=== PATIENT | male | born 1940 | race Caucasian/White ===

== ENCOUNTER 2018-02-10 23:27 | Emergency (ER) | payer OTHER ==
--- OUTSIDE RECORDS SUMMARY | 2018-02-10 23:30 | XMS REPORT | Clinical Summary ---
:1940 Author Organization [facility] Address [address] [place] [address] Phone Care Team Providers Name Role Phone Unavailable Primary Care Provider Unavailable Allergies No Known Allergies Current Medications Prescription Sig. Disp. Refills Start End Date Status Date rosuvastatin Take 5 mg by Active (CRESTOR) 5 MG mouth daily. tablet clopidogrel (PLAVIX) Take 75 mg by Active 75 mg tablet mouth daily. aspirin 81 MG EC Take 81 mg by Active tablet mouth 2 (two) times daily. cetirizine (ZYRTEC) Take 10 mg by Active 10 MG tablet mouth daily. fluticasone 1 spray by Nasal Active (FLONASE) 50 route daily. mcg/actuation nasal spray lactobacillus Take 1 capsule Active rhamnosus, GG, by mouth daily. (CULTURELLE) 10 billion cell capsule docusate sodium Take 100 mg by Active (COLACE) 100 MG mouth 2 (two) capsule times daily. lisinopril Take 5 mg by Active (PRINIVIL,ZESTRIL) 5 mouth 2 (two) MG tablet times daily. meloxicam (MOBIC) 15 Take 15 mg by Active MG tablet mouth as needed for Pain. sulfamethoxazole-tri Take 1 tablet by Active methoprim (BACTRIM mouth 2 (two) DS) 800-160 mg per times daily. tablet tamsulosin (FLOMAX) Take 1 capsule 60 capsule 0 Active 0.4 mg Cap 24 hr (0.4 mg total) 8 capsule by mouth daily. nitrofurantoin, Take 1 capsule 10 capsule 0 02/16/20 Active macrocrystal-monohyd (100 mg total) 8 18 rate, (MACROBID) 100 by mouth 2 (two) MG capsule times daily for 5 days. traMADol (ULTRAM) 50 Take 1 tablet 15 tablet 0 02/21/20 Active mg tablet (50 mg total) by 8 18 mouth every 6 (six) hours as needed for Pain for up to 10 days. Max Daily Amount: 200 mg phenazopyridine Take 1 tablet 10 tablet 0 02/14/20 Active (PYRIDIUM) 100 MG (100 mg total) 8 18 tablet by mouth 3 (three) times daily as needed for Pain for up to 3 days. oxybutynin Take 1 tablet (5 21 tablet 0 02/11/20 Active (DITROPAN) 5 MG mg total) by 8 19 tablet mouth 3 (three) times daily. tamsulosin (FLOMAX) Take 0.4 mg by 02/08/20 Discontinued 0.4 mg Cp24 24 hr mouth 2 (two) 18 capsule times daily. metoprolol Take 25 mg by 09/21/19 Discontinued (LOPRESSOR) 25 MG mouth 2 (two) 18 tablet times daily. B.infantis-B.ani-B.l Take by mouth. 09/10/19 Discontinued noni-B.bifi 10-15 mg 18 TbEC ipratropium Inhale 2 puffs 09/10/19 Discontinued (ATROVENT HFA) 17 by mouth via 18 mcg/actuation inhaler 2 (two) inhaler times daily. meloxicam (MOBIC) 15 Take 15 mg by 02/08/20 Discontinued MG tablet mouth daily as 18 needed for Pain. Missing or Take 4 tablets 12/31/19 Discontinued Non-Formulary by mouth daily 18 MedicationIndication Methyl Sulfonyl s: joint pain . metoprolol Take 0.5 tablets 30 tablet 0 09/21/19 Discontinued (LOPRESSOR) 25 MG (12.5 mg total) 8 18 tablet by mouth 2 (two) times daily for 30 days. metoprolol Take 1 tablet 60 tablet 0 10/21/19 (LOPRESSOR) 25 MG (25 mg total) by 8 18 tablet mouth 2 (two) times daily for 30 days. metoprolol Take 25 mg by 02/08/20 Discontinued (TOPROL-XL) 25 MG 24 mouth 2 (two) 18 hr tablet times daily with breakfast and dinner. polyethylene glycol Take 17 g by 510 g 0 12/19/19 Discontinued (GLYCOLAX) 17 gram mouth daily as 8 18 packet needed for up to 30 days. senna-docusate Take 2 tablets 30 tablet 0 12/19/19 Discontinued (SENOKOT S) 8.6-50 by mouth daily 8 18 mg per tablet as needed for Constipation for up to 30 days. simethicone Take 1 tablet 30 tablet 0 12/19/19 Discontinued (MYLICON) 80 MG (80 mg total) by 8 18 chewable tablet mouth 4 (four) times daily for 10 days. levoFLOXacin Take 1 tablet 20 tablet 0 12/19/19 Discontinued (LEVAQUIN) 500 MG (500 mg total) 8 18 tablet by mouth daily for 20 days. levoFLOXacin Take 1 tablet 30 tablet 0 12/19/19 Discontinued (LEVAQUIN) 500 MG (500 mg total) 8 18 tablet by mouth daily for 30 days. polyethylene glycol Take 17 g by 510 g 0 12/31/19 Discontinued (GLYCOLAX) 17 gram mouth daily as 8 18 packet needed for up to 30 days. senna-docusate Take 2 tablets 30 tablet 0 12/31/19 Discontinued (SENOKOT S) 8.6-50 by mouth daily 8 18 mg per tablet as needed for Constipation for up to 30 days. simethicone Take 1 tablet 30 tablet 0 12/29/19 (MYLICON) 80 MG (80 mg total) by 8 18 chewable tablet mouth 4 (four) times daily for 10 days. levoFLOXacin Take 1 tablet 30 tablet 0 01/10/20 Discontinued (LEVAQUIN) 500 MG (500 mg total) 8 18 tablet by mouth daily for 30 days. oxybutynin Take 1 tablet (5 10 tablet 0 01/20/20 (DITROPAN) 5 MG mg total) by 8 18 tablet mouth every 8 (eight) hours as needed (bladder spasms) for up to 10 days. phenazopyridine Take 1 tablet 30 tablet 0 01/13/20 (PYRIDIUM) 200 MG (200 mg total) 8 18 tablet by mouth 3 (three) times daily as needed for Pain for up to 3 days. tamsulosin (FLOMAX) Take 1 capsule 60 capsule 0 02/11/20 Suspended 0.4 mg Cap 24 hr (0.4 mg total) 8 18 capsule by mouth daily. docusate sodium Take 1 capsule 20 capsule 0 01/20/20 (COLACE) 100 MG (100 mg total) 8 18 capsule by mouth daily as needed for Constipation for up to 10 days. acetaminophen-codein Take 1 tablet by 15 tablet 0 01/20/20 e (TYLENOL-CODEINE mouth every 4 8 18 #3) 300-30 mg per (four) hours as tablet needed for up to 10 days. Max Daily Amount: 6 tablets ciprofloxacin HCl Take 1 tablet 14 tablet 0 01/17/20 (CIPRO) 500 MG (500 mg total) 8 18 tablet by mouth 2 (two) times daily for 7 days. nitrofurantoin, Take 1 capsule 14 capsule 0 01/17/20 macrocrystal-monohyd (100 mg total) 8 18 rate, (MACROBID) 100 by mouth 2 (two) MG capsule times daily for 7 days. Active Problems Problem Noted Date Right nephrolithiasis 01/07/2018 Complicated UTI (urinary tract infection) 12/17/2017 Acute low back pain without sciatica, unspecified back pain laterality 2017 Aortic stenosis, severe to moderate 09/18/2017 COPD (chronic obstructive pulmonary disease) (HCC) 09/18/2017 HTN (hypertension) chronic arterial 09/18/2017 CAD (coronary artery disease), [place] coronary artery 09/18/2017 H/O TIA (transient ischemic attack) x 2 09/18/2017 BPH (benign prostatic hyperplasia) 09/18/2017 Hypercholesteremia 09/18/2017 Kidney stones 09/18/2017 Skin cancer (Left adventism) 09/18/2017 S/P CABG x 3 (1999) 09/18/2017 S/P AAA repair (01/2017) 09/18/2017 Obesity, Class I, BMI 30-34.9 09/18/2017 Former smoker (40 pack year, quit 06/03/1999) 09/18/2017 Arthritis 09/18/2017 Moderatley enlarged LA (left atrium) 09/18/2017 Ventricular tachycardia (HCC) 09/18/2017 PAD (peripheral artery disease) ([facility]) 08/21/2017 Encounters Date Type Specialty Care Team Description 02/10/2018 Hospital Encounter Yinka Marino MD 02/10/2018 Procedure Pass 02/10/2018 Surgery Ned CYSTOSCOPY,INSERTION MD Yinka URETERAL STENTS 02/07/2018 Hospital Encounter Pre-Admission Narciso Marino MD 02/07/2018 Anesthesia Event Michael Paul MD 01/08/2018 Procedure Pass 01/08/2018 Surgery EYAL Marino,INSERTION MD Yinka URETERAL STENTS 01/07/2018 - Hospital Encounter General Internal Ned, 01/09/2018 Medicine MD Yinka 01/06/2018 Orders Only Urology Yinka Marino MD 01/06/2018 Orders Only Urology Yinka Marino MD 12/30/2017 Hospital Encounter Pre-Admission Naveen Marino MD 12/30/2017 Anesthesia Event Vira Ritchie, TIFFANIE 12/30/2017 Orders Only Urology Ned, Renal stone (Primary MD Yinka Dx) 12/30/2017 Anesthesia Event Pre-Admission Naveen Ritchie NP 12/20/2017 Telephone Infectious Kielhofner, Diseases Katherine Hummel MD 12/16/2017 - Hospital Encounter General Internal Amando Larson Acute low back pain 12/18/2017 Medicine MD Pardeep without sciatica, Conchis, unspecified back pain Mrinalini Zade, laterality (Primary MD Dx);Acute Mezrahi, Mary, pyelonephritis;Nephro MD stomy tube failure with subsequent urine leak ([facility]);Chronic obstructive pulmonary disease, unspecified COPD type ([facility]);Essential hypertension;Aortic stenosis, severe;Arthritis;Ramos gn prostatic hyperplasia, unspecified whether lower urinary tract symptoms present 09/18/2017 - Hospital Encounter Cardiology Bg Solis Aortic stenosis, 09/20/2017 MD Maurice severe;Ventricular tachycardia ([facility]);At high risk for hemodynamic instability 09/18/2017 Anesthesia Event Pardeep Ashley MD 09/18/2017 Procedure Pass 09/18/2017 Surgery Bg Solis,FREDDIE Richards MD ETER CORE AORTIC VALVE (TAVR/CYNTHIA) 09/17/2017 Hospital Encounter Bg Solis MD 09/11/2017 Hospital Encounter Ned, Hydronephrosis with MD Yinka urinary obstruction due to ureteral calculus;Kidney stone 09/06/2017 Outside Orders Central Scheduling Ned, Hydronephrosis with MD Yinka urinary obstruction due to ureteral calculus (Primary Dx);Kidney stone 08/21/2017 Hospital Encounter Martín Dutta PAD (peripheral MD True artery disease) ([facility]) 08/21/2017 Orders Only General Internal Medicine 08/21/2017 Procedure Pass 08/21/2017 Surgery Martín Dutta PERIPHERAL ANGIOS / MD True AORTOGRAM 08/02/2017 Hospital Encounter Radiology Yinka Jon Aortic valve MD Natalia stenosis, etiology of cardiac valve disease unspecified 08/02/2017 Hospital Encounter Radiology Yinka Jon Aortic valve MD Natalia stenosis, etiology of cardiac valve disease unspecified 08/02/2017 Hospital Encounter Respiratory Yinka Jon Aortic valve Therapy MD Natalia stenosis, etiology of cardiac valve disease unspecified 07/30/2017 Outside Orders Central Scheduling Yinka Jon Aortic valve MD Natalia stenosis, etiology of cardiac valve disease unspecified (Primary Dx) 05/24/2017 Hospital Encounter Cardiology Yinka Jon Nonrheumatic aortic MD Natalia valve stenosis 05/24/2017 Orders Only Cardiology Yinka Jon Nonrheumatic aortic MD Natalia valve stenosis (Primary Dx) after 02/09/2017 Social History Tobacco Use Types Packs/Day Years Used Date Former Smoker Quit: 1999 Smokeless Tobacco: Never Used Alcohol Use Drinks/Week oz/Week Comments No Sex Assigned at Date Recorded Not on file Last Filed Vital Signs Vital Sign Reading Time Taken Blood Pressure 132/61 02/10/2018 2:02 PM CDT Pulse 71 02/10/2018 2:02 PM CDT Temperature 36.6 C (97.8 F) 02/10/2018 2:02 PM CDT Respiratory Rate 16 02/10/2018 2:02 PM CDT Oxygen Saturation 98% 02/10/2018 2:02 PM CDT Inhaled Oxygen Concentration - - Weight 87 kg (191 lb 12.8 oz) 02/10/2018 7:26 AM CDT Height 167.6 cm (5' 6") 02/10/2018 7:26 AM CDT Body Mass Index 30.96 02/10/2018 7:26 AM CDT Plan of Treatment Not on file Implants Implanted Type Area Multicultural Services Librarian Device Expiration Model / Identifier Date Serial / Lot Mynxgrip Vascular Closure Device Cardiovascular Left: [id number] / Implanted: Qty: 1 on 08/21/2017 by Martín Dutta MD Groin / [id number] Mynxgrip Vascular Closure Device Cardiovascular Right: [id number] / Implanted: Qty: 1 on 08/21/2017 by Martín Dutta MD Groin / [id number] Closure Sys Perclose Progl 6fr [id number] - Sn/A Cardiovascular N/A: BA 07/03/2019 [id number] / Implanted: Qty: 3 on 09/18/2017 by Yinka Jon MD Arterial LAB :VASC DEV N/A / [id number] Patch Vasc [place] 1.65mm 1x6in [id number] - [id number] Graft/Patch Right: CR 04/30/2022 [id number] / Implanted: Qty: 1 on 09/18/2017 by Bg Solis MD Groin BARD :PERIPHERA / L VASC [id number] Stent Uret Cntour Inj [id number] - [id number] Uro Stent BOSTON 03/15 [id number] / Implanted: Qty: 1 on 01/08/2018 by Yinka Marino MD SCI:UROLOGY/GY / NECOLOGY [id number] Set Stent Injection 6x26cm [id number] - [id number] Uro Stent Right: [place]OSTON [id number] / Implanted: Qty: 1 on 02/10/2018 by Yinka Marino MD Ureter SCI: ONCOLOGY / [id number] Valve Aortic 29 [id number] - [id number] Valves N/A: Aorta MEDTRONIC:STRU 10/27/2018 [id number] / Implanted: Qty: 1 on 09/18/2017 by Yinka Jon MD CTURAL HEART [id number] / N/A Procedures Procedure Name Priority Date/Time Associated Diagnosis Comments INJECTION,RETROGRADE 01/08/2018 11:50 AM Stone, kidney URETHROGRAM CDT CYSTOSCOPY,URETEROSCOPY 01/08/2018 11:50 AM Stone, kidney W/ LASER LITHOTRIPSY CDT CYSTOSCOPY,INSERTION 01/08/2018 11:50 AM Stone, kidney URETERAL STENTS CDT RUDOLPH 09/18/2017 10:50 AM Stenosis of aorta CDT REPLACEMENT,TRANSCATHETE 09/18/2017 10:50 AM Stenosis of aorta R CORE AORTIC VALVE CDT (TAVR/CYNTHIA) PERIPHERAL ANGIOS / 08/21/2017 11:25 AM ILIAC STENOSIS AORTOGRAM CDT Case Notes 3CASE POP6 AORTAGRAM WITH ILIAC ANGIOGRAM, WITH POSS INTERVENTION/REQ 11: 30M CASE/CPT CODE 43048 after 02/09/2017 Results FL spud grader in or 30 minute increments (02/10/2018 1:20 PM)Only the most recent of2 resultswithin the time period is included. Specimen Performing Laboratory GE RIS Narrative FINAL REPORT INDICATION: Ureteroscopy with laser IMPRESSION: 65 fluoroscopic images obtained during a surgical procedure performed by another physician (NOT the undersigned radiologist) were provided for postprocedural interpretation. Intraoperative consultation with the radiologist was not requested. A right nephroureteral stent is in place. There is removal of this stent, access and instrumentation of the right renal collecting system, injection of contrast revealing collecting system dilatation, and placement of a new nephroureteral stent. Fluoroscopy was not performed by the undersigned radiologist. Provided fluoroscopy time: 1.28 minutes, 65 images Signed: Bea Mendoza MD Report Verified Date/Time:02/10/2018 13:59:29 Reading Location: [address] Consult Reading Room Procedure Note Interface, External Ris In - 02/10/2018 2:01 PM CDT FINAL REPORT INDICATION: Ureteroscopy with laser IMPRESSION: 65 fluoroscopic images obtained during a surgical procedure performed by another physician (NOT the undersigned radiologist) were provided for postprocedural interpretation. Intraoperative consultation with the radiologist was not requested. A right nephroureteral stent is in place. There is removal of this stent, access and instrumentation of the right renal collecting system, injection of contrast revealing collecting system dilatation, and placement of a new nephroureteral stent. Fluoroscopy was not performed by the undersigned radiologist. Provided fluoroscopy time: 1.28 minutes, 65 images Signed: Bea Mendoza MD Report Verified Date/Time: 02/10/2018 13:59:29 Reading Location: [facility] [id number] Consult Reading Room HM STRIP - SCAN (01/10/2018 10:40 AM)Only the most recent of3 resultswithin the time period is included.CBC with platelet count + automated diff (2017 5:11 AM)Only the most recent of8 resultswithin the time period is included. Component Value Ref Range WBC 8.7 3.5 - 10.5 K/L RBC 3.61 (L) 4.63 - 6.08 M/L Hemoglobin 10.3 (L) 13.7 - 17.5 GM/DL Hematocrit 33.5 (L) 40.1 - 51.0 % MCV 92.8 (H) 79.0 - 92.2 fL MCH 28.5 25.7 - 32.2 pg MCHC 30.7 (L) 32.3 - 36.5 GM/DL RDW 16.8 (H) 11.6 - 14.4 % Platelets 114 (L) 150 - 450 K/CU MM MPV 11.1 9.4 - 12.4 fL nRBC 0 0 - 0 /100 WBC % Neutros 66 % % Lymphs 15 % % Monos 15 % % Eos 4 % % Baso 1 % # Neutros 5.72 (H) 1.78 - 5.38 K/L # Lymphs 1.27 (L) 1.32 - 3.57 K/L # Monos 1.27 (H) 0.30 - 0.82 K/L # Eos 0.34 0.04 - 0.54 K/L # Baso 0.06 0.01 - 0.08 K/L Immature Granulocytes-Relative 1 0 - 1 % Specimen Performing Laboratory Blood - Arm, Left [facility] [address] [place] [address] CBC with platelet count + automated diff (01/09/2018 5:11 AM)Only the most recent of8 resultswithin the time period is included. Specimen Performing Laboratory Blood Narrative The following orders were created for panel order CBC with platelet count + automated diff. Procedure Abnormality Status --------- ------ CBC with platelet count ...[[id number]]AbnormalFinal result Please view results for these tests on the individual orders. Basic Metabolic Panel - In AM (01/09/2018 5:11 AM)Only the most recent of11 resultswithin the time period is included. Component Value Ref Range Sodium 137 136 - 145 meq/L Potassium 4.3 3.5 - 5.1 meq/L Chloride 108 (H) 98 - 107 meq/L CO2 21 (L) 22 - 29 meq/L BUN 11 7 - 21 mg/dL Creatinine 0.97 0.57 - 1.25 mg/dL Glucose 115 (H) 70 - 105 mg/dL Calcium 9.0 8.4 - 10.2 mg/dL EGFR 75Comment: ESTIMATED GFR IS NOT ACCURATE mL/min/1.73 sq m CREATININE CLEARANCE IN PREDICTING GLOMERULAR FILTRATION RATE. ESTIMATED GFR IS NOT APPLICABLE FOR DIALYSIS PATIENTS. Specimen Performing Laboratory Blood - Arm, [address] [address] Tissue Exam (01/08/2018 5:15 PM) Component Value Ref Range Case Report Surgical Pathology Report Case: [id number] Authorizing Provider:Yinka Marino MD Collected: 01/08/2018 1715 Ordering Location: [facility] PERIOPERATIVE Received: 01/09/2018 0810 SERVICES Pathologist: Karey Salas MD Specimen:Ureteral Stent, right nephrostomy tube for ID DIAGNOSIS B.RIGHT NEPHROSTOMY TUBE, REMOVAL: -MEDICAL HARDWARE IDENTIFIED (GROSS ONLY) Signing Pathologist Direct Phone Line: [phone] CPT Code(s) 71420 SPECIMEN SOURCE B. Right nephrostomy tube GROSS DESCRIPTION B.The specimen is received in a fluidless container labeled with patient information and labeled "right nephrostomy tube" and consists of a white tube measuring 30 cm in length x 0.2 cm in diameter. The specimen is submitted for gross identification only. CG/pl MICROSCOPIC DESCRIPTION n/a Specimen Performing Laboratory Tissue - Ureteral Stent [address] [address] STONE ANALYSIS (01/08/2018 5:12 PM) Component Value Ref Range Stone Source KIDNEY Nidus Not observed COMPONENT 1 ([facility]) See Below Comment: Calcium Oxalate Dihydrate (Weddellite) 15% Calcium Oxalate Monohydrate (Whewellite) 70% Carbonate Apatite (Dahllite) 15% COMPONENT 2 ([facility]) DNR Stone Weight 1.1920 g Comment: The image will follow, unless test is cancelled or no picture is available to report. This test was developed and its analytical performance characteristics have been determined by [facility]. It has not been cleared or approved by the [place] Food and Drug Administration. This assay has been validated pursuant to the CLIA regulations and is used for clinical purposes. Specimen Performing Laboratory Tissue - Stone [facility] [address] [place] [address] Narrative Performing Lab *[facility], [address] [place] [address] Sony Harding MD, PhD Manual Differential (12/18/2017 5:19 AM)Only the most recent of3 resultswithin the time period is included. Component Value Ref Range % Neutros 73 % % Lymphs 17 % % Monos 8 % % Eos 2 % # Neutros 6.72 (H) 1.78 - 5.38 K/ul # Lymphs 1.56 1.32 - 3.57 K/ul # Monos 0.74 0.30 - 0.82 K/uL # Eos 0.18 0.04 - 0.54 K/uL Total Counted 100 WBC Morphology Normal Platelet Morphology Normal Polychromasia 1+ few Anisocytosis 1+ few Artifact Present Platelet Conc Decreased Specimen Performing Laboratory Blood - Arm, Left [address] [address] Narrative Received comment: User comments: Slide comments: Magnesium (12/18/2017 5:19 AM)Only the most recent of5 resultswithin the time period is included. Component Value Ref Range Magnesium 2.2 1.6 - 2.6 mg/dL Specimen Performing Laboratory Blood - Arm, Left [facility] [place] [place] [address] [place] [id number] ECG 12 lead (12/17/2017 3:11 PM)Only the most recent of3 resultswithin the time period is included. Specimen Performing Laboratory GE MUSE Narrative Ventricular Rate 86 BPM Atrial Rate 86 BPM P-R Interval 154 ms QRS Duration 90 ms Q-T Interval 370 ms QTC Calculation(Bazett) 442 ms P Holden 45 degrees R Holden 25 degrees T Holden 126 degrees Normal sinus rhythm ST & T wave abnormality, consider lateral ischemia Abnormal ECG When compared with ECG of 18-SEP-2017 17:55, T wave inversion no longer evident in Inferior leads Confirmed by MD PEREZ JOSEPH P ([id number]) on 12/18/2017 6:35:25 AM Procedure Note Interface, External Ris In - 12/18/2017 6:35 AM CDT Ventricular Rate 86 BPM Atrial Rate 86 BPM P-R Interval 154 ms QRS Duration 90 ms Q-T Interval 370 ms QTC Calculation(Bazett) 442 ms P Holden 45 degrees R Holden 25 degrees T Holden 126 degrees Normal sinus rhythm ST & T wave abnormality, consider lateral ischemia Abnormal ECG When compared with ECG of 18-SEP-2017 17:55, T wave inversion no longer evident in Inferior leads Confirmed by MD PEREZ JOSEPH P ([id number]) on 12/18/2017 6:35:25 AM IR Drainage Catheter Change (12/16/2017 2:45 PM) Specimen Performing Laboratory GE RIS Narrative FINAL REPORT Right percutaneous nephrostomy catheter exchange. History: Back pain, urinary retention Modality: Fluoroscopy Sedation: Versed 1.0 mg and fentanyl 50 mcg was given intravenously for conscious sedation.Vital signs were monitored throughout the procedure by a nurse, and remained stable. Physician intra-service time was 30 minutes. Insurance Professional:Uriah Johnston MD. Manager Field:Jas Approach: Existing right nephrostomy Estimated blood loss:< 5 cc. Specimen: None. Fluoroscopy Time: 3.3 min. Reference Air Kerma (Ka, r): 47.3 mGy. Technique: Informed written consent was obtained. Discussion of risks, benefits, and alternatives were made with the patient. The patient expressed understanding and agreed to proceed.A universal timeout was performed prior to starting the procedure.All elements maximal sterile barrier technique was utilized for this procedure, including utilization of sterile scrub solution for skin prep, a large sterile sheet to cover the areas of the patient that were not prepped, and hand hygiene, mask, head covering, and sterile gown for performing radiologist and scrub technologist. The skin was locally anesthetized with lidocaine 2%. Contrast was unable to be injected through the existing right nephrostomy catheter as it was completely occluded. The catheter was then severed. We tried to advance several guidewires through the catheter with secondary to complete occlusion which could not advance the wire through the catheter. A 9 Kazakh sheath was advanced over the catheter and into the kidney. The catheter is able to be removed through the sheath. A guidewire was then inserted through the sheath and coiled within the renal pelvis. The sheath was removed and a new 8.5 Kazakh catheter was advanced over the guidewire and into the renal pelvis. The pigtail catheter was locked after the guidewire was removed. Contrast injection confirmed proper positioning of the right nephrostomy. The catheter is unchanged. The patient's skin with 2-0 silk and connected to a drainage bag. The patient tolerated the procedure well without evidence of immediate complication. Impression: Successful and uncomplicated exchange of a right nephrostomy catheter. Given that the catheter was completely encrusted it is recommended that the patient have more frequent exchange of the catheter, ideally every six weeks. Signed: Uriah Johnston MD Report Verified Date/Time:12/18/2017 10:11:33 Reading Location: [facility] Diagnostic Imaging Reading Room - [facility] 1310.12 Procedure Note Interface, External Ris In - 12/18/2017 10:13 AM CDT FINAL REPORT Right percutaneous nephrostomy catheter exchange. History: Back pain, urinary retention Modality: Fluoroscopy Sedation: Versed 1.0 mg and fentanyl 50 mcg was given intravenously for conscious sedation. Vital signs were monitored throughout the procedure by a nurse, and remained stable. Physician intra-service time was 30 minutes. Insurance Professional: Uriah Johnston MD. Manager Field: Jas Approach: Existing right nephrostomy Estimated blood loss: < 5 cc. Specimen: None. Fluoroscopy Time: 3.3 min. Reference Air Kerma (Ka, r): 47.3 mGy. Technique: Informed written consent was obtained. Discussion of risks, benefits, and alternatives were made with the patient. The patient expressed understanding and agreed to proceed. A universal timeout was performed prior to starting the procedure. All elements maximal sterile barrier technique was utilized for this procedure, including utilization of sterile scrub solution for skin prep, a large sterile sheet to cover the areas of the patient that were not prepped, and hand hygiene, mask, head covering, and sterile gown for performing radiologist and scrub technologist. The skin was locally anesthetized with lidocaine 2%. Contrast was unable to be injected through the existing right nephrostomy catheter as it was completely occluded. The catheter was then severed. We tried to advance several guidewires through the catheter with secondary to complete occlusion which could not advance the wire through the catheter. A 9 Kazakh sheath was advanced over the catheter and into the kidney. The catheter is able to be removed through the sheath. A guidewire was then inserted through the sheath and coiled within the renal pelvis. The sheath was removed and a new 8.5 Kazakh catheter was advanced over the guidewire and into the renal pelvis. The pigtail catheter was locked after the guidewire was removed. Contrast injection confirmed proper positioning of the right nephrostomy. The catheter is unchanged. The patient's skin with 2-0 silk and connected to a drainage bag. The patient tolerated the procedure well without evidence of immediate complication. Impression: Successful and uncomplicated exchange of a right nephrostomy catheter. Given that the catheter was completely encrusted it is recommended that the patient have more frequent exchange of the catheter, ideally every six weeks. Signed: Uriah Johnston MD Report Verified Date/Time: 12/18/2017 10:11:33 Reading Location: [facility] Diagnostic Imaging Reading Room - [facility] [id number] Urinalysis w/Microscopic (12/16/2017 9:10 AM)Only the most recent of2 resultswithin the time period is included. Component Value Ref Range Color, UA Yellow Clarity, UA Cloudy Specific [place], UA 1.014 1.001 - 1.035 pH, UA 8.0 5.0 - 8.0 Protein, UA 200 mg/dL (A) Negative Glucose, UA Negative Negative Ketones, UA Negative Negative Bilirubin, UA Negative Negative Blood, UA Moderate (A) Negative Nitrite, UA Positive (A) Negative Leukocytes, UA Large (A) Negative Urobilinogen, UA 0.2 0.2 - 1.0 mg/dL RBC, UA 3 /HPF WBC, UA >182 /HPF Bacteria, UA Moderate Specimen Source Urine, Voided Specimen Performing Laboratory Urine - Urine, Voided [address] [address] Urine culture (12/16/2017 9:10 AM)Only the most recent of2 resultswithin the time period is included. Component Value Ref Range Result >100,000 col/mL Escherichia coli (A) Result >100,000 col/mL Same organism has been isolated from cultures(s) of the same body site and collection date. Repeat identification and susceptibility testing performed only after consultation with the clinical microbiology laboratory. (A) Comment: Refer to previous culture of Proteus mirabilis Result >100,000 col/mL Pseudomonas aeruginosa (A) Specimen Performing Laboratory Urine - Urine, Voided [address] [address] Organism Antibiotic Method Susceptibility Escherichia coli Amikacin <=2: Susceptible Escherichia coli Ampicillin + Sulbactam >=32: Resistant Escherichia coli Aztreonam <=1: Susceptible Escherichia coli Cefepime <=1: Susceptible Escherichia coli Cefoxitin <=4: Susceptible Escherichia coli Ceftazidime <=1: Susceptible Escherichia coli Ceftriaxone <=1: Susceptible Escherichia coli Ertapenem <=0.5: Susceptible Escherichia coli Gentamicin <=1: Susceptible Escherichia coli Levofloxacin >=8: Resistant Escherichia coli Meropenem <=0.25: Susceptible Escherichia coli Nitrofurantoin <=16: Susceptible Escherichia coli Piperacillin + Tazobactam <=4: Susceptible Escherichia coli Tetracycline >=16: Resistant Escherichia coli Tobramycin <=1: Susceptible Escherichia coli Trimethoprim + Sulfamethoxazole >=320: Resistant Pseudomonas aeruginosa Amikacin <=8: Susceptible Pseudomonas aeruginosa Aztreonam 4: Susceptible Pseudomonas aeruginosa Cefepime <=4: Susceptible Pseudomonas aeruginosa Ceftazidime 2: Susceptible Pseudomonas aeruginosa Ciprofloxacin <=0.5: Susceptible Pseudomonas aeruginosa Doripenem 1: Susceptible Pseudomonas aeruginosa Gentamicin <=2: Susceptible Pseudomonas aeruginosa Imipenem 4: Resistant Pseudomonas aeruginosa Levofloxacin <=1: Susceptible Pseudomonas aeruginosa Meropenem <=0.5: Susceptible Pseudomonas aeruginosa Piperacillin <=16: Susceptible Pseudomonas aeruginosa Piperacillin + Tazobactam <=8: Susceptible Pseudomonas aeruginosa Tobramycin <=2: Susceptible VASCULAR DIAGRAM -SCAN (09/23/2017 1:51 PM)XR chest 1 view portable / bedside ( 09/20/2017 7:01 AM)Only the most recent of3 resultswithin the time period is included. Specimen Performing Laboratory GE RIS Narrative FINAL REPORT Chest one view INDICATION: Postop TAVR with lines COMPARISON: 09/19/2017 IMPRESSION: Right jugular transvenous pacing lead has been removed. Right jugular line extends to the SVC. 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 The cardiac silhouette is enlarged. There is pulmonary vascular congestion with decreased edema. Mild basilar opacities suggest atelectasis. No pneumothorax is seen. Signed: Bea Mendoza MD Report Verified Date/Time:09/20/2017 08:15:10 Reading Location: [facility] Radiology Reading Room Procedure Note Interface, External Ris In - 09/20/2017 8:17 AM CDT FINAL REPORT Chest one view INDICATION: Postop TAVR with lines COMPARISON: 09/19/2017 IMPRESSION: Right jugular transvenous pacing lead has been removed. Right jugular line extends to the SVC. 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 The cardiac silhouette is enlarged. There is pulmonary vascular congestion with decreased edema. Mild basilar opacities suggest atelectasis. No pneumothorax is seen. Signed: Bea Mendoza MD Report Verified Date/Time: 09/20/2017 08:15:10 Reading Location: [facility] Radiology Reading Room aPTT (09/20/2017 3:36 AM)Only the most recent of3 resultswithin the time period is included. Component Value Ref Range PTT 30.3 22.5 - 36.0 seconds Specimen Performing Laboratory Blood - Central Venous Line [facility] [address] [address] Prothrombin time/INR (09/20/2017 3:36 AM)Only the most recent of3 resultswithin the time period is included. Component Value Ref Range Protime 15.3 (H) 11.7 - 14.7 seconds INR 1.2 <=5.9 Specimen Performing Laboratory Blood - Central Venous Line [address] [address] Narrative RECOMMENDED COUMADIN/WARFARIN INR THERAPY RANGES STANDARD DOSE: 2.0 - 3.0 Includes: PROPHYLAXIS for venous thrombosis, systemic embolization; TREATMENT for venous thrombosis and/or pulmonary embolus. HIGH RISK: Target INR is 2.5-3.5 for patients with mechanical heart valves. CBC (Hemogram only) (09/20/2017 3:36 AM)Only the most recent of2 resultswithin the time period is included. Component Value Ref Range WBC 9.5 3.5 - 10.5 K/L RBC 3.13 (L) 4.63 - 6.08 M/L Hemoglobin 9.1 (L) 13.7 - 17.5 GM/DL Hematocrit 28.4 (L) 40.1 - 51.0 % MCV 90.7 79.0 - 92.2 fL MCH 29.1 25.7 - 32.2 pg MCHC 32.0 (L) 32.3 - 36.5 GM/DL RDW 16.5 (H) 11.6 - 14.4 % Platelets 83 (L) 150 - 450 K/CU MM MPV 10.7 9.4 - 12.4 fL nRBC 0 0 - 0 /100 WBC Specimen Performing Laboratory Blood - Central Venous Line [address] [address] Phosphorus (09/20/2017 3:36 AM)Only the most recent of3 resultswithin the time period is included. Component Value Ref Range Phosphorus 2.5 2.3 - 4.7 mg/dL Specimen Performing Laboratory Blood - Central Venous Line [address] [address] TRANSFUSION SERVICE REPORT - SCAN (09/19/2017 5:44 PM)Only the most recent of3 resultswithin the time period is included.ECHOCARDIOGRAM REPORT - SCAN (2017 4:20 PM)Only the most recent of2 resultswithin the time period is included.2D Echo W/Doppler(CW/PW/Color) (09/19/2017 10:04 AM)Only the most recent of2 resultswithin the time period is included. Component Value Ref Range Ejection Fraction Specimen Performing Laboratory [facility] ECHO HEARTLAB MKCKESSON CPACS Narrative Transthoracic Echocardiography Report (TTE) Demographics Patient Name ARABELLA JAMISONate of Study 09/19/2017 BECKA [id number] Male Visit Number [id number] Room Number 2C50 Number Date of Birth1Referring Physician Bere Pederson Age76 year(s)Sample Cutter Yady Haq Interpreting Bg Perez, Physician MD Fellow SHOSHANA Lopez Procedure Type of Study TTE procedure:DEFINITY CONTRAST , 2DECHO W DOPPLER(CW/PW/COLOR) (STAT) Indications:Initial post operative evaluation of prosthetic valve. 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 Amount - 2 ml Height: 66 inches Weight: 84.37 kg (186 lbs) BSA: 1.94 m^2 BMI: 30.02 kg/m^2 HR: 67 bpm BP: 174/52 mmHg Summary Borderline concentric LV hypertrophy. The left ventricle is chamber size (by vol index) is normal. LV segments contract normally. LVEF by Smith's method of disk assessment is normal (55-60%) . Grade 2 diastolic dysfunction (moderately increased LA pressure). The right ventricular chamber size and systolic function are within normal limits. A percutaneous (TAVR) biologic AoV prosthesis is visualized . The prosthetic AoV appears well-seated with normal function by Doppler. Unable to estimate peak systolic PA pressure; inadequate TR velocity signal. No pericardial effusion is visualized. Signature Findings Rhythm/BPRegular sinus rhythm during the exam. Left Ventricle LV endocardium is adequately visualized with IV ultrasound enhancing agent. Borderline concentric LV hypertrophy. The left ventricle is chamber size (by vol index) is normal. LV segments contract normally. LVEF by Smith's method of disk assessment is normal (55-60%) . Grade 2 diastolic dysfunction (moderately increased LA pressure). Left AtriumLA size is normal . Right VentricleThe right ventricular chamber size and systolic function are within normal limits. Right Atrium RA size is normal. Aortic Valve A percutaneous (TAVR) biologic AoV prosthesis is visualized . The prosthetic AoV appears well-seated with normal function by Doppler. Mitral Valve Mild MV leaflet thickening. Mild MV leaflet calcification. Moderate mitral annular calcification. No evidence of mitral regurgitation. MV gradients are mildly increased in part due to mitral annular calcification . Tricuspid ValveTV is not well visualized. Unable to estimate peak systolic PA pressure; inadequate TR velocity signal. Pulmonic Valve PV is not well visualized; function appears normal by Doppler visualized. AortaAortic root size (SInus of Valsalva diameter) is normal . PericardiumNo pericardial effusion is visualized. IVC/SVC/PA/PV/PleuralThe estimated RA pressure by IVC dynamics 0-5mmHg . Chambers/Structures Left Atrium LA Volume: 52.06 ml LA Area: 19.04 cm^ 2 LA Vol. Index: 27 ml/m^2 Left Ventricle LVIDd: 4.95 cm LVIDs: 2.41 cm LV Septum Diastolic: 1.17 cm LV PW Diastolic: 1.13 cmLV FS: 51.3 % LVEDV Smith's:67.59 ml LVESV Smith's:27.17 mlLVEDVI: 35 ml/ m^2 LVEF Smith's: 59.8 %LVESVI: 14 ml/m^2 Doppler/Quantitative Measurements Mitral Valve MV Peak E-Wave: 1.38 m/sMV Peak A-Wave: 1.41 m/s E/A Ratio: 0.97 Mean Velocity: 1.09 m/s Peak Gradient: 7.59 mmHg Mean Gradient: 5.26 mmHg MV VTI: 49.98 cm MV Jay. Peak: 1.7 m/s Tissue Doppler E' Lateral Velocity: 0.06 m/s E/E': 22.76 Aortic Valve Peak Velocity: 2.04 m/s Mean Velocity: 1.3 m/s Peak Gradient: 16.61 mmHg Mean Gradient: 7.55 mmHg AV VTI: 39.96 cm AV DVI: 0.68 LVOT Peak Velocity: 1.35 m/s Peak Gradient: 7.25 mmHg Mean Velocity: 0.84 m/s Mean Gradient: 3.34 mmHg LVOT VTI: 27.08 cm Procedure Note Interface, External Ris In - 09/19/2017 3:52 PM CDT Transthoracic Echocardiography Report (TTE) Demographics Patient Name MANFRED JAMISON Date of Study 09/19/2017 BECKA Gender Male Visit Number [id number] Race Unknown Room Number 2C50 Number Date of 1940 Referring Physician Bere Pederson Age 76 year(s) Sample Cutter Yady Haq Interpreting Bg Perez Physician MD Fellow SHOSHANA Lopez Procedure Type of Study TTE procedure:DEFINITY CONTRAST , 2DECHO W DOPPLER(CW/PW/COLOR) (STAT) Indications:Initial post operative evaluation of prosthetic valve. 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 Amount - 2 ml Height: 66 inches Weight: 84.37 kg (186 lbs) BSA: 1.94 m^2 BMI: 30.02 kg/m^2 HR: 67 bpm BP: 174/52 mmHg Summary Borderline concentric LV hypertrophy. The left ventricle is chamber size (by vol index) is normal. LV segments contract normally. LVEF by Smith's method of disk assessment is normal (55-60%) . Grade 2 diastolic dysfunction (moderately increased LA pressure). The right ventricular chamber size and systolic function are within normal limits. A percutaneous (TAVR) biologic AoV prosthesis is visualized . The prosthetic AoV appears well-seated with normal function by Doppler. Unable to estimate peak systolic PA pressure; inadequate TR velocity signal. No pericardial effusion is visualized. Signature Findings Rhythm/BP Regular sinus rhythm during the exam. Left Ventricle LV endocardium is adequately visualized with IV ultrasound enhancing agent. Borderline concentric LV hypertrophy. The left ventricle is chamber size (by vol index) is normal. LV segments contract normally. LVEF by Smith's method of disk assessment is normal (55-60%) . Grade 2 diastolic dysfunction (moderately increased LA pressure). Left Atrium LA size is normal . Right Ventricle The right ventricular chamber size and systolic function are within normal limits. Right Atrium RA size is normal. Aortic Valve A percutaneous (TAVR) biologic AoV prosthesis is visualized . The prosthetic AoV appears well-seated with normal function by Doppler. Mitral Valve Mild MV leaflet thickening. Mild MV leaflet calcification. Moderate mitral annular calcification. No evidence of mitral regurgitation. MV gradients are mildly increased in part due to mitral annular calcification . Tricuspid Valve TV is not well visualized. Unable to estimate peak systolic PA pressure; inadequate TR velocity signal. Pulmonic Valve PV is not well visualized; function appears normal by Doppler visualized. Aorta Aortic root size (SInus of Valsalva diameter) is normal . Pericardium No pericardial effusion is visualized. IVC/SVC/PA/PV/Pleural The estimated RA pressure by IVC dynamics 0-5mmHg . Chambers/Structures Left Atrium LA Volume: 52.06 ml LA Area: 19.04 cm^2 LA Vol. Index: 27 ml/m^2 Left Ventricle LVIDd: 4.95 cm LVIDs: 2.41 cm LV Septum Diastolic: 1.17 cm LV PW Diastolic: 1.13 cm LV FS: 51.3 % LVEDV Smith's:67.59 ml LVESV Smith's:27.17 ml LVEDVI: 35 ml/m^2 LVEF Smith's: 59.8 % LVESVI: 14 ml/m^2 Doppler/Quantitative Measurements Mitral Valve MV Peak E-Wave: 1.38 m/s MV Peak A-Wave: 1.41 m/s E/A Ratio: 0.97 Mean Velocity: 1.09 m/s Peak Gradient: 7.59 mmHg Mean Gradient: 5.26 mmHg MV VTI: 49.98 cm MV Jay. Peak: 1.7 m/s Tissue Doppler E' Lateral Velocity: 0.06 m/s E/E': 22.76 Aortic Valve Peak Velocity: 2.04 m/s Mean Velocity: 1.3 m/s Peak Gradient: 16.61 mmHg Mean Gradient: 7.55 mmHg AV VTI: 39.96 cm AV DVI: 0.68 LVOT Peak Velocity: 1.35 m/s Peak Gradient: 7.25 mmHg Mean Velocity: 0.84 m/s Mean Gradient: 3.34 mmHg LVOT VTI: 27.08 cm Blood gas, arterial (09/19/2017 3:35 AM)Only the most recent of4 resultswithin the time period is included. Component Value Ref Range pH, Arterial 7.43 7.35 - 7.45 pCO2, Arterial 39 35 - 45 mmHg pO2, Arterial 112 (H) 80 - 90 mmHg O2 Sat, Arterial 98.1 (H) 96.0 - 97.0 % HCO3, Arterial 25 21 - 29 mmol/L Base Excess, Arterial 0.8 -2.0 - 3.0 mmol/L Patient Temperature 37.6 C FIO2 30.0 % Specimen Performing Laboratory Blood, Arterial [address] [address] Narrative Daily ABG with morning labs while patient is intubated. POC-Glucose meter (09/19/2017 1:02 AM) Component Value Ref Range POC-Glucose Meter 144 (H)Comment: TESTED AT [address] 70 - 110 mg/[place] [address] Specimen Performing Laboratory Blood [address] [address] Prepare RBC (09/18/2017 4:07 PM) Component Value Ref Range CROSSMATCH COMPATIBLE Unit ABO A Pos UNIT NUMBER [id number] Status RETURNED FROM ISSUE Blood Bank Product RED BLOOD CELLS PRODUCT CODE [id number] CROSSMATCH COMPATIBLE Unit ABO A Pos UNIT NUMBER [id number] Status RETURNED FROM ISSUE Blood Bank Product RED BLOOD CELLS PRODUCT CODE [id number] CROSSMATCH COMPATIBLE Unit ABO A Pos UNIT NUMBER [id number] Status RETURNED FROM ISSUE Blood Bank Product RED BLOOD CELLS PRODUCT CODE M9390Z61 CROSSMATCH COMPATIBLE Unit ABO A Pos UNIT NUMBER [id number] Status RETURNED FROM ISSUE Blood Bank Product RED BLOOD CELLS PRODUCT CODE [id number] Specimen Performing Laboratory [facility] [place] [facility] CRITICAL LABS (ABG,NA,K,H&H,GLUCOSE) (09/18/2017 3:41 PM)Only the most recent of3 resultswithin the time period is included. Specimen Performing Laboratory Blood, Arterial Narrative The following orders were created for panel order [facility] CRITICAL LABS (ABG,NA,K,H&H,GLUCOSE). Procedure Abnormality Status --------- ------ Blood gas, arterial[[id number]]AbnormalFinal result Sodium Na-Stat Lab[[id number]] NormalFinal result Potassium-Stat Lab[[id number]] NormalFinal result Glucose-Stat Lab[[id number]] AbnormalFinal result HGB/HCT (H&H)-Stat Lab[[id number]] Abnormal Final result Please view results for these tests on the individual orders. Potassium-Stat Lab (09/18/2017 3:41 PM)Only the most recent of3 resultswithin the time period is included. Component Value Ref Range Potassium 4.1 3.6 - 5.5 meq/L Specimen Performing Laboratory Blood, Arterial [address] [address] Sodium Na-Stat Lab (09/18/2017 3:41 PM)Only the most recent of3 resultswithin the time period is included. Component Value Ref Range Sodium 135 135 - 148 meq/L Specimen Performing Laboratory Blood, Arterial [address] [address] Glucose-Stat Lab (09/18/2017 3:41 PM)Only the most recent of3 resultswithin the time period is included. Component Value Ref Range Glucose 129 (H) 70 - 110 mg/dL Specimen Performing Laboratory Blood, Arterial [address] [address] HGB/HCT (H&H)-Stat Lab (09/18/2017 3:41 PM)Only the most recent of3 resultswithin the time period is included. Component Value Ref Range Hemoglobin 10.6 (L) 13.0 - 16.8 g/dL Hematocrit 31.0 (L) 40.0 - 50.0 % Specimen Performing Laboratory Blood, Arterial [address] [address] Calcium, Ionized (09/18/2017 3:41 PM)Only the most recent of3 resultswithin the time period is included. Component Value Ref Range Calcium, Ion 1.21 1.12 - 1.27 mmol/L pH, Blood 7.42 Specimen Performing Laboratory Blood [address] [address] Lactic acid, arterial, whole blood (09/18/2017 3:41 PM) Component Value Ref Range Lactate, Art 1.4 0.5 - 2.2 mmol/L Specimen Performing Laboratory Blood, Arterial [address] [address] Narrative Effective 10/05/2015: Units/Reference Range Change New: 0.5-2.2 mmol/LPrevious: 5-20 mg/dL ANESTHESIA RUDOLPH (09/18/2017 2:47 PM) Narrative Mariana Rasmussen MD 09/18/20172:47 PM RUDOLPH Date: 09/18/2017 11:48 AM Sex: Male Location: OR Requesting Physician: BG SOLIS Examiner: MARIANA RASMUSSEN KWASI BOTWE IntubatedSedated Patient screened for esoph disease: Yes Insertion: easy Probe Type: multiplane Modalities: 2D, CFM, CWD and PWD Aorta Size Dissection Plaque Thick Plaque Mobile Ascending Ao normal No < 3mm No Ao Arch normal No < 3mm No Descending Ao normal No < 3mm No Valves Annulus Stenosis Area (cm3) Gradient Regurgitation Leaflet Morphology Leaflet Motion Not Visualized Aortic valve normal severe moderate (3+) calcified restricted Mitral valve normal none trivial (1+) normal normal Tricuspid normal none none normal normal Atria Size SEC Thrombus Tumor Device Right Atrium normal No No No No Left Atrium normal No No No device Interatrial Septum: Morphology: normal ASD: Shunt: Interventricular Septum: Morphology: normal Defect: Shunt: Ventricles Cavity size Dimension Hypertrophy Thrombus Global FXN EF Right ventricle normalNo No normal Left ventricle normalYes No normal 50-55% Pericardium: normal Pre Intervention Summary: Aorta: No aneurysm, no dissection, no mobile plaques, multiple fixed plaques on aortic wall AV: trileaflet morphology, partially fused, severe aortic stenosis (TOMEKA 0.7cm2 by continuity equation, mean gradient 32mmHg), moderate aortic regurgitation (PHT 373ms, intermittent diastolic aortic flow reversal) LV: normal chamber size , mild concentric LVH, normal systolic function (EF 50-55% by qualitative assessment), no RWMA, no thrombus MV: normal morphology, trace mitral regurgitation, no mitral stenosis LA: no BRY thrombus, normal size and function PV: limited visualization RV: normal sized chamber, normal function, no thrombus TV: normal morphology, no tricuspid regurgitation RA: no thrombus no PFO by color dopper flow All findings communicated to surgical team. Post Intervention Summary:S/p Corevalve 29 off pressors Normal LV function as prior Bioprosthetic valve in place. Mild anterior perivalvular leak, mean grad 7mmhg, max 14 mmhg No Aortic dissection or pericardial effusions No new MR -> same as prior All findings shared with surgical team Procedure Note Mariana Rasmussen MD - 09/18/2017 11:48 AM CDT Formatting of this note may be different from the original. RUDOLPH Date: 09/18/2017 11:48 AM Sex: Male Location: OR Requesting Physician: BG SOLIS Examiner: MARIANA RASMUSSEN KWASI BOTWE Intubated Sedated Patient screened for esoph disease: Yes Insertion: easy Probe Type: multiplane Modalities: 2D, CFM, CWD and PWD Aorta Size Dissection Plaque Thick Plaque Mobile Ascending Ao normal No < 3mm No Ao Arch normal No < 3mm No Descending Ao normal No < 3mm No Valves Annulus Stenosis Area (cm3) Gradient Regurgitation Leaflet Morphology Leaflet Motion Not Visualized Aortic valve normal severe moderate (3+) calcified restricted Mitral valve normal none trivial (1+) normal normal Tricuspid normal none none normal normal Atria Size SEC Thrombus Tumor Device Right Atrium normal No No No No Left Atrium normal No No No device Interatrial Septum: Morphology: normal ASD: Shunt: Interventricular Septum: Morphology: normal Defect: Shunt: Ventricles Cavity size Dimension Hypertrophy Thrombus Global FXN EF Right ventricle normal No No normal Left ventricle normal Yes No normal 50-55% Pericardium: normal Pre Intervention Summary: Aorta: No aneurysm, no dissection, no mobile plaques , multiple fixed plaques on aortic wall AV: trileaflet morphology, partially fused, severe aortic stenosis (TOMEKA 0.7cm2 by continuity equation, mean gradient 32mmHg), moderate aortic regurgitation ( PHT 373ms, intermittent diastolic aortic flow reversal) LV: normal chamber size , mild concentric LVH, normal systolic function (EF 50- 55% by qualitative assessment), no RWMA, no thrombus MV: normal morphology, trace mitral regurgitation, no mitral stenosis LA: no BRY thrombus, normal size and function PV: limited visualization RV: normal sized chamber, normal function, no thrombus TV: normal morphology, no tricuspid regurgitation RA: no thrombus no PFO by color dopper flow All findings communicated to surgical team. Post Intervention Summary: S/p Corevalve 29 off pressors Normal LV function as prior Bioprosthetic valve in place. Mild anterior perivalvular leak, mean grad 7mmhg , max 14 mmhg No Aortic dissection or pericardial effusions No new MR -> same as prior All findings shared with surgical team POC ACTIVATED CLOTTING TIME (09/18/2017 2:30 PM)Only the most recent of3 resultswithin the time period is included. Component Value Ref Range Activated Clotting Time 120Comment: TESTED AT [address] sec [address] Specimen Performing Laboratory Blood [address] [address] Type and screen, automated (09/17/2017 10:57 AM)Only the most recent of2 resultswithin the time period is included. Component Value Ref Range ABO/RH AUTOMATED (BEAKER) A POSITIVE Ab Scrn NEGATIVE Specimen Performing Laboratory Blood - Arm, Right [address] [address] PT/aPTT (09/17/2017 10:57 AM)Only the most recent of2 resultswithin the time period is included. Component Value Ref Range Protime 15.1 (H) 11.7 - 14.7 seconds INR 1.2 <=5.9 PTT 30.4 22.5 - 36.0 seconds Specimen Performing Laboratory Blood - Arm, [address] [address] Narrative RECOMMENDED COUMADIN/WARFARIN INR THERAPY RANGES STANDARD DOSE: 2.0 - 3.0 Includes: PROPHYLAXIS for venous thrombosis, systemic embolization; TREATMENT for venous thrombosis and/or pulmonary embolus. HIGH RISK: Target INR is 2.5-3.5 for patients with mechanical heart valves. B-type Natriuretic Factor (BNP) (09/17/2017 10:57 AM) Component Value Ref Range BNP 489 (H) 0 - 100 pg/mL Specimen Performing Laboratory Blood - [place], [address] [address] Albumin (09/17/2017 10:57 AM) Component Value Ref Range Albumin 3.3 (L) 3.5 - 5.0 g/dL Specimen Performing Laboratory Blood - [place], [address] [address] IR Percutaneous Nephrostomy - Ext. Drain Placement (09/11/2017 10:20 AM) Specimen Performing Laboratory GE RIS Narrative FINAL REPORT Fluoroscopic guided right nephrostomy tube placement, 09/11/2017. Clinical History: Right hydronephrosis, obstructing ureteral stone. Modality: Sonography and fluoroscopy Insurance Professional:Uriah Johnston MD. Manager Field:Tom Taylor MD. Sedation: Versed 1.0 mg and fentanyl 50 mcg was given intravenously for conscious sedation.Vital signs were monitored throughout the procedure by a nurse, and remained stable. Physician intra-service time was 35 minutes. Estimated Blood Loss:Less than 5 cc. Specimen: None. Fluoroscopy Time: 9.8 min. Reference Air Kerma (Ka, r): 13.8 mGy. Technique: R scrub IR Prep Local anesthesia was achieved with 1% lidocaine, the right lower pole calyx was visualized with ultrasound. Using ultrasound guidance, a 21-gauge Accustick needle was advanced into the calyx. Contrast injection confirmed placement within the calyx. A 0.018 inch wire was advanced through the needle a curled within the pelvis.The Accustick sheath was advanced over the wire and into the renal pelvis. We attempted to use a Berenstein catheter and Glidewire combination to navigate down the ureter but could not cross the obstructing stone within the proximal ureter. The decision was made to place a nephrostomy catheter and separator right nephroureteral stent. After a small skin incision was made, the soft tissue tract was dilated to 8 Kazakh. A 8.5 Kazakh drainage catheter was placed into the right renal pelvis. The wire was then removed, and the pigtail of the catheter was locked.The catheter was then secured onto the skin with 2-0 Prolene. The patient tolerated the procedure well, without immediate complications. The patient's vital signs remained stable throughout the procedure. Patient disposition: The patient was discharged from the department in stable condition. Impression: Successful and uncomplicated fluoroscopic guided right nephrostomy tube placement. Signed: Uriah Johnston MD Report Verified Date/Time:09/12/2017 18:01:37 Reading Location: [place] [address] Angio Body Reading Room Procedure Note Interface, External Ris In - 09/12/2017 6:03 PM CDT FINAL REPORT Fluoroscopic guided right nephrostomy tube placement, 09/11/2017. Clinical History: Right hydronephrosis, obstructing ureteral stone. Modality: Sonography and fluoroscopy Insurance Professional: Uriah Johnston MD. Manager Field: Tom Taylor MD. Sedation: Versed 1.0 mg and fentanyl 50 mcg was given intravenously for conscious sedation. Vital signs were monitored throughout the procedure by a nurse, and remained stable. Physician intra-service time was 35 minutes. Estimated Blood Loss: Less than 5 cc. Specimen: None. Fluoroscopy Time: 9.8 min. Reference Air Kerma (Ka, r): 13.8 mGy. Technique: R scrub IR Prep Local anesthesia was achieved with 1% lidocaine, the right lower pole calyx was visualized with ultrasound. Using ultrasound guidance, a 21-gauge Accustick needle was advanced into the calyx. Contrast injection confirmed placement within the calyx. A 0.018 inch wire was advanced through the needle a curled within the pelvis.The Accustick sheath was advanced over the wire and into the renal pelvis. We attempted to use a Berenstein catheter and Glidewire combination to navigate down the ureter but could not cross the obstructing stone within the proximal ureter. The decision was made to place a nephrostomy catheter and separator right nephroureteral stent. After a small skin incision was made, the soft tissue tract was dilated to 8 Kazakh. A 8.5 Kazakh drainage catheter was placed into the right renal pelvis. The wire was then removed, and the pigtail of the catheter was locked. The catheter was then secured onto the skin with 2-0 Prolene. The patient tolerated the procedure well, without immediate complications. The patient's vital signs remained stable throughout the procedure. Patient disposition: The patient was discharged from the department in stable condition. Impression: Successful and uncomplicated fluoroscopic guided right nephrostomy tube placement. Signed: Uriah Johnston MD Report Verified Date/Time: 09/12/2017 18:01:37 Reading Location: [place] [address] Angio Body Reading Room Platelet count (09/11/2017 6:00 AM) Component Value Ref Range Platelets 111 (L) 150 - 450 K/CU MM Specimen Performing [place] [address] CARDIAC CATH REPORT - SCAN (08/24/2017 3:10 PM)CTA chest (08/02/2017 1:07 PM) Specimen Performing Laboratory Blue Source Narrative Addendum Begins REPORT STATUS:A Addendum: I reviewed the images and the nonvascular findings enumerated by Dr. Espitia and tamanna. Paraseptal emphysematous changes are noted. The right lung base bronchi are slightly prominent without definite enlargement. There is a 1.2 cm stone in the proximal to mid portion of the right ureter with associated moderately severe hydronephrosis. 19 mm in diameter stone is noted in the right side of bladder near the junction of the distal ureter. Signed: London Dupree MD Report Verified Date/Time:08/02/2017 16:05:09 Reading Location: [place] [address] Angio Body Reading Room Addendum Ends FINAL REPORT CT angiography of the thoracoabdominal aorta and pelvic arteries, 02 August 2017 INDICATION: This is a 76 years old male, with a diagnosis of aortic stenosis, presents for preprocedure TAVR assessment. This study is performed in attempt to avoid invasive procedure. Technique: Spiral acquisition before and during contrast administration using a Tony multidetector CT scanner. Multiplanar 3-D volume rendering reformation was performed using independent workstation interactively by the dictating physician and the 3-D specialist. The amount of contrast use and method of administration can be found in the scanned Epic document. This exam was performed according to our departmental dose-optimisation programme, which includes automated exposure control, adjustment of the mA and/or kV according to patient size and/or use of iterative reconstruction technique. Dose modulation, iterative reconstruction, and/or weight based adjustment of the mA/kV was utilized to reduce the radiation dose to as low as reasonably achievable. FINDINGS: VASCULAR: The central pulmonary artery is normal in calibre. The cardiac chamber demonstrate normal atrioventricular and ventriculoarterial concordance, systemic and pulmonary venous return. The left ventricle is normal in size. Mild focal mitral annular calcification is seen, anteriorly and posteriorly. Coronary artery origins are normal and coronary artery calcification is seen. Patient is post coronary artery bypass surgery and a total of three bypass grafts are identified that are patent. A left internal mammary graft is identified connecting to the LAD territory. The minimum distance of the internal mammary artery, at image 121, is approximately 1.7 cm from the midline. However, at this level, it is immediately posterior to the left side of the sternum, at image 121. The right internal mammary artery is chipewwa. There is a bypass graft seen to the left coronary territory, and at image 102, and at its origin, it is approximately 1.8 cm behind the sternum. There is another bypass graft, also to the left coronary territory, image 141 located approximately 1.5 cm posterior to the sternum. Regarding the aorta, mild calcification seen in the aortic root. The transverse arch and descending thoracic aorta has mild calcific and noncalcific atherosclerosis present. In the infrarenal abdominal aorta, mild calcification is seen at the mesenteric level. Patient is post vascular graft placement in the infrarenal abdominal aorta, and this graft is widely patent with no anastomotic stenosis or extravasation of contrast identified, and the pelvic arteries are seen to be chipewwa, with calcific atherosclerosis identified. See below for measurement details. The pelvic arteries are tortuous and no significant obstructive lesion is identified. Arch vessel branching pattern is normal and the visualised arch vessels are seen to be widely patent proximally. Calcific atherosclerosis is identified in the takeoff of the left subclavian artery, and at image 63, it measures 3.6 x 7.1 mm in diameter. The right subclavian artery also has mild calcific atherosclerosis identified. At image 21, it measures 7.1 mm. The coeliac axis, has calcific atherosclerosis identified proximally, with moderate to significant focal lesion identified though the hepatic and splenic arteries are well enhanced by contrast. The SMA is widely patent. The JAMIE fills retrogradely by surrounding collaterals. Dimensions that may be helpful for TAVR as follows: There is mild calcification seen at the aortic root. The major and minor aortic annulus diameter measures 25.5 and 19.3 mm, respectively. The aortic annulus perimeter measured 73 mm and the cross-sectional area measures 406 mm2. The aortic annulus diameter at the traditional LVOT and coronal LVOT measures 20.4 and 22.3 mm, respectively. For reference purpose, per [employer] S3 brochure, recommendation are as follows: CT area between 273 to 345 mm2 (20 mm valve); 338 to 430 mm2 (23 mm valve); 430 to 546 mm2 (26 mm valve); 540 to 683 mm2 (29 mm valve). For reference purpose, per [employer] R brochure, recommendation are as follows: CT perimeter between 56.5-62.8 mm (23 mm valve); 62.8-72.3 mm (26 mm valve); 72.3-81.7 mm (29 mm valve); and 81.7-94.2. mm (34 mm valve). Agatston Score is 1980. Aortic valve area is approximately 83 sq mm. The sinus of Valsalva height to the takeoff of the coronary artery, RCC (diastole): 10.7 mm The sinus of Valsalva height to the takeoff of the coronary artery, LCC (diastole): 11.1 mm The most inferior bypass graft origin is approximately 4.9 cm from the aortic annulus. The sinus of Valsalva diameter, RCC (diastole): 29.6 mm The sinus of Valsalva diameter, LCC (diastole): 30.8 mm The sinus of Valsalva diameter, NCC (diastole): 29.1 mm The sinotubular junction measures approximately 25.4 x 24.7 mm. The aortic root angulation measures 47.7 degrees. The angle of delivery is approximately [facility] 2 CAU 5. A vascular graft is seen in the infrarenal abdominal aorta. The minimum and the perpendicular left common iliac artery measures 7.7 and 8.1 mm, respectively with cqrx-ck-jfvexgbkkermqstdoo and moderate calcific atherosclerosis present. The minimum and the perpendicular left external iliac artery measures 7.3 and 8.7 mm, respectively with mild to moderatetortuosity and mild calcific and noncalcificatherosclerosis present. The minimum and the perpendicular left femoral artery measures 6.4 and 6.7 mm, respectively with mildtortuosity and mildcalcific atherosclerosis present. The minimum and the perpendicular right common iliac artery measures 6.4 and 9.3 mm, respectively with moderate to significanttortuosity and moderate focalcalcific atherosclerosis present. The minimum and the perpendicular rightexternal iliac artery measures 5.8 and 6.9 mm, respectively with minimaltortuosity and minimalcalcific atherosclerosis present. The minimum and the perpendicular right femoral artery measures 4.5 and 7.6 mm, respectively with mild tortuosity and wtkp-kk-dwzworcw focal calcific atherosclerosis present. NONVASCULAR: The visualised thyroid gland appears unremarkable. The chest wall and mediastinum is remarkable for prior median sternotomy. No significant pericardial effusion is identified. The right ventricle is not adherent to the sternum, however, it is in close proximity, at image 181, it is approximately 3 mm posterior to the sternum. A number of small lymph nodes are seen in the mediastinum, some with fatty hilum, considered nonspecific in nature. In the lung windows, no obvious endobronchial lesion is seen and no pleural effusion is identified. Paraseptal emphysematous changes are seen. There could be minimal bronchiectatic changes identified, especially in the right base. Overall, no suspicious pulmonary nodule is identified. In the abdomen, the liver and spleen appears unremarkable. The liver edge is smooth. No abnormal enhancing structure is identified. There could be some ulceration of the liver edge. An addendum will dictated thereafter, if needed. Splenule is identified. The adrenal glands are not enlarged. The pancreas appears unremarkable. The gallbladder has no acute abnormalities identified. The left kidney is unremarkable. At least moderate hydronephrosis identified in the right kidney, and a stone is identified in the juncture of the proximal/mid ureter, at image 405 of the arterial phase image, that measures up to 1.2 cm in diameter. In addition, in the bladder, image 516, another stone is identified, measure 1.7 cm, at the juncture of the ureter/bladder. There are also smaller stones identified in the right kidney as well. There is minimal stranding is identified adjacent to the right kidney. The prostate gland is unremarkable. Bowel is not well assessed by CT angiography as enteric contrast is not given. No obvious bowel dilation is identified. No free air or free fluid seen in the abdomen and pelvis. No acute bony pathology is identified. A degree of demineralization is seen. Some degenerative changes are noted. CONCLUSIONS: 1.Patient has a diagnosis of aortic stenosis. Aortic valve is tricuspid. Agatston score is approximately 1980. Aortic valve area is approximately 83 sq mm by planimetry. Minimal calcification seen in the aortic root. In the infrarenal abdominal aorta, a graft is placed with no anastomotic stenosis identified. The pelvic arteries are patent, however, there is calcific atherosclerosis identified with minimum diameter as described above. Dimensions that may be helpful for TAVR as described above. Calcific atherosclerosis is seen in the pelvic arteries though no obvious obstructive lesion is identified. 2.Patient is post coronary artery bypass surgery where in total three bypass grafts are seen to the left coronary territory. 3.Other findings as described above. Moderate to large right hydronephrosis, with a stone identified at the juncture of the proximal/mid right ureter, also there is another stone identified at the juncture of the ureter/bladder. 4.An addendum will be dictated by the Chief Diversity Officer Radiologist regarding the nonvascular findings. Signed: Basilio Treadwell MD Report Verified Date/Time:08/02/2017 15:10:05 Reading Location: [place] [address] Cardiology MRI Procedure Note Interface, External Ris In - 08/05/2017 7:05 PM COORDINATING PRODUCER Addendum Begins REPORT STATUS:A Addendum: I reviewed the images and the nonvascular findings enumerated by Dr. Espitia and tamanna. Paraseptal emphysematous changes are noted. The right lung base bronchi are slightly prominent without definite enlargement. There is a 1.2 cm stone in the proximal to mid portion of the right ureter with associated moderately severe hydronephrosis. 19 mm in diameter stone is noted in the right side of bladder near the junction of the distal ureter. Signed: London Dupree MD Report Verified Date/Time: 08/02/2017 16:05:09 Reading Location: [place] [address] Angio Body Reading Room Addendum Ends FINAL REPORT CT angiography of the thoracoabdominal aorta and pelvic arteries, 02 August 2017 INDICATION: This is a 76 years old male, with a diagnosis of aortic stenosis, presents for preprocedure TAVR assessment. This study is performed in attempt to avoid invasive procedure. Technique: Spiral acquisition before and during contrast administration using a Tony multidetector CT scanner. Multiplanar 3-D volume rendering reformation was performed using independent workstation interactively by the dictating physician and the 3-D specialist. The amount of contrast use and method of administration can be found in the scanned Epic document. This exam was performed according to our departmental dose-optimisation programme, which includes automated exposure control, adjustment of the mA and/or kV according to patient size and/or use of iterative reconstruction technique. Dose modulation, iterative reconstruction, and/or weight based adjustment of the mA/kV was utilized to reduce the radiation dose to as low as reasonably achievable. FINDINGS: VASCULAR: The central pulmonary artery is normal in calibre. The cardiac chamber demonstrate normal atrioventricular and ventriculoarterial concordance, systemic and pulmonary venous return. The left ventricle is normal in size. Mild focal mitral annular calcification is seen, anteriorly and posteriorly. Coronary artery origins are normal and coronary artery calcification is seen. Patient is post coronary artery bypass surgery and a total of three bypass grafts are identified that are patent. A left internal mammary graft is identified connecting to the LAD territory. The minimum distance of the internal mammary artery, at image 121, is approximately 1.7 cm from the midline. However, at this level, it is immediately posterior to the left side of the sternum, at image 121. The right internal mammary artery is chipewwa. There is a bypass graft seen to the left coronary territory, and at image 102, and at its origin, it is approximately 1.8 cm behind the sternum. There is another bypass graft, also to the left coronary territory, image 141 located approximately 1.5 cm posterior to the sternum. Regarding the aorta, mild calcification seen in the aortic root. The transverse arch and descending thoracic aorta has mild calcific and noncalcific atherosclerosis present. In the infrarenal abdominal aorta, mild calcification is seen at the mesenteric level. Patient is post vascular graft placement in the infrarenal abdominal aorta, and this graft is widely patent with no anastomotic stenosis or extravasation of contrast identified, and the pelvic arteries are seen to be chipewwa, with calcific atherosclerosis identified. See below for measurement details. The pelvic arteries are tortuous and no significant obstructive lesion is identified. Arch vessel branching pattern is normal and the visualised arch vessels are seen to be widely patent proximally. Calcific atherosclerosis is identified in the takeoff of the left subclavian artery, and at image 63, it measures 3.6 x 7.1 mm in diameter. The right subclavian artery also has mild calcific atherosclerosis identified. At image 21, it measures 7.1 mm. The coeliac axis, has calcific atherosclerosis identified proximally, with moderate to significant focal lesion identified though the hepatic and splenic arteries are well enhanced by contrast. The SMA is widely patent. The JAMIE fills retrogradely by surrounding collaterals. Dimensions that may be helpful for TAVR as follows: There is mild calcification seen at the aortic root. The major and minor aortic annulus diameter measures 25.5 and 19.3 mm, respectively. The aortic annulus perimeter measured 73 mm and the cross-sectional area measures 406 mm2. The aortic annulus diameter at the traditional LVOT and coronal LVOT measures 20.4 and 22.3 mm, respectively. For reference purpose, per [facility] S3 brochure, recommendation are as follows: CT area between 273 to 345 mm2 (20 mm valve); 338 to 430 mm2 (23 mm valve); 430 to 546 mm2 (26 mm valve); 540 to 683 mm2 (29 mm valve). For reference purpose, per [employer] Evol[employer] R brochure, recommendation are as follows: CT perimeter between 56.5-62.8 mm (23 mm valve); 62.8-72.3 mm (26 mm valve); 72.3-81.7 mm (29 mm valve); and 81.7-94.2. mm (34 mm valve). Agatston Score is 1980. Aortic valve area is approximately 83 sq mm. The sinus of Valsalva height to the takeoff of the coronary artery, RCC (diastole): 10.7 mm The sinus of Valsalva height to the takeoff of the coronary artery, LCC (diastole): 11.1 mm The most inferior bypass graft origin is approximately 4.9 cm from the aortic annulus. The sinus of Valsalva diameter, RCC (diastole): 29.6 mm The sinus of Valsalva diameter, LCC (diastole): 30.8 mm The sinus of Valsalva diameter, NCC (diastole): 29.1 mm The sinotubular junction measures approximately 25.4 x 24.7 mm. The aortic root angulation measures 47.7 degrees. The angle of delivery is approximately [facility] 2 CAU 5. A vascular graft is seen in the infrarenal abdominal aorta. The minimum and the perpendicular left common iliac artery measures 7.7 and 8.1 mm, respectively with busk-ea-pgdntasy tortuosity and moderate calcific atherosclerosis present. The minimum and the perpendicular left external iliac artery measures 7.3 and 8.7 mm, respectively with mild to moderate tortuosity and mild calcific and noncalcific atherosclerosis present. The minimum and the perpendicular left femoral artery measures 6.4 and 6.7 mm, respectively with mild tortuosity and mild calcific atherosclerosis present. The minimum and the perpendicular right common iliac artery measures 6.4 and 9.3 mm, respectively with moderate to significant tortuosity and moderate focal calcific atherosclerosis present. The minimum and the perpendicular right external iliac artery measures 5.8 and 6.9 mm, respectively with minimal tortuosity and minimal calcific atherosclerosis present. The minimum and the perpendicular right femoral artery measures 4.5 and 7.6 mm, respectively with mild tortuosity and zfli-fw-vsndimex focal calcific atherosclerosis present. NONVASCULAR: The visualised thyroid gland appears unremarkable. The chest wall and mediastinum is remarkable for prior median sternotomy. No significant pericardial effusion is identified. The right ventricle is not adherent to the sternum, however, it is in close proximity, at image 181, it is approximately 3 mm posterior to the sternum. A number of small lymph nodes are seen in the mediastinum, some with fatty hilum, considered nonspecific in nature. In the lung windows, no obvious endobronchial lesion is seen and no pleural effusion is identified. Paraseptal emphysematous changes are seen. There could be minimal bronchiectatic changes identified, especially in the right base. Overall, no suspicious pulmonary nodule is identified. In the abdomen, the liver and spleen appears unremarkable. The liver edge is smooth. No abnormal enhancing structure is identified. There could be some ulceration of the liver edge. An addendum will dictated thereafter, if needed. Splenule is identified. The adrenal glands are not enlarged. The pancreas appears unremarkable. The gallbladder has no acute abnormalities identified. The left kidney is unremarkable. At least moderate hydronephrosis identified in the right kidney, and a stone is identified in the juncture of the proximal/mid ureter, at image 405 of the arterial phase image, that measures up to 1.2 cm in diameter. In addition, in the bladder, image 516, another stone is identified, measure 1.7 cm, at the juncture of the ureter/bladder. There are also smaller stones identified in the right kidney as well. There is minimal stranding is identified adjacent to the right kidney. The prostate gland is unremarkable. Bowel is not well assessed by CT angiography as enteric contrast is not given. No obvious bowel dilation is identified. No free air or free fluid seen in the abdomen and pelvis. No acute bony pathology is identified. A degree of demineralization is seen. Some degenerative changes are noted. CONCLUSIONS: 1. Patient has a diagnosis of aortic stenosis. Aortic valve is tricuspid. Agatston score is approximately 1980. Aortic valve area is approximately 83 sq mm by planimetry. Minimal calcification seen in the aortic root. In the infrarenal abdominal aorta, a graft is placed with no anastomotic stenosis identified. The pelvic arteries are patent, however, there is calcific atherosclerosis identified with minimum diameter as described above. Dimensions that may be helpful for TAVR as described above. Calcific atherosclerosis is seen in the pelvic arteries though no obvious obstructive lesion is identified. 2. Patient is post coronary artery bypass surgery where in total three bypass grafts are seen to the left coronary territory. 3. Other findings as described above. Moderate to large right hydronephrosis, with a stone identified at the juncture of the proximal/mid right ureter, also there is another stone identified at the juncture of the ureter/bladder. 4. An addendum will be dictated by the Chief Diversity Officer Radiologist regarding the nonvascular findings. Signed: Basilio Treadwell MD Report Verified Date/Time: 08/02/2017 15:10:05 Reading Location: [place] [id number] Cardiology MRI abdomen & pelvis (08/02/2017 1:07 PM) Specimen Performing Laboratory [facility] Narrative Addendum Begins REPORT STATUS:A Addendum: I reviewed the images and the nonvascular findings enumerated by Dr. Tian. Paraseptal emphysematous changes are noted. The right lung base bronchi are slightly prominent without definite enlargement. There is a 1.2 cm stone in the proximal to mid portion of the right ureter with associated moderately severe hydronephrosis. 19 mm in diameter stone is noted in the right side of bladder near the junction of the distal ureter. Signed: London Dupree MD Report Verified Date/Time:08/02/2017 16:05:09 Reading Location: [place] [id number] Angio Body Reading Room Addendum Ends FINAL REPORT CT angiography of the thoracoabdominal aorta and pelvic arteries, 02 August 2017 INDICATION: This is a 76 years old male, with a diagnosis of aortic stenosis, presents for preprocedure TAVR assessment. This study is performed in attempt to avoid invasive procedure. Technique: Spiral acquisition before and during contrast administration using a Tony multidetector CT scanner. Multiplanar 3-D volume rendering reformation was performed using independent workstation interactively by the dictating physician and the 3-D specialist. The amount of contrast use and method of administration can be found in the scanned Epic document. This exam was performed according to our departmental dose-optimisation programme, which includes automated exposure control, adjustment of the mA and/or kV according to patient size and/or use of iterative reconstruction technique. Dose modulation, iterative reconstruction, and/or weight based adjustment of the mA/kV was utilized to reduce the radiation dose to as low as reasonably achievable. FINDINGS: VASCULAR: The central pulmonary artery is normal in calibre. The cardiac chamber demonstrate normal atrioventricular and ventriculoarterial concordance, systemic and pulmonary venous return. The left ventricle is normal in size. Mild focal mitral annular calcification is seen, anteriorly and posteriorly. Coronary artery origins are normal and coronary artery calcification is seen. Patient is post coronary artery bypass surgery and a total of three bypass grafts are identified that are patent. A left internal mammary graft is identified connecting to the LAD territory. The minimum distance of the internal mammary artery, at image 121, is approximately 1.7 cm from the midline. However, at this level, it is immediately posterior to the left side of the sternum, at image 121. The right internal mammary artery is chipewwa. There is a bypass graft seen to the left coronary territory, and at image 102, and at its origin, it is approximately 1.8 cm behind the sternum. There is another bypass graft, also to the left coronary territory, image 141 located approximately 1.5 cm posterior to the sternum. Regarding the aorta, mild calcification seen in the aortic root. The transverse arch and descending thoracic aorta has mild calcific and noncalcific atherosclerosis present. In the infrarenal abdominal aorta, mild calcification is seen at the mesenteric level. Patient is post vascular graft placement in the infrarenal abdominal aorta, and this graft is widely patent with no anastomotic stenosis or extravasation of contrast identified, and the pelvic arteries are seen to be chipewwa, with calcific atherosclerosis identified. See below for measurement details. The pelvic arteries are tortuous and no significant obstructive lesion is identified. Arch vessel branching pattern is normal and the visualised arch vessels are seen to be widely patent proximally. Calcific atherosclerosis is identified in the takeoff of the left subclavian artery, and at image 63, it measures 3.6 x 7.1 mm in diameter. The right subclavian artery also has mild calcific atherosclerosis identified. At image 21, it measures 7.1 mm. The coeliac axis, has calcific atherosclerosis identified proximally, with moderate to significant focal lesion identified though the hepatic and splenic arteries are well enhanced by contrast. The SMA is widely patent. The JAMIE fills retrogradely by surrounding collaterals. Dimensions that may be helpful for TAVR as follows: There is mild calcification seen at the aortic root. The major and minor aortic annulus diameter measures 25.5 and 19.3 mm, respectively. The aortic annulus perimeter measured 73 mm and the cross-sectional area measures 406 mm2. The aortic annulus diameter at the traditional LVOT and coronal LVOT measures 20.4 and 22.3 mm, respectively. For reference purpose, per [facility] S3 brochure, recommendation are as follows: CT area between 273 to 345 mm2 (20 mm valve); 338 to 430 mm2 (23 mm valve); 430 to 546 mm2 (26 mm valve); 540 to 683 mm2 (29 mm valve). For reference purpose, per [employer] saeed, recommendation are as follows: CT perimeter between 56.5-62.8 mm (23 mm valve); 62.8-72.3 mm (26 mm valve); 72.3-81.7 mm (29 mm valve); and 81.7-94.2. mm (34 mm valve). Agatston Score is 1980. Aortic valve area is approximately 83 sq mm. The sinus of Valsalva height to the takeoff of the coronary artery, RCC (diastole): 10.7 mm The sinus of Valsalva height to the takeoff of the coronary artery, LCC (diastole): 11.1 mm The most inferior bypass graft origin is approximately 4.9 cm from the aortic annulus. The sinus of Valsalva diameter, RCC (diastole): 29.6 mm The sinus of Valsalva diameter, LCC (diastole): 30.8 mm The sinus of Valsalva diameter, NCC (diastole): 29.1 mm The sinotubular junction measures approximately 25.4 x 24.7 mm. The aortic root angulation measures 47.7 degrees. The angle of delivery is approximately [facility] 2 CAU 5. A vascular graft is seen in the infrarenal abdominal aorta. The minimum and the perpendicular left common iliac artery measures 7.7 and 8.1 mm, respectively with jqfy-ug-lewjobibannblblbri and moderate calcific atherosclerosis present. The minimum and the perpendicular left external iliac artery measures 7.3 and 8.7 mm, respectively with mild to moderatetortuosity and mild calcific and noncalcificatherosclerosis present. The minimum and the perpendicular left femoral artery measures 6.4 and 6.7 mm, respectively with mildtortuosity and mildcalcific atherosclerosis present. The minimum and the perpendicular right common iliac artery measures 6.4 and 9.3 mm, respectively with moderate to significanttortuosity and moderate focalcalcific atherosclerosis present. The minimum and the perpendicular rightexternal iliac artery measures 5.8 and 6.9 mm, respectively with minimaltortuosity and minimalcalcific atherosclerosis present. The minimum and the perpendicular right femoral artery measures 4.5 and 7.6 mm, respectively with mild tortuosity and czku-at-szuzwebh focal calcific atherosclerosis present. NONVASCULAR: The visualised thyroid gland appears unremarkable. The chest wall and mediastinum is remarkable for prior median sternotomy. No significant pericardial effusion is identified. The right ventricle is not adherent to the sternum, however, it is in close proximity, at image 181, it is approximately 3 mm posterior to the sternum. A number of small lymph nodes are seen in the mediastinum, some with fatty hilum, considered nonspecific in nature. In the lung windows, no obvious endobronchial lesion is seen and no pleural effusion is identified. Paraseptal emphysematous changes are seen. There could be minimal bronchiectatic changes identified, especially in the right base. Overall, no suspicious pulmonary nodule is identified. In the abdomen, the liver and spleen appears unremarkable. The liver edge is smooth. No abnormal enhancing structure is identified. There could be some ulceration of the liver edge. An addendum will dictated thereafter, if needed. Splenule is identified. The adrenal glands are not enlarged. The pancreas appears unremarkable. The gallbladder has no acute abnormalities identified. The left kidney is unremarkable. At least moderate hydronephrosis identified in the right kidney, and a stone is identified in the juncture of the proximal/mid ureter, at image 405 of the arterial phase image, that measures up to 1.2 cm in diameter. In addition, in the bladder, image 516, another stone is identified, measure 1.7 cm, at the juncture of the ureter/bladder. There are also smaller stones identified in the right kidney as well. There is minimal stranding is identified adjacent to the right kidney. The prostate gland is unremarkable. Bowel is not well assessed by CT angiography as enteric contrast is not given. No obvious bowel dilation is identified. No free air or free fluid seen in the abdomen and pelvis. No acute bony pathology is identified. A degree of demineralization is seen. Some degenerative changes are noted. CONCLUSIONS: 1.Patient has a diagnosis of aortic stenosis. Aortic valve is tricuspid. Agatston score is approximately 1980. Aortic valve area is approximately 83 sq mm by planimetry. Minimal calcification seen in the aortic root. In the infrarenal abdominal aorta, a graft is placed with no anastomotic stenosis identified. The pelvic arteries are patent, however, there is calcific atherosclerosis identified with minimum diameter as described above. Dimensions that may be helpful for TAVR as described above. Calcific atherosclerosis is seen in the pelvic arteries though no obvious obstructive lesion is identified. 2.Patient is post coronary artery bypass surgery where in total three bypass grafts are seen to the left coronary territory. 3.Other findings as described above. Moderate to large right hydronephrosis, with a stone identified at the juncture of the proximal/mid right ureter, also there is another stone identified at the juncture of the ureter/bladder. 4.An addendum will be dictated by the Chief Diversity Officer Radiologist regarding the nonvascular findings. Signed: Basilio Treadwell MD Report Verified Date/Time:08/02/2017 15:10:05 Reading Location: [place] [address] Cardiology MRI Procedure Note Interface, External Ris In - 08/02/2017 4:07 PM COORDINATING PRODUCER Addendum Begins REPORT STATUS:A Addendum: I reviewed the images and the nonvascular findings enumerated by Dr. Espitia and tamanna. Paraseptal emphysematous changes are noted. The right lung base bronchi are slightly prominent without definite enlargement. There is a 1.2 cm stone in the proximal to mid portion of the right ureter with associated moderately severe hydronephrosis. 19 mm in diameter stone is noted in the right side of bladder near the junction of the distal ureter. Signed: London Dupree MD Report Verified Date/Time: 08/02/2017 16:05:09 Reading Location: [place] [address] Angio Body Reading Room Addendum Ends FINAL REPORT CT angiography of the thoracoabdominal aorta and pelvic arteries, 02 August 2017 INDICATION: This is a 76 years old male, with a diagnosis of aortic stenosis, presents for preprocedure TAVR assessment. This study is performed in attempt to avoid invasive procedure. Technique: Spiral acquisition before and during contrast administration using a Tony multidetector CT scanner. Multiplanar 3-D volume rendering reformation was performed using independent workstation interactively by the dictating physician and the 3-D specialist. The amount of contrast use and method of administration can be found in the scanned Epic document. This exam was performed according to our departmental dose-optimisation programme, which includes automated exposure control, adjustment of the mA and/or kV according to patient size and/or use of iterative reconstruction technique. Dose modulation, iterative reconstruction, and/or weight based adjustment of the mA/kV was utilized to reduce the radiation dose to as low as reasonably achievable. FINDINGS: VASCULAR: The central pulmonary artery is normal in calibre. The cardiac chamber demonstrate normal atrioventricular and ventriculoarterial concordance, systemic and pulmonary venous return. The left ventricle is normal in size. Mild focal mitral annular calcification is seen, anteriorly and posteriorly. Coronary artery origins are normal and coronary artery calcification is seen. Patient is post coronary artery bypass surgery and a total of three bypass grafts are identified that are patent. A left internal mammary graft is identified connecting to the LAD territory. The minimum distance of the internal mammary artery, at image 121, is approximately 1.7 cm from the midline. However, at this level, it is immediately posterior to the left side of the sternum, at image 121. The right internal mammary artery is chipewwa. There is a bypass graft seen to the left coronary territory, and at image 102, and at its origin, it is approximately 1.8 cm behind the sternum. There is another bypass graft, also to the left coronary territory, image 141 located approximately 1.5 cm posterior to the sternum. Regarding the aorta, mild calcification seen in the aortic root. The transverse arch and descending thoracic aorta has mild calcific and noncalcific atherosclerosis present. In the infrarenal abdominal aorta, mild calcification is seen at the mesenteric level. Patient is post vascular graft placement in the infrarenal abdominal aorta, and this graft is widely patent with no anastomotic stenosis or extravasation of contrast identified, and the pelvic arteries are seen to be chipewwa, with calcific atherosclerosis identified. See below for measurement details. The pelvic arteries are tortuous and no significant obstructive lesion is identified. Arch vessel branching pattern is normal and the visualised arch vessels are seen to be widely patent proximally. Calcific atherosclerosis is identified in the takeoff of the left subclavian artery, and at image 63, it measures 3.6 x 7.1 mm in diameter. The right subclavian artery also has mild calcific atherosclerosis identified. At image 21, it measures 7.1 mm. The coeliac axis, has calcific atherosclerosis identified proximally, with moderate to significant focal lesion identified though the hepatic and splenic arteries are well enhanced by contrast. The SMA is widely patent. The JAMIE fills retrogradely by surrounding collaterals. Dimensions that may be helpful for TAVR as follows: There is mild calcification seen at the aortic root. The major and minor aortic annulus diameter measures 25.5 and 19.3 mm, respectively. The aortic annulus perimeter measured 73 mm and the cross-sectional area measures 406 mm2. The aortic annulus diameter at the traditional LVOT and coronal LVOT measures 20.4 and 22.3 mm, respectively. For reference purpose, per [facility] S3 brochure, recommendation are as follows: CT area between 273 to 345 mm2 (20 mm valve); 338 to 430 mm2 (23 mm valve); 430 to 546 mm2 (26 mm valve); 540 to 683 mm2 (29 mm valve). For reference purpose, per [employer] Evol[employer] R brochure, recommendation are as follows: CT perimeter between 56.5-62.8 mm (23 mm valve); 62.8-72.3 mm (26 mm valve); 72.3-81.7 mm (29 mm valve); and 81.7-94.2. mm (34 mm valve). Agatston Score is 1980. Aortic valve area is approximately 83 sq mm. The sinus of Valsalva height to the takeoff of the coronary artery, RCC (diastole): 10.7 mm The sinus of Valsalva height to the takeoff of the coronary artery, LCC (diastole): 11.1 mm The most inferior bypass graft origin is approximately 4.9 cm from the aortic annulus. The sinus of Valsalva diameter, RCC (diastole): 29.6 mm The sinus of Valsalva diameter, LCC (diastole): 30.8 mm The sinus of Valsalva diameter, NCC (diastole): 29.1 mm The sinotubular junction measures approximately 25.4 x 24.7 mm. The aortic root angulation measures 47.7 degrees. The angle of delivery is approximately [facility] 2 CAU 5. A vascular graft is seen in the infrarenal abdominal aorta. The minimum and the perpendicular left common iliac artery measures 7.7 and 8.1 mm, respectively with qtqb-nh-[id number] tortuosity and moderate calcific atherosclerosis present. The minimum and the perpendicular left external iliac artery measures 7.3 and 8.7 mm, respectively with mild to moderate tortuosity and mild calcific and noncalcific atherosclerosis present. The minimum and the perpendicular left femoral artery measures 6.4 and 6.7 mm, respectively with mild tortuosity and mild calcific atherosclerosis present. The minimum and the perpendicular right common iliac artery measures 6.4 and 9.3 mm, respectively with moderate to significant tortuosity and moderate focal calcific atherosclerosis present. The minimum and the perpendicular right external iliac artery measures 5.8 and 6.9 mm, respectively with minimal tortuosity and minimal calcific atherosclerosis present. The minimum and the perpendicular right femoral artery measures 4.5 and 7.6 mm, respectively with mild tortuosity and zvme-ae-gizkwiko focal calcific atherosclerosis present. NONVASCULAR: The visualised thyroid gland appears unremarkable. The chest wall and mediastinum is remarkable for prior median sternotomy. No significant pericardial effusion is identified. The right ventricle is not adherent to the sternum, however, it is in close proximity, at image 181, it is approximately 3 mm posterior to the sternum. A number of small lymph nodes are seen in the mediastinum, some with fatty hilum, considered nonspecific in nature. In the lung windows, no obvious endobronchial lesion is seen and no pleural effusion is identified. Paraseptal emphysematous changes are seen. There could be minimal bronchiectatic changes identified, especially in the right base. Overall, no suspicious pulmonary nodule is identified. In the abdomen, the liver and spleen appears unremarkable. The liver edge is smooth. No abnormal enhancing structure is identified. There could be some ulceration of the liver edge. An addendum will dictated thereafter, if needed. Splenule is identified. The adrenal glands are not enlarged. The pancreas appears unremarkable. The gallbladder has no acute abnormalities identified. The left kidney is unremarkable. At least moderate hydronephrosis identified in the right kidney, and a stone is identified in the juncture of the proximal/mid ureter, at image 405 of the arterial phase image, that measures up to 1.2 cm in diameter. In addition, in the bladder, image 516, another stone is identified, measure 1.7 cm, at the juncture of the ureter/bladder. There are also smaller stones identified in the right kidney as well. There is minimal stranding is identified adjacent to the right kidney. The prostate gland is unremarkable. Bowel is not well assessed by CT angiography as enteric contrast is not given. No obvious bowel dilation is identified. No free air or free fluid seen in the abdomen and pelvis. No acute bony pathology is identified. A degree of demineralization is seen. Some degenerative changes are noted. CONCLUSIONS: 1. Patient has a diagnosis of aortic stenosis. Aortic valve is tricuspid. Agatston score is approximately 1980. Aortic valve area is approximately 83 sq mm by planimetry. Minimal calcification seen in the aortic root. In the infrarenal abdominal aorta, a graft is placed with no anastomotic stenosis identified. The pelvic arteries are patent, however, there is calcific atherosclerosis identified with minimum diameter as described above. Dimensions that may be helpful for TAVR as described above. Calcific atherosclerosis is seen in the pelvic arteries though no obvious obstructive lesion is identified. 2. Patient is post coronary artery bypass surgery where in total three bypass grafts are seen to the left coronary territory. 3. Other findings as described above. Moderate to large right hydronephrosis, with a stone identified at the juncture of the proximal/mid right ureter, also there is another stone identified at the juncture of the ureter/bladder. 4. An addendum will be dictated by the Chief Diversity Officer Radiologist regarding the nonvascular findings. Signed: Basilio Treadwell MD Report Verified Date/Time: 08/02/2017 15:10:05 Reading Location: [place] [address] Cardiology MRI -Creatinine (08/02/2017 12:27 PM) Component Value Ref Range POC-Creatinine 0.9Comment: TESTED AT [address] 0.6 - 1.3 mg/dL [address] POC-EGFR 82 mL/min/1.73M2 Specimen Performing Laboratory Blood [address] [address] PULMONARY FUNCTION - SCAN (08/02/2017 11:24 AM)after 02/09/2017 Advance Directives Patient has advance directives. For more information, please contact:[address] [phone]
--- OUTSIDE RECORDS SUMMARY | 2018-02-10 23:31 | XMS REPORT | Continuity of Care Document ---
:1940 Author Organization Interface Problems Problem Status Onset Classification Date Comments Source Date Reported AAA Active [address] Final: 03/06/2017 [facility] Abdominal [facility] aortic Center aneurysm, without rupture AAA (<span Active Problem 05/24/2017 [place] ID="[id number] Medical 03">Confirmed< [place], /span>) Medical Group Aortic Active Problem 05/24/2017 [facility] stenosis [facility], [facility] BPH (<span Active Problem 05/24/2017 [place] ID="[id number] Medical 75">Confirmed< [place], /span>) 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% [facility] stenosis<sup>1 Medical </sup> [place], [facility] COPD (<span Active Problem 05/24/2017 [place] ID="[id number] Medical 49">Confirmed< Center, /span>) Medical Group Voiding Active Problem 05/24/2017 [facility], [facility] History of Resolved Problem 05/24/2017 [facility] TIAs<sup>2</fonseca Medical p> [place], [facility] HLD (<span Active Problem 05/24/2017 [place] ID="[id number] Medical 77">Confirmed< Center, /span>) Medical Group HTN (<span Active Problem 05/24/2017 [place] ID="[id number] Medical 43">Confirmed< Center, /span>) Medical Group CA of skin Resolved Problem 05/24/2017 [facility], [facility] Poor urinary Active Problem 05/24/2017 [facility] stream [facility] Urinary Active Problem 05/24/2017 [facility] retention [facility] Simple obesity Active Problem 05/24/2017 Medical Group Bladder stone Active Problem 05/24/2017 [facility], [facility] ABDOMINAL Active [facility] AORTIC Medical ANEURYSM, Center WITHOUT RUPTU Medications Medication Details Route Status Patient Ordering Order Source Instructions Provider Date tamsulosin 0.4 0.8 mg=2 cap, Active [place] mg oral capsule PO, After 2017 Medical Breakfast, # 20 Center cap, 0 Refill(s) Docusate Sodium 100 mg=1 cap, Active [place] 100 MG Oral PO, BID, PRN 2017 Medical Capsule Constipation, # Center 20 cap, 0 Refill(s) senna 8.6 mg 17.2 mg=2 tab, Active [place] oral tablet PO, QNoon, X 10 2016 Medical day, # 20 tab, Center 0 Refill(s) nebivolol 2.5 MG 2.5 mg=1 tab, Active [place] Oral Tablet PO, Daily, # 30 2017 Medical [Bystolic] tab, 1 Center Refill(s) aspirin 81 mg 81 mg=1 tab, Active [place] tablet, enteric PO, Daily, # 2017 Medical coated 100 tab, 0 Center Refill(s) Acetaminophen 2 tab, PO, Q4H, Active [place] 300 MG / Codeine PRN Pain Score 2017 Medical Phosphate 30 MG 4-6, X 10 day, Center Oral Tablet # 120 tab, 0 [Tylenol with Refill(s) Codeine #3] Miralax 17 gm, 1 pkt, No Longer [place] Route: PO, Drug Active 2016 Medical form: PWDR, Center Daily, Dosing Weight 86.591, kg, Start date: 03/02/17 9:00:00 CDT, Duration: 30 day, Stop date: 03/31/17 9:00:00 CDTNotes: Dissolve in 8 oz of water or juice. (Same as: Miralax) Acetaminophen 2 tab, Route: No Longer [place] 300 MG / Codeine PO, Drug Form: Active 2017 Medical Phosphate 30 MG TAB, Dosing Center Oral Tablet Weight 86.591, [Tylenol with kg, Q4H, PRN Codeine #3] Pain Score 4-6, Start date: 03/02/17 7:47:00 CDT, Duration: 30 day, Stop date: 04/01/17 7:46:00 CDTNotes: Do not exceed 4gm/day of acetaminophen. (Same as: Tylenol with Codeine # 3) Calcium 3 gm, 30 mL, No Longer [place] Gluconate Route: IVPB, Active 2016 Medical PRN, Dosing Center Weight 86.591, kg, PRN Abnormal Lab Result, For NON-ICU Patients Only., Start date: 03/01/17 10:33:00 CDT, Duration: 30 day, Stop date: 03/31/17 10:32:00 CDTNotes: WASTE: F/P - Sink; E - Municipal Trash Bin Magnesium Oxide 800 mg, 2 tab, No Longer [place] Route: PO, Drug Active 2016 Medical form: TAB, PRN, Center Dosing Weight 86.591, kg, PRN Abnormal Lab Result, For NON-ICU Patients Only., Start date: 03/01/17 10:33:00 CDT, Duration: 30 day, Stop date: 03/31/17 10:32:00 CDTNotes: (Same as: Mag-Ox 400) Magnesium oxide [id number] elemental magnesium Dose=____mg magnesium oxide (___mg elemental magnesium) Magnesium 1 gm, 100 mL, No Longer [place] Sulfate Route: IVPB, Active 2016 Medical Drug form: INJ, Center PRN, Dosing Weight 86.591, kg, PRN Abnormal Lab Result, For NON-ICU Patients Only., Start date: 03/01/17 10:33:00 CDT, Duration: 30 day, Stop date: 03/31/17 10:32:00 CDTNotes: WASTE: F/P - Sink; E - Municipal Trash Bin sodium phosphate 30 mmol, 10 mL, No Longer [place] Route: IVPB, Active 2016 Medical PRN, Dosing Center Weight 86.591, kg, PRN Abnormal Lab Result, For NON-ICU Patients Only., Start date: 03/01/17 10:33:00 CDT, Duration: 30 day, Stop date: 03/31/17 10:32:00 CDT potassium 30 mmol, 10 mL, No Longer [place] phosphate Route: IVPB, Active 2016 Medical PRN, Dosing Center Weight 86.591, kg, PRN Abnormal Lab Result, For NON-ICU Patients Only., Start date: 03/01/17 10:33:00 CDT, Duration: 30 day, Stop date: 03/31/17 10:32:00 CDTNotes: (Same as: K Phosphate.) 1 mMol phoshate has 1.47 mEq potassium Infuse over 4 hours Potassium 20 mEq, 15 mL, No Longer [place] Chloride Route: NJ, Drug Active 2016 Medical form: LIQ, PRN, Center Dosing Weight 86.591, kg, PRN Abnormal Lab Result, For NON-ICU Patients Only, Start date: 03/01/17 10:33:00 CDT, Duration: 30 day, Stop date: 03/31/17 10:32:00 CDTNotes: (Same as: Potassium Chloride) potassium 2 pkt, Route: No Longer [place] phosphate-sodium PO, Drug Form: Active 2017 Medical phosphate 250 PDR/REC, Dosing Center mg-280 mg-160 mg Weight 86.591, oral powder for kg, PRN, PRN reconstitution Abnormal Lab Result, For NON-ICU Patients Only, Start date: 03/01/17 10:33:00 CDT, Duration: 30 day, Stop date: 03/31/17 10:32:00 CDTNotes: (Same as: Phos-NaK) Each 1.5 gm pkt has 250mg phosphorous. Mix w/2.5oz water and stir. Melatonin 3 MG 3 mg, 1 tab, No Longer [place] Extended Release Route: PO, Drug Active 2016 Medical Tablet Form: TAB, Center Dosing Weight 86.591, kg, Bedtime, PRN as needed for insomnia, Start date: 03/01/17 10:16:00 CDT, Duration: 30 day, Stop date: 03/31/17 10:15:00 CDTNotes: (Same as: Melatonin) nebivolol 2.5 mg, 1 tab, No Longer [facility] Route: PO, Drug Active 2016 Medical form: TAB, Center Daily, Dosing Weight 86.591, kg, Start date: 03/01/17 9:00:00 CDT, Duration: 30 day, Stop date: 03/30/17 9:00:00 CDTNotes: Same as: Bystolic senna 8.6 mg 8.6 mg, 1 tab, No Longer [place] oral tablet Route: PO, Drug Active 2016 Medical Form: TAB, Center Dosing Weight 86.591, kg, QNoon, Start date: 02/28/17 12:00:00 CDT, Duration: 30 day, Stop date: 03/29/17 12:00:00 CDTNotes: (Same as: Senotto) Flomax 0.8 mg, 2 cap, No Longer [facility] Route: PO, Drug Active 2016 Medical form: CAP, Center After Breakfast, Dosing Weight 86.591, kg, Priority: NOW, Start date: 02/28/17 10:07:00 CDT, Duration: 30 day, Stop date: 03/30/17 8:30:00 CDTNotes: (Same As: Flomax) "Do Not Crush" Glucagon 1 mg, Route: No Longer [facility] IM, Drug form: Active 2017 Medical PDR/INJ, PRN, Center Dosing Weight 86.591, kg, PRN Blood Glucose Results, Start date: 02/28/17 10:04:00 CDT, Duration: 30 day, Stop date: 03/30/17 10:03:00 CDT Dextrose 50% 25 gm, 50 mL, No Longer [facility] Syringe Route: IVP, Active 2016 Medical Drug Form: INJ, Center Dosing Weight 86.591, kg, PRN, PRN Blood Glucose Results, Start date: 02/28/17 10:04:00 CDT, Duration: 30 day, Stop date: 03/30/17 10:03:00 CDT Insulin Lispro 6 unit, 0.06 No Longer [facility] mL, Route: Active 2017 Medical SUB-Q, Drug Center form: SOLN, Sliding Scale, Dosing Weight 86.591, kg, PRN Blood Glucose Results, Start date: 02/28/17 10:04:00 CDT, Duration: 30 day, Stop date: 03/30/17 10:03:00 CDTNotes: (Same as: Humalog ) Roll in palms of hands gently; Do not shake `vigorously. "Single Patient Use Only " (Restricted to patients requiring a dose > 60 units) WASTE: F/P - Black; E - Municipal Trash Bin Stable for 28 days at room temperature. Expires in days from D ate Simethicone 80 mg, 1 tab, No Longer [place] Route: CHEW, Active 2016 Medical Drug form: Center CHEWTAB, Q6H, Dosing Weight 86.591, kg, Priority: NOW, Start date: 02/28/17 10:03:00 CDT, Duration: 30 day, Stop date: 03/30/17 6:00:00 CDTNotes: (Same as: Walter) Reglan 10 mg, 2 mL, No Longer [place] Route: IVP, Active 2016 Medical Drug form: INJ, Center Q6Hnow, Dosing Weight 86.591, kg, Priority: NOW, Start date: 02/28/17 10:03:00 CDT, Duration: 3 day, Stop date: 03/03/17 4:03:00 CDTNotes: (Same as: Reglan) D5W 1/2NS 1,000 1,000 mL, Rate: No Longer [place] mL 75 ml/hr, Active 2016 Medical Infuse over: [place] 13.3 hr, Route: IV, Dosing Weight 86.591 kg, Total Volume: 1,000, Start date: 02/28/17 10:00:00 CDT, Duration: 30 day, Stop date: 03/30/17 9:59:00 CDT aspirin 81 mg 81 mg, 1 tab, Inactive [place] tablet, enteric Route: PO, Drug 2016 [facility], Dosing Weight 86.591, kg, Start date: 02/27/17 17:00:00 CDT, Duration: 30 day, Stop date: 03/29/17 9:00:00 CDT heparin sodium, 5,000 unit, 1 No Longer [place] porcine 2500 mL, Route: Active 2017 Medical UNT/ML SUB-Q, Drug Center Injectable form: INJ, Q8H, Solution Dosing Weight 86.591, kg, Start date: 02/27/17 16:00:00 CDT, Duration: 30 day, Stop date: 03/29/17 8:00:00 CDTNotes: porcine heparin aspirin 81 mg 81 mg, 1 tab, No Longer [place] tablet, enteric Route: PO, Drug Active 2017 Medical coated form: ECTAB, Center Daily, Dosing Weight 86.591, kg, Start date: 02/27/17 13:00:00 CDT, Duration: 30 day, Stop date: 03/29/17 9:00:00 CDTNotes: Do not crush or chew. (Same As: Ecotrin) pantoprazole 40 mg, Route: No Longer [facility] IVP, Drug form: Active 2016 Medical INJ, Daily, Center Dosing Weight 86.591, kg, Start date: 02/27/17 9:00:00 CDT, Duration: 30 day, Stop date: 03/28/17 9:00:00 CDT chlorhexidine 1 appl, Route: Inactive [place] gluconate 40 BATHE, Q-M--, 2017 Medical MG/ML Medicated Drug form: [place] Liquid Soap SOAP, Start date: 02/27/17 9:00:00 CDT, Duration: 30 day, Stop date: 03/27/17 9:00:00 CDTNotes: (Same As: Hibiclens) influenza virus 0.5 mL, Route: Inactive [place] vaccine, IM, Drug Form: 2017 Medical inactivated SUSP, Daily, Center Start date: 02/27/17 9:00:00 CDT, Duration: 1 doses or times, Stop date: 02/27/17 9:00:00 CDTNotes: (Same as: Fluzone Quadrivalent, Fluarix Quadrivalent) For 3 years of age and older (0.5 mL IM) Shake well before use Docusate Sodium 100 mg, 1 cap, No Longer [place] 100 MG Oral Route: PO, Drug Active 2016 Medical Capsule [Colace] form: CAP, BID, Center Dosing Weight 86.591, kg, Start date: 02/27/17 9:00:00 CDT, Duration: 30 day, Stop date: 03/28/17 17:00:00 CDTNotes: (Same as: Colace) (Do Not Crush) Zofran 4 mg, 2 mL, No Longer [place] Route: IVP, Active 2016 Medical Drug form: INJ, Center Q8H, Dosing Weight 86.591, kg, PRN Nausea, Start date: 02/27/17 7:43:00 CDT, Duration: 30 day, Stop date: 03/29/17 7:42:00 CDTNotes: (Same as: Thanh) MEDICATION WASTE Product Size: 4 mg Product Wasted: ___ mg Dilaudid 0.2 mg, 0.1 mL, No Longer [place] Route: IVP, Active 2016 Medical Drug form: INJ, Center Q3H, Dosing Weight 86.591, kg, PRN Pain Score 7-10, Start date: 02/27/17 7:42:00 CDT, Duration: 30 day, Stop date: 03/29/17 7:41:00 CDTNotes: Same as: Dilaudid Acetaminophen 10 1,000 mg, Inactive [place] MG/ML Injectable Route: IV, Drug 2016 Medical Solution form: INJ, Q6H, Center Dosing Weight 86.591, kg, For > or=50 kg, Priority: NOW, Start date: 02/27/17 5:45:00 CDT, Duration: 30 day, Stop date: 03/29/17 0:00:00 CDT Morphine 2 mg, 0.5 mL, No Longer [place] Route: IVP, Active 2016 Medical Drug form: INJ, Center Q2H, Dosing Weight 86.591, kg, PRN Pain Score 7-10, Start date: 02/27/17 4:35:00 CDT, Duration: 30 day, Stop date: 03/29/17 4:34:00 CDTNotes: (Same as:MORPhine Sulfate) chlorhexidine 15 mL, Route: No Longer [place] gluconate 1.2 Swab Mouth, Active 2016 Medical MG/ML Mouthwash Q12H, Drug Center form: LIQ, Start date: 02/26/17 21:00:00 CDT, Duration: 30 day, Stop date: 03/28/17 9:00:00 CDTNotes: (Same As: Peridex) Miralax 17 gm, 1 pkt, No Longer [place] Route: PO, Drug Active 2016 Medical form: PWDR, Center Daily, Dosing Weight 86.591, kg, PRN Constipation, Start date: 02/26/17 20:40:00 CDT, Duration: 30 day, Stop date: 03/28/17 20:39:00 CDTNotes: Dissolve in 8 oz of water or juice. (Same as: Miralax) Simethicone 80 mg, 1.2 mL, No Longer [place] Route: PO, Drug Active 2016 Medical form: DROP, Center Q6H, Dosing Weight 86.591, kg, PRN Gas, Start date: 02/26/17 20:40:00 CDT, Duration: 30 day, Stop date: 03/28/17 20:39:00 CDTNotes: (Same as: Mylicon, Phazyme, Genasyme) Metoprolol 5 mg, 5 mL, Inactive [place] Route: IV, Drug 2016 Medical form: INJ, Center ONCE, Dosing Weight 86.591, kg, Priority: NOW, Start date: 02/26/17 20:03:00 CDT, Stop date: 02/26/17 20:03:00 CDTNotes: (Same as: Lopressor) Push over 2 minutes Cefazolin 2 gm, 100 mL, No Longer [facility] Route: IVPB, Active 2016 Medical Drug form: INJ, Center Q8H, Dosing Weight 86.591, kg, Start date: 02/26/17 16:00:00 CDT, Duration: 3 doses or times, Stop date: 02/27/17 8:00:00 CDT, ABX Indication: Surgical ProphylaxisNote s: Same as: Ancef NS (Bolus) IV 1,000 mL, 1,000 Inactive [facility] ml/hr, Infuse 2016 Medical Over: 1 hr, Center Route: IV, 1,000, Drug form: INJ, ONCE, Priority: STAT, Dosing Weight 86.591 kg, Start date: 02/26/17 15:24:00 CDT, Duration: 1 doses or times, Stop date: 02/26/17 15:24:00 CDT Fentanyl 25 microgram, Inactive [place] Route: IVP, 2017 Medical Drug form: INJ, Center ONCE, Dosing Weight 86.591, kg, Start date: 02/26/17 14:59:00 CDT, Stop date: 02/26/17 14:59:00 CDT sodium chloride 1,000 mL, Rate: No Longer [place] 0.45% 1000 ml 100 ml/hr, Active 2016 Medical INJ 1,000 mL Infuse over: 10 Center hr, Route: IV, Dosing Weight 86.591 kg, Total Volume: 1,000, Start date: 02/26/17 14:24:00 CDT, Duration: 30 day, Stop date: 03/28/17 14:23:00 CDT pantoprazole 40 mg, Route: No Longer [place] IVP, Drug form: Active 2017 Medical INJ, Daily, Center Dosing Weight 86.591, kg, Start date: 02/26/17 13:00:00 CDT, Duration: 30 day, Stop date: 03/28/17 9:00:00 CDTNotes: For IV push reconstitute with 10 ml 0.9% sodium chloride and push over 2 minutes. (Same as: Protonix) Calcium 500 mg, 1 tab, No Longer [place] Carbonate 500 MG Route: PO, Drug Active 2016 Medical Chewable Tablet form: CHEWTAB, Center PRN, Dosing Weight 86.591, kg, PRN Abnormal Lab Result, FOR ICU USE ONLY, Start date: 02/26/17 12:40:00 CDT, Duration: 30 day, Stop date: 03/28/17 12:39:00 CDTNotes: (Same As: Tums) Calcium Carbonate 500 th=411 mg elemental calcium Dose= mg calcium carbonate ( mg elemental calcium) Magnesium Oxide 800 mg, 2 tab, No Longer [place] Route: PO, Drug Active 2016 Medical form: TAB, PRN, Center Dosing Weight 86.591, kg, PRN Abnormal Lab Result, FOR ICU USE ONLY, Start date: 02/26/17 12:40:00 CDT, Duration: 30 day, Stop date: 03/28/17 12:39:00 CDTNotes: (Same as: Mag-Ox 400) Magnesium oxide [id number] elemental magnesium Dose=____mg magnesium oxide (___mg elemental magnesium) Magnesium 2 gm, 50 mL, No Longer [place] Sulfate Route: IVPB, Active 2016 Medical Drug form: INJ, Center PRN, Dosing Weight 86.591, kg, PRN Abnormal Lab Result, Start date: 02/26/17 12:40:00 CDT, Duration: 30 day, Stop date: 03/28/17 12:39:00 CDT, FOR ICU USE ONLYNotes: WASTE: F/P - Sink; E - Municipal Trash Bin Calcium 1 gm, 10 mL, No Longer [place] Gluconate Route: IVPB, Active 2016 Medical PRN, Dosing Center Weight 86.591, kg, PRN Abnormal Lab Result, Start date: 02/26/17 12:40:00 CDT, Duration: 30 day, Stop date: 03/28/17 12:39:00 CDT, FOR ICU USE ONLYNotes: WASTE: F/P - Sink; E - Municipal Trash Bin sodium phosphate 45 mmol, 15 mL, No Longer [place] Route: IVPB, Active 2016 Medical PRN, Dosing Center Weight 86.591, kg, PRN Abnormal Lab Result, Start date: 02/26/17 12:40:00 CDT, Duration: 30 day, Stop date: 03/28/17 12:39:00 CDT, FOR ICU USE ONLY potassium 30 mmol, 10 mL, No Longer [place] phosphate Route: IVPB, Active 2016 Medical PRN, Dosing Center Weight 86.591, kg, PRN Abnormal Lab Result, Start date: 02/26/17 12:40:00 CDT, Duration: 30 day, Stop date: 03/28/17 12:39:00 CDT, FOR ICU USE ONLYNotes: (Same as: K Phosphate.) 1 mMol phoshate has 1.47 mEq potassium Infuse over 4 hours potassium 2 pkt, Route: No Longer [place] phosphate-sodium PO, Drug Form: Active 2017 Medical phosphate 250 PDR/REC, Dosing Center mg-280 mg-160 mg Weight 86.591, oral powder for kg, PRN, PRN reconstitution Abnormal Lab Result, FOR ICU USE ONLY, Start date: 02/26/17 12:40:00 CDT, Duration: 30 day, Stop date: 03/28/17 12:39:00 CDTNotes: (Same as: Phos-NaK) Each 1.5 gm pkt has 250mg phosphorous. Mix w/2.5oz water and stir. Potassium 10 mEq, 50 mL, No Longer [place] Chloride Route: IVPB, Active 2016 Medical Drug form: INJ, Center PRN, Dosing Weight 86.591, kg, PRN Abnormal Lab Result, Via peripheral line, Start date: 02/26/17 12:40:00 CDT, Duration: 30 day, Stop date: 03/28/17 12:39:00 CDT, FOR ICU USE ONLYNotes: (Same as: KCL) Infuse over 2 hours. Dextrose 50% 25 gm, 50 mL, No Longer [place] Syringe Route: IVP, Active 2016 Medical Drug Form: INJ, Center Dosing Weight 86.591, kg, PRN, PRN Blood Glucose Results, Start date: 02/26/17 12:13:00 CDT, Duration: 30 day, Stop date: 03/28/17 12:12:00 CDT Insulin regular 99 mL, Rate: No Longer [place] 100 unit + Start Insulin Active 2016 Medical Drip Per ICU Center Protocol, Dosing Weight 86.591, kg, Route: IVPB, Total Volume: 100, Start Date: 02/26/17 12:13:00 CDT, Duration: 30 day, Stop date: 03/28/17 12:12:00 CDT, Replace Every: 24 hrNotes: Final Concentration 1unit/1ml WASTE: F/P - Black; E - Municipal Trash Bin chlorhexidine 15 mL, Route: No Longer [place] gluconate 1.2 Swab Mouth, Active 2016 Medical MG/ML Mouthwash PRN, Drug form: Center LIQ, PRN Other -See Comment, Start date: 02/26/17 12:09:00 CDT, Duration: 30 day, Stop date: 03/28/17 12:08:00 CDTNotes: (Same As: Peridex) Nitroglycerin 0.4 mg, 1 tab, No Longer [place] Route: SL, Drug Active 2016 Medical form: TAB, Center Q5Min, Dosing Weight 86.591, kg, PRN Chest Pain, Start date: 02/26/17 12:09:00 CDT, Duration: 30 day, Stop date: 03/28/17 12:08:00 CDTNotes: (Same as:Nitroquick, Nitrostat) "Do Not Crush" Sublingual tablet Docusate 100 mg, 1 cap, No Longer [place] Route: PO, Drug Active 2016 Medical form: CAP, BID, Center Dosing Weight 86.591, kg, PRN Constipation, Start date: 02/26/17 12:09:00 CDT, Duration: 30 day, Stop date: 03/28/17 12:08:00 CDTNotes: (Same as: Colace) (Do Not Crush) Acetaminophen 1 tab, Route: No Longer [place] 325 MG / PO, Drug Form: Active 2016 Medical Hydrocodone TAB, Dosing Center Bitartrate 5 MG Weight 86.591, Oral Tablet kg, Q4H, PRN Pain Score 1-3, Start date: 02/26/17 12:09:00 CDT, Duration: 30 day, Stop date: 03/28/17 12:08:00 CDTNotes: (Same as: [place] 325/5) Do not exceed 4gm/day of acetaminophen. Nicardipine 40 mg, 200 mL, No Longer [place] Rate: Titrate, Active 2016 Medical Start Dose: 5 Center mg/hr, Titration: 2.5 mg/hr every 15 minutes, Goal(s): SBP Notes: Same as: Cardene Concentration: (0.2 mg /1 ml ) tranexamic acid Route: IV, Drug Inactive [place] (ANES) form: INJ, 2016 Medical ONCE, Stop Center date: 02/26/17 10:31:00 CDT glycopyrrolate Route: IV, Drug Inactive [place] (ANES) form: INJ, 2016 Medical ONCE, Stop Center date: 02/26/17 9:51:00 CDT protamine (ANES) Route: IV, Drug Inactive [place] form: INJ, 2016 Medical ONCE, Stop Center date: 02/26/17 9:41:00 CDT calcium Route: IV, Drug Inactive [place] gluconate (ANES) form: INJ, 2016 Medical ONCE, Stop Center date: 02/26/17 9:16:00 CDT midazolam (ANES) Route: IV, Drug Inactive [place] form: SOLN, 2016 Medical ONCE, Stop Center date: 02/26/17 9:16:00 CDT sodium Route: IV, Drug Inactive [facility] bicarbonate form: INJ, 2016 Medical (ANES) ONCE, Stop Center date: 02/26/17 9:06:00 CDT heparin (ANES) Route: IV, Drug Inactive [facility] form: INJ, 2016 Medical ONCE, Stop Center date: 02/26/17 8:56:00 CDT lidocaine (ANES) Route: IV, Drug Inactive [facility] form: INJ, 2016 Medical ONCE, Stop Center date: 02/26/17 8:46:00 CDT rocuronium Route: IV, Drug Inactive [facility] (ANES) form: INJ, 2016 Medical ONCE, Stop Center date: 02/26/17 8:46:00 CDT fentaNYL (ANES) Route: IV, Drug Inactive [facility] form: INJ, 2016 Medical ONCE, Stop Center date: 02/26/17 8:46:00 CDT propofol (ANES) Route: IV, Drug Inactive [facility] form: INJ, 2016 Medical ONCE, Stop Center date: 02/26/17 8:46:00 CDT ceFAZolin (ANES) Route: IV, Drug Inactive [facility] form: INJ, 2016 Medical ONCE, Stop Center date: 02/26/17 8:36:00 CDT vancomycin Route: IV, Drug Inactive [facility] (ANES) (ANES) form: INJ, 2016 Medical Start date: Center 02/26/17 7:59:00 CDT, Stop date: 02/26/17 8:59:00 CDT sodium chloride Route: IV, Inactive [facility] 0.9% 1000 ml INJ Total Volume: 2016 Medical (ANES) 1,000, Start Center date: 02/26/17 7:44:00 CDT, Stop date: 02/26/17 8:44:00 CDT Isolyte S (PH Route: IV, Inactive [facility] 7.4) 1000 mL Total Volume: 2016 Medical (ANES) 1,000, Start Center date: 02/26/17 7:30:00 CDT, Stop date: 02/26/17 8:30:00 CDT nebivolol 2.5 MG 2.5 mg=1 tab, No Longer [facility] Oral Tablet PO, Daily, 0 Active 2016 Medical [facility] Refill(s) Center "Can't remember "Can't remember Active [facility] the name" the name", 2.5 2016 Medical mg=, PO, Daily [place] aspirin 81 mg 81 mg=1 tab, No Longer [facility] tablet, enteric PO, BID Active 2016 [facility] Zyrtec PO, Daily Active [address] Allergies, Adverse Reactions, Alerts Substance Category Reaction Severity Reaction Status Date Comments Source type Reported NKDA Assertion Drug Active allergy Medical Group Immunizations Immunization Date Given Site Status Last Updated Comments Source Results Order Name Results Value Reference Date Interpretation Comments Source Range PARATHYROID Ca Ion WB 1.03 1.05 - 03/03 [facility] PROFILE mMol/L 1. [facility] PARATHYROID Ca Norm WB 1.07 1.05 - 03/03 [facility] PROFILE mMol/L 1. [facility] CHEM PANEL Creatinine 0.76 mg/dL 0.50 - 03/03 [facility] Lvl 1.40 [facility] CHEM PANEL BUN 14 mg/dL 7 - 22 03/03 [facility]2016 [facility] CHEM PANEL Glucose Lvl 103 mg/dL 70 - 99 03/03 [facility] CHEM PANEL AGAP 13.8 meq/L 10.0 - 03/03 [facility] 20.0 [facility] CHEM PANEL Calcium Lvl 6.7 mg/dL 8.5 - 10.5 03/03 Result Comment: [facility] Result(s) called to Christiano Andrews at 03/03/2017 06:55 byJw. Read back OK. CHEM PANEL Potassium Lvl 3.8 meq/L 3.5 - 5.1 03/03 [facility] CHEM PANEL Sodium Lvl 138 meq/L 135 - 145 03/03 [facility] CHEM PANEL CO2 23 meq/L 24 - 32 03/03 [facility]2016 [facility] CHEM PANEL Chloride Lvl 105 meq/L 95 - 109 03/03 [facility]2016 [facility] CHEM PANEL eGFR 89 03/03 Result Comment: The eGFR is calculated using the CKD-EPI formula. In most young, healthy individuals the eGFR will be >90 mL/ min/1.73m2. The eGFR declines with age. An eGFR of 60-89 may be normal in [facility] mL/min/1. some populations, particularly the elderly, for whom the CKD-EPI formula has not been extensively validated. Use of the eGFR is not recommended in the following populations: [address] Individuals with unstable creatinine concentrations, including patients and those with serious co-morbid conditions. Patients with extremes in muscle mass or diet. The data above are obtained from the National Kidney Disease Education Program (NKDEP) which additionally recommends that when the eGFR is used in patients with extremes of body mass index for purposes of drug dosing, the eGFR should be multiplied by the estimated BMI. CHEM PANEL Phosphorus 1.9 mg/dL 2.5 - 4.5 03/[address] [place] [address] CHEM PANEL Magnesium Lvl 2.6 mg/dL 1.8 - 2.4 03/[address] HEMATOLOGY Lymphocytes 13.1 % 20.0 - 03/03 40.0 [facility] HEMATOLOGY Segs 66.5 % 45.0 - 03/03 [place] 75.0 [facility] HEMATOLOGY Eosinophils # 0.3 K/CMM 0.0 - 0.5 03/[address] [place] [address] HEMATOLOGY Eosinophils 3.6 % 0.0 - 4.0 03/[address] [place] [address] HEMATOLOGY Monocytes 16.3 % 2.0 - 12.0 03/[address] HEMATOLOGY Basophils 0.5 % 0.0 - 1.0 03/[address] [place] [address] HEMATOLOGY Monocytes # 1.2 K/CMM 0.0 - 0.8 03/[address] [place] [address] HEMATOLOGY Lymphocytes # 1.0 K/CMM 1.0 - 5.5 03/[address] [place] [address] HEMATOLOGY Segs-Bands # 4.9 K/CMM 1.5 - 8.1 03/[address] [place] [address] HEMATOLOGY MCH 32.0 pg 27.0 - 03/03 31.0 [facility] HEMATOLOGY MCHC 34.0 g/dL 32.0 - 03/03 [place] 36.0 [facility] HEMATOLOGY MCV 94.0 fL 80.0 - 03/03 [place] 94.0 [facility] HEMATOLOGY MPV 9.1 fL 7.4 - 10.4 03/03 [facility] HEMATOLOGY Platelet 138 K/CMM 133 - 450 03/03 [facility] HEMATOLOGY RDW 14.7 % 11.5 - 03/03 [facility] 14.5 [facility] HEMATOLOGY Hgb 9.2 g/dL 14.0 - 03/03 [facility] 18.0 [facility] HEMATOLOGY Hct 26.9 % 42.0 - 03/03 [facility] 54.0 [facility] HEMATOLOGY WBC 7.3 K/CMM 3.7 - 10.4 03/03 [facility] HEMATOLOGY RBC 2.86 M/CMM 4.70 - 03/03 [place] 6.10 [facility] Chest 1view Chest 1view EXAM: XR CHEST 1 VIEW 03/03 - [facility] DX DX - [facility] DATE: 03/03/2017 3:00 AM CDT Read by: Tom Lion MD Dictated Date/time: 03/03/17 16:51 Electronically Signed by: Tom Lion MD 03/03/17 16:51 FINAL REPORT INDICATION: Coughing - dyspnea TECHNIQUE: AP chest IMPRESSION: Mild to moderate interstitial edema, not significantly changed since yesterday. No pneumothorax given the limitation of a semiupright exam. CHEM PANEL Magnesium Lvl 2.7 mg/dL 1.8 - 2.4 03/02 [facility] CHEM PANEL Phosphorus 1.8 mg/dL 2.5 - 4.5 03/[address] CHEM PANEL eGFR 85 03/02 Result Comment: The eGFR is calculated using the CKD-EPI formula. In most young, healthy individuals the eGFR will be >90 mL/ min/1.73m2. The eGFR declines with age. An eGFR of 60-89 may be normal in [facility] mL/min/1.7 some populations, particularly the elderly, for whom the CKD-EPI formula has not been extensively validated. Use of the eGFR is not recommended in the following populations: [address] Individuals with unstable creatinine concentrations, including patients and those with serious co-morbid conditions. Patients with extremes in muscle mass or diet. The data above are obtained from the National Kidney Disease Education Program (NKDEP) which additionally recommends that when the eGFR is used in patients with extremes of body mass index for purposes of drug dosing, the eGFR should be multiplied by the estimated BMI. CHEM PANEL CO2 28 meq/L 24 - 32 03/[address] [place] [address] CHEM PANEL Calcium Lvl 8.0 mg/dL 8.5 - 10.5 03/[address] CHEM PANEL Chloride Lvl 104 meq/L 95 - 109 03/[address] CHEM PANEL Potassium Lvl 4.1 meq/L 3.5 - 5.1 03/[address] CHEM PANEL Sodium Lvl 139 meq/L 135 - 145 03/[address] CHEM PANEL BUN 16 mg/dL 7 - 22 03/[address] CHEM PANEL Creatinine 0.83 mg/dL 0.50 - 03/02 [facility] Lvl 1.40 [facility] CHEM PANEL Glucose Lvl 115 mg/dL 70 - 99 03/[address] CHEM PANEL AGAP 11.1 meq/L 10.0 - 03/02 [facility] 20.0 [facility] HEMATOLOGY Segs-Bands # 5.2 K/CMM 1.5 - 8.1 03/[address] [place] [address] HEMATOLOGY Monocytes 16.1 % 2.0 - 12.0 03/[address] HEMATOLOGY Basophils 0.3 % 0.0 - 1.0 03/[address] HEMATOLOGY Eosinophils 3.5 % 0.0 - 4.0 03/[address] HEMATOLOGY Lymphocytes 9.2 % 20.0 - 03/02 [place] 40.0 [facility] HEMATOLOGY Segs 70.9 % 45.0 - 03/02 [place] 75.0 [facility] HEMATOLOGY Eosinophils # 0.3 K/CMM 0.0 - 0.5 03/[address] HEMATOLOGY Lymphocytes # 0.7 K/CMM 1.0 - 5.5 03/[address] HEMATOLOGY Monocytes # 1.2 K/CMM 0.0 - 0.8 03/[address] HEMATOLOGY MCHC 35.0 g/dL 32.0 - 03/02 [facility] 36.0 [facility] HEMATOLOGY RDW 14.9 % 11.5 - 03/02 [facility] 14.5 [facility] HEMATOLOGY Platelet 110 K/CMM 133 - 450 03/02 [place] /2017 [facility] HEMATOLOGY MPV 9.4 fL 7.4 - 10.4 03/02 [facility] HEMATOLOGY RBC 2.82 M/CMM 4.70 - 03/02 6.10 [facility] HEMATOLOGY WBC 7.4 K/CMM 3.7 - 10.4 03/02 [facility] HEMATOLOGY MCH 32.2 pg 27.0 - 03/02 31.0 [facility] HEMATOLOGY MCV 92.2 fL 80.0 - 03/02 [place] 94.0 [facility] HEMATOLOGY Hct 26.0 % 42.0 - 03/02 54.0 [facility] HEMATOLOGY Hgb 9.1 g/dL 14.0 - 03/02 18.0 [facility] HEMATOLOGY INR 1.29 0.85 - 03/01 1.17 [facility] HEMATOLOGY PTT 37.7 s 22.9 - 03/01 [facility] 35.8 [facility] HEMATOLOGY PT 16.3 s 12.0 - 03/01 [facility] 14.7 [facility] PARATHYROID Ca Norm WB 1.04 1.05 - 03/01 [facility] PROFILE mMol/L 1. [facility] PARATHYROID Ca Ion WB 1.06 1.05 - 03/01 [facility] PROFILE mMol/L 1. [facility] CHEM PANEL Phosphorus 2.1 mg/dL 2.5 - 4.5 03/01 [facility] CHEM PANEL Magnesium Lvl 2.1 mg/dL 1.8 - 2.4 03/01 [facility] CHEM PANEL eGFR 83 03/01 Result Comment: The eGFR is calculated using the CKD-EPI formula. In most young, healthy individuals the eGFR will be >90 mL/ min/1.73m2. The eGFR declines with age. An eGFR of 60-89 may be normal in [facility] mL/min/1 some populations, particularly the elderly, for whom the CKD-EPI formula has not been extensively validated. Use of the eGFR is not recommended in the following populations: [address] Individuals with unstable creatinine concentrations, including patients and those with serious co-morbid conditions. Patients with extremes in muscle mass or diet. The data above are obtained from the National Kidney Disease Education Program (NKDEP) which additionally recommends that when the eGFR is used in patients with extremes of body mass index for purposes of drug dosing, the eGFR should be multiplied by the estimated BMI. CHEM PANEL Glucose Lvl 131 mg/dL 70 - 99 03/[address] CHEM PANEL BUN 17 mg/dL 7 - 22 03/[address] CHEM PANEL Creatinine 0.88 mg/dL 0.50 - 03/01 [facility] Lvl 1.40 [facility] CHEM PANEL Calcium Lvl 7.4 mg/dL 8.5 - 10.5 03/[address] CHEM PANEL Chloride Lvl 103 meq/L 95 - 109 03/[address] CHEM PANEL Sodium Lvl 134 meq/L 135 - 145 03/[address] CHEM PANEL CO2 28 meq/L 24 - 32 03/[address] CHEM PANEL Potassium Lvl 4.1 meq/L 3.5 - 5.1 03/[address] CHEM PANEL AGAP 7.1 meq/L 10.0 - 03/01 [facility] 20. [facility] ELECTROLYTE Potassium Lvl 4.1 meq/L 3.5 - 5.1 03/01 [facility] S [facility] HEMATOLOGY Eosinophils # 0.2 K/CMM 0.0 - 0.5 03/[address] HEMATOLOGY Eosinophils 2.5 % 0.0 - 4.0 03/[address] HEMATOLOGY Basophils 0.5 % 0.0 - 1.0 03/[address] HEMATOLOGY Segs-Bands # 5.3 K/CMM 1.5 - 8.1 03/[address] HEMATOLOGY Lymphocytes # 0.9 K/CMM 1.0 - 5.5 03/[address] HEMATOLOGY Monocytes # 1.3 K/CMM 0.0 - 0.8 03/[address] HEMATOLOGY Segs 68.6 % 45.0 - 03/01 [facility] 75.0 [facility] HEMATOLOGY Lymphocytes 11.4 % 20.0 - 03/01 [facility] 40.0 [facility] HEMATOLOGY Monocytes 17.0 % 2.0 - 12.0 03/[address] HEMATOLOGY MCHC 35.2 g/dL 32.0 - 03/01 [facility] 36.0 [facility] HEMATOLOGY MPV 9.4 fL 7.4 - 10.4 03/01 [facility] HEMATOLOGY RDW 15.1 % 11.5 - 03/01 14.5 [facility] HEMATOLOGY Platelet 88 K/CMM 133 - 450 03/01 2016 [facility] HEMATOLOGY MCH 32.4 pg 27.0 - 03/01 [facility] 31.0 [facility] HEMATOLOGY Hct 24.7 % 42.0 - 03/01 54.0 [facility] HEMATOLOGY MCV 91.8 fL 80.0 - 03/01 [facility] 94.0 [facility] HEMATOLOGY WBC 7.8 K/CMM 3.7 - 10.4 03/01 [facility] HEMATOLOGY RBC 2.69 M/CMM 4.70 - 03/01 [facility] 6.10 [facility] HEMATOLOGY Hgb 8.7 g/dL 14.0 - 03/01 [facility] 18.0 [facility] Chest 1view Chest 1view EXAM: XR CHEST 1 VIEW 03/01 [facility] DATE: 03/02/2017 3:00 AM CDT Read by: Tom Lion MD Dictated Date/time: 03/02/17 09:00 Electronically Signed by: Tom Lion MD 03/02/17 09:00 FINAL REPORT INDICATION: Coughing - dyspnea TECHNIQUE: AP chest IMPRESSION: There is mild interstitial edema. Dependent changes in the lung bases. The cardiac silhouette is stable. No pneumothorax given the limitation of a semiupright exam. Chest 1view Chest 1view EXAM: XR CHEST 1 VIEW 03/01 - [facility] DATE: 03/01/2017 3:00 AM CDT Read by: Mónica Aggarwal MD Dictated Date/time: 03/01/17 08:37 Electronically Signed by: Mónica Aggarwal MD 03/01/17 14:02 FINAL REPORT INDICATION: Coughing - dyspnea. FINDINGS: Comparison is made to yesterday. The cardiomediastinal silhouette and postoperative changes are stable. The right jugular central venous catheter has been removed. A nasogastric tube remains in place. Platelike atelectasis is seen in the bilateral lower lobes. No pleural effusions are identified. IMPRESSION: Bilateral lower lobe platelike atelectasis. BLOOD BANK ABO/Rh A POS 02/28 [place] RESULTS /2016 [facility] BLOOD BANK Antibody Scrn Negative 02/28 [facility] RESULTS /2016 Medical (02/28/17 2:39 AM) [place] HEMATOLOGY INR 1.33 0.85 - 02/28 [place] 1.17 [facility] HEMATOLOGY PT 16.7 s 12.0 - 02/28 [place] 14.7 /2016 [facility] HEMATOLOGY PTT 34.3 s 22.9 - 02/28 [place] 35.8 /2016 [facility] PARATHYROID Ca Norm WB 1.10 1.05 - 02/28 [facility] PROFILE mMol/L 1. [facility] PARATHYROID Ca Ion WB 1.11 1.05 - 02/28 [facility] PROFILE mMol/L 1. [facility] Chest 1view Chest 1view EXAM: XR CHEST 1 VIEW 02/28 - [facility] DX DX /2016 - [facility] This report was dictated by a [employer]/Fellow. I have personally reviewed the images as Center well as the Resident's interpretation and agree with the findings. DATE: 02/28/2017 3:00 AM CDT Read by: Ricardo Gonzalez (Fellow) Resident: Ricardo Gonzalez (Fellow) Dictated Date/time: 02/28/17 08:36 Electronically Signed by: Stacie Cali MD 02/28/17 09:04 FINAL REPORT INDICATION: pleural effusion - pleural effusion COMPARISON: Chest radiograph 02/27/2017 TECHNIQUE: AP chest FINDINGS: Lines, tubes and hardware: The gastric tube and right IJ central line are stable in position. Lungs and pleura: Bilateral interstitial and airspace opacities are seen with areas of peribronchial cuffing, possibly representing edema and/or infection. A small right pleural effusion is present. No definite pneumothorax is seen within the limitations of this semierect radiograph. Heart and mediastinum: The cardiomediastinal silhouette is enlarged, unchanged. The aorta is mildly tortuous and calcified. Bones: Changes of median sternotomy are noted. Changes of ACDF are partially visualized in the lower cervical spine. IMPRESSION: 1. No significant interval change compared to the prior study. HEMATOLOGY PTT 30.7 s 22.9 - 02/27 [place] 35.8 /2016 [facility] Chest 1view Chest 1view EXAM: XR CHEST 1 VIEW 02/27 - [facility] DX DX - Medical This report was dictated by a [employer]/Fellow. I have personally reviewed the images as Center well as the Resident's interpretation and agree with the findings. DATE: 02/27/2017 12:34 PM CDT Read by: Osito Oliva MD Resident: Osito Oliva MD Dictated Date/time: 02/27/17 08:24 Electronically Signed by: Tom Lion MD 02/27/17 18:49 FINAL REPORT INDICATION: Pleural effusion COMPARISON: None. TECHNIQUE: AP chest FINDINGS: Lines, tubes and hardware: The distal NG tube again overlies the stomach with the sidehole near the GE junction. A right IJ central venous catheter with the tip overlying the SVC is unchanged. The ET tu be position is essentially unchanged with the tip at the superior thoracic trachea, well above the candelario. Lungs and pleura: The bilateral retrocardiac linear opacities consistent with atelectasis are unchanged from the most recent comparison. Heart and mediastinum: The cardiomediastinal silhouette is normal and unchanged. Bones: No acute bony abnormality is identified. IMPRESSION: No significant interval change from the most recent comparison, yesterday. HEMATOLOGY INR 1.54 0.85 - 02/26 [facility] 1.17 [facility] HEMATOLOGY PT 18.8 s 12.0 - 02/26 [facility] 14.7 [facility] BACTERIAL - MRSA by PCR Negative 02/26 [facility] SEROLOGY Medical (02/26/17 11:24 AM) [place] CHEM PANEL Lactic Acid 5.5 mMol/L 0.5 - 2.2 02/26 Result [facility] Lvl Comment: Medical Critical Center Result(s) called to Tom Washington at 02/26/2017 12:21 by ET. Read back OK. HEMATOLOGY RBC Morph Normal 02/26 Medical (02/26/17 11:24 AM) Center HEMATOLOGY Plt Morph Normal 02/26 Medical (02/26/17 11:24 AM) [place] BLOOD BANK Cryo product Product available 02/26 [facility] RESULTS Medical (02/26/17 9:46 AM) Center BLOOD BANK FFP product Product available 02/26 [facility] Medical (02/26/17 9:43 AM) [place] Chest 1view Chest 1view EXAM: XR CHEST 1 VIEW 02/26 - [facility] DX DX /2016 - [facility] DATE: 02/26/2017 11:21 AM CDT Read by: Mónica Aggarwal MD Dictated Date/time: 02/26/17 12:37 Electronically Signed by: Mónica Aggarwal MD 02/26/17 12:38 FINAL REPORT INDICATION: - post op. FINDINGS: Comparison is made to yesterday. The cardiomediastinal silhouette is stable with CABG changes. There is mild bilateral lower lobe platelike atelectasis.. The costophrenic sulci are sharp, without effusions. The patient is intubated with the tip of the ET tube well above the candelario. A nasogastric tube has been inserted with tip in the proximal stomach. A new right jugular central venous catheter has its tip near the atriocaval junction. IMPRESSION: 1. New lines and tubes, as above. 2. Bilateral lower lobe platelike atelectasis. BLOOD BANK Antibody Scrn Negative 02/25 [facility] (02/25/17 9:42 AM) [place] BLOOD BANK ABO/Rh A POS 02/25 [facility] /2016 [facility] HEMATOLOGY Basophils # 0.1 K/CMM 0.0 - 0.2 02/[address] URINE AND UA Sq Epi None Seen 02/25 [facility]2016 [facility] URINE AND UA <=1.0 0.1 - 1.0 02/25 [facility] Urobilinogen mg/dL /2016 [facility] URINE AND UA Leuk Est Small Negative 02/25 [facility] *ABN* [place] (02/25/17 9:05 AM) URINE AND UA WBC 20 /HPF 0 - 5 02/25 [facility] /2016 [facility] URINE AND UA RBC 3 /HPF 0 - 2 02/25 [facility] /2016 [facility] URINE AND UA Mucus Few /LPF None Seen 02/25 [facility] /LPF /2016 [facility] URINE AND UA Ketones Negative Negative 02/25 [facility] mg/dL mg/dL [facility] URINE AND UA Bili Negative Negative 02/25 [facility] *NA* [place] (02/25/17 9:05 AM) URINE AND UA Blood Negative Negative 02/25 [facility] /2016 [facility] (02/25/17 9:05 AM) [place] URINE AND UA Nitrite Negative Negative 02/25 [facility] (02/25/17 9:05 AM) [place] URINE AND UA Color Yellow Yellow 02/25 [facility] Medical *NA* [place] (02/25/17 9:05 AM) URINE AND UA Turbidity Clear Clear 02/25 [facility] (02/25/17 9:05 AM) [place] URINE AND UA Spec Grav 1.013 <=1.030 02/[address] URINE AND UA Protein Negative Negative 02/25 [facility] mg/dL mg/dL /2016 [facility] URINE AND UA pH 6.0 5.0 - 8.0 02/[address] URINE AND UA Glucose Negative Negative 02/25 [facility] mg/dL mg/dL [facility] Chest 2 Chest 2 views EXAM: XR CHEST 2 VIEWS 02/25 - [facility] views DX DX /2016 - [facility] This report was dictated by a [employer]/Fellow. I have personally reviewed the images as Center well as the Resident's interpretation and agree with the findings. DATE: 02/25/2017 9:42 AM CDT Read by: Marianne Pino MD Resident: Marianne Pino MD Dictated Date/time: 02/25/17 11:03 Electronically Signed by: Mónica Aggarwal MD 02/26/17 09:48 FINAL REPORT INDICATION: Abdominal aortic aneurysm COMPARISON: None. TECHNIQUE: PA and lateral chest radiographs FINDINGS: Lines, tubes and hardware: Post CABG changes are noted. Spinal fusion hardware overlies the lower cervical spine. Lungs and pleura: No pulmonary or pleural based abnormality is identified. Pulmonary vascularity is normal. Heart and mediastinum: The heart size is normal. The thoracic aorta is tortuous and ectatic. Vascular calcifications are present at the aorta. Bones: No acute bony abnormality is identified. IMPRESSION: CABG changes with tortuous and ectatic thoracic aorta; otherwise, no acute cardiopulmonary abnormality. Vital Signs Vital Sign Value Date Comments Source Systolic (mm Hg) 125 03/03/2017 [facility] Diastolic (mm Hg) 58 03/03/2017 [facility] Systolic (mm Hg) 129 03/03/2017 [facility] Diastolic (mm Hg) 62 03/03/2017 [facility] Respitory Rate 18 03/03/2017 [facility] Systolic (mm Hg) 166 03/03/2017 [facility] Diastolic (mm Hg) 70 03/03/2017 [facility] Respitory Rate 20 03/03/2017 [facility] Respitory Rate 24 03/03/2017 [facility] Temperature Oral (F) 98.1 F 03/03/2017 [facility] Temperature Oral (F) 97.9 F 03/03/2017 [facility] Temperature Oral (F) 97.9 F 03/02/2017 [facility] Height 165.1 cm 02/26/2017 [facility] Height 165.1 cm 02/26/2017 [facility] BMI Calculated 31.77 02/26/2017 [facility] Weight 86.591 02/26/2017 [facility] Height 165.1 cm 02/26/2017 [facility] Weight 90.455 02/25/2017 [facility] BMI Calculated 33.18 02/25/2017 [facility] Encounters Location Location Encounter Encounter Reason Attending ADM DC Status Source Details Type Number For Provider Date Date Visit [facility] [id number] German Safi 02/26 03/03 [facility] Outpatient [id number] VANESA ANAYA 03/11 [facility] [place] [facility] [id number] TUNG NAKUL 05/21 [facility] [place] Outpatient [id number] VANESA ANAYA 05/21 [facility] Ambulatory [id number] German Safi 05/21 05/21 [facility] /2016 Medical [facility] Ambulatory [id number] German Safi 05/21 05/21 Urology Pre-Reg /2016 Medical [facility] Procedures Procedure Code Date Perfomer Comments Source CABG - Coronary [id number] [facility] artery bypass Medical graft Center CEA - Carotid [id number] right [facility] endarterectomy<sup Medical >1</sup> Center Fusion<sup>2</sup> [id number] cervical [facility] Polypectomy [id number] [facility] CABG - Coronary [id number] Medical artery bypass Group graft CEA - Carotid [id number] right [facility] endarterectomy<sup Group >1</sup> Fusion<sup>2</sup> [id number] cervical [facility] Polypectomy [id number] [facility] Group
--- OUTSIDE RECORDS SUMMARY | 2018-02-10 23:33 | XMS REPORT ---
:1940 Author Organization [facility] Address [address] [place] [address] Dr. Valente [address] [place] [address] Care Team Providers Name Role Phone MAXINE MARINO Unavailable Unavailable NIKIA CORDOVA Unavailable Unavailable RALF SOLIS Unavailable Unavailable NESTOR THOMAS Unavailable Unavailable MAXINE WAN Unavailable Unavailable Problems This patient has no known problems. Allergies, Adverse Reactions, Alerts This patient has no known allergies or adverse reactions. Medications This patient has no known medications. Results Test Description Test Time Test Comments Text Results Atomic Results Result Comments RI, COMPUTER ENGINEER IN 2018-02-10 Reason for FINAL REPORT PATIENT OR/30 MINUTE 13:59:00 exam:->ureteroscopy with ID: [id number] INCREMENTS laser INDICATION: Ureteroscopy with laser IMPRESSION: 65 fluoroscopic [...] 1.28 minutes, 65 images Signed: Bea Mendoza MDReport Verified Date/Time: 02/10/2018 13:59:29 Reading Location: [facility] B1 [id number] Consult Reading Room UE EXAM 2018-01-14 Surgical Pathology 10:45:00 Report Case: [id number] Authorizing Provider: Maxine Marino MD Collected: 01/08/2018 1715 Ordering Location: [facility] PERIOPERATIVE Received: 01/09/2018 0810 SERVICES Pathologist: Karey Salas MD Specimen: Ureteral Stent, right nephrostomy tube for ID B.RIGHT NEPHROSTOMY TUBE, REMOVAL:- MEDICAL HARDWARE IDENTIFIED (GROSS ONLY) Signing Pathologist Direct Phone Line: [phone] ally signed by Karey Salas MD on 01/14/2018 at 10:45 [id number]. Right nephrostomy tubeB.The specimen is received in a fluidless container labeled with patient information and labeled "right nephrostomy tube" and consists of a white tube measuring 30 cm in length x 0.2 cm in diameter. The specimen is submitted for gross identification only. CG/pl n/a BASIC METABOLIC PANEL 2018-01-09 06:17:00 Test Item Value Reference Range Comments SODIUM (BEAKER) (test 137 meq/L 136-145 dcid=080) POTASSIUM (BEAKER) (test 4.3 meq/L 3.5-5.1 gkud=514) CHLORIDE (BEAKER) (test 108 meq/L 98-107 agvo=861) CO2 (BEAKER) (test mtko=528) 21 meq/L 22-29 BLOOD UREA NITROGEN (BEAKER) 11 mg/dL 7-21 (test rfji=769) CREATININE (BEAKER) (test 0.97 mg/dL 0.57-1.25 dbib=437) GLUCOSE RANDOM (BEAKER) 115 mg/dL 70-105 (test lwlv=872) CALCIUM (BEAKER) (test 9.0 mg/dL 8.4-10.2 sysz=684) EGFR (BEAKER) (test 75 mL/min/1.73 sq m ESTIMATED GFR IS NOT dtpm=3771) ACCURATE CREATININE CLEARANCE IN PREDICTING GLOMERULAR FILTRATION RATE. ESTIMATED GFR IS NOT APPLICABLE FOR DIALYSIS PATIENTS. CBC W/PLT COUNT & AUTO [id number] 06:09:00 Test Item Value Reference Range Comments WHITE BLOOD CELL COUNT (BEAKER) (test lisp=184) 8.7 K/ L 3.5-10.5 RED BLOOD CELL COUNT (BEAKER) (test gzbo=372) 3.61 M/ L 4.63-6.08 HEMOGLOBIN (BEAKER) (test bsug=844) 10.3 GM/DL 13.7-17.5 HEMATOCRIT (BEAKER) (test ikze=330) 33.5 % 40.1-51.0 MEAN CORPUSCULAR VOLUME (BEAKER) (test whsm=100) 92.8 fL 79.0-92.2 MEAN CORPUSCULAR HEMOGLOBIN (BEAKER) (test 28.5 pg 25.7-32.2 zykk=667) MEAN CORPUSCULAR HEMOGLOBIN CONC (BEAKER) (test 30.7 GM/DL 32.3-36.5 zdjd=281) RED CELL DISTRIBUTION WIDTH (BEAKER) (test 16.8 % 11.6-14.4 mzhh=912) PLATELET COUNT (BEAKER) (test etww=579) 114 K/CU MM 150-450 MEAN PLATELET VOLUME (BEAKER) (test gjuy=593) 11.1 fL 9.4-12.4 NUCLEATED RED BLOOD CELLS (BEAKER) (test 0 /100 WBC 0-0 fzgi=905) NEUTROPHILS RELATIVE PERCENT (BEAKER) (test 66 % cfvd=410) LYMPHOCYTES RELATIVE PERCENT (BEAKER) (test 15 % kigh=021) MONOCYTES RELATIVE PERCENT (BEAKER) (test 15 % fbam=511) EOSINOPHILS RELATIVE PERCENT (BEAKER) (test 4 % lhmr=527) BASOPHILS RELATIVE PERCENT (BEAKER) (test 1 % whub=995) NEUTROPHILS ABSOLUTE COUNT (BEAKER) (test 5.72 K/ L 1.78-5.38 qicb=579) LYMPHOCYTES ABSOLUTE COUNT (BEAKER) (test 1.27 K/ L 1.32-3.57 vsgt=859) MONOCYTES ABSOLUTE COUNT (BEAKER) (test 1.27 K/ L 0.30-0.82 poma=154) EOSINOPHILS ABSOLUTE COUNT (BEAKER) (test 0.34 K/ L 0.04-0.54 losx=826) BASOPHILS ABSOLUTE COUNT (BEAKER) (test 0.06 K/ L 0.01-0.08 ourb=502) IMMATURE GRANULOCYTES-RELATIVE PERCENT (BEAKER) 1 % 0-1 (test urca=9746) FL, COMPUTER ENGINEER IN OR/30 MINUTE [id number] 20:57:00Reason for exam:-> PYELOGRAMFINAL REPORT Examination: Retrograde pyelography 113 fluoroscopic spot viewswere obtained during the procedure by the ordering service. Images are nondiagnostic as no radiologist was present at the time of imaging. Fluoroscopic time was 2.5 minutes. Please see the procedurereport for details. Signed: Earnest Rao MDReport Verified Date/Time: 01/08/2018 20:57:50 Reading Location: [address] Reading Room Electronically signed by: EARNEST RAO M.D. on01/08/2018 08:57 PMBASIC METABOLIC [id number] 18:42:00 Test Item Value Reference Range Comments SODIUM (BEAKER) (test 138 meq/L 136-145 gkpi=907) POTASSIUM (BEAKER) (test 4.5 meq/L 3.5-5.1 owhm=741) CHLORIDE (BEAKER) (test 108 meq/L 98-107 iotz=824) CO2 (BEAKER) (test 23 meq/L 22-29 ooae=726) BLOOD UREA NITROGEN 10 mg/dL 7-21 (BEAKER) (test bavs=700) CREATININE (BEAKER) (test 0.94 mg/dL 0.57-1.25 umxv=364) GLUCOSE RANDOM (BEAKER) 125 mg/dL 70-105 (test pbtg=185) CALCIUM (BEAKER) (test 9.2 mg/dL 8.4-10.2 mqrp=837) EGFR (BEAKER) (test 78 mL/min/1.73 sq m ESTIMATED GFR IS NOT ypct=4502) ACCURATE CREATININE CLEARANCE IN PREDICTING GLOMERULAR FILTRATION RATE. ESTIMATED GFR IS NOT APPLICABLE FOR DIALYSIS PATIENTS. BASIC METABOLIC [id number] 18:41:00 Test Item Value Reference Range Comments SODIUM (BEAKER) (test 137 meq/L 136-145 tkbd=117) POTASSIUM (BEAKER) (test 4.0 meq/L 3.5-5.1 vemz=493) CHLORIDE (BEAKER) (test 107 meq/L 98-107 hexv=224) CO2 (BEAKER) (test 22 meq/L 22-29 zvlf=786) BLOOD UREA NITROGEN 13 mg/dL 7-21 (BEAKER) (test folg=308) CREATININE (BEAKER) (test 0.96 mg/dL 0.57-1.25 tvkl=621) GLUCOSE RANDOM (BEAKER) 120 mg/dL 70-105 (test jong=779) CALCIUM (BEAKER) (test 9.3 mg/dL 8.4-10.2 edmy=477) EGFR (BEAKER) (test 76 mL/min/1.73 sq m ESTIMATED GFR IS NOT ifaw=8494) ACCURATE CREATININE CLEARANCE IN PREDICTING GLOMERULAR FILTRATION RATE. ESTIMATED GFR IS NOT APPLICABLE FOR DIALYSIS PATIENTS. CBC W/PLT COUNT & AUTO [id number] 18:17:00 Test Item Value Reference Range Comments WHITE BLOOD CELL COUNT (BEAKER) (test dpug=084) 7.7 K/ L 3.5-10.5 RED BLOOD CELL COUNT (BEAKER) (test fslr=221) 3.51 M/ L 4.63-6.08 HEMOGLOBIN (BEAKER) (test yxrm=592) 10.1 GM/DL 13.7-17.5 HEMATOCRIT (BEAKER) (test tala=360) 32.4 % 40.1-51.0 MEAN CORPUSCULAR VOLUME (BEAKER) (test bnqa=304) 92.3 fL 79.0-92.2 MEAN CORPUSCULAR HEMOGLOBIN (BEAKER) (test 28.8 pg 25.7-32.2 efkw=354) MEAN CORPUSCULAR HEMOGLOBIN CONC (BEAKER) (test 31.2 GM/DL 32.3-36.5 iraf=943) RED CELL DISTRIBUTION WIDTH (BEAKER) (test 16.6 % 11.6-14.4 pfgf=751) PLATELET COUNT (BEAKER) (test zela=589) 128 K/CU MM 150-450 MEAN PLATELET VOLUME (BEAKER) (test dbty=418) 11.3 fL 9.4-12.4 NUCLEATED RED BLOOD CELLS (BEAKER) (test 0 /100 WBC 0-0 aimy=110) NEUTROPHILS RELATIVE PERCENT (BEAKER) (test 66 % jfcx=092) LYMPHOCYTES RELATIVE PERCENT (BEAKER) (test 13 % drlb=128) MONOCYTES RELATIVE PERCENT (BEAKER) (test 15 % henk=820) EOSINOPHILS RELATIVE PERCENT (BEAKER) (test 5 % eurr=211) BASOPHILS RELATIVE PERCENT (BEAKER) (test 1 % loeb=035) NEUTROPHILS ABSOLUTE COUNT (BEAKER) (test 5.05 K/ L 1.78-5.38 ebpy=629) LYMPHOCYTES ABSOLUTE COUNT (BEAKER) (test 1.01 K/ L 1.32-3.57 zqrt=131) MONOCYTES ABSOLUTE COUNT (BEAKER) (test 1.13 K/ L 0.30-0.82 qlgt=669) EOSINOPHILS ABSOLUTE COUNT (BEAKER) (test 0.41 K/ L 0.04-0.54 sooj=894) BASOPHILS ABSOLUTE COUNT (BEAKER) (test 0.04 K/ L 0.01-0.08 waap=125) IMMATURE GRANULOCYTES-RELATIVE PERCENT (BEAKER) 0 % 0-1 (test udjz=0737) URINE [id number] 10:16:00 Test Item Value Reference Range Comments CULTURE (BEAKER) (test PROTEUS MIRABILIS >100,000 col/mL Proteus lahl=0751) mirabilis Amikacin (test code=1) Ampicillin + Sulbactam (test code=6) Aztreonam (test code=32) Cefepime (test code=51) Cefoxitin (test code=68) Ceftazidime (test code=27) Ceftriaxone (test code=52) Ertapenem (test code=38) Gentamicin (test code=18) Levofloxacin (test code=22) Meropenem (test code=34) Nitrofurantoin (test code=23) Piperacillin + Tazobactam (test code=29) Tetracycline (test code=2) Tobramycin (test code=25) Trimethoprim + Sulfamethoxazole (test code=47) CULTURE (BEAKER) (test >100,000 col/mL Same lpyf=0647) organism has been isolated from cultures(s) of the same body site and collection date. Repeat identification and susceptibility testing performed only after consultation with the clinical microbiology laboratory.Refer to previous culture ofPseudomonas aeruginosa >100,000 col/mL skin albin<10,000 col/mL Gram negative chrissie of a 3rd typeURINE [id number] 10:13:00 Test Item Value Reference Range Comments CULTURE (BEAKER) (test ESCHERICHIA COLI >100,000 col/mL igri=0587) Escherichia coli Amikacin (test code=1) Ampicillin + Sulbactam (test code=6) Aztreonam (test code=32) Cefepime (test code=51) Cefoxitin (test code=68) Ceftazidime (test code=27) Ceftriaxone (test code=52) Ertapenem (test code=38) Gentamicin (test code=18) Levofloxacin (test code=22) Meropenem (test code=34) Nitrofurantoin (test code=23) Piperacillin + Tazobactam (test code=29) Tetracycline (test code=2) Tobramycin (test code=25) Trimethoprim + Sulfamethoxazole (test code=47) CULTURE (BEAKER) (test >100,000 col/mL Same ieyi=0569) organism has been isolated from cultures(s) of the same body site and collection date. Repeat identification and susceptibility testing performed only after consultation with the clinical microbiology laboratory.Refer to previous culture ofProteus mirabilis CULTURE (BEAKER) (test >100,000 col/mL tuev=7223) Pseudomonas aeruginosa CBC W/PLT COUNT & AUTO [id number] 11:42:00 Test Item Value Reference Range Comments WHITE BLOOD CELL COUNT (BEAKER) (test cved=630) 9.2 K/ L 3.5-10.5 RED BLOOD CELL COUNT (BEAKER) (test ppll=298) 3.31 M/ L 4.63-6.08 HEMOGLOBIN (BEAKER) (test vhoi=696) 9.6 GM/DL 13.7-17.5 HEMATOCRIT (BEAKER) (test cqoz=324) 30.2 % 40.1-51.0 MEAN CORPUSCULAR VOLUME (BEAKER) (test jbvc=816) 91.2 fL 79.0-92.2 MEAN CORPUSCULAR HEMOGLOBIN (BEAKER) (test 29.0 pg 25.7-32.2 wapm=416) MEAN CORPUSCULAR HEMOGLOBIN CONC (BEAKER) (test 31.8 GM/DL 32.3-36.5 utoh=899) RED CELL DISTRIBUTION WIDTH (BEAKER) (test 16.7 % 11.6-14.4 exib=313) PLATELET COUNT (BEAKER) (test yqjx=141) 127 K/CU MM 150-450 MEAN PLATELET VOLUME (BEAKER) (test ftpx=745) 11.1 fL 9.4-12.4 NUCLEATED RED BLOOD CELLS (BEAKER) (test 0 /100 WBC 0-0 vrbq=333) (CELLAVISION MANUAL DIFF)2017-12-18 11:42:00 Test Item Value Reference Range Comments NEUTROPHILS - REL (CELLAVISION)(BEAKER) (test 73 % jawe=8683) LYMPHOCYTES - REL (CELLAVISION)(BEAKER) (test 17 % ucot=4897) MONOCYTES - REL (CELLAVISION)(BEAKER) (test 8 % deza=4402) EOSINOPHILS - REL (CELLAVISION)(BEAKER) (test 2 % pdcz=7191) NEUTROPHILS - ABS (CELLAVISION)(BEAKER) (test 6.72 K/ul 1.78-5.38 dfsc=6862) LYMPHOCYTES - ABS (CELLAVISION)(BEAKER) (test 1.56 K/ul 1.32-3.57 dgzo=5123) MONOCYTES - ABS (CELLAVISION)(BEAKER) (test 0.74 K/uL 0.30-0.82 teqe=0933) EOSINOPHILS - ABS (CELLAVISION)(BEAKER) (test 0.18 K/uL 0.04-0.54 bboy=5211) TOTAL COUNTED (BEAKER) (test muok=7760) 100 WBC MORPHOLOGY (BEAKER) (test svcf=586) Normal PLT MORPHOLOGY (BEAKER) (test tnla=327) Normal POLYCHROMATOPHILLIC RBCS(BEAKER) (test vkpm=019) 1+ few ANISOCYTOSIS (BEAKER) (test rmva=153) 1+ few ARTIFACT (CELLAVISION)(BEAKER) (test cvxx=1455) Present PLATELET CONCENTRATION (CELLAVISION)(BEAKER) (test Decreased glys=1911) Received comment: User comments: Slide comments:ANG, DRAINAGE TUBE CHANGE ( GASTRO, NEPHRO OR BILIARY)2017-12-18 10:11:00Reason for exam:->BACK PAINReason for exam:->URINARY RETENTIONFINAL REPORT Right percutaneous nephrostomy catheter exchange.History: Back pain, urinary retention Modality : Fluoroscopy Sedation: Versed 1.0 mg and fentanyl 50 mcg was given intravenously for conscious sedation. Vital signswere monitored throughout the procedure by a nurse, and remained stable. Physician intra- service time was 30 minutes. Development Officer: Uriah Johnston MD. Oven Dumper: Jas Approach: Existing right nephrostomy Estimated blood loss: < 5 cc. Specimen: None. Fluoroscopy Time: 3.3 min.Reference Air Kerma (Ka, r): 47.3 mGy. Technique: [...] was unable to be injected through the existingright nephrostomy catheter as it was completely occluded. The catheter was then severed. We tried toadvance several guidewires through the catheter with secondary to complete occlusion which could notadvance the wire through the catheter. A 9 Afghan sheath was advanced over the catheter and into thekidney. The catheter is able to be removed through the sheath. A guidewire was then inserted throughthe sheath and coiled within the renal pelvis. The sheath was removed and a new 8.5 Afghan catheter was advanced over the guidewire and [...] the patient have more frequent exchange of thecatheter, ideally every six weeks. Signed: Uriah Johnston MDReport Verified Date/Time: 12/18/201710:11:33 Reading Location: [facility] Diagnostic Imaging Reading Room - [facility] 1.310.12 Electronically signed by: URIAH JOHNSTON on 2017 10:11 [id number] 06:14:00 Test Item Value Reference Range Comments MAGNESIUM (BEAKER) (test mean=879) 2.2 mg/dL 1.6-2.6 BASIC METABOLIC [id number] 06:14:00 Test Item Value Reference Range Comments SODIUM (BEAKER) (test 134 meq/L 136-145 koxe=995) POTASSIUM (BEAKER) (test 4.0 meq/L 3.5-5.1 acvt=640) CHLORIDE (BEAKER) (test 104 meq/L 98-107 wbwg=642) CO2 (BEAKER) (test 21 meq/L 22-29 jrjm=376) BLOOD UREA NITROGEN 18 mg/dL 7-21 (BEAKER) (test knnu=777) CREATININE (BEAKER) (test 0.96 mg/dL 0.57-1.25 egkp=114) GLUCOSE RANDOM (BEAKER) 111 mg/dL 70-105 (test kupy=860) CALCIUM (BEAKER) (test 9.2 mg/dL 8.4-10.2 dskl=838) EGFR (BEAKER) (test 76 mL/min/1.73 sq m ESTIMATED GFR IS NOT hxfk=7437) ACCURATE CREATININE CLEARANCE IN PREDICTING GLOMERULAR FILTRATION RATE. ESTIMATED GFR IS NOT APPLICABLE FOR DIALYSIS PATIENTS. CBC W/PLT COUNT & AUTO [id number] 09:56:00 Test Item Value Reference Range Comments WHITE BLOOD CELL COUNT (BEAKER) (test pifa=060) 11.6 K/ L 3.5-10.5 RED BLOOD CELL COUNT (BEAKER) (test hnaz=048) 3.31 M/ L 4.63-6.08 HEMOGLOBIN (BEAKER) (test cjve=237) 9.3 GM/DL 13.7-17.5 HEMATOCRIT (BEAKER) (test lsmj=324) 30.2 % 40.1-51.0 MEAN CORPUSCULAR VOLUME (BEAKER) (test lwpo=563) 91.2 fL 79.0-92.2 MEAN CORPUSCULAR HEMOGLOBIN (BEAKER) (test 28.1 pg 25.7-32.2 zmwm=210) MEAN CORPUSCULAR HEMOGLOBIN CONC (BEAKER) (test 30.8 GM/DL 32.3-36.5 rxjp=663) RED CELL DISTRIBUTION WIDTH (BEAKER) (test 16.6 % 11.6-14.4 nooe=148) PLATELET COUNT (BEAKER) (test sdqf=248) 130 K/CU MM 150-450 MEAN PLATELET VOLUME (BEAKER) (test cawp=303) 11.5 fL 9.4-12.4 NUCLEATED RED BLOOD CELLS (BEAKER) (test 0 /100 WBC 0-0 srfg=546) (CELLAVISION MANUAL DIFF)2017-12-17 09:56:00 Test Item Value Reference Range Comments NEUTROPHILS - REL (CELLAVISION)(BEAKER) (test 83 % roke=5379) LYMPHOCYTES - REL (CELLAVISION)(BEAKER) (test 8 % qcda=9761) MONOCYTES - REL (CELLAVISION)(BEAKER) (test 7 % hiai=7978) BASOPHILS - REL (CELLAVISION)(BEAKER) (test 1 % hdsp=0700) BANDS - REL (CELLAVISION)(BEAKER) (test kukg=2866) 1 % 0-10 NEUTROPHILS - ABS (CELLAVISION)(BEAKER) (test 9.63 K/ul 1.78-5.38 vgzq=0646) LYMPHOCYTES - ABS (CELLAVISION)(BEAKER) (test 0.93 K/ul 1.32-3.57 siqq=2227) MONOCYTES - ABS (CELLAVISION)(BEAKER) (test 0.81 K/uL 0.30-0.82 clao=9996) BASOPHILS - ABS (CELLAVISION)(BEAKER) (test 0.12 K/uL 0.01-0.08 ouho=3506) BANDS - ABS (CELLAVISION)(BEAKER) (test jjnn=7929) 0.12 K/uL 0.00-0.80 TOTAL COUNTED (BEAKER) (test hzof=8556) 100 RBC MORPHOLOGY (BEAKER) (test jpgn=801) Normal WBC MORPHOLOGY (BEAKER) (test ezdv=440) Normal PLT MORPHOLOGY (BEAKER) (test qtzm=653) Normal ARTIFACT (CELLAVISION)(BEAKER) (test orzt=5917) Present PLATELET CONCENTRATION (CELLAVISION)(BEAKER) (test Decreased wsxg=9455) Received comment: User comments: Slide comments:[id number] 05:58:00 Test Item Value Reference Range Comments MAGNESIUM (BEAKER) (test qbsv=004) 1.9 mg/dL 1.6-2.6 BASIC METABOLIC [id number] 05:58:00 Test Item Value Reference Range Comments SODIUM (BEAKER) (test 136 meq/L 136-145 sqgi=248) POTASSIUM (BEAKER) (test 4.1 meq/L 3.5-5.1 wurv=355) CHLORIDE (BEAKER) (test 105 meq/L 98-107 nfqp=526) CO2 (BEAKER) (test 22 meq/L 22-29 qlpm=452) BLOOD UREA NITROGEN 20 mg/dL 7-21 (BEAKER) (test kdhf=396) CREATININE (BEAKER) (test 1.03 mg/dL 0.57-1.25 dnfv=914) GLUCOSE RANDOM (BEAKER) 124 mg/dL 70-105 (test enno=239) CALCIUM (BEAKER) (test 9.0 mg/dL 8.4-10.2 vuzl=720) EGFR (BEAKER) (test 70 mL/min/1.73 sq m ESTIMATED GFR IS NOT xsnx=1933) ACCURATE CREATININE CLEARANCE IN PREDICTING GLOMERULAR FILTRATION RATE. ESTIMATED GFR IS NOT APPLICABLE FOR DIALYSIS PATIENTS. URINALYSIS W/ [id number] 11:48:00 Test Item Value Reference Range Comments COLOR (BEAKER) (test vccc=463) Yellow CLARITY (BEAKER) (test bzih=379) Cloudy SPECIFIC GRAVITY UA (BEAKER) (test 1.012 1.001-1.035 zuae=645) PH UA (BEAKER) (test kpzq=215) 8.5 5.0-8.0 PROTEIN UA (BEAKER) (test nqks=947) >600 mg/dL Negative GLUCOSE UA (BEAKER) (test mqcy=426) Negative Negative KETONES UA (BEAKER) (test mbju=974) Negative Negative BILIRUBIN UA (BEAKER) (test dswp=223) Negative Negative BLOOD UA (BEAKER) (test pouq=583) Small Negative NITRITE UA (BEAKER) (test pzoo=656) Negative Negative LEUKOCYTE ESTERASE UA (BEAKER) (test Large Negative bggm=989) UROBILINOGEN UA (BEAKER) (test dlrd=307) 0.2 mg/dL 0.2-1.0 RBC UA (BEAKER) (test hsml=124) 16 /HPF WBC UA (BEAKER) (test rtdk=096) 0 /HPF MUCUS (BEAKER) (test yxtm=5118) Few SQUAMOUS EPITHELIAL (BEAKER) (test 4 /HPF pqhd=314) CRYSTALS, URINE (BEAKER) (test tqxw=2489) Many TRIPLE PHOSPHATE CRYSTALS (BEAKER) (test Few oacl=2012) URIC ACID CRYSTALS (BEAKER) (test Moderate mukm=0699) YEAST (BEAKER) (test hjve=0174) Many SOURCE(BEAKER) (test lfah=6634) Urine, Nephrostomy URINALYSIS W/ [id number] 11:35:00 Test Item Value Reference Range Comments COLOR (BEAKER) (test vjhy=996) Yellow CLARITY (BEAKER) (test olja=728) Cloudy SPECIFIC GRAVITY UA (BEAKER) (test wdmg=843) 1.014 1.001-1.035 PH UA (BEAKER) (test hyxq=883) 8.0 5.0-8.0 PROTEIN UA (BEAKER) (test duhp=961) 200 mg/dL Negative GLUCOSE UA (BEAKER) (test kvpz=995) Negative Negative KETONES UA (BEAKER) (test hjia=490) Negative Negative BILIRUBIN UA (BEAKER) (test myju=868) Negative Negative BLOOD UA (BEAKER) (test jlqo=349) Moderate Negative NITRITE UA (BEAKER) (test dcbq=900) Positive Negative LEUKOCYTE ESTERASE UA (BEAKER) (test amzn=477) Large Negative UROBILINOGEN UA (BEAKER) (test jfnm=744) 0.2 mg/dL 0.2-1.0 RBC UA (BEAKER) (test qaap=390) 3 /HPF WBC UA (BEAKER) (test jhdn=648) > /HPF BACTERIA (BEAKER) (test kntv=438) Moderate SOURCE(BEAKER) (test mkox=0345) Urine, Voided CBC W/PLT COUNT & AUTO [id number] 10:12:00 Test Item Value Reference Range Comments WHITE BLOOD CELL COUNT (BEAKER) (test rqvx=478) 12.5 K/ L 3.5-10.5 RED BLOOD CELL COUNT (BEAKER) (test cygz=726) 4.14 M/ L 4.63-6.08 HEMOGLOBIN (BEAKER) (test rtak=327) 11.5 GM/DL 13.7-17.5 HEMATOCRIT (BEAKER) (test xhfd=221) 37.6 % 40.1-51.0 MEAN CORPUSCULAR VOLUME (BEAKER) (test ridb=974) 90.8 fL 79.0-92.2 MEAN CORPUSCULAR HEMOGLOBIN (BEAKER) (test 27.8 pg 25.7-32.2 hxmd=038) MEAN CORPUSCULAR HEMOGLOBIN CONC (BEAKER) (test 30.6 GM/DL 32.3-36.5 jlxg=949) RED CELL DISTRIBUTION WIDTH (BEAKER) (test 16.1 % 11.6-14.4 ynfh=199) PLATELET COUNT (BEAKER) (test ztfq=928) 152 K/CU MM 150-450 MEAN PLATELET VOLUME (BEAKER) (test bdzh=076) 10.3 fL 9.4-12.4 NUCLEATED RED BLOOD CELLS (BEAKER) (test 0 /100 WBC 0-0 wlas=066) (CELLAVISION MANUAL DIFF)2017-12-16 10:12:00 Test Item Value Reference Range Comments NEUTROPHILS - REL (CELLAVISION)(BEAKER) (test 83 % nwan=7580) LYMPHOCYTES - REL (CELLAVISION)(BEAKER) (test 3 % vmtd=3138) MONOCYTES - REL (CELLAVISION)(BEAKER) (test 7 % bzct=5329) BANDS - REL (CELLAVISION)(BEAKER) (test 7 % 0-10 hnsv=7728) NEUTROPHILS - ABS (CELLAVISION)(BEAKER) (test 10.38 K/ul 1.78-5.38 zfbm=3003) LYMPHOCYTES - ABS (CELLAVISION)(BEAKER) (test 0.38 K/ul 1.32-3.57 uvvr=9963) MONOCYTES - ABS (CELLAVISION)(BEAKER) (test 0.88 K/uL 0.30-0.82 yfxk=8385) BANDS - ABS (CELLAVISION)(BEAKER) (test 0.88 K/uL 0.00-0.80 rmfh=7793) TOTAL COUNTED (BEAKER) (test nsrg=7182) 100 WBC MORPHOLOGY (BEAKER) (test erln=351) Normal PLT MORPHOLOGY (BEAKER) (test qzzz=740) Normal POLYCHROMATOPHILLIC RBCS(BEAKER) (test urko=154) 1+ few ANISOCYTOSIS (BEAKER) (test xdzw=475) 1+ few ARTIFACT (CELLAVISION)(BEAKER) (test odrc=9064) Present PLATELET CONCENTRATION (CELLAVISION)(BEAKER) Adequate (test cyan=3272) Received comment: User comments: Slide comments:BASIC METABOLIC [id number] 09:50:00 Test Item Value Reference Range Comments SODIUM (BEAKER) (test 136 meq/L 136-145 hkvv=269) POTASSIUM (BEAKER) (test 4.5 meq/L 3.5-5.1 dgvh=052) CHLORIDE (BEAKER) (test 105 meq/L 98-107 utpy=717) CO2 (BEAKER) (test 22 meq/L 22-29 qoou=204) BLOOD UREA NITROGEN 21 mg/dL 7-21 (BEAKER) (test wyii=836) CREATININE (BEAKER) (test 1.01 mg/dL 0.57-1.25 blli=248) GLUCOSE RANDOM (BEAKER) 149 mg/dL 70-105 (test xpsr=391) CALCIUM (BEAKER) (test 9.6 mg/dL 8.4-10.2 tnfo=131) EGFR (BEAKER) (test 72 mL/min/1.73 sq m ESTIMATED GFR IS NOT buec=5847) ACCURATE CREATININE CLEARANCE IN PREDICTING GLOMERULAR FILTRATION RATE. ESTIMATED GFR IS NOT APPLICABLE FOR DIALYSIS PATIENTS. RAD, CHEST, 1 VIEW, NON [id number] 08:15:00Reason for exam:->Post-op TAVR with linesShould this be performed at the bedside?->YesFINAL REPORT Chest one view INDICATION: Postop TAVR [...] No pneumothorax is seen. Signed: Bea Mendoza MDReport Verified Date/Time: 09/20/2017 08:15:10 Reading Location: [facility] Radiology Reading Room [id number] 04:05:00 Test Item Value Reference Range Comments PHOSPHORUS (BEAKER) (test omat=851) 2.5 mg/dL 2.3-4.7 [id number] 04:05:00 Test Item Value Reference Range Comments MAGNESIUM (BEAKER) (test uata=630) 1.8 mg/dL 1.6-2.6 BASIC METABOLIC [id number] 04:05:00 Test Item Value Reference Range Comments SODIUM (BEAKER) (test 137 meq/L 136-145 ubcw=899) POTASSIUM (BEAKER) (test 3.9 meq/L 3.5-5.1 kxuz=860) CHLORIDE (BEAKER) (test 106 meq/L 98-107 kies=673) CO2 (BEAKER) (test 25 meq/L 22-29 ufny=605) BLOOD UREA NITROGEN 17 mg/dL 7-21 (BEAKER) (test hzki=998) CREATININE (BEAKER) (test 0.81 mg/dL 0.57-1.25 foeg=273) GLUCOSE RANDOM (BEAKER) 121 mg/dL 70-105 (test nseu=191) CALCIUM (BEAKER) (test 8.3 mg/dL 8.4-10.2 leqh=650) EGFR (BEAKER) (test 93 mL/min/1.73 sq m ESTIMATED GFR IS NOT yiur=2620) ACCURATE CREATININE CLEARANCE IN PREDICTING GLOMERULAR FILTRATION RATE. ESTIMATED GFR IS NOT APPLICABLE FOR DIALYSIS PATIENTS. [id number] 04:01:00 Test Item Value Reference Range Comments PARTIAL THROMBOPLASTIN TIME (BEAKER) (test 30.3 seconds 22.5-36.0 aojz=830) PROTHROMBIN TIME/[id number] 04:00:00 Test Item Value Reference Range Comments PROTIME (BEAKER) (test fzjq=557) 15.3 seconds 11.7-14.7 INR (BEAKER) (test nnxj=633) 1.2 <=5.9 RECOMMENDED COUMADIN/WARFARIN INR THERAPY RANGESSTANDARD DOSE: 2.0 - 3.0 Includes: PROPHYLAXIS forvenous thrombosis, systemic embolization; TREATMENT for venous thrombosis and/or pulmonary embolus.HIGH RISK: Target INR is 2.5-3.5 for patients with mechanical heart valves.CBC (HEMOGRAM ONLY)2017-09-20 03:44:00 Test Item Value Reference Range Comments WHITE BLOOD CELL COUNT (BEAKER) (test kjme=256) 9.5 K/ L 3.5-10.5 RED BLOOD CELL COUNT (BEAKER) (test hdxj=734) 3.13 M/ L 4.63-6.08 HEMOGLOBIN (BEAKER) (test vvsx=407) 9.1 GM/DL 13.7-17.5 HEMATOCRIT (BEAKER) (test xbxc=964) 28.4 % 40.1-51.0 MEAN CORPUSCULAR VOLUME (BEAKER) (test mqot=284) 90.7 fL 79.0-92.2 MEAN CORPUSCULAR HEMOGLOBIN (BEAKER) (test 29.1 pg 25.7-32.2 bara=607) MEAN CORPUSCULAR HEMOGLOBIN CONC (BEAKER) (test 32.0 GM/DL 32.3-36.5 lymc=786) RED CELL DISTRIBUTION WIDTH (BEAKER) (test 16.5 % 11.6-14.4 oagz=965) PLATELET COUNT (BEAKER) (test ijfh=052) 83 K/CU MM 150-450 MEAN PLATELET VOLUME (BEAKER) (test zrpx=680) 10.7 fL 9.4-12.4 NUCLEATED RED BLOOD CELLS (BEAKER) (test 0 /100 WBC 0-0 bidj=676) POCT-GLUCOSE [id number] 13:47:00 Test Item Value Reference Range Comments POC-GLUCOSE METER (BEAKER) 144 mg/dL 70-110 TESTED AT [address] (test olxk=6676) [facility] [address] RAD, CHEST, 1 VIEW, NON [id number] 04:48:00Reason for exam:->Post-op TAVR with linesShould this be performed at the bedside?->YesFINAL REPORT CLINICAL INDICATION: Postop Comparison: 09/18/2017 The cardiomediastinal contours are stable. Central pulmonary vascular congestion and bilateral parenchymal opacities are unchanged. There is no pneumothorax. Support lines are stable. Signed: Earnest Rao Verified Date/Time: 04:48:24 Reading Location: [address] Reading Room BLOOD GAS, [id number] 04:37:00 Test Item Value Reference Range Comments PH ARTERIAL (BEAKER) (test ftly=819) 7.43 7.35-7.45 PCO2 ARTERIAL (BEAKER) (test nziq=643) 39 mmHg 35-45 PO2 ARTERIAL (BEAKER) (test hikf=767) 112 mmHg 80-90 O2 SATURATION ARTERIAL (BEAKER) (test bolg=721) 98.1 % 96.0-97.0 HCO3 ARTERIAL (BEAKER) (test wseh=484) 25 mmol/L 21-29 BASE EXCESS ARTERIAL (BEAKER) (test fxjv=533) 0.8 mmol/L -2.0-3.0 PATIENT TEMPERATURE (BEAKER) (test pruf=1227) 37.6 C FIO2 (BEAKER) (test zrnm=1268) 30.0 % Daily ABG with morning labs while patient is intubated.[id number] 04: 27:00 Test Item Value Reference Range Comments PHOSPHORUS (BEAKER) (test whtq=441) 3.6 mg/dL 2.3-4.7 [id number] 04:27:00 Test Item Value Reference Range Comments MAGNESIUM (BEAKER) (test dhmt=689) 1.4 mg/dL 1.6-2.6 BASIC METABOLIC [id number] 04:27:00 Test Item Value Reference Range Comments SODIUM (BEAKER) (test 134 meq/L 136-145 myfz=083) POTASSIUM (BEAKER) (test 4.3 meq/L 3.5-5.1 qdqp=872) CHLORIDE (BEAKER) (test 105 meq/L 98-107 ilrx=187) CO2 (BEAKER) (test 24 meq/L 22-29 qvdo=360) BLOOD UREA NITROGEN 14 mg/dL 7-21 (BEAKER) (test kcmv=550) CREATININE (BEAKER) (test 0.80 mg/dL 0.57-1.25 kmrx=304) GLUCOSE RANDOM (BEAKER) 134 mg/dL 70-105 (test nbwk=132) CALCIUM (BEAKER) (test 8.3 mg/dL 8.4-10.2 gsvm=376) EGFR (BEAKER) (test 94 mL/min/1.73 sq m ESTIMATED GFR IS NOT bpyg=1850) ACCURATE CREATININE CLEARANCE IN PREDICTING GLOMERULAR FILTRATION RATE. ESTIMATED GFR IS NOT APPLICABLE FOR DIALYSIS PATIENTS. PROTHROMBIN TIME/[id number] 04:14:00 Test Item Value Reference Range Comments PROTIME (BEAKER) (test gyjm=651) 16.5 seconds 11.7-14.7 INR (BEAKER) (test ecqq=203) 1.3 <=5.9 RECOMMENDED COUMADIN/WARFARIN INR THERAPY RANGESSTANDARD DOSE: 2.0 - 3.0 Includes: PROPHYLAXIS forvenous thrombosis, systemic embolization; TREATMENT for venous thrombosis and/or pulmonary embolus.HIGH RISK: Target INR is 2.5-3.5 for patients with mechanical heart valves.[id number] 04:14:00 Test Item Value Reference Range Comments PARTIAL THROMBOPLASTIN TIME (BEAKER) (test 32.7 seconds 22.5-36.0 brrk=911) CBC (HEMOGRAM ONLY)2017-09-19 04:03:00 Test Item Value Reference Range Comments WHITE BLOOD CELL COUNT (BEAKER) (test sqlx=842) 9.7 K/ L 3.5-10.5 RED BLOOD CELL COUNT (BEAKER) (test wwej=907) 3.22 M/ L 4.63-6.08 HEMOGLOBIN (BEAKER) (test jgut=257) 9.1 GM/DL 13.7-17.5 HEMATOCRIT (BEAKER) (test afsv=136) 29.3 % 40.1-51.0 MEAN CORPUSCULAR VOLUME (BEAKER) (test txkr=565) 91.0 fL 79.0-92.2 MEAN CORPUSCULAR HEMOGLOBIN (BEAKER) (test 28.3 pg 25.7-32.2 hdvl=441) MEAN CORPUSCULAR HEMOGLOBIN CONC (BEAKER) (test 31.1 GM/DL 32.3-36.5 pugv=504) RED CELL DISTRIBUTION WIDTH (BEAKER) (test 16.6 % 11.6-14.4 fazi=621) PLATELET COUNT (BEAKER) (test toop=883) 92 K/CU MM 150-450 MEAN PLATELET VOLUME (BEAKER) (test upgr=096) 11.5 fL 9.4-12.4 NUCLEATED RED BLOOD CELLS (BEAKER) (test 0 /100 WBC 0-0 uzwm=436) RAD, CHEST, 1 VIEW, NON [id number] 16:24:00Reason for exam:->Post- opShould this be performed at the bedside?->YesFINAL REPORT AP chest HISTORY: Postoperative COMPARISON: None IMPRESSION:Our prosthesis present. Cardiomegaly. Mild interstitial edema. AICD present in right IJ catheter present.No large effusion. No pneumothorax. Signed: Marcos Doran MDReport Verified Date/Time: 09/18/201716:24:56 Reading Location: [facility] Reading Room [id number] 16:11:00 Test Item Value Reference Range Comments PHOSPHORUS (BEAKER) (test yedd=921) 3.3 mg/dL 2.3-4.7 [id number] 16:11:00 Test Item Value Reference Range Comments MAGNESIUM (BEAKER) (test yaqf=190) 1.4 mg/dL 1.6-2.6 BASIC METABOLIC [id number] 16:11:00 Test Item Value Reference Range Comments SODIUM (BEAKER) (test 138 meq/L 136-145 mfmp=588) POTASSIUM (BEAKER) (test 4.4 meq/L 3.5-5.1 odsz=932) CHLORIDE (BEAKER) (test 108 meq/L 98-107 gykv=708) CO2 (BEAKER) (test 23 meq/L 22-29 aovo=616) BLOOD UREA NITROGEN 13 mg/dL 7-21 (BEAKER) (test wwur=407) CREATININE (BEAKER) (test 0.81 mg/dL 0.57-1.25 fzza=805) GLUCOSE RANDOM (BEAKER) 134 mg/dL 70-105 (test ddxl=788) CALCIUM (BEAKER) (test 9.2 mg/dL 8.4-10.2 bqyd=422) EGFR (BEAKER) (test 93 mL/min/1.73 sq m ESTIMATED GFR IS NOT jfzu=9148) ACCURATE CREATININE CLEARANCE IN PREDICTING GLOMERULAR FILTRATION RATE. ESTIMATED GFR IS NOT APPLICABLE FOR DIALYSIS PATIENTS. [id number] 16:09:00 Test Item Value Reference Range Comments ACTIVATED CLOTTING TIME 120 sec TESTED AT [facility] [address] (BEAKER) (test svbi=545) [facility] [address] [id number] 16:09:00 Test Item Value Reference Range Comments ACTIVATED CLOTTING TIME 323 sec TESTED AT [facility] [address] (BEAKER) (test vzoy=403) [facility] [address] [id number] 16:09:00 Test Item Value Reference Range Comments ACTIVATED CLOTTING TIME 312 sec TESTED AT [facility] [address] (BEAKER) (test kwgf=410) [place] [id number] CBC W/PLT COUNT & AUTO [id number] 16:08:00 Test Item Value Reference Range Comments WHITE BLOOD CELL COUNT (BEAKER) (test iymz=546) 10.5 K/ L 3.5-10.5 RED BLOOD CELL COUNT (BEAKER) (test ivqs=443) 3.39 M/ L 4.63-6.08 HEMOGLOBIN (BEAKER) (test fttf=057) 9.7 GM/DL 13.7-17.5 HEMATOCRIT (BEAKER) (test oscx=419) 30.7 % 40.1-51.0 MEAN CORPUSCULAR VOLUME (BEAKER) (test mgxd=849) 90.6 fL 79.0-92.2 MEAN CORPUSCULAR HEMOGLOBIN (BEAKER) (test 28.6 pg 25.7-32.2 todj=193) MEAN CORPUSCULAR HEMOGLOBIN CONC (BEAKER) (test 31.6 GM/DL 32.3-36.5 ryif=478) RED CELL DISTRIBUTION WIDTH (BEAKER) (test 16.6 % 11.6-14.4 ymue=450) PLATELET COUNT (BEAKER) (test rfro=382) 85 K/CU MM 150-450 MEAN PLATELET VOLUME (BEAKER) (test relt=598) 10.7 fL 9.4-12.4 NUCLEATED RED BLOOD CELLS (BEAKER) (test 0 /100 WBC 0-0 jbyd=194) NEUTROPHILS RELATIVE PERCENT (BEAKER) (test 84 % dapy=295) LYMPHOCYTES RELATIVE PERCENT (BEAKER) (test 8 % wncy=498) MONOCYTES RELATIVE PERCENT (BEAKER) (test 5 % nlzc=225) EOSINOPHILS RELATIVE PERCENT (BEAKER) (test 3 % puuu=755) BASOPHILS RELATIVE PERCENT (BEAKER) (test 0 % njlw=437) NEUTROPHILS ABSOLUTE COUNT (BEAKER) (test 8.78 K/ L 1.78-5.38 cwmz=475) LYMPHOCYTES ABSOLUTE COUNT (BEAKER) (test 0.80 K/ L 1.32-3.57 ffiu=687) MONOCYTES ABSOLUTE COUNT (BEAKER) (test zwgy=497) 0.51 K/ L 0.30-0.82 EOSINOPHILS ABSOLUTE COUNT (BEAKER) (test 0.27 K/ L 0.04-0.54 qxvk=339) BASOPHILS ABSOLUTE COUNT (BEAKER) (test qprj=998) 0.03 K/ L 0.01-0.08 IMMATURE GRANULOCYTES-RELATIVE PERCENT (BEAKER) 1 % 0-1 (test xlek=7245) LACTIC ACID, ARTERIAL, WHOLE [id number] 16:07:00 Test Item Value Reference Range Comments LACTATE BLOOD ARTERIAL (2) (BEAKER) (test 1.4 mmol/L 0.5-2.2 ujlm=8798) Effective 10/05/2015: Units/Reference Range ChangeNew: 0.5-2.2 mmol/L Previous: 5 -20 mg/[id number] 16:06:00 Test Item Value Reference Range Comments PARTIAL THROMBOPLASTIN TIME (BEAKER) (test 39.4 seconds 22.5-36.0 rlby=056) PROTHROMBIN TIME/[id number] 16:05:00 Test Item Value Reference Range Comments PROTIME (BEAKER) (test hoch=291) 16.7 seconds 11.7-14.7 INR (BEAKER) (test yxbi=938) 1.4 <=5.9 RECOMMENDED COUMADIN/WARFARIN INR THERAPY RANGESSTANDARD DOSE: 2.0 - 3.0 Includes: PROPHYLAXIS forvenous thrombosis, systemic embolization; TREATMENT for venous thrombosis and/or pulmonary embolus.HIGH RISK: Target INR is 2.5-3.5 for patients with mechanical heart valves.SODIUM NA-STAT [id number] 15:46:00 Test Item Value Reference Range Comments SODIUM (BEAKER) (test mfxe=682) 135 meq/L 135-148 POTASSIUM-STAT [id number] 15:46:00 Test Item Value Reference Range Comments POTASSIUM (BEAKER) (test pcsk=205) 4.1 meq/L 3.6-5.5 CALCIUM, [id number] 15:46:00 Test Item Value Reference Range Comments CALCIUM IONIZED (BEAKER) (test bqxe=361) 1.21 mmol/L 1.12-1.27 PH, BLOOD (BEAKER) (test yktm=5717) 7.42 BLOOD GAS, [id number] 15:46:00 Test Item Value Reference Range Comments PH ARTERIAL (BEAKER) (test gpbn=183) 7.42 7.35-7.45 PCO2 ARTERIAL (BEAKER) (test cfeh=118) 40 mmHg 35-45 PO2 ARTERIAL (BEAKER) (test aylg=211) 215 mmHg 80-90 O2 SATURATION ARTERIAL (BEAKER) (test rfcv=696) 99.5 % 96.0-97.0 HCO3 ARTERIAL (BEAKER) (test oxoe=516) 26 mmol/L 21-29 BASE EXCESS ARTERIAL (BEAKER) (test pdhb=347) 1.1 mmol/L -2.0-3.0 PATIENT TEMPERATURE (BEAKER) (test wevv=1651) 37.1 C FIO2 (BEAKER) (test jjnd=1986) 40.0 % GLUCOSE-STAT [id number] 15:46:00 Test Item Value Reference Range Comments GLUCOSE RANDOM (BEAKER) (test hqtn=526) 129 mg/dL 70-110 HGB/HCT (H&H) - STAT [id number] 15:46:00 Test Item Value Reference Range Comments HEMOGLOBIN (BEAKER) (test ujva=830) 10.6 g/dL 13.0-16.8 HEMATOCRIT (BEAKER) (test nbdx=874) 31.0 % 40.0-50.0 POTASSIUM-STAT [id number] 14:38:00 Test Item Value Reference Range Comments POTASSIUM (BEAKER) (test ybez=829) 3.7 meq/L 3.6-5.5 CALCIUM, [id number] 14:38:00 Test Item Value Reference Range Comments CALCIUM IONIZED (BEAKER) (test tevj=085) 1.22 mmol/L 1.12-1.27 PH, BLOOD (BEAKER) (test eegb=0501) 7.41 BLOOD GAS, [id number] 14:38:00 Test Item Value Reference Range Comments PH ARTERIAL (BEAKER) (test mhgb=055) 7.42 7.35-7.45 PCO2 ARTERIAL (BEAKER) (test nlte=011) 41 mmHg 35-45 PO2 ARTERIAL (BEAKER) (test czwp=751) 144 mmHg 80-90 O2 SATURATION ARTERIAL (BEAKER) (test izvu=517) 98.9 % 96.0-97.0 HCO3 ARTERIAL (BEAKER) (test gmea=230) 26 mmol/L 21-29 BASE EXCESS ARTERIAL (BEAKER) (test ddtl=051) 1.2 mmol/L -2.0-3.0 PATIENT TEMPERATURE (BEAKER) (test uupf=0921) 36.0 C FIO2 (BEAKER) (test znzk=3983) 100.0 % GLUCOSE-STAT [id number] 14:38:00 Test Item Value Reference Range Comments GLUCOSE RANDOM (BEAKER) (test vmex=330) 127 mg/dL 70-110 SODIUM NA-STAT [id number] 14:38:00 Test Item Value Reference Range Comments SODIUM (BEAKER) (test mfdh=875) 133 meq/L 135-148 HGB/HCT (H&H) - STAT [id number] 14:38:00 Test Item Value Reference Range Comments HEMOGLOBIN (BEAKER) (test oral=804) 9.4 g/dL 13.0-16.8 HEMATOCRIT (BEAKER) (test pyhf=655) 28.0 % 40.0-50.0 CALCIUM, [id number] 12:06:00 Test Item Value Reference Range Comments CALCIUM IONIZED (BEAKER) (test ctpg=506) 1.10 mmol/L 1.12-1.27 PH, BLOOD (BEAKER) (test fesi=6572) 7.42 BLOOD GAS, [id number] 11:53:00 Test Item Value Reference Range Comments PH ARTERIAL (BEAKER) (test qeld=681) 7.45 7.35-7.45 PCO2 ARTERIAL (BEAKER) (test czga=799) 35 mmHg 35-45 PO2 ARTERIAL (BEAKER) (test ukst=141) 474 mmHg 80-90 O2 SATURATION ARTERIAL (BEAKER) (test yazm=488) 99.9 % 96.0-97.0 HCO3 ARTERIAL (BEAKER) (test hifu=847) 24 mmol/L 21-29 BASE EXCESS ARTERIAL (BEAKER) (test hdax=072) 0.2 mmol/L -2.0-3.0 PATIENT TEMPERATURE (BEAKER) (test xhtr=8365) 35.0 C FIO2 (BEAKER) (test crwf=1033) 90.0 % HGB/HCT (H&H) - STAT [id number] 11:53:00 Test Item Value Reference Range Comments HEMOGLOBIN (BEAKER) (test mjvo=052) 16.8 g/dL 13.0-16.8 HEMATOCRIT (BEAKER) (test auvy=583) 49.0 % 40.0-50.0 GLUCOSE-STAT [id number] 11:52:00 Test Item Value Reference Range Comments GLUCOSE RANDOM (BEAKER) (test dkqc=858) 107 mg/dL 70-110 SODIUM NA-STAT [id number] 11:52:00 Test Item Value Reference Range Comments SODIUM (BEAKER) (test gxqh=712) 135 meq/L 135-148 POTASSIUM-STAT [id number] 11:52:00 Test Item Value Reference Range Comments POTASSIUM (BEAKER) (test ctuu=259) 3.7 meq/L 3.6-5.5 CBC W/PLT COUNT & AUTO [id number] 11:59:00 Test Item Value Reference Range Comments WHITE BLOOD CELL COUNT (BEAKER) (test wvkn=570) 6.0 K/ L 3.5-10.5 RED BLOOD CELL COUNT (BEAKER) (test mfwb=057) 3.80 M/ L 4.63-6.08 HEMOGLOBIN (BEAKER) (test lmlx=029) 10.9 GM/DL 13.7-17.5 HEMATOCRIT (BEAKER) (test xopv=034) 34.5 % 40.1-51.0 MEAN CORPUSCULAR VOLUME (BEAKER) (test jbyu=618) 90.8 fL 79.0-92.2 MEAN CORPUSCULAR HEMOGLOBIN (BEAKER) (test 28.7 pg 25.7-32.2 ftyq=240) MEAN CORPUSCULAR HEMOGLOBIN CONC (BEAKER) (test 31.6 GM/DL 32.3-36.5 jatn=265) RED CELL DISTRIBUTION WIDTH (BEAKER) (test 16.8 % 11.6-14.4 gakk=803) PLATELET COUNT (BEAKER) (test sirn=783) 98 K/CU MM 150-450 MEAN PLATELET VOLUME (BEAKER) (test kxyl=443) 11.3 fL 9.4-12.4 NUCLEATED RED BLOOD CELLS (BEAKER) (test 0 /100 WBC 0-0 ykao=873) NEUTROPHILS RELATIVE PERCENT (BEAKER) (test 61 % ccmg=916) LYMPHOCYTES RELATIVE PERCENT (BEAKER) (test 17 % nzzx=027) MONOCYTES RELATIVE PERCENT (BEAKER) (test 15 % huus=259) EOSINOPHILS RELATIVE PERCENT (BEAKER) (test 6 % seik=952) BASOPHILS RELATIVE PERCENT (BEAKER) (test 1 % fbbs=599) NEUTROPHILS ABSOLUTE COUNT (BEAKER) (test 3.65 K/ L 1.78-5.38 jdkz=170) LYMPHOCYTES ABSOLUTE COUNT (BEAKER) (test 1.01 K/ L 1.32-3.57 ting=773) MONOCYTES ABSOLUTE COUNT (BEAKER) (test oopq=917) 0.89 K/ L 0.30-0.82 EOSINOPHILS ABSOLUTE COUNT (BEAKER) (test 0.38 K/ L 0.04-0.54 zdxw=639) BASOPHILS ABSOLUTE COUNT (BEAKER) (test ocsn=845) 0.04 K/ L 0.01-0.08 IMMATURE GRANULOCYTES-RELATIVE PERCENT (BEAKER) 0 % 0-1 (test iuzp=0051) B-TYPE NATRIURETIC FACTOR (BNP)2017-09-17 11:33:00 Test Item Value Reference Range Comments B-TYPE NATRIURETIC PEPTIDE (BEAKER) (test 489 pg/mL 0-100 rwqt=827) BASIC METABOLIC [id number] 11:25:00 Test Item Value Reference Range Comments SODIUM (BEAKER) (test 138 meq/L 136-145 dhjq=661) POTASSIUM (BEAKER) (test 3.9 meq/L 3.5-5.1 gcvx=487) CHLORIDE (BEAKER) (test 107 meq/L 98-107 jcge=839) CO2 (BEAKER) (test 24 meq/L 22-29 ivjx=926) BLOOD UREA NITROGEN 16 mg/dL 7-21 (BEAKER) (test wynw=465) CREATININE (BEAKER) (test 0.87 mg/dL 0.57-1.25 kbfp=338) GLUCOSE RANDOM (BEAKER) 127 mg/dL 70-105 (test nixf=059) CALCIUM (BEAKER) (test 9.2 mg/dL 8.4-10.2 telm=521) EGFR (BEAKER) (test 85 mL/min/1.73 sq m ESTIMATED GFR IS NOT agdu=2375) ACCURATE CREATININE CLEARANCE IN PREDICTING GLOMERULAR FILTRATION RATE. ESTIMATED GFR IS NOT APPLICABLE FOR DIALYSIS PATIENTS. [id number] 11:25:00 Test Item Value Reference Range Comments ALBUMIN (BEAKER) (test iyna=3756) 3.3 g/dL 3.5-5.0 [id number] 11:22:00 Test Item Value Reference Range Comments PROTIME (BEAKER) (test znrp=167) 15.1 seconds 11.7-14.7 INR (BEAKER) (test pqdy=001) 1.2 <=5.9 PARTIAL THROMBOPLASTIN TIME (BEAKER) (test 30.4 seconds 22.5-36.0 wfkh=040) RECOMMENDED COUMADIN/WARFARIN INR THERAPY RANGESSTANDARD DOSE: 2.0 - 3.0 Includes: PROPHYLAXIS forvenous thrombosis, systemic embolization; TREATMENT for venous thrombosis and/or pulmonary embolus.HIGH RISK: Target INR is 2.5-3.5 for patients with mechanical heart valves.ANG, NEPHROSTOMY, PERC, EXTERNAL [id number] 18:01:00Reason for Exam:->n13.2, n20.0FINAL REPORT Fluoroscopic guided right nephrostomy tube placement, 09/11/2017. Clinical History: Right hydronephrosis, obstructing ureteral stone. Modality: Sonography and fluoroscopy Development Officer: Uriha Johnston MD. Oven Dumper: Tom Taylor MD. Sedation: Versed 1.0 mg and fentanyl 50 mcg was given intravenously for conscious sedation. Vital signs were monitoredthroughout the procedure by a nurse, and remained stable. Physician intra-service time was 35 minutes. Estimated Blood Loss: Less than 5 cc. Specimen: None. Fluoroscopy Time: 9.8 min.Reference Air Kerma (Ka, r): 13.8 mGy. Technique: R scrub IR Prep Local anesthesia was achieved with 1% lidocaine , the right lower pole calyx was visualized with ultrasound. Using ultrasound guidance, a 21-gauge Accustick needle was advanced into the calyx. Contrast injection confirmed placement within the calyx. A 0.018 inch wire was advanced through the needle a curled within the pelvis.The Accustick sheath wasadvanced over the wire and into the renal pelvis. We attempted to use a Berenstein catheter and Glidewire combination to navigate down the ureter but could not cross the obstructing stone within the proximal ureter. The decision was made to place a nephrostomy catheter and separator right nephroureteral stent. After a small skin incision was made, the soft tissue tract was dilated to 8 Afghan. A 8.5 Afghan drainage catheter was placed into the right renal pelvis. The wire was then removed, and the pigtail of the catheter was locked. The catheter was then secured onto the skin with 2-0 Prolene. Thepatient tolerated the procedure well, without immediate complications. The patient's vital signs remained stable throughout the procedure. Patient disposition: The patient was discharged from the department in stable condition. Impression:Successful and uncomplicated fluoroscopic guided right nephrostomy tube placement. Signed: Uriah Johnston Verified Date/Time: 09/12/2017 18:01:37 Reading Location: [place] [address] Ang[facility] Reading Room [id number] 06:17:00 Test Item Value Reference Range Comments PROTIME (BEAKER) (test icfm=344) 14.8 seconds 11.7-14.7 INR (BEAKER) (test hbuy=871) 1.2 <=5.9 PARTIAL THROMBOPLASTIN TIME (BEAKER) (test 31.4 seconds 22.5-36.0 twlx=217) RECOMMENDED COUMADIN/WARFARIN INR THERAPY RANGESSTANDARD DOSE: 2.0 - 3.0 Includes: PROPHYLAXIS forvenous thrombosis, systemic embolization; TREATMENT for venous thrombosis and/or pulmonary embolus.HIGH RISK: Target INR is 2.5-3.5 for patients with mechanical heart valves.PLATELET [id number] 06:09:00 Test Item Value Reference Range Comments PLATELET COUNT (BEAKER) (test uvlx=294) 111 K/CU MM 150-450 BASIC METABOLIC [id number] 10:17:00 Test Item Value Reference Range Comments SODIUM (BEAKER) (test 138 meq/L 136-145 sfuo=703) POTASSIUM (BEAKER) (test 4.2 meq/L 3.5-5.1 yepo=117) CHLORIDE (BEAKER) (test 105 meq/L 98-107 vvsd=878) CO2 (BEAKER) (test 24 meq/L 22-29 eurw=346) BLOOD UREA NITROGEN 13 mg/dL 7-21 (BEAKER) (test bwim=177) CREATININE (BEAKER) (test 0.86 mg/dL 0.57-1.25 efys=956) GLUCOSE RANDOM (BEAKER) 117 mg/dL 70-105 (test nrof=855) CALCIUM (BEAKER) (test 9.3 mg/dL 8.4-10.2 tsvs=709) EGFR (BEAKER) (test 86 mL/min/1.73 sq m ESTIMATED GFR IS NOT vglf=4440) ACCURATE CREATININE CLEARANCE IN PREDICTING GLOMERULAR FILTRATION RATE. ESTIMATED GFR IS NOT APPLICABLE FOR DIALYSIS PATIENTS. CBC W/PLT COUNT & AUTO [id number] 09:49:00 Test Item Value Reference Range Comments WHITE BLOOD CELL COUNT (BEAKER) (test uzny=239) 7.0 K/ L 3.5-10.5 RED BLOOD CELL COUNT (BEAKER) (test nuvt=468) 3.93 M/ L 4.63-6.08 HEMOGLOBIN (BEAKER) (test gsfv=736) 11.0 GM/DL 13.7-17.5 HEMATOCRIT (BEAKER) (test wjeq=804) 34.8 % 40.1-51.0 MEAN CORPUSCULAR VOLUME (BEAKER) (test jrll=490) 88.5 fL 79.0-92.2 MEAN CORPUSCULAR HEMOGLOBIN (BEAKER) (test 28.0 pg 25.7-32.2 kzum=872) MEAN CORPUSCULAR HEMOGLOBIN CONC (BEAKER) (test 31.6 GM/DL 32.3-36.5 tvdc=800) RED CELL DISTRIBUTION WIDTH (BEAKER) (test 17.4 % 11.6-14.4 svaq=066) PLATELET COUNT (BEAKER) (test pnis=251) 121 K/CU MM 150-450 MEAN PLATELET VOLUME (BEAKER) (test cbrj=932) 10.9 fL 9.4-12.4 NUCLEATED RED BLOOD CELLS (BEAKER) (test 0 /100 WBC 0-0 lury=188) NEUTROPHILS RELATIVE PERCENT (BEAKER) (test 64 % dfty=628) LYMPHOCYTES RELATIVE PERCENT (BEAKER) (test 13 % pkab=916) MONOCYTES RELATIVE PERCENT (BEAKER) (test 15 % nzvl=540) EOSINOPHILS RELATIVE PERCENT (BEAKER) (test 6 % hrem=459) BASOPHILS RELATIVE PERCENT (BEAKER) (test 1 % sokv=213) NEUTROPHILS ABSOLUTE COUNT (BEAKER) (test 4.51 K/ L 1.78-5.38 saak=491) LYMPHOCYTES ABSOLUTE COUNT (BEAKER) (test 0.93 K/ L 1.32-3.57 zlam=499) MONOCYTES ABSOLUTE COUNT (BEAKER) (test 1.06 K/ L 0.30-0.82 uutg=629) EOSINOPHILS ABSOLUTE COUNT (BEAKER) (test 0.41 K/ L 0.04-0.54 kxaf=455) BASOPHILS ABSOLUTE COUNT (BEAKER) (test 0.05 K/ L 0.01-0.08 dack=336) IMMATURE GRANULOCYTES-RELATIVE PERCENT (BEAKER) 1 % 0-1 (test heym=3880) CT, CTA, [id number] 16:05:00Addendum BeginsREPORT STATUS:A Addendum: I reviewed the images and the nonvascular findings enumerated by Dr. Espitia and tamanna. Paraseptal emphysematous changes are noted. The right lung base bronchi are slightly prominent without definite enlargement. There is a 1.2 cm stone inthe proximal to mid portion of the right ureter with associated moderately severe hydronephrosis. 19mm in diameter stone is noted in the right side of bladder near the junction of the distal ureter. Signed: London Dupree MDReport Verified Date/Time: 08/02/2017 16:05:09 Reading Location: [place] [address] Angio Body Reading RoomAddendum EndsFINAL REPORT CT angiography of the thoracoabdominal aorta and pelvic arteries , 02 August 2017 INDICATION: This is a [...] normal in calibre. The cardiac chamber demonstrate normalatrioventricular and ventriculoarterial concordance, systemic and pulmonary venous [...] 121. The right internal mammary artery is [place]. 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 Patient is post vascular graft placement inthe infrarenal abdominal aorta, and this graft is widely patent with no anastomotic stenosis or extravasation of contrast identified, and the pelvic arteries are seen to be [place], with calcific atherosclerosis identified. See below for [...] calcific atherosclerosis identified proximally, with moderate to significantfocal lesion identified though the hepatic and splenic [...] mm2. The aortic annulus diameter at the traditionalLVOT and coronal LVOT measures 20.4 and 22.3 mm, respectively. For reference purpose, per B[facility] [id number], recommendation are as follows: CT area between 273 to 345 mm2 (20 mm valve); 338 to 430 mm2 ( 23 mm valve); 430 to 546 mm2 (26 [...] of the coronary artery, RCC (diastole): 10.7 mmThe sinus of Valsalva height to the takeoffof the coronary artery, LCC ( diastole): 11.1 mm The most inferior bypass graft origin is approximately 4.9 cm from the aortic annulus. The sinus of Valsalva diameter, RCC (diastole): 29.6 mmThe sinus of Valsalva diameter, LCC (diastole): 30.8 mmThe sinus of Valsalva diameter, NCC (diastole): 29.1 mm The sinotubular junction measures approximately 25.4 x 24.7 mm. The aortic root angulation measures 47.7 degrees. The angle of delivery is approximately [place] 2 CAU 5. A vascular graft is seen in the infrarenal abdominal aorta. The minimum and the perpendicular left common iliac artery measures 7.7 and 8.1 mm, respectively with rztr-cj-hehxqslb tortuosity and moderate calcific atherosclerosis present. The [...] femoral artery measures 4.5 and 7.6 mm, respectivelywith mild tortuosity and mdqh-op-fatqhdek focal calcific atherosclerosis present. NONVASCULAR: Thevisualised thyroid gland appears unremarkable. The chest wall [...] windows, no obvious endobronchial lesion is seen andno pleural effusion is identified. Paraseptal emphysematous changes are seen. There could be minimalbronchiectatic changes identified, especially in the right base. [...] hydronephrosis identified in the right kidney, and astone is identified in the juncture of the [...] Patient has a diagnosis of aortic stenosis. Aorticvalve is tricuspid. Agatston score is approximately 1980. [...] An addendum will be dictated by the Standard [employer] Stitcher Radiologist regarding the nonvascular findings. Signed: Basilio Treadwell MDReport Verified Date/Time: 08/02/2017 15:10:05 Reading Location: [place] [address], CTA [id number] 16:05:00Addendum BeginsREPORT STATUS:A Addendum: I reviewed the images and the nonvascular findings enumerated by Dr. Espitia and tamanna. Paraseptal emphysematous changes are noted. The right lung base bronchi are slightly prominent without definite enlargement. There is a 1.2 cm stone inthe proximal to mid portion of the right ureter with associated moderately severe hydronephrosis. 19mm in diameter stone is noted in the right side of bladder near the junction of the distal ureter. Signed: London Dupree MDReport Verified Date/Time: 08/02/2017 16:05:09 Reading Location: [place] [address] Angio Body Reading RoomAddendum EndsFINAL REPORT CT angiography of the thoracoabdominal aorta [...] normal in calibre. The cardiac chamber demonstrate normalatrioventricular and ventriculoarterial concordance, systemic and pulmonary venous [...] 121. The right internal mammary artery is [place]. 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 Patient is post vascular graft placement inthe infrarenal abdominal aorta, and this graft is widely patent with no anastomotic stenosis or extravasation of contrast identified, and the pelvic arteries are seen to be [place], with calcific atherosclerosis identified. See below for [...] calcific atherosclerosis identified proximally, with moderate to significantfocal lesion identified though the hepatic and splenic [...] annulus perimeter measured 73 mm and the cross- sectional area measures 406 mm2. The aortic annulus diameter at the traditionalLVOT and coronal LVOT measures 20.4 and 22.3 mm, respectively. For reference purpose, per [place] [id number], recommendation are as follows: CT area between 273 to 345 mm2 (20 mm valve); 338 to 430 mm2 (23 mm valve); 430 to 546 mm2 (26 mm valve); 540 to 683 mm2 (29 mm valve). For reference purpose, per [employer] brochure, recommendation are as follows: CT perimeter between 56.5-62.8 mm (23 mm valve); 62.8-72.3 mm (26 mm valve); 72.3-81.7 mm ( 29 mm valve); and 81.7-94.2. mm (34 mm valve). Agatston Score is 1980. Aortic valve area is approximately 83 sq mm. The sinus of Valsalva height to the takeoff of the coronary artery, RCC (diastole): 10.7 mmThe sinus of Valsalva height to the takeoffof the coronary artery, LCC (diastole): 11.1 mm The most inferior bypass graft origin is approximately 4.9 cm from the aortic annulus. The sinus of Valsalva diameter, RCC (diastole): 29.6 mmThe sinus of Valsalva diameter, LCC (diastole): 30.8 mmThe sinus of Valsalva diameter, NCC (diastole) : 29.1 mm The sinotubular junction measures approximately 25.4 x 24.7 mm. The aortic root angulation measures 47.7 degrees. The angle of delivery is approximately [place] 2 CAU 5. A vascular graft is seen in the infrarenal abdominal aorta. The minimum and the perpendicular left common iliac artery measures 7.7 and 8.1 mm, respectively with [id number] tortuosity and moderate calcific atherosclerosis present. The [...] femoral artery measures 4.5 and 7.6 mm, respectivelywith mild tortuosity and [id number] focal calcific atherosclerosis present. NONVASCULAR: Thevisualised thyroid gland appears unremarkable. The chest wall [...] windows, no obvious endobronchial lesion is seen andno pleural effusion is identified. Paraseptal emphysematous changes are seen. There could be minimalbronchiectatic changes identified, especially in the right base. [...] hydronephrosis identified in the right kidney, and astone is identified in the juncture of the [...] Patient has a diagnosis of aortic stenosis. Aorticvalve is tricuspid. Agatston score is approximately 1980. [...] An addendum will be dictated by the Standard Machine Stitcher Radiologist regarding the nonvascular findings. Signed: Basilio Treadwell MDReport Verified Date/Time: 08/02/2017 15:10:05 Reading Location: [place] [address] Cardiology MRI [id number] 12:32:00 Test Item Value Reference Range Comments POC-CREATININE (PARISAAKER) 0.9 mg/dL 0.6-1.3 TESTED AT [facility] [address] [place] (test mfoj=[id number]) [facility] [address] POC-EGFR (BEAKER) (test 82 mL/min/1.73M2 czfx=[id number])
--- NOTE | 2018-02-10 23:53 | ER ---
Nurse's Notes [facility] Name: Manfred Mathews Age: 77 yrs Sex: Male : 1940 Arrival Date: 02/10/2018 Time: 23:28 Bed 20 Private MD: Precious Garcia R Diagnosis: Retention of urine Presentation: 02/10 23:41 Presenting complaint: Patient states: he had surgery this morning at [facility] for gallstone and kidney stone at which time he was unable to urinate so they placed a bhatti catheter which he accidently removed tonight he has not had to urinate since then. Transition of care: patient was not received from another setting of care. Onset of symptoms was February 10, 2018. Risk Assessment: Do you want to hurt yourself or someone else? Patient reports no desire to harm self or others. Initial Sepsis Screen: Does the patient meet any 2 criteria? No. Patient's initial sepsis screen is negative. Does the patient have a suspected source of infection? No. Patient's initial sepsis screen is negative. Care prior to arrival: None. 23:41 Method Of Arrival: Ambulatory bb 23:41 Acuity: MARISOL 5 bb Historical: - Allergies: 23:47 No Known Allergies; bb - Home Meds: 23:47 aspirin 81 mg Oral chew 1 tab once daily [Active]; nitrofurantoin macrocrystal 100 mg bb Oral cap 1 cap twice a day [Active]; oxybutynin chloride 5 mg Oral tab 1 tab 3 times per day [Active]; cetirizine 10 mg oral chew 1 tab once daily [Active]; clopidogrel 75 mg oral tab 1 tab once daily [Active]; docusate sodium 100 mg Oral tab 1 tab 2 times per day [Active]; fluticasone inhalation inhalation 1 puff daily [Active]; Lactobacillus acidophilus oral oral [Active]; lisinopril 5 mg Oral tab 1 tab twice a day [Active]; rosuvastatin 5 mg oral tab 1 tab once daily [Active]; Bactrim DS 800-160 mg Oral tab 1 tab 2 times per day [Active]; tamsulosin 0.4 mg oral cp24 1 cap once daily [Active]; - PMHx: 23:47 Hypertension; Hyperlipidemia; CAD; gallstones; Kidney stones; bb - PSHx: 23:47 Carotid surgery; CABG; heart valve replacement; gallstone removal; kidney stone removal;bb - Immunization history:: Adult Immunizations up to date. - Ebola Screening: : No symptoms or risks identified at this time. - Social history:: Smoking status: unknown. Screenin/11 00:07 Abuse screen: Denies threats or abuse. Nutritional screening: No deficits noted. jd3 Tuberculosis screening: No symptoms or risk factors identified. Fall Risk Ambulatory Aid- None/Bed Rest/Nurse Assist (0 pts). Gait- Normal/Bed Rest/Wheelchair (0 pts) Mental Status- Oriented to own ability (0 pts). Total Lama Fall Scale indicates No Risk (0-24 pts). Assessment: 00:06 General: Appears in no apparent distress. uncomfortable, Behavior is calm, cooperative, jd3 appropriate for age. Pain: Complains of pain in groin Quality of pain is described as aching. Neuro: Level of Consciousness is awake, alert, obeys commands, Oriented to person, place, time, situation. Cardiovascular: Denies chest pain, Capillary refill < 3 seconds Patient's skin is warm and dry. Respiratory: Airway is patent Respiratory effort is even, unlabored, Respiratory pattern is regular, symmetrical, Denies shortness of breath. GI: No signs and/or symptoms were reported involving the gastrointestinal system. : Reports inability to void. EENT: No signs and/or symptoms were reported regarding the EENT system. Derm: Skin is intact, Skin is dry, Skin is normal, Skin temperature is warm. Musculoskeletal: Circulation, motion, and sensation intact. Range of motion: intact in all extremities. 00:22 Reassessment: Patient appears in no apparent distress at this time. Patient and/or jd3 family updated on plan of care and expected duration. Pain level reassessed. Patient is alert, oriented x 3, equal unlabored respirations, skin warm/dry/pink. Patient states feeling better. Vital Signs: 02/10 23:47 BP 132 / 58; Pulse 72; Resp 18 S; Temp 98.2(O); Pulse Ox 98% on R/A; Weight 87.09 kg bb (R); Height 5 ft. 5 in. (165.10 cm) (R); Pain 0/10; 23:47 Body Mass Index 31.95 (87.09 kg, 165.10 cm) kaushal ED Course: 23:28 Patient arrived in ED. am2 23:29 Precious Garcia MD is Private Physician. am2 23:36 Dominic Brown PA is PHCP. jr8 23:36 Alexandro Barrios MD is Attending Physician. jr8 23:43 Triage completed. bb 23:47 Arm band placed on Patient placed in an exam room, on a stretcher, on pulse oximetry. kaushal Family accompanied patient. 02/11 00:06 Jorge Mesa, RN is Primary Nurse. jd3 00:08 Patient has correct armband on for positive identification. Bed in low position. Call jd3 light in reach. Side rails up X 1. Adult w/ patient. 00:08 No provider procedures requiring assistance completed. Patient did not have IV access jd3 during this emergency room visit. 00:22 Bhatti cath inserted, using sterile technique, 16 Fr., by pa, balloon inflated, to jd3 gravity drainage, Patient tolerated well. Administered Medications: No medications were administered Outcome: 02/10 23:53 Discharge ordered by . jr8 02/11 00:22 Discharged to home ambulatory, with family. jd3 Condition: stable Discharge instructions given to patient, Instructed on discharge instructions, follow up and referral plans. Demonstrated understanding of instructions, follow-up care. 00:23 Patient left the ED. jd3 Signatures: Sonia Greer, RN RN Dominic Vernon PA PA jr8 Chiara Gamboa am2 Jorge Mesa, RAMOS BEASLEY jd3
--- NOTE | 2018-02-10 23:53 | EDPHYS ---
Physician Documentation [facility] Name: Manfred Mathews Age: 77 yrs Sex: Male : 1940 Arrival Date: 02/10/2018 Time: 23:28 Bed 20 Private MD: Precious Garcia R ED Physician Alexandro Barrios HPI: 02/10 23:51 This 77 yrs old Male presents to ER via Ambulatory with complaints of Urinary jr8 Retention. 23:51 The patient presents with a Covarrubias catheter problem, was pulled out accidentally. Onset: jr8 The symptoms/episode began/occurred acutely, today. Modifying factors: The symptoms are alleviated by nothing, the symptoms are aggravated by nothing. Associated signs and symptoms: The patient has no apparent associated signs or symptoms. Severity of symptoms: At their worst the symptoms were mild, in the emergency department the symptoms are unchanged. The patient has not experienced similar symptoms in the past. The patient has been recently seen by a physician:. Had recent surgery and could not urinate afterwards. Accidently pulled Covarrubias out tonight. Still cannot urinate . Historical: - Allergies: 23:47 No Known Allergies; bb - Home Meds: 23:47 aspirin 81 mg Oral chew 1 tab once daily [Active]; nitrofurantoin macrocrystal 100 mg bb Oral cap 1 cap twice a day [Active]; oxybutynin chloride 5 mg Oral tab 1 tab 3 times per day [Active]; cetirizine 10 mg oral chew 1 tab once daily [Active]; clopidogrel 75 mg oral tab 1 tab once daily [Active]; docusate sodium 100 mg Oral tab 1 tab 2 times per day [Active]; fluticasone inhalation inhalation 1 puff daily [Active]; Lactobacillus acidophilus oral oral [Active]; lisinopril 5 mg Oral tab 1 tab twice a day [Active]; rosuvastatin 5 mg oral tab 1 tab once daily [Active]; Bactrim DS 800-160 mg Oral tab 1 tab 2 times per day [Active]; tamsulosin 0.4 mg oral cp24 1 cap once daily [Active]; - PMHx: 23:47 Hypertension; Hyperlipidemia; CAD; gallstones; Kidney stones; bb - PSHx: 23:47 Carotid surgery; CABG; heart valve replacement; gallstone removal; kidney stone removal;bb - Immunization history:: Adult Immunizations up to date. - Ebola Screening: : No symptoms or risks identified at this time. - Social history:: Smoking status: unknown. ROS: 23:51 Eyes: Negative for injury, pain, redness, and discharge, ENT: Negative for injury, jr8 pain, and discharge, Neck: Negative for injury, pain, and swelling, Cardiovascular: Negative for chest pain, palpitations, and edema, Respiratory: Negative for shortness of breath, cough, wheezing, and pleuritic chest pain, Abdomen/GI: Negative for abdominal pain, nausea, vomiting, diarrhea, and constipation, Back: Negative for injury and pain, MS/Extremity: Negative for injury and deformity, Skin: Negative for injury, rash, and discoloration, Neuro: Negative for headache, weakness, numbness, tingling, and seizure. 23:51 : Positive for difficulty urinating. Exam: 23:51 Cardiovascular: Regular rate and rhythm with a normal S1 and S2. No gallops, murmurs, jr8 or rubs. Normal PMI, no JVD. No pulse deficits. Respiratory: Lungs have equal breath sounds bilaterally, clear to auscultation and percussion. No rales, rhonchi or wheezes noted. No increased work of breathing, no retractions or nasal flaring. Abdomen/GI: Soft, non-tender, with normal bowel sounds. No distension or tympany. No guarding or rebound. No evidence of tenderness throughout. Back: No spinal tenderness. No costovertebral tenderness. Full range of motion. Skin: Warm, dry with normal turgor. Normal color with no rashes, no lesions, and no evidence of cellulitis. MS/ Extremity: Pulses equal, no cyanosis. Neurovascular intact. Full, normal range of motion. Neuro: Awake and alert, GCS 15, oriented to person, place, time, and situation. Cranial nerves II-XII grossly intact. Motor strength 5/5 in all extremities. Sensory grossly intact. Cerebellar exam normal. Normal gait. Vital Signs: 23:47 BP 132 / 58; Pulse 72; Resp 18 S; Temp 98.2(O); Pulse Ox 98% on R/A; Weight 87.09 kg bb (R); Height 5 ft. 5 in. (165.10 cm) (R); Pain 0/10; 23:47 Body Mass Index 31.95 (87.09 kg, 165.10 cm) kaushal MDM: 23:36 Patient medically screened. jr8 23:51 Data reviewed: vital signs, nurses notes, and as a result, I will discharge patient. jr8 Data interpreted: Pulse oximetry: on room air is 98 %. Interpretation: normal. Counseling: I had a detailed discussion with the patient and/or guardian regarding: the historical points, exam findings, and any diagnostic results supporting the discharge/admit diagnosis, the need for outpatient follow up, a urologist, to return to the emergency department if symptoms worsen or persist or if there are any questions or concerns that arise at home. Response to treatment: the patient's symptoms have resolved after treatment. 02/11 00:08 Order name: Covarrubias Leg Bag; Complete Time: 00:08 jd3 Administered Medications: No medications were administered Disposition: 02/11 09:23 Co-signature as Attending Physician, Alexandro Barrios MD I agree with the assessment and oneil plan of care. Disposition: 02/10/18 23:53 Discharged to Home. Impression: Retention of urine. - Condition is Stable. - Discharge Instructions: Covarrubias Catheter Care, Adult, Acute Urinary Retention, Male. - Medication Reconciliation Form, Thank You Letter, Antibiotic Education, Prescription Opioid Use form. - Follow up: Private Physician; When: 2 - 3 days; Reason: Recheck today's complaints, Continuance of care, Re-evaluation by your physician. - Problem is new. - Symptoms are resolved. Signatures: Alexandro Barrios MD MD cha Ballard, Brenda, RN RN Dominic Vernon PA PA jr8 Jorge Mesa RN RN jd3 Corrections: (The following items were deleted from the chart) 00:23 0910 23:53 02/10/2018 23:53 Discharged to Home. Impression: Retention of urine. jd3 Condition is Stable. Forms are Medication Reconciliation Form, Thank You Letter, Antibiotic Education, Prescription Opioid Use. Follow up: Private Physician; When: 2 - 3 days; Reason: Recheck today's complaints, Continuance of care, Re-evaluation by your physician. Problem is new. Symptoms are resolved. jr8
[2018-02-10] MEDS ORDERED: LIDOCAINE VISCOUS 2% SOLN 15 ML UDC ONE (23:56)
[2018-02-11 01:52] VITALS: BP 132/58; TEMP 98.2; O2SAT 98
== END 2018-02-11 00:23 | disposition home or self-care (01) ==
LOC: ER 23:27
DX: R33.9 Retention of urine, unspecified (principal); I10 Essential (primary) hypertension; E78.5 Hyperlipidemia, unspecified; Z79.82 Long term (current) use of aspirin; Z95.1 Presence of aortocoronary bypass graft; Z95.4 Presence of other heart-valve replacement
CPT/HCPCS: 51702; 99284

== ENCOUNTER 2018-02-11 23:16 | Inpatient (IN) | payer OTHER ==
[2018-02-12] MEDS ORDERED: NA CHLORIDE 0.9% 1,000 ML ONE ×2 (00:42→06:17)
[2018-02-12 01:15] LABS: Absolute Lymphocytes (CBC) 1.1 K/uL (0.7-4.9); Absolute Monocytes 1.9 K/uL (0.1-1.3); Absolute Neutrophil 11.5 K/uL (1.8-8.0); Basophils % 0.3 % (0-1.3); Eosinophils % 0.6 % (0-4.4); Lymphocytes % 7.8 % (15.3-44.8); MCV 88.2 fL (80-100); MPV 9.2 fL (7.6-11.3); Monocytes % 13.1 % (3.3-12.3); RBC Red Blood Cell Count 3.63 M/uL (4.33-5.43)
[2018-02-12 01:18] LABS: Protime INR 1.2
[2018-02-12 01:30] LABS: ALT/SGPT 20 U/L (12-78); AST/SGOT 30 U/L (15-37); Albumin 2.6 g/dL (3.4-5.0); Alkaline Phosphatase 100 U/L (45-117); BUN Blood Urea Nitrogen 29 mg/dL (7-18); Bicarbonate 22 mmol/L (21-32); Bilirubin Direct 0.2 mg/dL (0-0.2); Bilirubin Total 0.6 mg/dL (0.2-1.0); CKMB Creatine Kinase MB < 1.0 ng/mL (0.3-3.6); Creatine Phosphokinase 84 U/L (39-308); Glucose Level 140 mg/dL (74-106); NT PRO-BNP 655 pg/mL (<450); Potassium 4.3 mmol/L (3.5-5.1); Protein, Total 7.1 g/dL (6.4-8.2); Sodium Level 134 mmol/L (136-145)
[2018-02-12 02:17] LABS: Urine Culture Reflex Order NOT NEEDED
[2018-02-12 02:18] LABS: Urine Bacteria 20-50 /HPF (NONE SEEN)
[2018-02-12 02:19] LABS: Urine RBC 20-50 /HPF (NONE SEEN)
--- NOTE | 2018-02-12 02:23 | EDPHYS ---
Physician Documentation [facility] Name: Manfred Mathews Age: 77 yrs Sex: Male : 1940 Arrival Date: 02/11/2018 Time: 23:17 Bed 24 Private MD: ED Physician Aki Sweet HPI: 02/12 00:25 This 77 yrs old Male presents to ER via Wheelchair with complaints of Low pkl Blood Pressure. 00:25 The patient reports fever, that was measured at 101 degrees Fahrenheit. Onset: The pkl symptoms/episode began/occurred today. Associated signs and symptoms: Pertinent positives: Low blood pressure and feeling weak. 00:25 Patient said he had a 4 hours surgery on his right kidney for removal of kidney stones. pkl Historical: - Allergies: 02/11 23:49 No Known Allergies; mg2 - Home Meds: 23:49 aspirin 81 mg Oral chew 1 tab once daily [Active]; Bactrim DS 800-160 mg Oral tab 1 tab mg2 2 times per day [Active]; cetirizine 10 mg Oral chew 1 tab once daily [Active]; docusate sodium 100 mg Oral tab 1 tab 2 times per day [Active]; fluticasone inhalation 1 puff daily [Active]; Lactobacillus acidophilus Oral [Active]; lisinopril 5 mg Oral tab 1 tab twice a day [Active]; nitrofurantoin macrocrystal 100 mg Oral cap 1 cap twice a day [Active]; oxybutynin chloride 5 mg Oral tab 1 tab 3 times per day [Active]; rosuvastatin 5 mg Oral tab 1 tab once daily [Active]; tamsulosin 0.4 mg Oral cp24 1 cap once daily [Active]; - PMHx: 23:49 CAD; GALLSTONES; Hyperlipidemia; Hypertension; Kidney stones; mg2 - PSHx: 23:49 renal stone removal- feb 10, 2018; heart valve repair; mg2 - Immunization history:: Flu vaccine is not up to date. - Social history:: Smoking status: Patient/guardian denies using tobacco, Patient/guardian denies using alcohol, street drugs, IV drugs. - Ebola Screening: : No symptoms or risks identified at this time. ROS: 02/12 00:25 Eyes: Negative for injury, pain, redness, and discharge, ENT: Negative for injury, pkl pain, and discharge, Neck: Negative for injury, pain, and swelling, Cardiovascular: Negative for chest pain, palpitations, and edema, Respiratory: Negative for shortness of breath, cough, wheezing, and pleuritic chest pain, Abdomen/GI: Negative for abdominal pain, nausea, vomiting, diarrhea, and constipation, Back: Negative for injury and pain, : Negative for injury, bleeding, discharge, and swelling, MS/Extremity: Negative for injury and deformity, Skin: Negative for injury, rash, and discoloration, Neuro: Negative for headache, weakness, numbness, tingling, and seizure. Exam: 00:31 Head/Face: Normocephalic, atraumatic. Eyes: Pupils equal round and reactive to light, pkl extra-ocular motions intact. Lids and lashes normal. Conjunctiva and sclera are non-icteric and not injected. Cornea within normal limits. Periorbital areas with no swelling, redness, or edema. ENT: Nares patent. No nasal discharge, no septal abnormalities noted. Tympanic membranes are normal and external auditory canals are clear. Oropharynx with no redness, swelling, or masses, exudates, or evidence of obstruction, uvula midline. Mucous membranes moist. Neck: Trachea midline, no thyromegaly or masses palpated, and no cervical lymphadenopathy. Supple, full range of motion without nuchal rigidity, or vertebral point tenderness. No Meningismus. Chest/axilla: Normal chest wall appearance and motion. Nontender with no deformity. No lesions are appreciated. Cardiovascular: Regular rate and rhythm with a normal S1 and S2. No gallops, murmurs, or rubs. Normal PMI, no JVD. No pulse deficits. Respiratory: Lungs have equal breath sounds bilaterally, clear to auscultation and percussion. No rales, rhonchi or wheezes noted. No increased work of breathing, no retractions or nasal flaring. Abdomen/GI: Soft, non-tender, with normal bowel sounds. No distension or tympany. No guarding or rebound. No evidence of tenderness throughout. Back: No spinal tenderness. No costovertebral tenderness. Full range of motion. Skin: Warm, dry with normal turgor. Normal color with no rashes, no lesions, and no evidence of cellulitis. MS/ Extremity: Pulses equal, no cyanosis. Neurovascular intact. Full, normal range of motion. Neuro: Awake and alert, GCS 15, oriented to person, place, time, and situation. Cranial nerves II-XII grossly intact. Motor strength 5/5 in all extremities. Sensory grossly intact. Cerebellar exam normal. Normal gait. Vital Signs: 02/11 23:49 BP 104 / 44; Pulse 88; Resp 18; Temp 98.7; Pulse Ox 100% on R/A; Weight 87.09 kg; mg2 Height 5 ft. 5 in. (165.10 cm); Pain 07/13; 02/12 01:50 BP 119 / 57; Pulse 91; Resp 18; Pulse Ox 98% on R/A; mg2 04:10 BP 119 / 57; Pulse 90; Resp 18; Pulse Ox 96% on R/A; bb 05:43 BP 122 / 54; Pulse 98; Resp 18 S; Temp 99.2(O); Pulse Ox 93% on R/A; bb 02/11 23:49 Body Mass Index 31.95 (87.09 kg, 165.10 cm) mg2 MDM: 00:11 Patient medically screened. pkl 02:19 Data reviewed: vital signs, nurses notes, lab test result(s), EKG, radiologic studies, pkl plain films. 02/12 00:20 Order name: Basic Metabolic Panel; Complete Time: 02:01 pkl 02/12 00:20 Order name: CBC with Diff; Complete Time: 02: pkl 02/12 00:20 Order name: Ckmb; Complete Time: 02: pkl 02/12 00:20 Order name: CPK; Complete Time: 02: pkl 02/12 00:20 Order name: LFT's; Complete Time: 02:01 pkl 02/12 00:20 Order name: Magnesium; Complete Time: 02:01 pkl 02/12 00:20 Order name: NT PRO-BNP; Complete Time: 02:01 pkl 02/12 00:20 Order name: PT-INR; Complete Time: 02: pkl 02/12 00:20 Order name: Ptt, Activated; Complete Time: 02:01 pkl 02/12 00:20 Order name: Troponin (emerg Dept Use Only); Complete Time: 02:01 pkl 02/12 00:20 Order name: Lactate; Complete Time: :20 pkl 02/12 00:20 Order name: Procalcitonin; Complete Time: 02:19 pkl 02/12 00:20 Order name: Blood Culture Adult (2) pkl 02/12 00:59 Order name: Urine Microscopic Only; Complete Time: 02:23 mg2 02/12 00:20 Order name: XRAY Chest (1 view) pkl 02/12 00:20 Order name: EKG; Complete Time: 00:21 pkl 02/12 00:20 Order name: Cardiac monitoring; Complete Time: 00:59 pkl 02/12 00:20 Order name: EKG - Nurse/Tech; Complete Time: 00:59 pkl 02/12 00:20 Order name: IV Saline Lock; Complete Time: 01:00 pk 02/12 00:20 Order name: Labs collected and sent; Complete Time: 01:00 pkl 02/12 00:20 Order name: O2 Per Protocol; Complete Time: 01:00 pkl 02/12 00:20 Order name: O2 Sat Monitoring; Complete Time: 01:00 pk 02/12 00:20 Order name: Urine Dipstick-Ancillary (obtain specimen); Complete Time: 01:00 pkl 02/12 00:59 Order name: Urine Culture mg2 02/12 01:01 Order name: Urine Dipstick--Ancillary (enter results) ms Administered Medications: 00:42 Drug: NS 0.9% 500 ml Route: IV; Rate: bolus; Site: right forearm; mg2 01:42 Follow up: IV Status: Completed infusion; IV Intake: 500ml bb 01:16 Drug: NS 0.9% 1000 ml Route: IV; Rate: 100 ml/hr; Site: right forearm; mg2 05:44 Follow up: IV Status: Completed infusion; IV Intake: 500ml bb Disposition: 02/12/18 02:23 Hospitalization ordered by Jeff Villagomez for Observation. Preliminary diagnosis is Fever. Urinary tract infection. Hypotension. S/P right kidney surgery. Elevated Troponin. - Bed requested for Telemetry/MedSurg (observation). - Status is Observation. ss - Condition is Stable. - Problem is new. - Symptoms have improved. UTI on Admission? Yes Signatures: Dispatcher [employer] Anneliese Mcgill RN RN dw Lam, Pin, MD MD pkl Solis, Maria ms Smirch, Shelby, RN RN ss Edu Cuadra RN RN mg2 Sonia Greer RN bb Corrections: (The following items were deleted from the chart) 05:39 02:23 Hospitalization Ordered by Jeff Villagomez MD for Observation. Preliminary ms diagnosis is Fever. Urinary tract infection. Hypotension. S/P right kidney surgery. Elevated Troponin. Bed requested for Telemetry/MedSurg (observation). Status is Observation. Condition is Stable. Problem is new. Symptoms have improved. UTI on Admission? Yes. pkl 07:43 05:39 02/12/2018 02:23 Hospitalization Ordered by Jeff Villagomez MD for Observation. dw Preliminary diagnosis is Fever. Urinary tract infection. Hypotension. S/P right kidney surgery. Elevated Troponin. Bed requested for [facility] ER HOLD. Status is Observation. Condition is Stable. Problem is new. Symptoms have improved. UTI on Admission? Yes. ms 08:32 07:43 02/12/2018 02:23 Hospitalization Ordered by Jeff Villagomez MD for Observation. ss Preliminary diagnosis is Fever. Urinary tract infection. Hypotension. S/P right kidney surgery. Elevated Troponin. Bed requested for Telemetry/MedSurg (observation). Status is Observation. Condition is Stable. Problem is new. Symptoms have improved. UTI on Admission? Yes. dw
--- NOTE | 2018-02-12 02:23 | ER ---
Nurse's Notes [facility] Name: Manfred Mathews Age: 77 yrs Sex: Male : 1940 Arrival Date: 02/11/2018 Time: 23:17 Bed 24 Private MD: Diagnosis: Fever. Urinary tract infection. Hypotension. S/P right kidney surgery. Elevated Troponin Presentation: 02/11 23:39 Presenting complaint: Patient states: he was having low blood pressure (94/44 mmHg), mg2 fatigability and weakness just few hours prior to arrival. he said he took his blood pressure medicine even the blood pressure is low. Transition of care: patient was not received from another setting of care. Onset of symptoms was February 11, 2018. Risk Assessment: Do you want to hurt yourself or someone else? Patient reports no desire to harm self or others. Initial Sepsis Screen: Does the patient meet any 2 criteria? No. Patient's initial sepsis screen is negative. Does the patient have a suspected source of infection? No. Patient's initial sepsis screen is negative. Care prior to arrival: None. 23:39 Method Of Arrival: Wheelchair mg2 23:39 Acuity: MARISOL 3 mg2 Historical: - Allergies: 23:49 No Known Allergies; mg2 - Home Meds: 23:49 aspirin 81 mg Oral chew 1 tab once daily [Active]; Bactrim DS 800-160 mg Oral tab 1 tab mg2 2 times per day [Active]; cetirizine 10 mg Oral chew 1 tab once daily [Active]; docusate sodium 100 mg Oral tab 1 tab 2 times per day [Active]; fluticasone inhalation 1 puff daily [Active]; Lactobacillus acidophilus Oral [Active]; lisinopril 5 mg Oral tab 1 tab twice a day [Active]; nitrofurantoin macrocrystal 100 mg Oral cap 1 cap twice a day [Active]; oxybutynin chloride 5 mg Oral tab 1 tab 3 times per day [Active]; rosuvastatin 5 mg Oral tab 1 tab once daily [Active]; tamsulosin 0.4 mg Oral cp24 1 cap once daily [Active]; - PMHx: 23:49 CAD; GALLSTONES; Hyperlipidemia; Hypertension; Kidney stones; mg2 - PSHx: 23:49 renal stone removal- feb 10, 2018; heart valve repair; mg2 - Immunization history:: Flu vaccine is not up to date. - Social history:: Smoking status: Patient/guardian denies using tobacco, Patient/guardian denies using alcohol, street drugs, IV drugs. - Ebola Screening: : No symptoms or risks identified at this time. Screenin/12 01:18 Abuse screen: Denies threats or abuse. Denies injuries from another. Nutritional mg2 screening: No deficits noted. Tuberculosis screening: No symptoms or risk factors identified. Fall Risk IV access (20 points). Assessment: 01:47 General: Appears in no apparent distress. comfortable, Behavior is calm, cooperative. mg2 Pain: Complains of pain in lower back Pain does not radiate. Pain currently is 3 out of 10 on a pain scale. Quality of pain is described as aching, Pain began gradually, Is intermittent. Neuro: Level of Consciousness is awake, alert, obeys commands, Oriented to person, place, time, situation. Cardiovascular: Capillary refill < 3 seconds Patient's skin is warm and dry. Respiratory: Airway is patent Respiratory effort is even, unlabored, Respiratory pattern is regular, symmetrical. GI: No signs and/or symptoms were reported involving the gastrointestinal system. : No signs and/or symptoms were reported regarding the genitourinary system. : Urine is clear. EENT: No signs and/or symptoms were reported regarding the EENT system. Derm: Skin is intact, is fragile, Skin is pink, warm \T\ dry. normal. Musculoskeletal: Circulation, motion, and sensation intact. 04:09 Reassessment: Patient and/or family updated on plan of care and expected duration. Pain bb level reassessed. Patient is alert, oriented x 3, equal unlabored respirations, skin warm/dry/pink. Dr Villagomez at bedside for pt evaluation. 05:42 Reassessment: Patient and/or family updated on plan of care and expected duration. Pain bb level reassessed. Patient is alert, oriented x 3, equal unlabored respirations, skin warm/dry/pink. pt placed in hospital bed for comfort spouse provided with recliner awaiting bed assignment. Vital Signs: 02/11 23:49 BP 104 / 44; Pulse 88; Resp 18; Temp 98.7; Pulse Ox 100% on R/A; Weight 87.09 kg; mg2 Height 5 ft. 5 in. (165.10 cm); Pain 2/10; 02/12 01:50 BP 119 / 57; Pulse 91; Resp 18; Pulse Ox 98% on R/A; mg2 04:10 BP 119 / 57; Pulse 90; Resp 18; Pulse Ox 96% on R/A; bb 05:43 BP 122 / 54; Pulse 98; Resp 18 S; Temp 99.2(O); Pulse Ox 93% on R/A; bb 02/11 23:49 Body Mass Index 31.95 (87.09 kg, 165.10 cm) mg2 ED Course: 02/11 23:17 Patient arrived in ED. ds1 23:39 Edu Cuadra, RN is Primary Nurse. mg2 23:42 Triage completed. mg2 23:54 Arm band placed on. mg2 02/12 00:11 Aki Sweet MD is Attending Physician. pkl 00:45 X-ray completed. Portable x-ray completed in exam room. Patient tolerated procedure kw well. 00:46 XRAY Chest (1 view) In Process Unspecified. EDMS 01:17 No provider procedures requiring assistance completed. Inserted saline lock: 22 gauge mg2 in right forearm, using aseptic technique. Blood collected. 01:49 Patient has correct armband on for positive identification. Bed in low position. Call mg2 light in reach. Side rails up X 1. breast puller on. Pulse ox on. NIBP on. 02:20 Jeff Villagomez MD is Hospitalizing Provider. pkl 04:11 Awaiting bed assignment. bb 05:44 Patient admitted, IV remains in place. bb Administered Medications: 00:42 Drug: NS 0.9% 500 ml Route: IV; Rate: bolus; Site: right forearm; mg2 01:42 Follow up: IV Status: Completed infusion; IV Intake: 500ml bb 01:16 Drug: NS 0.9% 1000 ml Route: IV; Rate: 100 ml/hr; Site: right forearm; mg2 05:44 Follow up: IV Status: Completed infusion; IV Intake: 500ml bb Intake: 01:42 IV: 500ml; Total: 500ml. bb 05:44 IV: 500ml; Total: 1000ml. bb Outcome: 02:23 Decision to Hospitalize by Provider. pkl 05:44 Admitted to ER Hold. Please see [facility] for further documentation. bb 05:44 Condition: stable 05:44 Instructed on the need for admit. 07:59 Admitted to Med/surg accompanied by tech, family with patient, via stretcher, with sv chart, Report called to Brianna 08:32 Patient left the ED. Signatures: Dispatcher [employer] Pat Solis, RN RN Aki Montaño MD MD pkl [place], Nahed ds1 Sonia Greer RN RN bb Maren Borrego RN RN ss Tarsha Lauren Michele RN RN mg2
[2018-02-12 03:13] LABS: Urine Blood 3+ (NEG); Urine Glucose NEGATIVE (NEG); Urine Protein 2+ (NEG)
[2018-02-12] MEDS ORDERED: MORPHINE 2 MG/ML SYR IV PRN (04:20)
[2018-02-12] MEDS ORDERED: ONDANSETRON 4 MG/2 ML VIAL IV PRN (04:20)
[2018-02-12] MEDS: NA CHLORIDE 0.9% 1,000 ML IV SCH ×2 (05:00→18:05)
[2018-02-12 05:57] VITALS: BMI 31.9
[2018-02-12] MEDS ORDERED: PIPER/TAZO/NS 3.375gm 3.375 GM/100 ML BAG IVPB SCH (06:00)
[2018-02-12] MEDS ORDERED: PIPER/TAZO/NS 3.375gm 3.375 GM/100 ML BAG ONE (06:17)
--- NOTE | 2018-02-12 07:25 | P.HP ---
Certification for Inpatient Patient admitted to: Observation With expected LOS: <2 Midnights Patient will require the following post-hospital care: None Practitioner: I am a practitioner with admitting privileges, knowledge of patient current condition, hospital course, and medical plan of care. Services: Services provided to patient in accordance with Admission requirements found in Title 42 Section 412.3 of the Code of Federal Regulations Patient History Date of Service: 02/12/18 Reason for admission: Light-headed; fever; UTI; hypotension History of Present Illness: Patient is a 77-year-old gentleman who had lithotripsy at [facility] yesterday. Patient had a prior lithotripsy performed about a month ago. However, patient continued to have stones and so was advised to come back for repeat lithotripsy. This was done without any complications. Patient went home and he was doing fine but suddenly he started becoming febrile and felt lightheaded. Patient has not had an appetite for the last few days as well. Since he started feeling so badly she brought him to the emergency room. He was hypotensive. He was febrile. He was started on IV fluids and antibiotics and he is feeling somewhat better. He will be admitted for observation. Allergies No Known Allergies Allergy (Verified 04/28/16 01:20) Home Medications: Aspirin [Aspirin EC 81 MG] 81 mg PO DAILY 04/28/16 Cetirizine HCl [Zyrtec*] 10 mg PO DAILY 04/28/16 Clopidogrel Bisulfate [Plavix*] 75 mg PO DAILY #30 tablet 04/30/16 Metoprolol Tartrate [Lopressor*] 25 mg PO BID #60 tab 04/30/16 Rosuvastatin [Crestor*] 10 mg PO BEDTIME #30 tab 04/30/16 Docusate Sodium 100 mg PO BID 02/12/18 Fluticasone [Flonase 50MCG Nasal [place]*] 1 puff IN DAILY 02/12/18 L. Acidophilus/L.bulgaricus [Lactobacillus Tablet] 02/12/18 Lisinopril [Prinivil*] 5 mg PO BID 02/12/18 Nitrofurantoin Macrocrystal [Macrodantin] 100 mg PO BID 02/12/18 Oxybutynin Chloride 5 mg PO TID 02/12/18 Smz./Tmp. [Bactrim Ds 800 MG/160 MG*] 1 tab PO BID 02/12/18 Tamsulosin HCl 0.4 mg PO DAILY 02/12/18 - Past Medical/Surgical History Has patient received pneumonia vaccine in the past: Yes Diabetic: No -: degenerative arthritis -: Nephrolithiasis -: Hypertension -: Coronary artery disease -: Allergic rhinitis -: carotid sx -: CABG -: neck sx -: Lithotripsy with J stent placement - Family History Father Medical History: Heart disease - Social History Smoking Status: Current some day smoker Alcohol use: No CD- Drugs: No Caffeine use: Yes Place of Residence: Home Review of Systems 10-point ROS is otherwise unremarkable Physical Examination - Vital Signs Temperature: 99.3 F Blood Pressure: 116/49 Pulse: 91 Respirations: 20 Pulse Ox (%): 92 - Physical Exam General: Alert, In no apparent distress, Oriented x3 HEENT: Atraumatic, PERRLA, Mucous membr. moist/pink, EOMI, Sclerae nonicteric Neck: Supple, 2+ carotid pulse no bruit, No LAD, Without JVD or thyroid abnormality Respiratory: Clear to auscultation bilaterally, Normal air movement Cardiovascular: Regular rate/rhythm, Normal S1 S2, No murmurs Gastrointestinal: Normal bowel sounds, Soft and benign, Non-distended, No tenderness Musculoskeletal: No clubbing, No swelling, No tenderness Integumentary: No rashes Neurological: Normal gait, Normal speech, Normal strength at 5/5 x4 extr, Normal tone, Sensation intact, Cranial nerves 3-12 intact, Normal affect Lymphatics: No axilla or inguinal lymphadenopathy - Studies Laboratory Data (last 24 hrs) 02/12/18 00:30: PT 14.2 H, INR 1.20, APTT 27.5 02/12/18 00:30: WBC 14.7 H, Hgb 10.5 L, Hct 32.0 L, Plt Count 137 L 02/12/18 00:30: Sodium 134 L, Potassium 4.3, BUN 29 H, Creatinine 1.80 H, Glucose 140 H, Magnesium 2.0, Total Bilirubin 0.6, AST 30, ALT 20, Alkaline Phosphatase 100 Assessment & Plan - Problems (Diagnosis) (1) Fever Current Visit: Yes Status: Acute (2) Hypotension Current Visit: Yes Status: Acute (3) Status post laser lithotripsy of ureteral calculus Current Visit: Yes Status: Acute (4) CAD (coronary artery disease) Onset Date: 04/30/16 Current Visit: No Status: Acute (5) Hyperlipidemia Onset Date: 04/30/16 Current Visit: No Status: Acute (6) Hypertension Onset Date: 04/30/16 Current Visit: No Status: Acute (7) TIA (transient ischemic attack) Onset Date: 04/30/16 Current Visit: No Status: Acute (8) UTI (urinary tract infection) Onset Date: 04/30/16 Current Visit: No Status: Acute - Plan Plan: 1. Continue with IV hydration 2. Continue with IV antibiotics 3. Continue with pain control as needed 4. Diet as tolerated/heart healthy 5. May need urology consultation but at this time will just hydrate entry with antibiotics and see how patient does. 6. Monitor labs closely 7. GI and DVT prophylaxis Discharge Plan: Home Plan to discharge in: 24 Hours - Advance Directives Does patient have a Living Will: No Does patient have a Durable POA for Healthcare: No - Code Status/Comfort Care Code Status Assessed: Yes Code Status: Full Code Critical Care: No Time Spent Managing PTS Care (In Minutes): 50
--- OUTSIDE RECORDS SUMMARY | 2018-02-12 08:13 | XMS REPORT | Clinical Summary ---
:1940 Author Organization [facility] Address [address] [place] [address] Phone Care Team Providers Name Role Phone [...] Take 1 capsule 60 capsule 0 02/11/20 Discontinued 0.4 mg Cap 24 hr (0.4 mg [...] chronic arterial 09/18/2017 CAD (coronary artery disease), [place] coronary artery 09/18/2017 H/O TIA (transient ischemic attack) x 2 09/18/2017 BPH (benign prostatic hyperplasia) 09/18/2017 Hypercholesteremia 09/18/2017 Kidney stones 09/18/2017 Skin cancer (Left episcopalian) 09/18/2017 S/P CABG x 3 (1999) 09/18/2017 S/P AAA repair (01/2017) 09/18/2017 Obesity, Class I, BMI 30-34.9 09/18/2017 Former smoker (40 pack year, quit 06/03/1999) 09/18/2017 Arthritis 09/18/2017 Moderatley enlarged LA (left atrium) 09/18/2017 Ventricular tachycardia (HCC) 09/18/2017 PAD (peripheral artery disease) ([facility]) 08/21/2017 Encounters Date Type Specialty Care Team Description 02/10/2018 Hospital Encounter Yinka Marino MD 02/10/2018 Procedure Pass 02/10/2018 Surgery Ned CYSTOSCOPY,INSERTION MD Yinka URETERAL STENTS 02/07/2018 Hospital Encounter Pre-Admission Naveen Marino MD 02/07/2018 Anesthesia Event Michael Paul [...] Yinka Dx) 12/30/2017 Anesthesia Event Pre-Admission Naveen Ritchie, TIFFANIE 12/20/2017 [facility] Katherine Hummel MD 12/16/2017 - Hospital Encounter General Internal Amando Larson Acute low back pain 12/18/2017 Medicine MD Pardeep without sciatica, Conchis, unspecified back pain Mrinalini Zade, laterality (Primary MD Dx);Acute Mezrahi, Mary, pyelonephritis;Nephro MD stomy tube failure with subsequent urine leak ([facility]);Chronic obstructive pulmonary disease, unspecified COPD type ([facility]);Essential hypertension;Aortic stenosis, severe;Arthritis;Ramos gn prostatic hyperplasia, unspecified whether lower urinary tract symptoms present 09/18/2017 - Hospital Encounter Cardiology Bg Solis Aortic stenosis, 09/20/2017 MD Maurice severe;Ventricular tachycardia ([facility]);At high risk for hemodynamic instability [...] Dutta PAD (peripheral MD True artery disease) ([facility]) 08/21/2017 Orders Only General Internal [...] MD Natalia valve stenosis (Primary Dx) after 02/10/2017 Social History Tobacco Use Types Packs/Day Years [...] Not on file Implants Implanted Type Area Lastex Operator Device Expiration Model / Identifier Date Serial / Lot Mynxgrip Vascular Closure Device Cardiovascular Left: [id number] / Implanted: Qty: 1 on 08/21/2017 by Martín Dutta MD Groin / [id number] Mynxgrip Vascular Closure Device Cardiovascular Right: [id number] / Implanted: Qty: 1 on 08/21/2017 by Martín Dutta MD Groin / [id number] Closure Sys Perclose Progl 6fr [id number] - Sn/A Cardiovascular N/A: BA 07/03/2019 [id number] / Implanted: Qty: 3 on 09/18/2017 by Yinka Jon MD Arterial LAB :VASC DEV N/A / [id number] Patch Vasc [place] 1.65mm 1x6in [id number] - [id number] Graft/Patch Right: CR 04/30/2022 [id number] / Implanted: Qty: 1 on 09/18/2017 by Bg Solis MD Groin BARD :PERIPHERA / L VASC [id number] Stent Uret Cntour Inj [id number] - [id number] Uro Stent BOSTON 03/15 [id number] / Implanted: Qty: 1 on 01/08/2018 by Yinka Marino MD SCI:UROLOGY/GY / NECOLOGY [id number] Set Stent Injection 6x26cm [id number] - [id number] Uro Stent Right: BOSTON [id number] / Implanted: Qty: 1 on 02/10/2018 by Yinka Marino MD Ureter SCI: ONCOLOGY / [id number] Valve Aortic 29 [id number] - [id number] Valves N/A: Aorta MEDTRONIC:STRU 10/27/2018 [id number] / Implanted: Qty: 1 on 09/18/2017 by Yinka Jon MD CTURAL HEART [id number] / N/A Procedures Procedure Name Priority Date/Time Associated Diagnosis Comments CYSTOSCOPY,URETEROSCOPY 02/10/2018 8:00 AM Kidney stone W/ LASER LITHOTRIPSY CDT CYSTOSCOPY,INSERTION 02/10/2018 8:00 AM Kidney stone URETERAL STENTS CDT INJECTION,RETROGRADE 01/08/2018 11:50 AM Stone, kidney URETHROGRAM [...] WITH POSS INTERVENTION/REQ 11: 30M CASE/CPT CODE 15664 after 02/10/2017 Results [place] senior energy trader in or 30 minute increments (02/10/2018 1:20 [...] MD Report Verified Date/Time:02/10/2018 13:59:29 Reading Location: [address] Consult Reading Room Procedure Note Interface, [...] Report Verified Date/Time: 02/10/2018 13:59:29 Reading Location: [address] Consult Reading Room Cytology (02/10/2018 12:31 PM) Component Value Ref Range Case Report Medical Cytology Report Case: [id number] Authorizing Provider:Yinka Marino MD Collected: 02/10/2018 1231 Ordering Location: [facility] PERIOPERATIVE Received: 02/11/2018 0839 SERVICES Pathologist: Godwin Yin MD Specimen:Renal Pelvis DIAGNOSIS RENAL PELVIS WASHING (CYTOSPINS): - NEGATIVE FOR HIGH GRADE UROTHELIAL MALIGNANCY ACUTE INFLAMMATION IS PRESENT Signing Pathologist Direct Phone Line: [phone] CPT Code(s) 07215 CLINICAL DATA Assessment of hydronephrosis and urinary stones. SPECIMEN SOURCE RENAL PELVIS WASHING GROSS DESCRIPTION 20 mls blood-tinged; 4 cytospins Collected: [id number] Received: [id number] STATEMENT OF ADEQUACY Satisfactory Technical component was performed at [facility], Department of Pathology, [address] [place] [address], Professional component was performed [facility], at Department of Pathology, [address] [place] [address], Specimen Performing Laboratory Washings - Renal Pelvis [facility] [address] [address] Tissue Exam (02/10/2018 9:23 AM)Only the most recent of2 resultswithin the time period is included. Component Value Ref Range Case Report Surgical Pathology Report Case: [id number] Authorizing Provider:Yinka Marino MD Collected: 02/10/2018 0923 Ordering Location: [facility] PERIOPERATIVE Received: 02/10/2018 1340 SERVICES Pathologist: Godwin Yin MD Specimens: A) - Ureteral Stent, RIGHT URETERAL STENT FOR ID ONLY B) - Renal Pelvis, RIGHT RENAL PELVIS BIOPSY DIAGNOSIS A. RIGHT URETERAL STENT, REMOVAL: - URETERAL STENT IDENTIFIED (GROSS ONLY) B. RENAL PELVIS, RIGHT, BIOPSY: - BENIGN UROTHELIUM WITH ACUTE AND CHRONIC INFLAMMATION - NEGATIVE FOR DYSPLASIA/CARCINOMA Signing Pathologist Direct Phone Line: [phone] CPT Code(s) 41218 86786 CLINICAL HISTORY Kidney stone, urinary tract infection without hematuria, hydronephrosis due to obstruction of ureter SPECIMEN SOURCE A. Right ureteral stent; B. Right renal pelvis GROSS DESCRIPTION The specimen is received in two containers of formalin both labeled with the patient's information. Part A is received without fluid and labeled "right ureteral stent" and consists of a blue stent measuring 38.5 cm in length x 0.3 cm in diameter. The specimen is submitted for gross identification only. Part B labeled "right renal pelvis biopsy" consists of three fragments of doty -red soft tissue ranging from less than 0.1 to 1 cm, submitted entirely B1. CG/pl MICROSCOPIC DESCRIPTION Performed. Specimen Performing Laboratory Tissue - Ureteral Stent; Tissue - Renal [facility] Pelvis [address] [place] [address] RHYTHM STRIP - SCAN (01/10/2018 10:40 AM)Only the [...] % Specimen Performing Laboratory Blood - Arm, [address] [address] CBC with platelet count + automated diff (01/09/2018 5:11 AM)Only the most recent of8 resultswithin the time period is included. Specimen Performing Laboratory Blood Narrative The following orders were created for panel order CBC with platelet count + automated diff. Procedure Abnormality Status --------- ------ CBC with platelet count ...[[id number]]AbnormalFinal result Please view results for these tests [...] PATIENTS. Specimen Performing Laboratory Blood - Arm, [address] [address] STONE ANALYSIS (01/08/2018 5:12 PM) Component Value [...] analytical performance characteristics have been determined by [employer] [facility]. It has not been cleared or approved by the US Food and Drug Administration. This assay has been validated pursuant to the CLIA regulations and is used for clinical purposes. Specimen Performing Laboratory Tissue - Stone [facility]houses DIAGNOSTIC [facility] [address] [place] [address] Narrative Performing Lab *SPL [employer] [facility], [address] [place] [phone] Sony Harding MD, PhD Manual Differential (12/18/2017 [...] Decreased Specimen Performing Laboratory Blood - Arm, [place] [address] Narrative Received comment: User comments: Slide comments: Magnesium (12/18/2017 5:19 AM)Only the most recent of5 resultswithin the time period is included. Component Value Ref Range Magnesium 2.2 1.6 - 2.6 mg/dL Specimen Performing Laboratory Blood - Arm, [address] [address] ECG 12 lead (12/17/2017 3:11 PM)Only the most recent of3 resultswithin the time period is included. Specimen Performing Laboratory GE MUSE Narrative Ventricular Rate 86 BPM Atrial Rate 86 BPM P-R Interval 154 ms QRS Duration 90 ms Q-T Interval 370 ms QTC Calculation(Bazett) 442 ms P Dubberly 45 degrees R Dubberly 25 degrees T Dubberly 126 degrees Normal sinus rhythm ST & T wave abnormality, consider lateral ischemia Abnormal ECG When compared with ECG of 18-SEP-2017 17:55, T wave inversion no longer evident in Inferior leads Confirmed by MD PEREZ JOSEPH P ([id number]) on 12/18/2017 6:35:25 AM Procedure Note Interface, External Ris In - 12/18/2017 6:35 AM CDT Ventricular Rate 86 BPM Atrial Rate 86 BPM P-R Interval 154 ms QRS Duration 90 ms Q-T Interval 370 ms QTC Calculation(Bazett) 442 ms P Dubberly 45 degrees R Dubberly 25 degrees T Dubberly 126 degrees Normal sinus rhythm ST & T wave abnormality, consider lateral ischemia Abnormal ECG When compared with ECG of 18-SEP-2017 17:55, T wave inversion no longer evident in Inferior leads Confirmed by MD PEREZ JOSEPH P ([id number]) on 12/18/2017 6:35:25 AM IR Drainage Catheter Change (12/16/2017 2:45 PM) Specimen Performing Laboratory GE RIS Narrative FINAL REPORT Right percutaneous nephrostomy catheter exchange. History: Back pain, urinary retention Modality: Fluoroscopy Sedation: Versed 1.0 mg and fentanyl 50 mcg was given intravenously for conscious sedation.Vital signs were monitored throughout the procedure by a nurse, and remained stable. Physician intra-service time was 30 minutes. School Examiner:Uriah Johnston MD. Industrial Real Estate Agent:Jas Approach: Existing right nephrostomy Estimated blood loss:< [...] the wire through the catheter. A 9 Bahraini sheath was advanced over the catheter and into the kidney. The catheter is able to be removed through the sheath. A guidewire was then inserted through the sheath and coiled within the renal pelvis. The sheath was removed and a new 8.5 Bahraini catheter was advanced over the guidewire and [...] MD Report Verified Date/Time:12/18/2017 10:11:33 Reading Location: [facility] Diagnostic Imaging Reading Room - [facility] 1.310.12 Procedure Note Interface, External Ris In - 12/18/2017 10:13 AM CDT FINAL REPORT Right percutaneous nephrostomy catheter exchange. History: Back pain, urinary retention Modality: Fluoroscopy Sedation: Versed 1.0 mg and fentanyl 50 mcg was given intravenously for conscious sedation. Vital signs were monitored throughout the procedure by a nurse, and remained stable. Physician intra-service time was 30 minutes. School Examiner: Uriah Johnston MD. Industrial Real Estate Agent: Jas Approach: Existing right nephrostomy Estimated blood [...] the wire through the catheter. A 9 Bahraini sheath was advanced over the catheter and into the kidney. The catheter is able to be removed through the sheath. A guidewire was then inserted through the sheath and coiled within the renal pelvis. The sheath was removed and a new 8.5 Bahraini catheter was advanced over the guidewire and [...] Report Verified Date/Time: 12/18/2017 10:11:33 Reading Location: [facility] Diagnostic Imaging Reading Room - [facility] 1.310.12 Urinalysis w/Microscopic (12/16/2017 9:10 AM)Only the most recent of2 resultswithin the time period is included. Component Value Ref Range Color, UA Yellow Clarity, UA Cloudy Specific [place], UA 1.014 1.001 - 1.035 pH, UA [...] Specimen Performing Laboratory Urine - Urine, Voided [address] [address] Urine culture (12/16/2017 9:10 AM)Only the most [...] Specimen Performing Laboratory Urine - Urine, Voided [address] [address] Organism Antibiotic Method Susceptibility Escherichia coli Amikacin [...] MD Report Verified Date/Time:09/20/2017 08:15:10 Reading Location: [facility] Radiology Reading Room Procedure Note Interface, [...] Report Verified Date/Time: 09/20/2017 08:15:10 Reading Location: [facility] Radiology Reading Room aPTT (09/20/2017 3:36 AM)Only the most recent of3 resultswithin the time period is included. Component Value Ref Range PTT 30.3 22.5 - 36.0 seconds Specimen Performing Laboratory Blood - Central Venous Line [address] [address] Prothrombin time/INR (09/20/2017 3:36 AM)Only the most recent of3 resultswithin the time period is included. Component Value Ref Range Protime 15.3 (H) 11.7 - 14.7 seconds INR 1.2 <=5.9 Specimen Performing Laboratory Blood - Central Venous Line [address] [address] Narrative RECOMMENDED COUMADIN/WARFARIN INR THERAPY RANGES STANDARD [...] Performing Laboratory Blood - Central Venous Line [address] [address] Phosphorus (09/20/2017 3:36 AM)Only the most recent of3 resultswithin the time period is included. Component Value Ref Range Phosphorus 2.5 2.3 - 4.7 mg/dL Specimen Performing Laboratory Blood - Central Venous Line [address] [address] TRANSFUSION SERVICE REPORT - SCAN (09/19/2017 5:44 PM)Only the most recent of3 resultswithin the time period is included.ECHOCARDIOGRAM REPORT - SCAN (2017 4:20 PM)Only the most recent of2 resultswithin the time period is included.2D Echo W/Doppler(CW/PW/Color) (09/19/2017 10:04 AM)Only the most recent of2 resultswithin the time period is included. Component Value Ref Range Ejection Fraction Specimen Performing Laboratory [facility] ECHO HEARTLAB [facility] Narrative Transthoracic Echocardiography Report (TTE) Demographics Patient Name Lawanda JAMISON of Study 09/19/2017 BECKA [id number] Male Visit Number [id number] Room Number 2C50 Number Date of Birth1Referring Physician Bere Pederson Age76 year(s)Burn Nurse Yady Haq Interpreting Bg Perez Physician Fellow SHOSHANA Lopez Procedure Type of Study [...] Study 09/19/2017 BECKA Gender Male Visit Number [id number] Race Unknown Room Number 2C50 Number Date of 1940 Referring Physician Bere Pederson Age 76 year(s) Burn Nurse Yady Haq Interpreting Bg Perez, Physician Fellow SHOSHANA Lopez Procedure Type of Study [...] 30.0 % Specimen Performing Laboratory Blood, Arterial [address] [address] Narrative Daily ABG with morning labs while patient is intubated. POC-Glucose meter (09/19/2017 1:02 AM) Component Value Ref Range POC-Glucose Meter 144 (H)Comment: TESTED AT [address] 70 - 110 mg/[place] [address] Specimen Performing Laboratory Blood [address] [address] Prepare RBC (09/18/2017 4:07 PM) Component Value Ref Range CROSSMATCH COMPATIBLE Unit ABO A Pos UNIT NUMBER [id number] Status RETURNED FROM ISSUE Blood Bank Product RED BLOOD CELLS PRODUCT CODE [id number] CROSSMATCH COMPATIBLE Unit ABO A Pos UNIT NUMBER [id number] Status RETURNED FROM ISSUE Blood Bank Product RED BLOOD CELLS PRODUCT CODE [id number] CROSSMATCH COMPATIBLE Unit ABO A Pos UNIT NUMBER [id number] Status RETURNED FROM ISSUE Blood Bank Product RED BLOOD CELLS PRODUCT CODE [id number] CROSSMATCH COMPATIBLE Unit ABO A Pos UNIT NUMBER [id number] Status RETURNED FROM ISSUE Blood Bank Product RED BLOOD CELLS PRODUCT CODE [id number] Specimen Performing Laboratory [place] [facility] CRITICAL LABS (ABG,NA,K,H&H,GLUCOSE) (09/18/2017 3:41 PM)Only the most recent of3 resultswithin the time period is included. Specimen Performing Laboratory Blood, Arterial Narrative The following orders were created for panel order RRL CRITICAL LABS (ABG,NA,K,H&H,GLUCOSE). Procedure Abnormality Status --------- ------ Blood gas, arterial[[id number]]AbnormalFinal result Sodium Na-Stat Lab[[id number]] NormalFinal result Potassium-Stat Lab[[id number]] NormalFinal result Glucose-Stat Lab[[id number]] AbnormalFinal result HGB/HCT (H&H)-Stat Lab[[id number]] Abnormal Final result Please view results for these tests on the individual orders. Potassium-Stat Lab (09/18/2017 3:41 PM)Only the most recent of3 resultswithin the time period is included. Component Value Ref Range Potassium 4.1 3.6 - 5.5 meq/L Specimen Performing Laboratory Blood, Arterial [address] [address] Sodium Na-Stat Lab (09/18/2017 3:41 PM)Only the most recent of3 resultswithin the time period is included. Component Value Ref Range Sodium 135 135 - 148 meq/L Specimen Performing Laboratory Blood, Arterial [address] [address] Glucose-Stat Lab (09/18/2017 3:41 PM)Only the most recent of3 resultswithin the time period is included. Component Value Ref Range Glucose 129 (H) 70 - 110 mg/dL Specimen Performing Laboratory Blood, Arterial [facility] [address] HGB/HCT (H&H)-Stat Lab (09/18/2017 3:41 PM)Only the most recent of3 resultswithin the time period is included. Component Value Ref Range Hemoglobin 10.6 (L) 13.0 - 16.8 g/dL Hematocrit 31.0 (L) 40.0 - 50.0 % Specimen Performing Laboratory Blood, Arterial [address] [address] Calcium, Ionized (09/18/2017 3:41 PM)Only the most recent of3 resultswithin the time period is included. Component Value Ref Range Calcium, Ion 1.21 1.12 - 1.27 mmol/L pH, Blood 7.42 Specimen Performing Laboratory Blood [address] [address] Lactic acid, arterial, whole blood (09/18/2017 3:41 PM) Component Value Ref Range Lactate, Art 1.4 0.5 - 2.2 mmol/L Specimen Performing Laboratory Blood, Arterial [address] [address] Narrative Effective 10/05/2015: Units/Reference Range Change New: [...] Requesting Physician: BG SOLIS Examiner[facility] Int[facility] Sedated Patient screened for esoph disease: [...] Range Activated Clotting Time 120Comment: TESTED AT [address] sec [address] Specimen Performing Laboratory Blood [address] [address] Type and screen, automated (09/17/2017 10:57 AM)Only the most recent of2 resultswithin the time period is included. Component Value Ref Range ABO/RH AUTOMATED (BEAKER) A POSITIVE Ab Scrn NEGATIVE Specimen Performing Laboratory Blood - Arm, [address] [address] PT/aPTT (09/17/2017 10:57 AM)Only the most recent of2 resultswithin the time period is included. Component Value Ref Range Protime 15.1 (H) 11.7 - 14.7 seconds INR 1.2 <=5.9 PTT 30.4 22.5 - 36.0 seconds Specimen Performing Laboratory Blood - Arm, [address] [address] Narrative RECOMMENDED COUMADIN/WARFARIN INR THERAPY RANGES STANDARD DOSE: 2.0 - 3.0 Includes: PROPHYLAXIS for venous thrombosis, systemic embolization; TREATMENT for venous thrombosis and/or pulmonary embolus. HIGH RISK: Target INR is 2.5-3.5 for patients with mechanical heart valves. B-type Natriuretic Factor (BNP) (09/17/2017 10:57 AM) Component Value Ref Range BNP 489 (H) 0 - 100 pg/mL Specimen Performing Laboratory Blood - Arm, [address] [address] Albumin (09/17/2017 10:57 AM) Component Value Ref Range Albumin 3.3 (L) 3.5 - 5.0 g/dL Specimen Performing Laboratory Blood - Arm, [address] [address] IR Percutaneous Nephrostomy - Ext. Drain Placement (09/11/2017 10:20 AM) Specimen Performing Laboratory GE RIS Narrative FINAL REPORT Fluoroscopic guided right nephrostomy tube placement, 09/11/2017. Clinical History: Right hydronephrosis, obstructing ureteral stone. Modality: Sonography and fluoroscopy School Examiner:Uriah Johnston MD. Industrial Real Estate Agent:Tom Taylor MD. Sedation: Versed 1.0 mg and [...] soft tissue tract was dilated to 8 Bahraini. A 8.5 Bahraini drainage catheter was placed into the right [...] MD Report Verified Date/Time:09/12/2017 18:01:37 Reading Location: [place] [address] Angio Body Reading Room Procedure Note Interface, External Ris In - 09/12/2017 6:03 PM CDT FINAL REPORT Fluoroscopic guided right nephrostomy tube placement, 09/11/2017. Clinical History: Right hydronephrosis, obstructing ureteral stone. Modality: Sonography and fluoroscopy School Examiner: Uriah Johnston MD. Industrial Real Estate Agent: Tom Taylor MD. Sedation: Versed 1.0 mg [...] soft tissue tract was dilated to 8 Bahraini. A 8.5 Bahraini drainage catheter was placed into the right [...] Report Verified Date/Time: 09/12/2017 18:01:37 Reading Location: [place] [address] Angio Body Reading Room Platelet count (09/11/2017 6:00 AM) Component Value Ref Range Platelets 111 (L) 150 - 450 K/CU MM Specimen Performing Laboratory [place] [address] CARDIAC CATH REPORT - SCAN (08/24/2017 3:10 PM)CTA chest (08/02/2017 1:07 PM) Specimen Performing Laboratory [facility] RIS Narrative Addendum Begins REPORT STATUS:A Addendum: I reviewed the images and the nonvascular findings enumerated by Dr. Esiptia and tamanna. Paraseptal emphysematous changes are noted. [...] MD Report Verified Date/Time:08/02/2017 16:05:09 Reading Location: [place] [address] Angio Body Reading Room Addendum Ends FINAL [...] 121. The right internal mammary artery is [place]. There is a bypass graft seen to [...] the pelvic arteries are seen to be [place], with calcific atherosclerosis identified. See below for [...] degrees. The angle of delivery is approximately FRENCH 2 CAU 5. A vascular graft is seen in the infrarenal abdominal aorta. The minimum and the perpendicular left common iliac artery measures 7.7 and 8.1 mm, respectively with tbte-et-nkipatmtklthdbdlqt and moderate calcific atherosclerosis present. The minimum [...] 7.6 mm, respectively with mild tortuosity and gjrn-ex-jtctpalm focal calcific atherosclerosis present. NONVASCULAR: The visualised [...] 4.An addendum will be dictated by the Milk Treater Radiologist regarding the nonvascular findings. Signed: Basilio Treadwell MD Report Verified Date/Time:08/02/2017 15:10:05 Reading Location: [place] [address] Cardiology MRI Procedure Note Interface, External Ris In - 08/05/2017 7:05 PM CLAY DIGGER Addendum Begins REPORT STATUS:A Addendum: I reviewed [...] Report Verified Date/Time: 08/02/2017 16:05:09 Reading Location: [place] [address] Angio Body Reading Room Addendum Ends FINAL [...] 121. The right internal mammary artery is [place]. There is a bypass graft seen to [...] the pelvic arteries are seen to be [place], with calcific atherosclerosis identified. See below for [...] degrees. The angle of delivery is approximately FRENCH 2 CAU 5. A vascular graft is seen in the infrarenal abdominal aorta. The minimum and the perpendicular left common iliac artery measures 7.7 and 8.1 mm, respectively with nkow-pv-xietqvqz tortuosity and moderate calcific atherosclerosis present. The [...] 7.6 mm, respectively with mild tortuosity and uugv-bn-syqvvczz focal calcific atherosclerosis present. NONVASCULAR: The visualised [...] An addendum will be dictated by the Milk Treater Radiologist regarding the nonvascular findings. Signed: Basilio Treadwell MD Report Verified Date/Time: 08/02/2017 15:10:05 Reading Location: [facility] P047 Cardiology MRI abdomen & pelvis (08/02/2017 1:07 PM) Specimen Performing Laboratory [facility] RIS Narrative Addendum Begins REPORT STATUS:A Addendum: I [...] MD Report Verified Date/Time:08/02/2017 16:05:09 Reading Location: [place] [address] Angio Body Reading Room Addendum Ends FINAL [...] 121. The right internal mammary artery is [place]. There is a bypass graft seen to [...] the pelvic arteries are seen to be [place], with calcific atherosclerosis identified. See below for [...] degrees. The angle of delivery is approximately FRENCH 2 CAU 5. A vascular graft is seen in the infrarenal abdominal aorta. The minimum and the perpendicular left common iliac artery measures 7.7 and 8.1 mm, respectively with wabb-qk-qgilrgbpomokrnavsg and moderate calcific atherosclerosis present. The minimum [...] 7.6 mm, respectively with mild tortuosity and tvmh-lz-swvtpriy focal calcific atherosclerosis present. NONVASCULAR: The visualised [...] 4.An addendum will be dictated by the Milk Treater Radiologist regarding the nonvascular findings. Signed: Basilio Treadwell MD Report Verified Date/Time:08/02/2017 15:10:05 Reading Location: [facility] P047 Cardiology MRI Procedure Note Interface, External Ris In - 08/02/2017 4:07 PM CLAY DIGGER Addendum Begins REPORT STATUS:A Addendum: I reviewed [...] Report Verified Date/Time: 08/02/2017 16:05:09 Reading Location: [place] [id number] Angio Body Reading Room Addendum Ends FINAL [...] 121. The right internal mammary artery is [place]. There is a bypass graft seen to [...] the pelvic arteries are seen to be [place], with calcific atherosclerosis identified. See below for [...] degrees. The angle of delivery is approximately FRENCH 2 CAU 5. A vascular graft is seen in the infrarenal abdominal aorta. The minimum and the perpendicular left common iliac artery measures 7.7 and 8.1 mm, respectively with aqxb-kw-kpmkqved tortuosity and moderate calcific atherosclerosis present. The [...] 7.6 mm, respectively with mild tortuosity and popp-wh-dtmcaves focal calcific atherosclerosis present. NONVASCULAR: The visualised [...] An addendum will be dictated by the Milk Treater Radiologist regarding the nonvascular findings. Signed: Basilio Treadwell MD Report Verified Date/Time: 08/02/2017 15:10:05 Reading Location: [place] [address] Cardiology MRI -Creatinine (08/02/2017 12:27 PM) Component Value Ref Range POC-Creatinine 0.9Comment: TESTED AT [address] 0.6 - 1.3 mg/dL [address] POC-EGFR 82 mL/min/1.73M2 Specimen Performing Laboratory Blood [address] [address] PULMONARY FUNCTION - SCAN (08/02/2017 11:24 AM)after 02/10/2017 Advance Directives Patient has advance directives. For more information, please contact:[address] [phone]
--- OUTSIDE RECORDS SUMMARY | 2018-02-12 08:14 | XMS REPORT | Continuity of Care Document ---
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, [facility] History of Resolved Problem 05/24/2017 [facility] TIAs<sup>2</fonseca Medical p> [place] HLD (<span Active Problem 05/24/2017 [place] ID="[id number] Medical 77">Confirmed< Center, /span>) Medical Group HTN (<span Active Problem 05/24/2017 [place] ID="[id number] Medical 43">Confirmed< Center, /span>) Medical Group CA of skin Resolved Problem 05/24/2017 [facility], [facility] Poor urinary Active Problem 05/24/2017 [facility] stream [facility], Medical Group Urinary Active Problem 05/24/2017 [facility] retention [facility] Simple obesity Active Problem 05/24/2017 Medical Group Bladder stone Active Problem 05/24/2017 [facility], [facility] Group ABDOMINAL Active [facility] AORTIC Medical ANEURYSM, Center WITHOUT RUPTU Medications [...] senna 8.6 mg 17.2 mg=2 tab, Active [place] oral tablet PO, QNoon, X 10 2016 Medical day, # 20 tab, Center 0 Refill(s) nebivolol 2.5 MG 2.5 mg=1 tab, Active [place] Oral Tablet PO, Daily, # 30 2017 Medical [Bystolic] tab, 1 Center Refill(s) aspirin 81 mg 81 mg=1 tab, Active [place] tablet, enteric PO, Daily, # 2017 Medical coated 100 tab, 0 Center Refill(s) Acetaminophen 2 tab, PO, Q4H, Active [place] 300 MG / Codeine PRN Pain Score 2017 Medical Phosphate 30 MG 4-6, X 10 day, Center Oral Tablet # 120 tab, 0 [Tylenol with Refill(s) Codeine #3] Miralax 17 gm, 1 pkt, No Longer [place] Route: PO, Drug Active 2016 Medical form: PWDR, Center Daily, Dosing Weight 86.591, kg, Start date: 03/02/17 9:00:00 CDT, Duration: 30 day, Stop date: 03/31/17 9:00:00 CDTNotes: Dissolve in 8 oz of water or juice. (Same as: Miralax) Acetaminophen 2 tab, Route: No Longer [place] 300 MG / Codeine PO, Drug Form: Active 2017 Medical Phosphate 30 MG TAB, Dosing Center Oral Tablet Weight 86.591, [Tylenol with kg, Q4H, PRN Codeine #3] Pain Score 4-6, Start date: 03/02/17 7:47:00 CDT, Duration: 30 day, Stop date: 04/01/17 7:46:00 CDTNotes: Do not exceed 4gm/day of acetaminophen. (Same as: Tylenol with Codeine # 3) Calcium 3 gm, 30 mL, No Longer [place] Gluconate Route: IVPB, Active 2016 Medical PRN, Dosing Center Weight 86.591, kg, PRN Abnormal Lab Result, For NON-ICU Patients Only., Start date: 03/01/17 10:33:00 CDT, Duration: 30 day, Stop date: 03/31/17 10:32:00 CDTNotes: WASTE: F/P - Sink; E - Municipal Trash Bin Magnesium Oxide 800 mg, 2 tab, No Longer [place] Route: PO, Drug Active 2016 Medical form: TAB, PRN, Center Dosing Weight 86.591, kg, PRN Abnormal Lab Result, For NON-ICU Patients Only., Start date: 03/01/17 10:33:00 CDT, Duration: 30 day, Stop date: 03/31/17 10:32:00 CDTNotes: (Same as: Mag-Ox 400) Magnesium oxide [id number] elemental magnesium Dose=____mg magnesium oxide (___mg elemental magnesium) Magnesium 1 gm, 100 mL, No Longer [place] Sulfate Route: IVPB, Active 2016 Medical Drug form: INJ, Center PRN, Dosing Weight 86.591, kg, PRN Abnormal Lab Result, For NON-ICU Patients Only., Start date: 03/01/17 10:33:00 CDT, Duration: 30 day, Stop date: 03/31/17 10:32:00 CDTNotes: WASTE: F/P - Sink; E - Municipal Trash Bin sodium phosphate 30 mmol, 10 mL, No Longer [place] Route: IVPB, Active 2016 Medical PRN, Dosing Center Weight 86.591, kg, PRN Abnormal Lab Result, For NON-ICU Patients Only., Start date: 03/01/17 10:33:00 CDT, Duration: 30 day, Stop date: 03/31/17 10:32:00 CDT potassium 30 mmol, 10 mL, No Longer [place] phosphate Route: IVPB, Active 2016 Medical PRN, Dosing Center Weight 86.591, kg, PRN Abnormal Lab Result, For NON-ICU Patients Only., Start date: 03/01/17 10:33:00 CDT, Duration: 30 day, Stop date: 03/31/17 10:32:00 CDTNotes: (Same as: K Phosphate.) 1 mMol phoshate has 1.47 mEq potassium Infuse over 4 hours Potassium 20 mEq, 15 mL, No Longer [place] Chloride Route: NJ, Drug Active 2016 Medical form: LIQ, PRN, Center Dosing Weight 86.591, kg, PRN Abnormal Lab Result, For NON-ICU Patients Only, Start date: 03/01/17 10:33:00 CDT, Duration: 30 day, Stop date: 03/31/17 10:32:00 CDTNotes: (Same as: Potassium Chloride) potassium 2 pkt, Route: No Longer [place] phosphate-sodium PO, Drug Form: Active 2017 Medical [...] MG 3 mg, 1 tab, No Longer [place] Extended Release Route: PO, Drug Active 2016 Medical Tablet Form: TAB, Center Dosing Weight 86.591, kg, Bedtime, PRN as needed for insomnia, Start date: 03/01/17 10:16:00 CDT, Duration: 30 day, Stop date: 03/31/17 10:15:00 CDTNotes: (Same as: Melatonin) nebivolol 2.5 mg, 1 tab, No Longer [facility] Route: PO, Drug Active 2016 Medical form: TAB, Center Daily, Dosing Weight 86.591, kg, Start date: 03/01/17 9:00:00 CDT, Duration: 30 day, Stop date: 03/30/17 9:00:00 CDTNotes: Same as: Bystolic senna 8.6 mg 8.6 mg, 1 tab, No Longer [place] oral tablet Route: PO, Drug Active 2016 Medical Form: TAB, Center Dosing Weight 86.591, kg, QNoon, Start date: 02/28/17 12:00:00 CDT, Duration: 30 day, Stop date: 03/29/17 12:00:00 CDTNotes: (Same as: Senotto) Flomax 0.8 mg, 2 cap, No Longer [facility] Route: PO, Drug Active 2016 Medical form: CAP, Center After Breakfast, Dosing Weight 86.591, kg, Priority: NOW, Start date: 02/28/17 10:07:00 CDT, Duration: 30 day, Stop date: 03/30/17 8:30:00 CDTNotes: (Same As: Flomax) "Do Not Crush" Glucagon 1 mg, Route: No Longer [facility] IM, Drug form: Active 2017 Medical PDR/INJ, PRN, Center Dosing Weight 86.591, kg, PRN Blood Glucose Results, Start date: 02/28/17 10:04:00 CDT, Duration: 30 day, Stop date: 03/30/17 10:03:00 CDT Dextrose 50% 25 gm, 50 mL, No Longer [facility] Syringe Route: IVP, Active 2016 Medical Drug Form: INJ, Center Dosing Weight 86.591, kg, PRN, PRN Blood Glucose Results, Start date: 02/28/17 10:04:00 CDT, Duration: 30 day, Stop date: 03/30/17 10:03:00 CDT Insulin Lispro 6 unit, 0.06 No Longer [facility] mL, Route: Active 2017 Medical SUB-Q, Drug [...] Simethicone 80 mg, 1 tab, No Longer [place] Route: CHEW, Active 2016 Medical Drug form: Center CHEWTAB, Q6H, Dosing Weight 86.591, kg, Priority: NOW, Start date: 02/28/17 10:03:00 CDT, Duration: 30 day, Stop date: 03/30/17 6:00:00 CDTNotes: (Same as: Walter) Reglan 10 mg, 2 mL, No Longer [place] Route: IVP, Active 2016 Medical Drug form: INJ, Center Q6Hnow, Dosing Weight 86.591, kg, Priority: NOW, Start date: 02/28/17 10:03:00 CDT, Duration: 3 day, Stop date: 03/03/17 4:03:00 CDTNotes: (Same as: Reglan) D5W 1/2NS 1,000 1,000 mL, Rate: No Longer [place] mL 75 ml/hr, Active 2016 Medical Infuse over: [place] 13.3 hr, Route: IV, Dosing Weight 86.591 kg, Total Volume: 1,000, Start date: 02/28/17 10:00:00 CDT, Duration: 30 day, Stop date: 03/30/17 9:59:00 CDT aspirin 81 mg 81 mg, 1 tab, Inactive [place] tablet, enteric Route: PO, Drug 2016 [facility], Dosing Weight 86.591, kg, Start [...] mg 81 mg, 1 tab, No Longer [place] tablet, enteric Route: PO, Drug Active 2017 Medical coated form: ECTAB, Center Daily, Dosing Weight 86.591, kg, Start date: 02/27/17 13:00:00 CDT, Duration: 30 day, Stop date: 03/29/17 9:00:00 CDTNotes: Do not crush or chew. (Same As: Ecotrin) pantoprazole 40 mg, Route: No Longer [facility] IVP, Drug form: Active 2016 Medical INJ, Daily, Center Dosing Weight 86.591, kg, Start date: 02/27/17 9:00:00 CDT, Duration: 30 day, Stop date: 03/28/17 9:00:00 CDT chlorhexidine 1 appl, Route: Inactive [place] gluconate 40 BATHE, Q-M--, 2017 Medical MG/ML Medicated Drug form: [place] Liquid Soap SOAP, Start date: 02/27/17 9:00:00 CDT, Duration: 30 day, Stop date: 03/27/17 9:00:00 CDTNotes: (Same As: Hibiclens) influenza virus 0.5 mL, Route: Inactive [place] vaccine, IM, Drug Form: 2017 Medical inactivated [...] Zofran 4 mg, 2 mL, No Longer [place] Route: IVP, Active 2016 Medical Drug form: INJ, Center Q8H, Dosing Weight 86.591, kg, PRN Nausea, Start date: 02/27/17 7:43:00 CDT, Duration: 30 day, Stop date: 03/29/17 7:42:00 CDTNotes: (Same as: Thanh) MEDICATION WASTE Product Size: 4 mg Product Wasted: ___ mg Dilaudid 0.2 mg, 0.1 mL, No Longer [place] Route: IVP, Active 2016 Medical Drug form: INJ, Center Q3H, Dosing Weight 86.591, kg, PRN Pain Score 7-10, Start date: 02/27/17 7:42:00 CDT, Duration: 30 day, Stop date: 03/29/17 7:41:00 CDTNotes: Same as: Dilaudid Acetaminophen 10 1,000 mg, Inactive [place] MG/ML Injectable Route: IV, Drug 2016 Medical Solution form: INJ, Q6H, Center Dosing Weight 86.591, kg, For > or=50 kg, Priority: NOW, Start date: 02/27/17 5:45:00 CDT, Duration: 30 day, Stop date: 03/29/17 0:00:00 CDT Morphine 2 mg, 0.5 mL, No Longer [place] Route: IVP, Active 2016 Medical Drug form: [...] Miralax 17 gm, 1 pkt, No Longer [place] Route: PO, Drug Active 2016 Medical form: PWDR, Center Daily, Dosing Weight 86.591, kg, PRN Constipation, Start date: 02/26/17 20:40:00 CDT, Duration: 30 day, Stop date: 03/28/17 20:39:00 CDTNotes: Dissolve in 8 oz of water or juice. (Same as: Miralax) Simethicone 80 mg, 1.2 mL, No Longer [place] Route: PO, Drug Active 2016 Medical form: DROP, Center Q6H, Dosing Weight 86.591, kg, PRN Gas, Start date: 02/26/17 20:40:00 CDT, Duration: 30 day, Stop date: 03/28/17 20:39:00 CDTNotes: (Same as: Mylicon, Phazyme, Genasyme) Metoprolol 5 mg, 5 mL, Inactive [place] Route: IV, Drug 2016 Medical form: INJ, Center ONCE, Dosing Weight 86.591, kg, Priority: NOW, Start date: 02/26/17 20:03:00 CDT, Stop date: 02/26/17 20:03:00 CDTNotes: (Same as: Lopressor) Push over 2 minutes Cefazolin 2 gm, 100 mL, No Longer [facility] Route: IVPB, Active 2016 Medical Drug form: INJ, Center Q8H, Dosing Weight 86.591, kg, Start date: 02/26/17 16:00:00 CDT, Duration: 3 doses or times, Stop date: 02/27/17 8:00:00 CDT, ABX Indication: Surgical ProphylaxisNote s: Same as: Ancef NS (Bolus) IV 1,000 mL, 1,000 Inactive [facility] ml/hr, Infuse 2016 Medical Over: 1 hr, Center Route: IV, 1,000, Drug form: INJ, ONCE, Priority: STAT, Dosing Weight 86.591 kg, Start date: 02/26/17 15:24:00 CDT, Duration: 1 doses or times, Stop date: 02/26/17 15:24:00 CDT Fentanyl 25 microgram, Inactive [place] Route: IVP, 2017 Medical Drug form: INJ, [...] CDTNotes: (Same As: Tums) Calcium Carbonate 500 ld=674 mg elemental calcium Dose= mg calcium carbonate ( mg elemental calcium) Magnesium Oxide 800 mg, 2 tab, No Longer [facility] Route: PO, Drug Active 2016 Medical form: TAB, PRN, Center Dosing Weight 86.591, kg, PRN Abnormal Lab Result, FOR ICU USE ONLY, Start date: 02/26/17 12:40:00 CDT, Duration: 30 day, Stop date: 03/28/17 12:39:00 CDTNotes: (Same as: Mag-Ox 400) Magnesium oxide [id number] elemental magnesium Dose=____mg magnesium oxide (___mg elemental [...] Calcium 1 gm, 10 mL, No Longer [place] Gluconate Route: IVPB, Active 2016 Medical PRN, Dosing Center Weight 86.591, kg, PRN Abnormal Lab Result, Start date: 02/26/17 12:40:00 CDT, Duration: 30 day, Stop date: 03/28/17 12:39:00 CDT, FOR ICU USE ONLYNotes: WASTE: F/P - Sink; E - Municipal Trash Bin sodium phosphate 45 mmol, 15 mL, No Longer [place] Route: IVPB, Active 2016 Medical PRN, Dosing Center Weight 86.591, kg, PRN Abnormal Lab Result, Start date: 02/26/17 12:40:00 CDT, Duration: 30 day, Stop date: 03/28/17 12:39:00 CDT, FOR ICU USE ONLY potassium 30 mmol, 10 mL, No Longer [place] phosphate Route: IVPB, Active 2016 Medical PRN, Dosing Center Weight 86.591, kg, PRN Abnormal Lab Result, Start date: 02/26/17 12:40:00 CDT, Duration: 30 day, Stop date: 03/28/17 12:39:00 CDT, FOR ICU USE ONLYNotes: (Same as: K Phosphate.) 1 mMol phoshate has 1.47 mEq potassium Infuse over 4 hours potassium 2 pkt, Route: No Longer [place] phosphate-sodium PO, Drug Form: Active 2017 Medical [...] Potassium 10 mEq, 50 mL, No Longer [place] Chloride Route: IVPB, Active 2016 Medical Drug form: INJ, Center PRN, Dosing Weight 86.591, kg, PRN Abnormal Lab Result, Via peripheral line, Start date: 02/26/17 12:40:00 CDT, Duration: 30 day, Stop date: 03/28/17 12:39:00 CDT, FOR ICU USE ONLYNotes: (Same as: KCL) Infuse over 2 hours. Dextrose 50% 25 gm, 50 mL, No Longer [place] Syringe Route: IVP, Active 2016 Medical Drug Form: INJ, Center Dosing Weight 86.591, kg, PRN, PRN Blood Glucose Results, Start date: 02/26/17 12:13:00 CDT, Duration: 30 day, Stop date: 03/28/17 12:12:00 CDT Insulin regular 99 mL, Rate: No Longer [place] 100 unit + Start Insulin Active 2016 Medical Drip Per ICU Center Protocol, Dosing Weight 86.591, kg, Route: IVPB, Total Volume: 100, Start Date: 02/26/17 12:13:00 CDT, Duration: 30 day, Stop date: 03/28/17 12:12:00 CDT, Replace Every: 24 hrNotes: Final Concentration 1unit/1ml WASTE: F/P - Black; E - Municipal Trash Bin chlorhexidine 15 mL, Route: No Longer [place] gluconate 1.2 Swab Mouth, Active 2016 Medical MG/ML Mouthwash PRN, Drug form: Center LIQ, PRN Other -See Comment, Start date: 02/26/17 12:09:00 CDT, Duration: 30 day, Stop date: 03/28/17 12:08:00 CDTNotes: (Same As: Peridex) Nitroglycerin 0.4 mg, 1 tab, No Longer [place] Route: SL, Drug Active 2016 Medical form: TAB, Center Q5Min, Dosing Weight 86.591, kg, PRN Chest Pain, Start date: 02/26/17 12:09:00 CDT, Duration: 30 day, Stop date: 03/28/17 12:08:00 CDTNotes: (Same as:Nitroquick, Nitrostat) "Do Not Crush" Sublingual tablet Docusate 100 mg, 1 cap, No Longer [place] Route: PO, Drug Active 2016 Medical form: [...] Stop date: 03/28/17 12:08:00 CDTNotes: (Same as: [place] 325/5) Do not exceed 4gm/day of acetaminophen. Nicardipine 40 mg, 200 mL, No Longer [place] Rate: Titrate, Active 2016 Medical Start Dose: 5 Center mg/hr, Titration: 2.5 mg/hr every 15 minutes, Goal(s): SBP Notes: Same as: Cardene Concentration: (0.2 mg /1 ml ) tranexamic acid Route: IV, Drug Inactive [place] (ANES) form: INJ, 2016 Medical ONCE, Stop Center date: 02/26/17 10:31:00 CDT glycopyrrolate Route: IV, Drug Inactive [place] (ANES) form: INJ, 2016 Medical ONCE, Stop Center date: 02/26/17 9:51:00 CDT protamine (ANES) Route: IV, Drug Inactive [place] form: INJ, 2016 Medical ONCE, Stop Center date: 02/26/17 9:41:00 CDT calcium Route: IV, Drug Inactive [place] gluconate (ANES) form: INJ, 2016 Medical ONCE, Stop Center date: 02/26/17 9:16:00 CDT midazolam (ANES) Route: IV, Drug Inactive [place] form: SOLN, 2016 Medical ONCE, Stop Center date: 02/26/17 9:16:00 CDT sodium Route: IV, Drug Inactive [facility] bicarbonate form: INJ, 2016 Medical (ANES) ONCE, Stop Center date: 02/26/17 9:06:00 CDT heparin (ANES) Route: IV, Drug Inactive [facility] form: INJ, 2016 Medical ONCE, Stop Center date: 02/26/17 8:56:00 CDT lidocaine (ANES) Route: IV, Drug Inactive [facility] form: INJ, 2016 Medical ONCE, Stop Center date: 02/26/17 8:46:00 CDT rocuronium Route: IV, Drug Inactive [facility] (ANES) form: INJ, 2016 Medical ONCE, Stop Center date: 02/26/17 8:46:00 CDT fentaNYL (ANES) Route: IV, Drug Inactive [facility] form: INJ, 2016 Medical ONCE, Stop Center date: 02/26/17 8:46:00 CDT propofol (ANES) Route: IV, Drug Inactive [facility] form: INJ, 2016 Medical ONCE, Stop Center date: 02/26/17 8:46:00 CDT ceFAZolin (ANES) Route: IV, Drug Inactive [facility] form: INJ, 2016 Medical ONCE, Stop Center date: 02/26/17 8:36:00 CDT vancomycin Route: IV, Drug Inactive [facility] (ANES) (ANES) form: INJ, 2016 Medical Start date: Center 02/26/17 7:59:00 CDT, Stop date: 02/26/17 8:59:00 CDT sodium chloride Route: IV, Inactive [facility] 0.9% 1000 ml INJ Total Volume: 2016 Medical (ANES) 1,000, Start Center date: 02/26/17 7:44:00 CDT, Stop date: 02/26/17 8:44:00 CDT Isolyte S (PH Route: IV, Inactive [facility] 7.4) 1000 mL Total Volume: 2016 Medical (ANES) 1,000, Start Center date: 02/26/17 7:30:00 CDT, Stop date: 02/26/17 8:30:00 CDT nebivolol 2.5 MG 2.5 mg=1 tab, No Longer [facility] Oral Tablet PO, Daily, 0 Active 2016 [facility] Refill[facility] Center "Can't remember "Can't remember Active [facility] the name" the name", 2.5 2016 Medical mg=, PO, Daily [place] aspirin 81 mg 81 mg=1 tab, No Longer [facility] tablet, enteric PO, BID Active 2016 [facility] Zyrtec PO, Daily Active [address] Allergies, Adverse Reactions, Alerts Substance Category Reaction Severity Reaction Status Date Comments Source type Reported NKDA Assertion Drug Active allergy Medical Group Immunizations Immunization Date Given Site Status Last Updated Comments Source Results Order Name Results Value Reference Date Interpretation Comments Source Range PARATHYROID Ca Ion WB 1.03 1.05 - 03/03 [facility] PROFILE mMol/L 1. [facility] PARATHYROID Ca Norm WB 1.07 1.05 - 03/03 [facility] PROFILE mMol/L 1. [facility] CHEM PANEL Creatinine 0.76 mg/dL 0.50 - 03/03 [facility] Lvl 1.40 [facility] CHEM PANEL BUN 14 mg/dL 7 - 22 03/03 [facility]2016 [facility] CHEM PANEL Glucose Lvl 103 mg/dL 70 - 99 03/03 [facility] CHEM PANEL AGAP 13.8 meq/L 10.0 - 03/03 [facility] 20.0 [facility] CHEM PANEL Calcium Lvl 6.7 mg/dL 8.5 - 10.5 03/03 Result Comment: [facility] Result(s) called to Christiano Andrews at 03/03/2017 06:55 byJw. Read back OK. CHEM PANEL Potassium Lvl 3.8 meq/L 3.5 - 5.1 03/03 [facility] CHEM PANEL Sodium Lvl 138 meq/L 135 - 145 03/03 [facility] CHEM PANEL CO2 23 meq/L 24 - 32 03/03 [facility]2016 [facility] CHEM PANEL Chloride Lvl 105 meq/L 95 - 109 03/03 [facility]2016 [facility] CHEM PANEL eGFR 89 03/03 Result Comment: The eGFR is calculated using the CKD-EPI formula. In most young, healthy individuals the eGFR will be >90 mL/ min/1.73m2. The eGFR declines with age. An eGFR of 60-89 may be normal in [facility] mL/min/1. some populations, particularly the elderly, for whom the CKD-EPI formula has not been extensively validated. Use of the eGFR is not recommended in the following populations: [address] Individuals with unstable creatinine concentrations, including [...] Phosphorus 1.9 mg/dL 2.5 - 4.5 03/[address] [place] [address] CHEM PANEL Magnesium Lvl 2.6 mg/dL 1.8 - 2.4 03/[address] HEMATOLOGY Lymphocytes 13.1 % 20.0 - 03/03 40.0 [facility] HEMATOLOGY Segs 66.5 % 45.0 - 03/03 [place] 75.0 [facility] HEMATOLOGY Eosinophils # 0.3 K/CMM 0.0 - 0.5 03/[address] [place] [address] HEMATOLOGY Eosinophils 3.6 % 0.0 - 4.0 03/[address] [place] [address] HEMATOLOGY Monocytes 16.3 % 2.0 - 12.0 03/[address] HEMATOLOGY Basophils 0.5 % 0.0 - 1.0 03/[address] [place] [address] HEMATOLOGY Monocytes # 1.2 K/CMM 0.0 - 0.8 03/[address] [place] [address] HEMATOLOGY Lymphocytes # 1.0 K/CMM 1.0 - 5.5 03/[address] [place] [address] HEMATOLOGY Segs-Bands # 4.9 K/CMM 1.5 - 8.1 03/[address] [place] [address] HEMATOLOGY MCH 32.0 pg 27.0 - 03/03 31.0 [facility] HEMATOLOGY MCHC 34.0 g/dL 32.0 - 03/03 [place] 36.0 [facility] HEMATOLOGY MCV 94.0 fL 80.0 - 03/03 [place] 94.0 [facility] HEMATOLOGY MPV 9.1 fL 7.4 - 10.4 03/03 [facility] HEMATOLOGY Platelet 138 K/CMM 133 - 450 03/03 [facility] HEMATOLOGY RDW 14.7 % 11.5 - 03/03 [facility] 14.5 [facility] HEMATOLOGY Hgb 9.2 g/dL 14.0 - 03/03 [facility] 18.0 [facility] HEMATOLOGY Hct 26.9 % 42.0 - 03/03 [facility] 54.0 [facility] HEMATOLOGY WBC 7.3 K/CMM 3.7 - 10.4 03/03 [facility] HEMATOLOGY RBC 2.86 M/CMM 4.70 - 03/03 [place] 6.10 [facility] Chest 1view Chest 1view EXAM: XR CHEST 1 VIEW 03/03 - [facility] DX DX - [facility] DATE: 03/03/2017 3:00 AM CDT Read by: Tom Lion MD Dictated Date/time: 03/03/17 16:51 Electronically Signed by: Tom Lion MD 03/03/17 16:51 FINAL REPORT INDICATION: Coughing - dyspnea TECHNIQUE: AP chest IMPRESSION: Mild to moderate interstitial edema, not significantly changed since yesterday. No pneumothorax given the limitation of a semiupright exam. CHEM PANEL Magnesium Lvl 2.7 mg/dL 1.8 - 2.4 03/02 [facility] CHEM PANEL Phosphorus 1.8 mg/dL 2.5 - 4.5 03/[address] CHEM PANEL eGFR 85 03/02 Result Comment: The eGFR is calculated using the CKD-EPI formula. In most young, healthy individuals the eGFR will be >90 mL/ min/1.73m2. The eGFR declines with age. An eGFR of 60-89 may be normal in [facility] mL/min/1.7 some populations, particularly the elderly, for whom the CKD-EPI formula has not been extensively validated. Use of the eGFR is not recommended in the following populations: [address] Individuals with unstable creatinine concentrations, including [...] CO2 28 meq/L 24 - 32 03/[address] [place] [address] CHEM PANEL Calcium Lvl 8.0 mg/dL 8.5 - 10.5 03/[address] CHEM PANEL Chloride Lvl 104 meq/L 95 - 109 03/[address] CHEM PANEL Potassium Lvl 4.1 meq/L 3.5 - 5.1 03/[address] CHEM PANEL Sodium Lvl 139 meq/L 135 - 145 03/[address] CHEM PANEL BUN 16 mg/dL 7 - 22 03/[address] CHEM PANEL Creatinine 0.83 mg/dL 0.50 - 03/02 [facility] Lvl 1.40 [facility] CHEM PANEL Glucose Lvl 115 mg/dL 70 - 99 03/[address] CHEM PANEL AGAP 11.1 meq/L 10.0 - 03/02 [facility] 20.0 [facility] HEMATOLOGY Segs-Bands # 5.2 K/CMM 1.5 - 8.1 03/[address] [place] [address] HEMATOLOGY Monocytes 16.1 % 2.0 - 12.0 03/[address] HEMATOLOGY Basophils 0.3 % 0.0 - 1.0 03/[address] HEMATOLOGY Eosinophils 3.5 % 0.0 - 4.0 03/[address] HEMATOLOGY Lymphocytes 9.2 % 20.0 - 03/02 [place] 40.0 [facility] HEMATOLOGY Segs 70.9 % 45.0 - 03/02 [place] 75.0 [facility] HEMATOLOGY Eosinophils # 0.3 K/CMM 0.0 - 0.5 03/[address] HEMATOLOGY Lymphocytes # 0.7 K/CMM 1.0 - 5.5 03/[address] HEMATOLOGY Monocytes # 1.2 K/CMM 0.0 - 0.8 03/[address] HEMATOLOGY MCHC 35.0 g/dL 32.0 - 03/02 [facility] 36.0 [facility] HEMATOLOGY RDW 14.9 % 11.5 - 03/02 [facility] 14.5 [facility] HEMATOLOGY Platelet 110 K/CMM 133 - 450 03/02 [place] /2017 [facility] HEMATOLOGY MPV 9.4 fL 7.4 - 10.4 03/02 [facility] HEMATOLOGY RBC 2.82 M/CMM 4.70 - 03/02 6.10 [facility] HEMATOLOGY WBC 7.4 K/CMM 3.7 - 10.4 03/02 [facility] HEMATOLOGY MCH 32.2 pg 27.0 - 03/02 31.0 [facility] HEMATOLOGY MCV 92.2 fL 80.0 - 03/02 [place] 94.0 [facility] HEMATOLOGY Hct 26.0 % 42.0 - 03/02 54.0 [facility] HEMATOLOGY Hgb 9.1 g/dL 14.0 - 03/02 18.0 [facility] HEMATOLOGY INR 1.29 0.85 - 03/01 1.17 [facility] HEMATOLOGY PTT 37.7 s 22.9 - 03/01 [facility] 35.8 [facility] HEMATOLOGY PT 16.3 s 12.0 - 03/01 [facility] 14.7 [facility] PARATHYROID Ca Norm WB 1.04 1.05 - 03/01 [facility] PROFILE mMol/L 1. [facility] [facility] PARATHYROID Ca Ion WB 1.06 1.05 - 03/01 [facility] PROFILE mMol/L 1. [facility] CHEM PANEL Phosphorus 2.1 mg/dL 2.5 - 4.5 03/01 [facility] CHEM PANEL Magnesium Lvl 2.1 mg/dL 1.8 - 2.4 03/01 [facility] CHEM PANEL eGFR 83 03/01 Result Comment: The eGFR is calculated using the CKD-EPI formula. In most young, healthy individuals the eGFR will be >90 mL/ min/1.73m2. The eGFR declines with age. An eGFR of 60-89 may be normal in [facility] mL/min/1 some populations, particularly the elderly, for whom the CKD-EPI formula has not been extensively validated. Use of the eGFR is not recommended in the following populations: [address] Individuals with unstable creatinine concentrations, including [...] Lvl 131 mg/dL 70 - 99 03/[address] CHEM PANEL BUN 17 mg/dL 7 - 22 03/[address] CHEM PANEL Creatinine 0.88 mg/dL 0.50 - 03/01 [facility] Lvl 1.40 [facility] CHEM PANEL Calcium Lvl 7.4 mg/dL 8.5 - 10.5 03/[address] CHEM PANEL Chloride Lvl 103 meq/L 95 - 109 03/[address] CHEM PANEL Sodium Lvl 134 meq/L 135 - 145 03/[address] CHEM PANEL CO2 28 meq/L 24 - 32 03/[address] CHEM PANEL Potassium Lvl 4.1 meq/L 3.5 - 5.1 03/[address] CHEM PANEL AGAP 7.1 meq/L 10.0 - 03/01 [facility] 20. [facility] ELECTROLYTE Potassium Lvl 4.1 meq/L 3.5 - 5.1 03/01 [facility] S [facility] HEMATOLOGY Eosinophils # 0.2 K/CMM 0.0 - 0.5 03/[address] HEMATOLOGY Eosinophils 2.5 % 0.0 - 4.0 03/[address] HEMATOLOGY Basophils 0.5 % 0.0 - 1.0 03/[address] HEMATOLOGY Segs-Bands # 5.3 K/CMM 1.5 - 8.1 03/[address] HEMATOLOGY Lymphocytes # 0.9 K/CMM 1.0 - 5.5 03/[address] HEMATOLOGY Monocytes # 1.3 K/CMM 0.0 - 0.8 03/[address] HEMATOLOGY Segs 68.6 % 45.0 - 03/01 [facility] 75.0 [facility] HEMATOLOGY Lymphocytes 11.4 % 20.0 - 03/01 [facility] 40.0 [facility] HEMATOLOGY Monocytes 17.0 % 2.0 - 12.0 03/[address] HEMATOLOGY MCHC 35.2 g/dL 32.0 - 03/01 [facility] 36.0 [facility] HEMATOLOGY MPV 9.4 fL 7.4 - 10.4 03/01 [facility] HEMATOLOGY RDW 15.1 % 11.5 - 03/01 14.5 [facility] HEMATOLOGY Platelet 88 K/CMM 133 - 450 03/01 2016 [facility] HEMATOLOGY MCH 32.4 pg 27.0 - 03/01 [facility] 31.0 [facility] HEMATOLOGY Hct 24.7 % 42.0 - 03/01 54.0 [facility] HEMATOLOGY MCV 91.8 fL 80.0 - 03/01 [facility] 94.0 [facility] HEMATOLOGY WBC 7.8 K/CMM 3.7 - 10.4 03/01 [facility] HEMATOLOGY RBC 2.69 M/CMM 4.70 - 03/01 [facility] 6.10 [facility] HEMATOLOGY Hgb 8.7 g/dL 14.0 - 03/01 [facility] 18.0 [facility] Chest 1view Chest 1view EXAM: XR CHEST 1 VIEW 03/01 [facility] DATE: 03/02/2017 3:00 AM CDT Read [...] EXAM: XR CHEST 1 VIEW 03/01 - [facility] DATE: 03/01/2017 3:00 AM CDT Read [...] ABO/Rh A POS 02/28 [place] RESULTS /2016 [facility] BLOOD BANK Antibody Scrn Negative 02/28 [facility] RESULTS /2016 Medical (02/28/17 2:39 AM) [place] HEMATOLOGY INR 1.33 0.85 - 02/28 [place] 1.17 [facility] HEMATOLOGY PT 16.7 s 12.0 - 02/28 [place] 14.7 /2016 [facility] HEMATOLOGY PTT 34.3 s 22.9 - 02/28 [place] 35.8 /2016 [facility] PARATHYROID Ca Norm WB 1.10 1.05 - 02/28 [facility] PROFILE mMol/L 1. [facility] PARATHYROID Ca Ion WB 1.11 1.05 - 02/28 [facility] PROFILE mMol/L 1. [facility] Chest 1view Chest 1view EXAM: XR CHEST 1 VIEW 02/28 - [facility] DX DX /2016 - [facility] This report was dictated by a Direct Support Staff/Fellow. I have personally reviewed the images as [...] s 22.9 - 02/27 [place] 35.8 /2016 [facility] Chest 1view Chest 1view EXAM: XR CHEST 1 VIEW 02/27 - [facility] DX DX - Medical This report was dictated by a Direct Support Staff/Fellow. I have personally reviewed the images as [...] yesterday. HEMATOLOGY INR 1.54 0.85 - 02/26 [facility] 1.17 [facility] HEMATOLOGY PT 18.8 s 12.0 - 02/26 [facility] 14.7 [facility] BACTERIAL - MRSA by PCR Negative 02/26 [facility] SEROLOGY Medical (02/26/17 11:24 AM) [place] CHEM PANEL Lactic Acid 5.5 mMol/L 0.5 - 2.2 02/26 Result [facility] Lvl Comment: [facility] Result(s) called to Tom Washington at 02/26/2017 12:21 by ET. Read back OK. HEMATOLOGY RBC Morph Normal 02/26 Medical (02/26/17 11:24 AM) Center HEMATOLOGY Plt Morph Normal 02/26 Medical (02/26/17 11:24 AM) [place] BLOOD BANK Cryo product Product available 02/26 [facility] RESULTS Medical (02/26/17 9:46 AM) Center BLOOD BANK FFP product Product available 02/26 [facility] Medical (02/26/17 9:43 AM) [place] Chest 1view Chest 1view EXAM: XR CHEST 1 VIEW 02/26 - [facility] DX DX /2016 - [facility] DATE: 02/26/2017 11:21 AM CDT Read [...] atelectasis. BLOOD BANK Antibody Scrn Negative 02/25 [facility] (02/25/17 9:42 AM) [place] BLOOD BANK ABO/Rh A POS 02/25 [facility] /2016 [facility] HEMATOLOGY Basophils # 0.1 K/CMM 0.0 - 0.2 02/[address] URINE AND UA Sq Epi None Seen 02/25 [facility]2016 [facility] URINE AND UA <=1.0 0.1 - 1.0 02/25 [facility] Urobilinogen mg/dL /2016 [facility] URINE AND UA Leuk Est Small Negative 02/25 [facility] *ABN* [place] (02/25/17 9:05 AM) URINE AND UA WBC 20 /HPF 0 - 5 02/25 [facility] /2016 [facility] URINE AND UA RBC 3 /HPF 0 - 2 02/25 [facility] /2016 [facility] URINE AND UA Mucus Few /LPF None Seen 02/25 [facility] /LPF /2016 [facility] URINE AND UA Ketones Negative Negative 02/25 [facility] mg/dL mg/dL [facility] URINE AND UA Bili Negative Negative 02/25 [facility] *NA* [place] (02/25/17 9:05 AM) URINE AND UA Blood Negative Negative 02/25 [facility] /2016 [facility] (02/25/17 9:05 AM) [place] URINE AND UA Nitrite Negative Negative 02/25 [facility] (02/25/17 9:05 AM) [place] URINE AND UA Color Yellow Yellow 02/25 [facility] Medical *NA* [place] (02/25/17 9:05 AM) URINE AND UA Turbidity Clear Clear 02/25 [facility] (02/25/17 9:05 AM) [place] URINE AND UA Spec Grav 1.013 <=1.030 02/[address] URINE AND UA Protein Negative Negative 02/25 [facility] mg/dL mg/dL /2016 [facility] URINE AND UA pH 6.0 5.0 - 8.0 02/[address] URINE AND UA Glucose Negative Negative 02/25 [facility] mg/dL mg/dL [facility] Chest 2 Chest 2 views EXAM: XR CHEST 2 VIEWS 02/25 - [facility] views DX DX /2016 - [facility] This report was dictated by a Direct Support Staff/Fellow. I have personally reviewed the images as [...] Comments Source Systolic (mm Hg) 125 03/03/2017 [facility] Diastolic (mm Hg) 58 03/03/2017 [facility] Systolic (mm Hg) 129 03/03/2017 [facility] Diastolic (mm Hg) 62 03/03/2017 [facility] Respitory Rate 18 03/03/2017 [facility] Systolic (mm Hg) 166 03/03/2017 [facility] Diastolic (mm Hg) 70 03/03/2017 [facility] Respitory Rate 20 03/03/2017 [facility] Respitory Rate 24 03/03/2017 [facility] Temperature Oral (F) 98.1 F 03/03/2017 [facility] Temperature Oral (F) 97.9 F 03/03/2017 [facility] Temperature Oral (F) 97.9 F 03/02/2017 [facility] Height 165.1 cm 02/26/2017 [facility] Height 165.1 cm 02/26/2017 [facility] BMI Calculated 31.77 02/26/2017 [facility] Weight 86.591 02/26/2017 [facility] Height 165.1 cm 02/26/2017 [facility] Weight 90.455 02/25/2017 [facility] BMI Calculated 33.18 02/25/2017 [facility] Encounters Location Location Encounter Encounter Reason Attending ADM DC Status Source Details Type Number For Provider Date Date Visit [facility] [id number] German Safi 02/26 03/03 [facility]2016 [facility] Outpatient [id number] VANESA ANAYA 03/11 [facility] Outpatient [id number] TUNG NAKUL 05/21 [facility] Outpatient [id number] AVNESA ANAYA 05/21 [facility] Ambulatory [id number] German Safi 05/21 05/21 [facility] Pre-Reg /2016 Medical [facility] Ambulatory [id number] German Safi 05/21 05/21 Urology Pre-Reg /2016 [facility] Procedures Procedure Code Date Perfomer Comments Source CABG - Coronary [id number] [facility] artery bypass Medical graft Center CEA - Carotid [id number] right [facility] endarterectomy<sup Medical >1</sup> Center Fusion<sup>2</sup> [id number] cervical [facility] Polypectomy [id number] [facility] CABG - Coronary [id number] Medical artery bypass Group graft CEA - Carotid [id number] right [facility] endarterectomy<sup Group >1</sup> Fusion<sup>2</sup> [id number] cervical [facility] Polypectomy [id number] [facility]
--- OUTSIDE RECORDS SUMMARY | 2018-02-12 08:16 | XMS REPORT ---
:1940 Author Organization [facility] Address [address] [place] [address] Dr. Valente [address] [place] [id number] Care Team Providers Name Role Phone MAXINE [...] Comments Text Results Atomic Results Result Comments TISSUE EXAM 2018-02-11 Surgical Pathology Report 15:27:00 Case: [id number] Authorizing Provider: Maxine Marino MD Collected: 02/10/2018 09 Ordering Location: [facility] Received: 02/10/2018 1340 SERVICES Pathologist: Godwin Yin MD Specimens: A) - Ureteral Stent, RIGHT URETERAL STENT FOR ID ONLY B) - Renal Pelvis, RIGHT RENAL PELVIS BIOPSY A. RIGHT URETERAL STENT, REMOVAL: - URETERAL STENT IDENTIFIED (GROSS ONLY)B. RENAL PELVIS, RIGHT, BIOPSY: - BENIGN UROTHELIUM WITH ACUTE AND CHRONIC INFLAMMATION - NEGATIVE FOR DYSPLASIA/CARCINOMA Signing Pathologist Direct Phone Line: [phone] signed by Godwin Yin MD on 02/11/2018 at 3:27 [id number] stone, urinary tract infection without hematuria, hydronephrosis due to obstruction of ureterA. Right ureteral stent; B. Right renal pelvisThe specimen is received in two containers of formalin both labeled with the patient's information. Part A is received without fluid and labeled "right ureteral stent" and consists of a blue stent measuring 38.5 cm in length x 0.3 cm in diameter. The specimen is submitted for gross identification only. Part B labeled "right renal pelvis biopsy" consists of three fragments of doty-red soft tissue ranging from less than 0.1 to 1 cm, submitted entirely B1. CG/pl Performed. CYTOLOGY 2018-02-11 Medical Cytology Report 15:25:00 Case: [id number] Authorizing Provider: Maxine Marino MD Collected: 02/10/2018 1231 Ordering Location: [facility] Received: 02/11/2018 0839 SERVICES Pathologist: Godwin Yin MD Specimen: Renal Pelvis RENAL PELVIS WASHING (CYTOSPINS): - NEGATIVE FOR HIGH GRADE UROTHELIAL MALIGNANCY ACUTE INFLAMMATION IS PRESENT Signing Pathologist Direct Phone Line: [phone] signed by Godwin Yin MD on 02/11/2018 at 3:25 [id number] of hydronephrosis and urinary stones.RENAL PELVIS [id number] mls blood-tinged; 4 cytospinsCollected: [id number]: [id number]ville [facility] [place], [place], [address] [place] [address], [facility], Department of Pathology, [address] [place] [address], [employer] [employer] [place] 2018-02-10 Reason for FINAL REPORT PATIENT ID: OR/30 MINUTE 13:59:00 exam:->uretero [id number] INDICATION: Ureteroscopy INCREMENTS scopy with with laser IMPRESSION: 65 laser fluoroscopic images obtained during a surgical procedure [...] time: 1.28 minutes, 65 images Signed: Bea Mendozaort Verified Date/Time: 02/10/2018 13:59:29 Reading Location: [facility] [id number] Consult Reading Room UE EXAM 2018-01-14 Surgical Pathology Report 10:45:00 Case: [id number] Authorizing Provider: Maxine Marino MD Collected: 01/08/2018 1715 Ordering Location: [facility] Received: 01/09/2018 0810 SERVICES Pathologist: Karey Salas MD Specimen: Ureteral Stent, right nephrostomy tube for ID B.RIGHT NEPHROSTOMY TUBE, REMOVAL:- MEDICAL HARDWARE IDENTIFIED (GROSS ONLY) Signing Pathologist Direct Phone Line: [phone] signed by Karey Salas MD on 01/14/2018 at 10:45 [id number]. Right nephrostomy tubeB.The specimen is received in a fluidless container labeled with patient information and labeled "right nephrostomy tube" and consists of a white tube measuring 30 cm in length x 0.2 cm in diameter. The specimen is submitted for gross identification only. CG/pl n/a BASIC METABOLIC PANEL 2018-01-09 06:17:00 Test Item Value Reference Range Comments SODIUM (BEAKER) (test 137 meq/L 136-145 ujvo=227) POTASSIUM (BEAKER) (test 4.3 meq/L 3.5-5.1 jcuw=774) CHLORIDE (BEAKER) (test 108 meq/L 98-107 nixq=290) CO2 (BEAKER) (test npak=593) 21 meq/L 22-29 BLOOD UREA NITROGEN (BEAKER) 11 mg/dL 7-21 (test svso=619) CREATININE (BEAKER) (test 0.97 mg/dL 0.57-1.25 aixm=267) GLUCOSE RANDOM (BEAKER) 115 mg/dL 70-105 (test oxoo=005) CALCIUM (BEAKER) (test 9.0 mg/dL 8.4-10.2 zanl=097) EGFR (BEAKER) (test 75 mL/min/1.73 sq m ESTIMATED GFR IS NOT gmug=9995) ACCURATE CREATININE CLEARANCE IN PREDICTING GLOMERULAR FILTRATION RATE. ESTIMATED GFR IS NOT APPLICABLE FOR DIALYSIS PATIENTS. CBC W/PLT COUNT & AUTO [id number] 06:09:00 Test Item Value Reference Range Comments WHITE BLOOD CELL COUNT (BEAKER) (test vrdh=868) 8.7 K/ L 3.5-10.5 RED BLOOD CELL COUNT (BEAKER) (test vxnk=077) 3.61 M/ L 4.63-6.08 HEMOGLOBIN (BEAKER) (test koml=625) 10.3 GM/DL 13.7-17.5 HEMATOCRIT (BEAKER) (test llqx=525) 33.5 % 40.1-51.0 MEAN CORPUSCULAR VOLUME (BEAKER) (test pluq=543) 92.8 fL 79.0-92.2 MEAN CORPUSCULAR HEMOGLOBIN (BEAKER) (test 28.5 pg 25.7-32.2 eoqz=704) MEAN CORPUSCULAR HEMOGLOBIN CONC (BEAKER) (test 30.7 GM/DL 32.3-36.5 lfkc=361) RED CELL DISTRIBUTION WIDTH (BEAKER) (test 16.8 % 11.6-14.4 qhta=289) PLATELET COUNT (BEAKER) (test qmpj=370) 114 K/CU MM 150-450 MEAN PLATELET VOLUME (BEAKER) (test omwn=082) 11.1 fL 9.4-12.4 NUCLEATED RED BLOOD CELLS (BEAKER) (test 0 /100 WBC 0-0 vzws=385) NEUTROPHILS RELATIVE PERCENT (BEAKER) (test 66 % jnmq=410) LYMPHOCYTES RELATIVE PERCENT (BEAKER) (test 15 % hgpp=920) MONOCYTES RELATIVE PERCENT (BEAKER) (test 15 % hlgv=940) EOSINOPHILS RELATIVE PERCENT (BEAKER) (test 4 % wddu=347) BASOPHILS RELATIVE PERCENT (BEAKER) (test 1 % bvwp=826) NEUTROPHILS ABSOLUTE COUNT (BEAKER) (test 5.72 K/ L 1.78-5.38 lclr=613) LYMPHOCYTES ABSOLUTE COUNT (BEAKER) (test 1.27 K/ L 1.32-3.57 qfci=399) MONOCYTES ABSOLUTE COUNT (BEAKER) (test 1.27 K/ L 0.30-0.82 iwre=072) EOSINOPHILS ABSOLUTE COUNT (BEAKER) (test 0.34 K/ L 0.04-0.54 eiql=419) BASOPHILS ABSOLUTE COUNT (BEAKER) (test 0.06 K/ L 0.01-0.08 txtp=231) IMMATURE GRANULOCYTES-RELATIVE PERCENT (BEAKER) 1 % 0-1 (test homn=3665) FL, COMBINATION MACHINE TOOL SETTER IN OR/30 MINUTE [id number] 20:57:00Reason for exam:-> PYELOGRAMFINAL REPORT Examination: Retrograde pyelography 113 fluoroscopic spot viewswere obtained during the procedure by the ordering service. Images are nondiagnostic as no radiologist was present at the time of imaging. Fluoroscopic time was 2.5 minutes. Please see the procedurereport for details. Signed: Earnest Rao MDReport Verified Date/Time: 01/08/2018 20:57:50 Reading Location: [address] Reading Room Electronically signed by: EARNEST RAO M.D. on01/08/2018 08:57 PMTHE [facility] METABOLIC [id number] 18:42:00 Test Item Value Reference Range Comments SODIUM (BEAKER) (test 138 meq/L 136-145 mpbw=711) POTASSIUM (BEAKER) (test 4.5 meq/L 3.5-5.1 uqav=690) CHLORIDE (BEAKER) (test 108 meq/L 98-107 nxkq=312) CO2 (BEAKER) (test 23 meq/L 22-29 ylex=654) BLOOD UREA NITROGEN 10 mg/dL 7-21 (BEAKER) (test hpoy=351) CREATININE (BEAKER) (test 0.94 mg/dL 0.57-1.25 bceu=863) GLUCOSE RANDOM (BEAKER) 125 mg/dL 70-105 (test bcio=554) CALCIUM (BEAKER) (test 9.2 mg/dL 8.4-10.2 iejp=564) EGFR (BEAKER) (test 78 mL/min/1.73 sq m ESTIMATED GFR IS NOT qodj=8707) ACCURATE CREATININE CLEARANCE IN PREDICTING GLOMERULAR FILTRATION RATE. ESTIMATED GFR IS NOT APPLICABLE FOR DIALYSIS PATIENTS. BASIC METABOLIC [id number] 18:41:00 Test Item Value Reference Range Comments SODIUM (BEAKER) (test 137 meq/L 136-145 hwal=107) POTASSIUM (BEAKER) (test 4.0 meq/L 3.5-5.1 kqmr=921) CHLORIDE (BEAKER) (test 107 meq/L 98-107 rbuk=814) CO2 (BEAKER) (test 22 meq/L 22-29 qrht=730) BLOOD UREA NITROGEN 13 mg/dL 7-21 (BEAKER) (test ybbt=201) CREATININE (BEAKER) (test 0.96 mg/dL 0.57-1.25 viuj=505) GLUCOSE RANDOM (BEAKER) 120 mg/dL 70-105 (test ahxk=987) CALCIUM (BEAKER) (test 9.3 mg/dL 8.4-10.2 pxrk=088) EGFR (BEAKER) (test 76 mL/min/1.73 sq m ESTIMATED GFR IS NOT ajiw=6186) ACCURATE CREATININE CLEARANCE IN PREDICTING GLOMERULAR FILTRATION RATE. ESTIMATED GFR IS NOT APPLICABLE FOR DIALYSIS PATIENTS. CBC W/PLT COUNT & AUTO [id number] 18:17:00 Test Item Value Reference Range Comments WHITE BLOOD CELL COUNT (BEAKER) (test jkuc=440) 7.7 K/ L 3.5-10.5 RED BLOOD CELL COUNT (BEAKER) (test yrer=603) 3.51 M/ L 4.63-6.08 HEMOGLOBIN (BEAKER) (test cbby=328) 10.1 GM/DL 13.7-17.5 HEMATOCRIT (BEAKER) (test ogwg=109) 32.4 % 40.1-51.0 MEAN CORPUSCULAR VOLUME (BEAKER) (test tamr=707) 92.3 fL 79.0-92.2 MEAN CORPUSCULAR HEMOGLOBIN (BEAKER) (test 28.8 pg 25.7-32.2 ayds=971) MEAN CORPUSCULAR HEMOGLOBIN CONC (BEAKER) (test 31.2 GM/DL 32.3-36.5 satn=955) RED CELL DISTRIBUTION WIDTH (BEAKER) (test 16.6 % 11.6-14.4 xmvy=094) PLATELET COUNT (BEAKER) (test exlq=944) 128 K/CU MM 150-450 MEAN PLATELET VOLUME (BEAKER) (test fndy=533) 11.3 fL 9.4-12.4 NUCLEATED RED BLOOD CELLS (BEAKER) (test 0 /100 WBC 0-0 kwoy=368) NEUTROPHILS RELATIVE PERCENT (BEAKER) (test 66 % lhym=719) LYMPHOCYTES RELATIVE PERCENT (BEAKER) (test 13 % qaoa=802) MONOCYTES RELATIVE PERCENT (BEAKER) (test 15 % tlbe=020) EOSINOPHILS RELATIVE PERCENT (BEAKER) (test 5 % lbrq=588) BASOPHILS RELATIVE PERCENT (BEAKER) (test 1 % wcgo=688) NEUTROPHILS ABSOLUTE COUNT (BEAKER) (test 5.05 K/ L 1.78-5.38 hgqx=732) LYMPHOCYTES ABSOLUTE COUNT (BEAKER) (test 1.01 K/ L 1.32-3.57 xijx=607) MONOCYTES ABSOLUTE COUNT (BEAKER) (test 1.13 K/ L 0.30-0.82 uddj=455) EOSINOPHILS ABSOLUTE COUNT (BEAKER) (test 0.41 K/ L 0.04-0.54 bpga=594) BASOPHILS ABSOLUTE COUNT (BEAKER) (test 0.04 K/ L 0.01-0.08 rhay=978) IMMATURE GRANULOCYTES-RELATIVE PERCENT (BEAKER) 0 % 0-1 (test hhww=7989) URINE [id number] 10:16:00 Test Item Value Reference Range Comments CULTURE (BEAKER) (test PROTEUS MIRABILIS >100,000 col/mL Proteus elcm=2070) mirabilis Amikacin (test code=1) Ampicillin + Sulbactam (test code=6) Aztreonam (test code=32) Cefepime (test code=51) Cefoxitin (test code=68) Ceftazidime (test code=27) Ceftriaxone (test code=52) Ertapenem (test code=38) Gentamicin (test code=18) Levofloxacin (test code=22) Meropenem (test code=34) Nitrofurantoin (test code=23) Piperacillin + Tazobactam (test code=29) Tetracycline (test code=2) Tobramycin (test code=25) Trimethoprim + Sulfamethoxazole (test code=47) CULTURE (BEAKER) (test >100,000 col/mL Same bmqd=6232) organism has been isolated from cultures(s) of the same body site and collection date. Repeat identification and susceptibility testing performed only after consultation with the clinical microbiology laboratory.Refer to previous culture ofPseudomonas aeruginosa >100,000 col/mL skin albin<10,000 col/mL Gram negative chrissie of a 3rd typeURINE [id number] 10:13:00 Test Item Value Reference Range Comments CULTURE (BEAKER) (test ESCHERICHIA COLI >100,000 col/mL klyd=8231) Escherichia coli Amikacin (test code=1) Ampicillin + Sulbactam (test code=6) Aztreonam (test code=32) Cefepime (test code=51) Cefoxitin (test code=68) Ceftazidime (test code=27) Ceftriaxone (test code=52) Ertapenem (test code=38) Gentamicin (test code=18) Levofloxacin (test code=22) Meropenem (test code=34) Nitrofurantoin (test code=23) Piperacillin + Tazobactam (test code=29) Tetracycline (test code=2) Tobramycin (test code=25) Trimethoprim + Sulfamethoxazole (test code=47) CULTURE (BEAKER) (test >100,000 col/mL Same eoyr=7907) organism has been isolated from cultures(s) of the same body site and collection date. Repeat identification and susceptibility testing performed only after consultation with the clinical microbiology laboratory.Refer to previous culture ofProteus mirabilis CULTURE (BEAKER) (test >100,000 col/mL deew=1577) Pseudomonas aeruginosa CBC W/PLT COUNT & AUTO [id number] 11:42:00 Test Item Value Reference Range Comments WHITE BLOOD CELL COUNT (BEAKER) (test udzq=818) 9.2 K/ L 3.5-10.5 RED BLOOD CELL COUNT (BEAKER) (test ftls=063) 3.31 M/ L 4.63-6.08 HEMOGLOBIN (BEAKER) (test uoyq=030) 9.6 GM/DL 13.7-17.5 HEMATOCRIT (BEAKER) (test lfuj=670) 30.2 % 40.1-51.0 MEAN CORPUSCULAR VOLUME (BEAKER) (test bfow=684) 91.2 fL 79.0-92.2 MEAN CORPUSCULAR HEMOGLOBIN (BEAKER) (test 29.0 pg 25.7-32.2 ucsg=556) MEAN CORPUSCULAR HEMOGLOBIN CONC (BEAKER) (test 31.8 GM/DL 32.3-36.5 gyfs=291) RED CELL DISTRIBUTION WIDTH (BEAKER) (test 16.7 % 11.6-14.4 hxco=276) PLATELET COUNT (BEAKER) (test pmkk=609) 127 K/CU MM 150-450 MEAN PLATELET VOLUME (BEAKER) (test qcrd=968) 11.1 fL 9.4-12.4 NUCLEATED RED BLOOD CELLS (BEAKER) (test 0 /100 WBC 0-0 djvh=975) (CELLAVISION MANUAL DIFF)2017-12-18 11:42:00 Test Item Value Reference Range Comments NEUTROPHILS - REL (CELLAVISION)(BEAKER) (test 73 % leoa=1646) LYMPHOCYTES - REL (CELLAVISION)(BEAKER) (test 17 % egri=9896) MONOCYTES - REL (CELLAVISION)(BEAKER) (test 8 % tqsw=6395) EOSINOPHILS - REL (CELLAVISION)(BEAKER) (test 2 % isey=8456) NEUTROPHILS - ABS (CELLAVISION)(BEAKER) (test 6.72 K/ul 1.78-5.38 ubkr=3329) LYMPHOCYTES - ABS (CELLAVISION)(BEAKER) (test 1.56 K/ul 1.32-3.57 ejwo=6652) MONOCYTES - ABS (CELLAVISION)(BEAKER) (test 0.74 K/uL 0.30-0.82 drhc=0733) EOSINOPHILS - ABS (CELLAVISION)(BEAKER) (test 0.18 K/uL 0.04-0.54 xjkq=2436) TOTAL COUNTED (BEAKER) (test hpki=2828) 100 WBC MORPHOLOGY (BEAKER) (test pmqi=017) Normal PLT MORPHOLOGY (BEAKER) (test zufx=952) Normal POLYCHROMATOPHILLIC RBCS(BEAKER) (test kbrl=414) 1+ few ANISOCYTOSIS (BEAKER) (test twlh=212) 1+ few ARTIFACT (CELLAVISION)(BEAKER) (test xhnq=6781) Present PLATELET CONCENTRATION (CELLAVISION)(BEAKER) (test Decreased hlfk=5311) Received comment: User comments: Slide comments:ANG, DRAINAGE [...] Physician intra- service time was 30 minutes. Set Up And Lay Out Inspector: Uriah Johnston MD. Educational Diagnostician: Jas Approach: Existing right nephrostomy Estimated blood [...] the wire through the catheter. A 9 [place] sheath was advanced over the catheter and into thekidney. The catheter is able to be removed through the sheath. A guidewire was then inserted throughthe sheath and coiled within the renal pelvis. The sheath was removed and a new 8.5 [place] catheter was advanced over the guidewire and [...] Johnston MDReport Verified Date/Time: 12/18/201710:11:33 Reading Location: [facility] Diagnostic Imaging Reading Room - [facility] 1.310.12 Electronically signed by: URIAH JOHNSTON on 2017 10:11 [id number] 06:14:00 Test Item Value Reference Range Comments MAGNESIUM (BEAKER) (test dsxo=820) 2.2 mg/dL 1.6-2.6 BASIC METABOLIC [id number] 06:14:00 Test Item Value Reference Range Comments SODIUM (BEAKER) (test 134 meq/L 136-145 dtkq=282) POTASSIUM (BEAKER) (test 4.0 meq/L 3.5-5.1 gpfe=335) CHLORIDE (BEAKER) (test 104 meq/L 98-107 elwz=735) CO2 (BEAKER) (test 21 meq/L 22-29 rbhz=757) BLOOD UREA NITROGEN 18 mg/dL 7-21 (BEAKER) (test yxad=854) CREATININE (BEAKER) (test 0.96 mg/dL 0.57-1.25 eqgp=454) GLUCOSE RANDOM (BEAKER) 111 mg/dL 70-105 (test qvny=674) CALCIUM (BEAKER) (test 9.2 mg/dL 8.4-10.2 cfyq=147) EGFR (BEAKER) (test 76 mL/min/1.73 sq m ESTIMATED GFR IS NOT evaa=0499) ACCURATE CREATININE CLEARANCE IN PREDICTING GLOMERULAR FILTRATION RATE. ESTIMATED GFR IS NOT APPLICABLE FOR DIALYSIS PATIENTS. CBC W/PLT COUNT & AUTO [id number] 09:56:00 Test Item Value Reference Range Comments WHITE BLOOD CELL COUNT (BEAKER) (test ayrf=733) 11.6 K/ L 3.5-10.5 RED BLOOD CELL COUNT (BEAKER) (test cdyc=274) 3.31 M/ L 4.63-6.08 HEMOGLOBIN (BEAKER) (test orig=006) 9.3 GM/DL 13.7-17.5 HEMATOCRIT (BEAKER) (test gysu=264) 30.2 % 40.1-51.0 MEAN CORPUSCULAR VOLUME (BEAKER) (test gdqr=227) 91.2 fL 79.0-92.2 MEAN CORPUSCULAR HEMOGLOBIN (BEAKER) (test 28.1 pg 25.7-32.2 bcbk=202) MEAN CORPUSCULAR HEMOGLOBIN CONC (BEAKER) (test 30.8 GM/DL 32.3-36.5 oaoc=348) RED CELL DISTRIBUTION WIDTH (BEAKER) (test 16.6 % 11.6-14.4 rkax=657) PLATELET COUNT (BEAKER) (test kitw=353) 130 K/CU MM 150-450 MEAN PLATELET VOLUME (BEAKER) (test bcwa=401) 11.5 fL 9.4-12.4 NUCLEATED RED BLOOD CELLS (BEAKER) (test 0 /100 WBC 0-0 dqqf=503) (CELLAVISION MANUAL DIFF)2017-12-17 09:56:00 Test Item Value Reference Range Comments NEUTROPHILS - REL (CELLAVISION)(BEAKER) (test 83 % flro=8365) LYMPHOCYTES - REL (CELLAVISION)(BEAKER) (test 8 % dezw=7009) MONOCYTES - REL (CELLAVISION)(BEAKER) (test 7 % bble=3260) BASOPHILS - REL (CELLAVISION)(BEAKER) (test 1 % mqfe=5597) BANDS - REL (CELLAVISION)(BEAKER) (test htvk=0449) 1 % 0-10 NEUTROPHILS - ABS (CELLAVISION)(BEAKER) (test 9.63 K/ul 1.78-5.38 ifjn=5682) LYMPHOCYTES - ABS (CELLAVISION)(BEAKER) (test 0.93 K/ul 1.32-3.57 twta=7061) MONOCYTES - ABS (CELLAVISION)(BEAKER) (test 0.81 K/uL 0.30-0.82 pyzn=8308) BASOPHILS - ABS (CELLAVISION)(BEAKER) (test 0.12 K/uL 0.01-0.08 daqk=5016) BANDS - ABS (CELLAVISION)(BEAKER) (test drsr=5034) 0.12 K/uL 0.00-0.80 TOTAL COUNTED (BEAKER) (test efxg=6497) 100 RBC MORPHOLOGY (BEAKER) (test debi=172) Normal WBC MORPHOLOGY (BEAKER) (test fawt=882) Normal PLT MORPHOLOGY (BEAKER) (test zycw=347) Normal ARTIFACT (CELLAVISION)(BEAKER) (test famm=3156) Present PLATELET CONCENTRATION (CELLAVISION)(BEAKER) (test Decreased frni=5516) Received comment: User comments: Slide comments:[id number] 05:58:00 Test Item Value Reference Range Comments MAGNESIUM (BEAKER) (test mwsh=754) 1.9 mg/dL 1.6-2.6 BASIC METABOLIC [id number] 05:58:00 Test Item Value Reference Range Comments SODIUM (BEAKER) (test 136 meq/L 136-145 pgqz=944) POTASSIUM (BEAKER) (test 4.1 meq/L 3.5-5.1 lpde=563) CHLORIDE (BEAKER) (test 105 meq/L 98-107 toiq=775) CO2 (BEAKER) (test 22 meq/L 22-29 zqdr=194) BLOOD UREA NITROGEN 20 mg/dL 7-21 (BEAKER) (test fmso=411) CREATININE (BEAKER) (test 1.03 mg/dL 0.57-1.25 xjnp=476) GLUCOSE RANDOM (BEAKER) 124 mg/dL 70-105 (test hmcr=568) CALCIUM (BEAKER) (test 9.0 mg/dL 8.4-10.2 rvdh=593) EGFR (BEAKER) (test 70 mL/min/1.73 sq m ESTIMATED GFR IS NOT ogas=5920) ACCURATE CREATININE CLEARANCE IN PREDICTING GLOMERULAR FILTRATION RATE. ESTIMATED GFR IS NOT APPLICABLE FOR DIALYSIS PATIENTS. URINALYSIS W/ [id number] 11:48:00 Test Item Value Reference Range Comments COLOR (BEAKER) (test ajhd=916) Yellow CLARITY (BEAKER) (test biya=309) Cloudy SPECIFIC GRAVITY UA (BEAKER) (test 1.012 1.001-1.035 srdf=621) PH UA (BEAKER) (test fbqb=922) 8.5 5.0-8.0 PROTEIN UA (BEAKER) (test whul=420) >600 mg/dL Negative GLUCOSE UA (BEAKER) (test zmfg=032) Negative Negative KETONES UA (BEAKER) (test wlfj=879) Negative Negative BILIRUBIN UA (BEAKER) (test sveh=527) Negative Negative BLOOD UA (BEAKER) (test kgkt=843) Small Negative NITRITE UA (BEAKER) (test yrof=376) Negative Negative LEUKOCYTE ESTERASE UA (BEAKER) (test Large Negative huoz=660) UROBILINOGEN UA (BEAKER) (test gtrn=084) 0.2 mg/dL 0.2-1.0 RBC UA (BEAKER) (test ngfi=903) 16 /HPF WBC UA (BEAKER) (test bkyc=119) 0 /HPF MUCUS (BEAKER) (test fxjn=7831) Few SQUAMOUS EPITHELIAL (BEAKER) (test 4 /HPF wgiq=164) CRYSTALS, URINE (BEAKER) (test ghcl=8949) Many TRIPLE PHOSPHATE CRYSTALS (BEAKER) (test Few fzqy=7367) URIC ACID CRYSTALS (BEAKER) (test Moderate qomg=8709) YEAST (BEAKER) (test oifj=8286) Many SOURCE(BEAKER) (test hpfl=2315) Urine, Nephrostomy URINALYSIS W/ [id number] 11:35:00 Test Item Value Reference Range Comments COLOR (BEAKER) (test kpwr=359) Yellow CLARITY (BEAKER) (test nklp=368) Cloudy SPECIFIC GRAVITY UA (BEAKER) (test urnp=872) 1.014 1.001-1.035 PH UA (BEAKER) (test qyjs=962) 8.0 5.0-8.0 PROTEIN UA (BEAKER) (test igjk=562) 200 mg/dL Negative GLUCOSE UA (BEAKER) (test chrb=715) Negative Negative KETONES UA (BEAKER) (test fcgz=239) Negative Negative BILIRUBIN UA (BEAKER) (test fdud=193) Negative Negative BLOOD UA (BEAKER) (test wdep=835) Moderate Negative NITRITE UA (BEAKER) (test bmud=526) Positive Negative LEUKOCYTE ESTERASE UA (BEAKER) (test yaro=702) Large Negative UROBILINOGEN UA (BEAKER) (test muan=765) 0.2 mg/dL 0.2-1.0 RBC UA (BEAKER) (test wbap=110) 3 /HPF WBC UA (BEAKER) (test btti=109) > /HPF BACTERIA (BEAKER) (test djyj=656) Moderate SOURCE(BEAKER) (test jawq=7626) Urine, Voided CBC W/PLT COUNT & AUTO [id number] 10:12:00 Test Item Value Reference Range Comments WHITE BLOOD CELL COUNT (BEAKER) (test nusx=008) 12.5 K/ L 3.5-10.5 RED BLOOD CELL COUNT (BEAKER) (test uair=999) 4.14 M/ L 4.63-6.08 HEMOGLOBIN (BEAKER) (test zvsx=642) 11.5 GM/DL 13.7-17.5 HEMATOCRIT (BEAKER) (test qize=860) 37.6 % 40.1-51.0 MEAN CORPUSCULAR VOLUME (BEAKER) (test jnbm=935) 90.8 fL 79.0-92.2 MEAN CORPUSCULAR HEMOGLOBIN (BEAKER) (test 27.8 pg 25.7-32.2 sias=749) MEAN CORPUSCULAR HEMOGLOBIN CONC (BEAKER) (test 30.6 GM/DL 32.3-36.5 eued=357) RED CELL DISTRIBUTION WIDTH (BEAKER) (test 16.1 % 11.6-14.4 aqnv=450) PLATELET COUNT (BEAKER) (test evea=003) 152 K/CU MM 150-450 MEAN PLATELET VOLUME (BEAKER) (test bdus=643) 10.3 fL 9.4-12.4 NUCLEATED RED BLOOD CELLS (BEAKER) (test 0 /100 WBC 0-0 stgy=573) (CELLAVISION MANUAL DIFF)2017-12-16 10:12:00 Test Item Value Reference Range Comments NEUTROPHILS - REL (CELLAVISION)(BEAKER) (test 83 % hcpu=7136) LYMPHOCYTES - REL (CELLAVISION)(BEAKER) (test 3 % jffg=5782) MONOCYTES - REL (CELLAVISION)(BEAKER) (test 7 % vpgb=5183) BANDS - REL (CELLAVISION)(BEAKER) (test 7 % 0-10 hmky=4443) NEUTROPHILS - ABS (CELLAVISION)(BEAKER) (test 10.38 K/ul 1.78-5.38 uzts=5095) LYMPHOCYTES - ABS (CELLAVISION)(BEAKER) (test 0.38 K/ul 1.32-3.57 fark=8023) MONOCYTES - ABS (CELLAVISION)(BEAKER) (test 0.88 K/uL 0.30-0.82 nvoj=4072) BANDS - ABS (CELLAVISION)(BEAKER) (test 0.88 K/uL 0.00-0.80 doly=0224) TOTAL COUNTED (BEAKER) (test bydu=6823) 100 WBC MORPHOLOGY (BEAKER) (test oond=050) Normal PLT MORPHOLOGY (BEAKER) (test qzuf=139) Normal POLYCHROMATOPHILLIC RBCS(BEAKER) (test jurt=144) 1+ few ANISOCYTOSIS (BEAKER) (test sdia=677) 1+ few ARTIFACT (CELLAVISION)(BEAKER) (test uwhi=1736) Present PLATELET CONCENTRATION (CELLAVISION)(BEAKER) Adequate (test wmie=3669) Received comment: User comments: Slide comments:BASIC METABOLIC [id number] 09:50:00 Test Item Value Reference Range Comments SODIUM (BEAKER) (test 136 meq/L 136-145 onou=245) POTASSIUM (BEAKER) (test 4.5 meq/L 3.5-5.1 goea=531) CHLORIDE (BEAKER) (test 105 meq/L 98-107 syya=769) CO2 (BEAKER) (test 22 meq/L 22-29 zqoj=868) BLOOD UREA NITROGEN 21 mg/dL 7-21 (BEAKER) (test hmbb=901) CREATININE (BEAKER) (test 1.01 mg/dL 0.57-1.25 noan=457) GLUCOSE RANDOM (BEAKER) 149 mg/dL 70-105 (test otzg=203) CALCIUM (BEAKER) (test 9.6 mg/dL 8.4-10.2 ipuc=582) EGFR (BEAKER) (test 72 mL/min/1.73 sq m ESTIMATED GFR IS NOT lync=5318) ACCURATE CREATININE CLEARANCE IN PREDICTING GLOMERULAR FILTRATION RATE. ESTIMATED GFR IS NOT APPLICABLE FOR DIALYSIS PATIENTS. RAD, CHEST, 1 VIEW, NON [id number] 08:15:00Reason for exam:->Post-op TAVR with linesShould this [...] MDReport Verified Date/Time: 09/20/2017 08:15:10 Reading Location: [facility] Radiology Reading Room [id number] 04:05:00 Test Item Value Reference Range Comments PHOSPHORUS (BEAKER) (test qnyp=079) 2.5 mg/dL 2.3-4.7 [id number] 04:05:00 Test Item Value Reference Range Comments MAGNESIUM (BEAKER) (test wcqq=975) 1.8 mg/dL 1.6-2.6 BASIC METABOLIC [id number] 04:05:00 Test Item Value Reference Range Comments SODIUM (BEAKER) (test 137 meq/L 136-145 hbea=204) POTASSIUM (BEAKER) (test 3.9 meq/L 3.5-5.1 sszx=309) CHLORIDE (BEAKER) (test 106 meq/L 98-107 bymu=932) CO2 (BEAKER) (test 25 meq/L 22-29 qenp=876) BLOOD UREA NITROGEN 17 mg/dL 7-21 (BEAKER) (test waoj=735) CREATININE (BEAKER) (test 0.81 mg/dL 0.57-1.25 biba=799) GLUCOSE RANDOM (BEAKER) 121 mg/dL 70-105 (test icrh=215) CALCIUM (BEAKER) (test 8.3 mg/dL 8.4-10.2 qqpv=925) EGFR (BEAKER) (test 93 mL/min/1.73 sq m ESTIMATED GFR IS NOT ajbo=7401) ACCURATE CREATININE CLEARANCE IN PREDICTING GLOMERULAR FILTRATION RATE. ESTIMATED GFR IS NOT APPLICABLE FOR DIALYSIS PATIENTS. [id number] 04:01:00 Test Item Value Reference Range Comments PARTIAL THROMBOPLASTIN TIME (BEAKER) (test 30.3 seconds 22.5-36.0 tdcr=832) PROTHROMBIN TIME/[id number] 04:00:00 Test Item Value Reference Range Comments PROTIME (BEAKER) (test snob=345) 15.3 seconds 11.7-14.7 INR (BEAKER) (test wozd=588) 1.2 <=5.9 RECOMMENDED COUMADIN/WARFARIN INR THERAPY RANGESSTANDARD DOSE: 2.0 - 3.0 Includes: PROPHYLAXIS forvenous thrombosis, systemic embolization; TREATMENT for venous thrombosis and/or pulmonary embolus.HIGH RISK: Target INR is 2.5-3.5 for patients with mechanical heart valves.CBC (HEMOGRAM ONLY)2017-09-20 03:44:00 Test Item Value Reference Range Comments WHITE BLOOD CELL COUNT (BEAKER) (test gsyr=271) 9.5 K/ L 3.5-10.5 RED BLOOD CELL COUNT (BEAKER) (test fuzx=203) 3.13 M/ L 4.63-6.08 HEMOGLOBIN (BEAKER) (test xgrt=469) 9.1 GM/DL 13.7-17.5 HEMATOCRIT (BEAKER) (test srql=385) 28.4 % 40.1-51.0 MEAN CORPUSCULAR VOLUME (BEAKER) (test gecw=983) 90.7 fL 79.0-92.2 MEAN CORPUSCULAR HEMOGLOBIN (BEAKER) (test 29.1 pg 25.7-32.2 oldb=165) MEAN CORPUSCULAR HEMOGLOBIN CONC (BEAKER) (test 32.0 GM/DL 32.3-36.5 wuzt=908) RED CELL DISTRIBUTION WIDTH (BEAKER) (test 16.5 % 11.6-14.4 jhrc=754) PLATELET COUNT (BEAKER) (test kslt=367) 83 K/CU MM 150-450 MEAN PLATELET VOLUME (BEAKER) (test phet=932) 10.7 fL 9.4-12.4 NUCLEATED RED BLOOD CELLS (BEAKER) (test 0 /100 WBC 0-0 pkaa=721) POCT-GLUCOSE [id number] 13:47:00 Test Item Value Reference Range Comments POC-GLUCOSE METER (BEAKER) 144 mg/dL 70-110 TESTED AT [address] (test uwut=2840) [facility] [address] RAD, CHEST, 1 VIEW, NON [id number] 04:48:00Reason for exam:->Post-op TAVR with linesShould this be performed at the bedside?->YesFINAL REPORT CLINICAL INDICATION: Postop Comparison: 09/18/2017 The cardiomediastinal contours are stable. Central pulmonary vascular congestion and bilateral parenchymal opacities are unchanged. There is no pneumothorax. Support lines are stable. Signed: Earnest Rao MDReport Verified Date/Time: 04:48:24 Reading Location: [address] Reading Room BLOOD GAS, [id number] 04:37:00 Test Item Value Reference Range Comments PH ARTERIAL (BEAKER) (test ouen=754) 7.43 7.35-7.45 PCO2 ARTERIAL (BEAKER) (test xqrn=907) 39 mmHg 35-45 PO2 ARTERIAL (BEAKER) (test qilu=535) 112 mmHg 80-90 O2 SATURATION ARTERIAL (BEAKER) (test vthw=087) 98.1 % 96.0-97.0 HCO3 ARTERIAL (BEAKER) (test qkwd=745) 25 mmol/L 21-29 BASE EXCESS ARTERIAL (BEAKER) (test xqtu=730) 0.8 mmol/L -2.0-3.0 PATIENT TEMPERATURE (BEAKER) (test qsdr=9363) 37.6 C FIO2 (BEAKER) (test sulh=1945) 30.0 % Daily ABG with morning labs while patient is intubated.[id number] 04: 27:00 Test Item Value Reference Range Comments PHOSPHORUS (BEAKER) (test muzy=637) 3.6 mg/dL 2.3-4.7 [id number] 04:27:00 Test Item Value Reference Range Comments MAGNESIUM (BEAKER) (test fwkn=625) 1.4 mg/dL 1.6-2.6 BASIC METABOLIC [id number] 04:27:00 Test Item Value Reference Range Comments SODIUM (BEAKER) (test 134 meq/L 136-145 cmkm=493) POTASSIUM (BEAKER) (test 4.3 meq/L 3.5-5.1 eyyc=243) CHLORIDE (BEAKER) (test 105 meq/L 98-107 cnxo=701) CO2 (BEAKER) (test 24 meq/L 22-29 igco=631) BLOOD UREA NITROGEN 14 mg/dL 7-21 (BEAKER) (test ywxd=413) CREATININE (BEAKER) (test 0.80 mg/dL 0.57-1.25 lizi=250) GLUCOSE RANDOM (BEAKER) 134 mg/dL 70-105 (test aimw=077) CALCIUM (BEAKER) (test 8.3 mg/dL 8.4-10.2 uabb=368) EGFR (BEAKER) (test 94 mL/min/1.73 sq m ESTIMATED GFR IS NOT eote=2184) ACCURATE CREATININE CLEARANCE IN PREDICTING GLOMERULAR FILTRATION RATE. ESTIMATED GFR IS NOT APPLICABLE FOR DIALYSIS PATIENTS. PROTHROMBIN [id number] 04:14:00 Test Item Value Reference Range Comments PROTIME (BEAKER) (test qxay=750) 16.5 seconds 11.7-14.7 INR (BEAKER) (test vrpa=277) 1.3 <=5.9 RECOMMENDED COUMADIN/WARFARIN INR THERAPY RANGESSTANDARD DOSE: 2.0 - 3.0 Includes: PROPHYLAXIS forvenous thrombosis, systemic embolization; TREATMENT for venous thrombosis and/or pulmonary embolus.HIGH RISK: Target INR is 2.5-3.5 for patients with mechanical heart valves.[id number] 04:14:00 Test Item Value Reference Range Comments PARTIAL THROMBOPLASTIN TIME (BEAKER) (test 32.7 seconds 22.5-36.0 eakk=625) CBC (HEMOGRAM ONLY)2017-09-19 04:03:00 Test Item Value Reference Range Comments WHITE BLOOD CELL COUNT (BEAKER) (test rxjo=150) 9.7 K/ L 3.5-10.5 RED BLOOD CELL COUNT (BEAKER) (test urab=350) 3.22 M/ L 4.63-6.08 HEMOGLOBIN (BEAKER) (test xkfw=143) 9.1 GM/DL 13.7-17.5 HEMATOCRIT (BEAKER) (test tbpi=391) 29.3 % 40.1-51.0 MEAN CORPUSCULAR VOLUME (BEAKER) (test tcow=354) 91.0 fL 79.0-92.2 MEAN CORPUSCULAR HEMOGLOBIN (BEAKER) (test 28.3 pg 25.7-32.2 rofb=325) MEAN CORPUSCULAR HEMOGLOBIN CONC (BEAKER) (test 31.1 GM/DL 32.3-36.5 zojw=277) RED CELL DISTRIBUTION WIDTH (BEAKER) (test 16.6 % 11.6-14.4 larj=986) PLATELET COUNT (BEAKER) (test qsyf=524) 92 K/CU MM 150-450 MEAN PLATELET VOLUME (BEAKER) (test hmra=986) 11.5 fL 9.4-12.4 NUCLEATED RED BLOOD CELLS (BEAKER) (test 0 /100 WBC 0-0 argu=527) RAD, CHEST, 1 VIEW, NON [id number] 16:24:00Reason for exam:->Post- opShould this be performed at the bedside?->YesFINAL REPORT AP chest HISTORY: Postoperative COMPARISON: None IMPRESSION:Our prosthesis present. Cardiomegaly. Mild interstitial edema. AICD present in right IJ catheter present.No large effusion. No pneumothorax. Signed: Marcos Doran MDReport Verified Date/Time: 09/18/201716:24:56 Reading Location: [facility] Mammo Reading Room [id number] 16:11:00 Test Item Value Reference Range Comments PHOSPHORUS (BEAKER) (test dces=241) 3.3 mg/dL 2.3-4.7 [id number] 16:11:00 Test Item Value Reference Range Comments MAGNESIUM (BEAKER) (test nzzl=103) 1.4 mg/dL 1.6-2.6 BASIC METABOLIC [id number] 16:11:00 Test Item Value Reference Range Comments SODIUM (BEAKER) (test 138 meq/L 136-145 olcz=714) POTASSIUM (BEAKER) (test 4.4 meq/L 3.5-5.1 nyhi=654) CHLORIDE (BEAKER) (test 108 meq/L 98-107 unzo=030) CO2 (BEAKER) (test 23 meq/L 22-29 thux=720) BLOOD UREA NITROGEN 13 mg/dL 7-21 (BEAKER) (test smwh=735) CREATININE (BEAKER) (test 0.81 mg/dL 0.57-1.25 fjuk=903) GLUCOSE RANDOM (BEAKER) 134 mg/dL 70-105 (test tecz=977) CALCIUM (BEAKER) (test 9.2 mg/dL 8.4-10.2 oceo=621) EGFR (BEAKER) (test 93 mL/min/1.73 sq m ESTIMATED GFR IS NOT haia=4055) ACCURATE CREATININE CLEARANCE IN PREDICTING GLOMERULAR FILTRATION RATE. ESTIMATED GFR IS NOT APPLICABLE FOR DIALYSIS PATIENTS. [id number] 16:09:00 Test Item Value Reference Range Comments ACTIVATED CLOTTING TIME 120 sec TESTED AT [facility] [address] (BEAKER) (test mvrc=124) [place] [address] [id number] 16:09:00 Test Item Value Reference Range Comments ACTIVATED CLOTTING TIME 323 sec TESTED AT [place] [id number] (BEAKER) (test iyrg=309) [place] [address] [id number] 16:09:00 Test Item Value Reference Range Comments ACTIVATED CLOTTING TIME 312 sec TESTED AT [place] [address] [address] (BEAKER) (test nfom=049) [place] [address] CBC W/PLT COUNT & AUTO [id number] 16:08:00 Test Item Value Reference Range Comments WHITE BLOOD CELL COUNT (BEAKER) (test tpmt=129) 10.5 K/ L 3.5-10.5 RED BLOOD CELL COUNT (BEAKER) (test sske=926) 3.39 M/ L 4.63-6.08 HEMOGLOBIN (BEAKER) (test lvqa=363) 9.7 GM/DL 13.7-17.5 HEMATOCRIT (BEAKER) (test ibvf=165) 30.7 % 40.1-51.0 MEAN CORPUSCULAR VOLUME (BEAKER) (test qdpm=679) 90.6 fL 79.0-92.2 MEAN CORPUSCULAR HEMOGLOBIN (BEAKER) (test 28.6 pg 25.7-32.2 wzlz=327) MEAN CORPUSCULAR HEMOGLOBIN CONC (BEAKER) (test 31.6 GM/DL 32.3-36.5 xqyi=553) RED CELL DISTRIBUTION WIDTH (BEAKER) (test 16.6 % 11.6-14.4 xbvx=924) PLATELET COUNT (BEAKER) (test mpbt=091) 85 K/CU MM 150-450 MEAN PLATELET VOLUME (BEAKER) (test muak=096) 10.7 fL 9.4-12.4 NUCLEATED RED BLOOD CELLS (BEAKER) (test 0 /100 WBC 0-0 ndvp=547) NEUTROPHILS RELATIVE PERCENT (BEAKER) (test 84 % nwzq=223) LYMPHOCYTES RELATIVE PERCENT (BEAKER) (test 8 % tqlz=179) MONOCYTES RELATIVE PERCENT (BEAKER) (test 5 % eaiv=620) EOSINOPHILS RELATIVE PERCENT (BEAKER) (test 3 % buyi=927) BASOPHILS RELATIVE PERCENT (BEAKER) (test 0 % qpii=450) NEUTROPHILS ABSOLUTE COUNT (BEAKER) (test 8.78 K/ L 1.78-5.38 qcyw=571) LYMPHOCYTES ABSOLUTE COUNT (BEAKER) (test 0.80 K/ L 1.32-3.57 obuu=859) MONOCYTES ABSOLUTE COUNT (BEAKER) (test rtmi=038) 0.51 K/ L 0.30-0.82 EOSINOPHILS ABSOLUTE COUNT (BEAKER) (test 0.27 K/ L 0.04-0.54 hhsr=420) BASOPHILS ABSOLUTE COUNT (BEAKER) (test lbuj=063) 0.03 K/ L 0.01-0.08 IMMATURE GRANULOCYTES-RELATIVE PERCENT (BEAKER) 1 % 0-1 (test utqz=5554) LACTIC ACID, ARTERIAL, WHOLE [id number] 16:07:00 Test Item Value Reference Range Comments LACTATE BLOOD ARTERIAL (2) (BEAKER) (test 1.4 mmol/L 0.5-2.2 sgjd=1376) Effective 10/05/2015: Units/Reference Range ChangeNew: 0.5-2.2 mmol/L Previous: 5 -20 mg/[id number] 16:06:00 Test Item Value Reference Range Comments PARTIAL THROMBOPLASTIN TIME (BEAKER) (test 39.4 seconds 22.5-36.0 wzsz=294) PROTHROMBIN TIME/[id number] 16:05:00 Test Item Value Reference Range Comments PROTIME (BEAKER) (test sdgl=609) 16.7 seconds 11.7-14.7 INR (BEAKER) (test xcqv=402) 1.4 <=5.9 RECOMMENDED COUMADIN/WARFARIN INR THERAPY RANGESSTANDARD DOSE: 2.0 - 3.0 Includes: PROPHYLAXIS forvenous thrombosis, systemic embolization; TREATMENT for venous thrombosis and/or pulmonary embolus.HIGH RISK: Target INR is 2.5-3.5 for patients with mechanical heart valves.SODIUM NA-STAT [id number] 15:46:00 Test Item Value Reference Range Comments SODIUM (BEAKER) (test vfnw=002) 135 meq/L 135-148 POTASSIUM-STAT [id number] 15:46:00 Test Item Value Reference Range Comments POTASSIUM (BEAKER) (test qwof=824) 4.1 meq/L 3.6-5.5 CALCIUM, [id number] 15:46:00 Test Item Value Reference Range Comments CALCIUM IONIZED (BEAKER) (test jgld=009) 1.21 mmol/L 1.12-1.27 PH, BLOOD (BEAKER) (test gzgo=0466) 7.42 BLOOD GAS, [id number] 15:46:00 Test Item Value Reference Range Comments PH ARTERIAL (BEAKER) (test uxvg=040) 7.42 7.35-7.45 PCO2 ARTERIAL (BEAKER) (test wrrt=573) 40 mmHg 35-45 PO2 ARTERIAL (BEAKER) (test gvsd=803) 215 mmHg 80-90 O2 SATURATION ARTERIAL (BEAKER) (test mhfb=299) 99.5 % 96.0-97.0 HCO3 ARTERIAL (BEAKER) (test eyqe=843) 26 mmol/L 21-29 BASE EXCESS ARTERIAL (BEAKER) (test xpfr=522) 1.1 mmol/L -2.0-3.0 PATIENT TEMPERATURE (BEAKER) (test bzih=2423) 37.1 C FIO2 (BEAKER) (test wcsl=3445) 40.0 % GLUCOSE-STAT [id number] 15:46:00 Test Item Value Reference Range Comments GLUCOSE RANDOM (BEAKER) (test ktqj=497) 129 mg/dL 70-110 HGB/HCT (H&H) - STAT [id number] 15:46:00 Test Item Value Reference Range Comments HEMOGLOBIN (BEAKER) (test ynmg=029) 10.6 g/dL 13.0-16.8 HEMATOCRIT (BEAKER) (test dcyg=250) 31.0 % 40.0-50.0 POTASSIUM-STAT [id number] 14:38:00 Test Item Value Reference Range Comments POTASSIUM (BEAKER) (test pntr=288) 3.7 meq/L 3.6-5.5 CALCIUM, [id number] 14:38:00 Test Item Value Reference Range Comments CALCIUM IONIZED (BEAKER) (test sbbt=440) 1.22 mmol/L 1.12-1.27 PH, BLOOD (BEAKER) (test yurv=7179) 7.41 BLOOD GAS, [id number] 14:38:00 Test Item Value Reference Range Comments PH ARTERIAL (BEAKER) (test dqiw=725) 7.42 7.35-7.45 PCO2 ARTERIAL (BEAKER) (test eowz=121) 41 mmHg 35-45 PO2 ARTERIAL (BEAKER) (test rcaz=725) 144 mmHg 80-90 O2 SATURATION ARTERIAL (BEAKER) (test sare=432) 98.9 % 96.0-97.0 HCO3 ARTERIAL (BEAKER) (test rzuv=023) 26 mmol/L 21-29 BASE EXCESS ARTERIAL (BEAKER) (test dwvd=309) 1.2 mmol/L -2.0-3.0 PATIENT TEMPERATURE (BEAKER) (test wwdc=6809) 36.0 C FIO2 (BEAKER) (test iiam=2534) 100.0 % GLUCOSE-STAT [id number] 14:38:00 Test Item Value Reference Range Comments GLUCOSE RANDOM (BEAKER) (test pdyy=580) 127 mg/dL 70-110 SODIUM NA-STAT [id number] 14:38:00 Test Item Value Reference Range Comments SODIUM (BEAKER) (test zuuh=257) 133 meq/L 135-148 HGB/HCT (H&H) - STAT [id number] 14:38:00 Test Item Value Reference Range Comments HEMOGLOBIN (BEAKER) (test pupu=721) 9.4 g/dL 13.0-16.8 HEMATOCRIT (BEAKER) (test gglp=571) 28.0 % 40.0-50.0 CALCIUM, [id number] 12:06:00 Test Item Value Reference Range Comments CALCIUM IONIZED (BEAKER) (test bgfn=295) 1.10 mmol/L 1.12-1.27 PH, BLOOD (BEAKER) (test hgyb=7745) 7.42 BLOOD GAS, [id number] 11:53:00 Test Item Value Reference Range Comments PH ARTERIAL (BEAKER) (test fkpy=702) 7.45 7.35-7.45 PCO2 ARTERIAL (BEAKER) (test eeli=298) 35 mmHg 35-45 PO2 ARTERIAL (BEAKER) (test yiew=839) 474 mmHg 80-90 O2 SATURATION ARTERIAL (BEAKER) (test tuqe=322) 99.9 % 96.0-97.0 HCO3 ARTERIAL (BEAKER) (test vlpz=153) 24 mmol/L 21-29 BASE EXCESS ARTERIAL (BEAKER) (test abhp=531) 0.2 mmol/L -2.0-3.0 PATIENT TEMPERATURE (BEAKER) (test fybj=5930) 35.0 C FIO2 (BEAKER) (test kone=7098) 90.0 % HGB/HCT (H&H) - STAT [id number] 11:53:00 Test Item Value Reference Range Comments HEMOGLOBIN (BEAKER) (test qxsm=984) 16.8 g/dL 13.0-16.8 HEMATOCRIT (BEAKER) (test spvd=519) 49.0 % 40.0-50.0 GLUCOSE-STAT [id number] 11:52:00 Test Item Value Reference Range Comments GLUCOSE RANDOM (BEAKER) (test tzle=309) 107 mg/dL 70-110 SODIUM NA-STAT [id number] 11:52:00 Test Item Value Reference Range Comments SODIUM (BEAKER) (test ftar=641) 135 meq/L 135-148 POTASSIUM-STAT [id number] 11:52:00 Test Item Value Reference Range Comments POTASSIUM (BEAKER) (test ahpy=666) 3.7 meq/L 3.6-5.5 CBC W/PLT COUNT & AUTO [id number] 11:59:00 Test Item Value Reference Range Comments WHITE BLOOD CELL COUNT (BEAKER) (test anxu=000) 6.0 K/ L 3.5-10.5 RED BLOOD CELL COUNT (BEAKER) (test qwhc=085) 3.80 M/ L 4.63-6.08 HEMOGLOBIN (BEAKER) (test uksv=916) 10.9 GM/DL 13.7-17.5 HEMATOCRIT (BEAKER) (test ekgj=268) 34.5 % 40.1-51.0 MEAN CORPUSCULAR VOLUME (BEAKER) (test rymb=499) 90.8 fL 79.0-92.2 MEAN CORPUSCULAR HEMOGLOBIN (BEAKER) (test 28.7 pg 25.7-32.2 vymg=468) MEAN CORPUSCULAR HEMOGLOBIN CONC (BEAKER) (test 31.6 GM/DL 32.3-36.5 uvyz=302) RED CELL DISTRIBUTION WIDTH (BEAKER) (test 16.8 % 11.6-14.4 cgis=912) PLATELET COUNT (BEAKER) (test qhnd=150) 98 K/CU MM 150-450 MEAN PLATELET VOLUME (BEAKER) (test lixx=008) 11.3 fL 9.4-12.4 NUCLEATED RED BLOOD CELLS (BEAKER) (test 0 /100 WBC 0-0 epwg=595) NEUTROPHILS RELATIVE PERCENT (BEAKER) (test 61 % aghl=296) LYMPHOCYTES RELATIVE PERCENT (BEAKER) (test 17 % ujtj=360) MONOCYTES RELATIVE PERCENT (BEAKER) (test 15 % fhea=865) EOSINOPHILS RELATIVE PERCENT (BEAKER) (test 6 % lrkh=153) BASOPHILS RELATIVE PERCENT (BEAKER) (test 1 % help=581) NEUTROPHILS ABSOLUTE COUNT (BEAKER) (test 3.65 K/ L 1.78-5.38 gqoe=317) LYMPHOCYTES ABSOLUTE COUNT (BEAKER) (test 1.01 K/ L 1.32-3.57 lyfh=395) MONOCYTES ABSOLUTE COUNT (BEAKER) (test qfza=354) 0.89 K/ L 0.30-0.82 EOSINOPHILS ABSOLUTE COUNT (BEAKER) (test 0.38 K/ L 0.04-0.54 prot=353) BASOPHILS ABSOLUTE COUNT (BEAKER) (test glmu=458) 0.04 K/ L 0.01-0.08 IMMATURE GRANULOCYTES-RELATIVE PERCENT (BEAKER) 0 % 0-1 (test qvor=5569) B-TYPE NATRIURETIC FACTOR (BNP)2017-09-17 11:33:00 Test Item Value Reference Range Comments B-TYPE NATRIURETIC PEPTIDE (BEAKER) (test 489 pg/mL 0-100 qnav=780) BASIC METABOLIC [id number] 11:25:00 Test Item Value Reference Range Comments SODIUM (BEAKER) (test 138 meq/L 136-145 yefg=797) POTASSIUM (BEAKER) (test 3.9 meq/L 3.5-5.1 lnud=328) CHLORIDE (BEAKER) (test 107 meq/L 98-107 tksm=386) CO2 (BEAKER) (test 24 meq/L 22-29 cgbj=727) BLOOD UREA NITROGEN 16 mg/dL 7-21 (BEAKER) (test ltrv=080) CREATININE (BEAKER) (test 0.87 mg/dL 0.57-1.25 mzky=558) GLUCOSE RANDOM (BEAKER) 127 mg/dL 70-105 (test dokl=235) CALCIUM (BEAKER) (test 9.2 mg/dL 8.4-10.2 hcpg=653) EGFR (BEAKER) (test 85 mL/min/1.73 sq m ESTIMATED GFR IS NOT pnub=9258) ACCURATE CREATININE CLEARANCE IN PREDICTING GLOMERULAR FILTRATION RATE. ESTIMATED GFR IS NOT APPLICABLE FOR DIALYSIS PATIENTS. [id number] 11:25:00 Test Item Value Reference Range Comments ALBUMIN (BEAKER) (test amli=7683) 3.3 g/dL 3.5-5.0 [id number] 11:22:00 Test Item Value Reference Range Comments PROTIME (BEAKER) (test ommy=738) 15.1 seconds 11.7-14.7 INR (BEAKER) (test qqip=637) 1.2 <=5.9 PARTIAL THROMBOPLASTIN TIME (BEAKER) (test 30.4 seconds 22.5-36.0 djtn=897) RECOMMENDED COUMADIN/WARFARIN INR THERAPY RANGESSTANDARD DOSE: 2.0 - 3.0 Includes: PROPHYLAXIS forvenous thrombosis, systemic embolization; TREATMENT for venous thrombosis and/or pulmonary embolus.HIGH RISK: Target INR is 2.5-3.5 for patients with mechanical heart valves.ANG, NEPHROSTOMY, PERC, EXTERNAL [id number] 18:01:00Reason for Exam:->n13.2, n20.0FINAL REPORT Fluoroscopic guided right nephrostomy tube placement, 09/11/2017. Clinical History: Right hydronephrosis, obstructing ureteral stone. Modality: Sonography and fluoroscopy Set Up And Lay Out Inspector: Uriah Johnston MD. Educational Diagnostician: Tom Taylor MD. Sedation: Versed 1.0 mg [...] soft tissue tract was dilated to 8 [place]. A 8.5 [place] drainage catheter was placed into the right [...] right nephrostomy tube placement. Signed: Uriah Johnston [facility] Verified Date/Time: 09/12/2017 18:01:37 Reading Location: [place] [id number] Angio Body Reading Room PT/[id number] 06:17:00 Test Item Value Reference Range Comments PROTIME (BEAKER) (test nqvo=865) 14.8 seconds 11.7-14.7 INR (BEAKER) (test zgrc=656) 1.2 <=5.9 PARTIAL THROMBOPLASTIN TIME (BEAKER) (test 31.4 seconds 22.5-36.0 lmcz=560) RECOMMENDED COUMADIN/WARFARIN INR THERAPY RANGESSTANDARD DOSE: 2.0 - 3.0 Includes: PROPHYLAXIS forvenous thrombosis, systemic embolization; TREATMENT for venous thrombosis and/or pulmonary embolus.HIGH RISK: Target INR is 2.5-3.5 for patients with mechanical heart valves.PLATELET [id number] 06:09:00 Test Item Value Reference Range Comments PLATELET COUNT (BEAKER) (test vtma=065) 111 K/CU MM 150-450 BASIC METABOLIC [id number] 10:17:00 Test Item Value Reference Range Comments SODIUM (BEAKER) (test 138 meq/L 136-145 bjhg=148) POTASSIUM (BEAKER) (test 4.2 meq/L 3.5-5.1 jjue=560) CHLORIDE (BEAKER) (test 105 meq/L 98-107 aprm=722) CO2 (BEAKER) (test 24 meq/L 22-29 ltdk=873) BLOOD UREA NITROGEN 13 mg/dL 7-21 (BEAKER) (test eqwt=410) CREATININE (BEAKER) (test 0.86 mg/dL 0.57-1.25 xswv=421) GLUCOSE RANDOM (BEAKER) 117 mg/dL 70-105 (test gxci=805) CALCIUM (BEAKER) (test 9.3 mg/dL 8.4-10.2 farf=292) EGFR (BEAKER) (test 86 mL/min/1.73 sq m ESTIMATED GFR IS NOT civb=1653) ACCURATE CREATININE CLEARANCE IN PREDICTING GLOMERULAR FILTRATION RATE. ESTIMATED GFR IS NOT APPLICABLE FOR DIALYSIS PATIENTS. CBC W/PLT COUNT & AUTO [id number] 09:49:00 Test Item Value Reference Range Comments WHITE BLOOD CELL COUNT (BEAKER) (test nauu=000) 7.0 K/ L 3.5-10.5 RED BLOOD CELL COUNT (BEAKER) (test rnox=201) 3.93 M/ L 4.63-6.08 HEMOGLOBIN (BEAKER) (test zwzc=697) 11.0 GM/DL 13.7-17.5 HEMATOCRIT (BEAKER) (test yzpr=184) 34.8 % 40.1-51.0 MEAN CORPUSCULAR VOLUME (BEAKER) (test tkpg=554) 88.5 fL 79.0-92.2 MEAN CORPUSCULAR HEMOGLOBIN (BEAKER) (test 28.0 pg 25.7-32.2 ttim=309) MEAN CORPUSCULAR HEMOGLOBIN CONC (BEAKER) (test 31.6 GM/DL 32.3-36.5 bzql=999) RED CELL DISTRIBUTION WIDTH (BEAKER) (test 17.4 % 11.6-14.4 dnsb=948) PLATELET COUNT (BEAKER) (test mhlz=731) 121 K/CU MM 150-450 MEAN PLATELET VOLUME (BEAKER) (test uxoe=301) 10.9 fL 9.4-12.4 NUCLEATED RED BLOOD CELLS (BEAKER) (test 0 /100 WBC 0-0 kjwt=091) NEUTROPHILS RELATIVE PERCENT (BEAKER) (test 64 % guhe=297) LYMPHOCYTES RELATIVE PERCENT (BEAKER) (test 13 % phqp=778) MONOCYTES RELATIVE PERCENT (BEAKER) (test 15 % ykrr=784) EOSINOPHILS RELATIVE PERCENT (BEAKER) (test 6 % ugxq=762) BASOPHILS RELATIVE PERCENT (BEAKER) (test 1 % ehlw=586) NEUTROPHILS ABSOLUTE COUNT (BEAKER) (test 4.51 K/ L 1.78-5.38 flzu=549) LYMPHOCYTES ABSOLUTE COUNT (BEAKER) (test 0.93 K/ L 1.32-3.57 fhks=275) MONOCYTES ABSOLUTE COUNT (BEAKER) (test 1.06 K/ L 0.30-0.82 yroy=521) EOSINOPHILS ABSOLUTE COUNT (BEAKER) (test 0.41 K/ L 0.04-0.54 xzkt=311) BASOPHILS ABSOLUTE COUNT (BEAKER) (test 0.05 K/ L 0.01-0.08 ujxn=092) IMMATURE GRANULOCYTES-RELATIVE PERCENT (BEAKER) 1 % 0-1 (test vkvj=2467) CT, CTA, [id number] 16:05:00Addendum BeginsREPORT STATUS:A Addendum: I reviewed the [...] MDReport Verified Date/Time: 08/02/2017 16:05:09 Reading Location: [place] [address] Angio Body Reading RoomAddendum EndsFINAL REPORT CT [...] 121. The right internal mammary artery is nightm[place]. There is a bypass graft seen to [...] the pelvic arteries are seen to be nightmute, with calcific atherosclerosis identified. See below for [...] mm, respectively. For reference purpose, per [place] [id number], recommendation are as follows: CT area between 273 to 345 mm2 (20 mm valve); 338 to 430 mm2 ( 23 mm valve); 430 to 546 mm2 (26 mm valve); 540 to 683 mm2 (29 mm valve). For reference purpose, per [employer] R brochlarisa, recommendation are as follows: CT perimeter between [...] degrees. The angle of delivery is approximately [place] 2 CAU 5. A vascular graft is seen in the infrarenal abdominal aorta. The minimum and the perpendicular left common iliac artery measures 7.7 and 8.1 mm, respectively with aetr-vu-pzxhmjlz tortuosity and moderate calcific atherosclerosis present. The [...] and 7.6 mm, respectivelywith mild tortuosity and tmvs-tv-facwviie focal calcific atherosclerosis present. NONVASCULAR: Thevisualised thyroid [...] An addendum will be dictated by the Inspection And Testing Supervisor Radiologist regarding the nonvascular findings. Signed: Basilio Treadwell Verified Date/Time: 08/02/2017 15:10:05 Reading Location: [place] [address], CTA [id number] 16:05:00Addendum BeginsREPORT STATUS:A Addendum: I reviewed the [...] of the distal ureter. Signed: London Dupree Verified Date/Time: 08/02/2017 16:05:09 Reading Location: [facility] B1 P048 Angio Body Reading RoomAddendum EndsFINAL REPORT CT [...] 121. The right internal mammary artery is nightm[place]. There is a bypass graft seen to [...] the pelvic arteries are seen to be nightm[place], with calcific atherosclerosis identified. See below for [...] mm, respectively. For reference purpose, per [place] [id number], recommendation are as follows: CT area between [...] degrees. The angle of delivery is approximately [place] 2 CAU 5. A vascular graft is seen in the infrarenal abdominal aorta. The minimum and the perpendicular left common iliac artery measures 7.7 and 8.1 mm, respectively with jerk-dt-jrhkuhmj tortuosity and moderate calcific atherosclerosis present. The [...] and 7.6 mm, respectivelywith mild tortuosity and mzjo-kt-xrmqgbyo focal calcific atherosclerosis present. NONVASCULAR: Thevisualised thyroid [...] An addendum will be dictated by the Inspection And Testing Supervisor Radiologist regarding the nonvascular findings. Signed: Basilio Treadwell Verified Date/Time: 08/02/2017 15:10:05 Reading Location: [place] [address] Cardiology MRI [id number] 12:32:00 Test Item Value Reference Range Comments POC-CREATININE (BEAKER) 0.9 mg/dL 0.6-1.3 TESTED AT [facility] [address] (test wznf=7856) [facility] [address] POC-EGFR (SELENE) (test 82 mL/min/1.73M2 uyab=8369)
--- NOTE | 2018-02-12 08:25 | RAD REPORT ---
EXAM DESCRIPTION: RAD - Chest Single View - 02/12/2018 12:46 am CLINICAL HISTORY: FEVER Chest pain. COMPARISON: Chest Single View dated 04/27/2016 FINDINGS: Portable technique limits examination quality. The lungs are grossly clear. The heart is normal in size. Sternotomy wires noted. IMPRESSION: No acute intrathoracic process suspected.
[2018-02-12] MEDS: FOLIC ACID 1 MG TABLET PO SCH (09:00)
[2018-02-12] MEDS: PIPER/TAZO/NS 3.375gm 3.375 GM/100 ML BAG IVPB SCH ×2 (09:00→18:04)
[2018-02-12] MEDS: METOPROLOL TAR 25 MG TAB PO SCH ×2 (09:00→21:00)
[2018-02-12] MEDS: ASPIRIN EC 81 MG TAB PO SCH (10:44)
[2018-02-12] MEDS: DOCUSATE NA 100 MG CAP PO SCH ×2 (10:44→21:00)
[2018-02-12] MEDS: TAMSULOSIN 0.4 MG SR CAP PO SCH (10:44)
[2018-02-12] MEDS ORDERED: Levofloxacin500mg IV 500 MG/100 ML BAG IV ONE (11:00)
[2018-02-12] MEDS: ACETAMINOPHEN 500 MG TAB PO PRN ×2 (11:34→18:05)
[2018-02-12 11:50] LABS: Magnesium 2.1 mg/dL (1.8-2.4); Phosphorus 2.2 mg/dL (2.5-4.9); Potassium 4.3 mmol/L (3.5-5.1)
--- NOTE | 2018-02-12 12:10 | EKG ---
Test Date: 2018-02-12 Test Time: 00:50:10 [employer]: TL MEASUREMENT RESULTS: Intervals: Rate: 86 LA: 152 QRSD: 86 QT: 368 QTc: 440 [place]: P: 69 LA: 152 QRS: 43 T: 120 INTERPRETIVE STATEMENTS: Normal sinus rhythm ST & T wave abnormality, consider lateral ischemia Abnormal ECG Compared to ECG 04/27/2016 19:29:16 No significant changes Electronically Signed On 02-12-18 12:08:37 CDT by Moshe Flores
[2018-02-12 12:21] LABS: Absolute Lymphocytes (CBC) 0.6 K/uL (0.7-4.9); Absolute Monocytes 1.6 K/uL (0.1-1.3); Absolute Neutrophil 10.5 K/uL (1.8-8.0); Basophils % 0.5 % (0-1.3); Eosinophils % 0.7 % (0-4.4); Hematocrit 29.3 % (39.6-49.0); MCH 29.3 pg (27.0-35.0); MCV 87.3 fL (80-100); MPV 9.1 fL (7.6-11.3); Monocytes % 12.4 % (3.3-12.3); RBC Red Blood Cell Count 3.36 M/uL (4.33-5.43)
[2018-02-12] MEDS: OXYBUTYNIN CHLORIDE 5 MG TAB PO SCH ×2 (14:00→21:00)
[2018-02-12] MEDS ORDERED: TRAMADOL HCL 50 MG TAB PO PRN (17:07)
--- NOTE | 2018-02-12 17:37 | RAD REPORT ---
EXAM DESCRIPTION: CT - Abdomen Pelvis Wo Contrast - 02/12/2018 5:17 pm CLINICAL HISTORY: Abdominal pain. Pain to right buttock COMPARISON: Stone Protocol dated 02/06/2018; Abdomen Pelvis Wo Contrast dated 01/01/2018 TECHNIQUE: CT imaging of the abdomen and pelvis was performed without contrast. Solid organ and vasc ular assessment is limited due to lack of IV contrast. All CT scans are performed using dose optimization technique as appropriate and may include automated exposure control or mA/KV adjustment according to patient size. FINDINGS: Linear opacities are present in both lung bases, likely related to scarring. Nodular liver contour seen compatible with cirrhosis. Mild to moderate splenomegaly is present. The p ancreas and adrenal glands are normal. The right double-J stent is in place with the proximal aspect in the region of the renal pelvis. A 4 mm calculus is seen superior to the proximal aspect of the stent with mild right-sided hydronephrosis . A few additional punctate caliceal stones are present on the right. No stone is seen and along the course of the stent. Distal aspect is in the urinary bladder adjacent to a Covarrubias bulb. A punctate sto ne is present in the urinary bladder adjacent to the Covarrubias bulb. Punctate stone is present in the inf erior calyx left kidney. No bowel obstruction, free air, free fluid or abscess. Atherosclerosis of the abdominal aorta is pres ent with tortuosity present. Mild fat stranding surrounding the abdominal aorta is again noted, appea ring unchanged. No finding indicate appendicitis. The osseous structures are within normal limits. IMPRESSION: Right double-J stent is in place as detailed with mild right hydronephrosis appearing mi ldly improved since the comparative study. Multiple right-sided calculi are again noted. A punctate left renal calculus is seen. Punctate stone in urinary bladder also likely present. Liver cirrhosis. Ectatic and atherosclerotic abdominal aorta with mild surrounding fat stranding, unchanged. A limited non-contrast examination was performed as detailed.
--- NOTE | 2018-02-12 18:39 | CON ---
History Of Present Illness: This is a 77-year-old male. I was consulted for fever and urinary tract infection. The patient just had lithotripsy done for a dollar size stone. The patient also has sig nificant history of enlarged prostate. Had a Covarrubias catheter put in, after which got pulled out at [facility]. The patient developed fevers and hematuria, for which he was brought in for further evaluation. The patient is currently on IV antibiotic. Past Medical History: Degenerative arthritis, nephrolithiasis, hypertension, coronary artery disease , allergic rhinitis, carotid artery surgery, CABG, lithotripsy x2. Family History: Noncontributory. Social History: Tobacco, positive. Alcohol, negative. Medications: Currently using aspirin, Colace, folic acid, Lopressor, morphine, Zofran, Ditropan, Zos yn, Crestor, Flomax. Allergies: NO KNOWN DRUG ALLERGIES. Review of Systems: A 10-point review was performed. Physical Examination: General: This is a 77-year-old male, lying in bed, not in any acute cardiopulmonary distress. Vital signs: Temperature 98.1, T-max of 100.4; pulse 93; respirations 18; blood pressure 129/60. Laboratory Data: Cultures are pending. Chest x-ray done earlier, no acute infiltrate. Assessment And Plan: Urinary tract infection, possible bacteremia and sepsis with fever. Continue a ntibiotic for total of 10 days. Leukocytosis is coming down. Continue supportive care and monitor u rine for further infection. We will follow the patient closely. Thank you Dr. Yoo and Dr. Villagomez for consult. NF/MODL Voice ID: [id number] Report ID: [id number]
[2018-02-12] MEDS: ROSUVASTATIN 10 MG TAB PO SCH (21:54)
[2018-02-13] MEDS: PIPER/TAZO/NS 3.375gm 3.375 GM/100 ML BAG IVPB SCH ×2 (01:08→17:47)
[2018-02-13] MEDS ORDERED: VANCOMYCIN 1.25 GM in NA CHLORIDE 0.9% 250 ML IVPB ONE (01:50)
[2018-02-13] MEDS ORDERED: NA CHLORIDE 0.9% 250 ML ONE (02:29)
[2018-02-13] MEDS ORDERED: VANCOMYCIN 1 GM/VIAL ONE (02:31)
[2018-02-13] MEDS ORDERED: VANCOMYCIN 500 MG/VIAL ONE (02:32)
[2018-02-13] MEDS: ACETAMINOPHEN 500 MG TAB PO PRN ×2 (03:35→21:26)
[2018-02-13 06:38] LABS: Absolute Lymphocytes (CBC) 0.6 K/uL (0.7-4.9); Absolute Monocytes 1.3 K/uL (0.1-1.3); Absolute Neutrophil 7.3 K/uL (1.8-8.0); Basophils % 0.4 % (0-1.3); Eosinophils % 2.1 % (0-4.4); Hematocrit 30.3 % (39.6-49.0); Lymphocytes % 6.5 % (15.3-44.8); MCH 29.6 pg (27.0-35.0); MCV 88.2 fL (80-100); MPV 8.8 fL (7.6-11.3); Monocytes % 13.9 % (3.3-12.3); RBC Red Blood Cell Count 3.43 M/uL (4.33-5.43)
[2018-02-13 07:24] LABS: Albumin 2.2 g/dL (3.4-5.0); Bilirubin Total 0.4 mg/dL (0.2-1.0); Potassium 4.2 mmol/L (3.5-5.1); Protein, Total 6.4 g/dL (6.4-8.2)
[2018-02-13] MEDS: METOPROLOL TAR 25 MG TAB PO SCH (09:00)
[2018-02-13] MEDS: OXYBUTYNIN CHLORIDE 5 MG TAB PO SCH ×3 (09:00→20:27)
[2018-02-13] MEDS: DOCUSATE NA 100 MG CAP PO SCH ×2 (09:59→21:00)
[2018-02-13] MEDS: FOLIC ACID 1 MG TABLET PO SCH (10:00)
[2018-02-13] MEDS: ASPIRIN EC 81 MG TAB PO SCH (10:00)
[2018-02-13] MEDS: TAMSULOSIN 0.4 MG SR CAP PO SCH (10:01)
--- NOTE | 2018-02-13 14:08 | P.PN ---
Subjective Date of Service: 02/13/18 Chief Complaint: Light-headed; fever; UTI; hypotension Patient seen and examined at bedside with RN. Chart reviewed. Case discussed with case management and patient at bedside. Currently patient's blood culture is positive for Gram positive cocci. Urine culture is pending at this time. Abdominal CT yesterday was negative for any acute abnormality. Patient this morning states that he feels much better than before however still complains of having low back pain. Denies having any fever chills nausea vomiting over night Review of Systems 10-point ROS is otherwise unremarkable Physical Examination - Vital Signs Temperature: 98.2 F Blood Pressure: 157/69 Pulse: 77 Respirations: 18 Pulse Ox (%): 99 - Physical Exam General: Alert, In no apparent distress HEENT: Atraumatic, PERRLA, EOMI Neck: Supple, JVD not distended Respiratory: Clear to auscultation bilaterally, Normal air movement Cardiovascular: Regular rate/rhythm, Normal S1 S2 Gastrointestinal: Normal bowel sounds, No tenderness Musculoskeletal: No tenderness Integumentary: No rashes Neurological: Normal speech, Normal tone, Normal affect Lymphatics: No axilla or inguinal lymphadenopathy - Studies Medications List Reviewed: Yes Assessment And Plan - Current Problems (Diagnosis) (1) Sepsis Current Visit: Yes Status: Acute Plan: Sepsis most likely 2.2 to UTI -Urine and blood culture pending. -IV zosyn for now -ABD ct Negative -F.u with Culture -WBC trending down (2) UTI (urinary tract infection) Onset Date: 04/30/16 Current Visit: No Status: Acute Plan: UA with UTI -Urine Culture pending -IV zosyn for now -F.u with Culture Qualifiers: Urinary tract infection type: acute cystitis (3) Status post laser lithotripsy of ureteral calculus Onset Date: 02/13/18 Current Visit: Yes Status: Chronic Plan: S/p Lithotripsy with Stent placement 1 week ago -Outpt F.u with urology once improvement (4) CAD (coronary artery disease) Onset Date: 04/30/16 Current Visit: No Status: Chronic (5) Hyperlipidemia Onset Date: 04/30/16 Current Visit: No Status: Chronic (6) Hypertension Onset Date: 04/30/16 Current Visit: No Status: Chronic - Plan Currently awaiting clinical improvement. He also pending blood cultures at this time. Will follow up with the results shortly. Discharge Plan: Home Plan to discharge in: Unknown - Code Status/Comfort Care Code Status Assessed: Yes Critical Care: No
[2018-02-13] MEDS: ENOXAPARIN 40 MG/0.4 ML SQ SCH (17:48)
[2018-02-13] MEDS: ROSUVASTATIN 10 MG TAB PO SCH (21:24)
[2018-02-14] MEDS: PIPER/TAZO/NS 3.375gm 3.375 GM/100 ML BAG IVPB SCH ×2 (01:33→11:22)
[2018-02-14] MEDS: ACETAMINOPHEN 500 MG TAB PO PRN ×2 (03:53→15:19)
[2018-02-14] MEDS: DOCUSATE NA 100 MG CAP PO SCH ×2 (09:00→20:19)
[2018-02-14] MEDS ORDERED: LISINOPRIL 5 MG TAB PO SCH (09:00)
[2018-02-14] MEDS: FOLIC ACID 1 MG TABLET PO SCH (09:48)
[2018-02-14] MEDS: ASPIRIN EC 81 MG TAB PO SCH (09:48)
[2018-02-14] MEDS: OXYBUTYNIN CHLORIDE 5 MG TAB PO SCH ×3 (09:48→20:19)
[2018-02-14] MEDS: TAMSULOSIN 0.4 MG SR CAP PO SCH (09:48)
--- NOTE | 2018-02-14 13:39 | P.PN ---
Subjective Date of Service: 02/14/18 Chief Complaint: Light-headed; fever; UTI; hypotension Patient seen and examined at bedside with RN. Chart reviewed. Case discussed with case management and patient at bedside. Currently patient's blood culture is positive for ECOLI. Urine culture is pending at this time. Patient this morning states that he feels much better than before. Denies having any fever chills nausea vomiting over night Review of Systems 10-point ROS is otherwise unremarkable Physical Examination - Vital Signs Temperature: 97.4 F Blood Pressure: 144/63 Pulse: 64 Respirations: 18 Pulse Ox (%): 99 - Physical Exam General: Alert, In no apparent distress HEENT: Atraumatic, PERRLA, EOMI Neck: Supple, JVD not distended Respiratory: Clear to auscultation bilaterally, Normal air movement Cardiovascular: Regular rate/rhythm, Normal S1 S2 Gastrointestinal: Normal bowel sounds, No tenderness Musculoskeletal: No tenderness Integumentary: No rashes Neurological: Normal speech, Normal tone, Normal affect Lymphatics: No axilla or inguinal lymphadenopathy - Studies Medications List Reviewed: Yes Assessment And Plan - Current Problems (Diagnosis) (1) Sepsis Current Visit: Yes Status: Acute Plan: Sepsis most likely 2.2 to UTI -Blood culture + for ECOLI -IV meropenum 1g BID for 14 days 06/16 -ABD ct Negative -F.u with Urine Culture -WBC trending down (2) UTI (urinary tract infection) Onset Date: 04/30/16 Current Visit: No Status: Acute Plan: UA with UTI -Urine Culture pending -IV Merrem now 06/16 -F.u with Culture Qualifiers: Urinary tract infection type: acute cystitis (3) Status post laser lithotripsy of ureteral calculus Onset Date: 02/13/18 Current Visit: Yes Status: Chronic Plan: S/p Lithotripsy with Stent placement 1 week ago -Outpt F.u with urology once improvement (4) CAD (coronary artery disease) Onset Date: 04/30/16 Current Visit: No Status: Chronic (5) Hyperlipidemia Onset Date: 04/30/16 Current Visit: No Status: Chronic (6) Hypertension Onset Date: 04/30/16 Current Visit: No Status: Chronic - Plan Pt will require outpatient set up for IV antibiotics. Patient will be needing meropenem 1 g b.i.d. for total 14 days for his bacteremia and urine culture Discharge Plan: Other Plan to discharge in: 72 Hours - Code Status/Comfort Care Code Status Assessed: Yes Critical Care: No
[2018-02-14 14:19] VITALS: O2SAT 97
[2018-02-14] MEDS: ENOXAPARIN 40 MG/0.4 ML SQ SCH (17:03)
[2018-02-14] MEDS ORDERED: Meropenem 1000 MG/VIAL IV SCH (21:00)
[2018-02-14] MEDS: Meropenem 1,000 MG in NA CHLORIDE 0.9% 100 ML IV SCH (21:07)
[2018-02-14] MEDS: ROSUVASTATIN 10 MG TAB PO SCH (21:30)
[2018-02-15] MEDS ORDERED: ENALAPRILAT 1.25 MG/ML VIAL IV ONE (01:20)
[2018-02-15] MEDS ORDERED: DIPHENHYDRAMINE 50 MG/ML VIAL IV PRN (01:21)
[2018-02-15] MEDS: ACETAMINOPHEN 500 MG TAB PO PRN (02:05)
[2018-02-15] MEDS ORDERED: LISINOPRIL 10 MG TAB PO SCH (06:00)
[2018-02-15] MEDS: LISINOPRIL 10 MG TAB PO SCH ×2 (06:00→09:33)
[2018-02-15] MEDS: DOCUSATE NA 100 MG CAP PO SCH (09:00)
[2018-02-15] MEDS: OXYBUTYNIN CHLORIDE 5 MG TAB PO SCH (09:31)
[2018-02-15] MEDS: TAMSULOSIN 0.4 MG SR CAP PO SCH (09:31)
[2018-02-15] MEDS: ASPIRIN EC 81 MG TAB PO SCH (09:31)
[2018-02-15] MEDS: FOLIC ACID 1 MG TABLET PO SCH (09:32)
[2018-02-15] MEDS: Meropenem 1,000 MG in NA CHLORIDE 0.9% 100 ML IV SCH (09:33)
--- NOTE | 2018-02-15 09:41 | RAD REPORT ---
EXAM DESCRIPTION: RAD - Chest Single View - 02/14/2018 11:59 pm CLINICAL HISTORY: Device placement PICC line placement COMPARISON: February 12, 2018 FINDINGS: A PICC line has been inserted with its tip in the mid superior vena cava. The lungs appear clear of acute infiltrate. The heart is normal size. Postsurgical changes involve th e chest IMPRESSION: PICC line with its tip in the superior vena cava
--- NOTE | 2018-02-15 12:53 | PN ---
Subjective: The patient lying in bed. Denies any headache, nausea, vomiting, chest pain, abdominal pain, constipation, or diarrhea. Objective: Vital Signs: Temperature 97, pulse 74, respiration 18, blood pressure 129/64. Lungs: Basal crackles. Heart: S1, S2. Regular. Abdomen: Soft, nontender. Bowel sounds positive. Extremity: No edema. Covarrubias catheter. Laboratory Data: Shows WBC 9.5, hemoglobin 10.2, platelets are 134. Chemistry shows sodium 138, pot assium 4.2, chloride 109, bicarb 23, BUN 19, creatinine 1.1, glucose is 163. Microdata is growing E. coli in his blood and his urine. This is not an ESBL in the blood and not ESBL in urine either. Cu rrently, patient is being treated with meropenem. Assessment And Plan: Escherichia coli, bacteremia, and urinary tract infection. Consider switching patient to Rocephin for 2 weeks once a day. Continue supportive care. We will follow the patient da [place]. LUCA/SANTIAGO Voice ID: [id number] Report ID: [id number]
[2018-02-15 13:01] VITALS: BP 154/63; TEMP 98.2
--- NOTE | 2018-02-16 03:24 | DS ---
Date of Discharge: 02/15/2018 Discharge Diagnoses: 1.Sepsis, resolved. 2.Urosepsis. 3.Urethral stone status post lithotripsy in [facility]. 4.Covarrubias catheter. 5.Coronary artery disease. 6.Hyperlipidemia. 7.Hypertension. Consults: Dr. Seymour from ID. Procedure: CAT scan of the abdomen and pelvis done on February 12 showed right double-J stent in place with mild right hydronephrosis appearing mildly improved since comparative study multiple right -sided calculi again noted. Left renal calculus noted. Liver cirrhosis. Abnormal abdominal aorta w ith surrounding fat stranding unchanged from previous exam. History Of Present Illness: Please refer to Dr. Villagomez's admission note. Hospital Course: Initially, the patient presented with fever post lithotripsy procedure at [facility]. In the ER, he was evaluated and a CAT scan was inconclusive. The patient was febrile an d hypotensive. He was admitted for IV fluid and IV antibiotic. His white blood cells were elevated at 14.7, and they were trending down on IV antibiotics. Culture of the blood in the urine done. Blo od culture was positive for E. coli as well as urine culture was positive for E. coli. The patient w as switched to meropenem. ID consult requested, Dr. Seymour. Advised for the patient to continue IV antibiotic with meropenem for a total of 14 days. The patient does not have any fever or chills over the last 48 hours. The patient will be discharged today home with IV antibiotics, 1 g of meropenem twice a day for total of 14 days. Primary care physician will follow the patient as outpatient. He will also need to follow up with Urology in [place] for his Covarrubias catheter and multi ple kidney stones noted on CT. Discharge Condition: Stable. Discharge Diet: Cardiac. Discharge Followup: With primary care physician in 1 week. Follow up with Urology in a week. Also discussed Covarrubias catheter. Discharge Physical Examination: Vital Signs: Blood pressure is 154/63, respiratory rate 18, pulse 7 6, temperature 98.2. Patient saturating 99% on room air. The patient is alert and oriented x3. [place] s not look in any distress. HEENT: Atraumatic, normocephalic. PERRLA. Oral mucosa is moist. Neck: Supple. No JVD. No carotid bruits. Chest: Clear to auscultation. Good air entry. Heart: Regular rate and rhythm. S1, S2 normal. No gallop or murmur. Abdomen: Soft, obese, nontender. No masses. Positive bowel sounds. Extremities: No clubbing, cyanosis, or edema. A Covarrubias catheter noted. Discharge Activity: As tolerated. Discharge Medications: Meropenem 1 g twice a day for 13 more days, aspirin 81 mg once a day, Zyrtec 5 mg at bedtime, Colace 100 mg twice a day, Flonase nasal spray daily, lactobacillus tablets 1 tablet twice a day, lisinopril 5 mg twice a day, Crestor 10 mg once a day, Flomax 0.4 mg twice a day. GREG/SANTIAGO Voice ID: [id number] Report ID: [id number]
== END 2018-02-15 15:29 | disposition home health service (06) | DRG 872 ==
LOC: ER 23:16 → ERHOLD 02-12 02:25 → 4TH 02-12 07:46 → OBSVTOIN 02-13 14:22
PROVIDERS: ADMIT Hospitalist; ATTEND Hospitalist
PROC: 02HV33Z Insertion of Infusion Device into Superior Vena Cava, Percutaneous Approach (ICD-10-PCS; principal; 2018-02-14)
DX: A41.51 Sepsis due to Escherichia coli [E. coli] (principal); N39.0 Urinary tract infection, site not specified; I25.10 Atherosclerotic heart disease of native coronary artery without angina pectoris; E78.5 Hyperlipidemia, unspecified; I10 Essential (primary) hypertension; K74.60 Unspecified cirrhosis of liver; N21.1 Calculus in urethra
CPT/HCPCS: 36415; 51702; 71045; 74176; 80048; 80053; 80076; 81003; 81015; 82550; 82553; 83605; 83735; 83880; 84100; 84145; 84484; 85025; 85610; 85730; 87040; 87077; 87086; 87088; 87186; 87205; 93005; 96360; 96361; 99284; 99285; G0378; J1650; J2270; J2543; J7030

== ENCOUNTER 2021-08-09 16:15 | Emergency (ER) | payer OTHER ==
--- OUTSIDE RECORDS SUMMARY | 2021-08-09 16:17 | XMS REPORT | Clinical Summary ---
:1940 Author Organization [facility] MD [facility] Address [address] [place] [address] Care Team Providers Name Role Phone Martín Mercado MD Primary Care Provider [phone] Allergies No known active allergies Medications Medication Sig Dispensed Refills Start Date End Date Status nebivolol (BYSTOLIC) Take 2.5 mg by 0 04/30/2016 Active 2.5 MG mouth daily. tabletIndications: hypertension rosuvastatin (CRESTOR) Take 2.5 mg by 0 04/30/2016 Active 5 mg tablet mouth 3 (three) times a week Saturday, Saturday and Saturday. clopidogrel (PLAVIX) Take 75 mg by 0 04/30/2016 Active 75 mg mouth daily. tabletIndications: TIA Reported on 11/08/2016 cetirizine (ZyrTEC) 10 Take 10 mg by 0 10/11/2013 Active mg tablet mouth daily. aspirin 81 mg EC Take 81 mg by 0 Active tablet mouth daily. Reported on 10/16/2016 peg 3350-electrolytes Use as directed by 4000 mL 0 7 Active (GoLYTELY) ordering provider. 236-22.74-6.74 g solutionIndications: Malignant neoplasm of transverse colon, Personal history of colon polyps, Heart disease, Transient cerebral ischemia, not otherwise specified, Essential (primary) hypertension, Cardiac murmur, not otherwise specified Additional Information Patient not taking. Reported on 11/08/2016 peg 3350-electrolytes (GOLYTELY) Use as directed by 4000 mL 0 10/23/2016 Active 236-22.74-6.74 g ordering provider. solutionIndications: Colonoscopy planned Additional Information Patient not taking. Reported on 11/08/2016 Active Problems Problem Noted Date Cardiac murmur 10/12/2016 Occlusion and stenosis of bilateral carotid arteries 0 10/12/2016 Essential (primary) hypertension 10/12/2016 Heart disease 10/12/2016 Personal history of colon polyps 10/12/2016 Malignant neoplasm of transverse colon 10/12/2016 Abdominal aortic aneurysm 10/12/2016 Overview: Juxtarenal abdominal aortic aneurysm 5.[address] 10/10/16 Surgical History Surgery Date Site/Laterality Comments COLONOSCOPY 09-24-2016 CORONARY ARTERY BYPASS 06/03/2000 - GRAFT 06/02/2001 AR COLONOSCOPY FLX DX 10/26/2016 N/A Procedure: DIAGNOSTIC W/COLLJ SPEC WHEN PFRMD FLEXIBLE COLONOSCOPY PROXIMAL TO SPLE FLO FLEXURE; Surgeon: Sunny Lawson MD; Locat ion: MAIN ENDOSCOPY; Serv ice: GASTROENTEROLOGY Medical History Medical History Date Comments Hypertension 04-30-2016 Peripheral arterial occlusive disease 09-11-2000 Personal history of stroke 04-30-2016 Hyperlipidemia 11-22-1980 Heart valve disorder ? Functional visual loss 11-22-1990 Tooth disorder 11-20-1980 Polyp 09-22-2007 Renal stone 08-11-2005 Sexual dysfunction 10-11-1998 Disorder of prostate 11-21-2000 Arthritis 08-11-1980 Alcohol abuse 10-21-1960 Cancer Chronic constipation Social History Tobacco Use Types Packs/Day Years Used Date Former Smoker 1 46 10/07/1955 - 0 09/21/2000 Smokeless Tobacco: Never Used Tobacco Cessation: Ready to Quit: No Alcohol Use Standard Drinks/Week Comments No 0 (1 standard drink = 0.6 oz pure alcoho l) Sex Assigned at Date Recorded Not on file Obstetrics History Last Filed Vital Signs Not on file Plan of Treatment Health Maintenance Due Date Last Done Comments COVID-19 Vaccination (1) 1945 Results Not on fileafter 08/09/2020 Insurance Payer Benefit Plan / Subscriber ID Effective Dates Phone Addre ss Type Group MEDICARE MEDICARE PART [id number] 2005-[place] [phone] [facility] Medicare A AND B t 2 SOLUTIONS [address] [place] [id number] Advance Directives Type Date Recorded Patient 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
--- OUTSIDE RECORDS SUMMARY | 2021-08-09 16:29 | XMS REPORT | Continuity of Care Document ---
:1940 Author Organization [facility] t Address [address] [place] [address] Care Team Providers Name Role Phone LEA CONWAY Primary Care Physician Unavailable Teresa GONZALEZ Attending Clinician Unavailable VELVET JON Attending Clinician Unavailable ELIE SIN Attending Clinician Unavailable Abhay Villaseñor Attending Clinician Unavailable Jarrod Guido Attending Clinician Unavailable LEA CONWAY Attending Clinician Unavailable TAINA Attending Clinician Unavailable TAINA Attending Clinician Unavailable Doctor Unassigned, Name Attending Clinician Unavailable Lea Conway MD Attending Clinician Tim Cespedes MD Attending Clinician GISELEL Attending Clinician Unavailable Giselle PISANO Attending Clinician Lucy Dutta MD Attending Clinician Delgado BRASWELLSW, R Attending Clinician Unavailable TIM CESPEDES Attending Clinician Unavailable Danay Franco MD Attending Clinician LISA Attending Clinician Unavailable Lisa PISANO Attending Clinician Lucía SPRING WINDER Attending Clinician Rizwan CHOUDHURY Attending Clinician Pob, Lab Main Attending Clinician Unavailable Provider, Urgent Care Attending Clinician Unavailable ANENE Attending Clinician Unavailable Gramm SPRING WINDER, A Attending Clinician GRAMM, A Attending Clinician Unavailable 2, Lab Attending Clinician Unavailable Rm, Surg Spec Procedure Attending Clinician Unavailable Teri THOMAS Attending Clinician Unavailable Miguel Sloan DO Attending Clinician Ricardo SMITH, N Attending Clinician Manoj PISANO Attending Clinician Jordon SILVA Attending Clinician Unavailable Vls-Lab Attending Clinician Unavailable ABHINAV Attending Clinician Unavailable Taina CHOUDHURY Attending Clinician Teresa Gonzalez MD Attending Clinician GISELLE Attending Clinician Unavailable RANDY CORDOVA Attending Clinician Unavailable TOMMY SOLIS Attending Clinician Unavailable LUCY DUTTA Attending Clinician Unavailable Teresa GONZALEZ Admitting Clinician Unavailable VELVET JON Admitting Clinician Unavailable ELIE SIN Admitting Clinician Unavailable ZORAIDA Admitting Clinician Unavailable Teresa Gonzalez MD Admitting Clinician GISELLE Admitting Clinician Unavailable PEBBLES Admitting Clinician Unavailable TOMMY SOLIS Admitting Clinician Unavailable LUCY DUTTA Admitting Clinician Unavailable Payers Payer Name Policy Type Policy Number Effective Date Expiration Date S rufina MEDICARE PART A [id number] 2005 \\T\\ B 00:00:00 MEDICARE A B [id number] 2005 00:00:00 MEDICARE PART A [id number] \\T\\ B - MEDICARE Problems Condition Condition Condition Status Onset Resolution Last Treating Co mments Source Name Details Category Date Date Treatment Clinician Date Leg Leg Disease Active [facility] swelling swelling 730 Colleg e 00:00: of 00 Medicin e 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 2-25 ity of mellitus mellitus 00:00: [place] with with 00 Medical transition mgr rn transition mgr rn Br anch y y disorder, disorder, without without long-term long-term current current use of use of insulin insulin Gross Gross Disease Active 2019-06 Univers hematuria hematuria 2-17 ity of 00:00: [place] 00 Medical Branch BPH with BPH with Disease Active 2019-06 Unive rs obstructio obstructio 2-17 it y of n/lower n/lower 00:00: [place] urinary urinary 00 Medical tract tract Branch symptoms symptoms Calculus Calculus Disease Active 2019-06 Unive rs of kidney of kidney 2-17 ity of 00:00: [place] [address] Medical Branch History of History of Disease Active 2019-06 U nivers tobacco tobacco 2-17 ity of use use 00:00: [place] [address] Medical Branch Former Former Disease Active [facility] smoker smoker 18 College 00:00: of 00 Medicin e Arthritis Arthritis Disease Active [place] [facility] 18 College 00:00: of 00 Medicin e BPH BPH Disease Active [facility] (benign (benign 18 College prostatic prostatic 00:00: of hyperplasi hyperplasi 00 Me dicin a) a) e CAD CAD Disease Active [facility] (coronary (coronary 18 [facility] [place] artery artery 00:00: of disease), disease), 00 [facility] aleksandr robinson robinson e coronary coronary artery artery COPD COPD Disease Active [facility] (chronic (chronic 18 Colleg e obstructiv obstructiv 00:00: of e e 00 Medicin pulmonary pulmonary e disease) disease) (HCCode) (HCCode) History of History of Disease Active [facility] TIA TIA 18 College (transient (transient 00:00: of ischemic ischemic 00 Medici n attack) attack) e Hyperchole Hyperchole Disease Active [facility] steremia steremia 18 Colleg e 00:00: of 00 Medicin e Enlarged Enlarged Disease Active [facility] r LA (left LA (left 18 Colleg e atrium) atrium) 00:00: of 00 Medicin e Obesity, Obesity, Disease Active [facility] r Class I, Class I, 18 Colleg e BMI BMI 00:00: of 30-34.9 30-34.9 00 Medicin e S/P CABG x S/P CABG x Disease Active [facility] 3 3 18 College 00:00: of 00 Medicin e Skin Skin Disease Active [facility] cancer cancer 18 College 00:00: of 00 Medicin e Ventricula Ventricula Disease Active [facility] r r 18 [place] tachycardi tachycardi 00:00: of a (HCCode) a (HCCode) 00 Me dicin e CAD CAD Disease Active [facility] (coronary (coronary 418 Melonie ege artery artery 00:00: of disease), disease), 00 Medi aleksandr robinson robinson e coronary coronary artery artery Kidney Kidney Disease Active [facility] stones stones 3-28 College 00:00: of 00 Medicin e Hydronephr Hydronephr Disease Active [facility] osis with osis with 3-28 [place] urinary urinary 00:00: of obstructio obstructio 00 Me dicin n due to n due to e ureteral ureteral calculus calculus Hydronephr Hydronephr Disease Active [facility] osis with osis with 3-28 [place] urinary urinary 00:00: of obstructio obstructio 00 Me dicin n due to n due to e ureteral ureteral calculus calculus PAD PAD Disease Active [facility] (periphera (periphera 3-21 Co llege l artery l artery 00:00: of disease) disease) 00 Medici n (HCCode) (HCCode) e PAD PAD Disease Active [facility] (periphera (periphera 3-21 Co llege l artery l artery 00:00: of disease) disease) 00 Medici n (HCCode) (HCCode) e Transient Transient Disease Active 2016-06 Uni vers ischemic ischemic 2-27 [place]y of attack [place] medication 00 [place] dical Branch Essential Essential Disease Active 2016-06 Uni vers hypertensi hypertensi 07-30 it y of on on 00:00: [place] [address] Medical Branch Infected Infected Disease Active 2016-06 [facility] r aortic aortic 07-30 [place] graft, graft, 00:00: of sequela sequela 00 Medicin e Urinary Urinary Disease Active 2016-06 [facility] tract tract 2 College infection infection 00:00: of without without 00 Medicin hematuria hematuria e Transient Transient Disease Active 2016-06 [place] [facility] ischemic ischemic 18 Colleg e attack on attack on 00:00: of medication medication 00 Me dicin e Occlusion Occlusion Disease Active 2016-06 [facility] and and 218 [place] stenosis stenosis 00:00: of of of 00 Medicin bilateral bilateral e carotid carotid arteries arteries S/P AAA S/P AAA Disease Active 2016-06 [facility] repair repair 07-21 College 00:00: of 00 Medicin e CVA CVA Disease Active 2016-06 [facility] (cerebral (cerebral 2-10 Mel[place]ie e[place] vascular vascular 00:00: of accident) accident) 00 Medi aleksandr (HCCode) (HCCode) e NSTEMI NSTEMI Disease Active 2016-06 [facility] (non-ST (non-ST 0-12 College elevated elevated 00:00: of myocardial myocardial 00 Me dicin infarction infarction e ) (HCCode) ) (HCCode) UTI UTI Disease Active 2016-06 [facility] (urinary (urinary 0-12 Colleg e tract tract 00:00: of infection) infection) 00 Me dicin e AAA Diagnosis Active 2017-03-08 Mem oria 7-14 22:05:00 l AAA 00:00: [place] 00 Active 12/14/2016 [facility] Cardiac Cardiac Disease Recurre MD murmur murmur nce 5-12 Anderso 00:00: n 00 Occlusion Occlusion Disease Recurre MD and and nce 5-12 Anderso stenosis stenosis 00:00: n of of 00 bilateral bilateral carotid carotid arteries arteries Essential Essential Disease Recurre MD (primary) (primary) nce 5-12 [place] rso hypertensi hypertensi 00:00: n on on 00 Heart Heart Disease Recurre MD disease disease nce 5-12 Anderso 00:00: n 00 Personal Personal Disease Recurre history of history of nce 5-12 An derso colon colon 00:00: n polyps polyps 00 Abdominal Abdominal Disease Recurre Overview: aortic aortic nce 10-12 Formattin Anderso aneurysm aneurysm 00:00: g of this n 00 note might be different from the original. Juxtarena l abdominal aortic aneurysm 5.[address] 10/10/16 Malignant Malignant Disease Active neoplasm neoplasm 10-12 Mahesh o of of 00:00: n transverse transverse 00 colon colon Heel pain Heel pain Disease Active [place] [facility] 1-05 College 00:00: of 00 Medicin e Aortic Aortic Disease Active [facility] stenosis, stenosis, Melonie ege severe severe of Medicin e HTN HTN Disease Active [facility] (hypertens (hypertens Co llege ion) ion) of Medicin e Aortic Aortic Disease Active [facility] stenosis, stenosis, Melonie ege severe severe of Medicin e Difficulty Problem Active 2017-05-24 M emoria passing 01:16:01 l urine [place] (finding) Difficulty passing urine (finding) Active Problem 05/24/2017 Medical [facility] Hyperlipid Problem Active 2017-05-24 M emoria emia 01:16:01 l (disorder) Nikolay n Hyperlipid emia (disorder) Active Problem 05/24/2017 [facility] Poor Problem Active 2017-05-24 Memor ia stream of 01:16:01 l urine Poor [place] (finding) stream of urine (finding) Active Problem 05/24/2017 [facility] Retention Problem Active 2017-05-24 Me moria of urine 01:16:01 l (disorder) Nikolay n Retention of urine (disorder) Active Problem 05/24/2017 [facility] Simple Problem Active 2017-05-24 Memor ia obesity 01:16:01 l (disorder) Simple Herm jessica obesity (disorder) Active Problem 05/24/2017 [facility] Urinary Problem Active 2017-05-24 Rafal ivelisse bladder 01:16:01 l stone Urinary [place] (disorder) bladder stone (disorder) Active Problem 05/24/2017 [facility] ABDOMINAL Diagnosis Active 2017-03-08 Memoria AORTIC 22:05:00 l ANEURYSM, [place] WITHOUT ABDOMINAL RUPTU AORTIC ANEURYSM, WITHOUT RUPTU Active [facility] Abdominal Problem 2017-03-06 Me moria aortic 00:01:55 l aneurysm, [place] without Abdominal rupture aortic aneurysm, without rupture 03/06/2017 [facility] Carotid Problem Resolve 2017-05-24 Mem oria artery d 01:16:01 l stenosis Carotid [place] nn (disorder) artery stenosis (disorder) Resolved Problem 05/24/2017 left: [facility] Allergies, Adverse Reactions, Alerts Allergy Allergy Status Severity Reaction(s) Onset Inactive Treating Comm ents Source Name Type Date Date Clinician CIPROFLO DRUG Active Low Diarrhea 2019-06 Univer s XACIN INGREDI ity of 00:00: [place] 00 Medical Branch Ciproflo Drug Active Other - See 2019-06 Headache U nivers xacin Intolera comments and ity of nce 00:00: Muscle [place] pain [facility] Branch Ciproflo Propensi Active Other (See 2019-06 Headache [facility] xacin ty to Comments) and College adverse 00:00: Muscle of reaction 00 painHeada Medic in s to samia and e drug Muscle pain No Known DA Active U 2020-0 [facility]ergie 3-20 [place] [facility] No Known DA Active U 2020-0 [facility] Allergie 3-20 [place] 00:00: [facility] No Known DA Active U 2020-0 [facility] Allergie 2-19 [place] s 00:00: [place] 00 [facility] No Known DA Active U 2020-0 [facility] Allergie 2-19 Clear s 00:00: [place] 00 [facility] Seasonal Propensi Active [facility] ty to 08-27 [place] adverse 00:00: of reaction 00 Medicin s to e drug NO KNOWN Drug Active Univers ALLERGIE Class ity of S [facility] NO KNOWN [facility] Social History Social Habit Start Date Stop Date Quantity Comments Source Exposure to Not sure University of SARS-CoV-2 (event) [facility] Social History 2017-02-26 2017-02-26 Alin Ludivina ibarra 11:53:55 11:53:55 Alcohol intake 2016-11-06 2016-11-06 Current MD Amy ruvalcaba 00:00:00 00:00:00 non-drinker of alcohol (finding) Cigarettes smoked 2016-10-10 2016-10-10 MD [place] lombardo current (pack per 00:00:00 00:00:00 day) - Reported Cigarette 2016-10-10 2016-10-10 MD Barrios pack-years 00:00:00 00:00:00 Tobacco use and 2016-10-10 2016-10-10 Smokeless MD Aragon on exposure 00:00:00 00:00:00 tobacco non-user History of tobacco 1952-10-05 1999-09-06 Smoker [facility] of use 00:00:00 00:00:00 Medicine Sex [birth year] At [birth year] MD Aragon on 00:00:00 00:00:00 Smoking Status Start Date Stop Date Source Former smoker 2014-04-01 00:00:00 2014-04-01 00:00:[address] [facility] Medications Ordered Filled Start Stop Current Ordering Indication Dosage Frequency Signature Comments Components Source Medication Medication Date Date Medication? Clinician (SIG) Name Name ROSUVASTATI 2020-06 Yes [id number] Take 1 Univers N 5 mg 2-03 tablet by ity of tablet 00:00: mouth once [address] Branch ROSUVASTATI 2020-06 Yes [id number] Take 1 Univers N 5 mg 2-03 tablet by ity of tablet 00:00: mouth once [address] Branch rosuvastati 2020-06 Yes 5mg Take 5 mg B aylor n (CRESTOR) 0-27 by mouth [place] e[place] 5 MG tablet 09:18: daily. of 05 Medicin e cetirizine, 2020-06 Yes [id number] 10mg Take 10 mg [facility] ZYRTEC, 10 0-27 by mouth. Melonie ege MG tablet 09:18: of 05 Medicin e clopidogrel 2020-06 Yes [id number] 75mg Take 75 mg [facility] (PLAVIX) 75 0-27 by mouth. Col lege MG tablet 09:18: of 05 Medicin e Oxymetazoli 2020-06 Yes by Nasal Ba [facility]lor ne HCl 0-27 route. [facility] (AFRIN 12 09:18: uses of HOUR NA) 05 medication Medic in every day e CLOPIDOGREL 2020-06 Yes Take 1 Univ ers 75 mg 0-11 tablet by ity of tablet 00:00: mouth once [address] clopidogreL 2020-06 Yes 75mg Take 1 Univ ers 75 mg 0-11 tablet by ity of tablet 00:00: mouth [place] 00 daily. Medical Branch clopidogreL 2020-06 Yes 75mg Take 1 Univ ers 75 mg 0-11 tablet by ity of tablet 00:00: mouth [place] 00 daily. Medical Branch clopidogreL 2020-06 Yes 75mg Take 1 Univ ers 75 mg 0-11 tablet by ity of tablet 00:00: mouth [place] 00 daily. Medical Branch clopidogreL 2020-06 Yes 75mg Take 1 Univ ers 75 mg 0-11 tablet by ity of tablet 00:00: mouth [place] 00 daily. Medical Branch rosuvastati Yes 5mg Take 5 mg B [facility] n (CRESTOR) 9-08 by mouth Mel[place]ie ege 5 MG tablet 11:12: daily. of 58 Medicin e cetirizine, 0 Yes [id number] 10mg Take 10 mg [facility] ZYRTEC, 10 9-08 by mouth. Melonie ege MG tablet 11:12: of 58 Medicin e clopidogrel Yes [id number] 75mg Take 75 mg Thierry (PLAVIX) 75 9-08 by mouth. Col lege MG tablet 11:12: of 58 Medicin e Oxymetazoli 0 Yes by Nasal Ba ylor ne HCl 9-08 route. [facility] (AFRIN 12 11:12: uses of HOUR NA) 58 medication Medic in every day e rosuvastati Yes 5mg Take 5 mg B ayl[facility] n (CRESTOR) 9-08 by mouth Melonie ege 5 MG tablet 11:12: daily. of 58 Medicin e cetirizine, 0 Yes [id number] 10mg Take 10 mg [facility]ierry ZYRTEC, 10 9-08 by mouth. Melonie ege MG tablet 11:12: of 58 Medicin e clopidogrel 0 Yes [id number] 75mg Take 75 mg [facility] (PLAVIX) 75 9-08 by mouth. Col lege MG tablet 11:12: of 58 Medicin e Oxymetazoli 0 Yes by Nasal Ba ylor ne HCl 9-08 route. [facility] (AFRIN 12 11:12: uses of HOUR NA) 58 medication Medic in every day e CLOPIDOGREL 0 Yes Take 1 Univ ers 75 mg 8-27 tablet by ity of tablet 00:00: mouth once [place] 00 daily Medical Branch CLOPIDOGREL 2020-0 Yes Take 1 Univ ers 75 mg 8-27 tablet by ity of tablet 00:00: mouth once [place] 00 daily Medical Branch CLOPIDOGREL 2020-0 2021- No Take 1 Uni vers 75 mg 8-27 10-11 tablet by ity of tablet 00:00: 00:00 [place] 00 :[place] daily Medical Branch rosuvastati 2020-0 Yes [id number] 5mg Take 1 Univers n 5 mg 8-16 tablet by ity of tablet 00:00: mouth [place] 00 daily. Medical Branch rosuvastati 2020-0 Yes [id number] 5mg Take 1 Univers n 5 mg 8-16 tablet by ity of tablet 00:00: mouth [place] 00 daily. Medical Branch rosuvastati 2020-0 Yes [id number] 5mg Take 1 Univers n 5 mg 8-16 tablet by ity of tablet 00:00: mouth [place] 00 daily. Medical Branch rosuvastati 2020-0 Yes [id number] 5mg Take 1 Univers n 5 mg 8-16 tablet by ity of tablet 00:00: mouth [place] 00 daily. Medical Branch rosuvastati 2020-0 Yes [id number] 5mg Take 1 Univers n 5 mg 8-16 tablet by ity of tablet 00:00: mouth [place] 00 daily. Medical Branch rosuvastati 202-0 2021- No [id number] 5mg Take 1 Univers n 5 mg 8-16 12-03 tablet by ity of tablet 00:00: 00:00 mouth [place] 00 :00 daily. Medical Branch CLOPIDOGREL 2020-0 Yes Take 1 Univ ers 75 mg 8-06 tablet by ity of tablet 00:00: mouth once [place] 00 daily Medical Branch CLOPIDOGREL 2020-0 Yes Take 1 Univ ers 75 mg 8-06 tablet by ity of tablet 00:00: mouth once [place] 00 daily Medical Branch CLOPIDOGREL 2021-0 2021- No Take 1 Uni vers 75 mg 8-06 08-27 tablet by ity of tablet 00:00: 00:00 [place] 00 :[place] daily Medical Branch CLOPIDOGREL 2021-0 2021- No Take 1 Uni vers 75 mg 8-06 08-27 tablet by ity of tablet 00:00: 00:00 [place] 00 :00 daily Medical Branch rosuvastati Yes 5mg Take 5 mg B ayl[facility] n (CRESTOR) 12-26 by mouth Mel[place] e[place] 5 MG tablet 14:18: daily. of Medicin e cetirizine, Yes [id number] 10mg Take 10 mg [facility] ZYRTEC, 10 12-26 by mouth. Melonie ege MG tablet 14:18: of Medicin e clopidogrel Yes [id number] 75mg Take 75 mg [facility] (PLAVIX) 75 12-26 by mouth. Col lege MG tablet 14:18: of Medicin e Oxymetazoli Yes by Nasal Ba ylor ne HCl 12-26 route. [place] (AFRIN 12 14:18: uses of HOUR NA) medication Medic in every day e Probiotic 2020- No [id number] Take by [facility] Product 12-26 mouth. [place] (PROBIOTIC 14:18: 00:00 of ADVANCED 05 :00 Medicin OR) e ASPIRIN 81 2020- No Take by Ba ylor OR 12-26 mouth [place] 14:17: 00:00 daily. of 59 :00 Medicin e CLOPIDOGREL Yes Take 1 Univ ers 75 mg 6-17 tablet by ity of tablet 00:00: mouth once daily Medical Branch CLOPIDOGREL Yes Take 1 Univ ers 75 mg 6-17 tablet by ity of tablet 00:00: mouth once daily Medical Branch CLOPIDOGREL 2020- No Take 1 Uni vers 75 mg 6-17 08-06 tablet by ity of tablet 00:00: 00:00 mouth [place] :[place] daily Medical Branch ROSUVASTATI Yes [id number] Take 1 Univers N 5 mg 6-01 tablet by ity of tablet 00:00: mouth once daily Medical Branch ROSUVASTATI Yes [id number] Take 1 Univers N 5 mg 6-01 tablet by ity of tablet 00:00: mouth once daily Medical Branch ROSUVASTATI Yes [id number] Take 1 Univers N 5 mg 6-01 tablet by ity of tablet 00:00: mouth once daily Medical Branch ROSUVASTATI Yes [id number] Take 1 Univers N 5 mg 6-01 tablet by ity of tablet 00:00: mouth once [place] 00 daily [facility] ASPIRIN Yes 81mg Take 81 mg Univ ers ORAL 5-25 by mouth. ity of 21:03: [address] ASPIRIN Yes 81mg Take 81 mg Univ ers ORAL 5-25 by mouth. ity of 21:03: [address] ASPIRIN Yes 81mg Take 81 mg Univ ers ORAL 5-25 by mouth. ity of 21:03: [address] ASPIRIN Yes 81mg Take 81 mg Univ ers ORAL 5-25 by mouth. ity of 21:03: [address] ASPIRIN Yes 81mg Take 81 mg Univ ers ORAL 5-25 by mouth. ity of 21:03: [address] ASPIRIN Yes 81mg Take 81 mg Univ ers ORAL 5-25 by mouth. ity of 21:03: [address] ASPIRIN Yes 81mg Take 81 mg Univ ers ORAL 5-25 by mouth. ity of 21:03: [address] ASPIRIN Yes 81mg Take 81 mg Univ ers ORAL 5-25 by mouth. ity of 21:03: [address] liraglutide 2020-2020- No inject Uni vers (VICTOZA 5-25 05-25 under the ity o f 2-HOMERO) 0.6 21:03: 00:00 skin. [place] mg/0.1 mL 17 :00 Medical (18 mg/3 Branch mL) injection ASPIRIN Yes 81mg Take 81 mg Univ ers ORAL 5-25 by mouth. ity of 16:03: [address] ASPIRIN Yes 81mg Take 81 mg Univ ers ORAL 5-25 by mouth. ity of 16:03: [address] ASPIRIN Yes 81mg Take 81 mg Univ ers ORAL 5-25 by mouth. ity of 16:03: [address] ASPIRIN 2020-0 Yes 81mg Take 81 mg Univ ers ORAL 5-25 by mouth. ity of 16:03: [address] ASPIRIN 2020- Yes 81mg Take 81 mg Univ ers ORAL 5-25 by mouth. ity of 16:03: [place] 46 Medical Branch rosuvastati Yes 5mg Take 5 mg B ayl[facility] n (CRESTOR) 5-25 by mouth Melonie ege 5 MG tablet 13:00: daily. of 40 Medicin e Probiotic 0 Yes [id number] Take by [facility] Product 5-25 mouth. [place] (PROBIOTIC 13:00: of ADVANCED 40 Medicin OR) e cetirizine, 0 Yes [id number] 10mg Take 10 mg [facility] ZYRTEC, 10 5-25 by mouth. Melonie ege MG tablet 13:00: of 40 Medicin e clopidogrel 0 Yes [id number] 75mg Take 75 mg [facility] (PLAVIX) 75 5-25 by mouth. Col lege MG tablet 13:00: of 40 Medicin e Oxymetazoli 0 Yes by Nasal Ba ylor ne HCl 5-25 route. [place] (AFRIN 12 13:00: uses of HOUR NA) 40 medication Medic in every day e ASPIRIN 81 0 Yes Take by [place] [facility] OR 5-25 mouth [place] 13:00: daily. of 40 Medicin e rosuvastati Yes 5mg Take 5 mg [facility] n (CRESTOR) 5-25 by mouth Melonie ege 5 MG tablet 13:00: daily. of 40 Medicin e Probiotic 0 Yes [id number] Take by [facility] Product 5-25 mouth. [place] (PROBIOTIC 13:00: of ADVANCED 40 Medicin OR) e cetirizine, 0 Yes [id number] 10mg Take 10 mg [facility] ZYRTEC, 10 5-25 by mouth. Melonie ege MG tablet 13:00: of 40 Medicin e clopidogrel 0 Yes [id number] 75mg Take 75 mg [facility] (PLAVIX) 75 5-25 by mouth. Col lege MG tablet 13:00: of 40 Medicin e Oxymetazoli 2020-0 Yes by Nasal Ba [facility]lor ne HCl 5-25 route. [place] (AFRIN 12 13:00: uses of HOUR NA) 40 medication Medic in every day e rOPINIRole 2020-0 Yes [id number] 1mg Take 1 U nivers 1 mg tablet 5-25 tablet by ity of 00:00: mouth at [place] 00 bedtime. Medical Branch rOPINIRole 2020-0 Yes [id number] 1mg Take 1 U nivers 1 mg tablet 5-25 tablet by ity of 00:00: mouth at [place] [address] bedtime. Medical Branch rOPINIRole 2020-0 Yes [id number] 1mg Take 1 U nivers 1 mg tablet 5-25 tablet by ity of 00:00: mouth at [place] [address] bedtime. Medical Branch rOPINIRole 2020-0 Yes [id number] 1mg Take 1 U nivers 1 mg tablet 5-25 tablet by ity of 00:00: mouth at [place] [address] bedtime. Medical Branch rOPINIRole 2020-0 Yes [id number] 1mg Take 1 U nivers 1 mg tablet 5-25 tablet by ity of 00:00: mouth at [place] [address] bedtime. Medical Branch rOPINIRole 2020-0 Yes [id number] 1mg Take 1 U nivers 1 mg tablet 5-25 tablet by ity of 00:00: mouth at [place] [address] bedtime. Medical Branch rOPINIRole 2020-0 Yes [id number] 1mg Take 1 U nivers 1 mg tablet 5-25 tablet by ity of 00:00: mouth at [place] [address] bedtime. Medical Branch rOPINIRole 2020-0 Yes [id number] 1mg Take 1 U nivers 1 mg tablet 5-25 tablet by ity of 00:00: mouth at [place] [address] bedtime. Medical Branch rOPINIRole 2020-0 Yes [id number] 1mg Take 1 U nivers 1 mg tablet 5-25 tablet by ity of 00:00: mouth at [place] [address] bedtime. Medical Branch rOPINIRole 2020-0 Yes [id number] 1mg Take 1 U nivers 1 mg tablet 5-25 tablet by ity of 00:00: mouth at [place] [address] bedtime. Medical Branch rOPINIRole 2020-0 Yes [id number] 1mg Take 1 U nivers 1 mg tablet 5-25 tablet by ity of 00:00: mouth at [place] [address] bedtime. Medical Branch rOPINIRole 2020-0 Yes [id number] 1mg Take 1 U nivers 1 mg tablet 5-25 tablet by ity of 00:00: mouth at [place] [address] bedtime. Medical Branch aspirin EC 2020-0 202- No [id number] 81mg Take 81 mg [facility] 81 MG TBEC 5-05 05-05 by mouth Melonie ege 14:41: 00:00 daily. of 08 :00 Medicin e Tamsulosin 2021-0 Yes [id number] .4mg Take 0.4 [facility]ry HCl 0.4 MG 5-05 mg by College CAPS 00:00: mouth of 00 daily. Medicin e Tamsulosin 2020-0 Yes [id number] .4mg Take 0.4 [facility] HCl 0.4 MG 5-05 mg by College CAPS 00:00: mouth of 00 daily. Medicin e Tamsulosin 2020-0 Yes [id number] .4mg Take 0.4 [facility] HCl 0.4 MG 5-05 mg by College CAPS 00:00: mouth of 00 daily. Medicin e Tamsulosin Yes [id number] .4mg Take 0.4 [facility] HCl 0.4 MG 5-05 mg [facility] CAPS 00:00: mouth of 00 daily. Medicin e Tamsulosin 0 Yes [id number] .4mg Take 0.4 [facility] HCl 0.4 MG 5-05 mg by [facility] CAPS 00:00: mouth of 00 daily. Medicin e Tamsulosin Yes [id number] .4mg Take 0.4 [facility] HCl 0.4 MG 5-05 mg by [facility] CAPS 00:00: mouth of 00 daily. Medicin e ROSUVASTATI Yes [id number] Take 1 [facility] N 5 mg 4-29 tablet by ity of tablet 00:00: mouth once daily Medical Branch ROSUVASTATI 0 Yes [id number] Take 1 [facility] N 5 mg 4-29 tablet by ity of tablet 00:00: mouth once daily Medical Branch ROSUVASTATI 0 2020- No [id number] Take 1 [facility] N 5 mg 4-29 11-01 tablet by [facility] tablet 00:00: [place] daily [place] [facility] rosuvastati Yes 5mg Take 5 mg [facility] n (CRESTOR) 4-20 by mouth Melonie ege 5 MG tablet 18:48: daily. of 13 Medicin e Probiotic Yes [id number] Take by [facility] Product 4-20 mouth. [place] (PROBIOTIC 18:48: of ADVANCED 13 Medicin OR) e aspirin EC Yes [id number] 81mg Take 81 mg Thierry 81 MG TBEC 4-20 by mouth Colle ge 18:48: daily. of 13 Medicin e cetirizine, Yes [id number] 10mg Take 10 mg [facility]ierry ZYRTEC, 10 4-20 by mouth. Melonie ege MG tablet 18:48: of 13 Medicin e clopidogrel Yes [id number] 75mg Take 75 mg [facility] (PLAVIX) 75 4-20 by mouth. Col lege MG tablet 18:48: of 13 Medicin e Oxymetazoli Yes by Nasal Ba [facility] ne HCl 4-20 route. [facility] (AFRIN 12 18:48: uses of HOUR NA) 13 medication Medic in every day e ROSUVASTATI Yes [id number] Take 1 [facility] N 5 mg 4-01 tablet by ity of tablet 00:00: mouth once daily Medical Branch ROSUVASTATI 0 Yes [id number] Take 1 [facility] N 5 mg 4-01 tablet by ity of tablet 00:00: mouth once daily Medical Branch ROSUVASTATI 0 Yes [id number] Take 1 [facility] N 5 mg 4-01 tablet by ity of tablet 00:00: mouth once daily Medical Branch ROSUVASTATI Yes [id number] Take 1 [facility] N 5 mg 4-01 tablet by ity of tablet 00:00: mouth once daily Medical Branch ROSUVASTATI 2020-0 2020- No [id number] Take 1 [facility] N 5 mg 4-01 04-29 tablet by [facility] of tablet 00:00: 00[place] :[place] daily [facility] Branch furosemide 2020-0 1- No 40mg 40 mg, IV U nivers (LASIX) 3-27 03-27 Push, ity of injection 20:15: 19:41 ONCE, 1 [place] 40 mg 00 :00 dose, Sat Medical 08/27/20 at Branch 1515, ANA furosemide 2020-0 Yes [id number] 20mg Take 1 [facility] 20 mg 3-27 tablet by ity of tablet 00:00: mouth [place] 00 every Medical morning. Branch furosemide 2020-0 Yes [id number] 20mg Take 1 [facility] 20 mg 3-27 tablet by ity of tablet 00:00: mouth [place] 00 every Medical morning. Branch furosemide 0 Yes [id number] 20mg Take 1 [facility] 20 mg 3-27 tablet by ity of tablet 00:00: mouth [place] 00 every Medical morning. Branch furosemide 0 Yes [id number] 20mg Take 1 [facility] 20 mg 3-27 tablet by ity of tablet 00:00: mouth [place] 00 every Medical morning. Branch furosemide 0 Yes [id number] 20mg Take 1 [facility] 20 mg 3-27 tablet by ity of tablet 00:00: mouth [place] 00 every Medical morning. Branch furosemide 0 Yes [id number] 20mg Take 1 [facility] 20 mg 3-27 tablet by ity of tablet 00:00: mouth [place] 00 every Medical morning. Branch furosemide 2020-2020- No [id number] 20mg Take 1 [facility] 20 mg 3-27 05-25 tablet by ity of tablet 00:00: 00:00 mouth [place] 00 :00 every Medical morning. Branch docusate 2020-2020- No 250mg Take 250 Uni vers sodium 250 3-26 03-26 mg by ity of mg capsule 19:43: 00:00 mouth [place] 13 :00 daily. Medical Branch docusate 2020- No 250mg Take 250 Uni vers sodium 250 3-26 03-26 mg by ity of mg capsule 19:43: 00:00 mouth [place] 13 :00 daily. Medical Branch CLOPIDOGREL Yes Take 1 Univ ers 75 mg 2-24 tablet by ity of tablet 00:00: mouth once [place] 00 daily Medical Branch ROSUVASTATI 2020-0 Yes [id number] Take 1 [facility] N 5 mg 2-24 tablet by ity of tablet 00:00: mouth once [place] 00 daily Medical Branch CLOPIDOGREL 2020-0 Yes Take 1 Univ ers 75 mg 2-24 tablet by ity of tablet 00:00: mouth once [place] 00 daily Medical Branch ROSUVASTATI 2020-0 Yes [id number] Take 1 [facility] N 5 mg 2-24 tablet by ity of tablet 00:00: mouth once [place] 00 daily Medical Branch CLOPIDOGREL 2020-0 Yes Take 1 Univ ers 75 mg 2-24 tablet by ity of tablet 00:00: mouth once [place] 00 daily Medical Branch ROSUVASTATI 2020-0 Yes [id number] Take 1 [facility] N 5 mg 2-24 tablet by ity of tablet 00:00: mouth once Medical Branch CLOPIDOGREL 2021-0 Yes Take 1 Univ ers 75 mg 2-24 tablet by ity of tablet 00:00: mouth once Medical Branch ROSUVASTATI 2021-0 Yes [id number] Take 1 [facility] N 5 mg 2-24 tablet by ity of tablet 00:00: mouth once daily Medical Branch CLOPIDOGREL 2021-0 Yes Take 1 Univ ers 75 mg 2-24 tablet by ity of tablet 00:00: mouth once daily Medical Branch ROSUVASTATI 2021-0 Yes [id number] Take 1 [facility] N 5 mg 2-24 tablet by ity of tablet 00:00: mouth once daily Medical Branch CLOPIDOGREL 2021-0 Yes Take 1 Univ ers 75 mg 2-24 tablet by ity of tablet 00:00: mouth once Medical Branch ROSUVASTATI 2021-0 Yes [id number] Take 1 [facility] N 5 mg 2-24 tablet by ity of tablet 00:00: mouth once daily Medical Branch CLOPIDOGREL 2021-0 Yes Take 1 Univ ers 75 mg 2-24 tablet by ity of tablet 00:00: mouth once Medical Branch ROSUVASTATI 2021-0 Yes [id number] Take 1 [facility] N 5 mg 2-24 tablet by ity of tablet 00:00: mouth once Medical Branch CLOPIDOGREL 2021-0 Yes Take 1 Univ ers 75 mg 2-24 tablet by ity of tablet 00:00: mouth once daily Medical Branch ROSUVASTATI 2021-0 Yes [id number] Take 1 [facility] N 5 mg 2-24 tablet by ity of tablet 00:00: mouth once daily Medical Branch CLOPIDOGREL 2021-0 Yes Take 1 Univ ers 75 mg 2-24 tablet by ity of tablet 00:00: mouth once daily Medical Branch ROSUVASTATI 2021-0 Yes [id number] Take 1 [facility] N 5 mg 2-24 tablet by ity of tablet 00:00: mouth once daily Medical Branch CLOPIDOGREL 2021-0 Yes Take 1 Univ ers 75 mg 2-24 tablet by ity of tablet 00:00: mouth once daily Medical Branch CLOPIDOGREL 2021-0 Yes Take 1 Univ ers 75 mg 2-24 tablet by ity of tablet 00:00: mouth once [place] 00 daily Medical Branch CLOPIDOGREL 2021-0 Yes Take 1 Univ ers 75 mg 2-24 tablet by ity of tablet 00:00: mouth once Medical Branch CLOPIDOGREL 2021-0 Yes Take 1 Univ ers 75 mg 2-24 tablet by ity of tablet 00:00: mouth once Medical Branch CLOPIDOGREL 2021-0 Yes Take 1 Univ ers 75 mg 2-24 tablet by ity of tablet 00:00: mouth once Medical Branch CLOPIDOGREL 2021-0 Yes Take 1 Univ ers 75 mg 2-24 tablet by ity of tablet 00:00: mouth once Medical Branch CLOPIDOGREL 2021-0 Yes Take 1 [facility] ers 75 mg 2-24 tablet by ity of tablet 00:00: mouth once Medical Branch CLOPIDOGREL 2021-0 Yes Take 1 [facility] ers 75 mg 2-24 tablet by ity of tablet 00:00: mouth once Medical Branch ROSUVASTATI 2021-0 Yes [id number] Take 1 [facility] N 5 mg 2-24 tablet by ity of tablet 00:00: mouth once Medical Branch CLOPIDOGREL 2021-0 Yes Take 1 Univ ers 75 mg 2-24 tablet by ity of tablet 00:00: mouth once Medical Branch ROSUVASTATI 2021-0 Yes [id number] Take 1 [facility] N 5 mg 2-24 tablet by ity of tablet 00:00: mouth once Medical Branch CLOPIDOGREL 2021-0 Yes Take 1 Univ ers 75 mg 2-24 tablet by ity of tablet 00:00: mouth once Medical Branch ROSUVASTATI 2021-0 Yes [id number] Take 1 [facility] N 5 mg 2-24 tablet by ity of tablet 00:00: mouth once Medical Branch CLOPIDOGREL 2021-0 Yes Take 1 Univ ers 75 mg 2-24 tablet by ity of tablet 00:00: mouth once Medical Branch ROSUVASTATI 2021-0 Yes [id number] Take 1 [facility] N 5 mg 2-24 tablet by ity of tablet 00:00: mouth once daily Medical Branch CLOPIDOGREL 2021-0 Yes Take 1 Univ ers 75 mg 2-24 tablet by ity of tablet 00:00: mouth once daily Medical Branch ROSUVASTATI 2021-0 Yes [id number] Take 1 [facility] N 5 mg 2-24 tablet by ity of tablet 00:00: mouth once [place] 00 daily Medical Branch CLOPIDOGREL 2020-0 1- No Take 1 Uni vers 75 mg 2-24 06-17 tablet by ity of tablet 00:00: 00:00 mouth [place] 00 :00 daily Medical Branch ROSUVASTATI 2020-0 1- No [id number] Take 1 [facility] N 5 mg 2-24 04-01 tablet by ity of tablet 00:00: 00:00 mouth [place] 00 :00 daily Medical Branch levoFLOXaci 2020-0 Yes [id number] 250mg Take 1 [facility] n 1-21 tablet by ity of (LEVAQUIN) 00:00: mouth [place] 250 mg 00 every 24 Medical tablet (twenty- Branch ur) hours. levoFLOXaci 2020-0 Yes [id number] 250mg Take 1 [facility] n 1-21 tablet by ity of (LEVAQUIN) 00:00: mouth [place] 250 mg 00 every 24 Medical tablet ([facility]- Branch ur) hours. levoFLOXaci 2020-0 Yes [id number] 250mg Take 1 [facility] n 1-21 tablet by ity of (LEVAQUIN) 00:00: mouth [place] 250 mg 00 every 24 Medical tablet (twenty- Branch ur) hours. levoFLOXaci 2020-0 Yes [id number] 250mg Take 1 [facility] n 1-21 tablet by ity of (LEVAQUIN) 00:00: mouth [place] 250 mg 00 every 24 Medical tablet ([facility]- Branch ur) hours. levoFLOXaci 2020-0 Yes [id number] 250mg Take 1 [facility] n 1-21 tablet by ity of (LEVAQUIN) 00:00: mouth [place] 250 mg 00 every 24 Medical tablet (twenty- Branch ur) hours. levoFLOXaci 2020-0 Yes [id number] 250mg Take 1 [facility] n 1-21 tablet by ity of (LEVAQUIN) 00:00: mouth [place] 250 mg 00 every 24 Medical tablet (twenty- Branch ur) hours. levoFLOXaci 2020-0 Yes [id number] 250mg Take 1 [facility] n 1-21 tablet by ity of (LEVAQUIN) 00:00: mouth [place] 250 mg 00 every 24 Medical tablet ([facility]- Branch ur) hours. levoFLOXaci 2020-0 Yes [id number] 250mg Take 1 [facility] n 1-21 tablet by ity of (LEVAQUIN) 00:00: mouth [place] 250 mg 00 every 24 Medical tablet (twenty- Branch ur) hours. levoFLOXaci 2021-0 Yes [id number] 250mg Take 1 [facility] n 1-21 tablet by ity of (LEVAQUIN) 00:00: mouth [place] 250 mg 00 every 24 Medical tablet ([facility]- Branch ur) hours. levoFLOXaci 2021-0 Yes [id number] 250mg Take 1 [facility] n 1-21 tablet by ity of (LEVAQUIN) 00:00: mouth [place] 250 mg 00 every 24 Medical tablet (twenty- Branch ur) hours. levoFLOXaci 2021-0 Yes [id number] 250mg Take 1 [facility] n 1-21 tablet by ity of (LEVAQUIN) 00:00: mouth [place] 250 mg 00 every 24 Medical tablet ([facility]- Branch ur) hours. levoFLOXaci 2021-0 Yes [id number] 250mg Take 1 [facility] n 1-21 tablet by ity of (LEVAQUIN) 00:00: mouth [place] 250 mg 00 every 24 Medical tablet ([facility]- Branch ur) hours. levoFLOXaci 2021-0 Yes [id number] 250mg Take 1 [facility] n 1-21 tablet by ity of (LEVAQUIN) 00:00: mouth [place] 250 mg 00 every 24 Medical tablet ([facility]- Branch ur) hours. levoFLOXaci 2021-0 Yes [id number] 250mg Take 1 [facility] n 1-21 tablet by ity of (LEVAQUIN) 00:00: mouth [place] 250 mg 00 every 24 Medical tablet ([facility]- Branch ur) hours. levoFLOXaci 2021-0 Yes [id number] 250mg Take 1 [facility] n 1-21 tablet by ity of (LEVAQUIN) 00:00: mouth [place] 250 mg 00 every 24 Medical tablet (twenty- Branch ur) hours. levoFLOXaci 2021-0 Yes [id number] 250mg Take 1 [facility] n 1-21 tablet by ity of (LEVAQUIN) 00:00: mouth [place] 250 mg 00 every 24 Medical tablet ([facility]- Branch ur) hours. levoFLOXaci 2021-0 Yes [id number] 250mg Take 1 [facility] n 1-21 tablet by ity of (LEVAQUIN) 00:00: mouth [place] 250 mg 00 every 24 Medical tablet ([facility] Branch ur) hours. levoFLOXaci 2021-0 Yes [id number] 250mg Take 1 Univers n 1-21 tablet by ity of (LEVAQUIN) 00:00: mouth [place] 250 mg 00 every 24 Medical tablet ([facility] Branch ur) hours. levoFLOXaci 1-0 Yes [id number] 250mg Take 1 [facility] n 1-21 tablet by ity of (LEVAQUIN) 00:00: mouth [place] 250 mg 00 every 24 Medical tablet ([facility] Branch ur) hours. levoFLOXaci 2021-0 Yes [id number] 250mg Take 1 [facility] n 1-21 tablet by ity of (LEVAQUIN) 00:00: mouth [place] 250 mg 00 every 24 Medical tablet ([facility] Branch ur) hours. levoFLOXaci 1-0 Yes [id number] 250mg Take 1 [facility] n 1-21 tablet by ity of (LEVAQUIN) 00:00: mouth [place] 250 mg 00 every 24 Medical tablet ([facility] Branch ur) hours. levoFLOXaci 1-0 Yes [id number] 250mg Take 1 [facility] n 1-21 tablet by ity of (LEVAQUIN) 00:00: mouth [place] 250 mg 00 every 24 Medical tablet ([facility] Branch ur) hours. levoFLOXaci 1-0 Yes [id number] 250mg Take 1 [facility] n 1-21 tablet by ity of (LEVAQUIN) 00:00: mouth [place] 250 mg 00 every 24 Medical tablet ([facility] Branch ur) hours. levofloxaci 2020-0 Yes 250mg Take 250 B [facility] n 1-21 mg by [place] (LEVAQUIN) 00:00: mouth two of 250 MG 00 times Medicin tablet daily. e levoFLOXaci 2021-0 2021- No [id number] 250mg Take 1 Univers n 1-21 05-25 tablet by ity of (LEVAQUIN) 00:00: 00:00 mouth [place] 250 mg 00 :00 every 24 Medical tablet ([facility] Branch ur) hours. levofloxaci 2021-0 2021- No 250mg Take 250 [place] n 1-21 05-05 mg by [place] (LEVAQUIN) 00:00: 00:00 mouth two o f 250 MG 00 :00 times Medicin tablet daily. e finasteride 2021-0 Yes [id number] 5mg Take 1 Univers 5 mg tablet 1-14 tablet by ity of 00:00: mouth [place] 00 daily. Medical Branch finasteride 2020-0 Yes [id number] 5mg Take 1 [facility] 5 mg tablet 1-14 tablet by ity of 00:00: mouth [place] 00 daily. Medical Branch finasteride 2020-0 Yes [id number] 5mg Take 1 [facility] 5 mg tablet 1-14 tablet by ity of 00:00: mouth [place] 00 daily. Medical Branch finasteride 2020-0 Yes [id number] 5mg Take 1 [facility] 5 mg tablet 1-14 tablet by ity of 00:00: mouth [place] 00 daily. Medical Branch finasteride 2020-0 Yes [id number] 5mg Take 1 [facility] 5 mg tablet 1-14 tablet by ity of 00:00: mouth [place] 00 daily. Medical Branch finasteride 0 Yes [id number] 5mg Take 1 [facility] 5 mg tablet 1-14 tablet by ity of 00:00: mouth [place] 00 daily. Medical Branch finasteride 0 Yes [id number] 5mg Take 1 [facility] 5 mg tablet 1-14 tablet by ity of 00:00: mouth [place] 00 daily. Medical Branch finasteride 2020-0 Yes [id number] 5mg Take 1 [facility] 5 mg tablet 1-14 tablet by ity of 00:00: mouth [place] 00 daily. Medical Branch finasteride 2020-0 Yes [id number] 5mg Take 1 [facility] 5 mg tablet 1-14 tablet by ity of 00:00: mouth [place] 00 daily. Medical Branch finasteride 2020-0 Yes [id number] 5mg Take 1 [facility] 5 mg tablet 1-14 tablet by ity of 00:00: mouth [place] 00 daily. Medical Branch finasteride 2020-0 Yes [id number] 5mg Take 1 [facility] 5 mg tablet 1-14 tablet by ity of 00:00: mouth [place] 00 daily. Medical Branch finasteride 2020-0 Yes [id number] 5mg Take 1 [facility] 5 mg tablet 1-14 tablet by ity of 00:00: mouth [place] 00 daily. Medical Branch finasteride 2020-0 Yes [id number] 5mg Take 1 [facility] 5 mg tablet 1-14 tablet by ity of 00:00: mouth [place] 00 daily. Medical Branch finasteride 2020-0 Yes [id number] 5mg Take 1 [facility] 5 mg tablet 1-14 tablet by ity of 00:00: mouth [place] 00 daily. Medical Branch finasteride 2020-0 Yes [id number] 5mg Take 1 [facility] 5 mg tablet 1-14 tablet by ity of 00:00: mouth [place] 00 daily. Medical Branch finasteride 2020-0 Yes [id number] 5mg Take 1 [facility] 5 mg tablet 1-14 tablet by ity of 00:00: mouth [place] 00 daily. Medical Branch finasteride 2020-0 Yes [id number] 5mg Take 1 [facility] 5 mg tablet 1-14 tablet by ity of 00:00: mouth [place] 00 daily. [facility] Branch finasteride 2020-0 Yes [id number] 5mg Take 1 Univers 5 mg tablet 1-14 tablet by ity of 00:00: mouth [place] 00 daily. [facility] Branch finasteride 2020-0 Yes [id number] 5mg Take 1 Univers 5 mg tablet 1-14 tablet by ity of 00:00: mouth [place] 00 daily. Medical Branch finasteride 2020-0 Yes [id number] 5mg Take 1 [facility] 5 mg tablet 1-14 tablet by ity of 00:00: mouth [place] 00 daily. [facility] Branch finasteride 2020-0 Yes [id number] 5mg Take 1 [facility] 5 mg tablet 1-14 tablet by ity of 00:00: mouth [place] 00 daily. [facility] Branch finasteride 2020-0 Yes [id number] 5mg Take 1 [facility] 5 mg tablet 1-14 tablet by ity of 00:00: mouth [place] 00 daily. [facility] Branch finasteride 2020-0 Yes [id number] 5mg Take 1 Univers 5 mg tablet 1-14 tablet by ity of 00:00: mouth [place] 00 daily. [facility] Branch finasteride 2020-0 Yes [id number] 5mg Take 1 Univers 5 mg tablet 1-14 tablet by ity of 00:00: mouth [place] 00 daily. [facility] Branch finasteride 2020-0 Yes [id number] 5mg Take 1 Univers 5 mg tablet 1-14 tablet by ity of 00:00: mouth [place] 00 daily. [facility] Branch finasteride 2020-0 Yes [id number] 5mg Take 1 [facility] 5 mg tablet 1-14 tablet by ity of 00:00: mouth [place] 00 daily. [facility] Branch finasteride 0 Yes [id number] 5mg Take 1 Univers 5 mg tablet 1-14 tablet by ity of 00:00: mouth [place] 00 daily. [facility] Branch finasteride 0 Yes [id number] 5mg Take 1 Univers 5 mg tablet 1-14 tablet by ity of 00:00: mouth [place] 00 daily. [facility] Branch finasteride 0 Yes [id number] 5mg Take 1 Univers 5 mg tablet 1-14 tablet by ity of 00:00: mouth [place] 00 daily. [facility] Branch finasteride 0 Yes [id number] 5mg Take 1 Univers 5 mg tablet 1-14 tablet by ity of 00:00: mouth [place] 00 daily. [facility] finasteride 0 Yes [id number] 5mg Take 1 Univers 5 mg tablet 1-14 tablet by ity of 00:00: mouth [place] 00 daily. [facility] finasteride 0 Yes [id number] 5mg Take 1 [facility] 5 mg tablet 1-14 tablet by ity of 00:00: mouth [place] 00 daily. [facility] finasteride 0 Yes [id number] 5mg Take 1 [facility] 5 mg tablet 1-14 tablet by ity of 00:00: mouth [place] 00 daily. [facility] finasteride 0 Yes [id number] 5mg Take 1 [facility] 5 mg tablet 1-14 tablet by ity of 00:00: mouth [place] 00 daily. [facility] finasteride 0 Yes [id number] 5mg Take 1 [facility] 5 mg tablet 1-14 tablet by ity of 00:00: mouth [place] 00 daily. [facility] finasteride 0 Yes [id number] 5mg Take 1 [facility] 5 mg tablet 1-14 tablet by ity of 00:00: mouth [place] 00 daily. [facility] finasteride 0 Yes [id number] 5mg Take 1 [facility] 5 mg tablet 1-14 tablet by ity of 00:00: mouth [place] 00 daily. [facility] finasteride 0 Yes [id number] 5mg Take 1 [facility] 5 mg tablet 1-14 tablet by ity of 00:00: mouth [place] 00 daily. [facility] Branch ROSUVASTATI 0 Yes [id number] Take 1 [facility] N 5 mg 1-13 tablet by ity of tablet 00:00: mouth once daily Medical Branch ROSUVASTATI Yes [id number] Take 1 [facility] N 5 mg 1-13 tablet by ity of tablet 00:00: mouth once daily Medical Branch ROSUVASTATI Yes [id number] Take 1 [facility] N 5 mg 1-13 tablet by ity of tablet 00:00: mouth once daily Medical Branch ROSUVASTATI 0 Yes [id number] Take 1 [facility] N 5 mg 1-13 tablet by ity of tablet 00:00: mouth once daily Medical Branch ROSUVASTATI Yes [id number] Take 1 [facility] N 5 mg 1-13 tablet by ity of tablet 00:00: mouth once daily Medical Branch ROSUVASTATI Yes [id number] Take 1 [facility] N 5 mg 1-13 tablet by ity of tablet 00:00: mouth once daily Medical Branch ROSUVASTATI Yes [id number] Take 1 [facility] N 5 mg 1-13 tablet by ity of tablet 00:00: mouth once Medical Branch ROSUVASTATI Yes [id number] Take 1 [facility] N 5 mg 1-13 tablet by ity of tablet 00:00: mouth once daily Medical Branch ROSUVASTATI 2020- No [id number] Take 1 [facility] N 5 mg 1-13 -24 tablet by ity of tablet 00:00: 00:00 mouth [place] 00 :00 daily Medical Branch sulfamethox 2020- Yes [id number] 1{tbl} Take 1 Univers azole-trime 2-29 tablet by ity of thoprim 00:00: mouth 2 [place] 800-160 mg 00 (two) Medical per tablet times Branch daily. sulfamethox 2020- Yes [id number] 1{tbl} Take 1 Univers azole-trime 2-29 tablet by ity of thoprim 00:00: mouth 2 [place] 800-160 mg 00 (two) Medical per tablet times Branch daily. sulfamethox 2020- Yes [id number] 1{tbl} Take 1 Univers azole-trime 2-29 tablet by ity of thoprim 00:00: mouth 2 [place] 800-160 mg 00 (two) Medical per tablet times Branch daily. sulfamethox 2020-1 Yes [id number] 1{tbl} Take 1 Univers azole-trime 2-29 tablet by ity of thoprim 00:00: mouth 2 [place] 800-160 mg 00 (two) Medical per tablet times Branch daily. sulfamethox 2020-1 Yes [id number] 1{tbl} Take 1 Univers azole-trime 2-29 tablet by ity of thoprim 00:00: mouth 2 [place] 800-160 mg 00 (two) Medical per tablet times Branch daily. sulfamethox 2020- Yes [id number] 1{tbl} Take 1 [facility] azole-trime 2-29 tablet by ity of thoprim 00:00: mouth 2 [place] 800-160 mg 00 (two) Medical per tablet times Branch daily. sulfamethox 2020- Yes [id number] 1{tbl} Take 1 Univers azole-trime 2-29 tablet by ity of thoprim 00:00: mouth 2 [place] 800-160 mg 00 (two) Medical per tablet times Branch daily. sulfamethox 2020- Yes [id number] 1{tbl} Take 1 Univers azole-trime 2-29 tablet by ity of thoprim 00:00: mouth 2 [place] 800-160 mg 00 (two) Medical per tablet times Branch daily. sulfamethox 2020- Yes [id number] 1{tbl} Take 1 [facility] azole-trime 2-29 tablet by ity of thoprim 00:00: mouth 2 [place] 800-160 mg 00 (two) Medical per tablet times Branch daily. sulfamethox 2020-1 Yes [id number] 1{tbl} Take 1 Univers azole-trime 2-29 tablet by ity of thoprim 00:00: mouth 2 [place] 800-160 mg 00 (two) Medical per tablet times Branch daily. sulfamethox 2020- Yes [id number] 1{tbl} Take 1 Univers azole-trime 2-29 tablet by ity of thoprim 00:00: mouth 2 [place] 800-160 mg 00 (two) Medical per tablet times Branch daily. sulfamethox 2020- Yes [id number] 1{tbl} Take 1 [facility] azole-trime 2-29 tablet by ity of thoprim 00:00: mouth 2 [place] 800-160 mg 00 (two) Medical per tablet times Branch daily. sulfamethox 2020- Yes [id number] 1{tbl} Take 1 Univers azole-trime 2-29 tablet by ity of thoprim 00:00: mouth 2 [place] 800-160 mg 00 (two) Medical per tablet times Branch daily. sulfamethox 2020- Yes [id number] 1{tbl} Take 1 Univers azole-trime 2-29 tablet by ity of thoprim 00:00: mouth 2 [place] 800-160 mg 00 (two) Medical per tablet times Branch daily. sulfamethox 2020- Yes [id number] 1{tbl} Take 1 Univers azole-trime 2-29 tablet by ity of thoprim 00:00: mouth 2 [place] 800-160 mg 00 (two) Medical per tablet times Branch daily. sulfamethox 2020- Yes [id number] 1{tbl} Take 1 Univers azole-trime 2-29 tablet by ity of thoprim 00:00: mouth 2 [place] 800-160 mg 00 (two) Medical per tablet times Branch daily. sulfamethox 2020- Yes [id number] 1{tbl} Take 1 Univers azole-trime 2-29 tablet by ity of thoprim 00:00: mouth 2 [place] 800-160 mg 00 (two) Medical per tablet times Branch daily. sulfamethox 2020- Yes [id number] 1{tbl} Take 1 Univers azole-trime 2-29 tablet by ity of thoprim 00:00: mouth 2 [place] 800-160 mg 00 (two) Medical per tablet times Branch daily. sulfamethox 2020- Yes [id number] 1{tbl} Take 1 Univers azole-trime 2-29 tablet by ity of thoprim 00:00: mouth 2 [place] 800-160 mg 00 (two) Medical per tablet times Branch daily. sulfamethox 2020- Yes [id number] 1{tbl} Take 1 Univers azole-trime 2-29 tablet by ity of thoprim 00:00: mouth 2 [place] 800-160 mg 00 (two) Medical per tablet times Branch daily. sulfamethox 2020- Yes [id number] 1{tbl} Take 1 Univers azole-trime 2-29 tablet by ity of thoprim 00:00: mouth 2 [place] 800-160 mg 00 (two) Medical per tablet times Branch daily. sulfamethox 2020- 2021- No [id number] 1{tbl} Take 1 Univers azole-trime 2-29 03-16 tablet by it y of thoprim 00:00: 00:00 mouth 2 [place] 800-160 mg 00 :00 (two) Medical per tablet times Branch daily. sulfamethox 2019-06- No [id number] 1{tbl} Take 1 Univers azole-trime 2-29 03-16 tablet by it y of thoprim 00:00: 00:00 mouth 2 [place] 800-160 mg 00 :00 (two) Medical per tablet times Branch daily. ciprofloxac 2019-06 Yes [id number] 500mg Take 1 Univers in HCl 500 2-26 tablet by ity of mg tablet 00:00: mouth [place] 00 every 12 Medical (twelve) Branch hours. ciprofloxac 2019-06- No [id number] 500mg Take 1 [facility] in HCl 500 2-26 -29 tablet by ity of mg tablet 00:00: 00:00 mouth [place] 00 :00 every 12 Medical (twelve) Branch hours. ciprofloxac 2019-06- No [id number] 500mg Take 1 Univers in HCl 500 -28 05- tablet by ity of mg tablet 00:00: 00:00 mouth [place] 00 :00 every 12 Medical (twelve) Branch hours. iohexol 2019-06- No 130mL 130 mL, Unive rs (OMNIPAQUE 07-25 Intravenou it y of 350 18:00: 17:49 s, ONCE, 1 [place] BULK-150 00 :00 dose, Tue Medica l mL) 05/24/20 Branch injection at 1200, 130 mL Routine finasteride 2019-06 2020- No 5mg Take 5 mg [facility] 5 mg tablet -16 -16 by mouth ity of 20:03: 00:00 daily. [place] 26 :00 [facility] Branch finasteride 2019-06 2020- No 5mg Take 5 mg [facility] 5 mg tablet -16 -16 by mouth ity of 20:03: 00:00 daily. [place] 26 :00 [facility] Branch finasteride 2019-06 2020- No 5mg Take 5 mg Univers 5 mg tablet -16 -16 by mouth ity of 20:03: 00:00 daily. [place] 26 :00 [facility] Branch finasteride 2019-06- No 5mg Take 5 mg Univers 5 mg tablet 07-19 by mouth ity of 20:03: 00:00 daily. [place] 26 :00 [facility] finasteride 2019-06 2020- No 5mg Take 5 mg Univers 5 mg tablet 07-19 by mouth ity of 20:03: 00:00 daily. [place] 26 :00 [facility] Branch liraglutide 2019-06 Yes inject Univ ers (VICTOZA 2-16 under the ity of 2-HOMERO) 0.6 19:45: skin. [place] mg/0.1 mL 25 Medical (18 mg/3 Branch mL) injection liraglutide 2019-06 Yes inject Univ ers (VICTOZA 2-16 under the ity of 2-HOMERO) 0.6 19:45: skin. [place] mg/0.1 mL 25 Medical (18 mg/3 Branch mL) injection liraglutide 2019-06 Yes inject Univ ers (VICTOZA 2-16 under the ity of 2-HOMERO) 0.6 19:45: skin. [place] mg/0.1 mL 25 Medical (18 mg/3 Branch mL) injection liraglutide 2019-06 Yes inject Univ ers (VICTOZA 2-16 under the ity of 2-HOMERO) 0.6 19:45: skin. [place] mg/0.1 mL 25 Medical (18 mg/3 Branch mL) injection liraglutide 2019-06 Yes inject Univ ers (VICTOZA 2-16 under the ity of 2-HOMERO) 0.6 19:45: skin. [place] mg/0.1 mL 25 Medical (18 mg/3 Branch mL) injection liraglutide 2019-06 Yes inject Univ ers (VICTOZA 2-16 under the ity of 2-HOMERO) 0.6 19:45: skin. [place] mg/0.1 mL 25 Medical (18 mg/3 Branch mL) injection liraglutide 2019- Yes inject Univ ers (VICTOZA 2-16 under the ity of 2-HOMERO) 0.6 19:45: skin. [place] mg/0.1 mL 25 Medical (18 mg/3 Branch mL) injection liraglutide 2019- Yes inject Univ ers (VICTOZA 2-16 under the ity of 2-HOMERO) 0.6 19:45: skin. [place] mg/0.1 mL 25 Medical (18 mg/3 Branch mL) injection liraglutide 2019- Yes inject Univ ers (VICTOZA 2-16 under the ity of 2-HOMERO) 0.6 19:45: skin. [place] mg/0.1 mL 25 Medical (18 mg/3 Branch mL) injection liraglutide 2020- Yes inject Univ ers (VICTOZA 2-16 under the ity of 2-HOMERO) 0.6 19:45: skin. [place] mg/0.1 mL 25 Medical (18 mg/3 Branch mL) injection liraglutide 2020- Yes inject Univ ers (VICTOZA 2-16 under the ity of 2-HOMERO) 0.6 19:45: skin. [place] mg/0.1 mL 25 Medical (18 mg/3 Branch mL) injection liraglutide 2020- Yes inject Univ ers (VICTOZA 2-16 under the ity of 2-HOMERO) 0.6 19:45: skin. [place] mg/0.1 mL 25 Medical (18 mg/3 Branch mL) injection liraglutide 2020- Yes inject Univ ers (VICTOZA 2-16 under the ity of 2-HOMERO) 0.6 19:45: skin. [place] mg/0.1 mL 25 Medical (18 mg/3 Branch mL) injection liraglutide 2020- Yes inject Univ ers (VICTOZA 2-16 under the ity of 2-HOMERO) 0.6 19:45: skin. [place] mg/0.1 mL 25 Medical (18 mg/3 Branch mL) injection liraglutide 2020- Yes inject Univ ers (VICTOZA 2-16 under the ity of 2-HOMERO) 0.6 19:45: skin. [place] mg/0.1 mL 25 Medical (18 mg/3 Branch mL) injection liraglutide 2020- Yes inject Univ ers (VICTOZA 2-16 under the ity of 2-HOMERO) 0.6 19:45: skin. [place] mg/0.1 mL 25 Medical (18 mg/3 Branch mL) injection liraglutide 2020-1 Yes inject Univ ers (VICTOZA 2-16 under the ity of 2-HOMERO) 0.6 19:45: skin. [place] mg/0.1 mL 25 Medical (18 mg/3 Branch mL) injection liraglutide 2020- Yes inject Univ ers (VICTOZA 2-16 under the ity of 2-HOMERO) 0.6 19:45: skin. [place] mg/0.1 mL 25 Medical (18 mg/3 Branch mL) injection liraglutide 2020-1 Yes inject Univ ers (VICTOZA 2-16 under the ity of 2-HOMERO) 0.6 19:45: skin. [place] mg/0.1 mL 25 Medical (18 mg/3 Branch mL) injection liraglutide 2020-1 Yes inject Univ ers (VICTOZA 2-16 under the ity of 2-HOMERO) 0.6 19:45: skin. [place] mg/0.1 mL 25 Medical (18 mg/3 Branch mL) injection liraglutide 2020- Yes inject Univ ers (VICTOZA 2-16 under the ity of 2-HOMERO) 0.6 19:45: skin. [place] mg/0.1 mL 25 Medical (18 mg/3 Branch mL) injection liraglutide 2020-1 Yes inject Univ ers (VICTOZA 2-16 under the ity of 2-HOMERO) 0.6 19:45: skin. [place] mg/0.1 mL 25 Medical (18 mg/3 Branch mL) injection liraglutide 2020- Yes inject Univ ers (VICTOZA 2-16 under the ity of 2-HOMERO) 0.6 19:45: skin. [place] mg/0.1 mL 25 Medical (18 mg/3 Branch mL) injection liraglutide 2020-1 Yes inject Univ ers (VICTOZA 2-16 under the ity of 2-HOMERO) 0.6 19:45: skin. [place] mg/0.1 mL 25 Medical (18 mg/3 Branch mL) injection liraglutide 2020- Yes inject Univ ers (VICTOZA 2-16 under the ity of 2-HOMERO) 0.6 19:45: skin. [place] mg/0.1 mL 25 Medical (18 mg/3 Branch mL) injection liraglutide 2020-1 Yes inject Univ ers (VICTOZA 2-16 under the ity of 2-HOMERO) 0.6 19:45: skin. [place] mg/0.1 mL 25 Medical (18 mg/3 Branch mL) injection liraglutide 2020-1 Yes inject Univ ers (VICTOZA 2-16 under the ity of 2-HOMERO) 0.6 19:45: skin. [place] mg/0.1 mL 25 Medical (18 mg/3 Branch mL) injection liraglutide 2020-1 Yes inject Univ ers (VICTOZA 2-16 under the ity of 2-HOMERO) 0.6 19:45: skin. [place] mg/0.1 mL 25 Medical (18 mg/3 Branch mL) injection liraglutide 2020- Yes inject Univ ers (VICTOZA 2-16 under the ity of 2-HOMERO) 0.6 19:45: skin. [place] mg/0.1 mL 25 Medical (18 mg/3 Branch mL) injection liraglutide 2020- Yes inject Univ ers (VICTOZA 2-16 under the ity of 2-HOMERO) 0.6 19:45: skin. [place] mg/0.1 mL 25 Medical (18 mg/3 Branch mL) injection liraglutide 2020- Yes inject Univ ers (VICTOZA 2-16 under the ity of 2-HOMERO) 0.6 19:45: skin. [place] mg/0.1 mL 25 Medical (18 mg/3 Branch mL) injection liraglutide 2020- Yes inject Univ ers (VICTOZA 2-16 under the ity of 2-HOMERO) 0.6 19:45: skin. [place] mg/0.1 mL 25 Medical (18 mg/3 Branch mL) injection liraglutide 2020- Yes inject Univ ers (VICTOZA 2-16 under the ity of 2-HOMERO) 0.6 19:45: skin. [place] mg/0.1 mL 25 Medical (18 mg/3 Branch mL) injection liraglutide 2020- Yes inject Univ ers (VICTOZA 2-16 under the ity of 2-HOMERO) 0.6 19:45: skin. [place] mg/0.1 mL 25 Medical (18 mg/3 Branch mL) injection liraglutide 2020- Yes inject Univ ers (VICTOZA 2-16 under the ity of 2-HOMERO) 0.6 19:45: skin. [place] mg/0.1 mL 25 Medical (18 mg/3 Branch mL) injection liraglutide 2020-1 Yes inject Univ ers (VICTOZA 2-16 under the ity of 2-HOMERO) 0.6 19:45: skin. [place] mg/0.1 mL 25 Medical (18 mg/3 Branch mL) injection liraglutide 2020-1 Yes inject Univ ers (VICTOZA 2-16 under the ity of 2-HOMERO) 0.6 19:45: skin. [place] mg/0.1 mL 25 Medical (18 mg/3 Branch mL) injection liraglutide 2019- Yes inject Univ ers (VICTOZA 2-16 under the ity of 2-HOMERO) 0.6 19:45: skin. [place] mg/0.1 mL 25 Medical (18 mg/3 Branch mL) injection liraglutide 2019- Yes inject Univ ers (VICTOZA 2-16 under the ity of 2-HOMERO) 0.6 19:45: skin. [place] mg/0.1 mL 25 Medical (18 mg/3 Branch mL) injection liraglutide 2019- Yes inject Univ ers (VICTOZA 2-16 under the ity of 2-HOMERO) 0.6 19:45: skin. [place] mg/0.1 mL 25 Medical (18 mg/3 Branch mL) injection liraglutide 2019- Yes inject Univ ers (VICTOZA 2-16 under the ity of 2-HOMERO) 0.6 19:45: skin. [place] mg/0.1 mL 25 Medical (18 mg/3 Branch mL) injection liraglutide 2019- Yes inject Univ ers (VICTOZA 2-16 under the ity of 2-HOMERO) 0.6 19:45: skin. [place] mg/0.1 mL 25 Medical (18 mg/3 Branch mL) injection liraglutide 2019- Yes inject Univ ers (VICTOZA 2-16 under the ity of 2-HOMERO) 0.6 19:45: skin. [place] mg/0.1 mL 25 Medical (18 mg/3 Branch mL) injection tamsulosin 2019- Yes [id number] .4mg Take 1 [facility] 0.4 mg 24 2-16 capsule by ity of hr capsule 00:00: mouth at [place] as 00 bedtime. Medical Branch tamsulosin 2019- Yes [id number] .4mg Take 1 [facility] 0.4 mg 24 2-16 capsule by ity of hr capsule 00:00: mouth at [place] as 00 bedtime. Medical Branch tamsulosin 2019- Yes [id number] .4mg Take 1 [facility] 0.4 mg 24 2-16 capsule by ity of hr capsule 00:00: mouth at [place] as 00 bedtime. Medical Branch tamsulosin 2019- Yes [id number] .4mg Take 1 [facility] 0.4 mg 24 2-16 capsule by ity of hr capsule 00:00: mouth at [place] as 00 bedtime. Medical Branch tamsulosin 2020-1 Yes [id number] .4mg Take 1 [facility] 0.4 mg 24 2-16 capsule by ity of hr capsule 00:00: mouth at [place] 00 bedtime. Medical Branch tamsulosin 2020-1 Yes [id number] .4mg Take 1 [facility] 0.4 mg 24 2-16 capsule by ity of hr capsule 00:00: mouth at [place] 00 bedtime. Medical Branch tamsulosin 2020-1 Yes [id number] .4mg Take 1 [facility] 0.4 mg 24 2-16 capsule by ity of hr capsule 00:00: mouth at [place] 00 bedtime. Medical Branch tamsulosin 2020-1 Yes [id number] .4mg Take 1 [facility] 0.4 mg 24 2-16 capsule by ity of hr capsule 00:00: mouth at [place] 00 bedtime. Medical Branch tamsulosin 2020-1 Yes [id number] .4mg Take 1 [facility] 0.4 mg 24 2-16 capsule by ity of hr capsule 00:00: mouth at [place] as 00 bedtime. Medical Branch tamsulosin 2020-1 Yes [id number] .4mg Take 1 [facility] 0.4 mg 24 2-16 capsule by ity of hr capsule 00:00: mouth at [place] as 00 bedtime. Medical Branch tamsulosin 2020-1 Yes [id number] .4mg Take 1 [facility] 0.4 mg 24 2-16 capsule by ity of hr capsule 00:00: mouth at [place] as 00 bedtime. Medical Branch tamsulosin 2020-1 Yes [id number] .4mg Take 1 [facility] 0.4 mg 24 2-16 capsule by ity of hr capsule 00:00: mouth at [place] as 00 bedtime. Medical Branch tamsulosin 2020-1 Yes [id number] .4mg Take 1 [facility] 0.4 mg 24 2-16 capsule by ity of hr capsule 00:00: mouth at [place] as 00 bedtime. Medical Branch tamsulosin 2020-1 Yes [id number] .4mg Take 1 [facility] 0.4 mg 24 2-16 capsule by ity of hr capsule 00:00: mouth at [place] as 00 bedtime. Medical Branch tamsulosin 2020-1 Yes [id number] .4mg Take 1 [facility] 0.4 mg 24 2-16 capsule by ity of hr capsule 00:00: mouth at [place] as 00 bedtime. Medical Branch tamsulosin 2020-1 Yes [id number] .4mg Take 1 [facility] 0.4 mg 24 2-16 capsule by ity of hr capsule 00:00: mouth at [place] as 00 bedtime. Medical Branch tamsulosin 2020-1 Yes [id number] .4mg Take 1 [facility] 0.4 mg 24 2-16 capsule by ity of hr capsule 00:00: mouth at [place] as 00 bedtime. Medical Branch tamsulosin 2020-1 Yes [id number] .4mg Take 1 [facility] 0.4 mg 24 2-16 capsule by ity of hr capsule 00:00: mouth at [place] as 00 bedtime. Medical Branch tamsulosin 2020-1 Yes [id number] .4mg Take 1 [facility] 0.4 mg 24 2-16 capsule by ity of hr capsule 00:00: mouth at [place] as 00 bedtime. Medical Branch tamsulosin 2020-1 Yes [id number] .4mg Take 1 [facility] 0.4 mg 24 2-16 capsule by ity of hr capsule 00:00: mouth at [place] as 00 bedtime. Medical Branch tamsulosin 2020-1 Yes [id number] .4mg Take 1 [facility] 0.4 mg 24 2-16 capsule by ity of hr capsule 00:00: mouth at [place] as 00 bedtime. Medical Branch tamsulosin 2020-1 Yes [id number] .4mg Take 1 [facility] 0.4 mg 24 2-16 capsule by ity of hr capsule 00:00: mouth at [place] as 00 bedtime. Medical Branch tamsulosin 2020-1 Yes [id number] .4mg Take 1 [facility] 0.4 mg 24 2-16 capsule by ity of hr capsule 00:00: mouth at [place] as 00 bedtime. Medical Branch tamsulosin 2020-1 Yes [id number] .4mg Take 1 [facility] 0.4 mg 24 2-16 capsule by ity of hr capsule 00:00: mouth at [place] as 00 bedtime. Medical Branch tamsulosin 2020-1 Yes [id number] .4mg Take 1 [facility] 0.4 mg 24 2-16 capsule by ity of hr capsule 00:00: mouth at [place] as 00 bedtime. Medical Branch tamsulosin 2020-1 Yes [id number] .4mg Take 1 [facility] 0.4 mg 24 2-16 capsule by ity of hr capsule 00:00: mouth at [place] as 00 bedtime. Medical Branch tamsulosin 2020-1 Yes [id number] .4mg Take 1 [facility] 0.4 mg 24 2-16 capsule by ity of hr capsule 00:00: mouth at [place] as 00 bedtime. Medical Branch tamsulosin 2020-1 Yes [id number] .4mg Take 1 [facility] 0.4 mg 24 2-16 capsule by ity of hr capsule 00:00: mouth at [place] as 00 bedtime. Medical Branch finasteride 2020-1 Yes [id number] 5mg Take 1 [facility] 5 mg tablet 2-16 tablet by ity of 00:00: mouth [place] 00 daily. Medical Branch tamsulosin 2020-1 Yes [id number] .4mg Take 1 [facility] 0.4 mg 24 2-16 capsule by ity of hr capsule 00:00: mouth at [place] as 00 bedtime. Medical Branch finasteride 2020-1 Yes [id number] 5mg Take 1 [facility] 5 mg tablet 2-16 tablet by ity of 00:00: mouth [place] 00 daily. Medical Branch tamsulosin 2019-1 Yes [id number] .4mg Take 1 [facility] 0.4 mg 24 2-16 capsule by ity of hr capsule 00:00: mouth at [place] as 00 bedtime. Medical Branch finasteride 2020-1 Yes [id number] 5mg Take 1 [facility] 5 mg tablet 2-16 tablet by ity of 00:00: mouth [place] 00 daily. Medical Branch tamsulosin 2019-1 Yes [id number] .4mg Take 1 [facility] 0.4 mg 24 2-16 capsule by ity of hr capsule 00:00: mouth at [place] as 00 bedtime. Medical Branch finasteride 2020-1 Yes [id number] 5mg Take 1 [facility] 5 mg tablet 2-16 tablet by ity of 00:00: mouth [place] 00 daily. Medical Branch tamsulosin 2020-1 Yes [id number] .4mg Take 1 [facility] 0.4 mg 24 2-16 capsule by ity of hr capsule 00:00: mouth at [place] as 00 bedtime. Medical Branch finasteride 2020-1 Yes [id number] 5mg Take 1 [facility] 5 mg tablet 2-16 tablet by ity of 00:00: mouth [place] 00 daily. Medical Branch tamsulosin 2020-1 Yes [id number] .4mg Take 1 [facility] 0.4 mg 24 2-16 capsule by ity of hr capsule 00:00: mouth at [place] 00 bedtime. Medical Branch finasteride 2020-1 Yes [id number] 5mg Take 1 [facility] 5 mg tablet 2-16 tablet by ity of 00:00: mouth [place] 00 daily. Medical Branch tamsulosin 2020-1 Yes [id number] .4mg Take 1 [facility] 0.4 mg 24 2-16 capsule by ity of hr capsule 00:00: mouth at [place] 00 bedtime. Medical Branch finasteride 2020-1 Yes [id number] 5mg Take 1 [facility] 5 mg tablet 2-16 tablet by ity of 00:00: mouth [place] 00 daily. Medical Branch tamsulosin 2019-1 Yes [id number] .4mg Take 1 [facility] 0.4 mg 24 2-16 capsule by ity of hr capsule 00:00: mouth at [place] 00 bedtime. Medical Branch finasteride 2019-1 Yes [id number] 5mg Take 1 [facility] 5 mg tablet 2-16 tablet by ity of 00:00: mouth [place] 00 daily. Medical Branch tamsulosin 2019-1 Yes [id number] .4mg Take 1 [facility] 0.4 mg 24 2-16 capsule by ity of hr capsule 00:00: mouth at [place] 00 bedtime. Medical Branch finasteride 2020-1 Yes [id number] 5mg Take 1 [facility] 5 mg tablet 2-16 tablet by ity of 00:00: mouth [place] 00 daily. Medical Branch tamsulosin 2019-1 Yes [id number] .4mg Take 1 [facility] 0.4 mg 24 2-16 capsule by ity of hr capsule 00:00: mouth at [place] 00 bedtime. Medical Branch finasteride 2020-1 Yes [id number] 5mg Take 1 [facility] 5 mg tablet 2-16 tablet by ity of 00:00: mouth [place] 00 daily. Medical Branch tamsulosin 2020-1 Yes [id number] .4mg Take 1 [facility] 0.4 mg 24 2-16 capsule by ity of hr capsule 00:00: mouth at [place] as 00 bedtime. Medical Branch finasteride 2020-1 Yes [id number] 5mg Take 1 [facility] 5 mg tablet 2-16 tablet by ity of 00:00: mouth [place] 00 daily. Medical Branch tamsulosin 2020-1 Yes [id number] .4mg Take 1 [facility] 0.4 mg 24 2-16 capsule by ity of hr capsule 00:00: mouth at [place] as 00 bedtime. Medical Branch finasteride 2020-1 Yes [id number] 5mg Take 1 [facility] 5 mg tablet 2-16 tablet by ity of 00:00: mouth [place] 00 daily. Medical Branch tamsulosin 2019-1 Yes [id number] .4mg Take 1 [facility] 0.4 mg 24 2-16 capsule by ity of hr capsule 00:00: mouth at [place] as 00 bedtime. Medical Branch finasteride 2020-1 Yes [id number] 5mg Take 1 [facility] 5 mg tablet 2-16 tablet by ity of 00:00: mouth [place] 00 daily. Medical Branch tamsulosin 2019-1 Yes [id number] .4mg Take 1 [facility] 0.4 mg 24 2-16 capsule by ity of hr capsule 00:00: mouth at [place] as 00 bedtime. Medical Branch finasteride 2019-1 Yes [id number] 5mg Take 1 [facility] 5 mg tablet 2-16 tablet by ity of 00:00: mouth [place] 00 daily. Medical Branch tamsulosin 2019-1 Yes [id number] .4mg Take 1 [facility] 0.4 mg 24 2-16 capsule by ity of hr capsule 00:00: mouth at [place] as 00 bedtime. Medical Branch finasteride 2019-1 Yes [id number] 5mg Take 1 [facility] 5 mg tablet 2-16 tablet by ity of 00:00: mouth [place] 00 daily. Medical Branch tamsulosin 2019-1 Yes [id number] .4mg Take 1 [facility] 0.4 mg 24 2-16 capsule by ity of hr capsule 00:00: mouth at [place] as 00 bedtime. [facility] Branch finasteride 2020-1 Yes [id number] 5mg Take 1 [facility] 5 mg tablet 2-16 tablet by ity of 00:00: mouth [place] 00 daily. Medical Branch tamsulosin 2020-1 Yes [id number] .4mg Take 1 [facility] 0.4 mg 24 2-16 capsule by ity of hr capsule 00:00: mouth at [place] as 00 bedtime. [facility] Branch finasteride 2019-1 Yes [id number] 5mg Take 1 [facility] 5 mg tablet 2-16 tablet by ity of 00:00: mouth [place] 00 daily. [facility] Branch tamsulosin 2019-1 Yes [id number] .4mg Take 1 [facility] 0.4 mg 24 2-16 capsule by ity of hr capsule 00:00: mouth at [place] as 00 bedtime. [facility] Branch tamsulosin 2020-1 Yes [id number] .4mg Take 1 [facility] 0.4 mg 24 2-16 capsule by ity of hr capsule 00:00: mouth at [place] as 00 bedtime. [facility] Branch tamsulosin 2019- Yes [id number] .4mg Take 1 [facility] 0.4 mg 24 2-16 capsule by ity of hr capsule 00:00: mouth at [place] as 00 bedtime. [facility] Branch tamsulosin 2019- Yes [id number] .4mg Take 1 [facility] 0.4 mg 24 2-16 capsule by ity of hr capsule 00:00: mouth at [place] as 00 bedtime. [facility] Branch tamsulosin 2019- Yes [id number] .4mg Take 1 [facility] 0.4 mg 24 2-16 capsule by ity of hr capsule 00:00: mouth at [place] as 00 bedtime. [facility] Branch tamsulosin 2019- Yes [id number] .4mg Take 1 [facility] 0.4 mg 24 2-16 capsule by ity of hr capsule 00:00: mouth at [place] as 00 bedtime. [facility] Branch tamsulosin 2019- Yes [id number] .4mg Take 1 [facility] 0.4 mg 24 2-16 capsule by ity of hr capsule 00:00: mouth at [place] as 00 bedtime. [facility] Branch tamsulosin 2019- Yes [id number] .4mg Take 1 [facility] 0.4 mg 24 2-16 capsule by ity of hr capsule 00:00: mouth at [place] as 00 bedtime. [facility] Branch tamsulosin 2019-1 Yes [id number] .4mg Take 1 [facility] 0.4 mg 24 2-16 capsule by ity of hr capsule 00:00: mouth at [place] as 00 bedtime. [facility] Branch tamsulosin 2020-1 Yes [id number] .4mg Take 1 [facility] 0.4 mg 24 2-16 capsule by ity of hr capsule 00:00: mouth at [place] as 00 bedtime. [facility] Branch tamsulosin 2019- Yes [id number] .4mg Take 1 [facility] 0.4 mg 24 2-16 capsule by ity of hr capsule 00:00: mouth at [place] as 00 bedtime. [facility] Branch tamsulosin 2020-1 Yes [id number] .4mg Take 1 [facility] 0.4 mg 24 2-16 capsule by ity of hr capsule 00:00: mouth at [place] 00 bedtime. [facility] Branch finasteride 2019-06- No [id number] 5mg Take 1 [facility] 5 mg tablet 2-16 -14 tablet by it y of 00:00: 00:00 mouth [place] 00 :00 daily. Medical Branch finasteride 2019-06- No [id number] 5mg Take 1 [facility] 5 mg tablet 2-16 -14 tablet by it y of 00:00: 00:00 mouth [place] 00 :00 daily. Medical Branch ROSUVASTATI 2019-06 Yes [id number] Take 1 [facility] N 5 mg 2-10 tablet by ity of tablet 00:00: mouth once [place] daily Medical Branch ROSUVASTATI 2019-06 Yes [id number] Take 1 [facility] N 5 mg 2-10 tablet by ity of tablet 00:00: mouth once [place] daily Medical Branch ROSUVASTATI 2019- Yes [id number] Take 1 [facility] N 5 mg 2-10 tablet by ity of tablet 00:00: mouth once [place] daily Medical Branch ROSUVASTATI 2019-06 Yes [id number] Take 1 [facility] N 5 mg 2-10 tablet by ity of tablet 00:00: mouth once [place] daily Medical Branch ROSUVASTATI 2020- Yes [id number] Take 1 [facility] N 5 mg 2-10 tablet by ity of tablet 00:00: mouth once [place] daily Medical Branch ROSUVASTATI 2020- Yes [id number] Take 1 [facility] N 5 mg 2-10 tablet by ity of tablet 00:00: mouth once [place] daily Medical Branch ROSUVASTATI 2020- Yes [id number] Take 1 [facility] N 5 mg 2-10 tablet by ity of tablet 00:00: mouth once [place] daily Medical Branch ROSUVASTATI 2020- Yes [id number] Take 1 [facility] N 5 mg 2-10 tablet by ity of tablet 00:00: mouth once [place] daily Medical Branch ROSUVASTATI 2020- Yes [id number] Take 1 [facility] N 5 mg 2-10 tablet by ity of tablet 00:00: mouth once [place] daily Medical Branch ROSUVASTATI 2020- Yes [id number] Take 1 [facility] N 5 mg 2-10 tablet by ity of tablet 00:00: mouth once daily [facility] Branch ROSUVASTATI 2019-06 Yes [id number] Take 1 [facility] N 5 mg 2-10 tablet by ity of tablet 00:00: mouth once daily [facility] Branch ROSUVASTATI 2019-06 Yes [id number] Take 1 [facility] N 5 mg 2-10 tablet by ity of tablet 00:00: mouth once daily [facility] Branch ROSUVASTATI 2019-06 Yes [id number] Take 1 [facility] N 5 mg 2-10 tablet by ity of tablet 00:00: mouth once daily [facility] ROSUVASTATI 2019-06 Yes [id number] Take 1 [facility] N 5 mg 2-10 tablet by ity of tablet 00:00: mouth once daily [facility] Branch ROSUVASTATI 2019-06 Yes [id number] Take 1 [facility] N 5 mg 2-10 tablet by ity of tablet 00:00: mouth once daily [facility] ROSUVASTATI 2019-06 Yes [id number] Take 1 [facility] N 5 mg 2-10 tablet by ity of tablet 00:00: mouth once daily [facility] ROSUVASTATI 2019-06 Yes [id number] Take 1 [facility] N 5 mg 2-10 tablet by ity of tablet 00:00: mouth once daily [facility] Branch ROSUVASTATI 2019-06- No [id number] Take 1 [facility] N 5 mg 2-10 01-13 tablet by ity of tablet 00:00: 00:00 mouth [place] 00 :00 daily [facility] ROSUVASTATI 2019-06- No [id number] Take 1 [facility] N 5 mg 2-10 01-13 tablet by ity of tablet 00:00: 00:00 mouth [place] 00 :00 daily [facility] docusate 2019-06 Yes 250mg Take 250 Univ ers sodium 250 2-08 mg by ity of mg capsule 15:46: mouth daily. [facility] Branch cetirizine 2019-06 Yes 10mg Take 10 mg U nivers (ZYRTEC) 10 2-08 by mouth ity of mg tablet 15:46: at [place] bedtime. [facility] Branch cetirizine 2019-06 Yes 10mg Take 10 mg U nivers (ZYRTEC) 10 2-08 by mouth ity of mg tablet 15:46: at [place] 01 bedtime. [facility] Branch docusate 2019- Yes 250mg Take 250 Univ ers sodium 250 2-08 mg by ity of mg capsule 15:46: mouth [place] 01 daily. [facility] Branch cetirizine 2019- Yes 10mg Take 10 mg U nivers (ZYRTEC) 10 2-08 by mouth ity of mg tablet 15:46: at [place] 01 bedtime. [facility] Branch docusate 2019- Yes 250mg Take 250 Univ ers sodium 250 2-08 mg by ity of mg capsule 15:46: mouth [place] 01 daily. [facility] cetirizine 2019- Yes 10mg Take 10 mg U nivers (ZYRTEC) 10 2-08 by mouth ity of mg tablet 15:46: at [place] 01 bedtime. [facility] docusate 2019- Yes 250mg Take 250 Univ ers sodium 250 2-08 mg by ity of mg capsule 15:46: mouth [place] 01 daily. [facility] cetirizine 2019- Yes 10mg Take 10 mg U nivers (ZYRTEC) 10 2-08 by mouth ity of mg tablet 15:46: at [place] 01 bedtime. [facility] docusate 2019- Yes 250mg Take 250 Univ ers sodium 250 2-08 mg by ity of mg capsule 15:46: mouth [place] daily. [facility] cetirizine 2019- Yes 10mg Take 10 mg U nivers (ZYRTEC) 10 2-08 by mouth ity of mg tablet 15:46: at [place] 01 bedtime. [facility] Branch cetirizine 2019- Yes 10mg Take 10 mg U nivers (ZYRTEC) 10 2-08 by mouth ity of mg tablet 15:46: at [place] 01 bedtime. [facility] Branch cetirizine 2019- Yes 10mg Take 10 mg U nivers (ZYRTEC) 10 2-08 by mouth ity of mg tablet 15:46: at [place] 01 bedtime. [facility] cetirizine 2019- Yes 10mg Take 10 mg U nivers (ZYRTEC) 10 2-08 by mouth ity of mg tablet 15:46: at [place] 01 bedtime. [facility] Branch cetirizine 2019- Yes 10mg Take 10 mg U nivers (ZYRTEC) 10 2-08 by mouth ity of mg tablet 15:46: at [place] [id number] bedtime. Medical Branch cetirizine 2019- Yes 10mg Take 10 mg U nivers (ZYRTEC) 10 2-08 by mouth ity of mg tablet 15:46: at [place] bedtime. [facility] Branch cetirizine 2019- Yes 10mg Take 10 mg U nivers (ZYRTEC) 10 2-08 by mouth ity of mg tablet 15:46: at [place] bedtime. [facility] Branch cetirizine 2019- Yes 10mg Take 10 mg U nivers (ZYRTEC) 10 2-08 by mouth ity of mg tablet 15:46: at [place] bedtime. [facility] cetirizine 2019- Yes 10mg Take 10 mg U nivers (ZYRTEC) 10 2-08 by mouth ity of mg tablet 15:46: at [place] bedtime. [facility] Branch cetirizine 2019- Yes 10mg Take 10 mg U nivers (ZYRTEC) 10 2-08 by mouth ity of mg tablet 15:46: at [place] [id number] bedtime. Medical Branch cetirizine 2019- Yes 10mg Take 10 mg U nivers (ZYRTEC) 10 2-08 by mouth ity of mg tablet 15:46: at [place] [address] bedtime. [facility] Branch cetirizine 2019- Yes 10mg Take 10 mg U nivers (ZYRTEC) 10 2-08 by mouth ity of mg tablet 15:46: at [place] [id number] bedtime. [facility] cetirizine 2019- Yes 10mg Take 10 mg [facility] (ZYRTEC) 10 2-08 by mouth ity of mg tablet 15:46: at [place] [address] bedtime. [facility] cetirizine 2019- Yes 10mg Take 10 mg [facility] (ZYRTEC) 10 2-08 by mouth ity of mg tablet 15:46: at [place] [address] bedtime. [facility] cetirizine 2019- Yes 10mg Take 10 mg [facility] (ZYRTEC) 10 2-08 by mouth ity of mg tablet 15:46: at [place] [address] bedtime. [facility] cetirizine 2019- Yes 10mg Take 10 mg [facility] (ZYRTEC) 10 2-08 by mouth ity of mg tablet 15:46: at [place] 01 bedtime. [facility] cetirizine 2019- Yes 10mg Take 10 mg [facility] (ZYRTEC) 10 2-08 by mouth ity of mg tablet 15:46: at [place] 01 bedtime. [facility] docusate 2019- Yes 250mg Take 250 [facility] sodium 250 2-08 mg by ity of mg capsule 15:46: mouth [place] 01 daily. [facility] cetirizine 2019-06 Yes 10mg Take 10 mg [facility] (ZYRTEC) 10 2-08 by mouth ity of mg tablet 15:46: at [place] 01 bedtime. [facility] liraglutide 2019-06 Yes inject [facility] (VICTOZA 2-08 under the ity of 2-HOMERO) 0.6 15:46: skin. [place] mg/0.1 mL 01 Medical (18 mg/3 Branch mL) injection docusate 2019-06 Yes 250mg Take 250 [facility] sodium 250 2-08 mg by ity of mg capsule 15:46: mouth [place] 01 daily. [facility] cetirizine 2019-06 Yes 10mg Take 10 mg [facility] (ZYRTEC) 10 2-08 by mouth ity of mg tablet 15:46: at [place] 01 bedtime. [facility] liraglutide 2019-06 Yes inject [facility] (VICTOZA 2-08 under the ity of 2-HOMERO) 0.6 15:46: skin. [place] mg/0.1 mL 01 Medical (18 mg/3 [facility] mL) injection docusate 2019-06 Yes 250mg Take 250 [facility] sodium 250 2-08 mg by ity of mg capsule 15:46: mouth [place] 01 daily. [facility] cetirizine 2019-06 Yes 10mg Take 10 mg [facility] (ZYRTEC) 10 2-08 by mouth ity of mg tablet 15:46: at [place] 01 bedtime. [facility] liraglutide 2019-06 Yes inject [facility] (VICTOZA 2-08 under the ity of 2-HOMERO) 0.6 15:46: skin. [place] mg/0.1 mL 01 Medical (18 mg/3 [facility] mL) injection docusate 2019-06 Yes 250mg Take 250 [facility] sodium 250 2-08 mg by ity of mg capsule 15:46: mouth [place] 01 daily. [facility] cetirizine 2019-06 Yes 10mg Take 10 mg [facility] (ZYRTEC) 10 2-08 by mouth ity of mg tablet 15:46: at [place] 01 bedtime. [facility] liraglutide 2019-06 Yes inject [facility] (VICTOZA 2-08 under the ity of 2-HOMERO) 0.6 15:46: skin. [place] mg/0.1 mL 01 Medical (18 mg/3 [facility] mL) injection docusate 2019-06 Yes 250mg Take 250 [facility] sodium 250 2-08 mg by ity of mg capsule 15:46: mouth [place] 01 daily. [facility] cetirizine 2019-06 Yes 10mg Take 10 mg [facility] (ZYRTEC) 10 2-08 by mouth ity of mg tablet 15:46: at [place] 01 bedtime. [facility] docusate 2019-06 Yes 250mg Take 250 [facility] sodium 250 2-08 mg by ity of mg capsule 15:46: mouth [place] 01 daily. [facility] cetirizine 2019-06 Yes 10mg Take 10 mg [facility] (ZYRTEC) 10 2-08 by mouth ity of mg tablet 15:46: at [place] 01 bedtime. [facility] docusate 2019-06 Yes 250mg Take 250 [facility] sodium 250 2-08 mg by ity of mg capsule 15:46: mouth [place] 01 daily. [facility] cetirizine 2019-06 Yes 10mg Take 10 mg [facility] (ZYRTEC) 10 2-08 by mouth ity of mg tablet 15:46: at [place] 01 bedtime. [facility] docusate 2019-06 Yes 250mg Take 250 [facility] sodium 250 2-08 mg by ity of mg capsule 15:46: mouth [place] 01 daily. [facility] cetirizine 2019-06 Yes 10mg Take 10 mg [facility] (ZYRTEC) 10 2-08 by mouth ity of mg tablet 15:46: at [place] 01 bedtime. [facility] docusate 2019-06 Yes 250mg Take 250 [facility] sodium 250 2-08 mg by ity of mg capsule 15:46: mouth [place] 01 daily. [facility] cetirizine 2019-06 Yes 10mg Take 10 mg [facility] (ZYRTEC) 10 2-08 by mouth ity of mg tablet 15:46: at [place] 01 bedtime. [facility] docusate 2019-06 Yes 250mg Take 250 [facility] sodium 250 2-08 mg by ity of mg capsule 15:46: mouth [place] 01 daily. [facility] cetirizine 2019- Yes 10mg Take 10 mg [facility] (ZYRTEC) 10 2-08 by mouth ity of mg tablet 15:46: at [place] 01 bedtime. [facility] docusate 2019- Yes 250mg Take 250 [facility] sodium 250 2-08 mg by ity of mg capsule 15:46: mouth [place] 01 daily. [facility] cetirizine 2019- Yes 10mg Take 10 mg [facility] (ZYRTEC) 10 2-08 by mouth ity of mg tablet 15:46: at [place] 01 bedtime. [facility] docusate 2019- Yes 250mg Take 250 [facility] sodium 250 2-08 mg by ity of mg capsule 15:46: mouth [place] 01 daily. [facility] cetirizine 2019- Yes 10mg Take 10 mg [facility] (ZYRTEC) 10 2-08 by mouth ity of mg tablet 15:46: at [place] 01 bedtime. [facility] docusate 2019- Yes 250mg Take 250 [facility] sodium 250 2-08 mg by ity of mg capsule 15:46: mouth [place] 01 daily. [facility] cetirizine 2019- Yes 10mg Take 10 mg [facility] (ZYRTEC) 10 2-08 by mouth ity of mg tablet 15:46: at [place] 01 bedtime. [facility] docusate 2019- Yes 250mg Take 250 [facility] sodium 250 2-08 mg by ity of mg capsule 15:46: mouth [place] 01 daily. [facility] cetirizine 2019- Yes 10mg Take 10 mg [facility] (ZYRTEC) 10 2-08 by mouth ity of mg tablet 15:46: at [place] 01 bedtime. [facility] docusate 2019- Yes 250mg Take 250 [facility] sodium 250 2-08 mg by ity of mg capsule 15:46: mouth [place] 01 daily. [facility] cetirizine 2019- Yes 10mg Take 10 mg [facility] (ZYRTEC) 10 2-08 by mouth ity of mg tablet 15:46: at [place] 01 bedtime. [facility] docusate 2019- Yes 250mg Take 250 [facility] sodium 250 2-08 mg by ity of mg capsule 15:46: mouth [place] 01 daily. [facility] cetirizine 2020- Yes 10mg Take 10 mg [facility] (ZYRTEC) 10 2-08 by mouth ity of mg tablet 15:46: at [place] 01 bedtime. [facility] docusate 2019- Yes 250mg Take 250 [facility] sodium 250 2-08 mg by ity of mg capsule 15:46: mouth [place] 01 daily. [facility] cetirizine 2019- Yes 10mg Take 10 mg [facility] (ZYRTEC) 10 2-08 by mouth ity of mg tablet 15:46: at [place] 01 bedtime. [facility] docusate 2019- Yes 250mg Take 250 [facility] sodium 250 2-08 mg by ity of mg capsule 15:46: mouth [place] 01 daily. [facility] cetirizine 2019- Yes 10mg Take 10 mg [facility] (ZYRTEC) 10 2-08 by mouth ity of mg tablet 15:46: at [place] 01 bedtime. [facility] docusate 2019- Yes 250mg Take 250 [facility] sodium 250 2-08 mg by ity of mg capsule 15:46: mouth [place] 01 daily. [facility] cetirizine 2019- Yes 10mg Take 10 mg [facility] (ZYRTEC) 10 2-08 by mouth ity of mg tablet 15:46: at [place] 01 bedtime. [facility] docusate 2019- Yes 250mg Take 250 [facility] sodium 250 2-08 mg by ity of mg capsule 15:46: mouth [place] 01 daily. [facility] cetirizine 2019- Yes 10mg Take 10 mg [facility] (ZYRTEC) 10 2-08 by mouth ity of mg tablet 15:46: at [place] 01 bedtime. [facility] docusate 2019- Yes 250mg Take 250 [facility] sodium 250 2-08 mg by ity of mg capsule 15:46: mouth [place] 01 daily. [facility] cetirizine 2019- Yes 10mg Take 10 mg [facility] (ZYRTEC) 10 2-08 by mouth ity of mg tablet 15:46: at [place] 01 bedtime. [facility] docusate 2020- Yes 250mg Take 250 [facility] sodium 250 2-08 mg by ity of mg capsule 15:46: mouth [place] 01 daily. [facility] cetirizine 2020- Yes 10mg Take 10 mg [facility] (ZYRTEC) 10 2-08 by mouth ity of mg tablet 15:46: at [place] 01 bedtime. [facility] docusate 2019- Yes 250mg Take 250 [facility] sodium 250 2-08 mg by ity of mg capsule 15:46: mouth [place] 01 daily. [facility] cetirizine 2019- Yes 10mg Take 10 mg [facility] (ZYRTEC) 10 2-08 by mouth ity of mg tablet 15:46: at [place] 01 bedtime. [facility] docusate 2019- Yes 250mg Take 250 [facility] sodium 250 2-08 mg by ity of mg capsule 15:46: mouth [place] 01 daily. [facility] cetirizine 2019- Yes 10mg Take 10 mg [facility] (ZYRTEC) 10 2-08 by mouth ity of mg tablet 15:46: at [place] 01 bedtime. [facility] docusate 2019- Yes 250mg Take 250 [facility] sodium 250 2-08 mg by ity of mg capsule 15:46: mouth [place] 01 daily. [facility] cetirizine 2019- Yes 10mg Take 10 mg [facility] (ZYRTEC) 10 2-08 by mouth ity of mg tablet 15:46: at [place] 01 bedtime. [facility] docusate 2019- Yes 250mg Take 250 [facility] sodium 250 2-08 mg by ity of mg capsule 15:46: mouth [place] 01 daily. [facility] cetirizine 2019- Yes 10mg Take 10 mg [facility] (ZYRTEC) 10 2-08 by mouth ity of mg tablet 15:46: at [place] 01 bedtime. [facility] docusate 2019- Yes 250mg Take 250 [facility] sodium 250 2-08 mg by ity of mg capsule 15:46: mouth [place] 01 daily. [facility] cetirizine 2020- Yes 10mg Take 10 mg [facility] (ZYRTEC) 10 2-08 by mouth ity of mg tablet 15:46: at [place] 01 bedtime. [facility] docusate 2020- Yes 250mg Take 250 [facility] sodium 250 2-08 mg by ity of mg capsule 15:46: mouth [place] 01 daily. [facility] cetirizine 2019- Yes 10mg Take 10 mg [facility] (ZYRTEC) 10 2-08 by mouth ity of mg tablet 15:46: at [place] 01 bedtime. [facility] docusate 2019-06 Yes 250mg Take 250 [facility] sodium 250 2-08 mg by ity of mg capsule 15:46: mouth [place] 01 daily. [facility] cetirizine 2019-06 Yes 10mg Take 10 mg [facility] (ZYRTEC) 10 2-08 by mouth ity of mg tablet 15:46: at [place] 01 bedtime. [facility] docusate 2019-06 Yes 250mg Take 250 [facility] sodium 250 2-08 mg by ity of mg capsule 15:46: mouth [place] 01 daily. [facility] cetirizine 2019-06 Yes 10mg Take 10 mg [facility] (ZYRTEC) 10 2-08 by mouth ity of mg tablet 15:46: at [place] 01 bedtime. [facility] docusate 2019-06 Yes 250mg Take 250 [facility] sodium 250 2-08 mg by ity of mg capsule 15:46: mouth [place] 01 daily. [facility] cetirizine 2019-06 Yes 10mg Take 10 mg [facility] (ZYRTEC) 10 2-08 by mouth ity of mg tablet 15:46: at [place] 01 bedtime. [facility] docusate 2019-06 Yes 250mg Take 250 [facility] sodium 250 2-08 mg by ity of mg capsule 15:46: mouth [place] 01 daily. [facility] cetirizine 2019-06 Yes 10mg Take 10 mg [facility] (ZYRTEC) 10 2-08 by mouth ity of mg tablet 15:46: at [place] 01 bedtime. [facility] docusate 2019-06 Yes 250mg Take 250 [facility] sodium 250 2-08 mg by ity of mg capsule 15:46: mouth [place] 01 daily. [facility] cetirizine 2019-06 Yes 10mg Take 10 mg [facility] (ZYRTEC) 10 2-08 by mouth ity of mg tablet 15:46: at [place] 01 bedtime. [facility] ALBUTEROL 2019-06- No Inhale. [facility] INHALE 2- 12-08 ity of 15:45: 00:00 [place] 55 :00 [facility] ALBUTEROL 2019-06 2020- No Inhale. [facility] INHALE 2- 12-08 ity of 15:45: 00:00 [place] 55 :00 [facility] cetirizine 2019- Yes 10mg Take 10 mg [facility] (ZYRTEC) 10 2-08 by mouth ity of mg tablet 09:46: at [place] bedtime. [facility] cetirizine 2019- Yes 10mg Take 10 mg [facility] (ZYRTEC) 10 2-08 by mouth ity of mg tablet 09:46: at [place] bedtime. [facility] cetirizine 2019- Yes 10mg Take 10 mg [facility] (ZYRTEC) 10 2-08 by mouth ity of mg tablet 09:46: at [place] bedtime. [facility] cetirizine 2019- Yes 10mg Take 10 mg [facility] (ZYRTEC) 10 2-08 by mouth ity of mg tablet 09:46: at [place] bedtime. [facility] cetirizine 2019- Yes 10mg Take 10 mg [facility] (ZYRTEC) 10 2-08 by mouth ity of mg tablet 09:46: at [place] bedtime. [facility] cefUROXime 2019- Yes [id number] 250mg Take 1 [facility] 250 mg 2-08 tablet by ity of tablet 00:00: mouth 2 [place] (two) Medical times Branch daily. cefUROXime 2019- Yes [id number] 250mg Take 1 [facility] 250 mg 2-08 tablet by ity of tablet 00:00: mouth 2 (two) Medical times Branch daily. cefUROXime 2019- Yes [id number] 250mg Take 1 [facility] 250 mg 2-08 tablet by ity of tablet 00:00: mouth 2 (two) Medical times Branch daily. cefUROXime 2019- Yes [id number] 250mg Take 1 [facility] 250 mg 2-08 tablet by ity of tablet 00:00: mouth 2 (two) Medical times Branch daily. cefUROXime 2020-1 Yes [id number] 250mg Take 1 [facility] 250 mg 2-08 tablet by ity of tablet 00:00: mouth 2 (two) Medical times Branch daily. cefUROXime 2019- Yes [id number] 250mg Take 1 [facility] 250 mg 2-08 tablet by ity of tablet 00:00: mouth 2 [place] (two) Medical times Branch daily. cefUROXime 2020-1 Yes [id number] 250mg Take 1 [facility] 250 mg 2-08 tablet by ity of tablet 00:00: mouth 2 (two) Medical times Branch daily. cefUROXime 2020-1 Yes [id number] 250mg Take 1 [facility] 250 mg 2-08 tablet by ity of tablet 00:00: mouth 2 (two) Medical times Branch daily. cefUROXime 2020-1 Yes [id number] 250mg Take 1 [facility] 250 mg 2-08 tablet by ity of tablet 00:00: mouth 2 (two) Medical times Branch daily. cefUROXime 2020-1 Yes [id number] 250mg Take 1 [facility] 250 mg 2-08 tablet by ity of tablet 00:00: mouth 2 (two) Medical times Branch daily. cefUROXime 2019-1 Yes [id number] 250mg Take 1 [facility] 250 mg 2-08 tablet by ity of tablet 00:00: mouth 2 (two) Medical times Branch daily. cefUROXime 2019-1 Yes [id number] 250mg Take 1 [facility] 250 mg 2-08 tablet by ity of tablet 00:00: mouth (two) Medical times Branch daily. cefUROXime 2019- Yes 250mg Take 1 [facility] 250 mg 2-08 tablet by ity of tablet 00:00: mouth (two) Medical times Branch daily. cefUROXime 2019-1 Yes 250mg Take 1 [facility] 250 mg 2-08 tablet by ity of tablet 00:00: mouth (two) Medical times Branch daily. cefUROXime 2019-1 Yes 250mg Take 1 [facility] 250 mg 2-08 tablet by ity of tablet 00:00: mouth 2 (two) Medical times Branch daily. cefUROXime 2019-1 Yes 250mg Take 1 [facility] 250 mg 2-08 tablet by ity of tablet 00:00: mouth 2 (two) Medical times Branch daily. cefUROXime 2020-1 Yes [id number] 250mg Take 1 [facility] 250 mg 2-08 tablet by ity of tablet 00:00: mouth 2 (two) Medical times Branch daily. cefUROXime 2020-1 Yes [id number] 250mg Take 1 [facility] 250 mg 2-08 tablet by ity of tablet 00:00: mouth 2 (two) Medical times Branch daily. cefUROXime 2020-1 Yes [id number] 250mg Take 1 [facility] 250 mg 2-08 tablet by ity of tablet 00:00: mouth 2 00 (two) Medical times Branch daily. cefUROXime 2019-06 Yes [id number] 250mg Take 1 [facility] 250 mg 2-08 tablet by ity of tablet 00:00: mouth 2 00 (two) Medical times Branch daily. cefUROXime 2019-06 Yes [id number] 250mg Take 1 [facility] 250 mg 2-08 tablet by ity of tablet 00:00: mouth 2 00 (two) Medical times Branch daily. cefUROXime 2019-06 Yes [id number] 250mg Take 1 [facility] 250 mg 2-08 tablet by ity of tablet 00:00: mouth 2 [place] 00 (two) Medical times Branch daily. cefUROXime 2019-06 Yes [id number] 250mg Take 1 [facility] 250 mg 2-08 tablet by ity of tablet 00:00: mouth 2 [place] 00 (two) Medical times Branch daily. cefUROXime 2019-06 Yes [id number] 250mg Take 1 [facility] 250 mg 2-08 tablet by ity of tablet 00:00: mouth 2 [place] 00 (two) Medical times Branch daily. cefUROXime 2019-06 Yes [id number] 250mg Take 1 [facility] 250 mg 2-08 tablet by ity of tablet 00:00: mouth 2 [place] 00 (two) Medical times Branch daily. cefUROXime 2019-06 Yes [id number] 250mg Take 1 [facility] 250 mg 2-08 tablet by ity of tablet 00:00: mouth 2 [place] 00 (two) Medical times Branch daily. cefUROXime 2019-06- No [id number] 250mg Take 1 [facility] 250 mg 2-08 - tablet by ity of tablet 00:00: 00:00 mouth 2 [place] 00 :00 (two) Medical times Branch daily. cefUROXime 2019-06- No [id number] 250mg Take 1 [facility] 250 mg 2-08 -27 tablet by ity of tablet 00:00: 00:00 mouth 2 [place] 00 :00 (two) Medical times Branch daily. CLOPIDOGREL 2019-06 Yes Take 1 [facility] 75 mg 1-30 tablet by ity of tablet 00:00: mouth once [place] 00 daily [facility] CLOPIDOGREL 2019- Yes Take 1 [facility] 75 mg 1-30 tablet by ity of tablet 00:00: mouth once [place] 00 daily [facility] CLOPIDOGREL 2019- Yes Take 1 [facility] 75 mg 1-30 tablet by ity of tablet 00:00: mouth once daily [facility] CLOPIDOGREL 2020- Yes Take 1 [facility] 75 mg 1-30 tablet by ity of tablet 00:00: mouth once daily [facility] CLOPIDOGREL 2020- Yes Take 1 [facility] 75 mg 1-30 tablet by ity of tablet 00:00: mouth once daily [facility] CLOPIDOGREL 2020- Yes Take 1 [facility] 75 mg 1-30 tablet by ity of tablet 00:00: mouth once daily [facility] CLOPIDOGREL 2020- Yes Take 1 [facility] 75 mg 1-30 tablet by ity of tablet 00:00: mouth once daily [facility] CLOPIDOGREL 2020- Yes Take 1 [facility] 75 mg 1-30 tablet by ity of tablet 00:00: mouth once daily [facility] CLOPIDOGREL 2020- Yes Take 1 [facility] 75 mg 1-30 tablet by ity of tablet 00:00: mouth once daily [facility] CLOPIDOGREL 2020- Yes Take 1 [facility] 75 mg 1-30 tablet by ity of tablet 00:00: mouth once daily [facility] CLOPIDOGREL 2020- Yes Take 1 [facility] 75 mg 1-30 tablet by ity of tablet 00:00: mouth once daily [facility] CLOPIDOGREL 2020- Yes Take 1 [facility] 75 mg 1-30 tablet by ity of tablet 00:00: mouth once daily [facility] CLOPIDOGREL 2020- Yes Take 1 [facility] 75 mg 1-30 tablet by ity of tablet 00:00: mouth once daily [facility] CLOPIDOGREL 2020- Yes Take 1 [facility] 75 mg 1-30 tablet by ity of tablet 00:00: mouth once daily [facility] CLOPIDOGREL 2020- Yes Take 1 [facility] 75 mg 1-30 tablet by ity of tablet 00:00: mouth once daily [facility] CLOPIDOGREL 2020- Yes Take 1 [facility] 75 mg 1-30 tablet by ity of tablet 00:00: mouth once daily [facility] CLOPIDOGREL 2020- Yes Take 1 [facility] 75 mg 1-30 tablet by ity of tablet 00:00: mouth once daily [facility] CLOPIDOGREL 2020- Yes Take 1 [facility] 75 mg 1-30 tablet by ity of tablet 00:00: mouth once daily [facility] CLOPIDOGREL 2020- Yes Take 1 [facility] 75 mg 1-30 tablet by ity of tablet 00:00: mouth once [place] daily [facility] CLOPIDOGREL 2020- Yes Take 1 [facility] 75 mg 1-30 tablet by ity of tablet 00:00: mouth once [place] daily [facility] CLOPIDOGREL 2020- Yes Take 1 [facility] 75 mg 1-30 tablet by ity of tablet 00:00: mouth once [place] daily [facility] CLOPIDOGREL 2020- Yes Take 1 [facility] 75 mg 1-30 tablet by ity of tablet 00:00: mouth once [place] daily [facility] CLOPIDOGREL 2020- Yes Take 1 [facility] 75 mg 1-30 tablet by ity of tablet 00:00: mouth once [place] daily [facility] CLOPIDOGREL 2020- Yes Take 1 [facility] 75 mg 1-30 tablet by ity of tablet 00:00: mouth once [place] daily [facility] CLOPIDOGREL 2020- Yes Take 1 [facility] 75 mg 1-30 tablet by ity of tablet 00:00: mouth once [place] daily [facility] CLOPIDOGREL 2020- Yes Take 1 [facility] 75 mg 1-30 tablet by ity of tablet 00:00: mouth once [place] daily [facility] CLOPIDOGREL 2020- Yes Take 1 [facility] 75 mg 1-30 tablet by ity of tablet 00:00: mouth once [place] daily [facility] CLOPIDOGREL 2020- Yes Take 1 [facility] 75 mg 1-30 tablet by ity of tablet 00:00: mouth once [place] daily [facility] CLOPIDOGREL 2020- Yes Take 1 [facility] 75 mg 1-30 tablet by ity of tablet 00:00: mouth once [place] daily [facility] CLOPIDOGREL 2020- Yes Take 1 [facility] 75 mg 1-30 tablet by ity of tablet 00:00: mouth once [place] daily [facility] CLOPIDOGREL 2020-2020- No Take 1 [facility] 75 mg 1-30 02-24 tablet by [facility] tablet 00:00: 00:00 mouth once [place] 00 :00 daily [facility] SPIRIVA 2020 Yes INHALE 2 [facility] RESPIMAT 1-18 SPRAY(S) ity of 2.5 00:00: BY MOUTH [place] mcg/actuati 00 ONCE DAILY [facility] SPIRIVA 2019-06 Yes INHALE 2 [facility] RESPIMAT 1-18 SPRAY(S) ity of 2.5 00:00: BY MOUTH [place] mcg/actuati 00 ONCE DAILY [facility] SPIRIVA 2020- Yes INHALE 2 [facility] RESPIMAT 1-18 SPRAY(S) ity of 2.5 00:00: BY MOUTH [place] mcg/actuati 00 ONCE DAILY [facility] SPIRIVA 2020- Yes INHALE 2 [facility] RESPIMAT 1-18 SPRAY(S) ity of 2.5 00:00: BY MOUTH [place] mcg/actuati 00 ONCE DAILY [facility] SPIRIVA 2019- Yes INHALE 2 [facility] RESPIMAT 1-18 SPRAY(S) ity of 2.5 00:00: BY MOUTH [place] mcg/actuati 00 ONCE DAILY [facility] SPIRIVA 2019-06 Yes INHALE 2 [facility] RESPIMAT 1-18 SPRAY(S) ity of 2.5 00:00: BY MOUTH [place] mcg/actuati 00 ONCE DAILY [facility] SPIRIVA 2019- Yes INHALE 2 [facility] RESPIMAT 1-18 SPRAY(S) ity of 2.5 00:00: BY MOUTH [place] mcg/actuati 00 ONCE DAILY [facility] SPIRIVA 2019-06 Yes INHALE 2 [facility] RESPIMAT 1-18 SPRAY(S) ity of 2.5 00:00: BY MOUTH [place] mcg/actuati 00 ONCE DAILY [facility] SPIRIVA 2020- Yes INHALE 2 [facility] RESPIMAT 1-18 SPRAY(S) ity of 2.5 00:00: BY MOUTH [place] mcg/actuati 00 ONCE DAILY [facility] SPIRIVA 2020- Yes INHALE 2 [facility] RESPIMAT 1-18 SPRAY(S) ity of 2.5 00:00: BY MOUTH [place] mcg/actuati 00 ONCE DAILY [facility] SPIRIVA 2020- Yes INHALE 2 [facility] RESPIMAT 1-18 SPRAY(S) ity of 2.5 00:00: BY MOUTH [place] mcg/actuati 00 ONCE DAILY [facility] SPIRIVA 2020- Yes INHALE 2 [facility] RESPIMAT 1-18 SPRAY(S) ity of 2.5 00:00: BY MOUTH [place] mcg/actuati 00 ONCE DAILY [facility] SPIRIVA 2020- Yes INHALE 2 [facility] RESPIMAT 1-18 SPRAY(S) ity of 2.5 00:00: BY MOUTH [place] mcg/actuati 00 ONCE DAILY [facility] SPIRIVA 2020- Yes INHALE 2 [facility] RESPIMAT 1-18 SPRAY(S) ity of 2.5 00:00: BY MOUTH [place] mcg/actuati 00 ONCE DAILY [facility] SPIRIVA 2020- Yes INHALE 2 [facility] RESPIMAT 1-18 SPRAY(S) ity of 2.5 00:00: BY MOUTH [place] mcg/actuati 00 ONCE DAILY [facility] SPIRIVA 2020- Yes INHALE 2 [facility] RESPIMAT 1-18 SPRAY(S) ity of 2.5 00:00: BY MOUTH [place] mcg/actuati 00 ONCE DAILY [facility] SPIRIVA 2020- Yes INHALE 2 [facility] RESPIMAT 1-18 SPRAY(S) ity of 2.5 00:00: BY MOUTH [place] mcg/actuati 00 ONCE DAILY [facility] SPIRIVA 2020- Yes INHALE 2 [facility] RESPIMAT 1-18 SPRAY(S) ity of 2.5 00:00: BY MOUTH [place] mcg/actuati 00 ONCE DAILY [facility] SPIRIVA 2020- Yes INHALE 2 [facility] RESPIMAT 1-18 SPRAY(S) ity of 2.5 00:00: BY MOUTH [place] mcg/actuati 00 ONCE DAILY [facility] SPIRIVA 2020- Yes INHALE 2 [facility] RESPIMAT 1-18 SPRAY(S) ity of 2.5 00:00: BY MOUTH [place] mcg/actuati 00 ONCE DAILY [facility] SPIRIVA 2020- Yes INHALE 2 [facility] RESPIMAT 1-18 SPRAY(S) ity of 2.5 00:00: BY MOUTH [place] mcg/actuati 00 ONCE DAILY [facility] SPIRIVA 2020- Yes INHALE 2 [facility] RESPIMAT 1-18 SPRAY(S) ity of 2.5 00:00: BY MOUTH [place] mcg/actuati 00 ONCE DAILY [facility] SPIRIVA 2020- Yes INHALE 2 [facility] RESPIMAT 1-18 SPRAY(S) ity of 2.5 00:00: BY MOUTH [place] mcg/actuati 00 ONCE DAILY [facility] SPIRIVA 2020-1 Yes INHALE 2 [facility] RESPIMAT 1-18 SPRAY(S) ity of 2.5 00:00: BY MOUTH [place] mcg/actuati 00 ONCE DAILY [facility] SPIRIVA 2020- Yes INHALE 2 [facility] RESPIMAT 1-18 SPRAY(S) ity of 2.5 00:00: BY MOUTH [place] mcg/actuati 00 ONCE DAILY [facility] SPIRIVA 2020- Yes INHALE 2 [facility] RESPIMAT 1-18 SPRAY(S) ity of 2.5 00:00: BY MOUTH [place] mcg/actuati 00 ONCE DAILY [facility] SPIRIVA 2020- Yes INHALE 2 [facility] RESPIMAT 1-18 SPRAY(S) ity of 2.5 00:00: BY MOUTH [place] mcg/actuati 00 ONCE DAILY [facility] SPIRIVA 2020- Yes INHALE 2 [facility] RESPIMAT 1-18 SPRAY(S) ity of 2.5 00:00: BY MOUTH [place] mcg/actuati 00 ONCE DAILY [facility] SPIRIVA 2020- Yes INHALE 2 [facility] RESPIMAT 1-18 SPRAY(S) ity of 2.5 00:00: BY MOUTH [place] mcg/actuati 00 ONCE DAILY [facility] SPIRIVA 2020- Yes INHALE 2 [facility] RESPIMAT 1-18 SPRAY(S) ity of 2.5 00:00: BY MOUTH [place] mcg/actuati 00 ONCE DAILY [facility] SPIRIVA 2020- Yes INHALE 2 [facility] RESPIMAT 1-18 SPRAY(S) ity of 2.5 00:00: BY MOUTH [place] mcg/actuati 00 ONCE DAILY [facility] SPIRIVA 2020- Yes INHALE 2 [facility] RESPIMAT 1-18 SPRAY(S) ity of 2.5 00:00: BY MOUTH [place] mcg/actuati 00 ONCE DAILY [facility] SPIRIVA 2020-1 Yes INHALE 2 [facility] RESPIMAT 1-18 SPRAY(S) ity of 2.5 00:00: BY MOUTH [place] mcg/actuati 00 ONCE DAILY [facility] SPIRIVA 2020- Yes INHALE 2 [facility] RESPIMAT 1-18 SPRAY(S) ity of 2.5 00:00: BY MOUTH [place] mcg/actuati 00 ONCE DAILY [facility] SPIRIVA 2020- Yes INHALE 2 [facility] RESPIMAT 1-18 SPRAY(S) ity of 2.5 00:00: BY MOUTH [place] mcg/actuati 00 ONCE DAILY [facility] SPIRIVA 2020- Yes INHALE 2 [facility] RESPIMAT 1-18 SPRAY(S) ity of 2.5 00:00: BY MOUTH [place] mcg/actuati 00 ONCE DAILY [facility] SPIRIVA 2019-06 Yes INHALE 2 [facility] RESPIMAT 1-18 SPRAY(S) ity of 2.5 00:00: BY MOUTH [place] mcg/actuati 00 ONCE DAILY [facility] SPIRIVA 2019-06 Yes INHALE 2 [facility] RESPIMAT 1-18 SPRAY(S) ity of 2.5 00:00: BY MOUTH [place] mcg/actuati 00 ONCE DAILY [facility] SPIRIVA 2019-06 Yes INHALE 2 [facility] RESPIMAT 1-18 SPRAY(S) ity of 2.5 00:00: BY MOUTH [place] mcg/actuati 00 ONCE DAILY [facility] on [facility] SPIRIVA 2019- Yes INHALE 2 Univer s RESPIMAT 1-18 SPRAY(S) ity of 2.5 00:00: BY MOUTH [place] mcg/actuati 00 ONCE DAILY [facility] d[facility] SPIRIVA 2020 Yes INHALE 2 [facility]iver [facility] RESPIMAT 1-18 SPRAY(S) ity of 2.5 00:00: BY MOUTH [place] mcg/actuati 00 ONCE DAILY [facility] d[facility] on [place] SPIRIVA 2019-06 Yes INHALE 2 [facility] RESPIMAT 1-18 SPRAY(S) ity of 2.5 00:00: BY MOUTH [place] mcg/actuati 00 ONCE DAILY [facility] dical on [place] SPIRIVA 2020- Yes INHALE 2 [facility] RESPIMAT 1-18 SPRAY(S) ity of 2.5 00:00: BY MOUTH [place] mcg/actuati 00 ONCE DAILY [facility] dical on [place] SPIRIVA 2020- Yes INHALE 2 [facility] RESPIMAT 1-18 SPRAY(S) ity of 2.5 00:00: BY MOUTH [place] mcg/actuati 00 ONCE DAILY [facility] d[facility] on [place] SPIRIVA 2019- Yes INHALE 2 [facility] RESPIMAT 1-18 SPRAY(S) ity of 2.5 00:00: BY MOUTH [place] mcg/actuati 00 ONCE DAILY [facility] d[facility] on [place] SPIRIVA 2019- Yes INHALE 2 [facility] RESPIMAT 1-18 SPRAY(S) ity of 2.5 00:00: BY MOUTH [place] mcg/actuati 00 ONCE DAILY [facility] dical on [place] SPIRIVA 2019-06 Yes INHALE 2 [facility] RESPIMAT 1-18 SPRAY(S) ity of 2.5 00:00: BY MOUTH [place] mcg/actuati 00 ONCE DAILY [facility] dical on [place] SPIRIVA 2019-06- No INHALE 2 Unive rs RESPIMAT 1-18 05-25 SPRAY(S) ity of 2.5 00:00: 00:00 BY MOUTH [place] mcg/actuati 00 :00 ONCE DAILY [facility] [place] Tamsulosin 2020-0 Yes [id number] Take 1 B aylor HCl 0.4 MG 9-11 capsule by [facility] CAPS 00:00: mouth of 00 twice Medicin daily e Tamsulosin 2020-0 2020- No [id number] Take 1 Thierry HCl 0.4 MG 9-11 05-05 capsule by [facility] CAPS 00:00: 00:00 mouth of 00 :00 twice Medicin daily e ASPIRIN 2020-0 Yes 81mg Take 81 mg Univ ers ORAL 9-03 by mouth. ity of 19:30: [address] ASPIRIN 2020-0 Yes 81mg Take 81 mg Univ ers ORAL 9-03 by mouth. ity of 19:30: [address] ASPIRIN 2020-0 Yes 81mg Take 81 mg [facility] ers ORAL 9-03 by mouth. ity of 19:30: [address] ASPIRIN 2020-0 Yes 81mg Take 81 mg [facility] ers ORAL 9-03 by mouth. ity of 19:30: [address] ASPIRIN 2020-0 Yes 81mg Take 81 mg [facility] ers ORAL 9-03 by mouth. ity of 19:30: [address] ASPIRIN 2020-0 Yes 81mg Take 81 mg Univ ers ORAL 9-03 by mouth. ity of 19:30: [address] ASPIRIN 2020-0 Yes 81mg Take 81 mg [facility] ers ORAL 9-03 by mouth. ity of 19:30: [address] ASPIRIN 2020-0 Yes 81mg Take 81 mg [facility] ers ORAL 9-03 by mouth. ity of 19:30: [address] ASPIRIN 2020-0 Yes 81mg Take 81 mg [facility] ers ORAL 9-03 by mouth. ity of 19:30: [address] ASPIRIN 2020-0 Yes 81mg Take 81 mg [facility] ers ORAL 9-03 by mouth. ity of 19:30: [address] ASPIRIN 2020-0 Yes 81mg Take 81 mg Univ ers ORAL 9-03 by mouth. ity of 19:30: [address] ASPIRIN 2020-0 Yes 81mg Take 81 mg [facility] ers ORAL 9-03 by mouth. ity of 19:30: [address] ASPIRIN 2020-0 Yes 81mg Take 81 mg [facility] ers ORAL 9-03 by mouth. ity of 19:30: [address] ASPIRIN 2020-0 Yes 81mg Take 81 mg [facility] ers ORAL 9-03 by mouth. ity of 19:30: [address] ASPIRIN 2020-0 Yes 81mg Take 81 mg Univ ers ORAL 9-03 by mouth. ity of 19:30: [address] finasteride 2020-0 Yes 5mg Take 5 mg U nivers 5 mg tablet 9-03 by mouth ity of 19:30: daily. [address] ASPIRIN 2020-0 Yes 81mg Take 81 mg Univ ers ORAL 9-03 by mouth. ity of 19:30: [address] finasteride 2020-0 Yes 5mg Take 5 mg U nivers 5 mg tablet 9-03 by mouth ity of 19:30: daily. [address] ASPIRIN 2020-0 Yes 81mg Take 81 mg Univ ers ORAL 9-03 by mouth. ity of 19:30: [address] finasteride 2020-0 Yes 5mg Take 5 mg U nivers 5 mg tablet 9-03 by mouth ity of 19:30: daily. [address] ASPIRIN 2020-0 Yes 81mg Take 81 mg Univ ers ORAL 9-03 by mouth. ity of 19:30: [address] finasteride 2020-0 Yes 5mg Take 5 mg U nivers 5 mg tablet 9-03 by mouth ity of 19:30: daily. [address] ASPIRIN 2020-0 Yes 81mg Take 81 mg Univ ers ORAL 9-03 by mouth. ity of 19:30: [address] Branch finasteride 2020-0 Yes 5mg Take 5 mg U nivers 5 mg tablet 9-03 by mouth ity of 19:30: daily. [address] ASPIRIN 2020-0 Yes 81mg Take 81 mg Univ ers ORAL 9-03 by mouth. ity of 19:30: [address] finasteride 2020-0 Yes 5mg Take 5 mg U nivers 5 mg tablet 9-03 by mouth ity of 19:30: daily. [address] ASPIRIN 2020-0 Yes 81mg Take 81 mg Univ ers ORAL 9-03 by mouth. ity of 19:30: [address] finasteride 2020-0 Yes 5mg Take 5 mg U nivers 5 mg tablet 9-03 by mouth ity of 19:30: daily. [address] ASPIRIN 2020-0 Yes 81mg Take 81 mg Univ ers ORAL 9-03 by mouth. ity of 19:30: [address] finasteride 2020-0 Yes 5mg Take 5 mg U nivers 5 mg tablet 9-03 by mouth ity of 19:30: daily. [address] ASPIRIN 2020-0 Yes 81mg Take 81 mg Univ ers ORAL 9-03 by mouth. ity of 19:30: [address] ASPIRIN 2020-0 Yes 81mg Take 81 mg [facility] ers ORAL 9-03 by mouth. ity of 19:30: [address] ASPIRIN 2020-0 Yes 81mg Take 81 mg [facility] ers ORAL 9-03 by mouth. ity of 19:30: [address] Branch ASPIRIN 2020-0 Yes 81mg Take 81 mg Univ ers ORAL 9-03 by mouth. ity of 19:30: [address] Branch ASPIRIN 2020-0 Yes 81mg Take 81 mg [facility] ers ORAL 9-03 by mouth. ity of 19:30: [address] ASPIRIN 2020-0 Yes 81mg Take 81 mg [facility] ers ORAL 9-03 by mouth. ity of 19:30: [address] ASPIRIN 2020-0 Yes 81mg Take 81 mg [facility] ers ORAL 9-03 by mouth. ity of 19:30: [address] ASPIRIN 2020-0 Yes 81mg Take 81 mg [facility] ers ORAL 9-03 by mouth. ity of 19:30: [address] ASPIRIN 2020-0 Yes 81mg Take 81 mg [facility] ers ORAL 9-03 by mouth. ity of 19:30: [address] Branch ASPIRIN 2020-0 Yes 81mg Take 81 mg [facility] ers ORAL 9-03 by mouth. ity of 19:30: [address] ASPIRIN 2020-0 Yes 81mg Take 81 mg [facility] ers ORAL 9-03 by mouth. ity of 19:30: [address] ASPIRIN 2020-0 Yes 81mg Take 81 mg [facility] ers ORAL 9-03 by mouth. ity of 19:30: [address] ASPIRIN 2020-0 Yes 81mg Take 81 mg [facility] ers ORAL 9-03 by mouth. ity of 19:30: [address] ASPIRIN 2020-0 Yes 81mg Take 81 mg [facility] ers ORAL 9-03 by mouth. ity of 19:30: [address] ASPIRIN 2020-0 Yes 81mg Take 81 mg [facility] ers ORAL 9-03 by mouth. ity of 19:30: [address] ASPIRIN 2020-0 Yes 81mg Take 81 mg [facility] ers ORAL 9-03 by mouth. ity of 19:30: [address] ASPIRIN 2020-0 Yes 81mg Take 81 mg [facility] ers ORAL 9-03 by mouth. ity of 19:30: [address] ASPIRIN 2020-0 Yes 81mg Take 81 mg [facility] ers ORAL 9-03 by mouth. ity of 19:30: [address] ASPIRIN 2020-0 Yes 81mg Take 81 mg [facility] ers ORAL 9-03 by mouth. ity of 19:30: [address] ASPIRIN 2020-0 Yes 81mg Take 81 mg [facility] ers ORAL 9-03 by mouth. ity of 19:30: [address] Branch ASPIRIN 2020-0 Yes 81mg Take 81 mg [facility] ers ORAL 9-03 by mouth. ity of 19:30: [address] ASPIRIN 2020-0 Yes 81mg Take 81 mg [facility] ers ORAL 9-03 by mouth. ity of 19:30: [address] ASPIRIN 2020-0 Yes 81mg Take 81 mg [facility] ers ORAL 9-03 by mouth. ity of 19:30: [address] ASPIRIN 2020-0 Yes 81mg Take 81 mg [facility] ers ORAL 9-03 by mouth. ity of 19:30: [address] ASPIRIN 2020-0 Yes 81mg Take 81 mg [facility] ers ORAL 9-03 by mouth. ity of 19:30: [place] [address] [facility] Branch ASPIRIN 2020-0 Yes 81mg Take 81 mg [facility] ers ORAL 02-03 by mouth. ity of 19:30: [place] [address] [facility] Branch ASPIRIN 2020-0 Yes 81mg Take 81 mg [facility] ers ORAL 02-03 by mouth. ity of 19:30: [address] Branch ASPIRIN 2020-0 Yes 81mg Take 81 mg [facility] ers ORAL 02-03 by mouth. ity of 19:30: [place] [address] Medical Branch ASPIRIN 2020-0 Yes 81mg Take 81 mg [facility] ers ORAL 02-03 by mouth. ity of 19:30: [address] Branch finasteride 2020-0 2020- No 5mg Take 5 mg [facility] 5 mg tablet 02-03 by mouth ity of 19:30: 00:00 daily. [place] 30 :00 Medical [facility] MULTIVITAMI 2020-0 2020- No Take 1 Uni vers N ORAL 02-03 TAB-CAP/M2 ity of 19:29: 00:00 by mouth 2 [place] 06 :00 (two) Medical times Branch daily. CLOPIDOGREL 2020-0 Yes Take 1 Univ ers 75 mg 8-25 tablet by ity of tablet 00:00: mouth once [place] [address] daily Medical Branch CLOPIDOGREL 2020-0 Yes Take 1 Univ ers 75 mg 8-25 tablet by ity of tablet 00:00: mouth once [place] [address] daily Medical Branch CLOPIDOGREL 2020-0 Yes Take 1 [facility] ers 75 mg 8-25 tablet by ity of tablet 00:00: mouth once [place] [address] daily Medical Branch CLOPIDOGREL 2020-0 Yes Take 1 [facility] ers 75 mg 8-25 tablet by ity of tablet 00:00: mouth once [place] daily Medical Branch CLOPIDOGREL 2020-0 2020- No Take 1 Uni vers 75 mg 8-25 11-30 tablet by ity of tablet 00:00: 00:00 [place] :[place] daily [facility] CLOPIDOGREL 2020-0 Yes Take 1 Univ ers 75 mg 5-04 tablet by ity of tablet 00:00: mouth once [place] daily Medical Branch CLOPIDOGREL 2020-0 Yes Take 1 [facility] ers 75 mg 5-04 tablet by ity of tablet 00:00: mouth once [place] [address] daily Medical Branch CLOPIDOGREL 2020-0 2020- No Take 1 Uni vers 75 mg 5-04 08-25 tablet by ity of tablet 00:00: 00:00 mouth [place] 00 :[place] daily [facility] ASPIRIN 2020-0 Yes 81mg Take 81 mg [facility] ORAL 3-13 by mouth. ity of 20:33: [place] [address] Medical Branch finasteride 2020-0 Yes 5mg Take 5 mg U nivers 5 mg tablet 3-13 by mouth ity of 20:33: daily. [place] [address] Medical Branch docusate 2020-0 Yes 250mg Take 250 Univ ers sodium 250 3-13 mg by ity of mg capsule 20:33: mouth [place] [address] daily. Medical Branch ALBUTEROL 2020-0 Yes Inhale. Unive rs INHALE 3-13 ity of 20:33: [place] [address] Medical Branch cetirizine 2020-0 Yes 10mg Take 10 mg U nivers (ZYRTEC) 10 3-13 by mouth ity of mg tablet 20:33: at [place] [address] bedtime. Medical Branch MULTIVITAMI 2020-0 Yes Take 1 Univ ers N ORAL 3-13 TAB-CAP/M2 ity of 20:33: by mouth 2 [place] [address] (two) Medical times Branch daily. finasteride 2020-0 Yes 5mg Take 5 mg U nivers 5 mg tablet 3-13 by mouth ity of 20:33: daily. [place] [address] Medical Branch liraglutide 2020-0 Yes inject Univ ers (VICTOZA 3-13 under the ity of 2-HOMERO) 0.6 20:33: skin. [place] mg/0.1 mL Medical (18 mg/3 Branch mL) injection ASPIRIN 2020-0 Yes 81mg Take 81 mg [facility] ers ORAL 3-13 by mouth. ity of 20:33: [place] [address] Medical Branch finasteride 2020-0 Yes 5mg Take 5 mg U nivers 5 mg tablet 3-13 by mouth ity of 20:33: daily. [place] [address] Medical Branch docusate 2020-0 Yes 250mg Take 250 Univ ers sodium 250 3-13 mg by ity of mg capsule 20:33: mouth [place] [address] daily. Medical Branch ALBUTEROL 2020-0 Yes Inhale. Unive rs INHALE 3-13 ity of 20:33: [place] [address] Medical Branch cetirizine 2020-0 Yes 10mg Take 10 mg U nivers (ZYRTEC) 10 3-13 by mouth ity of mg tablet 20:33: at [place] [address] bedtime. Medical Branch MULTIVITAMI 2020-0 Yes Take 1 Univ ers N ORAL 3-13 TAB-CAP/M2 ity of 20:33: by mouth 2 [place] [address] (two) Medical times Branch daily. finasteride 2020-0 Yes 5mg Take 5 mg U nivers 5 mg tablet 3-13 by mouth ity of 20:33: daily. [place] [address] Medical Branch liraglutide 2020-0 Yes inject Univ ers (VICTOZA 3-13 under the ity of 2-HOMERO) 0.6 20:33: skin. [place] mg/0.1 mL 48 Medical (18 mg/3 Branch mL) injection ASPIRIN 2020-0 Yes 81mg Take 81 mg [facility] ers ORAL 3-13 by mouth. ity of 20:33: [place] [address] Medical Branch finasteride 2020-0 Yes 5mg Take 5 mg U nivers 5 mg tablet 3-13 by mouth ity of 20:33: daily. [place] [address] Medical Branch docusate 2020-0 Yes 250mg Take 250 Univ ers sodium 250 3-13 mg by ity of mg capsule 20:33: mouth [place] [address] daily. Medical Branch ALBUTEROL 2020-0 Yes Inhale. Unive rs INHALE 3-13 ity of 20:33: [place] [address] Medical Branch cetirizine 2020-0 Yes 10mg Take 10 mg U nivers (ZYRTEC) 10 3-13 by mouth ity of mg tablet 20:33: at [place] [address] bedtime. Medical Branch MULTIVITAMI 2020-0 Yes Take 1 Univ ers N ORAL 3-13 TAB-CAP/M2 ity of 20:33: by mouth 2 [place] [address] (two) Medical times Branch daily. finasteride 2020-0 Yes 5mg Take 5 mg U nivers 5 mg tablet 3-13 by mouth ity of 20:33: daily. [place] [address] Medical Branch liraglutide 2020-0 Yes inject Univ ers (VICTOZA 3-13 under the ity of 2-HOMERO) 0.6 20:33: skin. [place] mg/0.1 mL 48 Medical (18 mg/3 Branch mL) injection ASPIRIN 2020-0 Yes 81mg Take 81 mg [facility] ers ORAL 3-13 by mouth. ity of 20:33: [place] [address] Medical Branch finasteride 2020-0 Yes 5mg Take 5 mg U nivers 5 mg tablet 3-13 by mouth ity of 20:33: daily. [place] [address] Medical Branch docusate 2020-0 Yes 250mg Take 250 Univ ers sodium 250 3-13 mg by ity of mg capsule 20:33: mouth [place] [address] daily. Medical Branch ALBUTEROL 2020-0 Yes Inhale. Unive rs INHALE 3-13 ity of 20:33: [place] [address] Medical Branch cetirizine 2020-0 Yes 10mg Take 10 mg U nivers (ZYRTEC) 10 3-13 by mouth ity of mg tablet 20:33: at [place] [address] bedtime. Medical Branch MULTIVITAMI 2020-0 Yes Take 1 Univ ers N ORAL 3-13 TAB-CAP/M2 ity of 20:33: by mouth 2 [place] [address] (two) Medical times Branch daily. finasteride 2020-0 Yes 5mg Take 5 mg U nivers 5 mg tablet 3-13 by mouth ity of 20:33: daily. [place] [address] Medical Branch liraglutide 2020-0 Yes inject Univ ers (VICTOZA 3-13 under the ity of 2-HOMERO) 0.6 20:33: skin. [place] mg/0.1 mL Medical (18 mg/3 Branch mL) injection ASPIRIN 2020-0 Yes 81mg Take 81 mg [facility] ers ORAL 3-13 by mouth. ity of 20:33: [place] [address] Medical Branch finasteride 2020-0 Yes 5mg Take 5 mg U nivers 5 mg tablet 3-13 by mouth ity of 20:33: daily. [place] [address] Medical Branch docusate 2020-0 Yes 250mg Take 250 Univ ers sodium 250 3-13 mg by ity of mg capsule 20:33: mouth [place] [address] daily. Medical Branch ALBUTEROL 2020-0 Yes Inhale. Unive rs INHALE 3-13 ity of 20:33: [place] [address] Medical Branch cetirizine 2020-0 Yes 10mg Take 10 mg U nivers (ZYRTEC) 10 3-13 by mouth ity of mg tablet 20:33: at [place] [address] bedtime. Medical Branch MULTIVITAMI 2020-0 Yes Take 1 Univ ers N ORAL 3-13 TAB-CAP/M2 ity of 20:33: by mouth 2 [place] [address] (two) Medical times Branch daily. finasteride 2020-0 Yes 5mg Take 5 mg U nivers 5 mg tablet 3-13 by mouth ity of 20:33: daily. [place] [address] Medical Branch liraglutide 2020-0 Yes inject Univ ers (VICTOZA 3-13 under the ity of 2-HOMERO) 0.6 20:33: skin. [place] mg/0.1 mL 48 Medical (18 mg/3 Branch mL) injection ASPIRIN 2020-0 Yes 81mg Take 81 mg [facility] ers ORAL 3-13 by mouth. ity of 20:33: [place] [address] Medical Branch finasteride 2020-0 Yes 5mg Take 5 mg U nivers 5 mg tablet 3-13 by mouth ity of 20:33: daily. [place] [address] Medical Branch docusate 2020-0 Yes 250mg Take 250 Univ ers sodium 250 3-13 mg by ity of mg capsule 20:33: mouth [place] [address] daily. Medical Branch ALBUTEROL 2020-0 Yes Inhale. Unive rs INHALE 3-13 ity of 20:33: [place] [address] Medical Branch cetirizine 2020-0 Yes 10mg Take 10 mg U nivers (ZYRTEC) 10 3-13 by mouth ity of mg tablet 20:33: at [place] [address] bedtime. Medical Branch MULTIVITAMI 2020-0 Yes Take 1 Univ ers N ORAL 3-13 TAB-CAP/M2 ity of 20:33: by mouth 2 [place] [address] (two) Medical times Branch daily. finasteride 2020-0 Yes 5mg Take 5 mg U nivers 5 mg tablet 3-13 by mouth ity of 20:33: daily. [place] [address] Medical Branch liraglutide 2020-0 Yes inject Univ ers (VICTOZA 3-13 under the ity of 2-HOMERO) 0.6 20:33: skin. [place] mg/0.1 mL 48 Medical (18 mg/3 Branch mL) injection ASPIRIN 2020-0 Yes 81mg Take 81 mg [facility] ers ORAL 3-13 by mouth. ity of 20:33: [place] [address] Medical Branch finasteride 2020-0 Yes 5mg Take 5 mg U nivers 5 mg tablet 3-13 by mouth ity of 20:33: daily. [place] [address] Medical Branch docusate 2020-0 Yes 250mg Take 250 Univ ers sodium 250 3-13 mg by ity of mg capsule 20:33: mouth [place] [address] daily. Medical Branch ALBUTEROL 2020-0 Yes Inhale. Unive rs INHALE 3-13 ity of 20:33: [place] [address] Medical Branch cetirizine 2020-0 Yes 10mg Take 10 mg U nivers (ZYRTEC) 10 3-13 by mouth ity of mg tablet 20:33: at [place] [address] bedtime. Medical Branch MULTIVITAMI 2020-0 Yes Take 1 Univ ers N ORAL 3-13 TAB-CAP/M2 ity of 20:33: by mouth 2 [place] 48 (two) Medical times Branch daily. finasteride 2020-0 Yes 5mg Take 5 mg U nivers 5 mg tablet 3-13 by mouth ity of 20:33: daily. [place] [facility] liraglutide 2020-0 Yes inject Univ ers (VICTOZA 3-13 under the ity of 2-HOMERO) 0.6 20:33: skin. [place] mg/0.1 mL 48 Medical (18 mg/3 Branch mL) injection docusate 2020-0 Yes 250mg Take 250 Univ ers sodium 250 3-13 mg by ity of mg capsule 20:33: mouth [place] 48 daily. Medical Branch ALBUTEROL 2020-0 Yes Inhale. Unive rs INHALE 3-13 ity of 20:33: [place] [facility] cetirizine 2020-0 Yes 10mg Take 10 mg U nivers (ZYRTEC) 10 3-13 by mouth ity of mg tablet 20:33: at [place] [address] bedtime. Medical Branch liraglutide 2020-0 Yes inject Univ ers (VICTOZA 3-13 under the ity of 2-HOMERO) 0.6 20:33: skin. [place] mg/0.1 mL 48 Medical (18 mg/3 Branch mL) injection docusate 2020-0 Yes 250mg Take 250 Univ ers sodium 250 3-13 mg by ity of mg capsule 20:33: mouth [place] 48 daily. Medical Branch ALBUTEROL 2020-0 Yes Inhale. Unive rs INHALE 3-13 ity of 20:33: [place] [facility] cetirizine 2020-0 Yes 10mg Take 10 mg U nivers (ZYRTEC) 10 3-13 by mouth ity of mg tablet 20:33: at [place] [address] bedtime. Medical Branch liraglutide 2020-0 Yes inject Univ ers (VICTOZA 3-13 under the ity of 2-HOMERO) 0.6 20:33: skin. [place] mg/0.1 mL 48 Medical (18 mg/3 Branch mL) injection docusate 2020-0 Yes 250mg Take 250 Univ ers sodium 250 3-13 mg by ity of mg capsule 20:33: mouth [place] 48 daily. Medical Branch ALBUTEROL 2020-0 Yes Inhale. Unive rs INHALE 3-13 ity of 20:33: [place] [address] Medical Branch cetirizine 2020-0 Yes 10mg Take 10 mg U nivers (ZYRTEC) 10 3-13 by mouth ity of mg tablet 20:33: at [place] [address] bedtime. Medical Branch liraglutide 2020-0 Yes inject Univ ers (VICTOZA 3-13 under the ity of 2-HOMERO) 0.6 20:33: skin. [place] mg/0.1 mL 48 Medical (18 mg/3 Branch mL) injection docusate 2020-0 Yes 250mg Take 250 Univ ers sodium 250 3-13 mg by ity of mg capsule 20:33: mouth [place] 48 daily. Medical Branch ALBUTEROL 2019-0 Yes Inhale. Unive rs INHALE 3-13 ity of 20:33: [place] [address] Medical Branch cetirizine 2019-0 Yes 10mg Take 10 mg U nivers (ZYRTEC) 10 3-13 by mouth ity of mg tablet 20:33: at [place] [address] bedtime. Medical Branch liraglutide 2019-0 Yes inject Univ ers (VICTOZA 3-13 under the ity of 2-HOMERO) 0.6 20:33: skin. [place] mg/0.1 mL 48 Medical (18 mg/3 Branch mL) injection ASPIRIN 2019-0 Yes 81mg Take 81 mg Univ ers ORAL 2-26 by mouth. ity of 19:19: [place] [address] Medical Branch finasteride 2019-0 Yes 5mg Take 5 mg U nivers 5 mg tablet 2-26 by mouth ity of 19:19: daily. [place] [address] Medical Branch docusate 2020-0 Yes 250mg Take 250 Univ ers sodium 250 2-26 mg by ity of mg capsule 19:19: mouth [place] 24 daily. Medical Branch ALBUTEROL 2020-0 Yes Inhale. Unive rs INHALE 2-26 ity of 19:19: [place] [address] Medical Branch cetirizine 2019-0 Yes 10mg Take 10 mg U nivers (ZYRTEC) 10 2-26 by mouth ity of mg tablet 19:19: at [place] [address] bedtime. Medical Branch MULTIVITAMI 2020-0 Yes Take 1 Univ ers N ORAL 2-26 TAB-CAP/M2 ity of 19:19: by mouth 2 [place] 24 (two) Medical times Branch daily. finasteride 2020-0 Yes 5mg Take 5 mg U nivers 5 mg tablet 07-29 by mouth ity of 19:19: daily. [place] [address] Medical Branch liraglutide 2020-0 Yes inject Univ ers (VICTOZA 07-29 under the ity of 2-HOMERO) 0.6 19:19: skin. [place] mg/0.1 mL 24 Medical (18 mg/3 Branch mL) injection neomycin-po 2020-0 Yes PRN, Univer s lymyxin-dex 07-29 Starting ity of amethasone 18:42: Wed [place] (MAXITROL) 00 07/29/19 at [facility] ical 3.5 1242, Branch mg/g-10,000 Until unit/g-0.1 Discontinu % ed, ophthalmic Routine, ointment Intra-op gentamicin 2020-0 Yes PRN, Univers injection 07-29 Starting ity of 18:42: Wed [place] 00 07/29/19 at [facility] 1242, Branch Until Discontinu ed, ANA, Intra-op dexamethaso 2020-0 Yes PRN, Univer s ne 07-29 Starting ity of (DECADRON 18:42: Wed [place] PHOSPHATE) 00 07/29/19 at [facility] ical injection 1242, Branch Until Discontinu ed, Routine, Intra-op sodium 2020-0 Yes PRN, Univers chloride 07-29 Starting ity of (NS) 18:41: Wed [place] injection 07/29/19 at [facility] 1241, Branch Until Discontinu ed, Routine, Intra-op DUOVISC 2020-0 Yes PRN, Univers (DUOVISC 07-29 Starting ity of VISCO 18:37: Wed [place] ELASTIC) 3 00 07/29/19 at [facility] ical %-4 %(0.5 1237, Branch mL) 1 % Until (0.55 mL) Discontinu intraocular ed, injection Routine, Intra-op carbachoL 2020-0 Yes PRN, Univers (MIOSTAT) 07-29 Starting ity of 0.01 % 18:35: Wed [place] [facility]ocular [facility] Branch Until Discontinu ed, Routine, Intra-op ceFAZolin 2020-0 Yes PRN, Univers (ANCEF) - Starting ity of injection 18:33: Wed [place] 00 07/29/19 at [facility] 1233, [place] Until Discontinu ed, ANA, Intra-op balanced 2020-0 Yes PRN, Univers salt irrig - Starting ity o f soln comb1 18:32: Sat [place] (BSS PLUS) 00 07/29/19 at [facility] ophthalmic 1232, [place] solution Until 500 mL bag Discontinu ed, Routine, Intra-op EPINEPHrine 2020-0 Yes PRN, Univer s 1:1,000 (1 07-29 Starting ity o f mg/mL) 18:31: Sat [place] (ADRENALIN) 07[facility]29/[facility], [place] Until Discontinu ed, Routine, Intra-op mydriatic 2020-0 2020- No .5mL 0.5 mL, Univ ers #5 07-29 Left Eye, ity of ophthalmic 18:30: 17:19 ONCE, 1 [place] as solution 00 :00 dose, Sat Medica l 0.5 mL 07/29/19 at [place] syringe 1230, Routine balanced 2020-0 Yes PRN, Univers salt soln 07-29 Starting ity of no.2 irrig. 18:29: Sat [place] (BSS) 07/29/19 at [facility] ophthalmic 1229, [place] solution Until Discontinu ed, Routine, Intra-op water for 2020-0 Yes PRN, Univers irrigation 07-29 Starting ity o f irrigation 18:24: Sat [place] solution 07/29/19 at [facility] al 1224, [place] Until Discontinu ed, Routine, Intra-op lidocaine-e 2020-0 Yes PRN, Univer s pinephrine 07-29 Starting ity o f (XYLOCAINE 18:18: Sat [facility]/EPINEPHRI 07/29/[facility] 2 1218, Branch %-1:200,000 Until injection Discontinu ed, Routine, Intra-op Hyaluronida 2020-0 Yes PRN, Univer s se, Human 07-29 Starting ity of Recomb. 18:18: Sat (HYLENEX) 07/29/19 at [facility] injection 1218, [place] Until Discontinu ed, Routine, Intra-op bupivacaine 2020-0 Yes PRN, Univer s (preserv 07-29 Starting ity of free) 18:18: Sat (SENSORCAIN 00 07/29/19 at [facility]) 0.75 1218, Branch % (7.5 Until mg/mL) Discontinu injection ed, Routine, Intra-op lactated 2020-0 2020- No 500mL at 20 Univer s ringers IV 07-29 02-26 mL/hr, 500 it y of infusion 17:15: 17:16 mL, IV [place] 500 mL 00 :00 Infusion, Medical ONCE, 1 Branch dose, 07/29/19 at 1115, Routine, [facility] Pre-op clopidogreL 2020-0 Yes 75mg Take 1 Univ ers 75 mg 2-03 tablet by ity of tablet 00:00: mouth [place] 00 daily. Medical Branch clopidogreL 2020-0 Yes 75mg Take 1 Univ ers 75 mg 2-03 tablet by ity of tablet 00:00: mouth [place] 00 daily. Medical Branch clopidogreL 2020-0 Yes 75mg Take 1 Univ ers 75 mg 2-03 tablet by ity of tablet 00:00: mouth [place] 00 daily. Medical Branch clopidogreL 2020-0 Yes 75mg Take 1 Univ ers 75 mg 2-03 tablet by ity of tablet 00:00: mouth [place] 00 daily. Medical Branch clopidogreL 2020-0 Yes 75mg Take 1 Univ ers 75 mg 2-03 tablet by ity of tablet 00:00: mouth [place] 00 daily. Medical Branch clopidogreL 2020-0 Yes 75mg Take 1 Univ ers 75 mg 2-03 tablet by ity of tablet 00:00: mouth [place] 00 daily. Medical Branch clopidogreL 2020-0 Yes 75mg Take 1 Univ ers 75 mg 2-03 tablet by ity of tablet 00:00: mouth [place] 00 daily. Medical Branch clopidogreL 2020-0 2020- No 75mg Take 1 Uni vers 75 mg 2-03 05-04 tablet by ity of tablet 00:00: 00:00 mouth [place] 00 :00 daily. Medical Branch rosuvastati 2020-0 Yes 5mg Take 5 mg B aylor n (CRESTOR) 1-24 by mouth Melonie ege 5 MG tablet 16:49: daily. of 36 Medicin e Probiotic 2020-0 Yes [id number] Take by Thierry Product 1-24 mouth. College (PROBIOTIC 16:49: of ADVANCED 36 Medicin OR) e aspirin EC 2020-0 Yes [id number] 81mg Take 81 mg [facility] 81 MG TBEC -24 by mouth [facility] 16:49: two times of 36 daily. Medicin e cetirizine, 2020-0 Yes [id number] 10mg Take 10 mg [facility] ZYRTEC, 10 1-24 by mouth. Melonie ege MG tablet 16:49: of 36 Medicin e clopidogrel 2019-0 Yes [id number] 75mg Take 75 mg [facility] (PLAVIX) 75 1-24 by mouth. [facility] MG tablet 16:49: of 36 Medicin e Oxymetazoli 2019-0 Yes by Nasal Ba [facility] ne HCl 1-24 route. [place] (AFRIN 12 16:49: uses of HOUR NA) 36 medication Medic in every day e albuterol Yes [id number] 2{puff} Inhale 2 [facility] 90 1-17 Puffs ity of mcg/actuati 00:00: every 6 [place] as on inhaler 00 (six) Medical hours as Branch needed for Wheezing or Shortness of Breath. albuterol Yes [id number] 2{puff} Inhale 2 [facility] 90 1-17 Puffs ity of mcg/actuati 00:00: every 6 [place] as on inhaler 00 (six) Medical hours as Branch needed for Wheezing or Shortness of Breath. albuterol Yes [id number] 2{puff} Inhale 2 [facility] 90 1-17 Puffs ity of mcg/actuati 00:00: every 6 [place] as on inhaler 00 (six) Medical hours as Branch needed for Wheezing or Shortness of Breath. albuterol Yes [id number] 2{puff} Inhale 2 [facility] 90 1-17 Puffs ity of mcg/actuati 00:00: every 6 [place] as on inhaler 00 (six) Medical hours as Branch needed for Wheezing or Shortness of Breath. albuterol Yes [id number] 2{puff} Inhale 2 [facility] 90 1-17 Puffs ity of mcg/actuati 00:00: every 6 [place] as on inhaler 00 (six) Medical hours as Branch needed for Wheezing or Shortness of Breath. albuterol Yes [id number] 2{puff} Inhale 2 [facility] 90 1-17 Puffs ity of mcg/actuati 00:00: every 6 [place] as on inhaler 00 (six) Medical hours as Branch needed for Wheezing or Shortness of Breath. albuterol Yes [id number] 2{puff} Inhale 2 [facility] 90 1-17 Puffs ity of mcg/actuati 00:00: every 6 [place] as on inhaler 00 (six) Medical hours as Branch needed for Wheezing or Shortness of Breath. albuterol 2020-0 Yes [id number] 2{puff} Inhale 2 [facility] 90 1-17 Puffs ity of mcg/actuati 00:00: every 6 [place] as on inhaler 00 (six) Medical hours as Branch needed for Wheezing or Shortness of Breath. albuterol 2020-0 Yes [id number] 2{puff} Inhale 2 [facility] 90 1-17 Puffs ity of mcg/actuati 00:00: every 6 [place] as on inhaler 00 (six) Medical hours as Branch needed for Wheezing or Shortness of Breath. albuterol 2019-0 Yes [id number] 2{puff} Inhale 2 [facility] 90 1-17 Puffs ity of mcg/actuati 00:00: every 6 [place] as on inhaler 00 (six) Medical hours as Branch needed for Wheezing or Shortness of Breath. albuterol 2019-0 Yes [id number] 2{puff} Inhale 2 [facility] 90 1-17 Puffs ity of mcg/actuati 00:00: every 6 [place] as on inhaler 00 (six) Medical hours as Branch needed for Wheezing or Shortness of Breath. albuterol 2020-0 Yes [id number] 2{puff} Inhale 2 [facility] 90 1-17 Puffs ity of mcg/actuati 00:00: every 6 [place] as on inhaler 00 (six) Medical hours as Branch needed for Wheezing or Shortness of Breath. albuterol 2020-0 Yes [id number] 2{puff} Inhale 2 [facility] 90 1-17 Puffs ity of mcg/actuati 00:00: every 6 [place] as on inhaler 00 (six) Medical hours as Branch needed for Wheezing or Shortness of Breath. albuterol 2020-0 Yes [id number] 2{puff} Inhale 2 [facility] 90 1-17 Puffs ity of mcg/actuati 00:00: every 6 [place] as on inhaler 00 (six) Medical hours as Branch needed for Wheezing or Shortness of Breath. albuterol 2020-0 Yes [id number] 2{puff} Inhale 2 [facility] 90 1-17 Puffs ity of mcg/actuati 00:00: every 6 [place] as on inhaler 00 (six) Medical hours as Branch needed for Wheezing or Shortness of Breath. albuterol 2020-0 Yes [id number] 2{puff} Inhale 2 [facility] 90 1-17 Puffs ity of mcg/actuati 00:00: every 6 [place] as on inhaler 00 (six) Medical hours as Branch needed for Wheezing or Shortness of Breath. albuterol 2020-0 Yes [id number] 2{puff} Inhale 2 [facility] 90 1-17 Puffs ity of mcg/actuati 00:00: every 6 [place] as on inhaler 00 (six) Medical hours as Branch needed for Wheezing or Shortness of Breath. albuterol 2020-0 Yes [id number] 2{puff} Inhale 2 [facility] 90 1-17 Puffs ity of mcg/actuati 00:00: every 6 [place] as on inhaler 00 (six) Medical hours as Branch needed for Wheezing or Shortness of Breath. albuterol 2020-0 Yes [id number] 2{puff} Inhale 2 [facility] 90 1-17 Puffs ity of mcg/actuati 00:00: every 6 [place] as on inhaler 00 (six) Medical hours as Branch needed for Wheezing or Shortness of Breath. albuterol 2020-0 Yes [id number] 2{puff} Inhale 2 [facility] 90 1-17 Puffs ity of mcg/actuati 00:00: every 6 [place] as on inhaler 00 (six) Medical hours as Branch needed for Wheezing or Shortness of Breath. albuterol 2020-0 Yes [id number] 2{puff} Inhale 2 [facility] 90 1-17 Puffs ity of mcg/actuati 00:00: every 6 [place] as on inhaler 00 (six) Medical hours as Branch needed for Wheezing or Shortness of Breath. albuterol 2020-0 Yes [id number] 2{puff} Inhale 2 [facility] 90 1-17 Puffs ity of mcg/actuati 00:00: every 6 [place] as on inhaler 00 (six) Medical hours as Branch needed for Wheezing or Shortness of Breath. albuterol 2020-0 Yes [id number] 2{puff} Inhale 2 [facility] 90 1-17 Puffs ity of mcg/actuati 00:00: every 6 [place] as on inhaler 00 (six) Medical hours as Branch needed for Wheezing or Shortness of Breath. albuterol 2020-0 Yes [id number] 2{puff} Inhale 2 [facility] 90 1-17 Puffs ity of mcg/actuati 00:00: every 6 [place] as on inhaler 00 (six) Medical hours as Branch needed for Wheezing or Shortness of Breath. albuterol 2020-0 Yes [id number] 2{puff} Inhale 2 [facility] 90 1-17 Puffs ity of mcg/actuati 00:00: every 6 [place] as on inhaler 00 (six) Medical hours as Branch needed for Wheezing or Shortness of Breath. albuterol 2020-0 Yes [id number] 2{puff} Inhale 2 [facility] 90 1-17 Puffs ity of mcg/actuati 00:00: every 6 [place] as on inhaler 00 (six) Medical hours as Branch needed for Wheezing or Shortness of Breath. albuterol 2020-0 Yes [id number] 2{puff} Inhale 2 [facility] 90 1-17 Puffs ity of mcg/actuati 00:00: every 6 [place] as on inhaler 00 (six) Medical hours as Branch needed for Wheezing or Shortness of Breath. albuterol 2020-0 Yes [id number] 2{puff} Inhale 2 [facility] 90 1-17 Puffs ity of mcg/actuati 00:00: every 6 [place] as on inhaler 00 (six) Medical hours as Branch needed for Wheezing or Shortness of Breath. albuterol 2020-0 Yes [id number] 2{puff} Inhale 2 [facility] 90 1-17 Puffs ity of mcg/actuati 00:00: every 6 [place] as on inhaler 00 (six) Medical hours as Branch needed for Wheezing or Shortness of Breath. albuterol 2020-0 Yes [id number] 2{puff} Inhale 2 [facility] 90 1-17 Puffs ity of mcg/actuati 00:00: every 6 [place] as on inhaler 00 (six) Medical hours as Branch needed for Wheezing or Shortness of Breath. albuterol 2020-0 Yes [id number] 2{puff} Inhale 2 [facility] 90 1-17 Puffs ity of mcg/actuati 00:00: every 6 [place] as on inhaler 00 (six) Medical hours as Branch needed for Wheezing or Shortness of Breath. albuterol 2020-0 Yes [id number] 2{puff} Inhale 2 [facility] 90 1-17 Puffs ity of mcg/actuati 00:00: every 6 [place] as on inhaler 00 (six) Medical hours as Branch needed for Wheezing or Shortness of Breath. albuterol 2020-0 Yes [id number] 2{puff} Inhale 2 [facility] 90 1-17 Puffs ity of mcg/actuati 00:00: every 6 [place] as on inhaler 00 (six) Medical hours as Branch needed for Wheezing or Shortness of Breath. albuterol 2020-0 Yes [id number] 2{puff} Inhale 2 [facility] 90 1-17 Puffs ity of mcg/actuati 00:00: every 6 [place] as on inhaler 00 (six) Medical hours as Branch needed for Wheezing or Shortness of Breath. albuterol 2020-0 Yes [id number] 2{puff} Inhale 2 [facility] 90 1-17 Puffs ity of mcg/actuati 00:00: every 6 [place] as on inhaler 00 (six) Medical hours as Branch needed for Wheezing or Shortness of Breath. albuterol 2019-0 Yes [id number] 2{puff} Inhale 2 [facility] 90 1-17 Puffs ity of mcg/actuati 00:00: every 6 [place] as on inhaler 00 (six) Medical hours as Branch needed for Wheezing or Shortness of Breath. albuterol 2020-0 Yes [id number] 2{puff} Inhale 2 [facility] 90 1-17 Puffs ity of mcg/actuati 00:00: every 6 [place] as on inhaler 00 (six) Medical hours as Branch needed for Wheezing or Shortness of Breath. albuterol 2020-0 Yes [id number] 2{puff} Inhale 2 [facility] 90 1-17 Puffs ity of mcg/actuati 00:00: every 6 [place] as on inhaler 00 (six) Medical hours as Branch needed for Wheezing or Shortness of Breath. albuterol 2020-0 Yes [id number] 2{puff} Inhale 2 [facility] 90 1-17 Puffs ity of mcg/actuati 00:00: every 6 [place] as on inhaler 00 (six) Medical hours as Branch needed for Wheezing or Shortness of Breath. albuterol Yes [id number] 2{puff} Inhale 2 [facility] 90 1-17 Puffs ity of mcg/actuati 00:00: every 6 [place] as on inhaler 00 (six) Medical hours as Branch needed for Wheezing or Shortness of Breath. albuterol Yes [id number] 2{puff} Inhale 2 [facility] 90 1-17 Puffs ity of mcg/actuati 00:00: every 6 [place] as on inhaler 00 (six) Medical hours as Branch needed for Wheezing or Shortness of Breath. albuterol Yes [id number] 2{puff} Inhale 2 [facility] 90 1-17 Puffs ity of mcg/actuati 00:00: every 6 [place] as on inhaler 00 (six) Medical hours as Branch needed for Wheezing or Shortness of Breath. albuterol 0 Yes [id number] 2{puff} Inhale 2 [facility] 90 1-17 Puffs ity of mcg/actuati 00:00: every 6 [place] as on inhaler 00 (six) Medical hours as Branch needed for Wheezing or Shortness of Breath. albuterol Yes [id number] 2{puff} Inhale 2 [facility] 90 1-17 Puffs ity of mcg/actuati 00:00: every 6 [place] as on inhaler 00 (six) Medical hours as Branch needed for Wheezing or Shortness of Breath. albuterol 0 Yes [id number] 2{puff} Inhale 2 [facility] 90 1-17 Puffs ity of mcg/actuati 00:00: every 6 [place] as on inhaler 00 (six) Medical hours as Branch needed for Wheezing or Shortness of Breath. albuterol Yes [id number] 2{puff} Inhale 2 [facility] 90 1-17 Puffs ity of mcg/actuati 00:00: every 6 [place] as on inhaler 00 (six) Medical hours as Branch needed for Wheezing or Shortness of Breath. albuterol 0 Yes [id number] 2{puff} Inhale 2 [facility] 90 1-17 Puffs ity of mcg/actuati 00:00: every 6 [place] as on inhaler 00 (six) Medical hours as Branch needed for Wheezing or Shortness of Breath. albuterol 0 Yes [id number] 2{puff} Inhale 2 [facility] 90 1-17 Puffs ity of mcg/actuati 00:00: every 6 [place] as on inhaler 00 (six) Medical hours as Branch needed for Wheezing or Shortness of Breath. albuterol 2020-0 Yes [id number] 2{puff} Inhale 2 [facility] 90 1-17 Puffs ity of mcg/actuati 00:00: every 6 [place] as on inhaler 00 (six) Medical hours as Branch needed for Wheezing or Shortness of Breath. albuterol 2020-0 Yes [id number] 2{puff} Inhale 2 [facility] 90 1-17 Puffs ity of mcg/actuati 00:00: every 6 [place] as on inhaler 00 (six) Medical hours as Branch needed for Wheezing or Shortness of Breath. albuterol 2019-0 Yes [id number] 2{puff} Inhale 2 [facility] 90 1-17 Puffs ity of mcg/actuati 00:00: every 6 [place] as on inhaler 00 (six) Medical hours as Branch needed for Wheezing or Shortness of Breath. albuterol 2019-0 Yes [id number] 2{puff} Inhale 2 [facility] 90 1-17 Puffs ity of mcg/actuati 00:00: every 6 [place] as on inhaler 00 (six) Medical hours as Branch needed for Wheezing or Shortness of Breath. albuterol 2019-0 Yes [id number] 2{puff} Inhale 2 [facility] 90 1-17 Puffs ity of mcg/actuati 00:00: every 6 [place] as on inhaler 00 (six) Medical hours as Branch needed for Wheezing or Shortness of Breath. albuterol 2019-0 Yes [id number] 2{puff} Inhale 2 [facility] 90 1-17 Puffs ity of mcg/actuati 00:00: every 6 [place] as on inhaler 00 (six) Medical hours as Branch needed for Wheezing or Shortness of Breath. albuterol 2020-0 Yes [id number] 2{puff} Inhale 2 [facility] 90 1-17 Puffs ity of mcg/actuati 00:00: every 6 [place] as on inhaler 00 (six) Medical hours as Branch needed for Wheezing or Shortness of Breath. albuterol 2019-0 Yes [id number] 2{puff} Inhale 2 [facility] 90 1-17 Puffs ity of mcg/actuati 00:00: every 6 [place] as on inhaler 00 (six) Medical hours as Branch needed for Wheezing or Shortness of Breath. albuterol 2020-0 Yes [id number] 2{puff} Inhale 2 [facility] 90 1-17 Puffs ity of mcg/actuati 00:00: every 6 [place] as on inhaler 00 (six) Medical hours as Branch needed for Wheezing or Shortness of Breath. albuterol 2020-0 Yes [id number] 2{puff} Inhale 2 [facility] 90 1-17 Puffs ity of mcg/actuati 00:00: every 6 [place] as on inhaler 00 (six) Medical hours as Branch needed for Wheezing or Shortness of Breath. albuterol 2020-0 Yes [id number] 2{puff} Inhale 2 [facility] 90 1-17 Puffs ity of mcg/actuati 00:00: every 6 [facility] as on inhaler 00 (six) Medical hours as Branch needed for Wheezing or Shortness of Breath. albuterol 2020-0 Yes [id number] 2{puff} Inhale 2 [facility] 90 1-17 Puffs ity of mcg/actuati 00:00: every 6 [place] as on inhaler 00 (six) Medical hours as Branch needed for Wheezing or Shortness of Breath. albuterol 2020-0 Yes [id number] 2{puff} Inhale 2 [facility] 90 1-17 Puffs ity of mcg/actuati 00:00: every 6 [facility] as on inhaler 00 (six) Medical hours as Branch needed for Wheezing or Shortness of Breath. albuterol 2020-0 Yes [id number] 2{puff} Inhale 2 [facility] 90 1-17 Puffs ity of mcg/actuati 00:00: every 6 [facility] as on inhaler 00 (six) Medical hours as Branch needed for Wheezing or Shortness of Breath. albuterol 2020-0 Yes [id number] 2{puff} Inhale 2 [facility] 90 1-17 Puffs ity of mcg/actuati 00:00: every 6 [facility] as on inhaler 00 (six) Medical hours as Branch needed for Wheezing or Shortness of Breath. albuterol 2020-0 Yes [id number] 2{puff} Inhale 2 [facility] 90 1-17 Puffs ity of mcg/actuati 00:00: every 6 [place] as on inhaler 00 (six) Medical hours as Branch needed for Wheezing or Shortness of Breath. albuterol 2020-0 Yes [id number] 2{puff} Inhale 2 [facility] 90 1-17 Puffs ity of mcg/actuati 00:00: every 6 [place] as on inhaler 00 (six) Medical hours as Branch needed for Wheezing or Shortness of Breath. albuterol 2020-0 Yes [id number] 2{puff} Inhale 2 [facility] 90 1-17 Puffs ity of mcg/actuati 00:00: every 6 [facility] as on inhaler 00 (six) Medical hours as Branch needed for Wheezing or Shortness of Breath. albuterol 2020-0 Yes [id number] 2{puff} Inhale 2 [facility] 90 1-17 Puffs ity of mcg/actuati 00:00: every 6 [place] as on inhaler 00 (six) Medical hours as Branch needed for Wheezing or Shortness of Breath. albuterol 2020-0 Yes [id number] 2{puff} Inhale 2 [facility] 90 1-17 Puffs ity of mcg/actuati 00:00: every 6 [place] as on inhaler 00 (six) Medical hours as Branch needed for Wheezing or Shortness of Breath. albuterol 2020-0 Yes [id number] 2{puff} Inhale 2 [facility] 90 1-17 Puffs ity of mcg/actuati 00:00: every 6 [place] as on inhaler 00 (six) Medical hours as Branch needed for Wheezing or Shortness of Breath. albuterol 2020-0 Yes [id number] 2{puff} Inhale 2 [facility] 90 1-17 Puffs ity of mcg/actuati 00:00: every 6 [place] as on inhaler 00 (six) Medical hours as Branch needed for Wheezing or Shortness of Breath. albuterol 2020-0 Yes [id number] 2{puff} Inhale 2 [facility] 90 1-17 Puffs ity of mcg/actuati 00:00: every 6 [facility] as on inhaler 00 (six) Medical hours as Branch needed for Wheezing or Shortness of Breath. albuterol 2020-0 Yes [id number] 2{puff} Inhale 2 [facility] 90 1-17 Puffs ity of mcg/actuati 00:00: every 6 [place] as on inhaler 00 (six) Medical hours as Branch needed for Wheezing or Shortness of Breath. albuterol 2020 Yes [id number] 2{puff} Inhale 2 [facility] 90 1-17 Puffs ity of mcg/actuati 00:00: every 6 [place] as on inhaler 00 (six) Medical hours as Branch needed for Wheezing or Shortness of Breath. albuterol 2019-0 Yes [id number] 2{puff} Inhale 2 [facility] 90 1-17 Puffs ity of mcg/actuati 00:00: every 6 [place] as on inhaler 00 (six) Medical hours as Branch needed for Wheezing or Shortness of Breath. albuterol 2019-0 Yes [id number] 2{puff} Inhale 2 [facility] 90 1-17 Puffs ity of mcg/actuati 00:00: every 6 [place] as on inhaler 00 (six) Medical hours as Branch needed for Wheezing or Shortness of Breath. rosuvastati 2018- Yes [id number] 5mg Take 1 [facility] n 5 mg 0-24 tablet by ity of tablet 00:00: mouth [place] 00 daily. Medical Branch rosuvastati 2018-06 Yes [id number] 5mg Take 1 [facility] n 5 mg 0-24 tablet by ity of tablet 00:00: mouth [place] 00 daily. Medical Branch rosuvastati 2018-06 Yes [id number] 5mg Take 1 [facility] n 5 mg 0-24 tablet by ity of tablet 00:00: mouth [place] 00 daily. Medical Branch rosuvastati 2018- Yes [id number] 5mg Take 1 [facility] n 5 mg 0-24 tablet by ity of tablet 00:00: mouth [place] 00 daily. Medical Branch rosuvastati 2018- Yes [id number] 5mg Take 1 [facility] n 5 mg 0-24 tablet by ity of tablet 00:00: mouth [place] 00 daily. Medical Branch rosuvastati 2018- Yes [id number] 5mg Take 1 [facility] n 5 mg 0-24 tablet by ity of tablet 00:00: mouth [place] 00 daily. Medical Branch rosuvastati 2018- Yes [id number] 5mg Take 1 [facility] n 5 mg 0-24 tablet by ity of tablet 00:00: mouth [place] 00 daily. Medical Branch rosuvastati 2018- Yes [id number] 5mg Take 1 [facility] n 5 mg 0-24 tablet by ity of tablet 00:00: mouth [place] 00 daily. Medical Branch rosuvastati 2018-06 Yes [id number] 5mg Take 1 [facility] n 5 mg 0-24 tablet by ity of tablet 00:00: mouth [place] 00 daily. Medical Branch rosuvastati 2018-06 Yes [id number] 5mg Take 1 [facility] n 5 mg 0-24 tablet by ity of tablet 00:00: mouth [place] 00 daily. Medical Branch rosuvastati 2018-06 Yes [id number] 5mg Take 1 Univers n 5 mg 0-24 tablet by ity of tablet 00:00: mouth [place] 00 daily. Medical Branch rosuvastati 2018-06 Yes [id number] 5mg Take 1 [facility] n 5 mg 0-24 tablet by ity of tablet 00:00: mouth [place] 00 daily. Medical Branch rosuvastati 2018-06 Yes [id number] 5mg Take 1 [facility] n 5 mg 0-24 tablet by ity of tablet 00:00: mouth [place] 00 daily. Medical Branch rosuvastati 2018-06 Yes [id number] 5mg Take 1 [facility] n 5 mg 0-24 tablet by ity of tablet 00:00: mouth [place] 00 daily. Medical Branch rosuvastati 2018-06 Yes [id number] 5mg Take 1 [facility] n 5 mg 0-24 tablet by ity of tablet 00:00: mouth [place] 00 daily. Medical Branch rosuvastati 2018-06 Yes [id number] 5mg Take 1 [facility] n 5 mg 0-24 tablet by ity of tablet 00:00: mouth [place] 00 daily. Medical Branch rosuvastati 2018-06 Yes [id number] 5mg Take 1 [facility] n 5 mg 0-24 tablet by ity of tablet 00:00: mouth [place] 00 daily. Medical Branch rosuvastati 2018-06 2020- No [id number] 5mg Take 1 Univers n 5 mg 0-24 12-10 tablet by ity of tablet 00:00: 00:00 mouth [place] 00 :00 daily. Medical Branch ASPIRIN 2018- Yes 81mg Take 81 mg Univ ers ORAL 0-01 by mouth. ity of 14:31: [place] [address] Medical Branch finasteride 2018- Yes 5mg Take 5 mg U nivers 5 mg tablet 0-01 by mouth ity of 14:31: daily. [place] [address] Medical Branch docusate 2018-06 Yes 250mg Take 250 Univ ers sodium 250 0-01 mg by ity of mg capsule 14:31: mouth [place] [address] daily. Medical Branch ALBUTEROL 2018-06 Yes Inhale. Unive rs INHALE 0-01 ity of 14:31: [place] [address] Medical Branch ASPIRIN 2018-06 Yes 81mg Take 81 mg Univ ers ORAL 0-01 by mouth. ity of 14:31: [place] [address] Medical Branch finasteride 2018-06 Yes 5mg Take 5 mg U nivers 5 mg tablet 0-01 by mouth ity of 14:31: daily. [address] Branch docusate 2018-06 Yes 250mg Take 250 Univ ers sodium 250 0-01 mg by ity of mg capsule 14:31: mouth [place] [address] daily. Medical Branch ALBUTEROL 2018-06 Yes Inhale. Unive rs INHALE 0-01 ity of 14:31: [place] [address] Medical Branch ASPIRIN 2018-06 Yes 81mg Take 81 mg Univ ers ORAL 0-01 by mouth. ity of 14:31: [place] [address] Medical Branch finasteride 2018-06 Yes 5mg Take 5 mg U nivers 5 mg tablet 0-01 by mouth ity of 14:31: daily. [address] Branch docusate 2018-06 Yes 250mg Take 250 Univ ers sodium 250 0-01 mg by ity of mg capsule 14:31: mouth [place] [address] daily. Medical Branch ALBUTEROL 2018-06 Yes Inhale. Unive rs INHALE 0-01 ity of 14:31: [place] [address] Medical Branch oxybutynin Yes [id number] 5mg Take 1 Tab [facility] (DITROPAN-X 5-29 by mouth 3 [facility]) 5 MG CR 00:00: times of tablet 00 daily. Medicin e finasteride Yes [id number] 5mg Take 1 Tab [facility] (PROSCAR) 5 5-29 by mouth Melonie ege MG tablet 00:00: daily. of 00 Medicin e Tamsulosin Yes [id number] .4mg Take 0.4 [facility] HCl 0.4 MG 5-29 mg by [facility] CAPS 00:00: mouth two of 00 times Medicin daily. e oxybutynin 2020- No [id number] 5mg Take 1 Tab [facility] (DITROPAN-X 5-29 04-20 by mouth 3 [facility]) 5 MG CR 00:00: 00:00 times of tablet 00 :00 daily. Medicin e finasteride 2020- No [id number] 5mg Take 1 Tab [facility] (PROSCAR) 5 10-29 by mouth Col lege MG tablet 00:00: 00:00 daily. of 00 :00 Medicin e VENTOLIN 2018-0 [id number] [facility] ([address] [place] [address]) 00:00: of MCG/ACT 00 Medicin inhaler e VENTOLIN 2018-0 Yes [id number] [facility]. [facility] ([address] [place] [address]) 00:00: of MCG/ACT 00 Medicin inhaler e VENTOLIN 2018-0 Yes [id number] [facility]. [facility] ([address] [place] [address]) 00:00: of MCG/ACT 00 Medicin inhaler e VENTOLIN 2018-0 Yes [id number] [facility]. [facility] ([address] [place] [address]) 00:00: of MCG/ACT 00 Medicin inhaler e VENTOLIN 2018-0 Yes [id number] [facility]. [facility] ([address] [place] [address]) 00:00: of MCG/ACT 00 Medicin inhaler e VENTOLIN 2018-0 Yes [id number] [facility]. [facility] ([address] [place] [address]) 00:00: of MCG/ACT 00 Medicin inhaler e VENTOLIN 2018-0 Yes [id number] [facility]. [facility] ([address] [place] [address]) 00:00: of MCG/ACT 00 Medicin inhaler e VENTOLIN 2018-0 Yes [id number] [facility]. [facility] ([address] [place] [address]) 00:00: of MCG/ACT 00 Medicin inhaler e ipratropium 2016-06 Yes [id number] 2{puff} 2 Puffs by [facility] (ATROVENT 06-11 [facility]) 17 00:00: Cannula of MCG/ACT 00 route. Medicin inhaler e ipratropium 2016-06- No [id number] 2{puff} 2 Puffs by [facility] (ATROVENT 06-11 [facility]) 17 00:00: 00:00 [place] of MCG/ACT 00 :00 route. Medicin inhaler e tamsulosin 2016- Yes .4mg Take 1 Unive rs 0.4 mg 24 0-19 capsule by [facility]y of hr capsule 00:00: [place] ([place] Medical times Branch daily. tamsulosin 2016- Yes .4mg Take 1 Unive rs 0.4 mg 24 0-19 capsule by [facility]y of hr capsule 00:00: [place] (two) Medical times Branch daily. tamsulosin 2016- Yes .4mg Take 1 Unive rs 0.4 mg 24 0-19 capsule by [facility]y of hr capsule 00:00: mouth [place] (two) Medical times Branch daily. tamsulosin 2016- Yes .4mg Take 1 Unive rs 0.4 mg 24 0-19 capsule by [facility]y of hr capsule 00:00: mouth [place] (two) Medical times Branch daily. tamsulosin 2016- Yes .4mg Take 1 Unive rs 0.4 mg 24 0-19 capsule by [facility]y of hr capsule 00:00: mouth [place] (two) Medical times Branch daily. tamsulosin 2016- Yes .4mg Take 1 Unive rs 0.4 mg 24 0-19 capsule by [facility]y of hr capsule 00:00: mouth [place] (two) Medical times Branch daily. tamsulosin 2016- Yes .4mg Take 1 Unive rs 0.4 mg 24 0-19 capsule by [facility]y of hr capsule 00:00: mouth [place] (two) Medical times Branch daily. tamsulosin 2016- Yes .4mg Take 1 Unive rs 0.4 mg 24 0-19 capsule by [facility]y of hr capsule 00:00: mouth [place] (two) Medical times Branch daily. tamsulosin 2016- Yes .4mg Take 1 Unive rs 0.4 mg 24 0-19 capsule by ity of hr capsule 00:00: mouth [place] (two) Medical times Branch daily. tamsulosin 2016- Yes .4mg Take 1 Unive rs 0.4 mg 24 0-19 capsule by ity of hr capsule 00:00: mouth [place] (two) Medical times Branch daily. tamsulosin 2016- Yes .4mg Take 1 Unive rs 0.4 mg 24 0-19 capsule by ity of hr capsule 00:00: mouth [place] (two) Medical times Branch daily. tamsulosin 2016- Yes .4mg Take 1 Unive rs 0.4 mg 24 0-19 capsule by [facility]y of hr capsule 00:00: mouth [place] (two) Medical times Branch daily. tamsulosin 2016- Yes .4mg Take 1 Unive rs 0.4 mg 24 0-19 capsule by ity of hr capsule 00:00: mouth [place] (two) Medical times Branch daily. tamsulosin 2016- Yes .4mg Take 1 Unive rs 0.4 mg 24 0-19 capsule by ity of hr capsule 00:00: mouth [place] (two) Medical times Branch daily. tamsulosin 2016- Yes .4mg Take 1 Unive rs 0.4 mg 24 0-19 capsule by ity of hr capsule 00:00: mouth [place] (two) Medical times Branch daily. tamsulosin 2016-06 Yes .4mg Take 1 Unive rs 0.4 mg 24 0-19 capsule by [facility] capsule [place] [facility] daily. tamsulosin 2016- Yes .4mg Take 1 [facility]ive rs 0.4 mg 24 0-19 capsule by [facility] capsule [place] [facility] daily. tamsulosin 2016- Yes .4mg Take 1 Unive rs 0.4 mg 24 0-19 capsule by [facility] [place] capsule [place] ([place] [facility] daily. tamsulosin 2016- Yes .4mg Take 1 Unive rs 0.4 mg 24 0-19 capsule by [facility] [place] capsule [place] ([place] [facility] daily. tamsulosin 2016- 2020- No .4mg Take 1 Univ ers 0.4 mg 24 0-19 12-16 capsule by ity of hr capsule 00:00: 00:00 mouth 2 [place] 00 :00 (two) Medical times Branch daily. tamsulosin 2016- 2020- No .4mg Take 1 Univ ers 0.4 mg 24 0-19 12-16 capsule by ity of hr capsule 00:00: 00:00 mouth 2 [place] 00 :00 (two) Medical times Branch daily. tamsulosin 2016-06 2020- No .4mg Take 1 Univ ers 0.4 mg 24 0-19 12-16 capsule by ity of hr capsule 00:00: 00:00 mouth 2 [place] 00 :00 (two) Medical times Branch daily. tamsulosin 2016-06- No .4mg Take 1 Univ ers 0.4 mg 24 0-19 12-16 capsule by ity of hr capsule 00:00: 00:00 mouth 2 [place] 00 :00 (two) Medical times Branch daily. tamsulosin 2016-06- No .4mg Take 1 Univ ers 0.4 mg 24 0-19 12-16 capsule by ity of hr capsule 00:00: 00:00 mouth 2 [place] 00 :00 (two) Medical times Branch daily. clopidogrel 2016-06- No 75mg Take 1 Uni vers 75 mg 0-19 02-03 tablet by ity of tablet 00:00: 00:00 mouth [place] 00 :00 daily. Medical Branch tamsulosin 2016-06 Yes 0.8 mg = 2 M emoria 0.4 mg oral 0-01 cap, PO, l capsule 18:06: After [place] 00 Breakfast, # 20 cap, 0 Refill(s) Docusate 2016-06 Yes 100 mg = 1 Mem oria Sodium 100 0-01 cap, PO, l MG Oral 18:06: BID, PRN Nikolay n Capsule 00 Constipati on, # 20 cap, 0 Refill(s) senna 8.6 2016-06 Yes 17.2 mg = Mem oria mg oral 0-01 2 tab, PO, l tablet 18:06: QNoon, X [place] 00 10 day, # 20 tab, 0 Refill(s) nebivolol 2016-06 Yes 2.5 mg = 1 Me moria 2.5 MG Oral 0-01 tab, PO, l Tablet 18:06: Daily, # [place] [Bystolic] 00 30 tab, 1 Refill(s) aspirin 81 2016-06 Yes 81 mg = 1 Me moria mg tablet, 0-01 tab, PO, l enteric 18:06: Daily, # Nikolay n coated 00 100 tab, 0 Refill(s) Acetaminoph 2016-06 Yes 2 tab, PO, Memoria en 300 MG / 0-01 Q4H, PRN l Codeine 18:06: Pain Score Herm jessica Phosphate 00 4-6, X 10 30 MG Oral day, # 120 Tablet tab, 0 [Tylenol Refill(s) with Codeine #3] Miralax No Notes: Memoria 03-02 Dissolve l 14:00: in 8 oz of [place] water or juice. (Same as: Miralax) Acetaminoph No Notes: Do M emoria en 300 MG / 03-02 not exceed l Codeine 12:47: 4gm/day of Herm jessica Phosphate acetaminop 30 MG Oral hen. Tablet (Same as: [Tylenol Tylenol with with Codeine #3] Codeine # 3) Calcium No Notes: Memoria Gluconate 03-01 WASTE: F/P l 15:33: - Sink; E - Municipal Trash Bin Magnesium No Notes: Memori a Oxide 03-01 (Same as: l 15:33: Mag-Ox 400) Magnesium oxide 467xu=858l g elemental magnesium Dose=____m g magnesium oxide (___mg elemental magnesium) Magnesium No Notes: Memori a Sulfate 03-01 WASTE: F/P l 15:33: - Sink; E - Municipal Trash Bin sodium No 30 mmol, Memoria phosphate 03-01 10 mL, l 15:33: Route: IVPB, PRN, Dosing Weight 86.591, kg, PRN Abnormal Lab Result, For NON-ICU Patients Only., Start date: 03/01/17 10:33:00 CDT, Duration: 30 day, Stop date: 03/31/17 10:32:00 CDT potassium No Notes: Memori a phosphate 03-01 (Same as: l 15:33: K Phosphate. ) 1 mMol phoshate has 1.47 mEq potassium Infuse over 4 hours Potassium No Notes: Memori a Chloride 03-01 (Same as: l 15:33: Potassium Chloride) potassium No Notes: Memori a phosphate-s 03-01 (Same as: l odium 15:33: Phos-NaK) [place] phosphate 00 Each 1.5 250 mg-280 gm pkt has mg-160 mg 250mg oral powder phosphorou for s. Mix reconstitut w/2.5oz ion water and stir. Melatonin 3 No Notes: Rafal ivelisse MG Extended 03-01 (Same as: l Release 15:16: Melatonin) Herm jessica Tablet 00 nebivolol No Notes: Memori a 03-01 Same as: l 14:00: Bystolic Christopher senna 8.6 No Notes: Memori a mg oral 02-28 (Same as: l tablet 17:00: Senokot) Flomax No Notes: Memoria 02-28 (Same As: l 15:07: Flomax) "Do Not Crush" Glucagon No 1 mg, Memoria 02-28 Route: IM, l 15:04: Drug form: PDR/INJ, PRN, Dosing Weight 86.591, kg, PRN Blood Glucose Results, Start date: 02/28/17 10:04:00 CDT, Duration: 30 day, Stop date: 03/30/17 10:03:00 CDT Dextrose No 25 gm, 50 Rafal ivelisse 50% Syringe 9-28 mL, Route: l 15:04: IVP, Drug Form: INJ, Dosing Weight 86.591, kg, PRN, PRN Blood Glucose Results, Start date: 02/28/17 10:04:00 CDT, Duration: 30 day, Stop date: 03/30/17 10:03:00 CDT Insulin No 60 Memoria Lispro -28 units) l 15:04: WASTE: F/P [place] - Black; E - Municipal Trash Bin Stable for 28 days at room temper[place] e. Expires in days from ____Date Simethicone No Notes: Rafal ivelisse - (Same as: l 15:03: Mylicon) [place] Reglan No Notes: Memoria 02-28 (Same as: l 15:03: Reglan) [place] 00 D5W 1/2NS No 1,000 mL, Mem oria 1,000 mL 02-28 Rate: 75 l 15:00: ml/hr, [place] Infuse over: 13.3 hr, Route: IV, Dosing Weight 86.591 kg, Total Volume: 1,000, Start date: 02/28/17 10:00:00 CDT, Duration: 30 day, Stop date: 03/30/17 9:59:00 CDT aspirin 81 No 81 mg, 1 Mem oria mg tablet, 02-27 tab, l enteric 22:00: Route: PO, Herm jessica coated Drug form: ECTAB, BID, Dosing Weight 86.591, kg, Start date: 02/27/17 17:00:00 CDT, Duration: 30 day, Stop date: 03/29/17 9:00:00 CDT heparin No Notes: Memoria sodium, 02-27 porcine l porcine 21:00: heparin [place] 2500 UNT/ML Injectable Solution aspirin 81 No Notes: Do Me moria mg tablet, 02-27 not crush l enteric 18:00: or chew. Nikolay n coated (Same As: Ecotrin) pantoprazol No 40 mg, Rafal ivelisse e 02-27 Route: l 14:00: IVP, Drug [place] 00 form: INJ, Daily, Dosing Weight 86.591, kg, Start date: 02/27/17 9:00:00 CDT, Duration: 30 day, Stop date: 03/28/17 9:00:00 CDT chlorhexidi No Notes: Rafal ivelisse ne 02-27 (Same As: l gluconate 14:00: Hibiclens) [place] r[place] 40 MG/ML Medicated Liquid Soap influenza Yes Notes: Memori a virus 02-27 (Same as: l vaccine, 14:00: Fluzone Nikolay n inactivated 00 Quadrivale nt, Fluarix Quadrivale nt) For 3 years of age and older (0.5 mL IM) Shake well before use Docusate No Notes: Memoria Sodium 100 02-27 (Same as: l MG Oral 14:00: Colace) [place] Capsule (Do Not [Colace] Crush) Zofran No Notes: Memoria 02-27 (Same as: l 12:43: Zofran) [place] MEDICATION WASTE Product Size: 4 mg Product Wasted: ___ mg Dilaudid No Notes: Memoria 02-27 Same as: l 12:42: Dilaudid [place] 00 Acetaminoph No or = 50 Me moria en 10 MG/ML 02-27 kg, l Injectable 10:45: Priority: He rmann Solution 00 NOW, Start date: 02/27/17 5:45:00 CDT, Duration: 30 day, Stop date: 03/29/17 0:00:00 CDT Morphine No Notes: Memoria 02-27 (Same l 09:35: as:MORPhin [place] 00 e Sulfate) chlorhexidi No Notes: Rafal ivelisse ne 02-27 (Same As: l gluconate 02:00: Peridex) Herm jessica 1.2 MG/ML 00 Mouthwash Miralax No Notes: Memoria 02-27 Dissolve l 01:40: in 8 oz of [place] 00 water or juice. (Same as: Miralax) Simethicone No Notes: Rafal ivelisse 02-27 (Same as: l 01:40: Mylicon, [place] 00 Phazyme, Genasyme) Metoprolol No Notes: Memor ia 02-27 (Same as: l 01:03: Lopressor) Push over 2 minutes Cefazolin No Notes: Memori a 02-26 Same as: l 21:00: Ancef [place] 00 NS (Bolus) No 1,000 mL, Me moria IV 02-26 1,000 l 20:24: ml/hr, [place] 00 Infuse Over: 1 hr, Route: IV, 1,000, Drug form: INJ, ONCE, Priority: STAT, Dosing Weight 86.591 kg, Start date: 02/26/17 15:24:00 CDT, Duration: 1 doses or times, Stop date: 02/26/17 15:24:00 CDT Fentanyl No 25 Memoria 02-26 microgram, l 19:59: Route: [place] IVP, Drug form: INJ, ONCE, Dosing Weight 86.591, kg, Start date: 02/26/17 14:59:00 CDT, Stop date: 02/26/17 14:59:00 CDT sodium No 1,000 mL, Memori a chloride 02-26 Rate: 100 l 0.45% 1000 19:24: ml/hr, [place] nn ml INJ 00 Infuse 1,000 mL over: 10 hr, Route: IV, Dosing Weight 86.591 kg, Total Volume: 1,000, Start date: 02/26/17 14:24:00 CDT, Duration: 30 day, Stop date: 03/28/17 14:23:00 CDT pantoprazol No Notes: For Memoria e 02-26 IV push l 18:00: reconstitu te with 10 ml 0.9% sodium chloride and push over 2 minutes. (Same as: Protonix) Calcium No Notes: Memoria Carbonate 02-26 (Same As: l 500 MG 17:40: Tums) [place] Chewable 00 Calcium Tablet Carbonate 500 mg = 200 mg elemental calcium Dose = mg calcium carbonate ( mg elemental calcium) Magnesium No Notes: Memori a Oxide 02-26 (Same as: l 17:40: Mag-Ox [place] 00 400) Magnesium oxide [id number] g elemental magnesium Dose=____m g magnesium oxide (___mg elemental magnesium) Magnesium No Notes: Memori a Sulfate 02-26 WASTE: F/P l 17:40: - Sink; E [place] 00 - Municipal Trash Bin Calcium No Notes: Memoria Gluconate 02-26 WASTE: F/P l 17:40: - Sink; E [place] - Municipal Trash Bin sodium No 45 mmol, Memoria phosphate 02-26 15 mL, l 17:40: Route: [place] 00 IVPB, PRN, Dosing Weight 86.591, kg, PRN Abnormal Lab Result, Start date: 02/26/17 12:40:00 CDT, Duration: 30 day, Stop date: 03/28/17 12:39:00 CDT, FOR ICU USE ONLY potassium No Notes: Memori a phosphate 02-26 (Same as: l 17:40: K [place] 00 Phosphate. ) 1 mMol phoshate has 1.47 mEq potassium Infuse over 4 hours potassium No Notes: Memori a phosphate-s 02-26 (Same as: l odium 17:40: Phos-NaK) [place] phosphate 00 Each 1.5 250 mg-280 gm pkt has mg-160 mg 250mg oral powder phosphorou for s. Mix reconstitut w/2.5oz ion water and stir. Potassium No Notes: Memori a Chloride 02-26 (Same as: l 17:40: KCL) [place] 00 Infuse over 2 hours. Dextrose No 25 gm, 50 Rafal ivelisse 50% Syringe 02-26 mL, Route: l 17:13: IVP, Drug Form: INJ, Dosing Weight 86.591, kg, PRN, PRN Blood Glucose Results, Start date: 02/26/17 12:13:00 CDT, Duration: 30 day, Stop date: 03/28/17 12:12:00 CDT Insulin No Notes: Memoria regular 100 02-26 Final l unit + 17:13: Concentrat [place] nn 00 ion 1unit/1ml WASTE: F/P - Black; E - Municipal Trash Bin chlorhexidi No Notes: Rafal ivelisse ne 02-26 (Same As: l gluconate 17:09: Peridex) Herm jessica 1.2 MG/ML 00 Mouthwash Nitroglycer No Notes: Rafal ivelisse in 02-26 (Same l 17:09: as:Nitroqu [place] ick, Nitrostat) "Do Not Crush" Sublingual tablet Docusate No Notes: Memoria 02-26 (Same as: l 17:09: Colace) [place] 00 (Do Not Crush) Acetaminoph No Notes: Rafal ivelisse en 325 MG / 02-26 (Same as: l Hydrocodone 17:09: [place] nn Bitartrate 00 325/5) Do 5 MG Oral not exceed Tablet 4gm/day of acetaminop hen. Nicardipine No Notes: Rafal ivelisse 02-26 Same as: l 16:12: Cardene [place] 00 Concentrat ion: (0.2 mg /1 ml ) tranexamic No Route: IV, M emoria acid (ANES) 02-26 Drug form: l 15:31: INJ, ONCE, Stop date: 02/26/17 10:31:00 CDT glycopyrrol No Route: IV, Memoria ate (ANES) 02-26 Drug form: l 14:51: INJ, ONCE, Stop date: 02/26/17 9:51:00 CDT protamine No Route: IV, Me moria (ANES) 02-26 Drug form: l 14:41: INJ, ONCE, Stop date: 02/26/17 9:41:00 CDT calcium No Route: IV, Rafal ivelisse gluconate 02-26 Drug form: l (ANES) 14:16: INJ, ONCE, Stop date: 02/26/17 9:16:00 CDT midazolam No Route: IV, Me moria (ANES) 02-26 Drug form: l 14:16: SOLN, ONCE, Stop date: 02/26/17 9:16:00 CDT sodium No Route: IV, Memor ia bicarbonate 02-26 Drug form: l (ANES) 14:06: INJ, ONCE, [place] Stop date: 02/26/17 9:06:00 CDT heparin No Route: IV, Rafal ivelisse (ANES) 02-26 Drug form: l 13:56: INJ, ONCE, Stop date: 02/26/17 8:56:00 CDT lidocaine No Route: IV, Me moria (ANES) 02-26 Drug form: l 13:46: INJ, ONCE, Stop date: 02/26/17 8:46:00 CDT rocuronium No Route: IV, M emoria (ANES) 02-26 Drug form: l 13:46: INJ, ONCE, Stop date: 02/26/17 8:46:00 CDT fentaNYL No Route: IV, Mem oria (ANES) 02-26 Drug form: l 13:46: INJ, ONCE, Stop date: 02/26/17 8:46:00 CDT propofol No Route: IV, Mem oria (ANES) 02-26 Drug form: l 13:46: INJ, ONCE, [place] 00 Stop date: 02/26/17 8:46:00 CDT ceFAZolin No Route: IV, Me moria (ANES) 02-26 Drug form: l 13:36: INJ, ONCE, Stop date: 02/26/17 8:36:00 CDT vancomycin No Route: IV, M emoria (ANES) 02-26 Drug form: l (ANES) 12:59: INJ, Start [place] nn date: 02/26/17 7:59:00 CDT, Stop date: 02/26/17 8:59:00 CDT sodium No Route: IV, Memor ia chloride 02-26 Total l 0.9% 1000 12:44: Volume: [place] nn ml INJ 00 1,000, (ANES) Start date: 02/26/17 7:44:00 CDT, Stop date: 02/26/17 8:44:00 CDT Isolyte S No Route: IV, Me moria (PH 7.4) 02-26 Total l 1000 mL 12:30: Volume: [place] (ANES) 00 1,000, Start date: 02/26/17 7:30:00 CDT, Stop date: 02/26/17 8:30:00 CDT nebivolol No 2.5 mg = 1 Me moria 2.5 MG Oral 02-26 tab, PO, l Tablet 12:06: Daily, 0 [place] [Bystolic] Refill(s) "Can't 2017 Yes "Can't Memoria remember 02-25 remember l the name" 13:53: the name", He rm 2.5 mg =, PO, Daily aspirin 81 No 81 mg = 1 Me moria mg tablet, 02-25 tab, PO, l enteric 13:53: BID [place] coated Zyrtec Yes PO, Daily Memori a 02-25 l 13:53: [place] 00 aspirin 81 Yes 81mg Take 81 mg M D mg EC 6-08 by mouth [place]o tablet 09:02: daily. n 53 Reported on 10/16/2016 peg Yes Colonoscopy Use as MD 3350-electr 5-23 planned directed A nderso olytes 00:00: by n (YVAN) 00 ordering [id number] provider. .74 g solution peg Yes Cardiac Use as MD 3350-electr 5-11 murmur, not directed Anderso olytes 00:00: otherwise by n (MichelleYTELY) 00 specified ordering [id number] provider. .74 g solution nebivolol 2015-06 Yes hypertensio 2.5mg Take 2.5 MD (BYSTOLIC) 1-28 n mg by Anderso 2.5 MG 00:00: mouth n tablet 00 daily. rosuvastati 2015-06 Yes 2.5mg Take 2.5 M D n (CRESTOR) 1-28 mg by Anderso 5 mg tablet 00:00: mouth 3 n 00 (three) times a week Saturday, Saturday and Saturday. clopidogrel 2015-06 Yes 75mg Take 75 mg MD (PLAVIX) 75 1-28 by mouth [place] rso mg tablet 00:00: daily. n 00 Reported on 11/08/2016 cetirizine Yes 10mg Take 10 mg M D (ZyrTEC) 10 5-11 by mouth [place] rso mg tablet 00:00: daily. n 00 Immunizations Ordered Filled Immunization Date Status Comments [facility] e Immunization Name Name SARS-COV-2 COVID-19 2020-07-29 Completed Unive rsity of PFIZER VACCINE 00:00:00 [facility] SARS-COV-2 COVID-19 2020-07-29 Completed Unive rsity of PFIZER VACCINE 00:00:00 [facility] SARS-COV-2 COVID-19 2020-07-29 Completed Unive rsity of PFIZER VACCINE 00:00:00 [facility] SARS-COV-2 COVID-19 2020-07-29 Completed Unive rsity of PFIZER VACCINE 00:00:00 [facility] SARS-COV-2 COVID-19 2020-07-29 Completed Unive rsity of PFIZER VACCINE 00:00:00 [facility] SARS-COV-2 COVID-19 2020-07-29 Completed Unive rsity of PFIZER VACCINE 00:00:00 [facility] SARS-COV-2 COVID-19 2020-07-29 Completed Unive rsity of PFIZER VACCINE 00:00:00 [facility] SARS-COV-2 COVID-19 2020-07-29 Completed Unive rsity of PFIZER VACCINE 00:00:00 [facility] SARS-COV-2 COVID-19 2020-07-29 Completed Unive rsity of PFIZER VACCINE 00:00:00 [facility] SARS-COV-2 COVID-19 2020-07-29 Completed Unive rsity of PFIZER VACCINE 00:00:00 [facility] SARS-COV-2 COVID-19 2020-07-29 Completed Unive rsity of PFIZER VACCINE 00:00:00 [facility] SARS-COV-2 COVID-19 2020-07-29 Completed Unive rsity of PFIZER VACCINE 00:00:00 [facility] SARS-COV-2 COVID-19 2020-07-29 Completed Unive rsity of PFIZER VACCINE 00:00:00 [facility] SARS-COV-2 COVID-19 2020-07-29 Completed Unive rsity of PFIZER VACCINE 00:00:00 [facility] SARS-COV-2 COVID-19 2020-07-29 Completed Unive rsity of PFIZER VACCINE 00:00:00 [facility] SARS-COV-2 COVID-19 2020-07-29 Completed Unive rsity of PFIZER VACCINE 00:00:00 [facility] SARS-COV-2 COVID-19 2020-07-29 Completed Unive rsity of PFIZER VACCINE 00:00:00 [facility] SARS-COV-2 COVID-19 2020-07-29 Completed Unive rsity of PFIZER VACCINE 00:00:00 [facility] SARS-COV-2 COVID-19 2020-07-29 Completed Unive rsity of PFIZER VACCINE 00:00:00 [facility] SARS-COV-2 COVID-19 2020-07-29 Completed Unive rsity of PFIZER VACCINE 00:00:00 [facility] SARS-COV-2 COVID-19 2020-07-29 Completed Unive rsity of PFIZER VACCINE 00:00:00 [place] [facility] SARS-COV-2 COVID-19 2020-07-29 Completed Unive rsity of PFIZER VACCINE 00:00:00 [facility] SARS-COV-2 COVID-19 2020-07-29 Completed Unive rsity of PFIZER VACCINE 00:00:00 [facility] SARS-COV-2 COVID-19 2020-07-29 Completed Unive rsity of PFIZER VACCINE 00:00:00 [facility] SARS-COV-2 COVID-19 2020-07-29 Completed Unive rsity of PFIZER VACCINE 00:00:00 [facility] SARS-COV-2 COVID-19 2020-07-29 Completed Unive rsity of PFIZER VACCINE 00:00:00 [facility] SARS-COV-2 COVID-19 2020-07-29 Completed Unive rsity of PFIZER VACCINE 00:00:00 [facility] SARS-COV-2 COVID-19 2020-07-29 Completed Unive rsity of PFIZER VACCINE 00:00:00 [facility] SARS-COV-2 COVID-19 2020-07-29 Completed Unive rsity of PFIZER VACCINE 00:00:00 [facility] SARS-COV-2 COVID-19 2020-07-01 Completed Unive rsity of PFIZER VACCINE 00:00:00 [facility] SARS-COV-2 COVID-19 2020-07-01 Completed Unive rsity of PFIZER VACCINE 00:00:00 [facility] SARS-COV-2 COVID-19 2020-07-01 Completed Unive rsity of PFIZER VACCINE 00:00:00 [facility] SARS-COV-2 COVID-19 2020-07-01 Completed Unive rsity of PFIZER VACCINE 00:00:00 [facility] SARS-COV-2 COVID-19 2020-07-01 Completed Unive rsity of PFIZER VACCINE 00:00:00 [facility] SARS-COV-2 COVID-19 2020-07-01 Completed Unive rsity of PFIZER VACCINE 00:00:00 [facility] SARS-COV-2 COVID-19 2020-07-01 Completed Unive rsity of PFIZER VACCINE 00:00:00 [facility] SARS-COV-2 COVID-19 2020-07-01 Completed Unive rsity of PFIZER VACCINE 00:00:00 [facility] SARS-COV-2 COVID-19 2020-07-01 Completed Unive rsity of PFIZER VACCINE 00:00:00 [facility] SARS-COV-2 COVID-19 2020-07-01 Completed Unive rsity of PFIZER VACCINE 00:00:00 [facility] SARS-COV-2 COVID-19 2020-07-01 Completed Unive rsity of PFIZER VACCINE 00:00:00 [facility] SARS-COV-2 COVID-19 2020-07-01 Completed Unive rsity of PFIZER VACCINE 00:00:00 [facility] SARS-COV-2 COVID-19 2020-07-01 Completed Unive rsity of PFIZER VACCINE 00:00:00 [facility] SARS-COV-2 COVID-19 2020-07-01 Completed Unive rsity of PFIZER VACCINE 00:00:00 [facility] SARS-COV-2 COVID-19 2020-07-01 Completed Unive rsity of PFIZER VACCINE 00:00:00 [facility] SARS-COV-2 COVID-19 2020-07-01 Completed Unive rsity of PFIZER VACCINE 00:00:00 [facility] SARS-COV-2 COVID-19 2020-07-01 Completed Unive rsity of PFIZER VACCINE 00:00:00 [facility] SARS-COV-2 COVID-19 2020-07-01 Completed Unive rsity of PFIZER VACCINE 00:00:00 [facility] SARS-COV-2 COVID-19 2020-07-01 Completed Unive rsity of PFIZER VACCINE 00:00:00 [facility] SARS-COV-2 COVID-19 2020-07-01 Completed Unive rsity of PFIZER VACCINE 00:00:00 [facility] SARS-COV-2 COVID-19 2020-07-01 Completed Unive rsity of PFIZER VACCINE 00:00:00 [facility] SARS-COV-2 COVID-19 2020-07-01 Completed Unive rsity of PFIZER VACCINE 00:00:00 [facility] SARS-COV-2 COVID-19 2020-07-01 Completed Unive rsity of PFIZER VACCINE 00:00:00 [facility] SARS-COV-2 COVID-19 2020-07-01 Completed Unive rsity of PFIZER VACCINE 00:00:00 [facility] SARS-COV-2 COVID-19 2020-07-01 Completed Unive rsity of PFIZER VACCINE 00:00:00 [facility] SARS-COV-2 COVID-19 2020-07-01 Completed Unive rsity of PFIZER VACCINE 00:00:00 [facility] SARS-COV-2 COVID-19 2020-07-01 Completed Unive rsity of PFIZER VACCINE 00:00:00 [facility] SARS-COV-2 COVID-19 2020-07-01 Completed Unive rsity of PFIZER VACCINE 00:00:00 [facility] SARS-COV-2 COVID-19 2020-07-01 Completed Unive rsity of PFIZER VACCINE 00:00:00 [facility] SARS-COV-2 COVID-19 2020-07-01 Completed Unive rsity of PFIZER VACCINE 00:00:00 [facility] SARS-COV-2 COVID-19 2020-07-01 Completed Unive rsity of PFIZER VACCINE 00:00:00 [facility] SARS-COV-2 COVID-19 2020-07-01 Completed Unive rsity of PFIZER VACCINE 00:00:00 [facility] Influenza High Dose 2019-03-03 Completed Unive rsity of 00:00:00 [facility] Influenza High Dose 2019-03-03 Completed Unive rsity of 00:00:00 [facility] Influenza High Dose 2019-03-03 Completed Unive rsity of 00:00:00 [facility] Influenza High Dose 2019-03-03 Completed Unive rsity of 00:00:00 [facility] Influenza High Dose 2019-03-03 Completed Unive rsity of 00:00:00 [facility] Influenza High Dose 2019-03-03 Completed Unive rsity of 00:00:00 [facility] Influenza High Dose 2019-03-03 Completed Unive rsity of 00:00:00 [facility] Influenza High Dose 2019-03-03 Completed Unive rsity of 00:00:00 [facility] Influenza High Dose 2019-03-03 Completed Unive rsity of 00:00:00 [facility] Influenza High Dose 2019-03-03 Completed Unive rsity of 00:00:00 [facility] Influenza High Dose 2019-03-03 Completed Unive rsity of 00:00:00 [facility] Influenza High Dose 2019-03-03 Completed Unive rsity of 00:00:00 [facility] Influenza High Dose 2019-03-03 Completed Unive rsity of 00:00:00 [facility] Influenza High Dose 2019-03-03 Completed Unive rsity of 00:00:00 [facility] Influenza High Dose 2019-03-03 Completed Unive rsity of 00:00:00 [facility] Influenza High Dose 2019-03-03 Completed Unive rsity of 00:00:00 [facility] Influenza High Dose 2019-03-03 Completed Unive rsity of 00:00:00 [facility] Influenza High Dose 2019-03-03 Completed Unive rsity of 00:00:00 [facility] Influenza High Dose 2019-03-03 Completed Unive rsity of 00:00:00 [facility] Influenza High Dose 2019-03-03 Completed Unive rsity of 00:00:00 [facility] Influenza High Dose 2019-03-03 Completed Unive rsity of 00:00:00 [facility] Influenza High Dose 2019-03-03 Completed Unive rsity of 00:00:00 [facility] Influenza High Dose 2019-03-03 Completed Unive rsity of 00:00:00 [facility] Influenza High Dose 2019-03-03 Completed Unive rsity of 00:00:00 [facility] Influenza High Dose 2019-03-03 Completed Unive rsity of 00:00:00 [facility] Influenza High Dose 2019-03-03 Completed Unive rsity of 00:00:00 [facility] Influenza High Dose 2019-03-03 Completed [facility] 00:00:00 [facility] Influenza High Dose 2019-03-03 Completed [facility] 00:00:00 [facility] Influenza High Dose 2019-03-03 Completed [facility] 00:00:00 [facility] Influenza High Dose 2019-03-03 Completed [facility] 00:00:00 [facility] Influenza High Dose 2019-03-03 Completed [facility] of 00:00:00 [facility] Influenza High Dose 2019-03-03 Completed [facility] of 00:00:00 [facility] Influenza High Dose 2019-03-03 Completed [facility] of 00:00:00 [facility] Influenza High Dose 2019-03-03 Completed [facility] of 00:00:00 [facility] Influenza High Dose 2019-03-03 Completed [facility] 00:00:00 [facility] Influenza High Dose 2019-03-03 Completed [facility] 00:00:00 [facility] Influenza High Dose 2019-03-03 Completed [facility] of 00:00:00 [facility] Influenza High Dose 2019-03-03 Completed [facility] 00:00:00 [facility] Influenza High Dose 2019-03-03 Completed [facility] of 00:00:00 [facility] Influenza High Dose 2019-03-03 Completed [facility] of 00:00:00 [facility] Influenza High Dose 2019-03-03 Completed [facility] 00:00:00 [facility] Influenza High Dose 2019-03-03 Completed [facility] 00:00:00 [facility] Influenza High Dose 2019-03-03 Completed [facility] 00:00:00 [facility] Influenza High Dose 2019-03-03 Completed [facility] 00:00:00 [facility] Influenza High Dose 2019-03-03 Completed [facility] 00:00:00 [facility] Influenza High Dose 2019-03-03 Completed [facility] of 00:00:00 [facility] Influenza High Dose 2019-03-03 Completed [facility] 00:00:00 [facility] Influenza High Dose 2019-03-03 Completed [facility] 00:00:00 [facility] Influenza High Dose 2019-03-03 Completed [facility] 00:00:00 [facility] Influenza High Dose 2019-03-03 Completed [facility] 00:00:00 [facility] Influenza High Dose 2019-03-03 Completed [facility] 00:00:00 [facility] Influenza High Dose 2019-03-03 Completed [facility] 00:00:00 [facility] Influenza High Dose 2019-03-03 Completed [facility] 00:00:00 [facility] Influenza High Dose 2019-03-03 Completed [facility] 00:00:00 [facility] Influenza High Dose 2019-03-03 Completed [facility] 00:00:00 [facility] Influenza High Dose 2019-03-03 Completed [facility] 00:00:00 [facility] Influenza High Dose 2019-03-03 Completed [facility] of 00:00:00 [facility] Influenza High Dose 2019-03-03 Completed [facility] 00:00:00 [facility] Influenza High Dose 2019-03-03 Completed [facility] 00:00:00 [facility] Influenza High Dose 2019-03-03 Completed [facility] 00:00:00 [facility] Influenza High Dose 2019-03-03 Completed [facility] 00:00:00 [facility] Influenza High Dose 2019-03-03 Completed [facility] 00:00:00 [facility] Influenza High Dose 2019-03-03 Completed [facility] 00:00:00 [facility] Influenza High Dose 2019-03-03 Completed [facility] 00:00:00 [facility] Influenza High Dose 2019-03-03 Completed [facility] 00:00:00 [facility] Influenza High Dose 2019-03-03 Completed [facility] 00:00:00 [facility] Influenza High Dose 2019-03-03 Completed [facility] of 00:00:00 [facility] Influenza High Dose 2019-03-03 Completed [facility] of 00:00:00 [facility] Influenza High Dose 2019-03-03 Completed [facility] 00:00:00 [facility] Influenza High Dose 2019-03-03 Completed [facility] of 00:00:00 [facility] Influenza High Dose 2019-03-03 Completed [facility] 00:00:00 [facility] Influenza High Dose 2019-03-03 Completed [facility] 00:00:00 [facility] Influenza High Dose 2019-03-03 Completed [facility] 00:00:00 [facility] Influenza High Dose 2019-03-03 Completed [facility] 00:00:00 [facility] Influenza High Dose 2019-03-03 Completed [facility] 00:00:00 [facility] Influenza High Dose 2017-03-21 Completed [facility] 00:00:00 [facility] Influenza High Dose 2017-03-21 Completed [facility] 00:00:00 [facility] Influenza High Dose 2017-03-21 Completed [facility] of 00:00:00 [facility] Influenza High Dose 2017-03-21 Completed [facility] of 00:00:00 [facility] Influenza High Dose 2017-03-21 Completed [facility] 00:00:00 [facility] Influenza High Dose 2017-03-21 Completed [facility] 00:00:00 [facility] Influenza High Dose 2017-03-21 Completed [facility] 00:00:00 [facility] Influenza High Dose 2017-03-21 Completed [facility] 00:00:00 [facility] Influenza High Dose 2017-03-21 Completed [facility] of 00:00:00 [facility] Influenza High Dose 2017-03-21 Completed [facility] of 00:00:00 [facility] Influenza High Dose 2017-03-21 Completed [facility] of 00:00:00 [facility] Influenza High Dose 2017-03-21 Completed [facility] 00:00:00 [facility] Influenza High Dose 2017-03-21 Completed [facility] of 00:00:00 [facility] Influenza High Dose 2017-03-21 Completed [facility] 00:00:00 [facility] Influenza High Dose 2017-03-21 Completed [facility] 00:00:00 [facility] Influenza High Dose 2017-03-21 Completed [facility] 00:00:00 [facility] Influenza High Dose 2017-03-21 Completed [facility] 00:00:00 [facility] Influenza High Dose 2017-03-21 Completed [facility] of 00:00:00 [facility] Influenza High Dose 2017-03-21 Completed [facility] of 00:00:00 [facility] Influenza High Dose 2017-03-21 Completed [facility] 00:00:00 [facility] Influenza High Dose 2017-03-21 Completed [facility] 00:00:00 [facility] Influenza High Dose 2017-03-21 Completed [facility] 00:00:00 [facility] Influenza High Dose 2017-03-21 Completed [facility] 00:00:00 [facility] Influenza High Dose 2017-03-21 Completed [facility] 00:00:00 [facility] Influenza High Dose 2017-03-21 Completed [facility] 00:00:00 [facility] Influenza High Dose 2017-03-21 Completed [facility] 00:00:00 [facility] Influenza High Dose 2017-03-21 Completed [facility] of 00:00:00 [facility] Influenza High Dose 2017-03-21 Completed [facility] 00:00:00 [facility] Influenza High Dose 2017-03-21 Completed [facility] 00:00:00 [facility] Influenza High Dose 2017-03-21 Completed [facility] 00:00:00 [facility] Influenza High Dose 2017-03-21 Completed [facility] 00:00:00 [facility] Influenza High Dose 2017-03-21 Completed [facility] 00:00:00 [facility] Influenza High Dose 2017-03-21 Completed [facility] 00:00:00 [facility] Influenza High Dose 2017-03-21 Completed [facility] 00:00:00 [facility] Influenza High Dose 2017-03-21 Completed [facility] 00:00:00 [facility] Influenza High Dose 2017-03-21 Completed [facility] 00:00:00 [facility] Influenza High Dose 2017-03-21 Completed [facility] 00:00:00 [facility] Influenza High Dose 2017-03-21 Completed [facility] 00:00:00 [facility] Influenza High Dose 2017-03-21 Completed [facility] 00:00:00 [facility] Influenza High Dose 2017-03-21 Completed [facility] 00:00:00 [facility] Influenza High Dose 2017-03-21 Completed [facility] 00:00:00 [facility] Influenza High Dose 2017-03-21 Completed [facility] 00:00:00 [facility] Influenza High Dose 2017-03-21 Completed [facility] 00:00:00 [facility] Influenza High Dose 2017-03-21 Completed [facility] 00:00:00 [facility] Influenza High Dose 2017-03-21 Completed [facility] 00:00:00 [facility] Influenza High Dose 2017-03-21 Completed [facility] 00:00:00 [facility] Influenza High Dose 2017-03-21 Completed [facility] 00:00:00 [facility] Influenza High Dose 2017-03-21 Completed [facility] 00:00:00 [facility] Influenza High Dose 2017-03-21 Completed [facility] 00:00:00 [facility] Influenza High Dose 2017-03-21 Completed [facility] 00:00:00 [facility] Influenza High Dose 2017-03-21 Completed [facility] 00:00:00 [facility] Influenza High Dose 2017-03-21 Completed [facility] 00:00:00 [facility] Influenza High Dose 2017-03-21 Completed [facility] 00:00:00 [facility] Influenza High Dose 2017-03-21 Completed [facility] 00:00:00 [facility] Influenza High Dose 2017-03-21 Completed [facility] 00:00:00 [facility] Influenza High Dose 2017-03-21 Completed [facility] 00:00:00 [facility] Influenza High Dose 2017-03-21 Completed [facility] 00:00:00 [facility] Influenza High Dose 2017-03-21 Completed [facility] 00:00:00 [facility] Influenza High Dose 2017-03-21 Completed [facility] 00:00:00 [facility] Influenza High Dose 2017-03-21 Completed [facility] 00:00:00 [facility] Influenza High Dose 2017-03-21 Completed [facility] 00:00:00 [facility] Influenza High Dose 2017-03-21 Completed [facility] 00:00:00 [facility] Influenza High Dose 2017-03-21 Completed [facility] 00:00:00 [facility] Influenza High Dose 2017-03-21 Completed [facility] 00:00:00 [facility] Influenza High Dose 2017-03-21 Completed [facility] 00:00:00 [facility] Influenza High Dose 2017-03-21 Completed [facility] 00:00:00 [facility] Influenza High Dose 2017-03-21 Completed [facility] 00:00:00 [facility] Influenza High Dose 2017-03-21 Completed [facility] 00:00:00 [facility] Influenza High Dose 2017-03-21 Completed [facility] 00:00:00 [facility] Influenza High Dose 2017-03-21 Completed [facility] 00:00:00 [facility] Influenza High Dose 2017-03-21 Completed [facility] 00:00:00 [facility] Influenza High Dose 2017-03-21 Completed [facility] 00:00:00 [facility] Influenza High Dose 2017-03-21 Completed [facility] 00:00:00 [facility] Influenza High Dose 2017-03-21 Completed [facility] 00:00:00 [facility] Influenza High Dose 2017-03-21 Completed [facility] 00:00:00 [facility] Vital Signs Vital Name Observation Time Observation Value Comments Source WEIGHT 2020-02-03 00:00:00 90.402 kg HEIGHT 2020-02-03 00:00:00 165.1 cm WEIGHT 2020-09-22 05:05:00 87.952 kg WEIGHT 2020-09-21 05:37:00 89.858 kg HEIGHT 2020-09-20 17:15:00 167.6 cm WEIGHT 2020-09-20 17:15:00 93.169 kg Systolic blood 2021-03-29 14:18:00 135 mm[Hg] [facility] pressure Medicine Diastolic blood 2021-03-29 14:18:00 63 mm[Hg] [facility] Heart rate 2021-03-29 14:18:00 79 /min [facility] Body temperature 2021-03-29 14:18:00 36.44 Yamileth [facility] Respiratory rate 2021-03-29 14:18:00 16 /min [facility] Body height 2021-03-29 14:18:00 165.1 cm [facility] Body weight 2021-03-29 14:18:00 89.812 kg [facility] BMI 2021-03-29 14:18:00 32.95 kg/m2 [facility] Systolic blood 2021-02-08 16:13:00 137 mm[Hg] [facility] pressure Medicine Diastolic blood 2021-02-08 16:13:00 72 mm[Hg] [facility] Heart rate 2021-02-08 16:13:00 82 /min [facility] Body temperature 2021-02-08 16:13:00 36.94 Yamileth [facility] Body height 2021-02-08 16:13:00 165.1 cm [facility] Body weight 2021-02-08 16:13:00 89.812 kg [facility] BMI 2021-02-08 16:13:00 32.95 kg/m2 [facility] Systolic blood 2020-12-26 19:17:00 183 mm[Hg] [facility] Diastolic blood 2020-12-26 19:17:00 75 mm[Hg] [facility] Heart rate 2020-12-26 19:17:00 69 /min [facility] Body height 2020-12-26 19:17:00 165.1 cm [facility] Body weight 2020-12-26 19:17:00 89.812 kg [facility] BMI 2020-12-26 19:17:00 32.95 kg/m2 [facility] Systolic blood 2020-10-25 21:00:00 147 mm[Hg] [facility] pressure [facility] Diastolic blood 2020-10-25 21:00:00 78 mm[Hg] [facility] pressure [facility] Heart rate 2020-10-25 21:00:00 70 /min [facility] Body weight 2020-10-25 21:00:00 91.173 kg [facility] BMI 2020-10-25 21:00:00 33.45 kg/m2 [facility] Systolic blood 2020-10-25 21:00:00 147 mm[Hg] [facility] pressure [facility] Diastolic blood 2020-10-25 21:00:00 78 mm[Hg] [facility] pressure [facility] Heart rate 2020-10-25 21:00:00 70 /min [facility] Body weight 2020-10-25 21:00:00 91.173 kg [facility] BMI 2020-10-25 21:00:00 33.45 kg/m2 [facility] Systolic blood 2020-10-25 17:59:00 128 mm[Hg] [facility] pressure Medicine Diastolic blood 2020-10-25 17:59:00 66 mm[Hg] [facility] Heart rate 2020-10-25 17:59:00 79 /min [facility] Respiratory rate 2020-10-25 17:59:00 16 /min [facility] Body height 2020-10-25 17:59:00 165.1 cm [facility] Body weight 2020-10-25 17:59:00 88.905 kg [facility] BMI 2020-10-25 17:59:00 32.62 [facility]m2 [facility] Oxygen saturation in 2020-10-25 17:59:00 98 /min [facility] blood by [facility] Pulse oximetry Systolic blood 2020-10-05 19:37:00 115 mm[Hg] [facility] Diastolic blood 2020-10-05 19:37:00 63 mm[Hg] [facility] Heart rate 2020-10-05 19:37:00 85 /min [facility] Respiratory rate 2020-10-05 19:37:00 16 /min [facility] Body height 2020-10-05 19:37:00 165.1 cm [facility] Body weight 2020-10-05 19:37:00 [facility]05 [facility] BMI 2020-10-05 19:37:00 32.62 kg/m2 [facility] WEIGHT 2020-09-22 05:05:00 87.952 kg WEIGHT 2020-09-21 05:37:00 89.858 kg HEIGHT 2020-09-20 17:15:00 167.6 cm WEIGHT 2020-09-20 17:15:00 93.169 kg Systolic blood 2020-09-20 18:50:00 114 mm[Hg] [facility] Diastolic blood 2020-09-20 18:50:00 56 mm[Hg] [facility] Heart rate 2020-09-20 18:50:00 85 /min [facility] Respiratory rate 2020-09-20 18:50:00 16 /min [facility] Body height 2020-09-20 18:50:00 165.1 cm [facility] Body weight 2020-09-20 18:50:00 92.987 kg [facility] BMI 2020-09-20 18:50:00 34.11 kg/m2 [facility] Oxygen saturation in 2020-09-20 18:50:00 95 /min [facility] Arterial blood by [facility] Pulse oximetry Systolic blood 2020-08-27 21:14:00 114 mm[Hg] [facility] pressure [facility] Diastolic blood 2020-08-27 21:14:00 64 mm[Hg] [facility] of pressure [facility] Heart rate 2020-08-27 21:14:00 98 /min [facility] Body temperature 2020-08-27 21:14:00 36.17 Yamileth [facility] Respiratory rate 2020-08-27 21:14:00 28 /min Univ ers[facility] of [facility] Oxygen saturation in 2020-08-27 21:14:00 16 /min University Arterial blood by [facility] Pulse oximetry Branch Body weight 2020-08-27 17:01:00 94.297 kg [facility] BMI 2020-08-27 17:01:00 34.59 kg/m2 [facility] Systolic blood 2020-08-26 18:38:00 114 mm[Hg] [facility] pressure [facility] Diastolic blood 2020-08-26 18:38:00 70 mm[Hg] [facility] pressure [facility] Heart rate 2020-08-26 18:38:00 91 /min [facility] Body temperature 2020-08-26 18:38:00 36.72 Yamileth [facility] Respiratory rate 2020-08-26 18:38:00 20 /min [facility] Body height 2020-08-26 18:38:00 165.1 cm [facility] Body weight 2020-08-26 18:38:00 94.348 kg [facility] BMI 2020-08-26 18:38:00 34.61 kg/m2 [facility] Oxygen saturation in 2020-08-26 18:38:00 96 /min [facility] of Arterial blood by [facility] Pulse oximetry Branch Systolic blood 2020-08-26 18:38:00 114 mm[Hg] [facility] pressure [facility] Diastolic blood 2020-08-26 18:38:00 70 mm[Hg] [facility] pressure [facility] Heart rate 2020-08-26 18:38:00 91 /min [facility] Body temperature 2020-08-26 18:38:00 36.72 Yamileth [facility] Respiratory rate 2020-08-26 18:38:00 20 /min [facility] Body height 2020-08-26 18:38:00 165.1 cm [facility] Body weight 2020-08-26 18:38:00 94.348 kg [facility] BMI 2020-08-26 18:38:00 34.61 kg/m2 [facility] Oxygen saturation in 2020-08-26 18:38:00 96 /min [facility] Arterial blood by [facility] Pulse oximetry Branch Systolic blood 2020-08-16 15:46:00 97 mm[Hg] [facility] pressure [facility] Diastolic blood 2020-08-16 15:46:00 53 mm[Hg] [facility] pressure [facility] Heart rate 2020-08-16 15:46:00 96 /min [facility] Body temperature 2020-08-16 15:46:00 37.06 Yamileth [facility] Respiratory rate 2020-08-16 15:46:00 18 /min [facility] Body height 2020-08-16 15:46:00 167.6 cm [facility] Body weight 2020-08-16 15:46:00 94.348 kg [facility] BMI 2020-08-16 15:46:00 33.57 kg/m2 [facility] Body temperature 2020-08-01 16:04:00 36.33 Yamileth [facility] Respiratory rate 2020-08-01 16:04:00 18 /min [facility] Body height 2020-08-01 16:04:00 167.6 cm [facility] Body weight 2020-08-01 16:04:00 92.625 kg [facility] BMI 2020-08-01 16:04:00 32.96 kg/m2 [facility] Systolic blood 2020-08-01 16:04:00 156 mm[Hg] [facility] pressure [facility] Diastolic blood 2020-08-01 16:04:00 62 mm[Hg] [facility] pressure [facility] Heart rate 2020-08-01 16:04:00 77 /min [facility] Systolic blood 2020-07-28 17:05:00 133 mm[Hg] [facility] pressure [facility] Diastolic blood 2020-07-28 17:05:00 64 mm[Hg] [facility] pressure [facility] Heart rate 2020-07-28 17:05:00 79 /min [facility] Body temperature 2020-07-28 17:05:00 36 Yamileth [facility] Respiratory rate 2020-07-28 17:05:00 16 /min [facility] Body height 2020-07-28 17:05:00 167.6 cm [facility] Body weight 2020-07-28 17:05:00 90.719 kg [facility] BMI 2020-07-28 17:05:00 32.28 kg/m2 [facility] Systolic blood 2020-06-23 16:17:00 128 mm[Hg] [facility] pressure [facility] Diastolic blood 2020-06-23 16:17:00 64 mm[Hg] [facility] pressure [facility] Heart rate 2020-06-23 16:17:00 80 /min [facility] Body temperature 2020-06-23 16:17:00 36.22 Yamileth [facility] Respiratory rate 2020-06-23 16:17:00 16 /min [facility] Body height 2020-06-23 16:17:00 167.6 cm [facility] Body weight 2020-06-23 16:17:00 90.719 kg [facility] BMI 2020-06-23 16:17:00 32.28 kg/m2 [facility] Systolic blood 2020-05-18 19:29:00 155 mm[Hg] [facility]ity of pressure [facility] Diastolic blood 2020-05-18 19:29:00 74 mm[Hg] [facility]ive [facility]ity of pressure [facility] Heart rate 2020-05-18 19:29:00 73 /min [facility] Respiratory rate 2020-05-18 19:29:00 18 /min Univ ersity of [facility] Body height 2020-05-18 19:29:00 167.6 cm [facility]i ty [facility] Body weight 2020-05-18 19:29:00 90.719 kg [facility] BMI 2020-05-18 19:29:00 32.28 kg/m2 [facility] ty [facility] Oxygen saturation in 2020-05-18 19:29:00 97 /min University of Arterial blood by [facility] Pulse oximetry Branch Systolic blood 2020-05-10 15:44:00 137 mm[Hg] Univer sity of pressure [facility] Diastolic blood 2020-05-10 15:44:00 62 mm[Hg] Unive rsity of pressure [facility] Heart rate 2020-05-10 15:44:00 75 /min [facility]i ty [facility] Body temperature 2020-05-10 15:44:00 36.44 Yamileth Univ ersity [facility] Body height 2020-05-10 15:44:00 167.6 cm [facility]i ty [facility] Body weight 2020-05-10 15:44:00 90.719 kg Universi ty of [facility] Branch BMI 2020-05-10 15:44:00 32.28 kg/m2 Universi ty of [facility] WEIGHT 2020-02-03 00:00:00 90.402 kg HEIGHT 2020-02-03 00:00:00 165.1 cm Systolic blood 2019-08-14 20:33:00 142 mm[Hg] Univer sity of pressure [facility] Diastolic blood 2019-08-14 20:33:00 67 mm[Hg] Unive rsity of pressure [facility] Heart rate 2019-08-14 20:32:00 77 /min [facility] Respiratory rate 2019-08-14 20:32:00 19 /min Univ ersity of [facility] Body height 2019-08-14 20:32:00 167.6 cm [facility] Body weight 2019-08-14 20:32:00 92.897 kg [facility] BMI 2019-08-14 20:32:00 33.06 kg/m2 [facility]i ty [facility] Oxygen saturation in 2019-08-14 20:32:00 98 /min University of Arterial blood by [facility] Pulse oximetry Branch Systolic blood 2019-07-29 19:02:00 156 mm[Hg] Univer sity of [facility] Diastolic blood 2019-07-29 19:02:00 69 mm[Hg] Unive rsity of [facility] [place] Heart rate 2019-07-29 19:02:00 73 /min [facility] [place] Body temperature 2019-07-29 19:02:00 36.72 Yamileth [facility] Respiratory rate 2019-07-29 19:02:00 18 /min Univ [facility] [place] Oxygen saturation in 2019-07-29 19:02:00 97 /min University of Arterial blood by [facility] Pulse oximetry Branch Body height 2019-07-27 19:00:00 167.6 cm [facility] Body weight 2019-07-27 19:00:00 90.719 kg [facility] BMI 2019-07-27 19:00:00 32.28 kg/m2 [facility] Systolic blood 2019-06-26 16:45:00 127 mm[Hg] [facility] pressure Medicine Diastolic blood 2019-06-26 16:45:00 61 mm[Hg] [facility] Heart rate 2019-06-26 16:45:00 71 /min [facility] Respiratory rate 2019-06-26 16:45:00 16 /min [facility] Body height 2019-06-26 16:45:00 165.1 cm [facility] Body weight 2019-06-26 16:45:00 92.987 kg [facility] BMI 2019-06-26 16:45:00 34.11 kg/m2 [facility] Oxygen saturation in 2019-06-26 16:45:00 97 /min [facility] Arterial blood by Medicine Pulse oximetry Systolic blood 2019-06-26 16:45:00 127 mm[Hg] [facility] pressure Medicine Diastolic blood 2019-06-26 16:45:00 61 mm[Hg] [facility] Heart rate 2019-06-26 16:45:00 71 /min [facility] Respiratory rate 2019-06-26 16:45:00 16 /min [facility] Body height 2019-06-26 16:45:00 165.1 cm [facility] Body weight 2019-06-26 16:45:00 92.987 kg [facility] BMI 2019-06-26 16:45:00 34.11 kg/m2 [facility] Oxygen saturation in 2019-06-26 16:45:00 97 /min [facility] Arterial blood by Medicine Pulse oximetry Systolic (mm Hg) 2017-03-03 18:00:00 Rafal rial Christopher Diastolic (mm Hg) 2017-03-03 18:00:00 Mem orial [facility] Systolic (mm Hg) 2017-03-03 17:00:00 Rafal rial [facility] Diastolic (mm Hg) 2017-03-03 17:00:00 Mem orial [place] Respitory Rate 2017-03-03 17:00:00 Memori al [place] Systolic (mm Hg) 2017-03-03 15:00:00 Rafal rial [facility] Diastolic (mm Hg) 2017-03-03 15:00:00 Mem orial [facility] Respitory Rate 2017-03-03 14:00:00 Mem[facility] [place] Respitory Rate 2017-03-03 11:00:00 [facility] [place] Temperature Oral (F) 2017-03-03 09:00:00 98.1 F [facility] Temperature Oral (F) 2017-03-03 00:00:00 97.9 F [facility] [place] Temperature Oral (F) 2017-03-02 13:00:00 97.9 F [facility] [place] Height 2017-02-26 20:24:00 165.1 cm [facility] Height 2017-02-26 16:15:00 165.1 cm Alin White BMI Calculated 2017-02-26 11:13:00 Kathryn dougherty Christopher Weight 2017-02-26 11:13:00 Alin White Height 2017-02-26 11:13:00 165.1 cm Alin White Weight 2017-02-25 19:59:00 [facility] BMI Calculated 2017-02-25 19:59:00 Kathryn Rojas Procedures Procedure Date / Time Performing Clinician Source Performed ASSIGNMENT OF BENEFITS 2021-08-02 19:53:04 Doctor Unassigned, [facility] POCT URINALYSIS DIPSTICK 2021-03-29 00:00:00 Yinka Desai [facility] EXTERNAL PROVIDER RECORDS 2021-01-18 05:01:00 Doctor Unasskg, [facility] EXTERNAL LAB A1C 2020-09-21 09:28:00 Doctor Unasskg, [facility] EXTERNAL LAB LIPID PANEL 2020-09-21 09:28:00 Doctor Unassigned, [facility] ELECTROCARDIOGRAM COMPLETE 2020-09-20 18:54:00 Yinka Jon [facility] XR CHEST 2 VW 2020-08-27 19:39:11 Rizwan, [facility] URINALYSIS 2020-08-27 19:35:00 Edgard Mallory [facility] LACTIC ACID WHOLE BLOOD 2020-08-27 17:48:00 Edgard Mallory [facility] TROPONIN I 2020-08-27 17:47:00 Rizwan [facility] BASIC METABOLIC PANEL (NA, 2020-08-27 17:47:00 Edgard Mallory [facility] K, CL, CO2, GLUCOSE, BUN, Medica l Branch CREATININE, CA) CBC WITH DIFF 2020-08-27 17:47:00 Edgard Mallory [facility] N-TERMINAL PRO-BNP 2020-08-27 17:47:00 Edgard Mallory [facility] EXTRA TUBE LT. BLUE 2020-08-27 17:47:00 Edgard Mallory [facility] [place] EXTRA TUBE ORANGE 2020-08-27 17:47:00 [facility] Medical Branch COVID-19 (ID NOW RAPID 2020-08-27 17:47:00 Edgard Mallory [facility] TESTING) Medical Branch COMP. METABOLIC PANEL 2020-08-26 20:32:00 Francisco Javier Castrejon [facility] ([id number]) Medical Branch CBC WITH DIFF 2020-08-26 20:32:00 Lucía [facility] POCT URINALYSIS AUTO 2020-08-16 15:45:00 Anaya Jo [facility] PATIENT QUESTIONNAIRE 2020-06-09 06:01:00 Doctor Unassigned, [facility] [place] Medical Branch CT ABDOMEN PELVIS W WO 2020-05-24 17:58:[address] [facility] CONTRAST Medical Branch CONSENT/REFUSAL FOR 2020-05-24 16:53:29 Doctor Unasskg, [facility] DIAGNOSIS AND TREATMENT [place] [facility] ASSIGNMENT OF BENEFITS 2020-05-24 16:53:07 Doctor Unassigned, Un [facility] [place] Medical Branch CONSENT/REFUSAL FOR 2020-05-24 16:50:32 Doctor Unamartha, [facility] DIAGNOSIS AND TREATMENT [place] [facility] ASSIGNMENT OF BENEFITS 2020-05-24 16:50:06 Doctor Unassigned, [facility] [place] Medical Branch PATIENT QUESTIONNAIRE 2020-05-18 06:01:00 Doctor Waylon, [facility] [place] Medical Branch AUTHORIZATION FOR RELEASE 2020-02-14 05:01:00 Doctor Waylon, [facility] [place] Medical Branch AUTHORIZATION FOR RELEASE 2020-02-03 05:01:00 Doctor Briseidaigned, [facility] [place] Medical Branch ASSIGNMENT OF BENEFITS 2019-07-24 19:48:01 Doctor Unassigned, [facility] [place] Medical Branch ELECTROCARDIOGRAM COMPLETE 2019-06-26 18:04:00 Yinka Jon [facility] CABG - Coronary artery [facility] [place] bypass graft CEA - Carotid [facility] [place] endarterectomy<sup>1</sup> Fusion<sup>2</sup> [facility] Polypectomy [facility] Plan of Care Planned Activity Planned Date Details Comments Source Future Scheduled 2022-02-08 US RENAL BILATERAL Expected: [employer] [facility] 00:00:00 [code = 06235] 02/08/2022, of Medicine Expires: 02/08/2022 Future Scheduled 2022-02-08 US RENAL BILATERAL Expected: [employer] [facility] 00:00:00 [code = 59369] 02/08/2022, of Medicine Expires: 02/08/2022 Future Scheduled 2021-06-29 US RENAL BILATERAL Expected: [employer] [facility] 00:00:00 [code = 70982] 06/29/2021, of Medicine Expires: 03/29/2022 Future Scheduled 2021-03-29 CYSTOSCOPY [code = 1 Occurrences [employer] [facility] 10:16:12 [id number]] starting of Medicine 03/29/2021 until 03/29/2022 Future Scheduled 2021-03-29 CULTURE, Ordered: [facility] [employer] Test 09:47:36 URINE/SENSITIVITY ON 03/29/2021 of Medi cine ALL [code = 26176-9] Future Scheduled 2021-03-29 TETANUS SHOT (ADULT) [employer] Test 09:45:45 [code = TETANUS SHOT of Medi cine (ADULT)] Future Scheduled 2021-03-29 ZOSTER VACCINE (1 of 2) [facility] Test 09:45:45 [code = ZOSTER VACCINE of Me dicine (1 of 2)] Future Scheduled 2021-03-29 MEDICARE AWV (Initial) [employer] [facility] 09:45:45 [code = MEDICARE AWV of Medi cine (Initial)] Future Scheduled 2021-03-29 FLU VACCINE > 6 MONTHS [employer] Test 09:45:45 [code = FLU VACCINE > 6 of M edicine MONTHS] Future Scheduled 2021-03-29 BMI FOLLOW UP PLAN [employer] [facility] 09:45:45 [code = BMI FOLLOW UP of Med icine PLAN] Future Scheduled 2021-03-29 FALL SCREEN [code = [employer] [facility] 09:45:45 FALL SCREEN] of Medicine Future Scheduled 2021-03-07 TETANUS SHOT (ADULT) [employer] Test 08:08:00 [code = TETANUS SHOT of Medi cine (ADULT)] Future Scheduled 2021-03-07 ZOSTER VACCINE (1 of 2) [employer] Test 08:08:00 [code = ZOSTER VACCINE of Me dicine (1 of 2)] Future Scheduled 2021-03-07 MEDICARE AWV (Initial) [employer] [facility] 08:08:00 [code = MEDICARE AWV of Medi cine (Initial)] Future Scheduled 2021-03-07 FALL SCREEN [code = [employer] [facility] 08:08:00 FALL SCREEN] of Medicine Future Scheduled 2021-03-07 FLU VACCINE > 6 MONTHS [employer] Test 08:08:00 [code = FLU VACCINE > 6 of M edicine MONTHS] Future Scheduled 2021-03-07 BMI FOLLOW UP PLAN [employer] [facility] 08:08:00 [code = BMI FOLLOW UP of Med icine PLAN] Future Scheduled 2021-03-07 TETANUS SHOT (ADULT) [employer] Test 08:08:00 [code = TETANUS SHOT of Medi cine (ADULT)] Future Scheduled 2021-03-07 ZOSTER VACCINE (1 of 2) [facility] Test 08:08:00 [code = ZOSTER VACCINE of Me dicine (1 of 2)] Future Scheduled 2021-03-07 MEDICARE AWV (Initial) [employer] [facility] 08:08:00 [code = MEDICARE AWV of Medi cine (Initial)] Future Scheduled 2021-03-07 FALL SCREEN [code = [employer] [facility] 08:08:00 FALL SCREEN] of Medicine Future Scheduled 2021-03-07 FLU VACCINE > 6 MONTHS [employer] Test 08:08:00 [code = FLU VACCINE > 6 of M edicine MONTHS] Future Scheduled 2021-03-07 BMI FOLLOW UP PLAN [employer] [facility] 08:08:00 [code = BMI FOLLOW UP of Med icine PLAN] Diagnostic Test 2021-02-05 US RENAL BILATERAL Expected: [employer] Pending 00:00:00 [code = 23278] 02/05/2021, of Medicine Expires: 10/05/2021 Future Scheduled 2020-12-30 BMI FOLLOW UP PLAN [employer] [facility] 11:06:36 [code = BMI FOLLOW UP of Med icine PLAN] Future Scheduled 2020-12-30 TETANUS SHOT (ADULT) [employer] Test 10:49:56 [code = TETANUS SHOT of Medi cine (ADULT)] Future Scheduled 2020-12-30 ZOSTER VACCINE (1 of 2) [employer] Test 10:49:56 [code = ZOSTER VACCINE of Me dicine (1 of 2)] Future Scheduled 2020-12-30 MEDICARE AWV (Initial) [employer] [facility] 10:49:56 [code = MEDICARE AWV of Medi cine (Initial)] Future Scheduled 2020-12-30 FALL SCREEN [code = [employer] [facility] 10:49:56 FALL SCREEN] of Medicine Future Scheduled 2020-12-30 FLU VACCINE > 6 MONTHS [employer] [facility] 10:49:56 [code = FLU VACCINE > 6 of M edicine MONTHS] Future Scheduled 2020-12-26 COMPRESSION STOCKING Ordered: [employer] Test 15:00:26 15-20MM [code = NOCPT] 12/26/2020 of Me dicine Future Scheduled 2020-10-28 TETANUS SHOT (ADULT) [employer] Test 09:19:59 [code = TETANUS SHOT of Medi cine (ADULT)] Future Scheduled 2020-10-28 BMI FOLLOW UP PLAN [employer] [facility] 09:19:59 [code = BMI FOLLOW UP of Med icine PLAN] Future Scheduled 2020-10-28 ZOSTER VACCINE (1 of 2) [facility] Test 09:19:59 [code = ZOSTER VACCINE of Me dicine (1 of 2)] Future Scheduled 2020-10-28 MEDICARE AWV (Initial) [employer] [facility] 09:19:59 [code = MEDICARE AWV of Medi cine (Initial)] Future Scheduled 2020-10-28 FALL SCREEN [code = [employer] [facility] 09:19:59 FALL SCREEN] of Medicine Future Scheduled 2020-10-28 FLU VACCINE > 6 MONTHS [employer] [facility] 09:19:59 [code = FLU VACCINE > 6 of M edicine MONTHS] Future Scheduled 2020-10-25 TETANUS SHOT (ADULT) [employer] Test 12:59:59 [code = TETANUS SHOT of Medi cine (ADULT)] Future Scheduled 2020-10-25 BMI FOLLOW UP PLAN [employer] [facility] 12:59:59 [code = BMI FOLLOW UP of Med icine PLAN] Future Scheduled 2020-10-25 ZOSTER VACCINE (1 of 2) [facility] Test 12:59:59 [code = ZOSTER VACCINE of Me dicine (1 of 2)] Future Scheduled 2020-10-25 MEDICARE AWV (Initial) [employer] [facility] 12:59:59 [code = MEDICARE AWV of Medi cine (Initial)] Future Scheduled 2020-10-25 FALL SCREEN [code = [employer] [facility] 12:59:59 FALL SCREEN] of Medicine Future Scheduled 2020-10-25 FLU VACCINE > 6 MONTHS [employer] [facility] 12:59:59 [code = FLU VACCINE > 6 of M edicine MONTHS] Future Scheduled 2020-10-05 CULTURE, Ordered: [facility] [employer] Test 15:16:48 URINE/SENSITIVITY ON 10/05/2020 of Medi cine ALL [code = 71558-5] Future Scheduled 1945 COVID-19 Vaccination MD [facility] Test 00:00:00 (1) [code = COVID-19 Vaccination (1)] Future Scheduled PNEUMOVAX >=65 (PPSV23) [facility] Test [code = PNEUMOVAX >=65 of Me dicine (PPSV23)] Future Scheduled PREVNAR >= 65 (PCV13) [employer] [facility] [code = PREVNAR >= 65 of Med icine (PCV13)] Future Scheduled FLU VACCINE > 6 MONTHS [employer] [facility] [code = FLU VACCINE > 6 of M edicine MONTHS] Future Scheduled ELECTROCARDIOGRAM [facility] Test COMPLETE [code = 21289] of M edicine Future Scheduled TETANUS SHOT (ADULT) [employer] [facility] [code = TETANUS SHOT of Medi cine (ADULT)] Future Scheduled BMI FOLLOW UP PLAN [facility] Test [code = BMI FOLLOW UP of Med icine PLAN] Future Scheduled Hepatitis C screening [employer] [facility] (procedure) [code = of Medic ine [id number]] Future Scheduled ZOSTER VACCINE (1 of 2) [facility] Test [code = ZOSTER VACCINE of Me dicine (1 of 2)] Future Scheduled MEDICARE AWV (Initial) [employer] [facility] [code = MEDICARE AWV of Medi cine (Initial)] Future Scheduled FALL SCREEN [code = [employer] FALL SCREEN] of Medicine Future Scheduled FLU VACCINE > 6 MONTHS [employer] Test [code = FLU VACCINE > 6 of M edicine MONTHS] Future Scheduled ELECTROCARDIOGRAM [facility] Test COMPLETE [code = 60032] of M edicine Future Scheduled MEDICARE AWV [code = [employer] [facility] MEDICARE AWV] of Medicine Future Scheduled TETANUS SHOT (ADULT) [employer] Test [code = TETANUS SHOT of Medi cine (ADULT)] Future Scheduled BMI FOLLOW UP PLAN [employer] [facility] [code = BMI FOLLOW UP of Med icine PLAN] Future Scheduled MEDICARE AWV (Initial) [employer] [facility] [code = MEDICARE AWV of Medi cine (Initial)] Future Scheduled FALL SCREEN [code = [employer] FALL SCREEN] of Medicine Encounters Start End Encounter Admission Attending Care Care Encounter Source Date/Time Date/Time Type Type Clinicians Facility Department ID 2021-04-02 Emergency [facility] [id number] [facility]-30 Out[facility] Heather GONZALEZ [facility] AMIRA [id number] Univers 10:58:04 WARNER [facility] 2021-03-08 Outpatient DANAY [facility] Surgery [id number] SLE 05:34:59 YINKA 2020-09-20 Inpatient MARTI ROBERTSONE [facility] Medicine [id number] SLE 17:04:00 NOVA 2020-05-25 Inpatient MARTI Peter, [facility] SURG [id number] [facility] 11:12:00 Lyndon [id number] [facility] 2019-09-08 Inpatient MARTI Guido, [facility] PAIN [id number] [facility] 08:30:00 Adrian [facility] 2019-08-24 Inpatient EL Guido, [facility] PAIN [id number] [facility] 10:00:00 Adrian [id number] [facility] 2021-11-03 2021-11-03 Outpatient Heather CONWAY [facility] [id number] Univers 15:15:00 15:15:00 RANDY [id number] [facility] 2021-11-03 2021-11-03 Outpatient Heather CONWAY [facility] [id number] Univers 15:15:00 15:15:00 RANDY [facility] 2021-08-04 2021-08-04 Outpatient JORDIN MCMULLEN [facility] [id number] Univers 08:30:00 08:30:00 JORDIN HER [id number] i ty [facility] 2021-08-04 2021-08-04 Outpatient JORDIN MCMULLEN [facility] [id number] Univers 08:30:00 08:30:00 JORDIN HER i ty of [facility] 2021-08-02 2021-08-02 Outpatient Heather ZORAIDA [facility] [id number] Univers 14:15:00 14:22:53 RANDY ity of [facility] 2021-08-02 2021-08-02 Outpatient Heather CONWAY [facility] [id number] Univers 14:15:00 14:15:00 RANDY [id number] ity of [facility] 2021-08-02 2021-08-02 Orders Doctor NIKIA [id number] Univers 00:00:00 00:00:00 Only Unassigned, TOMASA [id number] ity of [place] [facility] 4.2.7.2.686 Fletcher as [phone] [facility] 009 [place] 2021-05-05 2021-05-05 [facility] [id number] Univers 00:00:00 00:00:00 [facility] [id number] it y of [place] [id number] Fletcher as MANPREET?BLEA [phone] [address] MEDICAL OFFICE BUILDING 2021-04-21 2021-04-21 Telephone Jacky Cespedes [id number] Univers 00:00:00 00:00:00 [facility]ly [facility] [id number] i ty of CL[place] [id number] [facility] 089 [place] 2021-03-29 2021-03-29 Outpatient [facility] [id number] [facility] 08:17:19 13:24:18 Colleg e of Medicin e 2021-03-29 2021-03-29 Office AIDEE DESAI [id number] [facility] 08:17:43 10:22:40 Visit YINKA AMBULATOR [id number] College Y 0.2.7.2.686 of [id number] [facility] 300 e 2021-03-13 2021-03-13 [facility] [id number] Univers 00:00:00 00:00:00 [facility] [id number] it y of [place] [id number] Fletcher as Professio [phone] Va dical nal [address] [place] Office [facility] One 2021-02-08 2021-02-08 Office Giselle [facility] [id number] [facility] 10:34:39 10:49:39 Visit Yinka AMBULATOR [id number] College Y 0.2.7.2.686 of [id number] [facility] aleksandr 300 e 2021-02-08 2021-02-08 Outpatient [facility] [id number] [facility] 10:36:04 10:36:04 Colleg e of Medicin e 2021-01-27 2021-01-27 [facility] 1.2.840.114 [id number] Univers 00:00:00 00:00:00 [facility] [id number] it y of [place] [id number] [place] as Professio [phone] [facility] nal 044 [facility] One 2021-01-18 2021-01-18 Orders Doctor NIKIA 1.2.840.114 [id number] Univers 00:00:00 00:00:00 Only Unassigned, TOMASA [id number] ity of [place] [facility] 4.2.7.2.686 Fletcher as [phone] [facility] 009 Branch 2021-01-06 2021-01-06 [facility] 1.2.840.114 [id number] Univers 00:00:00 00:00:00 [facility] [id number] it y of [place] [id number] [place] as Professio [phone] Va dical nal 044 [facility] One 2020-12-26 2020-12-26 Office Tra [facility] 1.2.840.114 [id number] [facility] 12:01:07 12:31:07 Visit Martín AMBULATOR 350.1.13.21 College Lucy Y 0.2.7.2.686 of [id number] [facility] aleksandr 825 e 2020-12-26 2020-12-26 Outpatient [facility] [id number] [facility] 12:01:20 12:01:20 Stephanie e of Medicin e 2020-12-05 2020-12-05 Telephone Andres Natarajan [id number] Univers 00:00:00 00:00:00 Cindy Eng [id number] ity of [place] [id number] [facility] 086 Branch 2020-12-05 2020-12-05 Telephone Andres Natarajan [id number] 00:00:00 00:00:00 Cindy Eng [id number] [place] 4.2.7.2.686 [id number] 2020-11-25 2020-11-25 Outpatient Heather CONWAY [facility] [id number] Univers 13:15:00 13:15:00 RANDY [id number] [facility] 2020-11-25 2020-11-25 [facility] [id number] Univers 13:15:00 13:15:00 RANDY [facility] 2020-11-17 2020-11-17 [facility] 1.2.840.114 [id number] Univers 00:00:00 00:00:00 Randy Gonsalez 350.1.13.10 it y of [place] 4.2.7.2.686 Fletcher as Professio [phone] Va dical [address] One 2020-11-17 2020-11-17 [facility] 1.2.840.114 [id number] 00:00:00 00:00:00 [facility] [id number] Eddmitri [place] 4.2.7.2.686 Professio [phone] [address] One 2020-10-29 2020-10-29 [facility] 1.2.840.114 [id number] Univers 00:00:00 00:00:00 Randy [facility] [id number] it y of [place] [id number] Fletcher as Professio [phone] [address] Office [facility] One 2020-10-29 2020-10-29 [facility] 1.2.840.114 [id number] 00:00:00 00:00:00 Randy [facility] [id number] [place] [id number] Professio [phone] [place] [address] Office [facility] One 2020-10-27 2020-10-27 Outpatient R JACKY CESPEDES [facility] [id number] Univers 10:30:00 10:30:00 [id number] [facility] 2020-10-25 2020-10-25 Outpatient R ZORAIDA [facility] [id number] Univers 16:30:00 16:30:[id number] [place] [address] 2020-10-25 2020-10-25 [facility] [id number] Univers 16:30:00 16:30:00 [facility] 2020-10-25 2020-10-25 Office [facility] 1.2.840.114 [id number] [facility] 15:10:30 15:25:30 Visit [facility] [id number] it y of [place] 4.2.7.2.686 Fletcher as Professio [phone] [address] Office [facility] One 2020-10-25 2020-10-25 Office [facility] 1.2.840.114 [id number] 15:10:30 15:25:30 Visit Randy [facility] 350.1.13.10 Edward [place] 4.2.7.2.686 Professio [phone] [place] [address] Office [facility] One 2020-10-25 2020-10-25 Office AIDEE Jon 1.2.840.[id number] [place] [address] 12:47:43 13:07:43 Visit Yinka AMBULATOR 350.1.13.21 College Y 0.2.7.2.686 of [phone] Medi aleksandr 370 e 2020-10-05 2020-10-05 Office AIDEE Desai 1.2.840.114 [id number] 47 [facility] 13:17:57 15:21:32 Visit Yinka AMBULATOR 350.1.13.21 College Y 0.2.7.2.686 of [phone] Medi aleksandr 300 e 2020-09-29 2020-09-29 Outpatient R LISA [facility] [id number] N-20 Univers 11:00:00 11:00:00 BOGDAN [id number] [facility] 2020-09-28 2020-09-28 [facility] 1.2.840.114 [id number] Univers 00:00:00 00:00:00 [facility] 350.1.13.10 it y of [place] 4.2.7.2.686 Fletcher as Professio [phone] Va dical [address] Office [facility] One 2020-09-28 2020-09-28 [facility] 1.2.840.114 [id number] 00:00:00 00:00:00 [facility] 350.1.13.10 Edward [place] 4.2.7.2.686 Professio [phone] [address] One 2020-09-20 2020-09-20 Office AIDEE Jon 1.2.840.114 [id number] 21 [facility] 13:09:08 13:29:08 Visit Yinka AMBULATOR 350.1.13.21 College Y 0.2.7.2.686 of [phone] [facility] aleksandr 370 e 2020-09-15 2020-09-15 Out[facility] [id number] N-20 Univers 14:45:00 14:45:00 BOGDAN [id number] [facility] 2020-09-15 2020-09-15 [facility] [id number] Univers 14:45:00 14:45:00 BOGDAN [facility] 2020-09-15 2020-09-15 Telephone [facility] 1.2.840.114 [id number] Univers 00:00:00 00:00:00 Bogdan [place] 350.1.13.10 i ty of [place] [phone] [address] 2020-09-15 2020-09-15 [facility] 1.2.840.114 [id number] 00:00:00 00:00:00 Bogdan [place] 350.1.13.10 [place] 4.2.7.2.686 Professio [phone] [address] 2020-09-14 2020-09-14 Telephone [facility] 1.2.840.114 [id number] Univers 00:00:00 00:00:00 Bogdan [place] 350.1.13.10 i ty of [place].2.[place] [phone] [address] 2020-09-14 2020-09-14 [facility] 1.2.840.114 [id number] 00:00:00 00:00:00 Bogdan [place] 350.1.13.10 [place] 4.2.7.2.686 Professio [phone] [address] 2020-09-09 2020-09-09 [facility] 1.2.840.114 [id number] Univers 00:00:00 00:00:00 Bogdan [place] 350.1.13.10 i ty of [place] 4.2.7.2.[place] [phone] [address] 2020-09-09 2020-09-09 Telephone [facility] 1.2.840.114 [id number] 00:00:00 00:00:00 Bogdan [place] 350.1.13.10 [place] 4.2.7.2.686 Professio [phone] [address] 2020-09-02 2020-09-02 [facility] 1.2.840.114 [id number] Univers 00:00:00 00:00:00 [facility] 350.1.13.10 it y of [place] 4.2.7.2.686 Fletcher as Professio [phone] Va dical nal [address] [place] [address] One 2020-09-01 2020-09-01 Refill [facility] 1.2.840.114 [id number] Univers 00:00:00 00:00:00 [facility] 350.1.13.10 it y of Edward [place] 4.2.7.2.686 Fletcher as Professio [phone] Va dical nal [address] [place] [address] Building One 2020-09-01 2020-09-01 [facility] 1.2.840.114 [id number] 00:00:00 00:00:00 [facility] 350.1.13.10 Edward [place] 4.2.7.2.686 Professio [phone] [place] [address] Office Building One 2020-08-27 2020-08-27 Emergency Rizwan, TRAUMA 1.2.052.883 [id number] Univers 12:02:00 17:38:00 [facility] 350.1.13.10 ity of [place]2.[place] [phone] [address] 2020-08-26 2020-08-26 Bus Company Manager Ruth Ann, Ashley Lab Main [facility] 1.2.8 40.114 [id number] Univers 14:34:03 14:49:03 Visit Francisco Javier Castrejon 350.1.13.10 ity of [place].2.7.2.[place] [phone] Va dical nal 353 [facility] 2020-08-26 2020-08-26 Urgent Provider, [facility] 1.2.840.114 [id number] Univers 13:30:56 14:46:49 Care Francisco Javier Castrejon 350.1.13.10 ity of [place] 4.2.7.2.686 Fletcher as Professio [phone] Va dical nal [address] [place] Office Building One 2020-08-26 2020-08-26 Urgent Provider, [facility] 1.2.110.214 [id number] 13:30:56 14:46:49 Care [facility] 350.1.13.10 Care [place] 4.2.7.2.686 Professio [phone] nal 044 Office Building One 2020-08-26 2020-08-26 Outpatient R LUCÍA [facility] [id number] Univers 14:15:00 14:15:00 FRANCISCO JAVIER [facility] 2020-08-26 2020-08-26 Outpatient R [facility] [id number] -20 Univers 13:40:00 13:40:00 [id number] [facility] 2020-08-26 2020-08-26 Outpatient [facility] [id number] Univers 13:40:00 13:40:00 FRANCISCO JAVIER [facility] 2020-08-16 2020-08-16 Office [facility] 1.2.840.114 [id number] Univers 10:25:01 11:10:47 Visit Anaya [place] 350.1.13.10 [facility] 4.2.7.2.686 [place] Professio [phone] Va dical nal [address] 2020-08-16 2020-08-16 Outpatient R NIYA [facility] [id number] -20 Univers 11:00:00 11:00:00 ANAYA [id number] [facility] 2020-08-16 2020-08-16 [facility] [id number] Univers 11:00:00 11:00:00 ANAYA [facility] 2020-08-12 2020-08-12 Outpatient R [facility] [id number] -20 Univers 13:00:00 13:00:00 [id number] [facility] 2020-08-12 2020-08-12 Outpatient R LISA [facility] [id number] Univers 11:00:00 11:00:00 BOGDAN [facility] 2020-08-12 2020-08-12 Bus Company Manager 2, Adc Lab [facility] 1.2.840.114 [id number] Univers 10:43:15 10:58:15 Visit Bogdan Higgins [place] 350.1.13.10 ity of [place].2.7.2.[place] [phone] Va dical nal 353 [facility] 2020-08-01 2020-08-01 Office [facility] 1.2.840.114 [id number] Univers 08:30:20 10:32:01 Visit Rm, Adc Surg Spec Procedure [place] 3 50.1.13.10 ity of [place] 4.2.7.2.[place] [phone] [facility] dical [facility] 204 [facility] 2020-08-01 2020-08-01 Out[facility] [id number] N-20 Univers 09:30:00 09:30:00 [facility] [id number] [facility] 2020-08-01 2020-08-01 Outpatient [facility] [id number] Univers 09:30:00 09:30:00 [facility] 2020-07-29 2020-07-29 Bus Company Manager Ruth Ann, Adc Lab Main [facility] 1.2.8 40.114 [id number] Univers 11:31:09 11:46:09 Visit Jacky Cespedes [place] 350.1.13.10 ity of [place] 4.2.7.2.[place] Profess[place] [phone] [facility] 353 [facility] 2020-07-29 2020-07-29 Outpatient R [facility] [id number] -20 Univers 11:20:00 11:20:00 [id number] [facility] 2020-07-29 2020-07-29 Outpatient R [facility] [id number] Univers 11:20:00 11:20:00 JOHNNIE [facility] 2020-07-28 2020-07-28 Office Jacky Cespedes 1.2.840.114 [id number] Univers 09:43:27 11:32:37 Visit Tim [facility] 350.1.13.10 i ty of [facility] 4.2.7.2.[place] [phone] [address] 2020-07-28 2020-07-28 Outpatient R JACKY CESPEDES [facility] 216 904N-20 Univers 10:30:00 10:30:00 [id number] [facility] 2020-07-28 2020-07-28 Outpatient R JACKY CESPEDES [facility] [id number] Univers 10:30:00 10:30:00 [facility] 2020-07-26 2020-07-26 Refshanelle ConwayGU[facility] 1.2.840.114 [id number] Univers 00:00:00 00:00:00 [facility] 350.1.13.10 it y Lea [place] 4.2.7.2.686 Fletcher as Professio [phone] [address] Office Building One 2020-07-22 2020-07-22 Outpatient [facility] [id number] 4N-20 Univers 11:20:00 11:20:00 JOHNNIE [id number] [facility] 2020-07-22 2020-07-22 Outpatient [facility] [id number] Univers 11:20:00 11:20:00 JOHNNIE [facility] 2020-07-01 2020-07-01 Outpatient R [facility] [id number] 4N-20 Univers 11:00:00 11:00:00 JOHNNIE [id number] [facility] 2020-07-01 2020-07-01 Outpatient R [facility] [id number] Univers 11:00:00 11:00:00 JOHNNIE [facility] 2020-06-29 2020-06-29 Telephone Jacky Cespedes [facility] 1.2.840.11 [id number] Univers 00:00:00 00:00:00 Tim Bah HEALTH 350.1.13.10 i ty of [facility] 4.2.7.2.[place] [phone] [address] 2020-06-26 2020-06-26 Patient Luther [facility] 1.2.840.114 [id number] Univers 00:00:00 00:00:00 Outreach Suman PRIMARY 350.1.13.10 i ty of [facility] 4.2.7.2.686 [place] PAV[place]ION [phone] Va dical [address] 2020-06-23 2020-06-23 Office Jacky Cespedes [facility] 1.2.840.114 [id number] Univers 09:55:59 10:55:59 Visit Tim Olvin [facility] 350.1.13.10 i ty of CLINICS 4.2.7.2.[place] [phone] [facility] [address] [place] 2020-06-23 2020-06-23 Outpatient R RUBINA JACKY [facility] 216 904N-20 Univers 10:00:00 10:00:[id number] [facility] 2020-06-23 2020-06-23 Outpatient R RUBINA [facility] 033 [id number] Univers 10:00:00 10:00:[address] [facility] 2020-06-17 2020-06-17 Telephone [facility] 1.2.840.114 [id number] Univers 00:00:00 00:00:00 Fern[facility] 350.1.13.10 ity of Cancer 4.2.7.2.686 [place] - [phone] Med ical [facility] [address] 2020-06-16 2020-06-16 Refshanelle ConwayGUADAL[facility] 1.2.840.114 [id number] Univers 00:00:00 00:00:00 Randy [facility] 350.1.13.10 it y of [place] 4.2.7.2.686 [place] as Professio [phone] Va dical nal [address] [place] [address] One 2020-06-15 2020-06-15 Jericho [facility]andaGUADALUPE [facility] 1.2.840.114 [id number] Univers 00:00:00 00:00:00 Nikunj Health 350.1.13.10 it y of [place] 4.2.7.2.686 Fletcher as Professio [phone] Va dical nal [address] [place] [address] One 2020-06-15 2020-06-15 Jericho SilvaGU[facility]ALU[facility] 1.2.122.418 [id number] 2422 Univers 00:00:00 00:00:00 Fernanda Ruvalcaba [facility] 350.1.13.10 ity of [place].2.[place].2.[place] - [phone] Med ical [facility] [address] 2020-06-13 2020-06-13 Case [facility] 1.2.964.545 [id number] Univers 00:00:00 00:00:00 Management Fernanda Ruvalcaba [facility] 350.1.13.10 ity of [place]2.[place].2.[place] - [phone] Med ical [address] 2020-06-10 2020-06-10 Outpatient R [facility] [id number] -20 Univers 09:30:00 09:30:[id number] [facility] 2020-06-10 2020-06-10 Outpatient R [facility] [id number] Univers 09:30:00 09:30:[address] [facility] ity [facility] 2020-06-10 2020-06-10 Bus Company Manager Ruth Ann, Adc Lab Main [facility] 1.2.8 40.114 [id number] Univers 09:11:06 09:26:06 Visit Fernanda Silva 350.1.13. 10 ity of [place]2.[place].2.[place] Profess[place] [phone] [facility]ical [facility] 353 [facility] 2020-06-09 2020-06-09 Orders Doctor NIKIA 1.2.840.114 [id number] Univers 00:00:00 00:00:00 Only Unassigned, TOMASA 350.1.13.10 ity of [place] [facility] 4.2.7.2.686 Fletcher as [phone] [facility] [address] 2020-05-30 2020-05-30 Telephone [facility] 1.2.840.114 [id number] Univers 00:00:00 00:00:00 Fernanda Ruvalcaba Health 350.1.13.10 ity of [place].2.[place].2.[place] - [phone] Med ical MDA [address] 2020-05-24 2020-05-24 [facility] 1.2.840.114 [id number] Univers 10:50:00 23:59:00 Encounter Fernanda Payne 350.1.13.10 ity of [place] 4.2.7.2.686 [place] [phone] [facility] [address] 2020-05-24 2020-05-24 Bus Company Manager Ruth Ann, Adc Lab Main [facility] 1.2.8 40.114 [id number] Univers 11:10:46 11:25:46 Visit Fernanda Silva 350.1.13. 10 ity of [place] 4.2.7.2.686 [place] Profess[place] [phone] [facility]ical [facility] 353 [facility] 2020-05-24 2020-05-24 Outpatient R [facility] [id number] 4N-20 Univers 10:50:00 10:50:[id number] [facility] 2020-05-24 2020-05-24 Outpatient R [facility] [id number] Univers 00:00:00 00:00:[address] [facility] 2020-05-24 2020-05-24 Orders Doctor NIKIA 1.2.840.114 [id number] Univers 00:00:00 00:00:00 Only Unassigned, TOMASA 350.1.13.10 ity of [place] [facility] 4.2.7.2.686 Fletcher as [phone] [facility] [address] 2020-05-23 2020-05-23 Telephone [facility] 1.2.840.114 [id number] Univers 00:00:00 00:00:00 Fernanda Ruvalcaba Health 350.1.13.10 ity of [place].2.[place].2.686 [place] - [phone] Med ical [facility] [address] 2020-05-18 2020-05-18 Bus Company Manager Vls-Lab [facility] 1.2.840.114 [id number] Univers 14:22:15 14:37:15 Visit Fernanda Silva SPECIALTY 350.1.13 .10 ity of CARE [place].2.7.2.[place] CENTER AT [phone] Va damian VILLALBA 353 [facility] 2020-05-18 2020-05-18 [facility] 1.2.243.407 [id number] 0924 Univers 13:22:09 13:52:09 Visit Fernanda Gonsalez 350.1.13.10 ity of Cancer 4.2.7.2.686 [place] - [phone] Med ical MDA [address] [place] 2020-05-18 2020-05-18 Outpatient R RICARDO [facility] [id number] Univers 13:00:00 13:00:[address] [facility] 2020-05-18 2020-05-18 Outpatient [facility] 2169 04N-20 Univers 11:00:00 11:00:00 MARTINA [id number] [facility] 2020-05-18 2020-05-18 Outpatient R [facility] [id number] Univers 11:00:00 11:00:00 MARTINA [facility] 2020-05-18 2020-05-18 Orders Doctor NIKIA 1.2.840.114 [id number] Univers 00:00:00 00:00:00 Only Unassigned, TOMASA 350.1.13.10 ity of [place] [facility] 4.2.7.2.686 Fletcher as [phone] [address] 2020-05-16 2020-05-16 Telephone [facility] 1.2.840.114 [id number] Univers 00:00:00 00:00:00 [facility] 350.1.13.10 it y of [place] 4.2.7.2.686 Fletcher as Professio [phone] Va farazal nal [address] [place] Office [facility] One 2020-05-12 2020-05-12 Refill [facility] 1.2.840.114 [id number] Univers 00:00:00 00:00:00 [facility] 350.1.13.10 it y of [place] 4.2.7.2.686 Fletcher as Professio [phone] Va damian nal [address] [place] [address] One 2020-05-10 2020-05-10 Outpatient [facility] [id number] N-20 Univers 10:30:00 10:30:00 RANDY [facility] 2020-05-10 2020-05-10 Outpatient Heather CONWAY [facility] [id number] Univers 10:30:00 10:30:00 RANDY [facility] 2020-05-10 2020-05-10 Office [facility] 1.2.840.114 [id number] Univers 09:32:29 09:57:22 Visit [facility] 350.1.13.10 it y of [place] 4.2.7.2.686 Fletcher as Professio [phone] Va dical nal [address] [place] Office [facility] 2020-05-09 2020-05-09 Telephone [facility] 1.2.840.114 [id number] Univers 00:00:00 00:00:00 [facility] 350.1.13.10 it y of [place] 4.2.7.2.686 Fletcher as Professio [phone] Va dical nal [address] [place] Office Building [facility] 2020-05-02 2020-05-02 Refill [facility] 1.2.840.114 [id number] Univers 00:00:00 00:00:00 [facility] 350.1.13.10 it y of [place] 4.2.7.2.686 Fletcher as Professio [phone] Va dical nal [address] [place] Office [facility] 2020-04-25 2020-04-25 Outpatient TROY VillaseñorCL LABO [id number] 3-20 [facility] 19:01:00 19:01:00 Lyndon [id number] [facility] 2020-04-25 2020-04-25 Outpatient MARTI Villaseñor HCATO LABO [id number] 3-20 [facility] 08:00:00 08:00:00 Lyndon [id number] [facility] 2020-02-16 2020-02-16 Outpatient Heather CONWAY [facility] [id number] N-20 Univers 13:30:00 13:30:00 RANDY [id number] [facility] 2020-02-16 2020-02-16 Outpatient Heather CONWAY [facility] [id number] Univers 13:30:00 13:30:[address] [facility] 2020-02-14 2020-02-14 Orders Doctor NIKIA 1.2.840.114 [id number] Univers 00:00:00 00:00:00 Only Unassigned, TOMASA 350.1.13.10 ity of [place] [facility] 4.2.7.2.686 Fletcher as [phone] [address] 2020-02-04 2020-02-04 Out[facility] [id number] N-20 Univers 14:30:00 14:30:00 RANDY [id number] ity of [facility] 2020-02-04 2020-02-04 Outpatient R [facility] [id number] Univers 14:30:00 14:30:00 RANDY [facility] 2020-02-04 2020-02-04 Telemedici [facility] 1.2.840.114 [id number] Univers 08:26:55 08:41:55 ne Visit Randy Payne 350.1.13.10 ity of [place]2.7.2.[place] Profess[place] [phone] Va dical nal [address] [place] [address] 2020-02-03 2020-02-03 Orders Doctor NIKIA 1.2.840.114 [id number] Univers 00:00:00 00:00:00 Only Unassigned, TOMASA 350.1.13.10 ity of [place] [facility] 4.2.7.2.686 Fletcher as [phone] [address] 2020-01-23 2020-01-23 Refill [facility] 1.2.840.114 [id number] Univers 00:00:00 00:00:00 [facility] 350.1.13.10 it y of [place] 4.2.7.2.686 Fletcher as Professio [phone] Va dicdc nal [address] [place] [address] Building One 2019-11-19 2019-11-19 Outpatient R JORDIN HER [facility] 21 6904N-20 Univers 14:20:00 14:20:00 JORDIN HER [id number] i ty of [facility] 2019-11-13 2019-11-13 Outpatient R JORDIN HER [facility] 21 6904N-20 Univers 00:00:00 00:00:00 JORDIN HER [id number] i ty of [facility] 2019 2019 [facility] 1.2.840.114 [id number] Univers 00:00:00 00:00:00 Randy [place] 350.1.13.10 i ty of [place].2.7.2.686 [place] Profess[place] [phone] Va dical nal 044 [facility] 2019-10-05 2019-10-05 [facility] 1.2.840.114 [id number] Univers 00:00:00 00:00:00 [facility] 350.1.13.10 it y of [place] 4.2.7.2.686 Fletcher as Professio [phone] Va dical nal 044 [facility] 2019-09-12 2019-09-12 [facility] 1.2.840.114 [id number] Univers 00:00:00 00:00:00 [facility] 350.1.13.10 it y of [place] 4.2.7.2.686 Fletcher as Professio [phone] [address] 2019-08-24 2019-08-24 Outpatient Hay, HCATO PAIN [id number] -[id number] [facility] 10:00:00 10:00:00 Adrian [id number] [facility] 2019-08-14 2019-08-14 Office [facility] 1.2.840.114 [id number] Univers 14:46:45 16:13:45 Visit Lilymelaniejordon [place] 350.1.13.10 i ty of [place] 4.2.7.2.686 [place] Profess[place] [phone] Va dical nal 085 [facility] 2019-08-14 2019-08-14 Outpatient R JORDIN HER [facility] 21 6904N-20 Univers 15:00:00 15:00:00 JORDIN HER [id number] i ty of [facility] 2019-08-14 2019-08-14 Outpatient R JORDIN HER [facility] 10 [id number] Univers 15:00:00 15:00:00 JORDIN HER i ty of [facility] 2019-07-29 2019-07-29 [facility] 1.2.844.979 [id number] Univers 11:06:00 13:19:00 Encounter Warner Teresa Kerry 350.1.13.10 ity of [place]2.7.2.686 [place] Surgical [phone] [facility] [address] [place] 2019-07-24 2019-07-24 Bus 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 Manager Ruth Ann, Adc Lab Main [facility] 1.2.8 40.114 [id number] Univers 13:46:44 14:01:44 Visit Warner Gonzalez 350.1.13.1 0 ity of [place] 4.2.7.2.686 [place] Profess[place] [phone] Me dical nal [address] 2019-07-24 2019-07-24 Orders Doctor NIKIA 1.2.840.114 [id number] Univers 00:00:00 00:00:00 Only Unassigned, TOMASA 350.1.13.10 ity of [place] [facility] 4.2.7.2.686 Fletcher as [phone] [address] 2019-07-23 2019-07-23 Outpatient TROY GuidoTO PAIN [id number] [facility] 12:30:00 12:30:00 Adrian [id number] [facility] [place] [facility] 2019-07-06 2019-07-06 [facility] 1.2.840.114 [id number] Univers 00:00:00 00:00:00 [facility] 350.1.13.10 it y of [place] 4.2.7.2.686 Fletcher as Professio [phone] Va dical nal [address] Office Building One 2019-06-26 2019-06-26 Office AIDEE Jon 1.2.840.114 [id number] 10:00:09 10:20:09 Visit Yinka AMBULATOR 350.1.13.21 Y 0.2.7.2.686 [phone] [facility] 2019-06-26 2019-06-26 Office AIDEE Jon 1.2.840.114 [id number] [facility] 10:00:09 10:20:09 Visit Yinka AMBULATOR 350.1.13.21 College Y 0.2.7.2.686 [phone] [facility] aleksandr 370 e 2017-09-05 2017-09-05 Outpatient WILMAN VALVERDE [facility] [id number] [facility] 00:00:00 00:00:00 YINKA 2017-05-21 2017-05-21 Ambulatory nullFlavo [facility] [id number] Memoria 19:00:00 19:00:00 Pre-Reg r Urology [facility] 02 [facility] 2017-05-21 2017-05-21 [place] [id number] Memoria 19:00:00 19:00:00 Pre-Reg r Urology [facility] 2017-03-11 2017-03-11 Outpatient IE IE [id number] Memoria 10:00:00 10:00:[address] [facility] 2017-02-26 2017-03-03 Inpatient nullFlavo [facility] [id number] Memoria 10:32:00 21:00:00 [employer] 00 [facility] Results Test Description Test Time Test Comments Results Result Comments Source POCT URINALYSIS DIPSTICK 2021-03-29 00:00:00 Test Item Value Reference Range Interpretation Comme nts COLOR UA (test code = 5778-6) Yellow YELLOW/STRAW CLARITY UA (test code = 06392-5) Cloudy CLEAR GLUCOSE UA (test code = 5792-7) Negative NEGATIVE BILIRUBIN UA (test code = 5770-3) Negative NEGATIVE KETONES UA (test code = 50945-4) Negative NEGATIVE SPECIFIC GRAVITY UA (test code = 5811-5) 1.005-1.035 BLOOD UA (test code = 5794-3) Moderate 2+ NEGATIVE PH UA (test code = 5803-2) 5.0-9.0 PROTEIN UA (test code = 5804-0) Negative NEGATIVE UROBILINOGEN UA (test code = 5818-0) 0.02 E.U/DL NORMAL MG/DL LEUKOCYTE ESTERASE UA (test code = 5799-2) Trace NEGATIVE NITRITE UA (test code = 5802-4) Trace NEGATIVE REDUCING SUBSTANCES URINE (test code = 30373-9) [facility] [id number] 19:43:00Unlisted Reason for Exam - Click Yes and Enter Reason Below->YesUnlisted Reason for Exam->r/o k idney stone, h/o recurrent UTIPlease specify:->Renal Stone ProtocolWill this procedure require oral contrast?->No [facility] CABRERA JAMISON : 1940 Sex: MFINAL REPORT CT, ABDOMEN \\T\\ PELVIS, WITHOUT IV CONTRAST HISTORY: Abdominal distensionr/o kidney stone, h/o recurrent UTI COMPARISON: 08-02-2017 CTA chest abdomen pelvis TECHNIQUE: On a multirow-detector CT scanner, a volumetric scan was performed through the abdomenand pelvis without the administration of intravenous contrast. Dose modulation, iterative reconstruction, and/or weight- based adjustment of the mA/kV was utilized to reduce the radiation dose to as low as reasonably achievable. FINDINGS: Lack of intravenous contrast compromises evaluation of perfusion and for isodense lesions. Lung bases: Partially visualized aortic root repair. Coronary artery calcifications.Liver: Diffusely nodular in contour. No solid mass.Gallbladder and bile ducts: Unremarkable .Spleen: Unremarkable.Pancreas: Mildly atrophic.Adrenals: UnremarkableKidneys and ureters: Nonobstructive bilateral renal calculi, largest 5 mm in the interpolar region on the right. No hydronephrosis bilaterally. No ureteral calculi. Right sided mild urothelial thickening of the renal pelvis. Bowel: N ondilated bowel with no wall thickening. Appendix not visualized, but there is no stranding in the right lower quadrant.Bladder: Unremarkable.Reproductive organs: Unremarkable.Lymph nodes: Scattered subcentimeter short axis retroperitoneal lymph nodes, largest 9 mm short axis, nonspecific but likely re active.Peritoneum/retroperitoneum: Fat stranding in the retroperitoneum, mostly about the aorta at the infrarenal abdominal aortic aneurysm, similar to 08/02/2017.Vessels: Extensive atherosclerotic calcifications. An infrarenal abdominal aortic aneurysm measuring up to 4.8 cm in diameter, was up to 4.6 cm diameter 08/02/2017. 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 Diastasis rectus. Surgical clips in the bilateral groins. Bones: Median sternotomy wires. Osteopenia. IMPRESSION: Lack of intravenous contrast compromises evaluation of perfusion and for isodense lesions. 1.Small nonobstructive bilateral renal calculi. No hydronephrosis and no ureteral calculi. Circumferential mild urothelial thickening at the right renal pelvis, nonspecific, correlate with urinalysis. 2.A 4.8 cm diameter infrarenal abdominal aortic aneurysm, was 4.6 cm in diameter 08/02/2017, with surrounding fat stranding which has not changed from 08/02/2017. A follow-up examination is recommended every 6 months, and a vascular surgery consultation is recommended. Signed: [facility] Verified Date/Time: 09/22/2020 19:43:22 Reading Location: [address] TransitionalReading Room [employer]I [employer] [id number] 05:49:00 Test Item Value Reference Range Interpretation Comments SODIUM (BEAKER) 133 meq/L 136-145 L (test code = 381) POTASSIUM (BEAKER) 4.2 meq/L 3.5-5.1 (test code = 379) CHLORIDE (BEAKER) 101 meq/L 98-107 (test code = 382) CO2 (BEAKER) (test 25 meq/L 22-29 code = 355) BLOOD UREA NITROGEN 18 mg/dL 7-21 (BEAKER) (test code = 354) CREATININE (BEAKER) 1.04 mg/dL 0.57-1.25 (test code = 358) GLUCOSE RANDOM 145 mg/dL 70-105 H (BEAKER) (test code = 652) CALCIUM (BEAKER) 8.3 mg/dL 8.4-10.2 L (test code = 697) EGFR (BEAKER) (test 69 mL/min/1.73 ESTIMA DAMIAN GFR IS code = 1092) sq m NOT ACCURATE CREATININE CLEARANCE IN PREDICTING GLOMERULAR FILTRATION RATE . ESTIMATED GFR I S NOT APPLICABLE FOR DIALYSIS PATIEN TS. Chief Engineer ID - AARON MURINALYSIS W/ REFLEX URINE [id number] 18:28:00 Test Item Value Reference Range Interpretation Comments COLOR (BEAKER) (test code = 470) Yellow CLARITY (BEAKER) (test code = 469) Clear SPECIFIC GRAVITY UA (BEAKER) (test 1.014 1.001-1.035 code = 468) PH UA (BEAKER) (test code = 467) 6.0 5.0-8.0 PROTEIN UA (BEAKER) (test code = Negative Negative 464) GLUCOSE UA (BEAKER) (test code = 100 mg/dL Negative A 365) KETONES UA (BEAKER) (test code = Negative Negative 371) BILIRUBIN UA (BEAKER) (test code = Negative Negative 462) BLOOD UA (BEAKER) (test code = 461) Negative Negative NITRITE UA (BEAKER) (test code = Negative Negative 465) LEUKOCYTE ESTERASE UA (BEAKER) Trace Negative A (test code = 466) UROBILINOGEN UA (BEAKER) (test code 0.2 mg/dL 0.2-1.0 = 463) RBC UA (BEAKER) (test code = 519) 1 /HPF WBC UA (BEAKER) (test code = 520) 5 /HPF MUCUS (BEAKER) (test code = 1574) Rare SQUAMOUS EPITHELIAL (BEAKER) (test 1 /HPF code = 516) SOURCE(BEAKER) (test code = 2795) Chief Engineer ID - [auto]Chief Engineer ID - techSARS-COV2/RT-PCR ([facility]) 2020-09-21 11:50:00 Test Item Value Reference Range Interpretation Comments SARS-COV2/RT-PCR (test Negative Not Detected, Negative, code = 3766574) See external report for linked test SARS-COV-2 PERFORMING LAB [facility] (test code = 5510409) Negative result for this test determines that SARS-CoV-2 RNA was not present in the specimen above the Limit of Detection (LOD). However, Negative results do not preclude SARS-CoV-2 infection and should not be used as the sole basis for treatment or patient management decisions. Negative results mustbe combined with clinical observations, patient history, and epidemiological information. A false negative result may occur if a specimen is improperly collected, transported or handled. A false negative result should be considered if patient's recent exposures or clinical presentation indicate that COVID-19 (SARS-CoV-2) is likely and diagnostic tests for other causes of illness are negative. Re-testing should be considered in cases of suspected false negatives.The limit of detection for this assay is 800 copies/mL.This SARS CoV-2 test is a real-time RT-PCR test intended for the qualitative detection of nucleic acid from SARS-CoV-2 in a nasopharyngeal swab specimen collected from individuals suspected of COVID-19 by their healthcare provider.This test has not been Food and Drug Administration (FDA) cleared or approved. This is a modified version of an approved Emergency Use Authorization (EUA) and is in the process of review by the FDA. Once authorized by the FDA, the issued EUA will be effective until the declaration that circumstances exist justifying the authorization of the emergency use of in vitro diagnostic tests for detection and/or diagnosis of COVID-19 is terminated under Section 564(b)(2) of the Act or the EUA is revoked under Section 564(g) of the Act.Fact Sheet for Healthcare Providers:https://www.[employer]/sites/default/files/product/documents/Fact_Shee v_OF_Ksxqlavfm_Oczd_DDLL-OlA-8.pdfFact Sheet for Healthcare Patients:https://www.[employer]/sites/default/files/product/ documents/Pgyw_Umlrw_Xfamaafa_Occq_UCGR-KlL-3.pdfPerforming Laboratory:[facility], [place] [address]SLAZMPOYHY A1C 2020-09-21 07:58:00 Test Item Value Reference Range Interpretation Comments HEMOGLOBIN A1C (BEAKER) (test code = 8.0 % 4.3-6.1 H 368) HEPATIC FUNCTION [id number] 06:39:00 Test Item Value Reference Range Interpretation Comments TOTAL PROTEIN (BEAKER) (test code = 6.9 gm/dL 6.0-8.3 770) ALBUMIN (BEAKER) (test code = 1145) 3.0 g/dL 3.5-5.0 L BILIRUBIN TOTAL (BEAKER) (test code 0.6 mg/dL 0.2-1.2 = 377) BILIRUBIN DIRECT (BEAKER) (test 0.3 mg/dL 0.1-0.5 code = 706) ALKALINE PHOSPHATASE (BEAKER) (test 94 U/L 40-150 code = 346) AST (SGOT) (BEAKER) (test code = 15 U/L 5-34 353) ALT (SGPT) (BEAKER) (test code = 7 U/L 6-55 347) Chief Engineer ID Bakari HAMILTON WBASIC METABOLIC [id number] 06:39:00 Test Item Value Reference Range Interpretation Comments SODIUM (BEAKER) 136 meq/L 136-145 (test code = 381) POTASSIUM (BEAKER) 3.8 meq/L 3.5-5.1 (test code = 379) CHLORIDE (BEAKER) 105 meq/L 98-107 (test code = 382) CO2 (BEAKER) (test 22 meq/L 22-29 code = 355) BLOOD UREA NITROGEN 16 mg/dL 7-21 (BEAKER) (test code = 354) CREATININE (BEAKER) 1.07 mg/dL 0.57-1.25 (test code = 358) GLUCOSE RANDOM 151 mg/dL 70-105 H (BEAKER) (test code = 652) CALCIUM (BEAKER) 8.3 mg/dL 8.4-10.2 L (test code = 697) EGFR (BEAKER) (test 67 mL/min/1.73 ESTIMA DAMIAN GFR IS code = 1092) sq m NOT ACCURATE CREATININE CLEARANCE IN PREDICTING GLOMERULAR FILTRATION RATE . ESTIMATED GFR I S NOT APPLICABLE FOR DIALYSIS PATIEN TS. Chief Engineer ID Bakari HAMILTON [id number] 06:39:00 Test Item Value Reference Range Interpretation Comments MAGNESIUM (BEAKER) (test code = 1.9 mg/dL 1.6-2.6 627) Chief Engineer ID Bakari HAMILTON WLIPID [id number] 06:39:00 Test Item Value Reference Range Interpretation Comments TRIGLYCERIDES (BEAKER) (test code = 63 mg/dL 540) CHOLESTEROL (BEAKER) (test code = 113 mg/dL 631) HDL CHOLESTEROL (BEAKER) (test code 52 mg/dL = 976) LDL CHOLESTEROL CALCULATED (BEAKER) 48 mg/dL (test code = 633) Triglyceride Reference Range: Low Risk <150 Borderline 150-199 High Risk 200-499 Very High Risk >=500Cholesterol Reference Range: Low Risk <200 Borderline 200-239 High Risk >240HDL Cholesterol Reference Range: Low Risk >=60 High Risk <40LDL Cholesterol Reference Range: Optimal <100 Near Optimal 100-129 Borderline 130-159 High 160-189 Very High >=190 Chief Engineer ID - VICKEYNAYANAWHIGH SENSITIVITY TROPONIN [id number] 06:37:00 Test Item Value Reference Range Interpretation Comments HIGH SENSITIVITY 11 pg/ml See_Comment [Automated message] TROPONIN I (test code = The system which [id number]) generated this result transmitted ref erence range: <=35. Th e reference range was not used to int erpret this result as normal/abnormal . Chief Engineer ID - JOY WThe NITRILES LAB TECHNICIAN STAT High Sensitivity Troponin-I results should be used in conjunction with other diagnostic information such as ECG, clinical observations and information, and patient symptoms to aid in the diagnosis of IL.B-TYPE NATRIURETIC FACTOR (BNP)2020-09-21 06:15:00 Test Item Value Reference Range Interpretation Comments B-TYPE NATRIURETIC PEPTIDE (BEAKER) 290 pg/mL 0-100 H (test code = 700) Chief Engineer ID - ADRYAN LCBC W/PLT COUNT & AUTO [id number] 05:57:00 Test Item Value Reference Range Interpretation Comments WHITE BLOOD CELL COUNT (BEAKER) 6.9 K/ L 3.5-10.5 (test code = 775) RED BLOOD CELL COUNT (BEAKER) 3.32 M/ L 4.63-6.08 L (test code = 761) HEMOGLOBIN (BEAKER) (test code = 9.4 GM/DL 13.7-17.5 L 410) HEMATOCRIT (BEAKER) (test code = 29.8 % 40.1-51.0 L 411) MEAN CORPUSCULAR VOLUME (BEAKER) 89.8 fL 79.0-92.2 (test code = 753) MEAN CORPUSCULAR HEMOGLOBIN 28.3 pg 25.7-32.2 (BEAKER) (test code = 751) MEAN CORPUSCULAR HEMOGLOBIN CONC 31.5 GM/DL 32.3-36.5 L (BEAKER) (test code = 752) RED CELL DISTRIBUTION WIDTH 18.2 % 11.6-14.4 H (BEAKER) (test code = 412) PLATELET COUNT (BEAKER) (test 127 K/CU MM 150-450 L code = 756) MEAN PLATELET VOLUME (BEAKER) 11.4 fL 9.4-12.4 (test code = 754) NUCLEATED RED BLOOD CELLS 0 /100 WBC 0-0 (BEAKER) (test code = 413) NEUTROPHILS RELATIVE PERCENT 62 % (BEAKER) (test code = 429) LYMPHOCYTES RELATIVE PERCENT 16 % (BEAKER) (test code = 430) MONOCYTES RELATIVE PERCENT 19 % (BEAKER) (test code = 431) EOSINOPHILS RELATIVE PERCENT 2 % (BEAKER) (test code = 432) BASOPHILS RELATIVE PERCENT 0 % (BEAKER) (test code = 437) NEUTROPHILS ABSOLUTE COUNT 4.27 K/ L 1.78-5.38 (BEAKER) (test code = 670) LYMPHOCYTES ABSOLUTE COUNT 1.08 K/ L 1.32-3.57 L (BEAKER) (test code = 414) MONOCYTES ABSOLUTE COUNT (BEAKER) 1.32 K/ L 0.30-0.82 H (test code = 415) EOSINOPHILS ABSOLUTE COUNT 0.14 K/ L 0.04-0.54 (BEAKER) (test code = 416) BASOPHILS ABSOLUTE COUNT (BEAKER) 0.02 K/ L 0.01-0.08 (test code = 417) IMMATURE GRANULOCYTES-RELATIVE 1 % 0-1 PERCENT (BEAKER) (test code = 2801) RAD, CHEST, 1 VIEW, NON [id number] 01:44:00Reason for exam:->sobShould this be performed at the bedside?->Yes [facility] : 1940 Sex: MFINAL REPORT RAD, CHEST, 1 VIEW, NON DEPT INDICATION: sob COMPARISON: Radiograph the chest dated 09/20/2017 FINDINGS: Portable frontal view of the chest. IMPRESSION: Support Lines: None. Lungs and pleura: Coarse interstitial airspace opacities bilaterally are not significantly changed in the interval. No pleural effusion or lobar consolidation. No pneumothorax.Heart and mediastinum: Enlarged cardiac mediastinal silhouette may be exaggerated by technique. Atherosclerotic calcifications of the thoracic aorta. Postsurgical changes of cardiac valve and median sternotomy. Additional findings: Postsurgical changes of the cervical spine. Surgical clips over the rightneck. No acute osseous abnormality. Signed: [facility] Verified Date/Time: 01:44:20 EXTERNAL LAB LIPID [id number] 00:00:00 Test Item Value Reference Interpretation Comments Range External CHOL 113 mg/dL <200 (test code = 5037) External HDL 52 mg/dL See_Comment [Automated CHOL (test message] The code = 5038) system which generated this result transmitted reference range : >=60. The reference range was not used to interpret this result as normal/abnormal . External TRIG 63 mg/dL <150 (test code = 5039) External LDL 48 mg/dL <100 CHOL (test code = 93225-9) External VLDL 0-0 (test code = 5041) External HDLC 0.0-0.0 RATIO (test code = 5042) DARRYL (test Please see CareEverywhere code = DARRYL) Lipid panel (09/21/2020 4:28 AM CDT)Lipid panel (09/21/2020 4:28 AM CDT) Triglycerides 63 mg/dL [facility] ?Cholesterol 113 mg/dL [facility] ?HDL 52 mg/dL [facility] ?LDL Calculated 48 mg/dL [facility] ? Lipid panel (09/21/2020 4:28 AM CDT)SpecimenBlood Lipid panel (09/21/2020 4:28 AM CDT)Narrative Performed AtTriglyceride Reference Range:? ? Low Risk ? <150? ? Borderline ? ?150-199? ? High Risk ? ? 200-499? ? Very High Risk ?>=500? ? Cholesterol Reference Range:? ? Low Risk ? <200? ? Borderline ? ?200-239 ? ? High Risk ?>240? ? HDL Cholesterol Reference Range:? ? Low Risk ? >=60? ? High Risk ? <40? ? LDL Cholesterol Reference Range:? ? Optimal ?<100? ? Near Optimal ?100-129? ? Borderline ? ?130-159? ? High ?160-189? ? Very High ? ? ? >=190 ? ? ? Chief Engineer ID - JOY W? [facility]? Lipid panel (09/21/2020 4:28 AM CDT)Performing Organization Address [facility] Phone [facility]? [address] [place] [address]? [place] [address]? [phone]? Back to top [facility] [id number] 00:00:00 Test Item Value Reference Range Interpretation Comments External HGB A1C 8.0 % 4.3-6.1 A (test code = 4548-4) DARRYL (test code = DARRYL) Please see CareEverywhere Hemoglobin A1c (09/21/2020 4:28 AM CDT)Hemoglobin A1c (09/21/2020 4:28 AM CDT) Hemoglobin A1C 8.0 (H) 4.3 - 6.1 % [facility] ? Hemoglobin A1c (09/21/2020 4:28 AM CDT)SpecimenBlood Hemoglobin A1c (09/21/2020 4:28 AM CDT)Performing Organization Address [facility] Phone [facility]? [address] [place] [address]? [place] [address]? [phone]? Lab Interpretation Abnormal (test code = 26768-0) [facility] CampusHIGH SENSITIVITY TROPONIN [id number] 21:59:00 Test Item Value Reference Range Interpretation Comments HIGH SENSITIVITY 11 pg/ml See_Comment [Automated message] TROPONIN I (test code = The system which [id number]) generated this result transmitted ref erence range: <=35. Th e reference range was not used to int erpret this result as normal/abnormal . Chief Engineer ID - BSThe NITRILES LAB TECHNICIAN STAT High Sensitivity Troponin-I results should be used in conjunctionwith other diagnostic information such as ECG, clinical observations and information, and patient symptoms to aid in the diagnosis of IL.XR CHEST 2 [id number] 21:12:08 No acute cardiopulmonary abnormality. Preliminary Report Dictated by Resident: Kaiser Gonzalez MD., have reviewed this study and agree withthe above report.XR CHEST2 VW Comparison: 07/01/2017 History: cough Technique: PA and lateral radiographs Findings: The lungsare clear. No pleural effusion, focal consolidation, orpneumothorax is identified. Changes of median sternotomy with prior aortic valve replacement. Normalcardiomediastinal silhouette. Atheroscleroticcalcifications are seen inthe aortic arch. No acute osseous abnormality is present. Lower cervical spine ACDF. [facility], Radiant Results Inft User - 08/27/2020 4:13 PM CDTXR CHEST 2 VWComparison: 07/01/2017History: cough Technique: PA and lateral radiographsFindings:The lungs are clear. No pleural effusion, focal consolidation, orpneumothorax is identified. Changes of median sternotomy with prior aortic valve replacement. Normalcardiomediastinal silhouette. Atherosclerotic calcifications are seen inthe aortic arch.No acute osseous abnormality is present. Lower cervical spine ACDF.IMPRESSIONNo acute cardiopulmonary abnormality. Preliminary Report Dictated by Resident: Kaiser Pradhan MD., have reviewed this study and agree withthe above report.[facility] CampusTROPONIN [id number] 19:57:53 Test Item Value Reference Range Interpretation Comments TROPONIN I (test 0.007 ng/mL See_Comment [Automated code = [id number]) message] The system which generated this result transmitted reference range : <=0.034. The reference range was not used to interpret this result as normal/abnormal . DARRYL (test code = Equal or Less than DARRYL) 0.034 ng/ml---Normal ?Note: Cardiac troponin begins to rise 3-4 hours after the onset of ischemia. Repeat in 4-6 hours if the sample was drawn within 3-4 hours of the onset of the symptom and found normal. Between 0.035 and 0.120 ng/mL--- Borderline. Questionable myocardial injury or necrosis ? ?Note: Serial measurement may be necessary to confirm or exclude the diagnosis of myocardial injury or necrosis; Clinical correlation (symptoms, EKGs, imaging studies, and others) required; Repeat in 4-6 hours if clinically indicated. ? Equal or Higher than 0.121 ng/mL---Abnormal. Myocardial Injury or Necrosis Likely ? Biotin has been reported to cause a negative bias, interpret results relative to patient's use of biotin. ? Lab Interpretation Normal (test code = 52089-2) [facility] CampusUrinalysis2021-03-27 19:57:48 Test Item Value Reference Range Interpretation Comments APPEARANCE (test code = Clear Clear 2908575453) COLOR (test code = Yellow Yellow 3166420132) PH (test code = 4.8-8.0 8332844849) SP GRAVITY (test code = 1.003-1.030 1197471501) GLU U QUAL (test code = 50 mg/dL Normal A 2795989564) BLOOD (test code = Negative Negative 1107208973) KETONES (test code = Negative Negative 1003423274) PROTEIN (test code = Negative Negative 2887-8) UROBILIN (test code = Normal Normal 3159029666) BILIRUBIN (test code = Negative Negative 1943234730) NITRITE (test code = Negative Negative 1487633443) LEUK JOAQUÍN (test code = Negative Negative 9377812776) RBC/HPF (test code = See_Comment [Autom ated message] 3382500062) The system [email or web address] generated this result transmitted ref erence range: 0 - 3 HP F. The reference range was not used to int erpret this result as normal/abnormal . WBC/HPF (test code = See_Comment [Autom ated message] 0225840930) The system [email or web address] generated this result transmitted ref erence range: 0 - 5 HP F. The reference range was not used to int erpret this result as normal/abnormal . BACTERIA (test code = Negative Negative 3236957572) MUCOUS (test code = Slight Negative LPF A 9176023313) SQ EPITH (test code = <1 See_Comment [Auto mated message] 0040108931) The system [email or web address] generated this result transmitted ref erence range: <=2 HPF. The reference range was not used to int erpret this result as normal/abnormal . Lab Interpretation (test Abnormal code = 71134-7) [facility] CampusN-TERMINAL [id number] 18:24:10 Test Item Value Reference Range Interpretation Comments NT-proBNP (test code 536 pg/mL See_Comment H [Autom ated = 8330357200) message] The system which generated this result transmitted reference range : <=450. The reference range was not used to interpret this result as normal/abnormal . DARRYL (test code = DARRYL) Biotin has been reported to cause a negative bias, interpret results relative to patient's use of biotin. Lab Interpretation Abnormal (test code = 05692-1) [facility] CampusCOVID-19 (ID NOW RAPID TESTING)2020-08-27 18:16:47 Test Item Value Reference Range Interpretation Comments SARS-CoV-2 Rapid ID NOW Not Detected Not Detected (test code = 88629-3) DARRYL (test code = DARRYL) ID NOW COVID-19 Assay is an isothermal nucleic acid amplification test intended for the qualitative detection of nucleic acid from SARS-CoV-2 viral RNA in nasopharyngeal ([employer]) specimens. It is used under Emergency Use Authorization (EUA) by FDA. The limit of detection (LOD) of the assay is 125 Genome Equivalents/mL. A positive result is indicative of the presence of SARS-CoV-2 RNA. ?Clinical correlation with patient history and other diagnostic information is necessary to determine patient infection status. A negative (Not Detected) result does not preclude SARS-CoV-2 infection. In patients with clinical symptoms and other tests that are consistent with SARS-CoV-2 infection, negative results should be treated as presumptive negative and a new specimen should be tested with alternative PCR molecular test. Invalid: Please collect a new specimen for repeat patient testing if clinically indicated. Lab Interpretation Normal (test code = 81922-8) [facility] Metabolic Panel (NA, K, CL, CO2, GLUCOSE, BUN, CREATININE, CA)2020-08-27 18:12:46 Test Item Value Reference Range Interpretation Comments NA (test code = 138 mmol/L 135-145 2483340799) K (test code = 4.6 mmol/L 3.5-5.0 5985157457) CL (test code = 109 mmol/L 98-108 H 0700155922) CO2 TOTAL (test code = 25 mmol/L 23-31 6137509426) AGAP (test code = 2-16 3017141297) BUN (test code = 15 mg/dL 7-23 3317884066) GLUCOSE (test code = 146 mg/dL 70-110 H 1891650247) CREATININE (test code = 0.88 mg/dL 0.60-1.25 2674591972) CALCIUM (test code = 8.4 mg/dL 8.6-10.6 L 4252741753) eGFR Calculation mL/min/1.73m2 (Non-) (test code = 3407089169) eGFR Calculation mL/min/1.73m2 () (test code = 2645204718) DARRYL (test code = DARRYL) Association of Glomerular Filtration Rate (GFR) and Staging of Kidney Disease* + --+ --+ ------+| GFR (mL/min/1.73 m2) ?| With Kidney Damage ?| ?Without Kidney Damage+ --------+ --------+ +| ?>90 ?| ?Stage one ?| ? Normal ?+ ---+ ---+ -------+| ?60-89 ?| ?Stage two ?| ? Decreased GFR ? + --+ --+ ------+| ?30-59 ?| ?Stage three ?| ? Stage three ? + --+ --+ ------+| ?15-29 ?| ?Stage four ? | ? Stage four ?+ ---+ ---+ -------+| ?<15 (or dialysis) ? ?| ?Stage five ? | ? Stage five ?+ ---+ ---+ -------+ *Each stage assumes the associated GFR level has been in effect for at least three months. ?Stages 1 to 5, with or without kidney disease, indicate chronic kidney disease. Notes: Determination of stages one and two (with eGFR >59mL/min/1.73 m2) requires estimation of kidney damage for at least three months as defined by structural or functional abnormalities of the kidney, manifested by either:Pathological abnormalities or Markers of kidney damage (including abnormalities in the composition of the blood or urine or abnormalities in imaging tests). Lab Interpretation Abnormal (test code = 52767-3) [facility] with [id number] 18:03:46 Test Item Value Reference Range Interpretation Comments WBC (test code = See_Comment [Automated 6690-2) message] The sy stem which generated this result transmitted reference range : 4.20 - 10.70 10*3/?L. The reference range was not used to interpret this result as normal/abnormal . RBC (test code = See_Comment L [Automated 789-8) message] The sy stem which generated this result transmitted reference range : 4.26 - 5.52 10*6/?L. The reference range was not used to interpret this result as normal/abnormal . HGB (test code = 8.8 g/dL 12.2-16.4 L 718-7) HCT (test code = 28.8 % 38.4-49.3 L 4544-3) MCV (test code = 93.2 fL 81.7-95.6 787-2) MCH (test code = 28.5 pg 26.1-32.7 785-6) MCHC (test code = 30.6 g/dL 31.2-35.0 L 786-4) RDW-SD (test code = 58.0 fL 38.5-51.6 H 77163-7) RDW-CV (test code = 17.2 % 12.1-15.4 H 788-0) PLT (test code = See_Comment L [Automated 777-3) message] The sy stem which generated this result transmitted reference range : 150 - 328 10*3/ ?L. The reference r mono was not used to interpret this result as normal/abnormal . MPV (test code = 11.2 fL 9.8-13.0 71613-3) NRBC/100 WBC (test See_Comment [Automat ed code = 2033602193) message] The system which generated this result transmitted reference range : 0.0 - 10.0 /100 WBCs. The refer ence range was not u sed to interpret th is result as normal/abnormal . NRBC x10^3 (test code <0.01 See_Comment [Auto mated = [id number]) message] The s ystem which generated this result transmitted reference range : 10*3/?L. The reference range was not used to interpret this result as normal/abnormal . GRAN MAT (NEUT) % 60.8 % (test code = 770-8) IMM GRAN % (test code 0.30 % = 8826313189) LYMPH % (test code = 19.7 % 736-9) MONO % (test code = 16.5 % 5905-5) EOS % (test code = 2.4 % 713-8) BASO % (test code = 0.3 % 706-2) GRAN MAT x10^3(ANC) 3.78 10*3/uL 1.99-6.95 (test code = 6341591299) IMM GRAN x10^3 (test <0.03 0.00-0.06 code = 2548893893) LYMPH x10^3 (test code 1.23 10*3/uL 1.09-3.23 = 731-0) MONO x10^3 (test code 1.03 10*3/uL 0.36-1.02 H = 742-7) EOS x10^3 (test code = 0.15 10*3/uL 0.06-0.53 711-2) BASO x10^3 (test code <0.03 0.01-0.09 = 704-7) Lab Interpretation Abnormal (test code = 41455-9) [facility] Whole [id number] 17:57:49 Test Item Value Reference Range Interpretation Comments LACTIC ACID (test code = 1.96 mmol/L 0.50-2.20 0320237131) Lab Interpretation (test code = Normal 25088-6) [facility] MET[facility]OLIC PANEL ([id number] 21:21:05 Test Item Value Reference Range Interpretation Comments NA (test code = 139 mmol/L 135-145 4591523428) K (test code = 4.5 mmol/L 3.5-5.0 6092334014) CL (test code = 107 mmol/L 98-108 4961865354) CO2 TOTAL (test code = 26 mmol/L 23-31 2961465575) AGAP (test code = 2-16 1569038710) BUN (test code = 11 mg/dL 7-23 2142513619) GLUCOSE (test code = 140 mg/dL 70-110 H 5050756688) CREATININE (test code = 0.78 mg/dL 0.60-1.25 0562621474) TOTAL BILI (test code = 0.6 mg/dL 0.1-1.6 3831288672) CALCIUM (test code = 8.6 mg/dL 8.6-10.6 6006806582) T PROTEIN (test code = 7.1 g/dL 6.3-8.2 5281162537) ALBUMIN (test code = 3.4 g/dL 3.5-5.0 L 4130785965) ALK PHOS (test code = 106 U/L 34-122 4389685597) ALTv (test code = 8 U/L 5-50 1742-6) AST(SGOT) (test code = 21 U/L 13-40 6290696492) eGFR Calculation mL/min/1.73m2 (Non-) (test code = 1565353150) eGFR Calculation mL/min/1.73m2 () (test code = 4753827496) DARRYL (test code = DARRYL) Association of Glomerular Filtration Rate (GFR) and Staging of Kidney Disease* + --+ --+ ------+| GFR (mL/min/1.73 m2) ?| With Kidney Damage ?| ?Without Kidney Damage+ --------+ --------+ +| ?>90 ?| ?Stage one ?| ? Normal ?+ ---+ ---+ -------+| ?60-89 ?| ?Stage two ?| ? Decreased GFR ? + --+ --+ ------+| ?30-59 ?| ?Stage three ?| ? Stage three ? + --+ --+ ------+| ?15-29 ?| ?Stage four ? | ? Stage four ?+ ---+ ---+ -------+| ?<15 (or dialysis) ? ?| ?Stage five ? | ? Stage five ?+ ---+ ---+ -------+ *Each stage assumes the associated GFR level has been in effect for at least three months. ?Stages 1 to 5, with or without kidney disease, indicate chronic kidney disease. Notes: Determination of stages one and two (with eGFR >59mL/min/1.73 m2) requires estimation of kidney damage for at least three months as defined by structural or functional abnormalities of the kidney, manifested by either:Pathological abnormalities or Markers of kidney damage (including abnormalities in the composition of the blood or urine or abnormalities in imaging tests). Lab Interpretation Abnormal (test code = 29618-6) [facility] WITH [id number] 21:20:34 Test Item Value Reference Range Interpretation Comments WBC (test code = See_Comment [Automated 6690-2) message] The sy stem which generated this result transmitted reference range : 4.20 - 10.70 10*3/?L. The reference range was not used to interpret this result as normal/abnormal . RBC (test code = See_Comment L [Automated 789-8) message] The sy stem which generated this result transmitted reference range : 4.26 - 5.52 10*6/?L. The reference range was not used to interpret this result as normal/abnormal . HGB (test code = 9.5 g/dL 12.2-16.4 L 718-7) HCT (test code = 30.9 % 38.4-49.3 L 4544-3) MCV (test code = 93.4 fL 81.7-95.6 787-2) MCH (test code = 28.7 pg 26.1-32.7 785-6) MCHC (test code = 30.7 g/dL 31.2-35.0 L 786-4) RDW-SD (test code = 58.4 fL 38.5-51.6 H 87092-5) RDW-CV (test code = 17.1 % 12.1-15.4 H 788-0) PLT (test code = See_Comment L [Automated 777-3) message] The sy stem which generated this result transmitted reference range : 150 - 328 10*3/ ?L. The reference r mono was not used to interpret this result as normal/abnormal . MPV (test code = 11.0 fL 9.8-13.0 46197-8) IPF % (test code = 4.6 % 1.2-10.7 Platelet count 2264416899) measured by fluorescence method. NRBC/100 WBC (test See_Comment [Automat ed code = 7975871144) message] The system which generated this result transmitted reference range : 0.0 - 10.0 /100 WBCs. The refer ence range was not u sed to interpret th is result as normal/abnormal . NRBC x10^3 (test code <0.01 See_Comment [Auto mated = 8835024324) message] The s ystem which generated this result transmitted reference range : 10*3/?L. The reference range was not used to interpret this result as normal/abnormal . GRAN MAT (NEUT) % 68.6 % (test code = 770-8) IMM GRAN % (test code 0.40 % = 3387374522) LYMPH % (test code = 14.7 % 736-9) MONO % (test code = 13.2 % 5905-5) EOS % (test code = 2.8 % 713-8) BASO % (test code = 0.3 % 706-2) GRAN MAT x10^3(ANC) 4.73 10*3/uL 1.99-6.95 (test code = 8186603381) IMM GRAN x10^3 (test 0.03 10*3/uL 0.00-0.06 code = 0543673525) LYMPH x10^3 (test code 1.01 10*3/uL 1.09-3.23 L = 731-0) MONO x10^3 (test code 0.91 10*3/uL 0.36-1.02 = 742-7) EOS x10^3 (test code = 0.19 10*3/uL 0.06-0.53 711-2) BASO x10^3 (test code <0.03 0.01-0.09 = 704-7) Lab Interpretation Abnormal (test code = 78105-5) [facility] URINALYSIS, [id number] 15:46:00 Test Item Value Reference Range Interpretation Comments POCT U SP GRAV (test code = 1.020 mg/dl 1.005-1.025 3255) POCT PH U (test code = 3254) 6.5 mg/dl 5-8 POCT U LEUK EST (test code = negative Negative - Negative 3263) POCT U NIT (test code = 3262) negative Negative - Negative POCT U PROT (test code = negative Negative - Negative 3259) POCT U GLU (test code = 3256) Negative - Negative POCT U KETONE (test code = negative Negative - Negative 3258) POCT U UROBILI (test code = 0.2 mg/dl 0.2-1 3260) POCT U BILI (test code = negative Negative - Negative 3261) POCT U BLD (test code = 3257) negative Negative - Negative POCT U COLOR (test code = yellow 3266) POCT U APPEAR (test code = clear 3267) [facility] URINALYSIS, [id number] 15:46:00 Test Item Value Reference Range Interpretation Comments POCT U SP GRAV (test code = 1.020 mg/dl 1.005-1.025 3255) POCT PH U (test code = 3254) 6.5 mg/dl 5-8 POCT U LEUK EST (test code = negative Negative - Negative 3263) POCT U NIT (test code = 3262) negative Negative - Negative POCT U PROT (test code = negative Negative - Negative 3259) POCT U GLU (test code = 3256) Negative - Negative POCT U KETONE (test code = negative Negative - Negative 3258) POCT U UROBILI (test code = 0.2 mg/dl 0.2-1 3260) POCT U BILI (test code = negative Negative - Negative 3261) POCT U BLD (test code = 3257) negative Negative - Negative POCT U COLOR (test code = yellow 3266) POCT U APPEAR (test code = clear 3267) [facility] ABDOMEN PELVIS W WO [id number] 18:17:47CT Abdomen and Pelvis without and with intravenous contrast. CLINICAL HISTORY: Hematuria. DOSE: Up-to-date CT equipment and radiation dose reduction techniques wereemployed. CTDIvol: 12.31+12.32 mGy. DLP: 610+604 mGy-cm. TECHNIQUE : Contiguous axial imaging from the level of the lung basesthrough the pubic symphysis were performed initially without contrast andsubsequently after the uncomplicated administration of Omnipaque contrastmaterial. Coronal and sagittal reconstructions were obtained. Auto mAand/or iterative reconstruction were used to reduce radiation dose. FINDINGS: ? Lower lungs: S/P TAVR changes. LCx coronary atherosclerosis partlyvisualized. Visualized lungs are clear. No pleural effusion or pericardialeffusion. Liver, Gallbladder and Spleen: Liver is 16.8 cm in length and showedundulating serosal surface suggestive of chronic primary liver disease suchas cirrhosis without any focal liver lesions visualized. Spleen yunrpjcy20.8 x 7.5 cm. No calcified gallstones visualized. Biliaryducts and of thepancreatic duct appear of normal size. 2 cm size accessory splenule is seenalong thelower edge of the main spleen. Peritoneum: ?No free air or free fluid. No lymphadenopathy. Pancreas and Adrenals: ?Unremarkable pancreas and adrenal glands. Kidneys and Ureters: 2 stones are seen in the right kidney, each measuring6 mm, one of the stones is in the renal pelvis causing no significantobstruction. Mild dilatation of the collecting system of the right kidneyand renal pelvis noted, probably due to a kink in the proximal ureter.3 stones are seen in the left kidney, each measuring 1 mm 2 mm in size. Noleft-sided obstructive hydronephrosis or hydroureter. 5 mm cyst noted inthe anterior interpolar cortex of the left kidney. Vessels: Diffuse atherosclerosis with elongated and tortuous abdominalaorta resulting in tube kinking of the aortic lumen. There is also aorticaneurysm with maximum APand transverse diameter of 4.2 x 4.2 cm size.There is congestion of the fat surrounding the aneurysm, however, I do notsee any evidence of leaking of blood or contrast medium into theretroperitoneal space. Aneurysm begins just below the origins of renalarteries and extends up to the bifurcation. Retroperitoneum: No abnormal fluid or lymphadenopathy. Bowel: Constipation. Bladder and Reproductive Organs: Enlarged gland noted causing mild pressureat the base of the urinary bladder. Right lateral wall of the bladdershowed 15 mm diverticulum. 10 mm diverticulum is seen in the left lateralwall of the urinary bladder. There is only small amount of contrast mediumis seen in the dependent portion of the uri nary bladder. Bones: Exaggerated lumbar lordosis with mild levoscoliosis. Old trauma withfracture inthe upper plate with a prominent Schmorl's node in theappropriate of T12 and the shallow Schmorl's node in the lower plate ofT11. Soft tissues: There are adhesions of midline rectus sheath with multiplesmall fat-containing infraumbilical hernias. CONCLUSION:1. 2 stones in the right kidney, 6 mm in size with one stone in the rightrenal pelvis without causing any obstruction. There is, however, mildright-sided obstructive hydronephrosis and hydroureter secondary to a kinkin the proximal ureter.2. 3 small stones, 1 to 2 mm in size in the left kidney. No left-sidedobstructive hydronephrosis.3. 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 Congestion of the fat noted surrounding the aneurysm inthe retroperitoneum without any definite direct evidence of leakinganeurysm at this time.4. Liver shows cirrhotic morphology. No liver lesions. [facility], Radiant Results InftUser - 05/24/2020 12:18 PM CSTCT Abdomen and Pelvis without and with intravenous contrast.CLINICAL HISTORY: Hematuria.DOSE: Up-to-date CT equipment and radiation dose reduction techniques wereemployed.CTDIvol: 12.31+12.32 mGy. DLP: 610+604 mGy-cm.TECHNIQUE : Contiguous axial imaging from the level ofthe lung basesthrough the pubic symphysis were performed initially without contrast andsubsequently after the uncomplicated administration of Omnipaque contrastmaterial. Coronal and sagittal reconstructions were obtained. Auto mAand/or iterative reconstruction were used to reduce radiation dose.FINDINGS: Lower lungs: S/P TAVR changes. LCx coronary atherosclerosis partlyvisualized. Visualized lungs are clear. No pleural effusion or pericardialeffusion.Liver, Gallbladder and Spleen: Liver is 16.8 cm in length and showedundulating serosal surface suggestive of chronic primary liver disease suchas cirrhosis without any focal liver lesions visualized. Spleen buhumtsb14.8 x 7.5 cm. No calcified gallstones visualized. Biliary ducts and of thepancreatic duct appear of normal size. 2 cm size accessory splenule is seenalong the lower edge of the main spleen.Peritoneum: No free air or free fluid. No lymphadenopathy.Pancreas and Adrenals: Unremarkable pancreas and adrenal glands.Kidneys and Ureters: 2 st ones are seen in the right kidney, each measuring6 mm, one of the stones is in the renal pelvis causing no significantobstruction. Mild dilatation of the collecting system of the right kidneyand renal pelvis noted, probably due to a kink in the proximal ureter.3 stones are seen in the left kidney, each measuring 1 mm 2 mm in size. Noleft-sided obstructive hydronephrosis or hydroureter. 5 mm cyst noted inthe anterior interpolar cortex of the left kidney. Vessels: Diffuse atherosclerosis with elongated and tortuous abdominalaorta resulting in tube kinking of the aortic lumen. There is also aorticaneurysm with maximum AP and transverse diameter of 4.2 x 4.2 cm size.There is congestion of the fat surro unding the aneurysm, however, I do notsee any evidence of leaking of blood or contrast medium into theretroperitoneal space. Aneurysm begins just below the origins of renalarteries and extends up to the bifurcation.Retroperitoneum: No abnormal fluid or lymphadenopathy.Bowel: Constipation.Bladder and Reproductive Organs: Enlarged gland noted causing mild pressureat the base of the urinary bladder. Right lateral wall of the bladdershowed 15 mm diverticulum. 10 mm diverticulum is seen in the left lateralwall of the urinary bladder. There is only small amount of contrast mediumis seen in the dependent portion of the urinary bladder.Bones: Exaggerated lumbar lordosis with mild levoscoliosis. Old traumawithfracture in the upper plate with a prominent Schmorl's node in theappropriate of T12 and the shallow Schmorl's node in the lower plate ofT11.Soft tissues: There are adhesions of midline rectus sheath with multiplesmall fat-containing infraumbilical hernias.CONCLUSION:1. 2 stones in the right kidney, 6 mm in size with one stone in the rightrenal pelvis without causing any obstruction. There is, however, mildright-sided obstructive hydronephrosis and hydroureter secondary to a kinkin the proximal ureter.2. 3 small stones, 1 to 2 mm in size in the left kidney. No left-sidedobstructive hydronephrosis.3. 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 Congestion of the fat noted surrounding the aneurysm inthe retroperitoneum without any definite direct evidence of leakinganeurysm at this time.4. Liver shows cirrhotic morphology. No liver lesions.[facility] CampusCBC W/MANUAL [id number] 15:40:00 Test Item Value Reference Range Interpretation Comments WHITE BLOOD CELL (test code 6.2 K/mm3 5.7-10.5 N = WBC) RED BLOOD CELL (test code = 3.38 M/mm3 4.2-5.4 L RBC) HEMOGLOBIN (test code = HGB) 10.0 g/dL 12-16 L HEMATOCRIT (test code = HCT) 32.4 % 37-47 L MEAN CELL VOLUME (test code 96 fL 80-98 N = MCV) MEAN CELL HGB (test code = 29.6 pg 27-34 N MCH) MEAN CELL HGB CONCENTRATION 30.9 g/dL 30.8-34.1 N (test code = MCHC) RED CELL DISTRIBUTION WIDTH 14.6 % 11-16 N (test code = RDW) PLT (test code = PLT) 166 K/mm3 130-400 N MEAN PLATELET VOLUME (test 11.0 fL 8.9-12.1 N code = MPV) STAIN ACCEPTABILITY (test STAIN ACCEPTABLE code = STN ACCEPTABLE) CELLS COUNTED (test code = 100 >100 TCC) SEGMENTED NEUTROPHILS (test 64 % 50-65 N code = SEG) LYMPHOCYTE (test code = 21 % 20-40 N LYMPH) MONOCYTE (test code = MON) 10 % 2-9 H EOSINOPHIL (test code = EOS) 5 % 1-3 H NUCLEATED RED BLOOD CELL 0 % 0-0 N (test code = NRBC) CBC W/MANUAL [id number] 14:00:00 Test Item Value Reference Range Interpretation Comments WHITE BLOOD CELL (test code = WBC) 6.2 K/mm3 5.7-10.5 N RED BLOOD CELL (test code = RBC) 3.38 M/mm3 4.2-5.4 L HEMOGLOBIN (test code = HGB) 10.0 g/dL 12-16 L HEMATOCRIT (test code = HCT) 32.4 % 37-47 L MEAN CELL VOLUME (test code = MCV) 96 fL 80-98 N MEAN CELL HGB (test code = MCH) 29.6 pg 27-34 N MEAN CELL HGB CONCENTRATION (test 30.9 g/dL 30.8-34.1 N code = MCHC) RED CELL DISTRIBUTION WIDTH (test 14.6 % 11-16 N code = RDW) PLT (test code = PLT) 166 K/mm3 130-400 N MEAN PLATELET VOLUME (test code = 11.0 fL 8.9-12.1 N MPV) STAIN ACCEPTABILITY (test code = STN ACCEPTABLE) CELLS COUNTED (test code = TCC) >100 SEGMENTED NEUTROPHILS (test code = % 50-65 SEG) LYMPHOCYTE (test code = LYMPH) % 20-40 NUCLEATED RED BLOOD CELL (test 0 % 0-0 N code = NRBC) BASIC METABOLIC [id number] 14:00:00 Test Item Value Reference Range Interpretation Comments SODIUM (test code = 139 mmol/L 136-145 N NA) POTASSIUM (test code = 3.9 mmol/L 3.5-5.1 N K) CHLORIDE (test code = 104.0 mmol/L 98-107 N CL) CARBON DIOXIDE (test 25.9 mmol/L 21-32 N code = CO2) GLUCOSE (test code = 145 mg/dL 70-110 H GLU) BLOOD UREA NITROGEN 13 mg/dL 7-18 N (test code = BUN) GLOMERULAR FILTRATION 77.4 >60 Unit o f measure: RATE (test code = GFR) mL/mi n/1.73 [id number] Range:Healthy Adults >90 mL/min/1.73 m2 For Chronic Kidney Disease: St age II Mild Decrease in GFR 60-90 St age III Moderate Decrease in GFR 30-59 Stage IV Severe Decre ase in GFR 15- 29 Stage V Kidney Failure <15 CREATININE (test code 0.94 mg/dL 0.55-1.30 N = CREAT) CALCIUM (test code = 8.5 mg/dL 8.2-10.1 N CA) CBC W/AUTO [id number] 14:00:00 Test Item Value Reference Range Interpretation Comments WHITE BLOOD CELL (test 6.2 K/mm3 5.7-10.5 N code = WBC) RED BLOOD CELL (test 3.38 M/mm3 4.2-5.4 L code = RBC) HEMOGLOBIN (test code = 10.0 g/dL 12-16 L HGB) HEMATOCRIT (test code = 32.4 % 37-47 L HCT) MEAN CELL VOLUME (test 96 fL 80-98 N code = MCV) MEAN CELL HGB (test code 29.6 pg 27-34 N = MCH) MEAN CELL HGB 30.9 g/dL 30.8-34.1 N CONCENTRATION (test code = MCHC) RED CELL DISTRIBUTION 14.6 % 11-16 N WIDTH (test code = RDW) PLT (test code = PLT) 166 K/mm3 130-400 N MEAN PLATELET VOLUME 11.0 fL 8.9-12.1 N (test code = MPV) NEUTROPHIL % (test code 53.6 % 45-70 N = NT%) LYMPHOCYTE % (test code 23.3 % 20-40 N = LY%) MONOCYTE % (test code = 16.6 % 3-10 H MO%) EOSINOPHIL % (test code 5.6 % 1-5 H = EO%) BASOPHIL % (test code = 0.6 % 0.0-1.1 N BA%) NEUTROPHIL # (test code 3.32 K/mm3 2.00-7.50 N = NT#) LYMPHOCYTE # (test code 1.45 K/mm3 1.50-4.00 L = LY#) MONOCYTE # (test code = 1.03 K/mm3 0.2-0.8 H MO#) EOSINOPHIL # (test code 0.35 K/mm3 0.04-0.4 N = EO#) BASOPHIL # (test code = 0.04 K/mm3 0.02-0.10 N BA#) MANUAL DIFF REQUIRED YES MANUAL DIFF MANUAL DIFF (test code = MDIFF) REQUIRED . NUCLEATED RED BLOOD CELL 0 % 0-0 N (test code = NRBC) CBC W/MANUAL [id number] 14:00:00 Test Item Value Reference Range Interpretation Comments STAIN ACCEPTABILITY (test code = STN ACCEPTABLE) CELLS COUNTED (test code = TCC) >100 SEGMENTED NEUTROPHILS (test code = SEG) % 50-65 LYMPHOCYTE (test code = LYMPH) % 20-40 PROTHROMBIN [id number] 13:44:00 Test Item Value Reference Range Interpretation Comments PROTHROMBIN TIME 12.8 secs 10.1-12.5 H PATIENT (test code = PTP) INTERNATIONAL NORMAL 1.14 <2.0 RECOMME NDED THERAPEUTIC RATIO (test code = RANGE FOR ORAL INR) ANTICOAGULANTTR EATMENT: CONDI TION INRProphylaxis of venous thrombos is in 2.0 - 3.0 high-risk medic al or surgical patientsTreatme nt of venous thrombos is 2.0 - 3.0Prevention o f embolism 2.0 - 3.0Prevention o f recurrent embol ism, or 3.0 - 4. 5 patients with mechanical pros thetic intravascular v hamm IS PATIENT ON ANTICOAGULANTS ? YLIST ANTICOAGULANT/ANTI PLT MEDICATION : Plavix (Anti-PLT)Has Lab been notified if Patient is on Heparin Drip? NOIf Yes, order CBC, OCCULT BLOOD, PT every other day NTHROMBOPLASTIN TIME [id number] 13:44:00 Test Item Value Reference Range Interpretation Comments PTT ACTIVATED (test code = APTT) 33.4 secs 24.9-37.0 N IS PATIENT ON ANTICOAGULANTS ? YLIST ANTICOAGULANT/ANTI PLT MEDICATION : Plavix (Anti-PLT)Has Lab been notified if Patient is on Heparin Drip? NOIf Yes, order CBC, OCCULT BLOOD, PT every other day [id number] 13:47:00 Test Item Value Reference Range Interpretation Comments ACTIVATED CLOTTING TIME 147 sec : 74 -137 seconds, (BEAKER) (test code = Alexandru ne: TESTED AT 441) [facility] [address] [facility], [address]: Chief Engineer/Techni nanette ID = [id number] for MELONY NATARAJAN BASIC METABOLIC [id number] 07:56:00 Test Item Value Reference Range Interpretation Comments SODIUM (BEAKER) 136 meq/L 136-145 (test code = 381) POTASSIUM (BEAKER) 3.8 meq/L 3.5-5.1 (test code = 379) CHLORIDE (BEAKER) 106 meq/L 98-107 (test code = 382) CO2 (BEAKER) (test 20 meq/L 22-29 L code = 355) BLOOD UREA NITROGEN 12 mg/dL 7-21 (BEAKER) (test code = 354) CREATININE (BEAKER) 0.90 mg/dL 0.57-1.25 (test code = 358) GLUCOSE RANDOM 143 mg/dL 70-105 H (BEAKER) (test code = 652) CALCIUM (BEAKER) 8.8 mg/dL 8.4-10.2 (test code = 697) EGFR (BEAKER) (test 81 mL/min/1.73 ESTIMA DAMIAN GFR IS code = 1092) sq m NOT ACCURATE CREATININE CLEARANCE IN PREDICTING GLOMERULAR FILTRATION RATE . ESTIMATED GFR I S NOT APPLICABLE FOR DIALYSIS PATIEN TS. Chief Engineer ID - PIAYA LPROTHROMBIN [id number] 07:47:00 Test Item Value Reference Range Interpretation Comments PROTIME (BEAKER) (test code = 15.1 seconds 11.9-14.2 H 759) INR (BEAKER) (test code = 370) 1.22 <=5.90 Effective 10/29/2018: PT Reference Range ChangeNew: 11.9-14.2 Previous: 11.7- 14.7RECOMMENDED COUMADIN/WARFARIN INR THERAPY RANGESSTANDARD DOSE: 2.0-3.0 Includes: PROPHYLAXIS for venous thrombosis, systemic embolization; TREATMENT for venous thrombosis and/or pulmonary embolus.HIGH RISK: Target INR is2.5-3.5 for patients wiht mechanical heart valves.Within 24 hours, if on CoumadinCBC W/PLT COUNT & AUTO [id number] 07:36:00 Test Item Value Reference Range Interpretation Comments WHITE BLOOD CELL COUNT (BEAKER) 8.6 K/ L 3.5-10.5 (test code = 775) RED BLOOD CELL COUNT (BEAKER) 3.40 M/ L 4.63-6.08 L (test code = 761) HEMOGLOBIN (BEAKER) (test code = 11.3 GM/DL 13.7-17.5 L 410) HEMATOCRIT (BEAKER) (test code = 34.9 % 40.1-51.0 L 411) MEAN CORPUSCULAR VOLUME (BEAKER) 102.6 fL 79.0-92.2 H (test code = 753) MEAN CORPUSCULAR HEMOGLOBIN 33.2 pg 25.7-32.2 H (BEAKER) (test code = 751) MEAN CORPUSCULAR HEMOGLOBIN CONC 32.4 GM/DL 32.3-36.5 (BEAKER) (test code = 752) RED CELL DISTRIBUTION WIDTH 15.0 % 11.6-14.4 H (BEAKER) (test code = 412) PLATELET COUNT (BEAKER) (test 164 K/CU MM 150-450 code = 756) MEAN PLATELET VOLUME (BEAKER) 10.7 fL 9.4-12.4 (test code = 754) NUCLEATED RED BLOOD CELLS 0 /100 WBC 0-0 (BEAKER) (test code = 413) NEUTROPHILS RELATIVE PERCENT 65 % (BEAKER) (test code = 429) LYMPHOCYTES RELATIVE PERCENT 15 % (BEAKER) (test code = 430) MONOCYTES RELATIVE PERCENT 14 % (BEAKER) (test code = 431) EOSINOPHILS RELATIVE PERCENT 5 % (BEAKER) (test code = 432) BASOPHILS RELATIVE PERCENT 1 % (BEAKER) (test code = 437) NEUTROPHILS ABSOLUTE COUNT 5.61 K/ L 1.78-5.38 H (BEAKER) (test code = 670) LYMPHOCYTES ABSOLUTE COUNT 1.31 K/ L 1.32-3.57 L (BEAKER) (test code = 414) MONOCYTES ABSOLUTE COUNT (BEAKER) 1.21 K/ L 0.30-0.82 H (test code = 415) EOSINOPHILS ABSOLUTE COUNT 0.40 K/ L 0.04-0.54 (BEAKER) (test code = 416) BASOPHILS ABSOLUTE COUNT (BEAKER) 0.05 K/ L 0.01-0.08 (test code = 417) IMMATURE GRANULOCYTES-RELATIVE 1 % 0-1 PERCENT (BEAKER) (test code = 2801) - XR FLUORO FOR SPINE [id number] 14:02:00 Patient Name: CABRERA JAMISON Unit No: [id number] EXAMS: CPT CODE: [id number] XR FLUORO FOR SPINE INJ [id number] LUMBAR FACET INJECTION DIAGNOSTIC REFERRAL PHYSICIAN: None PREOPERATIVE DIAGNOSIS: Lumbar spondylosis without myelopathy or radiculopathy POSTOPERATIVE DIAGNOSIS: Lumbar spondylosis without myelopathy or radiculopathy PROCEDURE PERFORMED: Fluoroscopically guided needle localization of the bilateral L3-4 and bilateral L4-5 facets with arthrograms and diagnostic injection of local anesthetic and steroid. FINDINGS: All joints showed marked capsular degeneration and joint hypertrophy with foraminal synovial cyst extending off the superior recesses bilaterally at L3-4 and bilaterally at L4-5. Aspiration was positive for 0.4 mL of clear serous straw-colored fluid from the right L4- 5 facet. Provocation was negative. Anesthetic response was positive with the patient noting complete relief of his low back pain. Preinjection VAS 8/10. Postinjection VAS 0/10. Steroid response pending follow-up. ESTIMATED BLOOD LOSS: Minimal ANESTHESIA: TIVA COMPLICATIONS: None DETAILS OF PROCEDURE: After obtaining stable vital signs, informed consent and IV access patient was taken to the fluoroscopy suite where the patient was placed in a prone position with All extremities padded and appropriate monitors placed. The patient was sterilely prepped prepped and draped over the lumbosacral spine. Using fluoroscopic visualization, the insertion sites were marked for a pa ravertebral approach to each joint. Using standard technique, a 26 -gauge needle was insertedinto each joint capsule without paresthesias. At the right L4-5 facet, aspiration was positive for clear serous fluid. Isovue- 300 contrast 0.2 mL was injected to produce each arthrogram. There were no signs of intravascular or intrathecal uptake. Bupivicaine 0.75% 0.5 mL with Lidocaine 4% 0.25 ml and triamcinolone 12 mg was then injected incrementally into eachjoint. There were no signs of intravascular or intrathecal uptake. The patient's vital signsremained stable. All needles were removed and the patient was taken to the PACU in goodcondition. at 1402 Reported and signed by: Adrian Guido M.D. [facility] NAME: CABRERA JAMISON [address] [facility] PHYS: Adrian Glez MD [place], [place] [address] : 1940 AGE: 78 SEX: M LOC: YTiffanyYING PHONE #: [phone] EXAM DATE: 09/08/2019 STATUS: REG [facility] FAX #: [phone] RAD #: D/C DT PAGE 1 Signed Report (CONTINUED) Patient Name: CABRERA JAMISON Unit No: [id number] EXAMS: CPT CODE: [id number] XR FLUORO FOR SPINE INJ 01429 <Continued> CC: Adrian Guido MD Technologist: EMILIE VICTOR RT(R) Transcribed D/ (1402) tBIBIANA.[facility] [place] NAME: CABRERA JAMISON [address] [facility] PHYS: Adrian Glez MD [place], [place] [address] : [birth year] AGE: 78 SEX: M LOC: LUPE PHONE #: [phone] EXAM DATE: 09/08/2019 STATUS: REG [facility] FAX #: [phone] RAD #: D/C DT PAGE 2 Signed Report Patient Name: CABRERA JAMISON Unit No: [id number] EXAMS: CPT CODE: [id number] XR FLUORO FOR SPINE INJ 78704 <Continued> Orig Print D/T: S: 09/08/2019 (1405) [facility] [place] NAME: CABRERA JAMISON [address] [facility] PHYS: Adrian Glez MD [place], [place] [address] : 1940 AGE: 78 SEX: M LOC: LUPE PHONE #: [phone] EXAM DATE: 09/08/2019 STATUS: REG 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 FINDINGS: Tight flow seen through all foramen although good flow seen in the anterior epidural space with mild anterior epidural displacement across the L3-4 and L4-5 discs. Provocation with injection was negative. Anesthetic response was positive with thepatient noting complete relief of his low back and radiating pain. Preinjection VAS 8/10. Postinjection VAS 0/10. Steroid response pending follow-up. ESTIMATED BLOOD LOSS: Minimal ANESTHESIA: TIVA COMPLICATIONS: None DETAILS OF PROCEDURE: After obtaining stable vital signs, informed consent and IV access, with no contraindications, the patient was taken to the operating room and placed in a prone position withall extremities padded and appropriate monitors placed. The patient was sterilely prepped and draped over the lumbosacral spine. Using fluoroscopic visualization the insertion sites were marked for paravertebral approaches and using standard technique, a 25 gauge needle was advanced to the base of each pedicle without paresthesias. Isovue-300 contrast 0.2 mL of was injected incrementally with frequent negative aspirations to produce each epidurogram. Therewere no signs of intravascular or intrathecal uptake. Bupivicaine 0.75% 0.25 mL with lidocaine4% 0.25 mL and Decadron 5 mg was then incrementally injected with frequent negative aspir ations and again there were no signs of intravascular or intrathecal uptake. The needles were removed and the patient was taken to the PACU in good condition. at 170 Reported and signed by: Adrian Guido M.D. CC: Technologist: Elisha Mi(R) Transcribed D/ (2975) [facility] [place] NAME: CABRERA JAMISON [address] [facility] PHYS: Adrian Glez MD [place], [place] [address] : 1940 AGE: 78 SEX: M LOC: LUPE PHONE #: [phone] EXAM DATE: 07/23/2019 STATUS: REG [facility] FAX #: [phone] RAD #: D/C DT PAGE 1 Signed Report Patient Name: CABRERA JAMISON Unit No: [id number] EXAMS: CPT CODE: [id number] XR FLUORO FOR SPINE INJ 35109 <Continued> Orig Print D/T: S: 07/23/2019 (7544) [facility] [place] NAME: CABRERA JAMISON [address] [facility] PHYS: Adrian Glez MD [place], [place] [address] : 1940 AGE: 78 SEX: M LOC: LUPE PHONE #: [phone] EXAM DATE: 07/23/2019 STATUS: REG [facility] FAX #:[phone] RAD #: D/C DT PAGE 2 Signed ReportPET, CARDIAC PERFUSION MULTIPLE STUDIES, REST AND [id number] 14:00:00FINAL REPORT PROCEDURE: MYOCARDIAL PERFUSION PET IMAGING (Rest/Stress)CPT CODE: [id number] INDICATION: Preoperative evaluation prior to AAA repair, known CAD CARDIOVASCULAR PROFILE:CAD History: Known CADSymptoms: NoneRisk Factors: Hypertension, hyperlipidemia, strokeBMI: 31Medications: Aspirin, Plavix, lisinopril, Crestor, nebivolol STRESS PROTOCOL:Pharmacologic stress was achieved with a 10-second intravenous infusion of regadenoson 0.4 mg. The radiopharmaceutical was lpwlawhhixry75 seconds after the start of the regadenoson infusion. IMAGING PROTOCOL:Limited low-dose CT imagingwas performed for attenuation correction. 40.0 mCi of Rb-82 chloride was injected intravenously at rest, and gated PET images were obtained. Then, 40.0 mCi of Rb- 82 chloride was injected intravenously at peak stress, and gated PET images were obtained. Image quality is good. REST FINDINGS:HR: 81/minBP: 157/68 mmHgPrelim. EKG: Normal sinus rhythm, PVCs.Perfusion: There is a mild severity perfusion defect of the zkrmb-hi-kgvmse inferolateral and anterolateral LV segment(s).Wall Motion: There is mild hypokinesis of the lateral LV wall. (LVEF 57%).LV Volume: Normal.RV Volume: Normal. STRESS FINDINGS:HR: 96/min (67% of MPHR)BP: 127/43 mmHgPrelim. EKG: No ischemic changes.Symptoms: None (treatment not re quired).Perfusion: There is a moderate severity perfusion defect of the zkpez-iw-skgrbo inferolateral and anterolateral LV segment(s).Wall Motion: Moderate hypokinesis of the lateral LV wall (LVEF 49%).LV Volume: Not significantly changed from rest. IMPRESSION:1. Abnormal study.2. Abnormal myocardial perfusion. There is a large size, moderate severity, partially reversible perfusion abnormality in the xogac-ln-vixpgl inferolateral and anterolateral LV.3. There is mild hypokinesis of the lateral LV at rest with normal resting LVEF, which worsens with pharmacologic stress. There is a drop in the leftventricular ejection fraction with stress.4. Normal extracardiac tracer distribution.5. There is no prior study for comparison. Signed: Burt Melton MDReport Verified Date/Time: 06/25/2019 14:00:51 Reading Location: [address] Reading Room - XR L-SPINE W/BEND [id number] 16:23:00 Patient Name: CABRERA JAMISON Unit No: [id number] EXAMS: CPT CODE: [id number] XR L-SPINE W/BEND VIEW 23771 COMPARISON: None available. IMAGES PROVIDED: 7 views of the cervical spine and 7 views of the lumbar spine FINDINGS: Cervical spine: C3-C6 interbody fusion is demonstrated as well as C6-C7 ACDF hardware. Marked disc degeneration is seen at C6-C7 without evidence of osseous fusion. No abnormal motion is seen with flexion/extension. No acute fracture. Lower cervical facet hypertrophy is noted. Surgical clips are seen within the neck. Sternotomy wires are present. Visualized lungs are clear. Lumbar spine: 5 lumbar type vertebrae are present. Grade 1 retrolisthesis of L5-S1. No dyn amic motion is seen with flexion/extension. No acute fracture. Mild multilevel disc degeneration is noted as well as mid to lower lumbar facet hypertrophy. Hip joints are maintained. Osteopenia is present. IMPRESSION: 1. Postoperative changes of the cervical spine. No evidence of dynamic instability. 2. Multilevel lumbar spondylosis without evidence of dynamic instability. at 1820 Reported and signed by: Uriah Nino M.D. CC: Adrian Guido MD Technologist: RT Gisel.(R) Transcribed D/ (3566) Nery.[facility] NAME: CABRERA JAMISON [address] [facility] PHYS: Adrian Glez MD : 1940 AGE: 78 SEX: M [place], [place] [address] LOC: Y.MRI PHONE #: [phone] EXAM DATE: 03/31/2019 STATUS: DEP CLI FAX #: [phone] RAD #: D/C DT PAGE 1 Signed Report Patient Name: CABRERA JAMISON Unit No: [id number] EXAMS: CPT CODE: [id number] XR L-SPINE W/BEND VIEW 11021 <Continued> Orig Print D/T: S: 04/01/2019 (0832) [facility] NAME: CABRERA JAMISON [address] [facility] PHYS: Adrian Glez MD : 1940 AGE: 78 SEX: M [place], [place] [address] LOC: Y.MRI PHONE #: [phone] EXAM DATE: 03/31/2019 STATUS: [facility] CLI FAX #: [phone] RAD #: D/C DT PAGE 2 Signed Report- XR C-SPINE 6+[id number] 16:23:00 Patient Name: CABRERA JAMISON Unit No: [id number] EXAMS: CPT CODE: [id number] XR C-SPINE 6+V 85857 COMPARISON: None available. IMAGES PROVIDED: 7 views of the cervical spine and 7 views of the lumbar spine FINDINGS: Cervical spine: C3-C6 interbody fusion is demonstrated as well as C6-C7 ACDF hardware. Marked disc degeneration is seen at C6-C7 without evidence of osseous fusion. No abnormal motion is seen with flexion/extension. No acute fracture. Lower cervical facet hypertrophy is noted. Surgical clips are seen within the neck. Sternotomy wires are present. Visualized lungs are clear. Lumbar spine: 5 lumbar type vertebrae are present. Grade 1 retrolisthesis of L5-S1. No dynamic motion is seen with flexion/extension. No acute fracture. Mild multilevel disc degeneration is noted as well as mid to lower lumbar facet hypertrophy. Hip joints are maintained. Osteopenia is present. IMPRESSION: 1. Postoperative changes of the cervical spine. No evidence of dynamic instability. 2. Multilevel lumbar spondylosis without evidence of dynamic instability. at 1978 Reported and signed by: Uriah Nino M.D. CC: Adrian Guido MD Technologist: RT Gisel.(R) Transcribed D/ (4108) CharanSLJ [facility] NAME: CABRERA STEIN [address] [place] [address] PHYS: Adrian Glez MD : 1940 AGE: 78 SEX: M [place] [address] LOC: Y.MRI PHONE #: [phone] EXAM DATE: 03/31/2019 STATUS: DEP CLI FAX #: [phone] RAD #: D/C DT PAGE 1 Signed Report Patient Name: CABRERA JAMISON Unit No: [id number] EXAMS: CPT CODE: [id number] XR C-SPINE 6+V 56217 <Continued> Orig Print D/T: S: 04/01/2019 (2208) [facility] NAME: CABRERA JAMISON [address] [place] [address] PHYS: Adrian Glez MD : 1940 AGE: 78 SEX: M [place] [address] LOC: Y.MRI PHONE #: [phone] EXAM DATE: 03/31/2019 STATUS: DEP CLI FAX #: [phone] RAD #: D/C DT PAGE 2 Signed Report- MRI L-SPINE W/O CONT 2019-04-01 14:34:00 Patient Name: CABRERA JAMISON Unit No: [id number] EXAMS: CPT CODE: [id number] MRI L-SPINE W/O CONT 03103 TECHNIQUE: Multiplanar, multisequence MRI examination performed of the lumbar spine without intravenous contrast material. COMPARISON: Concurrent radiographs FINDINGS: Five lumbar type vertebra are present Alignment: Within normal limits Bone Lesion: No suspicious osseous lesion. Fracture:None present. Paraspinal Soft Tissues: Unremarkable. Conus Medullaris: Termination at L2 level. Morphology is normal. L1/2: No significant abnormality. L2/3: Diffuse disc bulge. No significant central canal stenosis. Mild foraminal narrowing is present bilaterally. L3/4: Broad disc bulge with right paracentral disc protrusion measuring 2 to 3 mm. Mild bilateral facet hypertrophy. There is mild central canal stenosis as well as right lateral recess stenosis. Mild left, moderate right foraminal stenosis. L4/5: Broad disc bulge is present as well as moderate bilateral facet hypertrophy. There is a possible right-sided facet cyst extending into the neural foramen and impingingthe right L4 nerve (sagittal T2 image 12). There is mild to moderate central canal stenosis aswell as moderate left, marked right foraminal stenosis. L5/S1: Disc desiccationand broad bulge. Mild bilateral facet hypertrophy. There is mild bilateral foraminal stenosis as well as mild central canal stenosis. IMPRESSION: Multilevel lumbar spondylosis with suspected right-sided facet cyst at L4-L5 impinging the right L4 nerve. Electronically Signed by Matheus Nino on 04/01/2019 at 1434 Reported and signed by: Uriah Nino M.D. CC: Adrian Guido MD Technologist: CANDIDA FERGUSON RT(R) Transcribed D/ (3418) [facility] [place] NAME: CABRERA JAMISON [address] [place] [address] PHYS: Adrian Glez MD : 1940 AGE: 78 SEX: M [place] [address] LOC: Y.MRI PHONE #: [phone] EXAM DATE: 03/31/2019 STATUS: M[facility] CLI FAX #: [phone] RAD #: D/C DT PAGE 1 Signed Report Patient Name: CABRERA JAMISON Unit No: [id number] EXAMS: CPT CODE: [id number] MRI L-SPINE W/O CONT 40954 <Continued> Orig Print D/T: S: 04/01/2019 (4828) [facility] NAME: CABRERA JAMISON [address] [place] [address] PHYS: Adrian Glez MD : 1940 AGE: 78 SEX: M [place] [address] LOC: Y.MRI PHONE #: [phone] EXAM DATE:03/31/2019 STATUS: [facility] CLI FAX #: [phone] RAD #: D/C DT PAGE 2 Signed Report- MRI C-SPINE W/O [id number] 14:23:00 Patient Name: CABRERA JAMISON Unit No: [id number] EXAMS: CPT CODE: [id number] MRI C-SPINE W/O CONT 46715 TECHNIQUE: Multiplanar, multisequence MRI examination performed of the cervical spine without intravenous contrast material. COMPARISON: None available. FINDINGS: Interbody fusion from C3 to C6 is demonstrated. There is ACDF hardware extending from C6 to C7. Alignment: Straightening of cervical lordosis. Bone Lesion / Fracture: None present. Cervical Spinal Cord: There is increased cord signal at the C4-C5 level with diminished cord volume, likely myelomalacia. Prevertebral / Paraspinal Soft Tissues: Unremarkable. C2/3: Broad disc bulge. Left greater than right facet hypertrophy. There is severe left, moderate right foraminal stenosis as well as moderate central canal stenosis. C3/4: Discectomy and interbody fusion. Mild to moderate bilateral foraminal stenosis is present. No significant central canal stenosis. C4/5: Discectomy and interbody fusion. Facet and uncovertebral hypertrophy resu lts in moderate bilateral foraminal narrowing. No significant central canal stenosis. C5/6: Discectomy and interbody fusion. Uncovertebral hypertrophy results in moderate bilateral foraminal stenosis. No significant central canal stenosis. C6/7: ACDF construct is present. No definite interbody fusion. Left greater than right facet and uncovertebral hypertrophy results in severe left, moderate right foraminal stenosis. There is mild tomoderate central canal stenosis. C7/T1: Broad disc bulge. Bilateral facet and uncovertebral hypertrophy. There is moderate left, severe right foraminal stenosis as well as mild central canal stenosis. IMPRESSION: Extensive postoperative changes of the cervical spine with multilevel spondylosis as described. Increased cord signal at the C4-C5 level is likely secondary to myelomalacia. at 1423 Reported and signed by: Uriah Nino M.D. [facility] NAME: CABRERA JAMISON [address] [facility] PHYS: Adrian Glez MD : 1940 AGE: 78 SEX: M [place], [place] [address] [id number] LOC: Y.MRI PHONE #: [phone] DATE: 03/31/2019 STATUS: DEP CLI FAX #: [phone] RAD #: D/C DT PAGE 1 Signed Report (CONTINUED) Patient Name: CABRERA JAMISON Unit No: [id number] EXAMS: CPT CODE: [id number] MRI C-SPINE W/O CONT 03492 <Continued> CC: Adrian Guido MD Technologist: CANDIDA FERGUSON RT(R) Transcribed D/ (4443) t.GURJITR.J [facility] NAME: CABRERA JAMISON [address] [place] [address] PHYS: Adrian Glez MD : 1940 AGE: 78 SEX: M [place] [address] LOC: Y.MRI PHONE #: [phone] EXAM DATE: 1 STATUS: DEP CLI FAX #: [phone] RAD #: D/C DT PAGE 2 Signed Report Patient Name: CABRERA JAMISON Unit No: [id number] EXAMS: CPT CODE: [id number] MRI C-SPINE W/O CONT 86438 <Continued> Orig Print D/T: S: 04/01/2019 (8992) [facility] NAME: CABRERA JAMISON [address] [place] [address] PHYS: Adrian Glez MD : 1940 AGE: 78 SEX: M [place] [address] LOC: Y.MRI PHONE #: [phone] EXAM DATE: 03/31/2019 STATUS: DEP CLI FAX #:[phone] RAD #: D/C DT PAGE 3 Signed ReportTISSUE [id number] 15:27:00Surgical Pathology Report Case: [id number] Authorizing Provider: Yinka Desai MD Collected: 02/10/2018 0923 Ordering Location: [facility] Received: 02/10/2018 1340 SERVICES Pathologist: Godwin Yin MD Specimens: A) -Ureteral Stent, RIGHT URETERAL STENT FOR ID ONLY B) - Renal Pelvis, RIGHT RENAL PELVIS BIOPSY A. RIGHT URETERAL STENT, REMOVAL: - URETERAL STENT IDENTIFIED (GROSS ONLY)B. RENAL PELVIS, RIGHT, BIOPSY: - BENIGNUROTHELIUM WITH ACUTE AND CHRONIC INFLAMMATION - NEGATIVE FOR DYSPLASIA/CARCINOMA Signing P athologist Direct Phone Line: [phone] signed by Godwin Yin MD on 02/11/2018 at 3:27 [id number] stone, urinary tract infection without hematuria, hydronephrosis due to obstruction of ureterA. Right ureteral stent; B. Right renal pelvisThe specimen is received intwo containers of formalin both labeled with the [...] to 1 cm, submitted entirely B1. CG/pl Performed.[id number] 15:25:00Medical Cytology Report Case: [id number] Authorizing Provider: Yinka Desai MD Collected: 02/10/2018 1231 Ordering Location: [facility] Received: 02/11/2018 0839 SERVICES Pathologist: Godwin Yin MD Specimen: Renal Pelvis RENAL PELVIS WASHING(CYTOSPINS): - NEGATIVE FOR HIGH GRADE UROTHELIAL MALIGNANCY ACUTE INFLAMMATION IS PRESENT Signing Pathologist Direct Phone Line: [phone] signed by Godwin Yin MD on 02/11/2018 at 3:25 [id number] of hydronephrosis and urinary stones.RENAL PELVIS SJTVCCQ29 mls blood-tinged; 4 cytospinsCollected: [id number]: [id number] [facility], Department of Pathology, [address] [place] [address], [facility], [address] [place] [address], LD, 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 IN OR/30 MINUTE [id number] 13:59:00Reason for exam:->ureteroscopy with laserFINAL REPORT INDICATION: Ureteroscopy with laser IMPRESSION: 65 [...] fluoroscopy time: 1.28 minutes, 65 images Signed: Jailene M[place] MDReport Verified Date/Time: 02/10/2018 13:59:29 Reading Location: [facility] C0[facility] Consult Reading Room TISSUE [id number] 10:45:00Surgical Pathology Report Case: [id number] Authorizing Provider: Yinka Desai MD Collected: 01/08/2018 1715 Ordering Location: [facility] Received: 01/09/2018 0810 SERVICES Pathologist: Karey Salas MD Specimen: Ureteral Stent, right nephrostomy tube for ID B.RIGHT NEPHROSTOMY TUBE, REMOVAL:- MEDICAL HARDWARE IDENTIFIED (GROSS ONLY) Signing Pathologist Direct Phone Line: [phone] signed by Karey Salas MD on 01/14/2018 at 10:45 [id number]. Right nephrostomy tubeB.The specimen is received in a fluidless container labeled with patient information and labeled "right nephrostomy tube" and consists of a white tube measuring 30 cm in length x 0.2cm in diameter. The specimen is submitted for gross identification only. CG/pl n/a BASIC METABOLIC [id number] 06:17:00 Test Item Value Reference Range Interpretation Comments SODIUM (BEAKER) 137 meq/L 136-145 (test code = 381) POTASSIUM (BEAKER) 4.3 meq/L 3.5-5.1 (test code = 379) CHLORIDE (BEAKER) 108 meq/L 98-107 H (test code = 382) CO2 (BEAKER) (test 21 meq/L 22-29 L code = 355) BLOOD UREA NITROGEN 11 mg/dL 7-21 (BEAKER) (test code = 354) CREATININE (BEAKER) 0.97 mg/dL 0.57-1.25 (test code = 358) GLUCOSE RANDOM 115 mg/dL 70-105 H (BEAKER) (test code = 652) CALCIUM (BEAKER) 9.0 mg/dL 8.4-10.2 (test code = 697) EGFR (BEAKER) (test 75 mL/min/1.73 ESTIMA DAMIAN GFR IS code = 1092) sq m NOT ACCURATE CREATININE CLEARANCE IN PREDICTING GLOMERULAR FILTRATION RATE . ESTIMATED GFR I S NOT APPLICABLE FOR DIALYSIS PATIEN TS. CBC W/PLT COUNT & AUTO [id number] 06:09:00 Test Item Value Reference Range Interpretation Comments WHITE BLOOD CELL COUNT (BEAKER) 8.7 K/ L 3.5-10.5 (test code = 775) RED BLOOD CELL COUNT (BEAKER) 3.61 M/ L 4.63-6.08 L (test code = 761) HEMOGLOBIN (BEAKER) (test code = 10.3 GM/DL 13.7-17.5 L 410) HEMATOCRIT (BEAKER) (test code = 33.5 % 40.1-51.0 L 411) MEAN CORPUSCULAR VOLUME (BEAKER) 92.8 fL 79.0-92.2 H (test code = 753) MEAN CORPUSCULAR HEMOGLOBIN 28.5 pg 25.7-32.2 (BEAKER) (test code = 751) MEAN CORPUSCULAR HEMOGLOBIN CONC 30.7 GM/DL 32.3-36.5 L (BEAKER) (test code = 752) RED CELL DISTRIBUTION WIDTH 16.8 % 11.6-14.4 H (BEAKER) (test code = 412) PLATELET COUNT (BEAKER) (test 114 K/CU MM 150-450 L code = 756) MEAN PLATELET VOLUME (BEAKER) 11.1 fL 9.4-12.4 (test code = 754) NUCLEATED RED BLOOD CELLS 0 /100 WBC 0-0 (BEAKER) (test code = 413) NEUTROPHILS RELATIVE PERCENT 66 % (BEAKER) (test code = 429) LYMPHOCYTES RELATIVE PERCENT 15 % (BEAKER) (test code = 430) MONOCYTES RELATIVE PERCENT 15 % (BEAKER) (test code = 431) EOSINOPHILS RELATIVE PERCENT 4 % (BEAKER) (test code = 432) BASOPHILS RELATIVE PERCENT 1 % (BEAKER) (test code = 437) NEUTROPHILS ABSOLUTE COUNT 5.72 K/ L 1.78-5.38 H (BEAKER) (test code = 670) LYMPHOCYTES ABSOLUTE COUNT 1.27 K/ L 1.32-3.57 L (BEAKER) (test code = 414) MONOCYTES ABSOLUTE COUNT (BEAKER) 1.27 K/ L 0.30-0.82 H (test code = 415) EOSINOPHILS ABSOLUTE COUNT 0.34 K/ L 0.04-0.54 (BEAKER) (test code = 416) BASOPHILS ABSOLUTE COUNT (BEAKER) 0.06 K/ L 0.01-0.08 (test code = 417) IMMATURE GRANULOCYTES-RELATIVE 1 % 0-1 PERCENT (BEAKER) (test code = 2801) AK, TOTEMS (formerly Nitrogram) IN OR/30 MINUTE [id number] 20:57:00Reason for exam:->PYELOGRAMFINAL REPORT Examination: Retrograde pyelography 113 fluoroscopic spot viewswere obtained during the procedure by the ordering service. Images are nondiagnostic as no radiologist was present at the time of imaging. Fluoroscopic time was 2.5 minutes. Please see the procedure report for details. Signed: Teja Rao MDReport Verified Date/Time: 01/08/2018 20:57:50 Reading Location: [address] Reading Room Electronically signed by: TEJA RAO M.D. 01/08/2018 08:57 PMBASI METABOLIC [id number] 18:42:00 Test Item Value Reference Range Interpretation Comments SODIUM (BEAKER) 138 meq/L 136-145 (test code = 381) POTASSIUM (BEAKER) 4.5 meq/L 3.5-5.1 (test code = 379) CHLORIDE (BEAKER) 108 meq/L 98-107 H (test code = 382) CO2 (BEAKER) (test 23 meq/L 22-29 code = 355) BLOOD UREA NITROGEN 10 mg/dL 7-21 (BEAKER) (test code = 354) CREATININE (BEAKER) 0.94 mg/dL 0.57-1.25 (test code = 358) GLUCOSE RANDOM 125 mg/dL 70-105 H (BEAKER) (test code = 652) CALCIUM (BEAKER) 9.2 mg/dL 8.4-10.2 (test code = 697) EGFR (BEAKER) (test 78 mL/min/1.73 ESTIMA DAMIAN GFR IS code = 1092) sq m NOT ACCURATE CREATININE CLEARANCE IN PREDICTING GLOMERULAR FILTRATION RATE . ESTIMATED GFR I S NOT APPLICABLE FOR DIALYSIS PATIEN TS. BASIC METABOLIC [id number] 18:41:00 Test Item Value Reference Range Interpretation Comments SODIUM (BEAKER) 137 meq/L 136-145 (test code = 381) POTASSIUM (BEAKER) 4.0 meq/L 3.5-5.1 (test code = 379) CHLORIDE (BEAKER) 107 meq/L 98-107 (test code = 382) CO2 (BEAKER) (test 22 meq/L 22-29 code = 355) BLOOD UREA NITROGEN 13 mg/dL 7-21 (BEAKER) (test code = 354) CREATININE (BEAKER) 0.96 mg/dL 0.57-1.25 (test code = 358) GLUCOSE RANDOM 120 mg/dL 70-105 H (BEAKER) (test code = 652) CALCIUM (BEAKER) 9.3 mg/dL 8.4-10.2 (test code = 697) EGFR (BEAKER) (test 76 mL/min/1.73 ESTIMA DAMIAN GFR IS code = 1092) sq m NOT ACCURATE CREATININE CLEARANCE IN PREDICTING GLOMERULAR FILTRATION RATE . ESTIMATED GFR I S NOT APPLICABLE FOR DIALYSIS PATIEN TS. CBC W/PLT COUNT & AUTO [id number] 18:17:00 Test Item Value Reference Range Interpretation Comments WHITE BLOOD CELL COUNT (BEAKER) 7.7 K/ L 3.5-10.5 (test code = 775) RED BLOOD CELL COUNT (BEAKER) 3.51 M/ L 4.63-6.08 L (test code = 761) HEMOGLOBIN (BEAKER) (test code = 10.1 GM/DL 13.7-17.5 L 410) HEMATOCRIT (BEAKER) (test code = 32.4 % 40.1-51.0 L 411) MEAN CORPUSCULAR VOLUME (BEAKER) 92.3 fL 79.0-92.2 H (test code = 753) MEAN CORPUSCULAR HEMOGLOBIN 28.8 pg 25.7-32.2 (BEAKER) (test code = 751) MEAN CORPUSCULAR HEMOGLOBIN CONC 31.2 GM/DL 32.3-36.5 L (BEAKER) (test code = 752) RED CELL DISTRIBUTION WIDTH 16.6 % 11.6-14.4 H (BEAKER) (test code = 412) PLATELET COUNT (BEAKER) (test 128 K/CU MM 150-450 L code = 756) MEAN PLATELET VOLUME (BEAKER) 11.3 fL 9.4-12.4 (test code = 754) NUCLEATED RED BLOOD CELLS 0 /100 WBC 0-0 (BEAKER) (test code = 413) NEUTROPHILS RELATIVE PERCENT 66 % (BEAKER) (test code = 429) LYMPHOCYTES RELATIVE PERCENT 13 % (BEAKER) (test code = 430) MONOCYTES RELATIVE PERCENT 15 % (BEAKER) (test code = 431) EOSINOPHILS RELATIVE PERCENT 5 % (BEAKER) (test code = 432) BASOPHILS RELATIVE PERCENT 1 % (BEAKER) (test code = 437) NEUTROPHILS ABSOLUTE COUNT 5.05 K/ L 1.78-5.38 (BEAKER) (test code = 670) LYMPHOCYTES ABSOLUTE COUNT 1.01 K/ L 1.32-3.57 L (BEAKER) (test code = 414) MONOCYTES ABSOLUTE COUNT (BEAKER) 1.13 K/ L 0.30-0.82 H (test code = 415) EOSINOPHILS ABSOLUTE COUNT 0.41 K/ L 0.04-0.54 (BEAKER) (test code = 416) BASOPHILS ABSOLUTE COUNT (BEAKER) 0.04 K/ L 0.01-0.08 (test code = 417) IMMATURE GRANULOCYTES-RELATIVE 0 % 0-1 PERCENT (BEAKER) (test code = 2801) URINE [id number] 10:16:00 Test Item Value Reference Interpretation Comments Range CULTURE (BEAKER) (test PROTEUS A >100, 000 col/mL code = 1095) MIRABILIS Proteus mirabil is Amikacin (test code = S 1) Ampicillin + Sulbactam R (test code = 6) Aztreonam (test code = S 32) Cefepime (test code = S 51) Cefoxitin (test code = S 68) Ceftazidime (test code S = 27) Ceftriaxone (test code S = 52) Ertapenem (test code = S 38) Gentamicin (test code S = 18) Levofloxacin (test S code = 22) Meropenem (test code = S 34) Nitrofurantoin (test R code = 23) Piperacillin + S Tazobactam (test code = 29) Tetracycline (test R code = 2) Tobramycin (test code S = 25) Trimethoprim + S Sulfamethoxazole (test code = 47) CULTURE (BEAKER) (test A >100, 000 col/mL code = 1095) Same organism h as been isolated f rom cultures(s) of the same body site and collection date . Repeat identification and susceptibility testing perform ed only after consultation wi th the clinical microbiology laboratory.Refe r to previous cultur e ofPseudomonas aeruginosa >100,000 col/mL skin albin<10,000 col/mL Gram negative chrissie of a 3rd type URINE [id number] 10:13:00 Test Item Value Reference Interpretation Comments Range CULTURE (BEAKER) ESCHERICHIA COLI A >100,00 0 col/mL (test code = 1095) Escherich ia coli Amikacin (test code = S 1) Ampicillin + R Sulbactam (test code = 6) Aztreonam (test code S = 32) Cefepime (test code = S 51) Cefoxitin (test code S = 68) Ceftazidime (test S code = 27) Ceftriaxone (test S code = 52) Ertapenem (test code S = 38) Gentamicin (test code S = 18) Levofloxacin (test R code = 22) Meropenem (test code S = 34) Nitrofurantoin (test S code = 23) Piperacillin + S Tazobactam (test code = 29) Tetracycline (test R code = 2) Tobramycin (test code S = 25) Trimethoprim + R Sulfamethoxazole (test code = 47) CULTURE (BEAKER) A >100,000 co l/mL (test code = 1095) Same orga nism has been isolated f rom cultures(s) of the same body site and collection date . Repeat identification and susceptibility testing perform ed only after consultation wi th the clinical microbiology laboratory.Refe r to previous cultur e ofProteus mirab ilis CULTURE (BEAKER) A >100,000 co l/mL (test code = 1095) Pseudomon as aeruginosa CBC W/PLT COUNT & AUTO [id number] 11:42:00 Test Item Value Reference Range Interpretation Comments WHITE BLOOD CELL COUNT (BEAKER) 9.2 K/ L 3.5-10.5 (test code = 775) RED BLOOD CELL COUNT (BEAKER) 3.31 M/ L 4.63-6.08 L (test code = 761) HEMOGLOBIN (BEAKER) (test code = 9.6 GM/DL 13.7-17.5 L 410) HEMATOCRIT (BEAKER) (test code = 30.2 % 40.1-51.0 L 411) MEAN CORPUSCULAR VOLUME (BEAKER) 91.2 fL 79.0-92.2 (test code = 753) MEAN CORPUSCULAR HEMOGLOBIN 29.0 pg 25.7-32.2 (BEAKER) (test code = 751) MEAN CORPUSCULAR HEMOGLOBIN CONC 31.8 GM/DL 32.3-36.5 L (BEAKER) (test code = 752) RED CELL DISTRIBUTION WIDTH 16.7 % 11.6-14.4 H (BEAKER) (test code = 412) PLATELET COUNT (BEAKER) (test 127 K/CU MM 150-450 L code = 756) MEAN PLATELET VOLUME (BEAKER) 11.1 fL 9.4-12.4 (test code = 754) NUCLEATED RED BLOOD CELLS 0 /100 WBC 0-0 (BEAKER) (test code = 413) (CELLAVISION MANUAL DIFF)2017-12-18 11:42:00 Test Item Value Reference Range Interpretation Comments NEUTROPHILS - REL 73 % (CELLAVISION)(BEAKER) (test code = 2816) LYMPHOCYTES - REL 17 % (CELLAVISION)(BEAKER) (test code = 2817) MONOCYTES - REL 8 % (CELLAVISION)(BEAKER) (test code = 2818) EOSINOPHILS - REL 2 % (CELLAVISION)(BEAKER) (test code = 2819) NEUTROPHILS - ABS 6.72 K/ul 1.78-5.38 H (CELLAVISION)(BEAKER) (test code = 2830) LYMPHOCYTES - ABS 1.56 K/ul 1.32-3.57 (CELLAVISION)(BEAKER) (test code = 2831) MONOCYTES - ABS 0.74 K/uL 0.30-0.82 (CELLAVISION)(BEAKER) (test code = 2832) EOSINOPHILS - ABS 0.18 K/uL 0.04-0.54 (CELLAVISION)(BEAKER) (test code = 2834) TOTAL COUNTED (BEAKER) (test code = 100 1351) WBC MORPHOLOGY (BEAKER) (test code Normal = 487) PLT MORPHOLOGY (BEAKER) (test code Normal = 486) POLYCHROMATOPHILLIC RBCS(BEAKER) 1+ few (test code = 478) ANISOCYTOSIS (BEAKER) (test code = 1+ few 961) ARTIFACT (CELLAVISION)(BEAKER) Present (test code = 3432) PLATELET CONCENTRATION Decreased (CELLAVISION)(BEAKER) (test code = 3438) Received comment: User comments: Slide comments:MILES, DRAINAGE TUBE CHANGE (GASTRO, NEPHRO OR BILIARY)2017-12-18 10:11:00Reason for exam:->BACK PAINReason for exam:->URINARY RETENTIONFINAL REPORT Right percutaneous nephrostomy catheter exchange.History: Back pain, urinary retention Modality: Fluoroscopy Sedation: Versed 1.0 mg and fentanyl 50 mcg was given intravenously for conscious sedation. Vital signswere monitored throughout the procedure by a nurse, and remained stable. Physician intra- service time was 30 minutes. Dye Boarding Machine Operator: Uriah Juares MD. Broach Setter: Jas Approach: Existing right nephrostomy Estimated blood [...] the wire through the catheter. A 9 Kinyarwanda sheath was advanced over the catheter and into thekidney. The catheter is able to be removed through the sheath. A guidewire was then inserted throughthe sheath and coiled within the renal pelvis. The sheath was removed and a new 8.5 Kinyarwanda catheter was advanced over the guidewire and [...] thecatheter, ideally every six weeks. Signed: Uriah Juares [facility] Verified Date/Time: 12/18/201710:11:33 Reading Location: [facility] Diagnostic Imaging Reading Room - [facility] 1.310.12 [id number] 06:14:00 Test Item Value Reference Range Interpretation Comments MAGNESIUM (BEAKER) (test code = 2.2 mg/dL 1.6-2.6 627) BASIC METABOLIC [id number] 06:14:00 Test Item Value Reference Range Interpretation Comments SODIUM (BEAKER) 134 meq/L 136-145 L (test code = 381) POTASSIUM (BEAKER) 4.0 meq/L 3.5-5.1 (test code = 379) CHLORIDE (BEAKER) 104 meq/L 98-107 (test code = 382) CO2 (BEAKER) (test 21 meq/L 22-29 L code = 355) BLOOD UREA NITROGEN 18 mg/dL 7-21 (BEAKER) (test code = 354) CREATININE (BEAKER) 0.96 mg/dL 0.57-1.25 (test code = 358) GLUCOSE RANDOM 111 mg/dL 70-105 H (BEAKER) (test code = 652) CALCIUM (BEAKER) 9.2 mg/dL 8.4-10.2 (test code = 697) EGFR (BEAKER) (test 76 mL/min/1.73 ESTIMA DAMIAN GFR IS code = 1092) sq m NOT ACCURATE CREATININE CLEARANCE IN PREDICTING GLOMERULAR FILTRATION RATE . ESTIMATED GFR I S NOT APPLICABLE FOR DIALYSIS PATIEN TS. CBC W/PLT COUNT & AUTO [id number] 09:56:00 Test Item Value Reference Range Interpretation Comments WHITE BLOOD CELL COUNT (BEAKER) 11.6 K/ L 3.5-10.5 H (test code = 775) RED BLOOD CELL COUNT (BEAKER) 3.31 M/ L 4.63-6.08 L (test code = 761) HEMOGLOBIN (BEAKER) (test code = 9.3 GM/DL 13.7-17.5 L 410) HEMATOCRIT (BEAKER) (test code = 30.2 % 40.1-51.0 L 411) MEAN CORPUSCULAR VOLUME (BEAKER) 91.2 fL 79.0-92.2 (test code = 753) MEAN CORPUSCULAR HEMOGLOBIN 28.1 pg 25.7-32.2 (BEAKER) (test code = 751) MEAN CORPUSCULAR HEMOGLOBIN CONC 30.8 GM/DL 32.3-36.5 L (BEAKER) (test code = 752) RED CELL DISTRIBUTION WIDTH 16.6 % 11.6-14.4 H (BEAKER) (test code = 412) PLATELET COUNT (BEAKER) (test 130 K/CU MM 150-450 L code = 756) MEAN PLATELET VOLUME (BEAKER) 11.5 fL 9.4-12.4 (test code = 754) NUCLEATED RED BLOOD CELLS 0 /100 WBC 0-0 (BEAKER) (test code = 413) (CELLAVISION MANUAL DIFF)2017-12-17 09:56:00 Test Item Value Reference Range Interpretation Comments NEUTROPHILS - REL 83 % (CELLAVISION)(BEAKER) (test code = 2816) LYMPHOCYTES - REL 8 % (CELLAVISION)(BEAKER) (test code = 2817) MONOCYTES - REL 7 % (CELLAVISION)(BEAKER) (test code = 2818) BASOPHILS - REL 1 % (CELLAVISION)(BEAKER) (test code = 2820) BANDS - REL (CELLAVISION)(BEAKER) 1 % 0-10 (test code = 2826) NEUTROPHILS - ABS 9.63 K/ul 1.78-5.38 H (CELLAVISION)(BEAKER) (test code = 2830) LYMPHOCYTES - ABS 0.93 K/ul 1.32-3.57 L (CELLAVISION)(BEAKER) (test code = 2831) MONOCYTES - ABS 0.81 K/uL 0.30-0.82 (CELLAVISION)(BEAKER) (test code = 2832) BASOPHILS - ABS 0.12 K/uL 0.01-0.08 H (CELLAVISION)(BEAKER) (test code = 2835) BANDS - ABS (CELLAVISION)(BEAKER) 0.12 K/uL 0.00-0.80 (test code = 2840) TOTAL COUNTED (BEAKER) (test code = 100 1351) RBC MORPHOLOGY (BEAKER) (test code Normal = 762) WBC MORPHOLOGY (BEAKER) (test code Normal = 487) PLT MORPHOLOGY (BEAKER) (test code Normal = 486) ARTIFACT (CELLAVISION)(BEAKER) Present (test code = 3432) PLATELET CONCENTRATION Decreased (CELLAVISION)(BEAKER) (test code = 3438) Received comment: User comments: Slide comments:[id number] 05:58:00 Test Item Value Reference Range Interpretation Comments MAGNESIUM (BEAKER) (test code = 1.9 mg/dL 1.6-2.6 627) BASIC METABOLIC [id number] 05:58:00 Test Item Value Reference Range Interpretation Comments SODIUM (BEAKER) 136 meq/L 136-145 (test code = 381) POTASSIUM (BEAKER) 4.1 meq/L 3.5-5.1 (test code = 379) CHLORIDE (BEAKER) 105 meq/L 98-107 (test code = 382) CO2 (BEAKER) (test 22 meq/L 22-29 code = 355) BLOOD UREA NITROGEN 20 mg/dL 7-21 (BEAKER) (test code = 354) CREATININE (BEAKER) 1.03 mg/dL 0.57-1.25 (test code = 358) GLUCOSE RANDOM 124 mg/dL 70-105 H (BEAKER) (test code = 652) CALCIUM (BEAKER) 9.0 mg/dL 8.4-10.2 (test code = 697) EGFR (BEAKER) (test 70 mL/min/1.73 ESTIMA DAMIAN GFR IS code = 1092) sq m NOT ACCURATE CREATININE CLEARANCE IN PREDICTING GLOMERULAR FILTRATION RATE . ESTIMATED GFR I S NOT APPLICABLE FOR DIALYSIS PATIEN TS. URINALYSIS W/ [id number] 11:48:00 Test Item Value Reference Range Interpretation Comments COLOR (BEAKER) (test code Yellow = 470) CLARITY (BEAKER) (test Cloudy code = 469) SPECIFIC GRAVITY UA 1.012 1.001-1.035 (BEAKER) (test code = 468) PH UA (BEAKER) (test code 8.5 5.0-8.0 H = 467) PROTEIN UA (BEAKER) (test >600 mg/dL Negative A code = 464) GLUCOSE UA (BEAKER) (test Negative Negative code = 365) KETONES UA (BEAKER) (test Negative Negative code = 371) BILIRUBIN UA (BEAKER) Negative Negative (test code = 462) BLOOD UA (BEAKER) (test Small Negative A code = 461) NITRITE UA (BEAKER) (test Negative Negative code = 465) LEUKOCYTE ESTERASE UA Large Negative A (BEAKER) (test code = 466) UROBILINOGEN UA (BEAKER) 0.2 mg/dL 0.2-1.0 (test code = 463) RBC UA (BEAKER) (test code 16 /HPF = 519) WBC UA (BEAKER) (test code 0 /HPF = 520) MUCUS (BEAKER) (test code Few = 1574) SQUAMOUS EPITHELIAL 4 /HPF (BEAKER) (test code = 516) CRYSTALS, URINE (BEAKER) Many (test code = 1521) TRIPLE PHOSPHATE CRYSTALS Few (BEAKER) (test code = 1582) URIC ACID CRYSTALS Moderate (BEAKER) (test code = 1583) YEAST (BEAKER) (test code Many = 1585) SOURCE(BEAKER) (test code Urine, Nephrostomy = 8955) URINALYSIS W/ [id number] 11:35:00 Test Item Value Reference Range Interpretation Comments COLOR (BEAKER) (test code = Yellow 470) CLARITY (BEAKER) (test code = Cloudy 469) SPECIFIC GRAVITY UA (BEAKER) 1.014 1.001-1.035 (test code = 468) PH UA (BEAKER) (test code = 8.0 5.0-8.0 467) PROTEIN UA (BEAKER) (test code 200 mg/dL Negative A = 464) GLUCOSE UA (BEAKER) (test code Negative Negative = 365) KETONES UA (BEAKER) (test code Negative Negative = 371) BILIRUBIN UA (BEAKER) (test Negative Negative code = 462) BLOOD UA (BEAKER) (test code = Moderate Negative A 461) NITRITE UA (BEAKER) (test code Positive Negative A = 465) LEUKOCYTE ESTERASE UA (BEAKER) Large Negative A (test code = 466) UROBILINOGEN UA (BEAKER) (test 0.2 mg/dL 0.2-1.0 code = 463) RBC UA (BEAKER) (test code = 3 /HPF 519) WBC UA (BEAKER) (test code = > /HPF 520) BACTERIA (BEAKER) (test code = Moderate 517) SOURCE(BEAKER) (test code = Urine, Voided 7293) CBC W/PLT COUNT & AUTO [id number] 10:12:00 Test Item Value Reference Range Interpretation Comments WHITE BLOOD CELL COUNT (BEAKER) 12.5 K/ L 3.5-10.5 H (test code = 775) RED BLOOD CELL COUNT (BEAKER) 4.14 M/ L 4.63-6.08 L (test code = 761) HEMOGLOBIN (BEAKER) (test code = 11.5 GM/DL 13.7-17.5 L 410) HEMATOCRIT (BEAKER) (test code = 37.6 % 40.1-51.0 L 411) MEAN CORPUSCULAR VOLUME (BEAKER) 90.8 fL 79.0-92.2 (test code = 753) MEAN CORPUSCULAR HEMOGLOBIN 27.8 pg 25.7-32.2 (BEAKER) (test code = 751) MEAN CORPUSCULAR HEMOGLOBIN CONC 30.6 GM/DL 32.3-36.5 L (BEAKER) (test code = 752) RED CELL DISTRIBUTION WIDTH 16.1 % 11.6-14.4 H (BEAKER) (test code = 412) PLATELET COUNT (BEAKER) (test 152 K/CU MM 150-450 code = 756) MEAN PLATELET VOLUME (BEAKER) 10.3 fL 9.4-12.4 (test code = 754) NUCLEATED RED BLOOD CELLS 0 /100 WBC 0-0 (BEAKER) (test code = 413) (CELLAVISION MANUAL DIFF)2017-12-16 10:12:00 Test Item Value Reference Range Interpretation Comments NEUTROPHILS - REL 83 % (CELLAVISION)(BEAKER) (test code = 2816) LYMPHOCYTES - REL 3 % (CELLAVISION)(BEAKER) (test code = 2817) MONOCYTES - REL 7 % (CELLAVISION)(BEAKER) (test code = 2818) BANDS - REL (CELLAVISION)(BEAKER) 7 % 0-10 (test code = 2826) NEUTROPHILS - ABS 10.38 K/ul 1.78-5.38 H (CELLAVISION)(BEAKER) (test code = 2830) LYMPHOCYTES - ABS 0.38 K/ul 1.32-3.57 L (CELLAVISION)(BEAKER) (test code = 2831) MONOCYTES - ABS 0.88 K/uL 0.30-0.82 H (CELLAVISION)(BEAKER) (test code = 2832) BANDS - ABS (CELLAVISION)(BEAKER) 0.88 K/uL 0.00-0.80 H (test code = 2840) TOTAL COUNTED (BEAKER) (test code 100 = 1351) WBC MORPHOLOGY (BEAKER) (test code Normal = 487) PLT MORPHOLOGY (BEAKER) (test code Normal = 486) POLYCHROMATOPHILLIC RBCS(BEAKER) 1+ few (test code = 478) ANISOCYTOSIS (BEAKER) (test code = 1+ few 961) ARTIFACT (CELLAVISION)(BEAKER) Present (test code = 3432) PLATELET CONCENTRATION Adequate (CELLAVISION)(BEAKER) (test code = 3438) Received comment: User comments: Slide comments:BASIC METABOLIC [id number] 09:50:00 Test Item Value Reference Range Interpretation Comments SODIUM (BEAKER) 136 meq/L 136-145 (test code = 381) POTASSIUM (BEAKER) 4.5 meq/L 3.5-5.1 (test code = 379) CHLORIDE (BEAKER) 105 meq/L 98-107 (test code = 382) CO2 (BEAKER) (test 22 meq/L 22-29 code = 355) BLOOD UREA NITROGEN 21 mg/dL 7-21 (BEAKER) (test code = 354) CREATININE (BEAKER) 1.01 mg/dL 0.57-1.25 (test code = 358) GLUCOSE RANDOM 149 mg/dL 70-105 H (BEAKER) (test code = 652) CALCIUM (BEAKER) 9.6 mg/dL 8.4-10.2 (test code = 697) EGFR (BEAKER) (test 72 mL/min/1.73 ESTIMA DAMIAN GFR IS code = 1092) sq m NOT ACCURATE CREATININE CLEARANCE IN PREDICTING GLOMERULAR FILTRATION RATE . ESTIMATED GFR I S NOT APPLICABLE FOR DIALYSIS PATIEN TS. RAD, CHEST, 1 VIEW, NON [id number] 08:15:00Reason for exam:->Post-op TAVR with linesShould this be performed at the bedside?->YesFINAL REPORT Chest one view INDICATION: Postop TAVR with lines COMPARISON: 09/01 IMPRESSION: Right jugular transvenous pacing lead has been removed. Right jugular line extends to the SVC. 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 The cardiac silhouette is enlarged. There is pulmonary vascular congestion with decreased edema. Mild basilar opacities suggest atelectasis. No pneumothorax is seen. Signed: Jailene Mendoza MDReport Verified Date/Time: 09/20/2017 08:15:10 Reading Location: [facility] Radiology Reading Room [id number] 04:05:00 Test Item Value Reference Range Interpretation Comments PHOSPHORUS (BEAKER) (test code = 2.5 mg/dL 2.3-4.7 604) [id number] 04:05:00 Test Item Value Reference Range Interpretation Comments MAGNESIUM (BEAKER) (test code = 1.8 mg/dL 1.6-2.6 627) BASIC METABOLIC [id number] 04:05:00 Test Item Value Reference Range Interpretation Comments SODIUM (BEAKER) 137 meq/L 136-145 (test code = 381) POTASSIUM (BEAKER) 3.9 meq/L 3.5-5.1 (test code = 379) CHLORIDE (BEAKER) 106 meq/L 98-107 (test code = 382) CO2 (BEAKER) (test 25 meq/L 22-29 code = 355) BLOOD UREA NITROGEN 17 mg/dL 7-21 (BEAKER) (test code = 354) CREATININE (BEAKER) 0.81 mg/dL 0.57-1.25 (test code = 358) GLUCOSE RANDOM 121 mg/dL 70-105 H (BEAKER) (test code = 652) CALCIUM (BEAKER) 8.3 mg/dL 8.4-10.2 L (test code = 697) EGFR (BEAKER) (test 93 mL/min/1.73 ESTIMA DAMIAN GFR IS code = 1092) sq m NOT ACCURATE CREATININE CLEARANCE IN PREDICTING GLOMERULAR FILTRATION RATE . ESTIMATED GFR I S NOT APPLICABLE FOR DIALYSIS PATIEN TS. [id number] 04:01:00 Test Item Value Reference Range Interpretation Comments PARTIAL THROMBOPLASTIN TIME 30.3 seconds 22.5-36.0 (BEAKER) (test code = 760) PROTHROMBIN [id number] 04:00:00 Test Item Value Reference Range Interpretation Comments PROTIME (BEAKER) (test code = 15.3 seconds 11.7-14.7 H 759) INR (BEAKER) (test code = 370) 1.2 <=5.9 RECOMMENDED COUMADIN/WARFARIN INR THERAPY RANGESSTANDARD DOSE: 2.0 - 3.0 Includes: PROPHYLAXIS forvenous thrombosis, systemic embolization; TREATMENT for venous thrombosis and/or pulmonary embolus.HIGH RISK: Target INR is 2.5-3.5 for patients with mechanical heart valves.CBC (HEMOGRAM ONLY)2017-09-20 03:44:00 Test Item Value Reference Range Interpretation Comments WHITE BLOOD CELL COUNT (BEAKER) 9.5 K/ L 3.5-10.5 (test code = 775) RED BLOOD CELL COUNT (BEAKER) 3.13 M/ L 4.63-6.08 L (test code = 761) HEMOGLOBIN (BEAKER) (test code = 9.1 GM/DL 13.7-17.5 L 410) HEMATOCRIT (BEAKER) (test code = 28.4 % 40.1-51.0 L 411) MEAN CORPUSCULAR VOLUME (BEAKER) 90.7 fL 79.0-92.2 (test code = 753) MEAN CORPUSCULAR HEMOGLOBIN 29.1 pg 25.7-32.2 (BEAKER) (test code = 751) MEAN CORPUSCULAR HEMOGLOBIN CONC 32.0 GM/DL 32.3-36.5 L (BEAKER) (test code = 752) RED CELL DISTRIBUTION WIDTH 16.5 % 11.6-14.4 H (BEAKER) (test code = 412) PLATELET COUNT (BEAKER) (test code 83 K/CU MM 150-450 L = 756) MEAN PLATELET VOLUME (BEAKER) 10.7 fL 9.4-12.4 (test code = 754) NUCLEATED RED BLOOD CELLS (BEAKER) 0 /100 WBC 0-0 (test code = 413) POCT-GLUCOSE [id number] 13:47:00 Test Item Value Reference Range Interpretation Comments POC-GLUCOSE METER 144 mg/dL 70-110 H TESTED AT [facility] 6720 (BEAKER) (test code = [place] 1538) [address] RAD, CHEST, 1 VIEW, NON [id number] 04:48:00Reason for exam:->Post-op TAVR with linesShould this be performed at the bedside?->YesFINAL REPORT CLINICAL INDICATION: Postop Comparison: 09/18/2017 The cardiomedi astinal contours are stable. Central pulmonary vascular congestion and bilateral parenchymal opacities are unchanged. There is no pneumothorax. Support lines are stable. Signed: Teja Rao MDReport Verified Date/Time: 09/19/2017 04:48:24 Reading Location: [address] Reading Room BLOOD GAS, ARTERIAL 2017-09-19 04:37:00 Test Item Value Reference Range Interpretation Comments PH ARTERIAL (BEAKER) (test code = 7.43 7.35-7.45 383) PCO2 ARTERIAL (BEAKER) (test code 39 mmHg 35-45 = 384) PO2 ARTERIAL (BEAKER) (test code = 112 mmHg 80-90 H 385) O2 SATURATION ARTERIAL (BEAKER) 98.1 % 96.0-97.0 H (test code = 386) HCO3 ARTERIAL (BEAKER) (test code 25 mmol/L 21-29 = 388) BASE EXCESS ARTERIAL (BEAKER) 0.8 mmol/L -2.0-3.0 (test code = 387) PATIENT TEMPERATURE (BEAKER) (test 37.6 C code = 1818) FIO2 (BEAKER) (test code = 1819) 30.0 % Daily ABG with morning labs while patient is intubated.[id number] 04:27:00 Test Item Value Reference Range Interpretation Comments PHOSPHORUS (BEAKER) (test code = 3.6 mg/dL 2.3-4.7 604) [id number] 04:27:00 Test Item Value Reference Range Interpretation Comments MAGNESIUM (BEAKER) (test code = 1.4 mg/dL 1.6-2.6 L 627) BASIC METABOLIC [id number] 04:27:00 Test Item Value Reference Range Interpretation Comments SODIUM (BEAKER) 134 meq/L 136-145 L (test code = 381) POTASSIUM (BEAKER) 4.3 meq/L 3.5-5.1 (test code = 379) CHLORIDE (BEAKER) 105 meq/L 98-107 (test code = 382) CO2 (BEAKER) (test 24 meq/L 22-29 code = 355) BLOOD UREA NITROGEN 14 mg/dL 7-21 (BEAKER) (test code = 354) CREATININE (BEAKER) 0.80 mg/dL 0.57-1.25 (test code = 358) GLUCOSE RANDOM 134 mg/dL 70-105 H (BEAKER) (test code = 652) CALCIUM (BEAKER) 8.3 mg/dL 8.4-10.2 L (test code = 697) EGFR (BEAKER) (test 94 mL/min/1.73 ESTIMA DAMIAN GFR IS code = 1092) sq m NOT ACCURATE CREATININE CLEARANCE IN PREDICTING GLOMERULAR FILTRATION RATE . ESTIMATED GFR I S NOT APPLICABLE FOR DIALYSIS PATIEN TS. PROTHROMBIN [id number] 04:14:00 Test Item Value Reference Range Interpretation Comments PROTIME (BEAKER) (test code = 16.5 seconds 11.7-14.7 H 759) INR (BEAKER) (test code = 370) 1.3 <=5.9 RECOMMENDED COUMADIN/WARFARIN INR THERAPY RANGESSTANDARD DOSE: 2.0 - 3.0 Includes: PROPHYLAXIS forvenous thrombosis, systemic embolization; TREATMENT for venous thrombosis and/or pulmonary embolus.HIGH RISK: Target INR is 2.5-3.5 for patients with mechanical heart valves.[id number] 04:14:00 Test Item Value Reference Range Interpretation Comments PARTIAL THROMBOPLASTIN TIME 32.7 seconds 22.5-36.0 (BEAKER) (test code = 760) CBC (HEMOGRAM ONLY)2017-09-19 04:03:00 Test Item Value Reference Range Interpretation Comments WHITE BLOOD CELL COUNT (BEAKER) 9.7 K/ L 3.5-10.5 (test code = 775) RED BLOOD CELL COUNT (BEAKER) 3.22 M/ L 4.63-6.08 L (test code = 761) HEMOGLOBIN (BEAKER) (test code = 9.1 GM/DL 13.7-17.5 L 410) HEMATOCRIT (BEAKER) (test code = 29.3 % 40.1-51.0 L 411) MEAN CORPUSCULAR VOLUME (BEAKER) 91.0 fL 79.0-92.2 (test code = 753) MEAN CORPUSCULAR HEMOGLOBIN 28.3 pg 25.7-32.2 (BEAKER) (test code = 751) MEAN CORPUSCULAR HEMOGLOBIN CONC 31.1 GM/DL 32.3-36.5 L (BEAKER) (test code = 752) RED CELL DISTRIBUTION WIDTH 16.6 % 11.6-14.4 H (BEAKER) (test code = 412) PLATELET COUNT (BEAKER) (test code 92 K/CU MM 150-450 L = 756) MEAN PLATELET VOLUME (BEAKER) 11.5 fL 9.4-12.4 (test code = 754) NUCLEATED RED BLOOD CELLS (BEAKER) 0 /100 WBC 0-0 (test code = 413) RAD, CHEST, 1 VIEW, NON [id number] 16:24:00Reason for exam:->Post-opShould this be performed at the bedside?->YesFINAL REPORT AP chest HISTORY: Postoperative COMPARISON: None IMPRESSION:Our prosthesis present. Cardiomegaly. Mild interstitial edema. AICD present in right IJ catheter present.No large effusion. No pneumothorax. Signed: Marcos Adams MDReport Verified Date/Time: 09/18/201716:24:56 Reading Location: [facility] Reading Room [id number] 16:11:00 Test Item Value Reference Range Interpretation Comments PHOSPHORUS (BEAKER) (test code = 3.3 mg/dL 2.3-4.7 604) [id number] 16:11:00 Test Item Value Reference Range Interpretation Comments MAGNESIUM (BEAKER) (test code = 1.4 mg/dL 1.6-2.6 L 627) BASIC METABOLIC [id number] 16:11:00 Test Item Value Reference Range Interpretation Comments SODIUM (BEAKER) 138 meq/L 136-145 (test code = 381) POTASSIUM (BEAKER) 4.4 meq/L 3.5-5.1 (test code = 379) CHLORIDE (BEAKER) 108 meq/L 98-107 H (test code = 382) CO2 (BEAKER) (test 23 meq/L 22-29 code = 355) BLOOD UREA NITROGEN 13 mg/dL 7-21 (BEAKER) (test code = 354) CREATININE (BEAKER) 0.81 mg/dL 0.57-1.25 (test code = 358) GLUCOSE RANDOM 134 mg/dL 70-105 H (BEAKER) (test code = 652) CALCIUM (BEAKER) 9.2 mg/dL 8.4-10.2 (test code = 697) EGFR (BEAKER) (test 93 mL/min/1.73 ESTIMA DAMIAN GFR IS code = 1092) sq m NOT ACCURATE CREATININE CLEARANCE IN PREDICTING GLOMERULAR FILTRATION RATE . ESTIMATED GFR I S NOT APPLICABLE FOR DIALYSIS PATIEN TS. [id number] 16:09:00 Test Item Value Reference Range Interpretation Comments ACTIVATED CLOTTING TIME 120 sec TEST ED AT [facility] 6720 (BEAKER) (test code = [place] [address]) [id number] 16:09:00 Test Item Value Reference Range Interpretation Comments ACTIVATED CLOTTING TIME 323 sec TEST ED AT [place] [address] (BEAKER) (test code = [place] [address]) [id number] 16:09:00 Test Item Value Reference Range Interpretation Comments ACTIVATED CLOTTING TIME 312 sec TEST ED AT [place] [address] (BEAKER) (test code = [place] [address]) [id number] CBC W/PLT COUNT & AUTO [id number] 16:08:00 Test Item Value Reference Range Interpretation Comments WHITE BLOOD CELL COUNT (BEAKER) 10.5 K/ L 3.5-10.5 (test code = 775) RED BLOOD CELL COUNT (BEAKER) 3.39 M/ L 4.63-6.08 L (test code = 761) HEMOGLOBIN (BEAKER) (test code = 9.7 GM/DL 13.7-17.5 L 410) HEMATOCRIT (BEAKER) (test code = 30.7 % 40.1-51.0 L 411) MEAN CORPUSCULAR VOLUME (BEAKER) 90.6 fL 79.0-92.2 (test code = 753) MEAN CORPUSCULAR HEMOGLOBIN 28.6 pg 25.7-32.2 (BEAKER) (test code = 751) MEAN CORPUSCULAR HEMOGLOBIN CONC 31.6 GM/DL 32.3-36.5 L (BEAKER) (test code = 752) RED CELL DISTRIBUTION WIDTH 16.6 % 11.6-14.4 H (BEAKER) (test code = 412) PLATELET COUNT (BEAKER) (test code 85 K/CU MM 150-450 L = 756) MEAN PLATELET VOLUME (BEAKER) 10.7 fL 9.4-12.4 (test code = 754) NUCLEATED RED BLOOD CELLS (BEAKER) 0 /100 WBC 0-0 (test code = 413) NEUTROPHILS RELATIVE PERCENT 84 % (BEAKER) (test code = 429) LYMPHOCYTES RELATIVE PERCENT 8 % (BEAKER) (test code = 430) MONOCYTES RELATIVE PERCENT 5 % (BEAKER) (test code = 431) EOSINOPHILS RELATIVE PERCENT 3 % (BEAKER) (test code = 432) BASOPHILS RELATIVE PERCENT 0 % (BEAKER) (test code = 437) NEUTROPHILS ABSOLUTE COUNT 8.78 K/ L 1.78-5.38 H (BEAKER) (test code = 670) LYMPHOCYTES ABSOLUTE COUNT 0.80 K/ L 1.32-3.57 L (BEAKER) (test code = 414) MONOCYTES ABSOLUTE COUNT (BEAKER) 0.51 K/ L 0.30-0.82 (test code = 415) EOSINOPHILS ABSOLUTE COUNT 0.27 K/ L 0.04-0.54 (BEAKER) (test code = 416) BASOPHILS ABSOLUTE COUNT (BEAKER) 0.03 K/ L 0.01-0.08 (test code = 417) IMMATURE GRANULOCYTES-RELATIVE 1 % 0-1 PERCENT (BEAKER) (test code = 2801) LACTIC ACID, ARTERIAL, WHOLE [id number] 16:07:00 Test Item Value Reference Range Interpretation Comments LACTATE BLOOD ARTERIAL (2) 1.4 mmol/L 0.5-2.2 (BEAKER) (test code = 2874) Effective 10/05/2015: Units/Reference Range ChangeNew: 0.5-2.2 mmol/L Previous: 5-20 mg/[id number] 16:06:00 Test Item Value Reference Range Interpretation Comments PARTIAL THROMBOPLASTIN TIME 39.4 seconds 22.5-36.0 H (BEAKER) (test code = 760) PROTHROMBIN [id number] 16:05:00 Test Item Value Reference Range Interpretation Comments PROTIME (BEAKER) (test code = 16.7 seconds 11.7-14.7 H 759) INR (BEAKER) (test code = 370) 1.4 <=5.9 RECOMMENDED COUMADIN/WARFARIN INR THERAPY RANGESSTANDARD DOSE: 2.0 - 3.0 Includes: PROPHYLAXIS forvenous thrombosis, systemic embolization; TREATMENT for venous thrombosis and/or pulmonary embolus.HIGH RISK: Target INR is 2.5-3.5 for patients with mechanical heart valves.SODIUM NA-STAT [id number] 15:46:00 Test Item Value Reference Range Interpretation Comments SODIUM (BEAKER) (test code = 381) 135 meq/L 135-148 POTASSIUM-STAT [id number] 15:46:00 Test Item Value Reference Range Interpretation Comments POTASSIUM (BEAKER) (test code = 4.1 meq/L 3.6-5.5 379) CALCIUM, [id number] 15:46:00 Test Item Value Reference Range Interpretation Comments CALCIUM IONIZED (BEAKER) (test 1.21 mmol/L 1.12-1.27 code = 698) PH, BLOOD (BEAKER) (test code = 7.42 1810) BLOOD GAS, [id number] 15:46:00 Test Item Value Reference Range Interpretation Comments PH ARTERIAL (BEAKER) (test code = 7.42 7.35-7.45 383) PCO2 ARTERIAL (BEAKER) (test code 40 mmHg 35-45 = 384) PO2 ARTERIAL (BEAKER) (test code = 215 mmHg 80-90 H 385) O2 SATURATION ARTERIAL (BEAKER) 99.5 % 96.0-97.0 H (test code = 386) HCO3 ARTERIAL (BEAKER) (test code 26 mmol/L 21-29 = 388) BASE EXCESS ARTERIAL (BEAKER) 1.1 mmol/L -2.0-3.0 (test code = 387) PATIENT TEMPERATURE (BEAKER) (test 37.1 C code = 1818) FIO2 (BEAKER) (test code = 1819) 40.0 % GLUCOSE-STAT [id number] 15:46:00 Test Item Value Reference Range Interpretation Comments GLUCOSE RANDOM (BEAKER) (test code 129 mg/dL 70-110 H = 652) HGB/HCT (H&H) - STAT [id number] 15:46:00 Test Item Value Reference Range Interpretation Comments HEMOGLOBIN (BEAKER) (test code = 10.6 g/dL 13.0-16.8 L 410) HEMATOCRIT (BEAKER) (test code = 31.0 % 40.0-50.0 L 411) POTASSIUM-STAT [id number] 14:38:00 Test Item Value Reference Range Interpretation Comments POTASSIUM (BEAKER) (test code = 3.7 meq/L 3.6-5.5 379) CALCIUM, [id number] 14:38:00 Test Item Value Reference Range Interpretation Comments CALCIUM IONIZED (BEAKER) (test 1.22 mmol/L 1.12-1.27 code = 698) PH, BLOOD (BEAKER) (test code = 7.41 1810) BLOOD GAS, [id number] 14:38:00 Test Item Value Reference Range Interpretation Comments PH ARTERIAL (BEAKER) (test code = 7.42 7.35-7.45 383) PCO2 ARTERIAL (BEAKER) (test code 41 mmHg 35-45 = 384) PO2 ARTERIAL (BEAKER) (test code = 144 mmHg 80-90 H 385) O2 SATURATION ARTERIAL (BEAKER) 98.9 % 96.0-97.0 H (test code = 386) HCO3 ARTERIAL (BEAKER) (test code 26 mmol/L 21-29 = 388) BASE EXCESS ARTERIAL (BEAKER) 1.2 mmol/L -2.0-3.0 (test code = 387) PATIENT TEMPERATURE (BEAKER) (test 36.0 C code = 1818) FIO2 (BEAKER) (test code = 1819) 100.0 % GLUCOSE-STAT [id number] 14:38:00 Test Item Value Reference Range Interpretation Comments GLUCOSE RANDOM (BEAKER) (test code 127 mg/dL 70-110 H = 652) SODIUM NA-STAT [id number] 14:38:00 Test Item Value Reference Range Interpretation Comments SODIUM (BEAKER) (test code = 381) 133 meq/L 135-148 L HGB/HCT (H&H) - STAT [id number] 14:38:00 Test Item Value Reference Range Interpretation Comments HEMOGLOBIN (BEAKER) (test code = 9.4 g/dL 13.0-16.8 L 410) HEMATOCRIT (BEAKER) (test code = 28.0 % 40.0-50.0 L 411) CALCIUM, [id number] 12:06:00 Test Item Value Reference Range Interpretation Comments CALCIUM IONIZED (BEAKER) (test 1.10 mmol/L 1.12-1.27 L code = 698) PH, BLOOD (BEAKER) (test code = 7.42 1810) BLOOD GAS, [id number] 11:53:00 Test Item Value Reference Range Interpretation Comments PH ARTERIAL (BEAKER) (test code = 7.45 7.35-7.45 383) PCO2 ARTERIAL (BEAKER) (test code 35 mmHg 35-45 = 384) PO2 ARTERIAL (BEAKER) (test code = 474 mmHg 80-90 H 385) O2 SATURATION ARTERIAL (BEAKER) 99.9 % 96.0-97.0 H (test code = 386) HCO3 ARTERIAL (BEAKER) (test code 24 mmol/L 21-29 = 388) BASE EXCESS ARTERIAL (BEAKER) 0.2 mmol/L -2.0-3.0 (test code = 387) PATIENT TEMPERATURE (BEAKER) (test 35.0 C code = 1818) FIO2 (BEAKER) (test code = 1819) 90.0 % HGB/HCT (H&H) - STAT [id number] 11:53:00 Test Item Value Reference Range Interpretation Comments HEMOGLOBIN (BEAKER) (test code = 16.8 g/dL 13.0-16.8 410) HEMATOCRIT (BEAKER) (test code = 49.0 % 40.0-50.0 411) GLUCOSE-STAT [id number] 11:52:00 Test Item Value Reference Range Interpretation Comments GLUCOSE RANDOM (BEAKER) (test code 107 mg/dL 70-110 = 652) SODIUM NA-STAT [id number] 11:52:00 Test Item Value Reference Range Interpretation Comments SODIUM (BEAKER) (test code = 381) 135 meq/L 135-148 POTASSIUM-STAT [id number] 11:52:00 Test Item Value Reference Range Interpretation Comments POTASSIUM (BEAKER) (test code = 3.7 meq/L 3.6-5.5 379) CBC W/PLT COUNT & AUTO [id number] 11:59:00 Test Item Value Reference Range Interpretation Comments WHITE BLOOD CELL COUNT (BEAKER) 6.0 K/ L 3.5-10.5 (test code = 775) RED BLOOD CELL COUNT (BEAKER) 3.80 M/ L 4.63-6.08 L (test code = 761) HEMOGLOBIN (BEAKER) (test code = 10.9 GM/DL 13.7-17.5 L 410) HEMATOCRIT (BEAKER) (test code = 34.5 % 40.1-51.0 L 411) MEAN CORPUSCULAR VOLUME (BEAKER) 90.8 fL 79.0-92.2 (test code = 753) MEAN CORPUSCULAR HEMOGLOBIN 28.7 pg 25.7-32.2 (BEAKER) (test code = 751) MEAN CORPUSCULAR HEMOGLOBIN CONC 31.6 GM/DL 32.3-36.5 L (BEAKER) (test code = 752) RED CELL DISTRIBUTION WIDTH 16.8 % 11.6-14.4 H (BEAKER) (test code = 412) PLATELET COUNT (BEAKER) (test code 98 K/CU MM 150-450 L = 756) MEAN PLATELET VOLUME (BEAKER) 11.3 fL 9.4-12.4 (test code = 754) NUCLEATED RED BLOOD CELLS (BEAKER) 0 /100 WBC 0-0 (test code = 413) NEUTROPHILS RELATIVE PERCENT 61 % (BEAKER) (test code = 429) LYMPHOCYTES RELATIVE PERCENT 17 % (BEAKER) (test code = 430) MONOCYTES RELATIVE PERCENT 15 % (BEAKER) (test code = 431) EOSINOPHILS RELATIVE PERCENT 6 % (BEAKER) (test code = 432) BASOPHILS RELATIVE PERCENT 1 % (BEAKER) (test code = 437) NEUTROPHILS ABSOLUTE COUNT 3.65 K/ L 1.78-5.38 (BEAKER) (test code = 670) LYMPHOCYTES ABSOLUTE COUNT 1.01 K/ L 1.32-3.57 L (BEAKER) (test code = 414) MONOCYTES ABSOLUTE COUNT (BEAKER) 0.89 K/ L 0.30-0.82 H (test code = 415) EOSINOPHILS ABSOLUTE COUNT 0.38 K/ L 0.04-0.54 (BEAKER) (test code = 416) BASOPHILS ABSOLUTE COUNT (BEAKER) 0.04 K/ L 0.01-0.08 (test code = 417) IMMATURE GRANULOCYTES-RELATIVE 0 % 0-1 PERCENT (BEAKER) (test code = 2801) B-TYPE NATRIURETIC FACTOR (BNP)2017-09-17 11:33:00 Test Item Value Reference Range Interpretation Comments B-TYPE NATRIURETIC PEPTIDE (BEAKER) 489 pg/mL 0-100 H (test code = 700) BASIC METABOLIC [id number] 11:25:00 Test Item Value Reference Range Interpretation Comments SODIUM (BEAKER) 138 meq/L 136-145 (test code = 381) POTASSIUM (BEAKER) 3.9 meq/L 3.5-5.1 (test code = 379) CHLORIDE (BEAKER) 107 meq/L 98-107 (test code = 382) CO2 (BEAKER) (test 24 meq/L 22-29 code = 355) BLOOD UREA NITROGEN 16 mg/dL 7-21 (BEAKER) (test code = 354) CREATININE (BEAKER) 0.87 mg/dL 0.57-1.25 (test code = 358) GLUCOSE RANDOM 127 mg/dL 70-105 H (BEAKER) (test code = 652) CALCIUM (BEAKER) 9.2 mg/dL 8.4-10.2 (test code = 697) EGFR (BEAKER) (test 85 mL/min/1.73 ESTIMA DAMIAN GFR IS code = 1092) sq m NOT ACCURATE CREATININE CLEARANCE IN PREDICTING GLOMERULAR FILTRATION RATE . ESTIMATED GFR I S NOT APPLICABLE FOR DIALYSIS PATIEN TS. [id number] 11:25:00 Test Item Value Reference Range Interpretation Comments ALBUMIN (BEAKER) (test code = 1145) 3.3 g/dL 3.5-5.0 L [id number] 11:22:00 Test Item Value Reference Range Interpretation Comments PROTIME (BEAKER) (test code = 15.1 seconds 11.7-14.7 H 759) INR (BEAKER) (test code = 370) 1.2 <=5.9 PARTIAL THROMBOPLASTIN TIME 30.4 seconds 22.5-36.0 (BEAKER) (test code = 760) RECOMMENDED COUMADIN/WARFARIN INR THERAPY RANGESSTANDARD DOSE: 2.0 - 3.0 Includes: PROPHYLAXIS forvenous thrombosis, systemic embolization; TREATMENT for venous thrombosis and/or pulmonary embolus.HIGH RISK: Target INR is 2.5-3.5 for patients with mechanical heart valves.ANG, NEPHROSTOMY, PERC, EXTERNAL DRAIN 2017-09-12 18:01:00Reason for Exam:->n13.2, n20.0FINAL REPORT Fluoroscopic guided right nephrostomy tube placement, 09/11/2017. Clinical History: Right hydronephrosis, obstructing ureteral stone. Modality: Sonography and fluoroscopy Dye Boarding Machine Operator: Uriah Juares MD. Broach Setter: Tom Taylor MD. Sedation: Versed 1.0 mg and fentanyl 50 mcg was given intravenously for conscious sedation. Vital signs were monitored throughout the procedure by a nurse, and remained stable. Physician intra- service time was 35 minutes. Estimated Blood Loss: [...] soft tissue tract was dilated to 8 Kinyarwanda. A 8.5 Kinyarwanda drainage catheter was placed into the right [...] guided right nephrostomy tube placement. Signed: Uriah Juares MDRep[facility] Verified Date/Time: 09/12/2017 18:01:37 Reading Location: [place] [address] Angio Body Reading Room [id number] 06:17:00 Test Item Value Reference Range Interpretation Comments PROTIME (BEAKER) (test code = 14.8 seconds 11.7-14.7 H 759) INR (BEAKER) (test code = 370) 1.2 <=5.9 PARTIAL THROMBOPLASTIN TIME 31.4 seconds 22.5-36.0 (BEAKER) (test code = 760) RECOMMENDED COUMADIN/WARFARIN INR THERAPY RANGESSTANDARD DOSE: 2.0 - 3.0 Includes: PROPHYLAXIS forvenous thrombosis, systemic embolization; TREATMENT for venous thrombosis and/or pulmonary embolus.HIGH RISK: Target INR is 2.5-3.5 for patients with mechanical heart valves.PLATELET [id number] 06:09:00 Test Item Value Reference Range Interpretation Comments PLATELET COUNT (BEAKER) (test 111 K/CU MM 150-450 L code = 756) BASIC METABOLIC [id number] 10:17:00 Test Item Value Reference Range Interpretation Comments SODIUM (BEAKER) 138 meq/L 136-145 (test code = 381) POTASSIUM (BEAKER) 4.2 meq/L 3.5-5.1 (test code = 379) CHLORIDE (BEAKER) 105 meq/L 98-107 (test code = 382) CO2 (BEAKER) (test 24 meq/L 22-29 code = 355) BLOOD UREA NITROGEN 13 mg/dL 7-21 (BEAKER) (test code = 354) CREATININE (BEAKER) 0.86 mg/dL 0.57-1.25 (test code = 358) GLUCOSE RANDOM 117 mg/dL 70-105 H (BEAKER) (test code = 652) CALCIUM (BEAKER) 9.3 mg/dL 8.4-10.2 (test code = 697) EGFR (BEAKER) (test 86 mL/min/1.73 ESTIMA DAMIAN GFR IS code = 1092) sq m NOT ACCURATE CREATININE CLEARANCE IN PREDICTING GLOMERULAR FILTRATION RATE . ESTIMATED GFR I S NOT APPLICABLE FOR DIALYSIS PATIEN TS. CBC W/PLT COUNT & AUTO [id number] 09:49:00 Test Item Value Reference Range Interpretation Comments WHITE BLOOD CELL COUNT (BEAKER) 7.0 K/ L 3.5-10.5 (test code = 775) RED BLOOD CELL COUNT (BEAKER) 3.93 M/ L 4.63-6.08 L (test code = 761) HEMOGLOBIN (BEAKER) (test code = 11.0 GM/DL 13.7-17.5 L 410) HEMATOCRIT (BEAKER) (test code = 34.8 % 40.1-51.0 L 411) MEAN CORPUSCULAR VOLUME (BEAKER) 88.5 fL 79.0-92.2 (test code = 753) MEAN CORPUSCULAR HEMOGLOBIN 28.0 pg 25.7-32.2 (BEAKER) (test code = 751) MEAN CORPUSCULAR HEMOGLOBIN CONC 31.6 GM/DL 32.3-36.5 L (BEAKER) (test code = 752) RED CELL DISTRIBUTION WIDTH 17.4 % 11.6-14.4 H (BEAKER) (test code = 412) PLATELET COUNT (BEAKER) (test 121 K/CU MM 150-450 L code = 756) MEAN PLATELET VOLUME (BEAKER) 10.9 fL 9.4-12.4 (test code = 754) NUCLEATED RED BLOOD CELLS 0 /100 WBC 0-0 (BEAKER) (test code = 413) NEUTROPHILS RELATIVE PERCENT 64 % (BEAKER) (test code = 429) LYMPHOCYTES RELATIVE PERCENT 13 % (BEAKER) (test code = 430) MONOCYTES RELATIVE PERCENT 15 % (BEAKER) (test code = 431) EOSINOPHILS RELATIVE PERCENT 6 % (BEAKER) (test code = 432) BASOPHILS RELATIVE PERCENT 1 % (BEAKER) (test code = 437) NEUTROPHILS ABSOLUTE COUNT 4.51 K/ L 1.78-5.38 (BEAKER) (test code = 670) LYMPHOCYTES ABSOLUTE COUNT 0.93 K/ L 1.32-3.57 L (BEAKER) (test code = 414) MONOCYTES ABSOLUTE COUNT (BEAKER) 1.06 K/ L 0.30-0.82 H (test code = 415) EOSINOPHILS ABSOLUTE COUNT 0.41 K/ L 0.04-0.54 (BEAKER) (test code = 416) BASOPHILS ABSOLUTE COUNT (BEAKER) 0.05 K/ L 0.01-0.08 (test code = 417) IMMATURE GRANULOCYTES-RELATIVE 1 % 0-1 PERCENT (BEAKER) (test code = 2801) CT, CTA, [id number] 16:05:00Addendum BeginsREPORT STATUS:A Addendum: I reviewed the [...] MDReport Verified Date/Time: 08/02/2017 16:05:09 Reading Location: [facility] [address] Angio Body Reading RoomAddendum EndsFINAL REPORT CT angiography of the thoracoabdominal aorta and pelvic arteries, 02 August 2017 INDICATION: This is a 76 years old male, with a diagnosis of aortic stenosis, presents for preprocedure TAVR assessment. This study is performed in attempt to avoid invasive procedure. Technique: Spiral acquisition before and during contrast administration using a Tony multidetector CT scanner. Multiplanar 3- D volume rendering reformation was performed using independent workstation interactively by the dictating physician and the 3-D specialist. The amount of contrast use and method of administration can be found in the scanned Epic document. This exam was performed according to our departmental dose- optimisation programme, which includes automated exposure control, adjustment [...] sternum, at image 121. The right internal mamm wilian artery is robinson. There is a bypass graft seen to [...] the pelvic arteries are seen to be robinson, with calcific atherosclerosis identified. See below for [...] degrees. The angle of delivery is approximately MOHAWK 2 CAU 5. A vascular graft is seen in the infrarenal abdominal aorta. The minimum and the perpendicular left common iliac artery measures 7.7 and 8.1 mm, respectively with scol-vw-feyuvytt tortuosity and moderate calcific atherosclerosis present. The minimum and the perpendicular left external iliac artery measures 7.3 and 8.7 mm, respectively with mild to moderate tortuosity and mild calcific and noncalcific atherosclerosis present. The minimum and the perpendicular left femoral artery measures 6.4 and 6.7 mm, respectively with mild tortuosity and mild calcific atherosclerosis present. The minimum and the perpendicular right common iliac ar kennedi measures 6.4 and 9.3 mm, respectively with moderate to significant tortuosity and moderate focal calcific atherosclerosis present. The minimum and the perpendicular right external iliac artery measures 5.8 and 6.9 mm, respectively with minimal tortuosity and minimal calcific atherosclerosis p resent. The minimum and the perpendicular right femoral artery measures 4.5 and 7.6 mm, respectivelywith mild tortuosity and vnrm-gv-lfyuuppr focal calcific atherosclerosis present. NONVASCULAR: Thevisualised thyroid [...] the ureter/bladder. There are also smaller stones zena ntified in the right kidney as well. There [...] An addendum will be dictated by the [employer] Radiologist regarding the nonvascular findings. Signed: Basilio Treadwell MDReport Verified Date/Time: 08/02/2017 15:10:05 Reading Location: [place] [address], CTA [id number] 16:05:00Addendum BeginsREPORT STATUS:A Addendum: I reviewed the [...] MDReport Verified Date/Time: 08/02/2017 16:05:09 Reading Location: [facility] P[address] Angio Body Reading RoomAddendum EndsFINAL REPORT CT angiography of the thoracoabdominal aorta and pelvic arteries, 02 August 2017 INDICATION: This is a 76 years old male, with a diagnosis of aortic stenosis, presents for preprocedure TAVR assessment. This study is performed in attempt to avoid invasive procedure. Technique: Spiral acquisition before and during contrast administration using a Tony multidetector CT scanner. Multiplanar 3- D volume rendering reformation was performed using independent workstation interactively by the dictating physician and the 3-D specialist. The amount of contrast use and method of administration can be found in the scanned Epic document. This exam was performed according to our departmental dose- optimisation programme, which includes automated exposure control, adjustment [...] sternum, at image 121. The right internal mamm wilian artery is robinson. There is a bypass graft seen to [...] the pelvic arteries are seen to be robinson, with calcific atherosclerosis identified. See below for [...] degrees. The angle of delivery is approximately MOHAWK 2 CAU 5. A vascular graft is seen in the infrarenal abdominal aorta. The minimum and the perpendicular left common iliac artery measures 7.7 and 8.1 mm, respectively with vdcy-of-vanvmbes tortuosity and moderate calcific atherosclerosis present. The minimum and the perpendicular left external iliac artery measures 7.3 and 8.7 mm, respectively with mild to moderate tortuosity and mild calcific and noncalcific atherosclerosis present. The minimum and the perpendicular left femoral artery measures 6.4 and 6.7 mm, respectively with mild tortuosity and mild calcific atherosclerosis present. The minimum and the perpendicular right common iliac ar kennedi measures 6.4 and 9.3 mm, respectively with moderate to significant tortuosity and moderate focal calcific atherosclerosis present. The minimum and the perpendicular right external iliac artery measures 5.8 and 6.9 mm, respectively with minimal tortuosity and minimal calcific atherosclerosis p resent. The minimum and the perpendicular right femoral artery measures 4.5 and 7.6 mm, respectivelywith mild tortuosity and uyyt-ti-ptcikjwr focal calcific atherosclerosis present. NONVASCULAR: Thevisualised thyroid [...] the ureter/bladder. There are also smaller stones zena ntified in the right kidney as well. There [...] An addendum will be dictated by the [employer] Radiologist regarding the nonvascular findings. Signed: Basilio Treadwell [facility] Ver[facility] Date/Time: 08/02/2017 15:10:05 Reading Location: [place] [id number] Cardiology MRI -[id number] 12:32:00 Test Item Value Reference Range Interpretation Comments POC-CREATININE 0.9 mg/dL 0.6-1.3 TESTED AT [facility] 67[address] ([facility]) (test [place] code = 1859) [address] POC-EGFR ([facility]) 82 mL/min/1.73M2 (test code = 1860) PARATHYROID [id number] 13:34:00 Test Item Value Reference Range Interpretation Comments Ca Ion WB (test code = Ca Ion WB) 1.03 1.05-1.25 [facility] [id number] 13:34:00 Test Item Value Reference Range Interpretation Comments Ca Norm WB (test code = Ca Norm WB) 1.07 1.05-1.25 [id number] 08:29:00 Test Item Value Reference Range Interpretation Comments Platelet (test code = Platelet) 138 133-450 [facility] [id number] 08:29:00 Test Item Value Reference Range Interpretation Comments RDW (test code = RDW) 14.7 11.5-14.5 [facility]N[id number] 08:29:00 Test Item Value Reference Range Interpretation Comments Hgb (test code = Hgb) 9.2 14.0-18.0 [id number] 08:29:00 Test Item Value Reference Range Interpretation Comments Hct (test code = Hct) 26.9 42.0-54.0 [facility] H[id number] 08:29:00 Test Item Value Reference Range Interpretation Comments WBC (test code = WBC) 7.3 3.7-10.4 [id number] 08:29:00 Test Item Value Reference Range Interpretation Comments RBC (test code = RBC) 2.86 4.70-6.10 [facility] HospitalannCHEM [id number] 08:29:00 Test Item Value Reference Range Interpretation Comments Creatinine Lvl (test code = Creatinine 0.76 0.50-1.40 Lvl) [facility]2017-10-01 08:29:00 Test Item Value Reference Range Interpretation Comments BUN (test code = BUN) 14 7-22 [facility] [facility]2017-10-01 08:29:00 Test Item Value Reference Range Interpretation Comments Glucose Lvl (test code = Glucose Lvl) 103 70-99 [facility]2017-10-01 08:29:00 Test Item Value Reference Range Interpretation Comments AGAP (test code = AGAP) 13.8 10.0-20.0 [facility]2017-10-01 08:29:00 Test Item Value Reference Range Interpretation Comments Calcium Lvl (test code = Calcium Lvl) 6.7 8.5-10.5 [facility]2017-10-01 08:29:00 Test Item Value Reference Range Interpretation Comments Potassium Lvl (test code = Potassium 3.8 3.5-5.1 Lvl) [facility]2017-10-01 08:29:00 Test Item Value Reference Range Interpretation Comments Sodium Lvl (test code = Sodium Lvl) 138 135-145 [facility]2017-10-01 08:29:00 Test Item Value Reference Range Interpretation Comments CO2 (test code = CO2) 23 24-32 [facility]2017-10-01 08:29:00 Test Item Value Reference Range Interpretation Comments Chloride Lvl (test code = Chloride Lvl) 105 95-109 [facility]2017-10-01 08:29:00 Test Item Value Reference Range Interpretation Comments eGFR (test code = eGFR) 89 [facility]2017-10-01 08:29:00 Test Item Value Reference Range Interpretation Comments Phosphorus (test code = Phosphorus) 1.9 2.5-4.5 [facility]2017-10-01 08:29:00 Test Item Value Reference Range Interpretation Comments Magnesium Lvl (test code = Magnesium 2.6 1.8-2.4 Lvl) [facility]inteJwkqyomZRKRQDOSJJ0880-60-65 08:29:00 Test Item Value Reference Range Interpretation Comments Lymphocytes (test code = Lymphocytes) 13.1 20.0-40.0 [facility] PointeKqsdtifODNUNYYMHD7129-78-15 08:29:00 Test Item Value Reference Range Interpretation Comments Segs (test code = Segs) 66.5 45.0-75.0 [facility] PointeUiuwskaWADEJLARKB0058-09-84 08:29:00 Test Item Value Reference Range Interpretation Comments Eosinophils # (test code 0.3 See_Comment [A utomated message] The = Eosinophils #) system whic h generated this result tra nsmitted reference range : <=0.5. The reference r mono was not used to int erpret this result as normal/abnormal . [facility] PointeQjnoltzDAWHTQOINT0976-77-93 08:29:00 Test Item Value Reference Range Interpretation Comments Eosinophils (test code = 3.6 See_Comment [A utomated message] The Eosinophils) system which ge nerated this result tra nsmitted reference range : <=4.0. The reference r mono was not used to int erpret this result as normal/abnormal . [facility] PointePoizqvqEEPWRLVEME0347-26-31 08:29:00 Test Item Value Reference Range Interpretation Comments Monocytes (test code = Monocytes) 16.3 2.0-12.0 [facility] PointeSyvwbpoDARDCETSAW5321-75-82 08:29:00 Test Item Value Reference Range Interpretation Comments Basophils (test code = 0.5 See_Comment [Aut omated message] The Basophils) system which ge nerated this result tra nsmitted reference range : <=1.0. The reference r mono was not used to int erpret this result as normal/abnormal . [facility] PointeIxrnjtwGRBFDRIBNX9967-64-32 08:29:00 Test Item Value Reference Range Interpretation Comments Monocytes # (test code 1.2 See_Comment [Aut omated message] The = Monocytes #) system which generated this result tra nsmitted reference range : <=0.8. The reference r mono was not used to int erpret this result as normal/abnormal . [facility] PointeXirddtiOJZISBJXWD6093-67-14 08:29:00 Test Item Value Reference Range Interpretation Comments Lymphocytes # (test code = Lymphocytes 1.0 1.0-5.5 #) [facility] PointeUdfifuuZKSXDNCEOO3248-82-36 08:29:00 Test Item Value Reference Range Interpretation Comments Segs-Bands # (test code = Segs-Bands #) 4.9 1.5-8.1 [facility] PointeUscyzptGEOTCKVMXG0780-82-10 08:29:00 Test Item Value Reference Range Interpretation Comments MCH (test code = MCH) 32.0 pg 27.0-31.0 [facility] PointeNoivvytAYXWZEAWGG6307-88-51 08:29:00 Test Item Value Reference Range Interpretation Comments MCHC (test code = MCHC) 34.0 32.0-36.0 [facility] PointeBkhcdpfTDWKVWRAGI0589-81-55 08:29:00 Test Item Value Reference Range Interpretation Comments MCV (test code = MCV) 94.0 80.0-94.0 [facility] PointeKkvrvnpUCXCONXTWO0648-25-88 08:29:00 Test Item Value Reference Range Interpretation Comments MPV (test code = MPV) 9.1 7.4-10.4 [facility]2017-09-30 06:25:00 Test Item Value Reference Range Interpretation Comments Magnesium Lvl (test code = Magnesium 2.7 1.8-2.4 Lvl) [facility]2017-09-30 06:25:00 Test Item Value Reference Range Interpretation Comments Phosphorus (test code = Phosphorus) 1.8 2.5-4.5 [facility]2017-09-30 06:25:00 Test Item Value Reference Range Interpretation Comments eGFR (test code = eGFR) 85 [facility]2017-09-30 06:25:00 Test Item Value Reference Range Interpretation Comments CO2 (test code = CO2) 28 24-32 [facility]2017-09-30 06:25:00 Test Item Value Reference Range Interpretation Comments Calcium Lvl (test code = Calcium Lvl) 8.0 8.5-10.5 [facility]2017-09-30 06:25:00 Test Item Value Reference Range Interpretation Comments Chloride Lvl (test code = Chloride Lvl) 104 95-109 [facility]2017-09-30 06:25:00 Test Item Value Reference Range Interpretation Comments Potassium Lvl (test code = Potassium 4.1 3.5-5.1 Lvl) [facility]2017-09-30 06:25:00 Test Item Value Reference Range Interpretation Comments Sodium Lvl (test code = Sodium Lvl) 139 135-145 [facility]2017-09-30 06:25:00 Test Item Value Reference Range Interpretation Comments BUN (test code = BUN) 16 7-22 [facility]2017-09-30 06:25:00 Test Item Value Reference Range Interpretation Comments Creatinine Lvl (test code = Creatinine 0.83 0.50-1.40 Lvl) [facility]2017-09-30 06:25:00 Test Item Value Reference Range Interpretation Comments Glucose Lvl (test code = Glucose Lvl) 115 70-99 [facility]2017-09-30 06:25:00 Test Item Value Reference Range Interpretation Comments AGAP (test code = AGAP) 11.1 10.0-20.0 [facility] PointeYgyecgsFDOQQMOYYD5321-35-26 06:25:00 Test Item Value Reference Range Interpretation Comments Segs-Bands # (test code = Segs-Bands #) 5.2 1.5-8.1 [facility] PointeFxhmazcROTGTZVCSC9742-03-65 06:25:00 Test Item Value Reference Range Interpretation Comments Monocytes (test code = Monocytes) 16.1 2.0-12.0 [place] 262997-09-30 06:25:00 Test Item Value Reference Range Interpretation Comments Basophils (test code = 0.3 See_Comment [Aut omated message] The Basophils) system which ge nerated this result tra nsmitted reference range : <=1.0. The reference r mono was not used to int erpret this result as normal/abnormal . [facility] PointeFzfhudlGNXQQXWPFQ2382-45-66 06:25:00 Test Item Value Reference Range Interpretation Comments Eosinophils (test code = 3.5 See_Comment [A utomated message] The Eosinophils) system which ge nerated this result tra nsmitted reference range : <=4.0. The reference r mono was not used to int erpret this result as normal/abnormal . [facility] PointeIntmcdzKZIDFVZEVA5008-70-21 06:25:00 Test Item Value Reference Range Interpretation Comments Lymphocytes (test code = Lymphocytes) 9.2 20.0-40.0 [facility] PointeZmngjmsXHOWTECEAK6509-70-14 06:25:00 Test Item Value Reference Range Interpretation Comments Segs (test code = Segs) 70.9 45.0-75.0 [facility] PointeQmnnjwcLEPTTLMSFH3164-03-30 06:25:00 Test Item Value Reference Range Interpretation Comments Eosinophils # (test code 0.3 See_Comment [A utomated message] The = Eosinophils #) system whic h generated this result tra nsmitted reference range : <=0.5. The reference r mono was not used to int erpret this result as normal/abnormal . [facility] PointeDowgexaXNHQXRZYLB3607-82-91 06:25:00 Test Item Value Reference Range Interpretation Comments Lymphocytes # (test code = Lymphocytes 0.7 1.0-5.5 #) [facility] PointeCqgcpghMCHQKRMBGE2237-32-10 06:25:00 Test Item Value Reference Range Interpretation Comments Monocytes # (test code 1.2 See_Comment [Aut omated message] The = Monocytes #) system which generated this result tra nsmitted reference range : <=0.8. The reference r mono was not used to int erpret this result as normal/abnormal . [facility] PointePmwizydQVDWSFTMVJ7970-14-01 06:25:00 Test Item Value Reference Range Interpretation Comments MCHC (test code = MCHC) 35.0 32.0-36.0 [facility] PointeSlqlqovLTYIYXFLUY9717-21-58 06:25:00 Test Item Value Reference Range Interpretation Comments RDW (test code = RDW) 14.9 11.5-14.5 [facility] PointeLnkgthaBINCMYUYKS6661-09-89 06:25:00 Test Item Value Reference Range Interpretation Comments Platelet (test code = Platelet) 110 133-450 [facility] PointeQfhokxcINXBGKNMEO0328-06-33 06:25:00 Test Item Value Reference Range Interpretation Comments MPV (test code = MPV) 9.4 7.4-10.4 [facility] PointeJvlatufVXLPWKBVZG0749-73-09 06:25:00 Test Item Value Reference Range Interpretation Comments RBC (test code = RBC) 2.82 4.70-6.10 [facility] PointeUllnoqnZKLLSERXXX3920-02-70 06:25:00 Test Item Value Reference Range Interpretation Comments WBC (test code = WBC) 7.4 3.7-10.4 [facility] PointeIvaplbrBTIHAZBCHF5990-39-00 06:25:00 Test Item Value Reference Range Interpretation Comments MCH (test code = MCH) 32.2 pg 27.0-31.0 [facility] PointeFefmmntOWOJNBQYXO6316-56-63 06:25:00 Test Item Value Reference Range Interpretation Comments MCV (test code = MCV) 92.2 80.0-94.0 [facility] PointeDsokzydKPOYIJXVGQ0765-59-58 06:25:00 Test Item Value Reference Range Interpretation Comments Hct (test code = Hct) 26.0 42.0-54.0 [facility] PointeLlibzzbNMTUXSOQOA6297-80-31 06:25:00 Test Item Value Reference Range Interpretation Comments Hgb (test code = Hgb) 9.1 14.0-18.0 [facility] PointeZgdnffsJTXBHLETNI4686-06-12 08:58:00 Test Item Value Reference Range Interpretation Comments INR (test code = INR) 1.29 0.85-1.17 [facility] PointeQjycovuORNALOYAYU3548-66-25 08:58:00 Test Item Value Reference Range Interpretation Comments PTT (test code = PTT) 37.7 s 22.9-35.8 [facility] PointeRxgbkadTUHKGDSVQN3008-75-84 08:58:00 Test Item Value Reference Range Interpretation Comments PT (test code = PT) 16.3 s 12.0-14.7 [facility] [id number] 08:58:00 Test Item Value Reference Range Interpretation Comments Ca Norm WB (test code = Ca Norm WB) 1.04 1.05-1.25 [facility]2017-09-29 08:58:00 Test Item Value Reference Range Interpretation Comments Ca Ion WB (test code = Ca Ion WB) 1.06 1.05-1.25 [facility]2017-09-29 08:35:00 Test Item Value Reference Range Interpretation Comments Phosphorus (test code = Phosphorus) 2.1 2.5-4.5 [facility]2017-09-29 08:35:00 Test Item Value Reference Range Interpretation Comments Magnesium Lvl (test code = Magnesium 2.1 1.8-2.4 Lvl) [facility]2017-09-29 08:35:00 Test Item Value Reference Range Interpretation Comments eGFR (test code = eGFR) 83 [facility]2017-09-29 08:35:00 Test Item Value Reference Range Interpretation Comments Glucose Lvl (test code = Glucose Lvl) 131 70-99 [facility]2017-09-29 08:35:00 Test Item Value Reference Range Interpretation Comments BUN (test code = BUN) 17 7-22 [facility]2017-09-29 08:35:00 Test Item Value Reference Range Interpretation Comments Creatinine Lvl (test code = Creatinine 0.88 0.50-1.40 Lvl) [facility]2017-09-29 08:35:00 Test Item Value Reference Range Interpretation Comments Calcium Lvl (test code = Calcium Lvl) 7.4 8.5-10.5 [facility] [id number] 08:35:00 Test Item Value Reference Range Interpretation Comments Chloride Lvl (test code = Chloride Lvl) 103 95-109 [facility]2017-09-29 08:35:00 Test Item Value Reference Range Interpretation Comments Sodium Lvl (test code = Sodium Lvl) 134 135-145 [facility]2017-09-29 08:35:00 Test Item Value Reference Range Interpretation Comments CO2 (test code = CO2) 28 24-32 [facility]2017-09-29 08:35:00 Test Item Value Reference Range Interpretation Comments Potassium Lvl (test code = Potassium 4.1 3.5-5.1 Lvl) [facility]2017-09-29 08:35:00 Test Item Value Reference Range Interpretation Comments AGAP (test code = AGAP) 7.1 10.0-20.0 [facility]WkdptvoTMZGLWEXGJLI1693-92-51 08:35:00 Test Item Value Reference Range Interpretation Comments Potassium Lvl (test code = Potassium 4.1 3.5-5.1 Lvl) [facility] PointeVctgbxfDUZIKXMVUR1579-50-15 08:35:00 Test Item Value Reference Range Interpretation Comments Eosinophils # (test code 0.2 See_Comment [A utomated message] The = Eosinophils #) system whic h generated this result tra nsmitted reference range : <=0.5. The reference r mono was not used to int erpret this result as normal/abnormal . [facility] PointeNmmgzgfTSJGCKMRWJ9197-78-63 08:35:00 Test Item Value Reference Range Interpretation Comments Eosinophils (test code = 2.5 See_Comment [A utomated message] The Eosinophils) system which ge nerated this result tra nsmitted reference range : <=4.0. The reference r mono was not used to int erpret this result as normal/abnormal . [facility] PointeHbcnvwvIWSPSEJOFO6477-88-88 08:35:00 Test Item Value Reference Range Interpretation Comments Basophils (test code = 0.5 See_Comment [Aut omated message] The Basophils) system which ge nerated this result tra nsmitted reference range : <=1.0. The reference r mono was not used to int erpret this result as normal/abnormal . [facility] PointeXemzgblHMMJTBQNDJ0355-98-65 08:35:00 Test Item Value Reference Range Interpretation Comments Segs-Bands # (test code = Segs-Bands #) 5.3 1.5-8.1 [facility] PointeJygfuyzXAZBHHAUTQ1715-44-88 08:35:00 Test Item Value Reference Range Interpretation Comments Lymphocytes # (test code = Lymphocytes 0.9 1.0-5.5 #) [facility] PointeZonkunjGJORMVXRSC8537-24-40 08:35:00 Test Item Value Reference Range Interpretation Comments Monocytes # (test code 1.3 See_Comment [Aut omated message] The = Monocytes #) system which generated this result tra nsmitted reference range : <=0.8. The reference r mono was not used to int erpret this result as normal/abnormal . [facility] PointeYtbjpvwPQQLLJOWQR9414-55-58 08:35:00 Test Item Value Reference Range Interpretation Comments Segs (test code = Segs) 68.6 45.0-75.0 [facility] PointeHttcozrAYCMTABQTA9693-66-49 08:35:00 Test Item Value Reference Range Interpretation Comments Lymphocytes (test code = Lymphocytes) 11.4 20.0-40.0 [facility] PointeCupgqilNMRQOGOTPG6923-09-76 08:35:00 Test Item Value Reference Range Interpretation Comments Monocytes (test code = Monocytes) 17.0 2.0-12.0 [facility] PointePfxeaguJBHVZYDTZD8253-54-49 08:35:00 Test Item Value Reference Range Interpretation Comments MCHC (test code = MCHC) 35.2 32.0-36.0 [facility] PointeDmaxjcwHOUEOBBVUS0820-74-10 08:35:00 Test Item Value Reference Range Interpretation Comments MPV (test code = MPV) 9.4 7.4-10.4 [facility] PointeSsoloyhUIXNHYORDC2627-28-05 08:35:00 Test Item Value Reference Range Interpretation Comments RDW (test code = RDW) 15.1 11.5-14.5 [facility] PointeIdwzkqdPWZUSFZNWP4879-37-78 08:35:00 Test Item Value Reference Range Interpretation Comments Platelet (test code = Platelet) 88 133-450 [facility] PointeDnvtymlYYYFPDIHIZ2635-80-25 08:35:00 Test Item Value Reference Range Interpretation Comments MCH (test code = MCH) 32.4 pg 27.0-31.0 [facility] ClubVwwrdvsHEBOFEABQS6081-43-28 08:35:00 Test Item Value Reference Range Interpretation Comments Hct (test code = Hct) 24.7 42.0-54.0 [facility] PointeKoiznkrRUDCGQUQJK0580-60-70 08:35:00 Test Item Value Reference Range Interpretation Comments MCV (test code = MCV) 91.8 80.0-94.0 [facility] PointeAgtyzhkFLKSAYUDBH2082-11-27 08:35:00 Test Item Value Reference Range Interpretation Comments WBC (test code = WBC) 7.8 3.7-10.4 [facility] PointeSteupzwPVAALNZMCA1086-90-90 08:35:00 Test Item Value Reference Range Interpretation Comments RBC (test code = RBC) 2.69 4.70-6.10 [facility] PointeVxdsglvPFJNGAFXWC4708-09-69 08:35:00 Test Item Value Reference Range Interpretation Comments Hgb (test code = Hgb) 8.7 14.0-18.0 [facility] [employer] [id number] 07:39:00 Test Item Value Reference Range Interpretation Comments ABO/Rh (test code = ABO/Rh) A POS [facility] [employer] [id number] 07:39:00 Test Item Value Reference Range Interpretation Comments Antibody Scrn (test Negative (02/28/17 2:39 code = Antibody Scrn) AM) [facility] ClubYdetbrxYDMRCKBDIC4229-99-64 07:39:00 Test Item Value Reference Range Interpretation Comments INR (test code = INR) 1.33 0.85-1.17 [facility] ClubTgykyjxGWDTCKJZIN7723-44-57 07:39:00 Test Item Value Reference Range Interpretation Comments PT (test code = PT) 16.7 s 12.0-14.7 [facility] ClubOmdrmhhVZECYKFBYM4918-20-29 07:39:00 Test Item Value Reference Range Interpretation Comments PTT (test code = PTT) 34.3 s 22.9-35.8 [facility] HospitalSnapTellROID UWNLLFE8097-55-40 07:39:00 Test Item Value Reference Range Interpretation Comments Ca Norm WB (test code = Ca Norm WB) 1.10 1.05-1.25 [facility] HospitalZollo REQZLMQ0237-00-40 07:39:00 Test Item Value Reference Range Interpretation Comments Ca Ion WB (test code = Ca Ion WB) 1.11 1.05-1.25 [facility]KiaknscOAGEVQXGWE8044-08-27 07:59:00 Test Item Value Reference Range Interpretation Comments PTT (test code = PTT) 30.7 s 22.9-35.8 [facility] CenterDdtglrqFINUDQUNSZ6968-97-79 16:27:00 Test Item Value Reference Range Interpretation Comments INR (test code = INR) 1.54 0.85-1.17 [facility] CenterEjveawgZZEDWHJLAI5423-82-41 16:27:00 Test Item Value Reference Range Interpretation Comments PT (test code = PT) 18.8 s 12.0-14.7 [facility] ClubBACTERIAL - DBGULXHJ0580-03-62 16:24:00 Test Item Value Reference Range Interpretation Comments MRSA by PCR (test Negative (02/26/17 11:24 code = MRSA by PCR) AM) [facility] ClubCHEM [id number] 16:24:00 Test Item Value Reference Range Interpretation Comments Lactic Acid Lvl (test code = Lactic 5.5 0.5-2.2 Acid Lvl) [facility] PointeVkvgqcdZSIYYGOVXE9731-89-22 16:24:00 Test Item Value Reference Range Interpretation Comments RBC Morph (test code = Normal (02/26/17 11:24 RBC Morph) AM) [facility] PointeVwablnpFUQKOKYHUZ1689-68-33 16:24:00 Test Item Value Reference Range Interpretation Comments Plt Morph (test code = Normal (02/26/17 11:24 Plt Morph) AM) [facility] [id number] 14:46:00 Test Item Value Reference Range Interpretation Comments Cryo product (test Product available code = Cryo product) (02/26/17 9:46 AM) [facility] CenterAutoGnomics BANK [id number] 14:43:00 Test Item Value Reference Range Interpretation Comments FFP product (test code Product available = FFP product) (02/26/17 9:43 AM) [facility] [employer] [id number] 14:42:00 Test Item Value Reference Range Interpretation Comments Antibody Scrn (test Negative (02/25/17 9:42 code = Antibody Scrn) AM) [facility] [id number] 14:42:00 Test Item Value Reference Range Interpretation Comments ABO/Rh (test code = ABO/Rh) A POS [facility] CenterIiaeltzFPIONCBXNZ8480-81-74 14:05:00 Test Item Value Reference Range Interpretation Comments Basophils # (test code 0.1 See_Comment [Aut omated message] The = Basophils #) system which generated this result tra nsmitted reference range : <=0.2. The reference r mono was not used to int erpret this result as normal/abnormal . [facility] AND [id number] 14:05:00 Test Item Value Reference Range Interpretation Comments UA Sq Epi (test code = UA Sq Epi) None Seen [facility] AND [id number] 14:05:00 Test Item Value Reference Range Interpretation Comments UA Urobilinogen (test code = UA <=1.0 mg/dL 0.1-1.0 Urobilinogen) [facility] AND [id number] 14:05:00 Test Item Value Reference Range Interpretation Comments UA Leuk Est (test code Small *ABN*(02/25/17 = UA Leuk Est) 9:05 AM) [facility] AND [id number] 14:05:00 Test Item Value Reference Range Interpretation Comments UA WBC (test code = 20 See_Comment [Automa damian message] The UA WBC) system which ge nerated this result transmit damian reference range : <=5. The reference range was not used to interpr et this result as martinez l/abnormal. [facility] AND [id number] 14:05:00 Test Item Value Reference Range Interpretation Comments UA RBC (test code = 3 See_Comment [Automa damian message] The UA RBC) system which ge nerated this result transmit damian reference range : <=2. The reference range was not used to interpr et this result as martinez l/abnormal. [facility] AND [id number] 14:05:00 Test Item Value Reference Range Interpretation Comments UA Mucus (test code = UA Mucus) Few /LPF [facility] AND [id number] 14:05:00 Test Item Value Reference Range Interpretation Comments UA Ketones (test code = UA Negative mg/dL Ketones) [facility] AND [id number] 14:05:00 Test Item Value Reference Range Interpretation Comments UA Bili (test code = Negative *NA*(02/25/17 UA Bili) 9:05 AM) [facility] AND [id number] 14:05:00 Test Item Value Reference Range Interpretation Comments UA Blood (test code = Negative (02/25/17 9:05 UA Blood) AM) [facility] AND [id number] 14:05:00 Test Item Value Reference Range Interpretation Comments UA Nitrite (test code Negative (02/25/17 9:05 = UA Nitrite) AM) [facility] AND [id number] 14:05:00 Test Item Value Reference Range Interpretation Comments UA Color (test code = Yellow *NA*(02/25/17 UA Color) 9:05 AM) [facility] AND [id number] 14:05:00 Test Item Value Reference Range Interpretation Comments UA Turbidity (test code = Clear (02/25/17 9:05 UA Turbidity) AM) [facility] AND [id number] 14:05:00 Test Item Value Reference Range Interpretation Comments UA Spec Grav (test code = UA Spec Grav) 1.013 [facility] AND [id number] 14:05:00 Test Item Value Reference Range Interpretation Comments UA Protein (test code = UA Negative mg/dL Protein) [facility] AND [id number] 14:05:00 Test Item Value Reference Range Interpretation Comments UA pH (test code = UA pH) 6.0 5.0-8.0 [facility] AND [id number] 14:05:00 Test Item Value Reference Range Interpretation Comments UA Glucose (test code = UA Negative mg/dL Glucose) [facility]
[2021-08-09 16:47] LABS: Absolute Lymphocytes (CBC) 0.9 K/uL (0.7-4.9); Hematocrit 29.7 % (39.6-49.0); Lymphocytes % 15.1 % (15.3-44.8); MPV 8.6 fL (7.6-11.3); RBC Red Blood Cell Count 3.49 M/uL (4.33-5.43)
[2021-08-09 16:49] LABS: Protime INR 1.19
[2021-08-09] MEDS ORDERED: NA CHLORIDE 0.9% 500 ML ONE (16:51)
[2021-08-09] MEDS ORDERED: MECLIZINE HCL 12.5 MG TAB ONE (16:54)
--- NOTE | 2021-08-09 17:10 | RAD REPORT ---
EXAM DESCRIPTION: CT - Head Brain Wo Cont - 08/09/2021 4:58 pm CLINICAL HISTORY: DIZZINESS COMPARISON: <Comparisons> TECHNIQUE: Axial 5 mm thick images of the head were obtained without IV contrast. All CT scans are performed using dose optimization technique as appropriate and may include automated exposure control or mA/KV adjustment according to patient size. FINDINGS: A 5 x 3.5 x 2.5 centimeter intraparenchymal left parietal hematoma is present. There is a rim of surrounding edema. No underlying mass or vascular malformation is identifiable. No cortical ba sed infarction. No cortical edema or sulcal effacement. Mass affect around the hematoma is mild. Ther e is no midline shift. Patient has underlying mild to moderate atrophy and moderate chronic ischemic change. No abnormal extra-axial fluid collections. Ventricles are in proportion to the volume loss. Mastoid air cells and visualized portions of the paranasal sinuses are clear. No acute bony findings. IMPRESSION: Left parietal lobe 5 x 3.5 x 2.5 cm acute intraparenchymal hematoma. Mass-effect is relatively mild with no midline shift. No other acute intracranial finding.
[2021-08-09 17:11] LABS: Albumin 2.6 g/dL (3.4-5.0); Bilirubin Direct 0.2 mg/dL (0-0.2); Bilirubin Total 0.6 mg/dL (0.2-1.0); Magnesium 2.2 mg/dL (1.8-2.4); Protein, Total 7.1 g/dL (6.4-8.2); Troponin High Sensitivity 15.2 pg/mL (<58.9)
--- NOTE | 2021-08-09 17:16 | RAD REPORT ---
EXAM DESCRIPTION: RAD - Chest Single View - 08/09/2021 5:08 pm CLINICAL HISTORY: dizziness COMPARISON: Portable chest 02/14/2018 TECHNIQUE: AP portable chest image was obtained 08/09/2021 5:08 pm . FINDINGS: Chronic interstitial lung disease is present potentially masking edema or infiltrate. Righ t pleural effusion is present obscuring the right hemidiaphragm and right heart border. Right base at electasis present. Mass or infiltrate at the right base could be masked. Sternotomy wires are in place. Cardiomegaly and mild vascular engorgement present. No pneumothorax. N o acute bony abnormality seen. No acute aortic findings suspected. IMPRESSION: Small to moderate-sized right pleural effusion with right base atelectasis. Right base i nfiltrate or mass could be masked. Cardiomegaly and vascular engorgement are present along with prominent interstitial markings. Mild fa ilure or volume overload should be considered. Interstitial infiltrates could be masked by the chroni c pattern.
--- NOTE | 2021-08-09 17:26 | EDPHYS ---
Physician Documentation [facility] Name: Manfred Mathews Age: 80 yrs Sex: Male : 1940 Arrival Date: 08/09/2021 Time: 16:22 Bed 23 Private MD: JOCELYN Physician Alexandro Barrios HPI: 08/09 16:30 This 80 yrs old Male presents to ER via EMS with complaints of Dizziness. cp 16:30 The patient presents with feeling faint, generalized weakness. Onset: The cp symptoms/episode began/occurred suddenly, today. Associated signs and symptoms: Pertinent positives: bowel incontinence. Patient's baseline: Neuro: alert and fully oriented, Motor: no deficits, Ambulation: walks without assistance, Speech: normal, The patient has a previous history of TIA. 17:25 reports calling EMS after finding patient standing in hallway complaining of cp dizziness and after having episode of bowel incontinence. Patient reports concern that he passed out. Historical: - Home Meds: 16:31 aspirin 81 mg Oral chew 1 tab once daily [Active]; lisinopril 5 mg Oral tab 1 tab twice lr4 a day [Active]; Lactobacillus acidophilus Oral [Active]; rosuvastatin 5 mg Oral tab 1 tab once daily [Active]; tamsulosin 0.4 mg Oral cp24 1 cap once daily [Active]; oxybutynin chloride 5 mg Oral tab 1 tab 3 times per day [Active]; docusate sodium 100 mg Oral tab 1 tab 2 times per day [Active]; - PMHx: 16:31 CAD; GALLSTONES; Hyperlipidemia; Kidney stones; Hypertension; Transient cerebral lr4 ischemia; Abdominal aortic aneurysm; - PSHx: 16:31 Coronary artery bypass graft; lr4 - Immunization history:: Adult Immunizations up to date, Client reports receiving the 2nd dose of the Covid vaccine, Date received: 2020. - Social history:: Smoking status: Patient/guardian denies using tobacco, the patient reports quitting approximately 10 years ago. ROS: 16:35 Constitutional: Negative for body aches, chills, fever, poor PO intake. cp 16:35 Eyes: Negative for vision loss, visual disturbance. cp 16:35 ENT: Negative for drainage from ear(s), ear pain, sore throat, difficulty swallowing, difficulty handling secretions. 16:35 Cardiovascular: Negative for chest pain, edema, palpitations. 16:35 Respiratory: Negative for cough, shortness of breath, wheezing. 16:35 Abdomen/GI: Positive for bowel incontinence, Negative for abdominal pain, nausea, vomiting, and diarrhea. 16:35 Back: Negative for pain at rest, pain with movement. 16:35 : Negative for urinary symptoms, bladder incontinence. 16:35 Neuro: Positive for dizziness, near syncope, Negative for headache, numbness. 16:35 All other systems are negative. Exam: 16:40 Constitutional: The patient appears in no acute distress, alert, awake, cp non-diaphoretic, non-toxic, well developed, well nourished. 16:40 Head/Face: Normocephalic, atraumatic. cp 16:40 Eyes: Periorbital structures: appear normal, Pupils: equal, round, and reactive to light and accomodation, Extraocular movements: intact throughout, Conjunctiva: normal, no exudate, no injection, Sclera: no appreciated abnormality, Lids and lashes: appear normal, bilaterally. 16:40 ENT: External ear(s): are unremarkable, Nose: is normal, Mouth: Lips: moist, Oral mucosa: moist, Posterior pharynx: Airway: no evidence of obstruction, patent. 16:40 Neck: C-spine: vertebral tenderness, is not appreciated, crepitus, is not appreciated, ROM/movement: is normal, is supple, without pain, no range of motions limitations. 16:40 Chest/axilla: Inspection: normal, Palpation: is normal, no crepitus, no tenderness. 16:40 Cardiovascular: Rate: normal, Rhythm: regular, Edema: is not appreciated, JVD: is not appreciated. 16:40 Respiratory: the patient does not display signs of respiratory distress, Respirations: normal, no use of accessory muscles, no retractions, labored breathing, is not present, Breath sounds: are clear throughout, no decreased breath sounds, no stridor, no wheezing. 16:40 Abdomen/GI: Inspection: abdomen appears normal, Palpation: abdomen is soft and non-tender, in all quadrants. 16:40 Back: pain, is absent, ROM is normal. 16:40 Neuro: Orientation: to person, place, situation, Mentation: able to follow commands, slow to respond, Cerebellar function: Romberg testing is negative, normal finger to nose testing, Motor: moves all fours, general weakness with no focal deficits, Sensation: is normal. 17:14 ECG was reviewed by the Attending Physician. Vital Signs: 16:24 BP 143 / 74; Pulse 84; Resp 26; Temp 97.9; Pulse Ox 94% on R/A; Weight 81.65 kg; Height lr4 5 ft. 7 in. (170.18 cm); Pain 0/10; 16:35 BP 157 / 73; Pulse 87; Resp 18; Pulse Ox 94% on R/A; lr4 17:10 BP 183 / 89; Pulse 96; Resp 19; Pulse Ox 97% on 2 lpm NC; Pain 0/10; eo2 17:30 BP 195 / 97; Pulse 95; Resp 18; Pulse Ox 95% ; Pain 0/10; eo2 18:00 BP 168 / 79; Pulse 76; Resp 15; Pulse Ox 99% 4 lpm ; Pain 0/10; eo2 18:30 BP 132 / 77; Pulse 77; Resp 18; Pulse Ox 99% on R/A; lr4 18:49 BP 141 / 90; Pulse 82; Resp 18; Pulse Ox 98% on R/A; lr4 16:24 Body Mass Index 28.19 (81.65 kg, 170.18 cm) lr4 MDM: 16:24 Patient medically screened. [facility] 17:30 Data reviewed: vital signs, nurses notes, lab test result(s), EKG, radiologic studies, cp CT scan, plain films, I have discussed the patient's presentation/case with the attending Emergency Department Physician;. 17:30 Test interpretation: by ED physician or midlevel provider: ECG, plain radiologic cp studies. 18:20 ED course: DR Barrios spoke with neurology, DR Knox, who will accept patient to [facility]. 08/09 16:25 Order name: Basic Metabolic Panel; Complete Time: 17:12 cp 08/09 16:25 Order name: CBC with Diff; Complete Time: 16:49 cp 08/09 16:49 Interpretation: Normal except: RBC 3.49; HGB 9.6; HCT 29.7; MCV 85.0; PLT 139; RDW cp 19.0; LYM% 15.1; MN% 14.7. 08/09 16:25 Order name: LFT's; Complete Time: 17:12 cp 03 16:25 Order name: Magnesium; Complete Time: 17:12 cp / 16:25 Order name: NT PRO-BNP; Complete Time: 17:12 cp / 16:25 Order name: PT-INR; Complete Time: 16:49 cp 08/09 16:25 Order name: Troponin HS; Complete Time: 17:12 cp 08/09 16:25 Order name: XRAY Chest (1 view); Complete Time: 18:00 cp 08/09 16:25 Order name: Urine Microscopic Only cp 08/09 16:26 Order name: CT Head Brain wo Cont; Complete Time: 17:12 cp 08/09 17:23 Order name: COVID-19 SARS RT PCR (Document "Date of Onset" if Symptomatic) bd 08/09 18:37 Order name: Urine Dipstick-Ancillary EDMS 08/09 16:25 Order name: EKG; Complete Time: 16:26 cp 08/09 16:25 Order name: Cardiac monitoring; Complete Time: 16:53 cp 08/09 16:25 Order name: EKG - Nurse/Tech; Complete Time: 17:22 cp 08/09 16:25 Order name: IV Saline Lock; Complete Time: 16:53 cp 08/09 16:25 Order name: Labs collected and sent; Complete Time: 16:53 cp 08/09 16:25 Order name: O2 Per Protocol; Complete Time: 16:53 cp 08/09 16:25 Order name: O2 Sat Monitoring; Complete Time: 16:53 cp 08/09 17:50 Order name: Misc. Order: needs to potty; Complete Time: 18:48 jmm EC:14 Rate is 88 beats/min. Rhythm is regular. AL interval is prolonged at 228 msec. QRS cp interval is normal. QT interval is normal. T waves are Inverted in lead aVL. Interpreted by me. Reviewed by me. Administered Medications: 16:53 Drug: Meclizine 25 mg Route: PO; lr4 18:18 Follow up: Response: No adverse reaction eo2 18:27 Follow up: Response: No adverse reaction lr4 17:08 Drug: NS 0.9% 250 ml Route: IV; Rate: bolus; Site: right antecubital; lr4 17:30 Follow up: Response: No adverse reaction; IV Status: Completed infusion; IV Intake: eo2 250ml 18:28 Follow up: IV Status: Completed infusion lr4 17:30 Drug: NS 0.9% 250 ml Route: IV; Rate: 125 ml/hr; Site: right antecubital; eo2 18:28 Follow up: IV Status: Completed infusion lr4 17:44 Drug: Labetalol 10 mg Route: IVP; Site: right antecubital; eo2 18:13 Follow up: Response: No adverse reaction; Temperature is decreased eo2 18:30 Drug: Labetalol 10 mg Route: IVP; Infused Over: 2 mins; Site: right antecubital; lr4 18:48 Follow up: Response: Blood pressure is lowered lr4 Disposition Summary: 08/09/21 17:25 Transfer Ordered Reason: Higher level of care cp Condition: Stable cp Problem: new cp Symptoms: are unchanged cp Transfer Location: [facility](08/09/21 18:26) cp Accepting Physician: DR Knox(08/09/21 18:53) lr4 Diagnosis - Nontraumatic intracerebral hemorrhage, unspecified cp Forms: - Medication Reconciliation Form cp - SBAR form cp Addendum: 08/13/2021 18:23 Co-signature as Attending Physician, Alexandro Barrios MD I agree with the assessment and c benito plan of care. Signatures: Dispatcher [employer] Alexandro Cunningham MD MD cha Mickail, Joel, PA PA jmm Page, Corey, PA PA cp Owoade, Eunice, RN RN eo2 Sloane Aranda RN RN lr4 Corrections: (The following items were deleted from the chart) 08/09 16:41 16:31 Home Meds: Bactrim DS 800-160 mg Oral tab 1 tab 2 times per day; lr4 lr4 16:41 16:31 Home Meds: cetirizine 10 mg Oral chew 1 tab once daily; lr4 lr4 16:41 16:31 Home Meds: fluticasone inhalation 1 puff daily; lr4 lr4 16:41 16:31 Home Meds: nitrofurantoin macrocrystal 100 mg Oral cap 1 cap twice a day; lr4 lr4 18:26 17:25 Doctor cp cp 18:26 17:25 [facility] cp cp 18:53 18:26 DR Knox cp lr4
--- NOTE | 2021-08-09 17:26 | ER ---
Nurse's Notes [facility] Name: Manfred Mathews Age: 80 yrs Sex: Male : 1940 Arrival Date: 08/09/2021 Time: 16:22 Bed 23 Private MD: Diagnosis: Nontraumatic intracerebral hemorrhage, unspecified Presentation: 08/09 16:24 Chief complaint: EMS states: Pt bib ems for possible near syncopal episode earlier lr4 today. EMS states FAST exam negative upon arrival, and pt is unsure if he had a syncopal episode or not but states that he has been slightly "hazy", disoriented, lightheaded, and weak since this AM. Pt does not know the last time he has felt normal. Coronavirus screen: Vaccine status: Patient reports receiving the 2nd dose of the covid vaccine. Date September 2020. Ebola Screen: Patient negative for fever greater than or equal to 101.5 degrees Fahrenheit, and additional compatible Ebola Virus Disease symptoms. Initial Sepsis Screen: Does the patient meet any 2 criteria? No. Patient's initial sepsis screen is negative. Does the patient have a suspected source of infection? No. Patient's initial sepsis screen is negative. Risk Assessment: Do you want to hurt yourself or someone else? Patient reports no desire to harm self or others. Onset of symptoms was August 09, 2021. 16:24 Method Of Arrival: EMS lr4 16:24 Acuity: MARISOL 2 lr4 Triage Assessment: 16:31 General: Appears in no apparent distress. comfortable, Behavior is calm, cooperative. lr4 Pain: Denies pain. Neuro: No deficits noted. Level of Consciousness is awake, alert, obeys commands, Oriented to person, place, time, situation, Appropriate for age [employer] are equal bilaterally Moves all extremities. Speech is normal, Facial symmetry appears normal, Pupils are PERRLA, Intact. Cardiovascular: No deficits noted. Respiratory: No deficits noted. GI: Abdomen is round non-distended, hernia noted Bowel sounds present X 4 quads. Abd is soft and non tender. : No deficits noted. Musculoskeletal: No deficits noted. Historical: - Home Meds: 16:31 aspirin 81 mg Oral chew 1 tab once daily [Active]; lisinopril 5 mg Oral tab 1 tab twice lr4 a day [Active]; Lactobacillus acidophilus Oral [Active]; rosuvastatin 5 mg Oral tab 1 tab once daily [Active]; tamsulosin 0.4 mg Oral cp24 1 cap once daily [Active]; oxybutynin chloride 5 mg Oral tab 1 tab 3 times per day [Active]; docusate sodium 100 mg Oral tab 1 tab 2 times per day [Active]; - PMHx: 16:31 CAD; GALLSTONES; Hyperlipidemia; Kidney stones; Hypertension; Transient cerebral lr4 ischemia; Abdominal aortic aneurysm; - PSHx: 16:31 Coronary artery bypass graft; lr4 - Immunization history:: Adult Immunizations up to date, Client reports receiving the 2nd dose of the Covid vaccine, Date received: 2020. - Social history:: Smoking status: Patient/guardian denies using tobacco, the patient reports quitting approximately 10 years ago. Screenin:43 Abuse screen: Denies threats or abuse. Nutritional screening: No deficits noted. lr4 Tuberculosis screening: No symptoms or risk factors identified. Fall Risk No fall in past 12 months (0 pts). Secondary diagnosis (15 points) IV access (20 points). Ambulatory Aid- None/Bed Rest/Nurse Assist (0 pts). Gait- Weak (10 pts.). Mental Status- Oriented to own ability (0 pts). Total Lama Fall Scale indicates Low Risk Score (25-44 pts). Placed close to Nursing Station Frequent Obs/Assesments occuring Family Present and informed to notify staff if they need to leave bedside. Assessment: 17:23 Reassessment: SEE TRIAGE. eo2 18:51 Reassessment: Pt transported to [facility] via Life flight with all personal lr4 effects, vss, pt in nad, stable for transfer Patient states feeling better. Vital Signs: 16:24 BP 143 / 74; Pulse 84; Resp 26; Temp 97.9; Pulse Ox 94% on R/A; Weight 81.65 kg; Height lr4 5 ft. 7 in. (170.18 cm); Pain 0/10; 16:35 BP 157 / 73; Pulse 87; Resp 18; Pulse Ox 94% on R/A; lr4 17:10 BP 183 / 89; Pulse 96; Resp 19; Pulse Ox 97% on 2 lpm NC; Pain 0/10; eo2 17:30 BP 195 / 97; Pulse 95; Resp 18; Pulse Ox 95% ; Pain 0/10; eo2 18:00 BP 168 / 79; Pulse 76; Resp 15; Pulse Ox 99% 4 lpm ; Pain 0/10; eo2 18:30 BP 132 / 77; Pulse 77; Resp 18; Pulse Ox 99% on R/A; lr4 18:49 BP 141 / 90; Pulse 82; Resp 18; Pulse Ox 98% on R/A; lr4 16:24 Body Mass Index 28.19 (81.65 kg, 170.18 cm) lr4 ED Course: 16:22 Patient arrived in ED. eo2 16:23 Alexandro Gaitan PA is PHCP. cp 16:23 Alexandro Barrios MD is Attending Physician. cp 16:24 Sloane Aranda RN is Primary Nurse. lr4 16:31 Triage completed. lr4 16:44 Arm band placed on left wrist. lr4 16:44 Patient has correct armband on for positive identification. Placed in gown. Bed in low lr4 position. Call light in reach. Adult w/ patient. pvc monitor on. Pulse ox on. NIBP on. Door closed. Noise minimized. Warm blanket given. 16:44 No provider procedures requiring assistance completed. lr4 16:50 CT Head Brain wo Cont Sent. lr4 16:53 Basic Metabolic Panel Sent. lr4 16:53 LFT's Sent. lr4 16:53 Magnesium Sent. lr4 16:53 NT PRO-BNP Sent. lr4 16:53 Troponin HS Sent. lr4 17:02 CT Head Brain wo Cont In Process Unspecified. EDMS 17:08 XRAY Chest (1 view) In Process Unspecified. EDMS 17:23 initiated transfer to [facility]. bd 17:49 pt denied due to 20 holds in er,per VINAY Hernandez. bd 17:58 initiated transfer to [facility]. bd 18:51 Patient transferred, IV remains in place. lr4 18:54 pt accepted in transfer to [facility] by dr dela cruz admin approval given by anastacio Sellers rn. Administered Medications: 16:53 Drug: Meclizine 25 mg Route: PO; lr4 18:18 Follow up: Response: No adverse reaction eo2 18:27 Follow up: Response: No adverse reaction lr4 17:08 Drug: NS 0.9% 250 ml Route: IV; Rate: bolus; Site: right antecubital; lr4 17:30 Follow up: Response: No adverse reaction; IV Status: Completed infusion; IV Intake: eo2 250ml 18:28 Follow up: IV Status: Completed infusion lr4 17:30 Drug: NS 0.9% 250 ml Route: IV; Rate: 125 ml/hr; Site: right antecubital; eo2 18:28 Follow up: IV Status: Completed infusion lr4 17:44 Drug: Labetalol 10 mg Route: IVP; Site: right antecubital; eo2 18:13 Follow up: Response: No adverse reaction; Temperature is decreased eo2 18:30 Drug: Labetalol 10 mg Route: IVP; Infused Over: 2 mins; Site: right antecubital; lr4 18:48 Follow up: Response: Blood pressure is lowered lr4 Intake: 17:30 IV: 250ml; Total: 250ml. eo2 Outcome: 16:44 Condition: stable lr4 17:25 ER care complete, transfer ordered by . cp 18:50 Transferred by helicopter to [facility], Transfer form completed. X-rays sent lr4 w/ patient. Note: Report given to [place] at [facility] 18:50 Instructed on the need for transfer. 18:53 Patient left the ED. lr4 Signatures: Dispatcher [employer] EDMS Matilde Noel Corey, PA PA cp Owoade, Eunice, RN RN eo2 Sloane Aranda RN RN lr4 Corrections: (The following items were deleted from the chart) 16:41 16:31 Home Meds: Bactrim DS 800-160 mg Oral tab 1 tab 2 times per day; lr4 lr4 16:41 16:31 Home Meds: cetirizine 10 mg Oral chew 1 tab once daily; lr4 lr4 16:41 16:31 Home Meds: fluticasone inhalation 1 puff daily; lr4 lr4 16:41 16:31 Home Meds: nitrofurantoin macrocrystal 100 mg Oral cap 1 cap twice a day; lr4 lr4
[2021-08-09] MEDS ORDERED: LABETALOL 20 MG/4ML SYRINGE IV ONE ×2 (17:41→18:39)
[2021-08-09 18:38] LABS: Urine Blood Trace-intact (Negative); Urine Glucose Negative (Negative); Urine Protein Negative (Negative); Urine Specific Gravity 1.015 (1.005-1.030)
[2021-08-09 19:08] LABS: Urine RBC <5 /HPF (NONE SEEN)
[2021-08-09 19:09] LABS: Urine Bacteria <20 /HPF (NONE SEEN)
[2021-08-09 19:23] VITALS: TEMP 97.9
[2021-08-09 19:34] VITALS: BP 141/90; O2SAT 98
== END 2021-08-09 18:53 | disposition short-term general hospital (02) ==
LOC: ER 16:15
DX: I61.9 Nontraumatic intracerebral hemorrhage, unspecified (principal); I10 Essential (primary) hypertension; E78.5 Hyperlipidemia, unspecified; I25.10 Atherosclerotic heart disease of native coronary artery without angina pectoris; Z79.82 Long term (current) use of aspirin; Z20.822 Contact with and (suspected) exposure to COVID-19; Z95.1 Presence of aortocoronary bypass graft
CPT/HCPCS: 96365; 93005; 85025; 80048; 36415; 83735; 85610; 80076; 84484; 83880; 70450; 71045; 96375; 99285; U0003; J7040; 81003; 81015; J8597